=== PATIENT | male | born 1955 | race Caucasian/White ===

== ENCOUNTER 2018-05-28 12:17 | Observation (INO) | payer OTHER, SELFPAY ==
[2018-05-28] VITALS (14 sets, daily range): BP systolic 136–174; BP diastolic 81–107; PULSE 75–98; RESP 14–22; TEMP 36.6–37.1; O2SAT 95–99; BMI 28.1; BMI 27.8
--- NOTE | 2018-05-28 12:38 | CT_ITS ---
STUDY: CT BRAIN WITHOUT CONTRAST REASON FOR EXAM: Male, 62 years old. Numbness of the right side of the body. RADIATION DOSAGE (If Supplied By Facility): CTDIvol = ( 44.99 ) mGy, DLP = ( 812.98 ) mGycm TECHNIQUE: Transaxial CT imaging of the brain was performed without administration of intravenous contrast material. Individualized dose optimization techniques were used for this CT. COMPARISON: None. FINDINGS: Normal soft tissue structures. Normal calvarium. There is mild cerebral atrophy with widening of the extra-axial spaces and ventricular dilatation. Normal white matter tracts of the cerebral hemispheres. Normal basal ganglia and thalami. Normal brainstem. Normal cerebellum. There is no intracranial hemorrhage. There are no findings of an acute ischemic infarction. Atherosclerotic calcification of the cavernous portions of the internal carotid arteries bilaterally. Minimal mucosal thickening of the left maxillary sinus. CT/Brain/Head without Contrast IMPRESSION: Chronic involutional changes of the brain. Electronically Signed: Jorge Ellis MD at 13:44 EDT Tel [phone], Service support ,
--- NOTE | 2018-05-28 12:38 | EKG12_ITS ---
Test Reason : NEURO SX Blood Pressure : / mmHG Vent. Rate : 089 BPM Atrial Rate : 089 BPM P-R Int : 148 ms QRS Dur : 094 ms QT Int : 360 ms P-R-T Axes : 019 -16 004 degrees QTc Int : 438 ms Normal sinus rhythm Inferior infarct , age undetermined Abnormal ECG Confirmed by BRIAN ELIZABETH, LUCAS ([id number]), editor map ELMER ANTONY ([id number]) on 05/30/2018 9:56:50 AM Referred By: Edith Rodriguez Confirmed By:LUCAS TORRES MD
[2018-05-28] MEDS: 0.9% Normal Saline 1,000 ML 100 ML IV (13:16)
[2018-05-28 13:33] LABS: Absolute Lymphocyte Count 1.39 X10^3/ul (0.83-4.51); Absolute Neutrophil Count 4.4 X10^3/uL (2.0-7.7); Basophil# 0.03 X10^3/uL; Basophil% 0.5 % (0-1); Eosinophil# 0.09 X10^3/uL; Eosinophils% 1.4 % (0-5); Hematocrit 45.4 % (40-54); Hemoglobin 14.8 g/dl (13.0-16.5); Lymphocyte # 1.39 X10^3/ul (4.0); Lymphocyte % 21.4 % (19-41); Mean Corp Hgb Conc 32.6 g/gl (32-36); Mean Corpuscular Hgb 28.8 pg (27.0-32.0); Mean Corpuscular Volume 88.5 fL (80-94); Mean Platelet Vol. 9.3 fl (6.2-12.0); Monocyte% 9.2 % (0-10); Neutrophil # 4.39 X10^3/uL (2.7-7.7); Neutrophil % 67.3 % (47-70); Platelet Count 251 K/mm3 (150-450); RBC Distribution Width CV 14.4 % (11.6-14.6); RBC Distribution Width SD 46.6 fl (35.1-43.9); Red Blood Count 5.13 M/mm3 (4.6-6.2); White Blood Count 6.5 K/mm3 (4.4-11.0)
[2018-05-28 13:36] LABS: POSITIVE COUNT NO; POSITIVE DIFFERENTIAL NO; POSITIVE MORPHOLOGY NO
[2018-05-28 13:45] LABS: Bedside Glucose 98 mg/dL (70-110)
[2018-05-28 13:48] LABS: Anion Gap 9 (5-15); BUN 17 mg/dL (7-18); BUN/Creat Ratio 13.3 RATIO (10-20); Calcium,Total 9.3 mg/dL (8.5-10.1); Chloride 108 mmol/L (98-107); Creatinine, Serum 1.28 mg/dL (0.70-1.30); EST Glomerular Filtration Rate 61 mL/min (>60); Est Glom Filt Rate - Afr Amer 73 mL/min (>60); Estimated Creatinine Clearance 66.52 ml/min; Glucose 96 mg/dL (74-106); Potassium 3.6 mmol/L (3.5-5.1); Sodium Level 142 mmol/L (136-145)
[2018-05-28 13:57] LABS: International Normalized Ratio 0.9; Prothrombin Time (Protime)PT. 11.9 SECONDS (11.7-14.9)
--- NOTE | 2018-05-28 14:20 | ED.VISSUMM ---
- ER Visit Summary Date of Service: 05/28/18 Chief Complaint: Right-sided numbness History of Present Illness: The patient is a [address] Erwin Bae. He reports that 2 days ago he had numbness in his right face, hand, and foot the last approximately 15 minutes. This resolved and he did not think much of it. However, he reports that at 9:00 this morning the numbness on the right returned and has waxed and waned since that time. He reports that he still has paresthesias on the sole of his right foot. Patient denies any weakness, slurred speech, a aphasia, vertigo, or change in vision. Review of systems is negative. Physical Examination: Vitals: Stable. Afebrile. General: Well-nourished and well-developed. Head: Normocephalic atraumatic. Neck: Supple, no lymphadenopathy. No JVD. Nontender. Cardiovascular: Regular rate and rhythm. No murmurs. Respiratory: No respiratory distress. Clear to auscultation bilaterally. Abdominal: Soft, nontender, nondistended, normal bowel sounds. No guarding, rebound, or peritoneal signs. Back: Nontender. Extremities: Nontender, no edema. Skin: Normal color, no rash. Neurologic: Alert and oriented ?3. Cranial nerves II through XII are intact. Normal strength and sensation. Psych: Normal affect. Test Results: EKG is sinus at 89 with no acute changes. Troponin is negative. INR 0.9. PTT is 27.0. Chloride is 108. CBC is normal. CT brain shows chronic changes. Emergency Department Course and Treatment: Patient's NIH scale is 0. He is not a TPA candidate. Treatment Plan: Patient will be discussed with the hospitalist. He will be admitted for further evaluation and treatment. Disposition: Admitted in stable condition. Impression: 1. TIA. This note was generated with Cojoin dictation software. It may contain incorrect words, spelling, and punctuation that were not noted in review of the chart prior to signing ED Disposition - Plan for ED Patient: Chief Complaint: Neuro S/Sx Referrals: Erwin Bae MD [Primary Care Provider] -
--- NOTE | 2018-05-28 14:58 | ECHOD_ITS ---
Reason For Study: TIA/CVA Procedure This was a 2D Doppler, Color Flow transthoracic echocardiogram. The exam was of adequate technical quality. Exam performed portable in patient room. Left Ventricle Normal LV size. Left ventricular systolic function is normal. The estimated ejection fraction is 65 %. Diastolic function is indeterminate. No regional wall motion abnormalities noted. Right Ventricle Normal RV size. Normal systolic function. Atria Normal left atrium. Normal right atrium. No doppler evidence for ASD. Bubble contrast study negative for right to left interatrial shunt. Mitral Valve There is no mitral annular calcification. Mild focal mitral valve calcification of the posterior leaflet. The mitral valve chordae are thickened and/or calcified. Mild (1+) mitral valve insufficiency. Tricuspid Valve Normal tricuspid valve. Trivial tricuspid valve insufficiency. Right ventricular systolic pressure estimated to be 29 mmHg. Aortic Valve Trisinus/trileaflet aortic valve. Mild diffuse aortic valve thickening. Mild focal aortic valve calcification. Aortic sclerosis, no stenosis. Pulmonic Valve The pulmonic valve is not well visualized. Trivial pulmonic valve insufficiency. Great Vessels Normal sized aortic root. Pericardium/Pleural No pericardial effusion. Medication Performed a rapid injection of agitated mix of 9 cc saline and 1cc air to assess for atrial septal defect. MMode/2D Measurements & Calculations LVIDd: 4.5 cm IVSd: 1.2 cm Ao root diam: 3.4 cm LVIDs: 3.2 cm LVPWd: 1.1 cm LA dimension: 4.0 cm RVDd: 3.2 cm FS: 29.2 % LAV(MOD-bp): 57.1 ml LA A4 area: 17.6 cm2 RA A4 area: 13.9 cm2 LAV(MOD-bp) Indexed: 26.4 ml/m2 LAV(MOD-sp2): 59.8 ml LAV(MOD-sp4): 53.3 ml Doppler Measurements & Calculations MV E max beto: 54.7 cm/sec Lat Peak E' Beto: 9.0 cm/sec Med Peak E' Beto: 8.0 cm/sec MV A max beto: 64.8 cm/sec E/E' lat: 6.1 E/E' med: 6.8 MV E/A: 0.85 Ao V2 max: 90.5 cm/sec LV V1 max: 76.3 cm/sec PA V2 max: 74.2 cm/sec Ao max P.3 mmHg LV V1 max P.3 mmHg TR max beto: 252.3 cm/sec TR max P.6 mmHg Interpretation Summary Left ventricular systolic function is normal. The estimated ejection fraction is 65 %. Mild focal mitral valve calcification of the posterior leaflet. The mitral valve chordae are thickened and/or calcified. Mild (1+) mitral valve insufficiency. Trivial tricuspid valve insufficiency. Aortic sclerosis, no stenosis. Trivial pulmonic valve insufficiency. Right ventricular systolic pressure estimated to be 29 mmHg. Diastolic function is indeterminate. Bubble contrast study negative for right to left interatrial shunt. Ordering Physician: Edith Rodriguez Referring Physician: Erwin Bae Performed By: Radha Rios RDCS, RVT
--- NOTE | 2018-05-28 14:58 | MRI_ITS ---
STUDY: MRA NECK WITH AND WITHOUT CONTRAST REASON FOR EXAM: Male, 62 years old. Stroke TECHNIQUE: 3-D hjkl-[id number]-phbaup (TOF) imaging was performed in an 1.5 T MRI scanner. 9 ml of Gadavist was administered for the contrast enhanced images. COMPARISON: None. FINDINGS: RIGHT CAROTID ARTERIES: Normal right common carotid artery (CCA). Normal right common carotid bulb. Normal origin of the right internal carotid (ICA) artery without a hemodynamically significant stenosis. Normal visualized cervical portion of the right internal carotid artery. Normal origin of the right external carotid artery (ECA). LEFT CAROTID ARTERIES: Normal left common carotid artery (CCA). Normal left common carotid bulb. Normal origin of the left internal carotid (ICA) artery without a hemodynamically significant stenosis. Normal visualized cervical portion of the left internal carotid artery. Normal origin of the left external carotid artery (ECA). VERTEBRAL ARTERIES: Normal antegrade flow within the bilateral vertebral artery without a hemodynamically significant stenosis. MRI/MRA Neck WITH and W/O Contrast IMPRESSION: Normal bilateral cervical carotid and vertebral arteries. Electronically Signed: Cameron Rosenbaum MD at 20:58 EDT , Service support ,
--- NOTE | 2018-05-28 14:58 | MRI_ITS ---
STUDY: MRI BRAIN WITHOUT CONTRAST REASON FOR EXAM: Male, 62 years old. Right-sided numbness TECHNIQUE: Standardized multiplanar fat and water weighted pulse sequences were obtained. COMPARISON: CT of the brain on May 28, 2018 FINDINGS: Mild atrophy.. Minimal periventricular white matter ischemic changes without mass effect or restricted diffusion. Normal bilateral basal ganglia. Normal thalami. There is no extra-axial fluid accumulation. Normal flow voids within the major intracranial circulation suggesting patency by spin echo criteria. Empty sella deformity of uncertain clinical significance. Normal, infundibular stalk, optic chiasm and hypothalamus. Normal tectal plate and pineal gland. Normal midbrain, lake and medulla. Normal cerebellum. Normal basal cisterns. Normal bilateral temporal bones. Normal bilateral internal auditory canals. No demonstrated orbital abnormality, within the constraints of a routine brain study. Mild mucosal thickening of the bilateral maxillary and left sphenoid sinus Normal calvarium and skull base. Normal visualized soft tissue structures. Normal visualized upper cervical spine. MRI/Brain without Contrast IMPRESSION: Mild atrophy and minimal periventricular white matter disease without evidence for acute infarct.. Empty sella deformity of uncertain clinical significance Electronically Signed: Cameron Rosenbaum MD at 19:48 EDT , Service support ,
--- NOTE | 2018-05-28 15:00 | HP.PCM_ITS ---
Problem List (1) Benign prostatic hyperplasia Status: Chronic History of Present Illness Date of Admission: 05/28/18 Chief Complaint: Right-sided numbness. The patient is a 62 year old M with past medical history as mentioned above presented to the emergency room because of right-sided numbness. His symptoms started 2 days ago with numbness around the right corner his mouth, right hand and right foot that lasted for about 15-30 minutes and resolved spontaneously. On that day, patient did not pay attention to those symptoms. Today, he went to work and he started having exact same symptoms with numbness on the right side of his face on the corner of the mouth as well as right hand and right foot and his symptoms today lasted for about couple of hours and he decided to come to the emergency room. He reported associated ringing in the right ear as well as some discomfort in the back of his neck. He denied blurred vision, slurred speech, focal arm or leg weakness. He denied chest pain or shortness of breath. He denied vertigo or ear symptoms except right ear ringing which resolved. At this time, he mentioned that numbness in the right side is almost gone. In the emergency department, initial blood pressure was slightly elevated and improved. His NIH score was 0. His routine blood work was unremarkable. His EKG revealed normal sinus rhythm without evidence of cardiac arrhythmias or ischemic changes. His troponin was negative. Pro time and INR were normal. CT scan brain showed no acute findings. Patient is being admitted for right side paresthesia probably due to TIA for evaluation. Past Medical History Past Medical History (Chronic Problems): Chronic Problems Benign prostatic hyperplasia (Chronic) Allergies Penicillins Allergy (Verified 05/28/18 12:19) Anaphylaxis Home Medications: Ambulatory Orders Medication Instructions Recorded Aspirin [Aspirin EC] 81 mg PO DAILY 05/28/18 Caffeine 200 mg PO DAILY 05/28/18 Cranberry Fruit Extract [Cranberry] 250 mg PO DAILY 05/28/18 Green Tea [place] Extract [Green Tea 150 mg PO DAILY 05/28/18 Extract] L.acidoph,Paracasei, B.lactis 1 each PO PRN PRN 05/28/18 [Probiotic] Melatonin/Pyridoxine [Melatonin 5 5 mg PO QHS 05/28/18 mg Tablet] Multivitamin [Daily Multiple 1 tab PO DAILY 05/28/18 Vitamin] [place]-3 Fatty Acids/Fish Oil [Fish 1,000 mg PO DAILY 05/28/18 Oil 1,000 mg Capsule] Tamsulosin HCl [Flomax] 0.4 mg PO DAILY 05/28/18 Tyrosine [l-Tyrosine] 500 mg PO DAILY 05/28/18 Ubidecarenone [Co Q-10] 100 mg PO DAILY 05/28/18 Surgical History: no surgical history Psychiatric History: No pertinent psych hx Lives: Spouse/ Significant Other Smoking Status: Current every day smoker Tobacco Use: Vapor Alcohol: None Drugs: None - *Family History Maternal History Items: Stroke, - - Multiple myeloma. Paternal History Items: Hypertension Review of Systems Constitutional: Denies: Anorexia, Chills, Fever, Night Sweats Eyes: Denies: Blurred vision, Cataracts, Drainage, Eyelid Inflammation, Redness HEENT: Denies: Difficulty Hearing, Ear Pain, Eye Pain Cardiovascular: Denies: Chest Pain, Chest Pressure, Chest Tightness, Edema, Heaviness, Palpitations, Syncope Respiratory: Denies: Cough, Pleuritic Pain, Shortness of Breath, Sputum production, Wheezing Gastrointestinal: Denies: Abdominal Pain, Constipation, Diarrhea, Nausea, Vomiting Genitourinary: Denies: Dysuria, Frequency, Hematuria Musculoskeletal: Denies: Arm Pain, Back Pain, Foot Pain Skin: Denies: Dryness, Rash Neurological: Reports: Numbness, Tingling. Denies: Balance problems, Blurred vision, Double vision, Slurred speech, Confusion, Headaches, Incoordination Psychiatric: Denies: Anxiety, Depression Endocrine: Denies: Change in Body Habitus, Polydipsia VTE Information - Inpt Only VTE Present on Admission: No VTE Mechan Device Prophylaxis: None VTE Pharm Prophylaxis ordered?: Yes - Physical Exam General: Alert, Oriented x3, Cooperative, No apparent distress HEENT: Atraumatic, PERRLA, EOMI, Normocephalic Oral: Moist Mucosa, No Gingival or Mucosal Lesions/ Ulcerations Neck: Supple, No JVD, Negative Carotid Bruits, Trachea Midline, Thyroid Normal Size and Texture Lungs: Clear to auscultation, Normal air movement, No rhonchi, No wheeze, No rales Cardiovascular: Regular rate, Regular Rhythm, Normal S1, Normal S2, PMI Normal Abdomen: Bowel Sounds Present, Soft, Non Tender, Non-Distended, No Hepato- splenomegaly Extremities: No clubbing, No cyanosis, No edema Skin: No rashes, No breakdown Lymphatic: No Cervical, Supraclavicular, or Inguinal Adenopathy Neurological: Cranial nerves II-XII grossly intact, Motor Exam 5/5 strength throughout Psych/Mental Status: Normal Affect, Appropriate, Alert and oriented to time, place, person, mood and affect Vital Signs Temp Pulse Resp BP Pulse Ox 98.5 F 83 18 136/86 H 99 05/28/18 12:19 05/28/18 14:09 05/28/18 14:09 05/28/18 14:09 05/28/18 14:09 Oxygen Delivery Method Room Air Weight: 207 lb 10.807 oz Body Mass Index (BMI) 28.1 Finger Stick Blood Glucose 98 Laboratory Tests Past 24 Hrs 05/28/18 05/28/18 05/28/18 13:05 13:05 13:05 WBC 6.5 RBC 5.13 Hgb 14.8 Hct 45.4 MCV 88.5 MCH 28.8 MCHC 32.6 RDW 14.4 RDW Differential 46.6 H Plt Count 251 MPV 9.3 Immature Gran % (Auto) 0.200 Neut % (Auto) 67.3 Lymph % (Auto) 21.4 [place] % (Auto) 9.2 Eos % (Auto) 1.4 Baso % (Auto) 0.5 Absolute Neuts (auto) 4.4 Absolute Lymphs (auto) 1.39 Total Counted Not Reportable PT 11.9 INR 0.9 APTT 27.0 Sodium 142 Potassium 3.6 Chloride 108 H Carbon Dioxide 25.0 Anion Gap 9 BUN 17 Creatinine 1.28 Estim Creat Clear Calc 66.52 Est GFR (MDRD) Af Amer 73 Est GFR (MDRD) Non-Af 61 BUN/Creatinine Ratio 13.3 Glucose 96 Calcium 9.3 Troponin I < 0.015 POC Glucose 05/28/18 13:31 POC Glucose 98 Clinical Impression(s) from Imaging Studies Brain CT 05/28/18 12:38 IMPRESSION: Chronic involutional changes of the brain. Electronically Signed: Jorge Ellis MD at 13:44 EDT Tel [phone], Service support , Assessment/Plan This is a 62 years old male patient presented to the emergency room because of right side paresthesia and he is being admitted for evaluation for possible TIA. #1 right-sided paresthesia/probable TIA: CT scan brain without acute findings. At this time, NIH stroke score is 0. EKG revealed normal sinus rhythm without evidence of cardiac arrhythmias or ischemic changes. Neurological examination is intact, no focal deficits. Plan: Admit to PCU for observation, cardiac monitoring, NIH stroke scale, start aspirin 81 mg p.o. daily, Lipitor 80 mg p.o. daily, fasting lipid profile, MRI brain, MRA of the head and neck with and without contrast, 2D echocardiogram, monitor blood pressure. #2 benign prostatic hypertrophy: Continue Flomax. #3 DVT prophylaxis: Subcu Lovenox. This note was generated with [employer] dictation software. It may contain incorrect words, spelling, and punctuation that were not noted in checking the note before signing. Code Visit OBSV E&M: 02294 Initial observation care L2
[2018-05-28] MEDS: 0.9% NaCl Peripheral Flush Adult/Peds IV (16:03)
--- NOTE | 2018-05-28 18:15 | MRI_ITS ---
STUDY: MRA OF THE HEAD WITHOUT CONTRAST REASON FOR EXAM: Male, 62 years old. CVA TECHNIQUE: 3-D iouv-[id number]-rhrxys (TOF) imaging was performed with MIPs. The study was performed unenhanced. COMPARISON: None. FINDINGS: Normal bilateral petrous carotid arteries. Normal right cavernous carotid artery with a normal supraclinoid bifurcation. Normal left cavernous carotid artery with a normal supraclinoid bifurcation. Normal right A1 segments of the anterior cerebral artery. Severely narrowed left A1 segments of the anterior cerebral artery. Normal intact anterior communicating artery (ACOM). Normal bilateral A2 segments of the anterior cerebral arteries. Normal right M1 and M2 segments of the middle cerebral arteries, with a normal M1 bifurcation. Normal left M1 and M2 segments of the middle cerebral arteries, with a normal M1 bifurcation. Right posterior communicating artery not visualized consistent with normal variant.). Normal left posterior communicating artery (PCOM). Normal bilateral vertebral arteries. Normal basilar artery with a normal basilar bifurcation. The visualized bilateral superior cerebellar (SCA) arteries are normal. Normal bilateral P1, P2 and visualized P3 segments of the posterior cerebral arteries. There is no demonstrated aneurysm of the [place]. There is no major vessel occlusion or hemodynamically significant stenosis. There is no demonstrated abnormality of the visualized brain. MRI/MRA Head ONLY without Contrast IMPRESSION: Narrowed A1 segment of the left anterior cerebral artery No other significant abnormality Electronically Signed: Cameron Rosenbaum MD at 20:57 EDT , Service support ,
[2018-05-28] MEDS: Atorvastatin Calcium 80 MG Tablet PO (21:07)
[2018-05-29] VITALS (7 sets, daily range): BP systolic 143–149; BP diastolic 84–92; PULSE 67–96; RESP 16–18; TEMP 36.4–36.9; O2SAT 95–97; BMI 27.8
[2018-05-29 07:22] LABS: Cholesterol 240 mg/dL (200); High Density Lipoprotein 32 mg/dL; Triglycerides 87 mg/dL; Very Low Density Lipoprotein 17 mg/dL (5-40)
[2018-05-29] MEDS: Enoxaparin 40 MG/0.4 ML Syringe SC (08:33)
[2018-05-29] MEDS: Aspirin 81 MG TAB.CHEW PO (08:33)
[2018-05-29] MEDS: Tamsulosin HCl 0.4 MG Capsule PO (08:33)
--- NOTE | 2018-05-29 11:35 | PCM.DC ---
- Discharge Diagnoses Current Active Problems: Current Active and Chronic Problems Benign prostatic hyperplasia (Chronic) You will use the following diet at home:: Cardiac Discharge Activity: Return to Normal Activity Call your doctor if you observe: Numbness or Tingling, Shortness of breath, Dizziness, Fainting spells, Chest pain Allergies/Adverse Reactions: Allergies Penicillins Allergy (Verified 05/28/18 12:19) Anaphylaxis Medications to take at Discharge Aspirin [Aspirin EC] 81 mg PO DAILY 05/28/18 Caffeine 200 mg PO DAILY 05/28/18 Cranberry Fruit Extract [Cranberry] 250 mg PO DAILY 05/28/18 Green Tea [place] Extract [Green Tea Extract] 150 mg PO DAILY 05/28/18 L.acidoph,Paracasei, B.lactis [Probiotic] 1 each PO PRN PRN 05/28/18 Melatonin/Pyridoxine [Melatonin 5 mg Tablet] 5 mg PO QHS 05/28/18 Multivitamin [Daily Multiple Vitamin] 1 tab PO DAILY 05/28/18 [place]-3 Fatty Acids/Fish Oil [Fish Oil 1,000 mg Capsule] 1,000 mg PO DAILY 05/28/18 Tamsulosin HCl [Flomax] 0.4 mg PO DAILY 05/28/18 Tyrosine [l-Tyrosine] 500 mg PO DAILY 05/28/18 Ubidecarenone [Co Q-10] 100 mg PO DAILY 05/28/18 Atorvastatin Calcium 40 mg PO QHS #30 tablet 05/29/18 The following prescriptions were given: Atorvastatin Calcium 40 mg PO QHS #30 tablet Primary Care Physician: Erwin Bae MD [Primary Care Provider] - Please follow up with your Primary Care Physician in: 1 Week Test Results: Test results from this visit will be discussed in further detail at your follow-up appointment, if applicable. Please Follow Up With: Jos Wong MD When: 2-4 Weeks Proposed Discharge Date: 05/29/18
--- NOTE | 2018-05-29 11:38 | PCM.DC.SUM ---
<Blank Lloyd - Last Filed: 05/29/18 14:23> Discharge Date and Diagnosis Date of Admission: 05/28/18 Date of Discharge: 05/29/18 - Primary Discharge Diagnosis 1. Probable TIA 2. Hyperlipidemia - Secondary Discharge Diagnosis Chronic Problems Benign prostatic hyperplasia (Chronic) Hospital Course and Treatment Imaging Results: Diagnostic Data Brain CT 05/28/18 12:38 IMPRESSION: Chronic involutional changes of the brain. Electronically Signed: Jorge Ellis MD at 13:44 EDT Tel [phone], Service support , Brain MRI 05/28/18 14:58 IMPRESSION: Mild atrophy and minimal periventricular white matter disease without evidence for acute infarct.. Empty sella deformity of uncertain clinical significance Electronically Signed: Cameron Rosenbaum MD at 19:48 EDT , Service support , Neck MRA 05/28/18 14:58 IMPRESSION: Normal bilateral cervical carotid and vertebral arteries. Electronically Signed: Cameron Rosenbaum MD at 20:58 EDT , Service support , Head MRA 05/28/18 18:15 IMPRESSION: Narrowed A1 segment of the left anterior cerebral artery No other significant abnormality Electronically Signed: Cameron Rosenbaum MD at 20:57 EDT , Service support , Dr. Wong- Neurology Operations: None Procedures: 2-D Echocardiogram Summary of Care Provided: The patient is a 62 year old M admitted 05/28/2018 due to right-sided numbness. He has a past medical history of BPH. Neurology consulted. Probable TIA. MRI of brain showed no acute infarct. Neck MRA showed normal bilateral cervical carotid and vertebral arteries. Echocardiogram showed an EF of 65%, mild mitral valve insufficiency, RVSP estimated to be 29 mmHg. Negative for right to left intra-atrial shunt. Patient will continue home aspirin regimen. Started on statin for hyperlipidemia. EKG without ST-T changes. Troponin negative. Patient is stable for discharge home with follow-up with primary care physician in 1 week and neurology in 2-4 weeks. General: Alert, Oriented x3, Cooperative, No apparent distress HEENT: Atraumatic, PERRLA, EOMI, Normocephalic Oral: Moist Mucosa, No Gingival or Mucosal Lesions/ Ulcerations Neck: Supple, No JVD, Negative Carotid Bruits Lungs: Clear to auscultation, Normal air movement Cardiovascular: Regular rate, Regular Rhythm, Normal S1, Normal S2 Abdomen: Bowel Sounds Present, Soft, Non Tender, Non-Distended Extremities: No clubbing, No cyanosis, No edema Skin: No rashes, No breakdown Lymphatic: No Cervical, Supraclavicular, or Inguinal Adenopathy Neurological: Cranial nerves II-XII grossly intact, Motor Exam 5/5 strength throughout Psych/Mental Status: Normal Affect, Appropriate Patient seen exam prior to discharge. Physical assessment as noted above. Patient stable for discharge home with the follow-up her conditions as noted above. This patient was seen by SAMAN Lopez under the supervision of Dr. Love. - Physical Exam Vital Signs Temp Pulse Resp BP Pulse Ox 97.6 F L 76 18 149/92 H 97 05/29/18 08:29 05/29/18 11:32 05/29/18 08:29 05/29/18 08:29 05/29/18 08:29 Oxygen Delivery Method Room Air Weight: 205 lb 3.2 oz Body Mass Index (BMI) 27.8 Finger Stick Blood Glucose 98 Intake and Output for Last 24 Hours 05/27/18 05/28/18 05/29/18 23:59 23:59 23:59 Intake Total 240 / 240 480 / 480 Balance 240 / 240 480 / 480 Laboratory Tests Past 24 Hrs 05/28/18 05/28/18 05/28/18 13:05 13:05 13:05 WBC 6.5 RBC 5.13 Hgb 14.8 Hct 45.4 MCV 88.5 MCH 28.8 MCHC 32.6 RDW 14.4 RDW Differential 46.6 H Plt Count 251 MPV 9.3 Immature Gran % (Auto) 0.200 Neut % (Auto) 67.3 Lymph % (Auto) 21.4 [place] % (Auto) 9.2 Eos % (Auto) 1.4 Baso % (Auto) 0.5 Absolute Neuts (auto) 4.4 Absolute Lymphs (auto) 1.39 Total Counted Not Reportable PT 11.9 INR 0.9 APTT 27.0 Sodium 142 Potassium 3.6 Chloride 108 H Carbon Dioxide 25.0 Anion Gap 9 BUN 17 Creatinine 1.28 Estim Creat Clear Calc 66.52 Est GFR (MDRD) Af Amer 73 Est GFR (MDRD) Non-Af 61 BUN/Creatinine Ratio 13.3 Glucose 96 Calcium 9.3 Troponin I < 0.015 Triglycerides Cholesterol LDL Cholesterol VLDL Cholesterol HDL Cholesterol 05/29/18 06:42 WBC RBC Hgb Hct MCV MCH MCHC RDW RDW Differential Plt Count MPV Immature Gran % (Auto) Neut % (Auto) Lymph % (Auto) [place] % (Auto) Eos % (Auto) Baso % (Auto) Absolute Neuts (auto) Absolute Lymphs (auto) Total Counted PT INR APTT Sodium Potassium Chloride Carbon Dioxide Anion Gap BUN Creatinine Estim Creat Clear Calc Est GFR (MDRD) Af Amer Est GFR (MDRD) Non-Af BUN/Creatinine Ratio Glucose Calcium Troponin I Triglycerides 87 Cholesterol 240 H LDL Cholesterol 191 H VLDL Cholesterol 17 HDL Cholesterol 32 L POC Glucose 05/28/18 13:31 POC Glucose 98 Discharge Diet: Low fat/ Low Cholesterol Discharge Activity: Return to Normal Activity Call your doctor if you observe: Numbness or Tingling, Shortness of breath, Dizziness, Fainting spells, Chest pain Home Medications: Medications to take at Discharge Caffeine 200 mg PO DAILY 05/28/18 Cranberry Fruit Extract [Cranberry] 250 mg PO DAILY 05/28/18 Green Tea [place] Extract [Green Tea Extract] 150 mg PO DAILY 05/28/18 L.acidoph,Paracasei, B.lactis [Probiotic] 1 each PO PRN PRN 05/28/18 Melatonin/Pyridoxine [Melatonin 5 mg Tablet] 5 mg PO QHS 05/28/18 Multivitamin [Daily Multiple Vitamin] 1 tab PO DAILY 05/28/18 [place]-3 Fatty Acids/Fish Oil [Fish Oil 1,000 mg Capsule] 1,000 mg PO DAILY 05/28/18 Tamsulosin HCl [Flomax] 0.4 mg PO DAILY 05/28/18 Tyrosine [l-Tyrosine] 500 mg PO DAILY 05/28/18 Ubidecarenone [Co Q-10] 100 mg PO DAILY 05/28/18 Atorvastatin Calcium 40 mg PO QHS #30 tablet 05/29/18 Clopidogrel Bisulfate [Plavix] 75 mg PO DAILY #30 tablet 05/29/18 Following Prescrptions Were Given to Patient: Atorvastatin Calcium 40 mg PO QHS #30 tablet Clopidogrel Bisulfate [Plavix] 75 mg PO DAILY #30 tablet Primary Care Physician: Erwin Bae MD [Primary Care Provider] - Please follow up with your Primary Care Physician in: 1 Week Please Follow Up With: Jos Wong MD When: 2-4 Weeks Disposition: Home Minutes spent on discharge:: 35 Patient Condition:: Stable Medical Necessity - Tobacco Use Smoking Status: Current every day smoker Tobacco Use: Vapor, - Meaningful Use Info Meaningful Use Diagnoses (Choose all that apply): None applicable <[place]sil,[place] - Last Filed: 05/29/18 17:15> Discharge Date and Diagnosis - Secondary Discharge Diagnosis Chronic Problems (Last Updated 05/29/18 @ 13:59 by Jos Wong MD) Benign prostatic hyperplasia (Chronic) Hospital Course and Treatment Summary of Care Provided: The patient is a 62 year old M with no history of prior CVA or TIA who was admitted with right-sided numbness. Per H&P, patient had reported symptoms starting 2 days prior to admission with numbness around the right corner of his mouth, right hand and foods that lasted for less than 30 minutes and resolve spontaneously. Patient came in with the results presentation a couple of hours prior to admission. He had associated ringing in his right ears as well as discomfort in the back of his neck. This resolved. Patient had a initial CT scan level is unremarkable; showed chronic ambulatory changes. Had a brain MRI showed mild atrophic, minimal periventricular white matter disease without evidence of acute infarct. MRA of the neck showed bilateral cervical carotid and vertebral arteries. MRA of the head showed narrowed A1 segment of the left CHARITY He was seen by neurology, started on Plavix, statin, outpatient polysomnogram plan. Subjective: Patient was seen and examined on the day of discharge. He complains of tingling numbness on the right side of the face as well as the lips. This had resolved early on in the evening but has recurred. Denies any weakness in his extremities. Denies any dizziness or chest pain or shortness of breath. - Physical Exam General: Alert, Oriented x3, Cooperative, No apparent distress HEENT: Atraumatic, PERRLA, EOMI, Normocephalic Oral: Moist Mucosa Neck: Supple Lungs: Clear to auscultation, Normal air movement Cardiovascular: Regular rate, Regular Rhythm, Normal S1, Normal S2, No murmurs Abdomen: Bowel Sounds Present, Soft, Non Tender, Non-Distended, No Hepato-splenomegaly Extremities: No edema Skin: No rashes, No breakdown Musculoskeletal: No Tenderness to Palpation of Joints or Extremities Lymphatic: No Cervical, Supraclavicular, or Inguinal Adenopathy Neurological: Cranial nerves II-XII grossly intact, Neuro grossly intact - except for tingling and numbness on right side of face Psych/Mental Status: Normal Affect, Appropriate Vital Signs Temp Pulse Resp BP Pulse Ox 98.5 F 96 16 143/90 H 95 05/29/18 14:30 05/29/18 14:30 05/29/18 14:30 05/29/18 14:30 05/29/18 14:30 Oxygen Delivery Method Room Air Weight: 93.077 kg Body Mass Index (BMI) 27.8 Finger Stick Blood Glucose 98 Intake and Output for Last 24 Hours 05/27/18 05/28/18 05/29/18 23:59 23:59 23:59 Intake Total 240 / 240 960 / 960 Balance 240 / 240 960 / 960 Laboratory Tests Past 24 Hrs 05/29/18 06:42 Triglycerides 87 Cholesterol 240 H LDL Cholesterol 191 H VLDL Cholesterol 17 HDL Cholesterol 32 L Discharge Diet: 2000 mg Sodium Diet Code Visit OBSV E&M: 54617 Observation care discharge
--- NOTE | 2018-05-29 11:40 | DCINST_ITS ---
- Discharge Diagnoses Current Active Problems: Current Active and Chronic Problems Benign prostatic hyperplasia (Chronic) You will use the following diet at home:: Cardiac Discharge Activity: Return to Normal Activity Call your doctor if you observe: Numbness or Tingling, Shortness of breath, Dizziness, Fainting spells, Chest pain Allergies/Adverse Reactions: Allergies Penicillins Allergy (Verified 05/28/18 12:19) Anaphylaxis Medications to take at Discharge Aspirin [Aspirin EC] 81 mg PO DAILY 05/28/18 Caffeine 200 mg PO DAILY 05/28/18 Cranberry Fruit Extract [Cranberry] 250 mg PO DAILY 05/28/18 Green Tea [place] Extract [Green Tea Extract] 150 mg PO DAILY 05/28/18 L.acidoph,Paracasei, B.lactis [Probiotic] 1 each PO PRN PRN 05/28/18 Melatonin/Pyridoxine [Melatonin 5 mg Tablet] 5 mg PO QHS 05/28/18 Multivitamin [Daily Multiple Vitamin] 1 tab PO DAILY 05/28/18 [place]-3 Fatty Acids/Fish Oil [Fish Oil 1,000 mg Capsule] 1,000 mg PO DAILY 05/28/18 Tamsulosin HCl [Flomax] 0.4 mg PO DAILY 05/28/18 Tyrosine [l-Tyrosine] 500 mg PO DAILY 05/28/18 Ubidecarenone [Co Q-10] 100 mg PO DAILY 05/28/18 Atorvastatin Calcium 40 mg PO QHS #30 tablet 05/29/18 The following prescriptions were given: Atorvastatin Calcium 40 mg PO QHS #30 tablet Primary Care Physician: Erwin Bae MD [Primary Care Provider] - Please follow up with your Primary Care Physician in: 1 Week Test Results: Test results from this visit will be discussed in further detail at your follow- up appointment, if applicable. Please Follow Up With: Jos Wong MD When: 2-4 Weeks Proposed Discharge Date: 05/29/18
--- NOTE | 2018-05-29 11:44 | DS.PCM_ITS ---
Addendum entered and electronically signed by SAMAN Lopez 05/29/18 14:24: Code Visit Neurology recommending changing aspirin to Plavix at discharge due to possible small vessel ischemia. Patient will be discharged on Plavix 75 mg daily. Outpatient PSG ordered by neurology as well. Original Note: <Blank Lloyd - Last Filed: 05/29/18 14:23> Discharge Date and Diagnosis Date of Admission: 05/28/18 Date of Discharge: 05/29/18 - Primary Discharge Diagnosis 1. Probable TIA 2. Hyperlipidemia - Secondary Discharge Diagnosis Chronic Problems Benign prostatic hyperplasia (Chronic) Hospital Course and Treatment Imaging Results: Diagnostic Data Brain CT 05/28/18 12:38 IMPRESSION: Chronic involutional changes of the brain. Electronically Signed: Jorge Ellis MD at 13:44 EDT Tel [phone], Service support , Brain MRI 05/28/18 14:58 IMPRESSION: Mild atrophy and minimal periventricular white matter disease without evidence for acute infarct.. Empty sella deformity of uncertain clinical significance Electronically Signed: Cameron Rosenbaum MD at 19:48 EDT , Service support , Neck MRA 05/28/18 14:58 IMPRESSION: Normal bilateral cervical carotid and vertebral arteries. Electronically Signed: Cameron Rosenbaum MD at 20:58 EDT , Service support , Head MRA 05/28/18 18:15 IMPRESSION: Narrowed A1 segment of the left anterior cerebral artery No other significant abnormality Electronically Signed: Cameron Rosenbaum MD at 20:57 EDT , Service support , Dr. Wong- Neurology Operations: None Procedures: 2-D Echocardiogram Summary of Care Provided: The patient is a 62 year old M admitted 05/28/2018 due to right-sided numbness. He has a past medical history of BPH. Neurology consulted. Probable TIA. MRI of brain showed no acute infarct. Neck MRA showed normal bilateral cervical carotid and vertebral arteries. Echocardiogram showed an EF of 65%, mild mitral valve insufficiency, RVSP estimated to be 29 mmHg. Negative for right to left intra-atrial shunt. Patient will continue home aspirin regimen. Started on statin for hyperlipidemia. EKG without ST-T changes. Troponin negative. Patient is stable for discharge home with follow-up with primary care physician in 1 week and neurology in 2-4 weeks. General: Alert, Oriented x3, Cooperative, No apparent distress HEENT: Atraumatic, PERRLA, EOMI, Normocephalic Oral: Moist Mucosa, No Gingival or Mucosal Lesions/ Ulcerations Neck: Supple, No JVD, Negative Carotid Bruits Lungs: Clear to auscultation, Normal air movement Cardiovascular: Regular rate, Regular Rhythm, Normal S1, Normal S2 Abdomen: Bowel Sounds Present, Soft, Non Tender, Non-Distended Extremities: No clubbing, No cyanosis, No edema Skin: No rashes, No breakdown Lymphatic: No Cervical, Supraclavicular, or Inguinal Adenopathy Neurological: Cranial nerves II-XII grossly intact, Motor Exam 5/5 strength throughout Psych/Mental Status: Normal Affect, Appropriate Patient seen exam prior to discharge. Physical assessment as noted above. Patient stable for discharge home with the follow-up her conditions as noted above. This patient was seen by SAMAN Lopez under the supervision of Dr. Love. - Physical Exam Vital Signs Temp Pulse Resp BP Pulse Ox 97.6 F L 76 18 149/92 H 97 05/29/18 08:29 05/29/18 11:32 05/29/18 08:29 05/29/18 08:29 05/29/18 08:29 Oxygen Delivery Method Room Air Weight: 205 lb 3.2 oz Body Mass Index (BMI) 27.8 Finger Stick Blood Glucose 98 Intake and Output for Last 24 Hours 05/27/18 05/28/18 05/29/18 23:59 23:59 23:59 Intake Total 240 / 240 480 / 480 Balance 240 / 240 480 / 480 Laboratory Tests Past 24 Hrs 05/28/18 05/28/18 05/28/18 13:05 13:05 13:05 WBC 6.5 RBC 5.13 Hgb 14.8 Hct 45.4 MCV 88.5 MCH 28.8 MCHC 32.6 RDW 14.4 RDW Differential 46.6 H Plt Count 251 MPV 9.3 Immature Gran % (Auto) 0.200 Neut % (Auto) 67.3 Lymph % (Auto) 21.4 [place] % (Auto) 9.2 Eos % (Auto) 1.4 Baso % (Auto) 0.5 Absolute Neuts (auto) 4.4 Absolute Lymphs (auto) 1.39 Total Counted Not Reportable PT 11.9 INR 0.9 APTT 27.0 Sodium 142 Potassium 3.6 Chloride 108 H Carbon Dioxide 25.0 Anion Gap 9 BUN 17 Creatinine 1.28 Estim Creat Clear Calc 66.52 Est GFR (MDRD) Af Amer 73 Est GFR (MDRD) Non-Af 61 BUN/Creatinine Ratio 13.3 Glucose 96 Calcium 9.3 Troponin I < 0.015 Triglycerides Cholesterol LDL Cholesterol VLDL Cholesterol HDL Cholesterol 05/29/18 06:42 WBC RBC Hgb Hct MCV MCH MCHC RDW RDW Differential Plt Count MPV Immature Gran % (Auto) Neut % (Auto) Lymph % (Auto) [place] % (Auto) Eos % (Auto) Baso % (Auto) Absolute Neuts (auto) Absolute Lymphs (auto) Total Counted PT INR APTT Sodium Potassium Chloride Carbon Dioxide Anion Gap BUN Creatinine Estim Creat Clear Calc Est GFR (MDRD) Af Amer Est GFR (MDRD) Non-Af BUN/Creatinine Ratio Glucose Calcium Troponin I Triglycerides 87 Cholesterol 240 H LDL Cholesterol 191 H VLDL Cholesterol 17 HDL Cholesterol 32 L POC Glucose 05/28/18 13:31 POC Glucose 98 Discharge Diet: Low fat/ Low Cholesterol Discharge Activity: Return to Normal Activity Call your doctor if you observe: Numbness or Tingling, Shortness of breath, Dizziness, Fainting spells, Chest pain Home Medications: Medications to take at Discharge Caffeine 200 mg PO DAILY 05/28/18 Cranberry Fruit Extract [Cranberry] 250 mg PO DAILY 05/28/18 Green Tea [place] Extract [Green Tea Extract] 150 mg PO DAILY 05/28/18 L.acidoph,Paracasei, B.lactis [Probiotic] 1 each PO PRN PRN 05/28/18 Melatonin/Pyridoxine [Melatonin 5 mg Tablet] 5 mg PO QHS 05/28/18 Multivitamin [Daily Multiple Vitamin] 1 tab PO DAILY 05/28/18 [place]-3 Fatty Acids/Fish Oil [Fish Oil 1,000 mg Capsule] 1,000 mg PO DAILY 05/28/18 Tamsulosin HCl [Flomax] 0.4 mg PO DAILY 05/28/18 Tyrosine [l-Tyrosine] 500 mg PO DAILY 05/28/18 Ubidecarenone [Co Q-10] 100 mg PO DAILY 05/28/18 Atorvastatin Calcium 40 mg PO QHS #30 tablet 05/29/18 Clopidogrel Bisulfate [Plavix] 75 mg PO DAILY #30 tablet 05/29/18 Following Prescrptions Were Given to Patient: Atorvastatin Calcium 40 mg PO QHS #30 tablet Clopidogrel Bisulfate [Plavix] 75 mg PO DAILY #30 tablet Primary Care Physician: Erwin Bae MD [Primary Care Provider] - Please follow up with your Primary Care Physician in: 1 Week Please Follow Up With: Jos Wong MD When: 2-4 Weeks Disposition: Home Minutes spent on discharge:: 35 Patient Condition:: Stable Medical Necessity - Tobacco Use Smoking Status: Current every day smoker Tobacco Use: Vapor, - Meaningful Use Info Meaningful Use Diagnoses (Choose all that apply): None applicable <Paintsil,[place] - Last Filed: 05/29/18 17:15> Discharge Date and Diagnosis - Secondary Discharge Diagnosis Chronic Problems (Last Updated 05/29/18 @ 13:59 by Jos Wong MD) Benign prostatic hyperplasia (Chronic) Hospital Course and Treatment Summary of Care Provided: The patient is a 62 year old M with no history of prior CVA or TIA who was admitted with right-sided numbness. Per H&P, patient had reported symptoms starting 2 days prior to admission with numbness around the right corner of his mouth, right hand and foods that lasted for less than 30 minutes and resolve spontaneously. Patient came in with the results presentation a couple of hours prior to admission. He had associated ringing in his right ears as well as discomfort in the back of his neck. This resolved. Patient had a initial CT scan level is unremarkable; showed chronic ambulatory changes. Had a brain MRI showed mild atrophic, minimal periventricular white matter disease without evidence of acute infarct. MRA of the neck showed bilateral cervical carotid and vertebral arteries. MRA of the head showed narrowed A1 segment of the left CHARITY He was seen by neurology, started on Plavix, statin, outpatient polysomnogram plan. Subjective: Patient was seen and examined on the day of discharge. He complains of tingling numbness on the right side of the face as well as the lips. This had resolved early on in the evening but has recurred. Denies any weakness in his extremities. Denies any dizziness or chest pain or shortness of breath. - Physical Exam General: Alert, Oriented x3, Cooperative, No apparent distress HEENT: Atraumatic, PERRLA, EOMI, Normocephalic Oral: Moist Mucosa Neck: Supple Lungs: Clear to auscultation, Normal air movement Cardiovascular: Regular rate, Regular Rhythm, Normal S1, Normal S2, No murmurs Abdomen: Bowel Sounds Present, Soft, Non Tender, Non-Distended, No Hepato-splenomegaly Extremities: No edema Skin: No rashes, No breakdown Musculoskeletal: No Tenderness to Palpation of Joints or Extremities Lymphatic: No Cervical, Supraclavicular, or Inguinal Adenopathy Neurological: Cranial nerves II-XII grossly intact, Neuro grossly intact - except for tingling and numbness on right side of face Psych/Mental Status: Normal Affect, Appropriate Vital Signs Temp Pulse Resp BP Pulse Ox 98.5 F 96 16 143/90 H 95 05/29/18 14:30 05/29/18 14:30 05/29/18 14:30 05/29/18 14:30 05/29/18 14:30 Oxygen Delivery Method Room Air Weight: 93.077 kg Body Mass Index (BMI) 27.8 Finger Stick Blood Glucose 98 Intake and Output for Last 24 Hours 05/27/18 05/28/18 05/29/18 23:59 23:59 23:59 Intake Total 240 / 240 960 / 960 Balance 240 / 240 960 / 960 Laboratory Tests Past 24 Hrs 05/29/18 06:42 Triglycerides 87 Cholesterol 240 H LDL Cholesterol 191 H VLDL Cholesterol 17 HDL Cholesterol 32 L Discharge Diet: 2000 mg Sodium Diet Code Visit OBSV E&M: 90162 Observation care discharge
--- NOTE | 2018-05-29 13:47 | PCM.CONS.GEN ---
Reason for Consult Date of Consultation: 05/29/18 History of Present Illness: The patient is a 62 year old M reports initially symptoms briefly on sunday, then again yesterday morning in right foot while walking, lasted for 2hrs, went home and took an asa, went to physicians office, sent to ED, reports still now right hand and foot abnormal sensations as well as right upper lip. describes symptoms as similar to lidocaine. no recent illness, or med changes. takes asa daily at home. 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 per admit h&p:The patient is a 62 year old M with past medical history as mentioned above presented to the emergency room because of right-sided numbness. His symptoms started 2 days ago with numbness around the right corner his mouth, right hand and right foot that lasted for about 15-30 minutes and resolved spontaneously. On that day, patient did not pay attention to those symptoms. Today, he went to work and he started having exact same symptoms with numbness on the right side of his face on the corner of the mouth as well as right hand and right foot and his symptoms today lasted for about couple of hours and he decided to come to the emergency room. He reported associated ringing in the right ear as well as some discomfort in the back of his neck. He denied blurred vision, slurred speech, focal arm or leg weakness. He denied chest pain or shortness of breath. He denied vertigo or ear symptoms except right ear ringing which resolved. At this time, he mentioned that numbness in the right side is almost gone. In the emergency department, initial blood pressure was slightly elevated and improved. His NIH score was 0. His routine blood work was unremarkable. His EKG revealed normal sinus rhythm without evidence of cardiac arrhythmias or ischemic changes. His troponin was negative. Pro time and INR were normal. CT scan brain showed no acute findings. Patient is being admitted for right side paresthesia probably due to TIA for evaluation. Past Medical History Past Medical History (Chronic Problems): Chronic Problems (Last Updated 05/29/18 @ 13:59 by Jos Wong MD) Benign prostatic hyperplasia (Chronic) Medical History: Medical History (Last Updated 05/29/18 @ 13:59 by Jos Wong MD) Nephrolithiasis N20.0 Ulcerative colitis K51.90 Allergies Penicillins Allergy (Verified 05/28/18 12:19) Anaphylaxis Home Medications: Ambulatory Orders Medication Instructions Recorded Aspirin [Aspirin EC] 81 mg PO DAILY 05/28/18 Caffeine 200 mg PO DAILY 05/28/18 Cranberry Fruit Extract [Cranberry] 250 mg PO DAILY 05/28/18 Green Tea [place] Extract [Green Tea 150 mg PO DAILY 05/28/18 Extract] L.acidoph,Paracasei, B.lactis 1 each PO PRN PRN 05/28/18 [Probiotic] Melatonin/Pyridoxine [Melatonin 5 5 mg PO QHS 05/28/18 mg Tablet] Multivitamin [Daily Multiple 1 tab PO DAILY 05/28/18 Vitamin] [place]-3 Fatty Acids/Fish Oil [Fish 1,000 mg PO DAILY 05/28/18 Oil 1,000 mg Capsule] Tamsulosin HCl [Flomax] 0.4 mg PO DAILY 05/28/18 Tyrosine [l-Tyrosine] 500 mg PO DAILY 05/28/18 Ubidecarenone [Co Q-10] 100 mg PO DAILY 05/28/18 Atorvastatin Calcium 40 mg PO QHS #30 tablet 05/29/18 Surgical History: no surgical history Psychiatric History: No pertinent psych hx Lives: Spouse/ Significant Other Smoking Status: Current every day smoker Tobacco Use: Vapor, - Alcohol: None Drugs: None - *Family History Maternal History Items: Stroke, - - Multiple myeloma. Paternal History Items: Hypertension Review of Systems Constitutional: Denies: Chills, Fever, Weight Change HEENT: Denies: Head Aches, Sinus Congestion, Sinus Drainage Cardiovascular: Denies: Chest Pain, Palpitations Respiratory: Denies: Cough, Shortness of breath at rest, Sputum production Gastrointestinal: Denies: Abdominal Pain, Nausea, Vomiting Genitourinary: Denies: Dysuria Musculoskeletal: Denies: Joint Pain, Joint Tenderness Skin: Denies: Rash, Wounds Neurological: Denies: Numbness, Tingling, Focal weakness Psychiatric: Denies: Anxiety, Depression, Homicidal Ideations, Suicidal Ideations Hematologic/ Lymphatic: Denies: Easy Bruising, Easy Bleeding - Physical Exam General: Alert, Oriented x3, Cooperative HEENT: Atraumatic, PERRLA, EOMI, Normocephalic Musculoskeletal: No Tenderness to Palpation of Joints or Extremities Neurological: Cranial nerves II-XII grossly intact, Deep Tendon Reflexes 2+/4 and Symmetrical, Neuro grossly intact, Motor Exam 5/5 strength throughout, Muscle tone normal, Sensory exam intact to light touch and pain, Coordination normal, Gait narrow based and stable Psych/Mental Status: Normal Affect, Appropriate Vital Signs Temp Pulse Resp BP Pulse Ox 36.4 C L 76 18 149/92 H 97 05/29/18 08:29 05/29/18 11:32 05/29/18 08:29 05/29/18 08:29 05/29/18 08:29 Oxygen Delivery Method Room Air Weight: 93.077 kg Body Mass Index (BMI) 27.8 Finger Stick Blood Glucose 98 Intake and Output for Last 24 Hours 05/27/18 05/28/18 05/29/18 23:59 23:59 23:59 Intake Total 240 / 240 480 / 480 Balance 240 / 240 480 / 480 Laboratory Tests Past 24 Hrs 05/28/18 05/28/18 05/29/18 13:05 13:05 06:42 PT 11.9 INR 0.9 APTT 27.0 Sodium 142 Potassium 3.6 Chloride 108 H Carbon Dioxide 25.0 Anion Gap 9 BUN 17 Creatinine 1.28 Estim Creat Clear Calc 66.52 Est GFR (MDRD) Af Amer 73 Est GFR (MDRD) Non-Af 61 BUN/Creatinine Ratio 13.3 Glucose 96 Calcium 9.3 Troponin I < 0.015 Triglycerides 87 Cholesterol 240 H LDL Cholesterol 191 H VLDL Cholesterol 17 HDL Cholesterol 32 L Current Medications Acetaminophen 650 mg 05/28/18 14:58 Tylenol PO Q6H PRN PRN Fever, headache, pain Aspirin 81 mg 05/29/18 08:00 05/29/18 08:33 Aspirin, Baby PO 81 mg DAILY@0800 [facility] Administration Atorvastatin Calcium 80 mg 05/28/18 22:00 05/28/18 21:07 Lipitor PO 80 mg QHS MELECIO Administration Enoxaparin Sodium 40 mg 05/29/18 10:00 05/29/18 08:33 Lovenox SC 40 mg DAILY@1000 [facility] Administration Ondansetron HCl 4 mg 05/28/18 14:58 Zofran IV Q8H PRN PRN NAUSEA/VOMITING Sodium Chloride 5 - 30 ml 05/28/18 16:00 05/28/18 16:03 IV 10 ml UD PRN Administration SALINE FLUSH Tamsulosin HCl 0.4 mg 05/29/18 10:00 10/17/18 08:33 Flomax PO 0.4 mg DAILY MELECIO Administration mri, mra head/neck reviewed, normal echo normal Assessment/Plan mri negative small vessel infarct vs migraine equivalent plavix statin ok to dc if sinus on tele outpt psg (+ snoring, loud, witnessed apneas)
--- NOTE | 2018-05-29 13:51 | CON.PCM_ITS ---
Reason for Consult Date of Consultation: 05/29/18 History of Present Illness: The patient is a 62 year old M reports initially symptoms briefly on sunday, then again yesterday morning in right foot while walking, lasted for 2hrs, went home and took an asa, went to physicians office, sent to ED, reports still now right hand and foot abnormal sensations as well as right upper lip. describes symptoms as similar to lidocaine. no recent illness, or med changes. takes asa daily at home. 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 per admit h&p:The patient is a 62 year old M with past medical history as mentioned above presented to the emergency room because of right-sided numbness. His symptoms started 2 days ago with numbness around the right corner his mouth, right hand and right foot that lasted for about 15-30 minutes and resolved spontaneously. On that day, patient did not pay attention to those symptoms. Today, he went to work and he started having exact same symptoms with numbness on the right side of his face on the corner of the mouth as well as right hand and right foot and his symptoms today lasted for about couple of hours and he decided to come to the emergency room. He reported associated ringing in the right ear as well as some discomfort in the back of his neck. He denied blurred vision, slurred speech, focal arm or leg weakness. He denied chest pain or shortness of breath. He denied vertigo or ear symptoms except rig ht ear ringing which resolved. At this time, he mentioned that numbness in the right side is almost gone. In the emergency department, initial blood pressure was slightly elevated and improved. His NIH score was 0. His routine blood work was unremarkable. His EKG revealed normal sinus rhythm without evidence of cardiac arrhythmias or ischemic changes. His troponin was negative. Pro time and INR were normal. CT scan brain showed no acute findings. Patient is being admitted for right side paresthesia probably due to TIA for evaluation. Past Medical History Past Medical History (Chronic Problems): Chronic Problems (Last Updated 05/29/18 @ 13:59 by Jos Wong MD) Benign prostatic hyperplasia (Chronic) Medical History: Medical History (Last Updated 05/29/18 @ 13:59 by Jos Wong MD) Nephrolithiasis N20.0 Ulcerative colitis K51.90 Allergies Penicillins Allergy (Verified 05/28/18 12:19) Anaphylaxis Home Medications: Ambulatory Orders Medication Instructions Recorded Aspirin [Aspirin EC] 81 mg PO DAILY 05/28/18 Caffeine 200 mg PO DAILY 05/28/18 Cranberry Fruit Extract [Cranberry] 250 mg PO DAILY 05/28/18 Green Tea [place] Extract [Green Tea 150 mg PO DAILY 05/28/18 Extract] L.acidoph,Paracasei, B.lactis 1 each PO PRN PRN 05/28/18 [Probiotic] Melatonin/Pyridoxine [Melatonin 5 5 mg PO QHS 05/28/18 mg Tablet] Multivitamin [Daily Multiple 1 tab PO DAILY 05/28/18 Vitamin] [place]-3 Fatty Acids/Fish Oil [Fish 1,000 mg PO DAILY 05/28/18 Oil 1,000 mg Capsule] Tamsulosin HCl [Flomax] 0.4 mg PO DAILY 05/28/18 Tyrosine [l-Tyrosine] 500 mg PO DAILY 05/28/18 Ubidecarenone [Co Q-10] 100 mg PO DAILY 05/28/18 Atorvastatin Calcium 40 mg PO QHS #30 tablet 05/29/18 Surgical History: no surgical history Psychiatric History: No pertinent psych hx Lives: Spouse/ Significant Other Smoking Status: Current every day smoker Tobacco Use: Vapor, - Alcohol: None Drugs: None - *Family History Maternal History Items: Stroke, - - Multiple myeloma. Paternal History Items: Hypertension Review of Systems Constitutional: Denies: Chills, Fever, Weight Change HEENT: Denies: Head Aches, Sinus Congestion, Sinus Drainage Cardiovascular: Denies: Chest Pain, Palpitations Respiratory: Denies: Cough, Shortness of breath at rest, Sputum production Gastrointestinal: Denies: Abdominal Pain, Nausea, Vomiting Genitourinary: Denies: Dysuria Musculoskeletal: Denies: Joint Pain, Joint Tenderness Skin: Denies: Rash, Wounds Neurological: Denies: Numbness, Tingling, Focal weakness Psychiatric: Denies: Anxiety, Depression, Homicidal Ideations, Suicidal Ideations Hematologic/ Lymphatic: Denies: Easy Bruising, Easy Bleeding - Physical Exam General: Alert, Oriented x3, Cooperative HEENT: Atraumatic, PERRLA, EOMI, Normocephalic Musculoskeletal: No Tenderness to Palpation of Joints or Extremities Neurological: Cranial nerves II-XII grossly intact, Deep Tendon Reflexes 2+/4 and Symmetrical, Neuro grossly intact, Motor Exam 5/5 strength throughout, Muscle tone normal, Sensory exam intact to light touch and pain, Coordination normal, Gait narrow based and stable Psych/Mental Status: Normal Affect, Appropriate Vital Signs Temp Pulse Resp BP Pulse Ox 36.4 C L 76 18 149/92 H 97 05/29/18 08:29 05/29/18 11:32 05/29/18 08:29 05/29/18 08:29 05/29/18 08:29 Oxygen Delivery Method Room Air Weight: 93.077 kg Body Mass Index (BMI) 27.8 Finger Stick Blood Glucose 98 Intake and Output for Last 24 Hours 05/27/18 05/28/18 05/29/18 23:59 23:59 23:59 Intake Total 240 / 240 480 / 480 Balance 240 / 240 480 / 480 Laboratory Tests Past 24 Hrs 05/28/18 05/28/18 05/29/18 13:05 13:05 06:42 PT 11.9 INR 0.9 APTT 27.0 Sodium 142 Potassium 3.6 Chloride 108 H Carbon Dioxide 25.0 Anion Gap 9 BUN 17 Creatinine 1.28 Estim Creat Clear Calc 66.52 Est GFR (MDRD) Af Amer 73 Est GFR (MDRD) Non-Af 61 BUN/Creatinine Ratio 13.3 Glucose 96 Calcium 9.3 Troponin I < 0.015 Triglycerides 87 Cholesterol 240 H LDL Cholesterol 191 H VLDL Cholesterol 17 HDL Cholesterol 32 L Current Medications Acetaminophen 650 mg 05/28/18 14:58 Tylenol PO Q6H PRN PRN Fever, headache, pain Aspirin 81 mg 05/29/18 08:00 05/29/18 08:33 Aspirin, Baby PO 81 mg DAILY@0800 [facility] Administration Atorvastatin Calcium 80 mg 05/28/18 22:00 05/28/18 21:07 Lipitor PO 80 mg QHS MELECIO Administration Enoxaparin Sodium 40 mg 05/29/18 10:00 05/29/18 08:33 Lovenox SC 40 mg DAILY@1000 [facility] Administration Ondansetron HCl 4 mg 05/28/18 14:58 Zofran IV Q8H PRN PRN NAUSEA/VOMITING Sodium Chloride 5 - 30 ml 05/28/18 16:00 05/28/18 16:03 IV 10 ml UD PRN Administration SALINE FLUSH Tamsulosin HCl 0.4 mg 05/29/18 10:00 05/29/18 08:33 Flomax PO 0.4 mg DAILY MELECIO Administration mri, mra head/neck reviewed, normal echo normal Assessment/Plan mri negative small vessel infarct vs migraine equivalent plavix statin ok to dc if sinus on tele outpt psg (+ snoring, loud, witnessed apneas)
== END 2018-05-29 13:28 | disposition home or self-care (01) ==
LOC: ED 13:27 → PCU 14:44
PROVIDERS: Admitting Provider Hospitalist; Emergency Provider Emergency Medicine; Family Provider Family Medicine; PCP Family Medicine; Referring Provider Hospitalist; Visit Provider Internal Medicine
DX: R20.0 Anesthesia of skin (principal); N40.0 Benign prostatic hyperplasia without lower urinary tract symptoms; E78.5 Hyperlipidemia, unspecified; I08.3 Combined rheumatic disorders of mitral, aortic and tricuspid valves; R20.2 Paresthesia of skin; R29.700 NIHSS score 0; Z79.899 Other long term (current) drug therapy; K51.90 Ulcerative colitis, unspecified, without complications; F17.290 Nicotine dependence, other tobacco product, uncomplicated; Z23 Encounter for immunization; Z79.82 Long term (current) use of aspirin
CPT/HCPCS: 36415; 70450; 70544; 70549; 70551; 80048; 80061; 82962; 84484; 85025; 85610; 85730; 93005; 93306; 96360; 96361; 96372; 99218; 99283; 99406; A9585; Q9957; 90686; A4216; G0378

== ENCOUNTER → 2018-06-05 15:25 | Outpatient (CLI) | payer OTHER, SELFPAY ==
[2018-06-05 18:05] LABS: Absolute Lymphocyte Count 1.95 X10^3/ul (0.83-4.51); Absolute Neutrophil Count 4.7 X10^3/uL (2.0-7.7); Basophil# 0.03 X10^3/uL; Basophil% 0.4 % (0-1); Eosinophil# 0.17 X10^3/uL; Eosinophils% 2.2 % (0-5); Hematocrit 45.8 % (40-54); Hemoglobin 14.7 g/dl (13.0-16.5); Lymphocyte # 1.95 X10^3/ul (4.0); Lymphocyte % 25.7 % (19-41); Mean Corp Hgb Conc 32.1 g/gl (32-36); Mean Corpuscular Hgb 28.7 pg (27.0-32.0); Mean Corpuscular Volume 89.3 fL (80-94); Mean Platelet Vol. 9.5 fl (6.2-12.0); Monocyte# 0.74 X10^3/uL; Monocyte% 9.8 % (0-10); Neutrophil # 4.68 X10^3/uL (2.7-7.7); Neutrophil % 61.8 % (47-70); Platelet Count 254 K/mm3 (150-450); RBC Distribution Width CV 14.4 % (11.6-14.6); RBC Distribution Width SD 46.7 fl (35.1-43.9); Red Blood Count 5.13 M/mm3 (4.6-6.2); White Blood Count 7.6 K/mm3 (4.4-11.0)
[2018-06-05 18:06] LABS: ALB/GLOB Ratio 0.9 RATIO (0.9-2.4); AST(SGOT) 19 U/L (15-37); Alanine Aminotransfer ALT/SGPT 36 U/L (16-61); Albumin, Serum 3.7 g/dL (3.2-5.0); Alkaline Phosphatase 82 U/L (45-117); Anion Gap 9 (5-15); BUN 16 mg/dL (7-18); BUN/Creat Ratio 13.2 RATIO (10-20); Chloride 106 mmol/L (98-107); Creatinine, Serum 1.21 mg/dL (0.70-1.30); EST Glomerular Filtration Rate 65 mL/min (>60); Est Glom Filt Rate - Afr Amer 78 mL/min (>60); Globulin 3.9 g/dL (2.2-4.2); Glucose 79 mg/dL (74-106); Potassium 3.7 mmol/L (3.5-5.1); Protein, Total 7.6 g/dL (6.4-8.2); Sodium Level 140 mmol/L (136-145); Thyroid Stim Hormone (TSH) 0.34 uIU/mL (0.358-3.74)
[2018-06-05 18:11] LABS: POSITIVE COUNT NO; POSITIVE DIFFERENTIAL NO; POSITIVE MORPHOLOGY NO
[2018-06-05 18:24] LABS: Erythrocyte Sedimentation Rate 13 mm/hr (0-20)
[2018-06-07 04:14] LABS: Rapid Plasmin Reagin (RPR) NONREACTIVE (NONREACTIVE)
[2018-06-08 14:01] LABS: ANTINUCLEAR ANTIBODIES DIRECT Negative (Negative)
[2018-06-10 16:08] LABS: PROELU- Albumin, Urine 45.1 % (.); PROELU- Alpha-1-Globulin,Ur 2.3 % (.); PROELU- Alpha-2-Globulin,Ur 10.7 % (.); PROELU- Beta Globulin, Ur 23.6 % (.); PROELU- Gamma Globulin, Ur 18.2 % (.); Total Protein, Ur 11.9 mg/dL (Not Estab.)
[2018-06-10 20:07] LABS: Lyme IgG P18 Ab Absent (.); Lyme IgG P23 Ab Present (.); Lyme IgG P28 Ab Absent (.); Lyme IgG P30 Ab Absent (.); Lyme IgG P39 Ab Absent (.); Lyme IgG P41 Ab Present (.); Lyme IgG P45 Ab Absent (.); Lyme IgG P58 Ab Absent (.); Lyme IgG P66 Ab Absent (.); Lyme IgG P93 Ab Absent (.); Lyme IgM P23 Ab Absent (.); Lyme IgM P39 Ab Absent (.); Lyme IgM P41 Ab Absent (.); PROEL- A/G Ratio 1.1 (0.7-1.7); PROEL- Albumin 3.7 g/dL (2.9-4.4); PROEL- Alpha-1 Globulin 0.2 g/dL (0.0-0.4); PROEL- Alpha-2 Globulin 0.7 g/dL (0.4-1.0); PROEL- Beta Globulin 1.5 g/dL (0.7-1.3); PROEL- Gamma Globulin 1.1 g/dL (0.4-1.8); PROEL- Globulin, Total 3.5 g/dL (2.2-3.9); PROEL- TOTAL PROTEIN 7.2 g/dL (6.0-8.5)
[2018-06-11 10:42] LABS: Lyme IgG WB Interpretation Negative (.); Lyme IgM WB Interpretation Negative (.)
== END ==
PROVIDERS: Family Provider Family Medicine; PCP Family Medicine; Referring Provider Family Medicine; Visit Provider Family Medicine
DX: R29.818 Other symptoms and signs involving the nervous system (principal)
CPT/HCPCS: 36415; 80053; 84165; 84166; 84443; 85025; 85652; 86038; 86592; 86617

== ENCOUNTER 2018-07-04 22:12 | Emergency (ER) | payer OTHER, SELFPAY ==
[2018-07-04 22:12] VITALS: BP 100/66; BP 84/61; PULSE 109; PULSE 112; RESP 19; RESP 24; TEMP 35.5; O2SAT 100; BMI 27.8
--- NOTE | 2018-07-04 22:38 | EKG12_ITS ---
Test Reason : SYNCOPE Blood Pressure : / mmHG Vent. Rate : 109 BPM Atrial Rate : 109 BPM P-R Int : 136 ms QRS Dur : 076 ms QT Int : 330 ms P-R-T Axes : 015 -13 036 degrees QTc Int : 444 ms Sinus tachycardia Otherwise normal ECG Confirmed by BRIAN ELIZABETH, LUCAS ([id number]), electronic news gathering editor TIMOTHY HINTON ([id number]) on 07/08/2018 9:38:01 AM Referred By: NORMA Confirmed By:LUCAS TORRES MD
--- NOTE | 2018-07-04 22:39 | CT_ITS ---
STUDY: CT CERVICAL SPINE WITHOUT CONTRAST REASON FOR EXAM: Male, 62 years old. Trauma. RADIATION DOSAGE (If Supplied By Facility): CTDIvol = ( 13.60 ) mGy, DLP = ( 288.10 ) mGycm TECHNIQUE: High resolution transaxial imaging was performed without contrast material. Sagittal and coronal images were reconstructed. Individualized dose optimization techniques were used for this CT. COMPARISON: None FINDINGS: Normal craniovertebral junction. There are degenerative changes of the anterior atlantoaxial articulation. Normal odontoid process. There is straightening of the normal cervical lordosis. Normal vertebral bodies and posterior osseous elements. C2-3: Normal endplates. Normal disc height and morphology. There is facet and uncovertebral joint degenerative change. Normal central canal and intervertebral neuroforamina. C3-4: Normal endplates. Normal disc height and morphology. There is facet and uncovertebral joint degenerative change. Normal central canal and intervertebral neuroforamina. C4-5: There is loss of disc height with endplate spondylosis. There is facet and uncovertebral joint degenerative change.. Normal central canal there is mild narrowing of the right intervertebral neuroforamen. C5-6: There is loss of disc height with endplate spondylosis. There is facet and uncovertebral joint degenerative change. Normal central canal. There is narrowing of the bilateral intervertebral neuroforamina. C6-7: There is loss of disc height with endplate spondylosis. There is facet and uncovertebral joint degenerative change. Normal central canal. There is narrowing of the bilateral intervertebral neuroforamina. C7-T1: Normal endplates. Normal disc height and morphology. Normal central canal and intervertebral neuroforamina. There is a prominent left thyroid lobe which extends substernally. It contains multiple coarse calcifications and displaces the trachea to the right. CT/Spine Cervical without Contras IMPRESSION: 1. Degenerative changes cervical spine without visualized fracture or subluxation. 2. Enlarged left thyroid lobe Electronically Signed: Parveen Washington DO at 23:42 EST Tel [phone], Service support ,
--- NOTE | 2018-07-04 22:39 | CT_ITS ---
STUDY: CT BRAIN WITHOUT CONTRAST REASON FOR EXAM: Male, 62 years old. Trauma. Facial lacerations. RADIATION DOSAGE (If Supplied By Facility): CTDIvol = ( 44.99 ) mGy, DLP = ( 863.60 ) mGycm TECHNIQUE: Transaxial CT imaging of the brain was performed without administration of intravenous contrast material. Individualized dose optimization techniques were used for this CT. COMPARISON: May 28, 2018. FINDINGS: Normal soft tissue structures. Normal calvarium. Normal size ventricles and extra-axial spaces for the patient's age. Normal white matter tracts of the cerebral hemispheres. Normal basal ganglia and thalami. Normal brainstem. Normal cerebellum. There is no intracranial hemorrhage. There are no findings of an acute ischemic infarction. Normal visualized paranasal sinuses. CT/Brain/Head without Contrast IMPRESSION: Acute intracranial or calvarial abnormality or major interval change. Electronically Signed: Parveen Washington DO at 23:43 EST Tel [phone], Service support ,
--- NOTE | 2018-07-04 22:41 | ED.VISSUMM ---
- ER Visit Summary Date of Service: 07/04/18 Chief Complaint: syncopal episode and lower GI bleed History of Present Illness: The patient is a 62 M with history of ulcerative colitis who presents for syncopal episode and GI bleed. Patient states he has been having dark tarry bloody stools for the last 2 days. This evening his heard him fall in the basement. She found him unresponsive on the basement floor. She states he was doing agonal breathing, and described as gasping. She performed chest compressions on him. He was moving unresponsive when EMS arrived. Patient is denying any headache or neck pain at this time. He denies any chest pain, shortness of breath, abdominal pain. He does state he has been having the bleeding. His last colonoscopy was over 10 years ago. He is on Plavix. Physical Examination: Vital signs: afebrile, hypotensive and tachycardic, no hypoxia on room air General: well nourished, well developed, in moderate distress Skin: warm, dry, pale, conjunctiva pallor and pallor of the palmar creases, superficial 0.5 cm lacerations to the mid forehead x2 HEENT: normocephalic and atraumatic; PERRL, EOMI, moist mucous membranes Cardiovascular: Tachycardic rate and rhythm without murmurs, no peripheral edema, 2+ pulses all distal extremities noted, no chest wall tenderness Respiratory: No increased work of breathing, lungs are clear to auscultation bilaterally, no rales, rhonchi or wheezing Abdominal: Abdomen is soft, nontender with normoactive bowel sounds, no guarding or rebound, no masses, large amount of coagulated dark purplish black blood in patient's underwear and around his rectum MSK: Moves all extremities, no deformities, normal strength, contusions noted to the left lateral proximal lower leg Neuro: Awake and alert, oriented ?4. No facial droop, sensation and motor function intact and symmetric Test Results: Abnormal Lab Results 07/04/18 07/04/18 07/04/18 23:07 23:07 23:07 WBC 15.5 H RBC 3.20 L Hgb 9.4 L Hct 29.1 L MCV 90.9 MCH 29.4 MCHC 32.3 RDW 14.2 RDW Differential 46.0 H Plt Count 285 MPV 10.1 Immature Gran % (Auto) 0.300 Neut % (Auto) 80.9 H Lymph % (Auto) 12.8 L [place] % (Auto) 5.3 Eos % (Auto) 0.6 Baso % (Auto) 0.1 Absolute Neuts (auto) 12.6 H Absolute Lymphs (auto) 1.99 Total Counted Not Reportable Sodium 139 Potassium 5.0 Chloride 116 H Carbon Dioxide 17.0 L Anion Gap 6 BUN 41 H Creatinine 1.26 Estim Creat Clear Calc 65.57 Est GFR (MDRD) Af Amer 75 Est GFR (MDRD) Non-Af 62 BUN/Creatinine Ratio 32.5 H Glucose 149 H Lactic Acid 1.8 Calcium 7.6 L Total Bilirubin 0.50 AST 26 ALT 24 Alkaline Phosphatase 55 Troponin I < 0.015 Total Protein 5.5 L Albumin 2.7 L Globulin 2.8 Albumin/Globulin Ratio 1.0 Crossmatch 07/04/18 23:07 WBC RBC Hgb Hct MCV MCH MCHC RDW RDW Differential Plt Count MPV Immature Gran % (Auto) Neut % (Auto) Lymph % (Auto) [place] % (Auto) Eos % (Auto) Baso % (Auto) Absolute Neuts (auto) Absolute Lymphs (auto) Total Counted Sodium Potassium Chloride Carbon Dioxide Anion Gap BUN Creatinine Estim Creat Clear Calc Est GFR (MDRD) Af Amer Est GFR (MDRD) Non-Af BUN/Creatinine Ratio Glucose Lactic Acid Calcium Total Bilirubin AST ALT Alkaline Phosphatase Troponin I Total Protein Albumin Globulin Albumin/Globulin Ratio Crossmatch See Detail Clinical Impression(s) from Imaging Studies Brain CT 07/04/18 22:39 There is no intracranial hemorrhage. There are no findings of an acute ischemic infarction. Electronically Signed: Parveen Washington DO at 23:43 EST Tel [phone], Service support , Cervical Spine CT 07/04/18 22:39 IMPRESSION: 1. Degenerative changes cervical spine without visualized fracture or subluxation. 2. Enlarged left thyroid lobe Medications Given Sodium Chloride () 1,000 mls @ 999 mls/hr IV .Q1H1M ONE Stop: 07/05/18 00:21 Last Admin: 07/04/18 23:30 Dose: 999 mls/hr Discontinued Medications Pantoprazole Sodium 80 mg/ (Sodium Chloride) 35 mls @ 420 mls/hr IV BOLUS X1 ONE Stop: 07/04/18 22:44 Last Admin: 07/04/18 23:40 Dose: 420 mls/hr Emergency Department Course and Treatment: Patient presents after a syncopal episode with symptomatic lower GI bleeding for 2 days. Syncope is most likely due to patient's lower GI bleeding. Patient has small superficial forehead lacerations that will not require suturing. Head CT showed no intracranial hemorrhage. C-spine CT showed no fractures. Patient was given 2 units of uncrossed matched blood due to hemodynamic instability in the setting of a brisk symptomatic lower GI bleed. Hemoglobin is 9.4, which likely does not reflect the true hemoglobin after the large amount of blood loss at the time of patient's initial evaluation. Patient was discussed with [facility] Dr. Melgar for transfer to the ICU at [facility] for emergent intervention of symptomatic lower GI bleed with hemodynamic instability. Patient was awake and alert with no focal neuro deficits during his ED course. Treatment Plan: [] Disposition: [] Impression: Lower GI bleed, syncopal episode, hemodynamic instability, superficial forehead lacerations This note was generated with [employer] dictation software. It may contain incorrect words, spelling, and punctuation that were not noted in review of the chart prior to signing ED Disposition - Plan for ED Patient: Chief Complaint: Syncope Referrals: Erwin Bae MD [Primary Care Provider] -
--- NOTE | 2018-07-04 22:44 | ED.DCSUM_ITS ---
- ER Visit Summary Date of Service: 07/04/18 Chief Complaint: syncopal episode and lower GI bleed History of Present Illness: The patient is a 62 M with history of ulcerative colitis who presents for syncopal episode and GI bleed. Patient states he has been having dark tarry bloody stools for the last 2 days. This evening his heard him fall in the basement. She found him unresponsive on the basement floor. She states he was doing agonal breathing, and described as gasping. She performed chest compressions on him. He was moving unresponsive when EMS arrived. Patient is denying any headache or neck pain at this time. He denies any chest pain, shortness of breath, abdominal pain. He does state he has been having the bleeding. His last colonoscopy was over 10 years ago. He is on Plavix. Physical Examination: Vital signs: afebrile, hypotensive and tachycardic, no hypoxia on room air General: well nourished, well developed, in moderate distress Skin: warm, dry, pale, conjunctiva pallor and pallor of the palmar creases, superficial 0.5 cm lacerations to the mid forehead x2 HEENT: normocephalic and atraumatic; PERRL, EOMI, moist mucous membranes Cardiovascular: Tachycardic rate and rhythm without murmurs, no peripheral edema, 2+ pulses all distal extremities noted, no chest wall tenderness Respiratory: No increased work of breathing, lungs are clear to auscultation bilaterally, no rales, rhonchi or wheezing Abdominal: Abdomen is soft, nontender with normoactive bowel sounds, no guarding or rebound, no masses, large amount of coagulated dark purplish black blood in patient's underwear and around his rectum MSK: Moves all extremities, no deformities, normal strength, contusions noted to the left lateral proximal lower leg Neuro: Awake and alert, oriented ?4. No facial droop, sensation and motor function intact and symmetric Test Results: Abnormal Lab Results 07/04/18 07/04/18 07/04/18 23:07 23:07 23:07 WBC 15.5 H RBC 3.20 L Hgb 9.4 L Hct 29.1 L MCV 90.9 MCH 29.4 MCHC 32.3 RDW 14.2 RDW Differential 46.0 H Plt Count 285 MPV 10.1 Immature Gran % (Auto) 0.300 Neut % (Auto) 80.9 H Lymph % (Auto) 12.8 L [place] % (Auto) 5.3 Eos % (Auto) 0.6 Baso % (Auto) 0.1 Absolute Neuts (auto) 12.6 H Absolute Lymphs (auto) 1.99 Total Counted Not Reportable Sodium 139 Potassium 5.0 Chloride 116 H Carbon Dioxide 17.0 L Anion Gap 6 BUN 41 H Creatinine 1.26 Estim Creat Clear Calc 65.57 Est GFR (MDRD) Af Amer 75 Est GFR (MDRD) Non-Af 62 BUN/Creatinine Ratio 32.5 H Glucose 149 H Lactic Acid 1.8 Calcium 7.6 L Total Bilirubin 0.50 AST 26 ALT 24 Alkaline Phosphatase 55 Troponin I < 0.015 Total Protein 5.5 L Albumin 2.7 L Globulin 2.8 Albumin/Globulin Ratio 1.0 Crossmatch 07/04/18 23:07 WBC RBC Hgb Hct MCV MCH MCHC RDW RDW Differential Plt Count MPV Immature Gran % (Auto) Neut % (Auto) Lymph % (Auto) [place] % (Auto) Eos % (Auto) Baso % (Auto) Absolute Neuts (auto) Absolute Lymphs (auto) Total Counted Sodium Potassium Chloride Carbon Dioxide Anion Gap BUN Creatinine Estim Creat Clear Calc Est GFR (MDRD) Af Amer Est GFR (MDRD) Non-Af BUN/Creatinine Ratio Glucose Lactic Acid Calcium Total Bilirubin AST ALT Alkaline Phosphatase Troponin I Total Protein Albumin Globulin Albumin/Globulin Ratio Crossmatch See Detail Clinical Impression(s) from Imaging Studies Brain CT 07/04/18 22:39 There is no intracranial hemorrhage. There are no findings of an acute ischemic infarction. Electronically Signed: Parveen Washington DO at 23:43 EST Tel [phone], Service support , Cervical Spine CT 07/04/18 22:39 IMPRESSION: 1. Degenerative changes cervical spine without visualized fracture or subluxation. 2. Enlarged left thyroid lobe Medications Given Sodium Chloride () 1,000 mls @ 999 mls/hr IV .Q1H1M ONE Stop: 07/05/18 00:21 Last Admin: 07/04/18 23:30 Dose: 999 mls/hr Discontinued Medications Pantoprazole Sodium 80 mg/ (Sodium Chloride) 35 mls @ 420 mls/hr IV BOLUS X1 ONE Stop: 07/04/18 22:44 Last Admin: 07/04/18 23:40 Dose: 420 mls/hr Emergency Department Course and Treatment: Patient presents after a syncopal episode with symptomatic lower GI bleeding for 2 days. Syncope is most likely due to patient's lower GI bleeding. Patient has small superficial forehead lacerations that will not require suturing. Head CT showed no intracranial hemorrhage. C-spine CT showed no fractures. Patient was given 2 units of uncrossed matched blood due to hemodynamic instability in the setting of a brisk symptomatic lower GI bleed. Hemoglobin is 9.4, which likely does not reflect the true hemoglobin after the large amount of blood loss at the time of patient's initial evaluation. Patient was discussed with [facility] Dr. Melgar for transfer to the ICU at [facility] for emergent intervention of symptomatic lower GI bleed with hemodynamic instability. Patient was awake and alert with no focal neuro deficits during his ED course. Treatment Plan: [] Disposition: [] Impression: Lower GI bleed, syncopal episode, hemodynamic instability, superficial forehead lacerations This note was generated with [facility] dictation software. It may contain incorrect words, spelling, and punctuation that were not noted in review of the chart prior to signing ED Disposition - Plan for ED Patient: Chief Complaint: Syncope Referrals: Erwin Bae MD [Primary Care Provider] -
[2018-07-04 23:10] VITALS: BP 81/69; PULSE 94; RESP 14; TEMP 36.4; O2SAT 100
[2018-07-04 23:26] LABS: Absolute Lymphocyte Count 1.99 X10^3/ul (0.83-4.51); Absolute Neutrophil Count 12.6 X10^3/uL (2.0-7.7); Basophil# 0.02 X10^3/uL; Basophil% 0.1 % (0-1); Eosinophil# 0.09 X10^3/uL; Eosinophils% 0.6 % (0-5); Hematocrit 29.1 % (40-54); Hemoglobin 9.4 g/dl (13.0-16.5); Lymphocyte # 1.99 X10^3/ul (4.0); Lymphocyte % 12.8 % (19-41); Mean Corp Hgb Conc 32.3 g/gl (32-36); Mean Corpuscular Hgb 29.4 pg (27.0-32.0); Mean Corpuscular Volume 90.9 fL (80-94); Mean Platelet Vol. 10.1 fl (6.2-12.0); Monocyte# 0.82 X10^3/uL; Monocyte% 5.3 % (0-10); Neutrophil # 12.57 X10^3/uL (2.7-7.7); Neutrophil % 80.9 % (47-70); Platelet Count 285 K/mm3 (150-450); RBC Distribution Width CV 14.2 % (11.6-14.6); White Blood Count 15.5 K/mm3 (4.4-11.0)
[2018-07-04 23:27] LABS: POSITIVE COUNT NO; POSITIVE DIFFERENTIAL NO; POSITIVE MORPHOLOGY NO
--- NOTE | 2018-07-04 23:28 | NURSING ---
ACCEPTED TO [place] [id number] ROOM NUMBER [phone] REPORT
[2018-07-04] MEDS: 0.9% Normal Saline 1,000 ML 999 ML IV (23:30)
[2018-07-04 23:40] LABS: AST(SGOT) 26 U/L (15-37); Alanine Aminotransfer ALT/SGPT 24 U/L (16-61); Albumin, Serum 2.7 g/dL (3.2-5.0); Alkaline Phosphatase 55 U/L (45-117); Anion Gap 6 (5-15); BUN 41 mg/dL (7-18); BUN/Creat Ratio 32.5 RATIO (10-20); Calcium,Total 7.6 mg/dL (8.5-10.1); Chloride 116 mmol/L (98-107); Creatinine, Serum 1.26 mg/dL (0.70-1.30); EST Glomerular Filtration Rate 62 mL/min (>60); Est Glom Filt Rate - Afr Amer 75 mL/min (>60); Estimated Creatinine Clearance 65.57 ml/min; Globulin 2.8 g/dL (2.2-4.2); Glucose 149 mg/dL (74-106); Lactic Acid 1.8 mmol/L (0.4-2.0); Protein, Total 5.5 g/dL (6.4-8.2); Sodium Level 139 mmol/L (136-145)
[2018-07-04 23:41] VITALS: BP 112/70; PULSE 107; RESP 16; TEMP 36.3; O2SAT 100
--- NOTE | 2018-07-04 23:45 | NURSING ---
[facility]
[2018-07-04 23:56] VITALS: BP 118/69; PULSE 104; RESP 16; TEMP 36.3; O2SAT 100
[2018-07-05] VITALS (8 sets, daily range): BP systolic 100–118; BP diastolic 66–82; PULSE 94–109; RESP 13–22; TEMP 36.3–36.4; O2SAT 99–100
[2018-07-05 00:08] LABS: International Normalized Ratio 1.2; Partial Thromboplast Time 23.1 Seconds (24.1-36.2); Prothrombin Time (Protime)PT. 14.7 SECONDS (11.7-14.9)
--- NOTE | 2018-07-05 01:41 | ED.RN ---
pt second unit of blood transfusing on transfer. when pt left ed, blood transfused 200ml, with 200ml left to transfuse. vs stable.
== END 2018-07-05 01:42 | disposition short-term general hospital (02) ==
LOC: ED 23:06
PROVIDERS: Emergency Provider Emergency Medicine; Family Provider Family Medicine; PCP Family Medicine
DX: K92.2 Gastrointestinal hemorrhage, unspecified (principal); R55 Syncope and collapse; R09.89 Other specified symptoms and signs involving the circulatory and respiratory systems; S01.81XA Laceration without foreign body of other part of head, initial encounter; W19.XXXA Unspecified fall, initial encounter; Y93.9 Activity, unspecified; Y92.9 Unspecified place or not applicable; E04.9 Nontoxic goiter, unspecified; K51.90 Ulcerative colitis, unspecified, without complications; Z79.02 Long term (current) use of antithrombotics/antiplatelets; Z79.899 Other long term (current) drug therapy
CPT/HCPCS: 70450; 72125; 80053; 83605; 84484; 85025; 85610; 85730; 86850; 86900; 86920; 93005; 96374; 99285; J7030; J7040; P9016; A4216; J3490

== ENCOUNTER → 2018-07-15 11:11 | Outpatient (CLI) | payer OTHER, SELFPAY ==
[2018-07-04 22:12] VITALS: BMI 27.8
[2018-07-15 12:32] LABS: Absolute Lymphocyte Count 1.25 X10^3/ul (0.83-4.51); Basophil# 0.03 X10^3/uL; Basophil% 0.4 % (0-1); Eosinophil# 0.28 X10^3/uL; Eosinophils% 3.4 % (0-5); Hemoglobin 9.5 g/dl (13.0-16.5); Lymphocyte # 1.25 X10^3/ul (4.0); Lymphocyte % 15.2 % (19-41); Mean Corp Hgb Conc 31.7 g/gl (32-36); Mean Corpuscular Hgb 29.1 pg (27.0-32.0); Mean Platelet Vol. 8.8 fl (6.2-12.0); Monocyte% 8.5 % (0-10); Neutrophil # 5.95 X10^3/uL (2.7-7.7); Neutrophil % 72.4 % (47-70); Platelet Count 430 K/mm3 (150-450); RBC Distribution Width CV 15.4 % (11.6-14.6); RET-HE 23.3 pg (30-35); Red Blood Count 3.26 M/mm3 (4.6-6.2); Reticulocyte Count 4.62 % (0.5-1.5); White Blood Count 8.2 K/mm3 (4.4-11.0)
[2018-07-15 12:37] LABS: POSITIVE COUNT NO; POSITIVE DIFFERENTIAL NO; POSITIVE MORPHOLOGY NO
[2018-07-15 13:06] LABS: ALB/GLOB Ratio 0.7 RATIO (0.9-2.4); AST(SGOT) 23 U/L (15-37); Alanine Aminotransfer ALT/SGPT 37 U/L (16-61); Albumin, Serum 2.7 g/dL (3.2-5.0); Alkaline Phosphatase 95 U/L (45-117); Anion Gap 9 (5-15); BUN 17 mg/dL (7-18); Calcium,Total 8.2 mg/dL (8.5-10.1); Chloride 110 mmol/L (98-107); Creatinine, Serum 1.13 mg/dL (0.70-1.30); EST Glomerular Filtration Rate 70 mL/min (>60); Est Glom Filt Rate - Afr Amer 85 mL/min (>60); Ferritin 66 ng/mL (26-388); Globulin 3.9 g/dL (2.2-4.2); Glucose 90 mg/dL (74-106); Protein, Total 6.6 g/dL (6.4-8.2); Sodium Level 144 mmol/L (136-145)
--- OUTSIDE RECORDS SUMMARY | 2018-09-07 17:06 | XMS RPT_ITS ---
:1955 Author Organization OHIP Care Team Providers Name Role Phone Bae, Erwin Primary Care Unavailable Ashelfah, Ghasem Admitting Unavailable Ashelfah, Ghasem Referring Unavailable Paintsil, Wagener Attending Unavailable Jos Wong Consulting Unavailable Ashelfah, Ghasem Admitting Unavailable Ashelfah, Ghasem Attending Unavailable Ashelfah, Ghasem Referring Unavailable Bae, Erwin Primary Care Unavailable Ashelfah, Ghasem Consulting Unavailable Ashelfah, Ghasem Admitting Unavailable Blank Lloyd NP-Apolinar Attending Unavailable Ashelfah, Ghasem Referring Unavailable Bae, Erwin Primary Care Unavailable Jos Wong Consulting Unavailable Paintsil, Wagener Consulting Unavailable Bae, Erwin Attending Unavailable Bae, Erwin Referring Unavailable Bae, Erwin Primary Care Unavailable Gordy Perdomo Attending Unavailable Ashelfah, Ghasem Referring Unavailable Bae, Erwin Primary Care Unavailable Hortensia De Oliveira Attending Unavailable Bae, Erwin Attending Unavailable Bae, Erwin Referring Unavailable Bae, Erwin Primary Care Unavailable Bae, Erwin Attending Unavailable Bae, Erwin Referring Unavailable Bae, Erwin Primary Care Unavailable RIC MELGAR Admitting Unavailable JUNAID HACKETT Attending Unavailable REFUGIO GOODMAN JR Consulting Unavailable RIC MELGAR Admitting Unavailable MD LEW AB Attending Unavailable TOM MAGALLANES) Consulting Unavailable DIEGO FOWLER Consulting Unavailable NAYELY PLASCENCIA Consulting Unavailable REFUGIO GOODMAN Consulting Unavailable PROBLEMS PROBLEMS DATE TYPE CONDITION / CODE ATTENDING STATUS SOURCE 07/11/2018 Active Melena / ALSHURBAJI, Active K92.1(ICD-10) [facility] Other [place] Repository 07/11/2018 Active Hemorrhage of ALSRBAJI, Active anus and rectum [facility] Other [place] / K62.5(ICD-10) Repository 07/05/2018 Active Syncope and ALSHURBAJI, Active collapse / [facility] Other [place] R55(ICD-10) Repository 07/11/2018 Admitting Unknown / MD LEW Active [place] [facility] diagnosis UNK(Unknown) [facility] Repository 06/05/2018 Unknown R29.818 - Other Erwin Bae Active [place] symptoms and Community signs involving Hospital the nervous Repository system / R29.818(ICD-10) PROCEDURES PROCEDURES No Procedure Records FoundRESULTS RESULTS THYROID Observed: 07/23/2018 Status: F Source: [place] 2:53 PM [facility] REPOSITORY [facility] Imaging Services [address] [place] [address] Thyroid MR#: [id number] Acct: [id number] Name: FRANCISCA VELASQUEZ Rep #: [id number] : 1955 M 63 From: Chacho Morse PCP: Erwin Bae MD Status: REG CLI Study: Thyroid Date of Exam: 07/23/18 Exam# [id number] Ordering Dr: Erwin Bae MD STUDY: THYROID ULTRASOUND REASON FOR EXAM: Male, 63 years old. Enlarged thyroid gland. TECHNIQUE: Ultrasound evaluation of the thyroid was performed with real-time and static [place]-scale imaging. COMPARISON: CT cervical spine 07/04/2018. FINDINGS: RIGHT LOBE: The right lobe of the thyroid gland is enlarged and measures 7.3 x 2.5 x 2.5 cm. There is a heterogeneous echotexture. Multiple nodules, midpole solid measuring 2.3 x 1.5 x 1.9 cm, inferior pole solid measuring 2.1 x 2.0 x 1.8 cm, inferior pole cystic measuring 0.7 x 0.7 x 0.6 cm, with peripheral wall calcification, and superior pole complex solid measuring 1.4 x 0.9 x 0.8 cm. LEFT LOBE: The left lobe of the thyroid gland is enlarged and measures 9.3 x 2.9 x 4.0 cm cm. There is a heterogeneous echotexture. Solid nodule inferior pole measuring 2.2 x 2.1 x 1.8 cm on the images provided there is a solid nodule superior pole measuring 2.3 x 1.5 x 2.1 cm. ISTHMUS: The isthmus measures 0.7 cm which is enlarged. Isthmic solid nodule measuring 1.7 x 1.4 x 1.1 cm. . The regional lymph nodes are normal. Increased vascularity in both lobes. US/Thyroid IMPRESSION: Significantly enlarged thyroid gland containing multiple primarily solid nodules the largest nodule in both lobes measuring 2.3 cm. Electronically Signed: Chacho Morse MD at 3:56 EST , Service support , CC: Erwin Bae MD Senior Portfolio Manager: Signed CBC W/DIFF, AUTOMATED Collected: 07/15/2018 Status: F Source: [place] 11:21 AM [facility] REPOSITORY TYPE CODE TESTS RESULT OUT OF RANGE REFERENCE UNITS LAB L100.1000 4.4-11.0 K/mm3 Normal WBC 8.2 LAB L100.1200 4.6-6.2 M/mm3 Low RBC 3.26 LAB L100.1300 13.0-16.5 g/dl Low HGB 9.5 LAB L100.1400 40-54 % Low HCT 30.0 LAB L100.1500 80-94 fL Normal MCV 92.0 LAB L100.1600 27.0-32.0 pg Normal MCH 29.1 LAB L100.1700 32-36 g/gl Low MCHC 31.7 LAB L100.1810 11.6-14.6 % High RDW CV 15.4 LAB L100.1820 35.1-43.9 fl High RDW SD 49.0 LAB L100.1900 150-450 K/mm3 Normal PLT 430 LAB L100.2000 6.2-12.0 fl Normal MPV 8.8 LAB L100.2100 47-70 % High NEUT% 72.4 LAB L100.2200 19-41 % Low LY% 15.2 LAB L100.2300 0-10 % Normal MONO% 8.5 LAB L100.2400 0-5 % Normal EO% 3.4 LAB L100.2500 0-1 % Normal BASO% 0.4 LAB L100.2550 0.0-0.9 % Normal IM GRAN % 0.100 Result Comment: IG% - Immature Granulocytes (promyelocytes, myelocytes and metamyelocytes) > 1% indicates that a LEFT SHIFT is Present. LAB L100.2620 2.0-7.7 X10 3/uL Normal Absolute Neut 6.0 LAB L100.2720 0.83-4.51 X10 3/ul Normal Absolute Lymph 1.25 Performed By: #### L100.0100, L100.9950 #### [facility] [address] [place], [place], [address] RETIC PANEL Collected: 07/15/2018 Status: F Source: [place] 11:21 AM [facility] REPOSITORY TYPE CODE TESTS RESULT OUT OF RANGE REFERENCE UNITS LAB L101.0000 0.5-1.5 % High RETIC 4.62 LAB L101.0060 3.00-15.90 % High IM RET FRACTION 18.20 LAB L101.0090 30-35 pg Low RET-HE 23.3 LAB L101.0110 1.0-7.9 % Normal IPF 1.0 Result Comment: Low PLT + Low IPF suggest a bone marrow production disorder Low PLT + high IPF suggests peripheral destruction (e.g.ITP, TTP, HIT, DIC, autoimmune) or bone marrow recovery Trending of serial IPF measurements is recommended when evaluating for bone marrow respones Value above normal range indicates an increase in RBC cellular response from bone marrow. Performed By: #### L100.0100, L100.9950 #### [facility] [address] [facility] [place], [address] COMPREHENSIVE METABOLIC Collected: 07/15/2018 Status: F Source: [facility] 11:21 AM [facility] REPOSITORY TYPE CODE TESTS RESULT OUT OF RANGE REFERENCE UNITS LAB L501.0100 74-106 mg/dL Normal GLU 90 Result Comment: Please note revised GLUCOSE reference range effective 2017. LAB L501.1000 7-18 mg/dL Normal BUN 17 LAB L501.1100 0.70-1.30 mg/dL Normal CREAT,SERUM 1.13 Result Comment: The validity of the calculated GFR AND GFRAA in patients over 70 years has not been determined. Clinical correlation is essential. LAB L501.1110 >60 mL/min Normal EST GFR 70 Result Comment: Non- GFR Calc LAB L501.1115 >60 mL/min Normal EST GFR - AA 85 Result Comment: GFR Calc LAB L501.1300 10-20 RATIO Normal BUN/CRE 15.0 LAB L501.1500 6.4-8.2 g/dL T Normal PROT 6.6 LAB L501.1800 3.2-5.0 g/dL Low ALB 2.7 LAB L501.1950 2.2-4.2 g/dL Normal GLOB 3.9 LAB L501.2000 0.9-2.4 RATIO Low A/G 0.7 LAB L501.2200 8.5-10.1 mg/dL Low CA 8.2 LAB L501.4100 15-37 U/L Normal AST 23 LAB L501.4305 45-117 U/L Normal ALK P 95 LAB L501.4405 16-61 U/L Normal ALT 37 LAB L501.4600 0.20-1.00 mg/dL T Normal BILI 0.70 LAB L501.5300 136-145 mmol/L NA Normal 144 LAB L501.5600 3.5-5.1 mmol/L K Normal 4.0 LAB L501.5900 98-107 mmol/L High CL 110 LAB L501.6100 21.0-32.0 mmol/L Normal CO2 25.0 LAB L501.6200 5-15 Normal GAP 9 Performed By: #### L500.4050, L503.6550 #### [facility] [address] [place], [address] FERRITIN Collected: 07/15/2018 Status: F Source: [place] 11:21 AM [facility] REPOSITORY TYPE CODE TESTS RESULT OUT OF RANGE REFERENCE UNITS LAB L503.6550 26-388 ng/mL Normal FERRITIN 66 Performed By: #### L500.4050, L503.6550 #### [facility] [address] [place], [address] 12 LEAD ELECTROCARDIOGRAM Observed: 07/12/2018 Status: F Source: [place] 9:21 AM [facility] REPOSITORY [facility] Cardiovascular Services [address] [place] [address] 12 Lead EKG 07/04/18 2221 MR#: [id number] Acct: [id number] Name: FRANCISCA VELASQUEZ Rep #: [id number] : 1955 62 From: Marc Gunn MD Attending Dr: Status: DEP ER Ordering Dr: Hortensia De Oliveira MD Date: 07/04/18 Location: ED Sex: M C Admitted: Test Reason : SYNCOPE Blood Pressure : / mmHG Vent. Rate : 109 BPM Atrial Rate : 109 BPM P-R Int : 136 ms QRS Dur : 076 ms QT Int : 330 ms P-R-T Axes : 015 -13 036 degrees QTc Int : 444 ms Sinus tachycardia Otherwise normal ECG Confirmed by MARC GUNN MD ([id number]), marketing editor TIMOTHY HINTON ([id number]) on 07/08/2018 9:38:01 AM Referred By: NORMA Confirmed By:MARC GUNN MD 07/08/18 0938 Date Marc Gunn MD CC: Erwin Bae MD; Hortensia De Oliveira MD Signed NURSING PROG Observed: 07/11/2018 Status: COMPLETED Source: [facility] 4:57 PM CLINIC OTHER [place] REPOSITORY HNO ID: [id number] Author: Helga MonteroRn) JUVE Law Service: (none) Author Type: Registered Nurse Type: Nursing Progress Note Filed: 07/11/2018 4:58 PM Note Text: Dr Hackett states to have patient start plavix tomorrow 07/12/2018 CNDS Observed: 07/11/2018 Status: COMPLETED Source: [place] [facility] 4:[address] [facility] OTHER [place] REPOSITORY HNO ID: [id number] Author: Junaid Hackett Service: Hospital Medicine Author Type: Physician Type: Discharge Summaries Filed: 07/11/2018 4:57 PM Note Text: DISCHARGE SUMMARY PATIENT NAME: Francisca Velasquez ADMISSION DATE: 07/05/2018 DISCHARGE DATE: 07/11/2018 ATTENDING PHYSICIAN: Junaid Hackett Code Status: Full Code Highest Readmission Risk Score: 11 The 30 day readmissions risk score is derived from an internally validated risk model which evaluates patient level characteristics, utilization history, medication orders and lab results up until the day of discharge. Patients with a score of 40 or above are considered highest risk for readmission. Specific patient level drivers will be listed at the bottom of the summary. REASON FOR HOSPITALIZATION: ACTIVE PROBLEM LIST Nicotine use disorder, F17.2 Manuela (Iron Deficiency Anemia) Hx of Transient Ischemic Attack (Tia) DIAGNOSIS: Principal Problem (Resolved): Melena Active Problems: Nicotine use disorder, F17.2 MANUELA (iron deficiency anemia) Hx of transient ischemic attack (TIA) Resolved Problems: GI bleed BRBPR (bright red blood per rectum) OPERATIONS DURING HOSPITALIZATION: None PROCEDURES DURING HOSPITALIZATION: see below HOSPITAL COURSE: Evaluated for multiple bouts of bloody bowel movements, lightheadedness and fall, recently added plavix to asa for what appears TIA- like symptoms, admitted to ICU, received multiple pRBCs, aspirin and plavix withheld on presentation, underwent EGD and colonoscopy which revealed old blood without identifiable source of active bleeding, capsule camera was inconclusive, NM bleeding scan is negative for acute bleeding as well, neurologist recommended resuming Plavix alone, engraver ornamental design recommended CT enterography if bleeding recurred again in the future, hemoglobin remained stable in the last 72 hrs prior to discharge, vital signs stable, ambulated without dizziness, felt safe to be discharged, return to ED and office precaution discussed, advised to check CBCand follow up with primary care physician in the next 4 days to assure stability, Transitions of Care Critical Issues: LABS AND PROCEDURES PENDING AT DISCHARGE: No pending results. CONSULTING TEAMS DURING HOSPITALIZATION: Neurologist, GI, critical care PATIENT CONDITION AT DISCHARGE: Stable DISCHARGE DISPOSITION: Home/Self Care Discharge Physical Exam: VITAL SIGNS: BP 126/60 Pulse 92 Temp 36.7 ?C (98.1 ?F) (Oral) Resp 16 Ht 180.3 cm (5' 10.98) Wt 93 kg (205 lb 0.4 oz) SpO2 94% BMI 28.61 kg/m? Physical Exam Performed GENERAL: Alert, no distress, cooperative SKIN: pale, no rahs HEAD/SINUSES: No significant findings EYES: PERRLA, EOMI NECK: No jugulovenous distention, Supple LUNGS: Lungs clear to auscultation, Good diaphragmatic excursion CARDIAC: RRR, tachycardic, no MRG ABDOMEN: Soft, nontender EXTREMITIES: No ulcers, no edema NEURO: Grossly normal cognition, motor function, and cranial nerves III-XII ? INFORMATION PROVIDED TO PATIENT: (To pull info documented from the DC Instruct Orderset Complete O/S First): return to ED and office precautions discussed, he verbalized understanding DIET: Resume pre-hospital diet ACTIVITY: Resume pre-hospital activity WOUND/SURGICAL SITE CARE: None ALLERGIES Allergen Reactions - Penicillin Anaphylaxis DISCHARGE MEDICATION: Current Discharge Medication List START taking these medications pantoprazole (PROTONIX) 40 mg Take 40 mg by mouth DAILY (6 AM). Qty: 30 tablet Refills: 2 CONTINUE these medications which have NOT CHANGED clopidogrel (PLAVIX) 75 mg Take 75 mg by mouth once daily. tamsulosin ER (FLOMAX) 0.4 mg Take 0.4 mg by mouth once daily. magnesium oxide (MAG-OX) 400 mg Take 400 mg by mouth twice daily. atorvastatin (LIPITOR) 40 mg Take 40 mg by mouth daily with dinner. STOP taking these medications aspirin 81 mg Comments: Reason for Stopping: FUTURE APPOINTMENTS: No future appointments. The patient's risk for 30-day readmission is determined using the following contributing factors: Pt variables contributing to increased readmission risk: 13 Most Recent BUN Result 7.3 First Resulted Calcium During Admission 4 Active Medication Orders 1 Insurance - Private Coverage 1 Discharge Disposition - Home 1 History of Anemia TIME OF CARE: Discharge Management: I personally spent greater than 30 minutes involved in the discharge management of this patient. SIGNATURE: Junaid Hackett MD PAGER/CONTACT #: DATE: July 11, 2018 CONSULT PROG Observed: 07/11/2018 Status: COMPLETED Source: [facility] 10:[address] [facility] OTHER CAMPUS REPOSITORY O ID: [id number] Author: Tom Magallanes Service: Gastroenterology Author Type: Physician Type: Consult Progress Note Filed: 07/11/2018 3:36 PM Note Text: Consult PROGRESS NOTE SERVICE DATE: 07/11/2018 SERVICE TIME: 10:04 AM Subjective INTERVAL HPI: Today the patient is doing well, he denied any hematemesis, melena or hematochezia. States that he have mild abdominal pain. Denied any nausea or vomiting. Well tolerating food. Current hospital medications: atorvastatin 40 mg tab(s) (LIPITOR) 40 mg ORAL DAILY wDINNER pantoprazole DR 40 mg tab(s) (PROTONIX) 40 mg ORAL DAILY (6 AM) ondansetron (PF) 4 mg injection (ZOFRAN) 4 mg INTRAVENOUS q 6 H PRN tamsulosin ER 0.4 mg cap(s) (FLOMAX) 0.4 mg ORAL DAILY Objective PHYSICAL EXAM: BP 126/60 Pulse 92 Temp (Src) 98.1 (Oral) Resp 16 Ht 5' 10.984 (1.80m) Wt 205 lb 0.4 oz (93.0kg) SpO2 94% BMI 28.61 kg/(m2). Physical Exam Performed GENERAL: Alert, no distress, cooperative NECK: No jugulovenous distention, No carotid bruits, Carotid pulse normal contour, Supple LUNGS: Lungs clear to auscultation, Good diaphragmatic excursion CARDIAC: Normal S1 and S2; no rubs, murmurs, or gallops ABDOMEN: Abdomen soft, non-tender, BS normal, No masses or organomegaly EXTREMITIES: Extremities normal, no deformities, edema, clubbing or skin discoloration. Good capillary refill., No ulcers NEURO: Gait normal. Reflexes normal and symmetric. Sensation grossly intact, Cranial nerves II-XII intact PULSES: 2+ radial, 2+ carotid DATA: Diagnostic tests reviewed for today's visit: Most recent labs and imaging results. Assessment/Plan A 63 YOM presented with GIB, s/p EGD on 07/05/18 (normal except 2-3cm sliding hiatus hernia), colonoscopy on 07/08 (moderate sigmoid diverticulosis, old blood and few clots throughout colon and TI but no actively bleeding lesion seen or stigmata of recent bleeding), had capsule endoscopy this morning which didn't show any source of bleeding. Hemodynamically stable, Hgb today 8.5, no more bleeding. ? ? Plan: -s/p capsule endoscopy Sunday night, no obvious source detected. Presumed to be diverticular bleed -Hgb is going up. No overt bleeding. -consider CT enterography if had GIB in the future. -Discharge on PO Protonix once daily. -GI will sign off, call for any questions. Medication and Non-Pharmacologic VTE Prophylaxis/Anticoagulants 07/05/18 0330 vte pharmacologic prophylaxis contraindicated (mi,sc) 07/05/18 033 pneumatic compression stockings (mi,sc) 07/05/18 0330 activity - mobilize patient ([place], [place]) VTE Prophylaxis: VTE prophylaxis appropriate I have seen and examined the patient independently and discussed the case with the trainee in detail. Pertinent history, labs, imaging, outside records, physical exam and interpretation reviewed. I agree with the assessment and plan as documented in the resident?s note with any further suggestions documented above. Tom Magallanes MD MPH [facility] SIGNATURE: Fuentes Milner MD PATIENT NAME: Francisca Velasquez DATE: July 11, 2018 TIME: 10:04 AM PAGER: [phone] GLUCOSE METER Collected: 07/11/2018 Status: F Source: [facility] 7:37 AM HEALTH SYSTEM REPOSITORY TYPE CODE TESTS RESULT OUT OF REFERENCE UNITS RANGE LAB GLUBL(LOINC 70-99 mg/dL ) High Glucose Meter 102 Result Comment: RN NOTIFIED Performed By: #### GLMET #### [facility] [address] [place], [place] [address] MDRD GFR Collected: 07/11/2018 Status: F Source: [facility] 5:37 AM HEALTH SYSTEM REPOSITORY TYPE CODE TESTS RESULT OUT OF RANGE REFERENCE UNITS LAB GFRFN(LOINC >60mL/min/1.73m ) 2 eGFR >60 Result Comment: If the patient is , multiply the result by 1.210. Performed By: #### GFR #### [facility] [address] [place] [address] HEMOGRAM/DIFF Collected: 07/11/2018 Status: F Source: [facility] 5:37 AM HEALTH SYSTEM REPOSITORY TYPE CODE TESTS RESULT OUT OF REFERENCE UNITS RANGE LAB WBC(LOINC) 4.23-9.07 thou/cmm WBC High 9.63 LAB RBC(LOINC) 4.63-6.08 mil/cmm Low RBC 2.92 LAB HGB(LOINC) 13.7-17.5 g/dL Low Hgb 9.0 LAB HCT(LOINC) 40.1-51.0 % Low Hct 27.0 LAB MCV(LOINC) 83.2-95.6 fl MCV 92.5 LAB MCH(LOINC) 25.7-32.2 pg MCH 30.8 LAB MCHC(LOINC 32.3-36.5 % ) MCHC 33.3 LAB RDW(LOINC) 11.6-14.4 % RDW High 16.5 LAB RDWSD(LOIN 36.1-45.8 fl C) RDW SD High 48.8 LAB PLT(LOINC) 141-365 thou/cmm Platelet 250 LAB MPV(LOINC) 8.7-12.0 fl MPV 9.6 LAB SEG(LOINC) % Seg Neutrophil 66.9 LAB IGRE(LOINC % ) Immature Grans 0.70 LAB LYMPH(LOIN % C) Lymphocyte 19.6 LAB MNO(LOINC) % Monocyte 8.9 LAB EOSIN(LOIN % C) Eosinophil 3.5 LAB BASO(LOINC % ) Basophil 0.4 LAB SEGN(LOINC 1.78-5.38 thou/cmm ) Abs. High Neut (ANC) 6.44 LAB IGAB(LOINC 0.00-0.05 thou/cmm ) Abs High Immature Grans 0.07 LAB LYMN(LOINC 0.84-2.85 thou/cmm ) Abs. Lymph 1.89 LAB MONON(LOIN 0.30-0.82 thou/cmm C) Abs. High [place] 0.86 LAB EOSN(LOINC 0.04-0.54 thou/cmm ) Abs. Eosin 0.34 LAB BASON(LOIN 0.01-0.08 thou/cmm C) Abs. Baso 0.04 Performed By: #### CBCD1 #### [place] [address] COMPREHENSIVE PANEL Collected: 07/11/2018 Status: F Source: [facility] 5:37 HEALTH SYSTEM REPOSITORY TYPE CODE TESTS RESULT OUT OF REFERENCE UNITS RANGE LAB NA(LOINC) 136-145 mEq/L Sodium Blood 141 LAB K(LOINC) 3.5-5.1 mEq/L Potassium Blood 3.6 LAB CL(LOINC) 98-107 mEq/L Chloride Blood 107 LAB CO2(LOINC) 21-32 mEq/L CO2 Blood 26 LAB GLU(LOINC) 70-99 mg/dL Glucose Blood 94 LAB BUN(LOINC) 7-18 mg/dL BUN Blood 13 LAB CREA(LOINC 0.67-1.17 mg/dL ) Creatinine Blood 1.06 LAB CA(LOINC) 8.5-10.1 mg/dL Low Calcium Blood 7.8 LAB ALB(LOINC) 3.4-5.0 g/dL Low Albumin Blood 2.3 LAB TP(LOINC) 6.4-8.2 g/dL Low Total Protein 5.4 LAB AST(LOINC) 9-37 U/L AST-SGOT Blood 36 LAB ALT(LOINC) 12-78 U/L ALT-SGPT Blood 48 LAB ALKP(LOINC 46-116 U/L ) Alk Phosphatase 78 LAB BILIT(LOIN 0.2-1.0 mg/dL C) Total Bilirubin 0.8 LAB ANGAP(LOIN 8-16 C) Anion Gap 12 Performed By: #### P14 #### [place] [address] LIPID PROFILE Collected: 07/11/2018 Status: F Source: [facility] 5:37 AM HEALTH SYSTEM REPOSITORY TYPE CODE TESTS RESULT OUT OF REFERENCE UNITS RANGE LAB CHOL(LOINC 0-199 mg/dL ) Cholesterol Blood 86 Result Comment: <200 Desirable 200-240 Borderline >240 High LAB TRIG(LOINC) 0-149 mg/dL Triglyceride Blood 55 Result Comment: < 200 Desirable Result invalid if not a fasting specimen. LAB HDL2(LOINC) >40 mg/dL HDL Cholesterol 31 LAB CHHDL(LOINC) 2.1-7.3 CHOL/HDL 2.8 LAB LDL(LOINC) mg/dL LDL (Calculated) 44 Result Comment: No CAD and with fewer than 2 CAD risk factors <160 mg/dL No CAD but with 2 or more CAD risk factors <130 mg/dL Definite CAD or other atherosclerotic disease <100 mg/dL LAB VLDL(LOINC) <50 Desired mg/dL VLDL Cholesterol 11 LAB LDHDL(LOINC) 1.1-4.8 LDL/HDL 1.4 Result Comment: LDL,VLDL,LDL/HDL, Invalid if Triglyceride >400 Performed By: #### LIPD2 #### [place] [address] HGB A1C Collected: 07/11/2018 Status: F Source: [facility] 5:37 AM HEALTH SYSTEM REPOSITORY TYPE CODE TESTS RESULT OUT OF RANGE REFERENCE UNITS LAB A1C5(LOINC) 4.2-6.3 % Hgb A1c 5.1 Result Comment: Method is National Glycohemoglobin Standardization Program (NGSP) compliant. LAB ESAVG(LOINC) mg/dl Est. Avg Glucose 100 Performed By: #### HA1C #### [place] [address] HGB Collected: 2018 Status: F Source: [facility] 4:20 PM HEALTH SYSTEM REPOSITORY TYPE CODE TESTS RESULT OUT OF RANGE REFERENCE UNITS LAB HGBI(LOINC) 13.7-17.5 g/dL Low Hgb 8.4 Performed By: #### HGBI #### [facility] [address] [place] [address] NURSING PROG Observed: 2018 Status: COMPLETED Source: [facility] 3:33 PM [facility] REPOSITORY HNO ID: [id number] Author: Abdoulaye (Rn) JUVE Cook Service: Nursing Author Type: Registered Nurse Type: Nursing Progress Note Filed: 2018 3:35 PM Note Text: Nursing Progress Note Patient Name: Francisca Velasquez Patient Location: [place] [address] [address]* Daily Note:Called report to [phone], Spoke to JUVE Singh. Answered all questions to best of RN ability. No new information to report at this time. Will update pt's (at bedside) and transfer pt after 4pm Hgb check. No other information to report at this time This note was completed by: Abdoulaye Cook RN CONSULT PROG Observed: 2018 Status: COMPLETED Source: [facility] 11:08 AM [facility] REPOSITORY HNO ID: [id number] Author: Tom Magallanes Service: Gastroenterology Author Type: Physician Type: Consult Progress Note Filed: 2018 6:19 PM Note Text: Consult progress note SERVICE DATE: 2018 SERVICE TIME: 11:10 AM Subjective INTERVAL HPI: Today the patient is doing well. Had capsule endoscopy this morning, well tolerated. He denied any abdominal pain, nausea or vomiting. The last time he moved his bowel was 2 days ago. Denied any dizziness or headache. Current hospital medications: atorvastatin 40 mg tab(s) (LIPITOR) 40 mg ORAL DAILY wDINNER pantoprazole DR 40 mg tab(s) (PROTONIX) 40 mg ORAL DAILY (6 AM) ondansetron (PF) 4 mg injection (ZOFRAN) 4 mg INTRAVENOUS q 6 H PRN tamsulosin ER 0.4 mg cap(s) (FLOMAX) 0.4 mg ORAL DAILY potassium chloride 80-120 mEq oral liquid 80-120 mEq ORAL/FEEDING TUBE PRN potassium chloride iv piggyback 20 mEq/100 mL 20 mEq INTRAVENOUS PRN magnesium sulfate in water 2 g in sterile water 50 ml 2 g INTRAVENOUS PRN sodium glycerophosphate 45 mmol in NaCl 0.9% 250 mL (GLYCOPHOS) 45 mmol INTRAVENOUS PRN calcium gluconate 4 g in NaCl 0.9% 250 mL 4 g INTRAVENOUS PRN Objective PHYSICAL EXAM: BP 127/64 Pulse 97 Temp (Src) 97.8 (Axillary) Resp 19 Ht 5' 10.984 (1.80m) Wt 204 lb 12.9 oz (92.9kg) SpO2 98% BMI 28.58 kg/(m2). Physical Exam Performed GENERAL: Alert, no distress, cooperative NECK: No jugulovenous distention, No carotid bruits, Carotid pulse normal contour, Supple LUNGS: Lungs clear to auscultation, Good diaphragmatic excursion CARDIAC: Normal S1 and S2; no rubs, murmurs, or gallops ABDOMEN: Abdomen soft, non-tender, BS normal, No masses or organomegaly EXTREMITIES: Extremities normal, no deformities, edema, clubbing or skin discoloration. Good capillary refill., No ulcers NEURO: Gait normal. Reflexes normal and symmetric. Sensation grossly intact, Cranial nerves II-XII intact PULSES: 2+ radial, 2+ carotid DATA: Diagnostic tests reviewed for today's visit: Most recent labs and imaging results. Assessment/Plan Assessment: A 63 YOM presented with GIB, s/p EGD on 07/05/18 (normal except 2-3cm sliding hiatus hernia), colonoscopy on 07/08 (moderate sigmoid diverticulosis, old blood and few clots throughout colon and TI but no actively bleeding lesion seen or stigmata of recent bleeding), had capsule endoscopy this morning which didn't show any source of bleeding. Hemodynamically stable, Hgb today 8.5, no more bleeding. Plan: -s/p capsule endoscopy today, no source detected -Hgb stable, if continue dropping will consider CT enterography -IV protonix -Keep monitoring HANDH -transfuse for Hgb < 7 Medication and Non-Pharmacologic VTE Prophylaxis/Anticoagulants 07/05/18 033 vte pharmacologic prophylaxis contraindicated (mi,oh) 07/05/18 033 pneumatic compression stockings (mi,sc) 07/05/18 033 activity - mobilize patient (mi,oh) VTE Prophylaxis: VTE prophylaxis appropriate I have seen and examined the patient independently and discussed the case with the trainee in detail. Pertinent history, labs, imaging, outside records, physical exam and interpretation reviewed. I agree with the assessment and plan as documented in the resident?s note with any further suggestions documented above. Tom Magallanes MD MPH [facility] SIGNATURE: Fuetnes Milner MD PATIENT NAME: Francisca Velasquez DATE: 2018 TIME: 11:10 AM PAGER: [phone] HGB Collected: 2018 Status: F Source: [facility] 10:20 AM HEALTH SYSTEM REPOSITORY TYPE CODE TESTS RESULT OUT OF RANGE REFERENCE UNITS LAB HGBI(LOINC) 13.7-17.5 g/dL Low Hgb 8.5 Performed By: #### HGBI #### [place] [address] CONSULT PROG Observed: 2018 Status: COMPLETED Source: [facility] 8:14 AM [facility] REPOSITORY HNO ID: [id number] Author: Tom Magallanes Service: Gastroenterology Author Type: Physician Type: Consult Progress Note Filed: 2018 8:18 AM Note Text: PillCam (capsule endoscopy) performed evening of July 08 after his colonoscopy. Please see full report for details. Brief summary below. Gastric passage time: 39 minutes Small bowel passage time: 4 hours 48 minutes There was slight holdup of the PillCam for about 1 hour 15 minutes somewhere in the mid jejunum. There were 2 areas of bright white nodules which may represent lipomas, in the proximal ileum. The rest of the small bowel study was normal. Recommendations: No cause for obscure overt GI bleed found. May consider CT enterography if bleeding persists, especially in light of abnormal holdup of the PillCam as noted above. Tom Magallanes MD MPH [facility] PROGRESS Observed: 2018 Status: COMPLETED Source: [facility] 8:13 AM [facility] REPOSITORY HNO ID: [id number] Author: Junaid Hackett Service: Hospital Medicine Author Type: Physician Type: Progress Notes Filed: 2018 5:22 PM Note Text: DEPARTMENT OF HOSPITAL MEDICINE PROGRESS NOTE Subjective INTERVAL HPI: admitted to ICU for massive GIB required multiple transfusion, EGD and colonoscopy without evidence of bleeding pt has no new complaints, up to chair, no major events overnight MEDICATIONS: Reviewed Objective PHYSICAL EXAM: BP 122/65 Pulse 101 Temp (Src) 98.1 (Axillary) Resp 21 Ht 5' 10.984 (1.80m) Wt 204 lb 12.9 oz (92.9kg) SpO2 98% BMI 28.58 kg/(m2). Physical Exam Performed GENERAL: Alert, no distress, cooperative SKIN: pale, no rahs HEAD/SINUSES: No significant findings EYES: PERRLA, EOMI NECK: No jugulovenous distention, Supple LUNGS: Lungs clear to auscultation, Good diaphragmatic excursion CARDIAC: RRR, tachycardic, no MRG ABDOMEN: Soft, nontender EXTREMITIES: No ulcers, no edema NEURO: Grossly normal cognition, motor function, and cranial nerves III-XII Lines, Drains, and Airways Line Peripheral 07/06/18 0000 Assessment Short Right Hand 20 Gauge 4 days Peripheral 07/07/18 0714 Short Left Forearm 20 Gauge 3 days Peripheral 07/09/18 0340 Left Arm 20 Gauge 1 day DATA: Diagnostic tests reviewed for today's visit: Most recent labs and imaging results. Assessment/Plan ? Acute blood loss anemia sec to GIB, source not clearly unidentifiable from EGD or cscope, capsule camera also was done with inconclusive results, bleeding scan negative. ? Hx of TIA on DAPT STORM CHASER: will defer reinstate of these to GI and neuro service discretion ? Leucocytosis reactive from #1 ? BPH Plan Cont PPI, Flomax, HANDH q12h, if drops consideration for Ct enterography. Medication and Non-Pharmacologic VTE Prophylaxis/Anticoagulants 07/05/18 0330 vte pharmacologic prophylaxis contraindicated (mi,sc) 07/05/18 0330 pneumatic compression stockings (mi,sc) 07/05/18 0330 activity - mobilize patient (mi,sc) VTE Prophylaxis: VTE prophylaxis appropriate Disposition: Home Plan of care discussed with: Patient SIGNATURE: Junaid Hackett MD PATIENT NAME: Francisca Velasquez DATE: 2018 PAGER/CONTACT #: [phone] HGB Collected: 2018 Status: F Source: [facility] 3:30 AM HEALTH SYSTEM REPOSITORY TYPE CODE TESTS RESULT OUT OF RANGE REFERENCE UNITS LAB HGBI(LOINC) 13.7-17.5 g/dL Low Hgb 8.1 Performed By: #### HGBI #### [facility] [address] [place], [place] [address] HGB Collected: 07/09/2018 Status: F Source: [facility] 8:45 PM HEALTH SYSTEM REPOSITORY TYPE CODE TESTS RESULT OUT OF RANGE REFERENCE UNITS LAB HGBI(LOINC) 13.7-17.5 g/dL Low Hgb 7.9 Performed By: #### HGBI #### [facility] [address] [place], [place] [address] HGB Collected: 07/09/2018 Status: F Source: [facility] 3:45 PM HEALTH SYSTEM REPOSITORY TYPE CODE TESTS RESULT OUT OF RANGE REFERENCE UNITS LAB HGBI(LOINC) 13.7-17.5 g/dL Low Hgb 8.6 Performed By: #### HGBI #### [facility] [address] [place], [place] [address] CONSULT Observed: 07/09/2018 Status: COMPLETED Source: [facility] 2:52 PM CLINIC OTHER CAMPUS REPOSITORY HNO ID: [id number] Author: Willard Torre Service: Neurology General Author Type: Physician Type: Consults Filed: 07/09/2018 5:21 PM Note Text: INITIAL CONSULT - GENERAL NEUROLOGY SERVICE DATE: 07/09/2018 SERVICE TIME: 2:53 PM Team Requesting Consult: Ric Melgar Current Attending Provider: Ric Melgar Neurology was asked to evaluate Francisca Velasquez, a 62 year old male. Our recommendations of care will be communicated by shared medical record. Subjective HPI: Francisca Velasquez is a 62 year old male with a PMH of UC, TIA, HLD, former smoker who was admitted to [facility] as a level III trauma after falling on 07/04. Patient was found to have GI bleed with hx of melena Hgb of 9.3. CT head normal. Neurology was consulted with the concern of patient being on both ASA and Plavix s/p TIA in May. He was experiencing numbness to his right mouth, arm and leg. Patient denies any stroke/TIA symptoms since hospitalization or now. Current hospital medications: atorvastatin 40 mg tab(s) (LIPITOR) 40 mg ORAL DAILY wDINNER pantoprazole DR 40 mg tab(s) (PROTONIX) 40 mg ORAL DAILY (6 AM) ondansetron (PF) 4 mg injection (ZOFRAN) 4 mg INTRAVENOUS q 6 H PRN tamsulosin ER 0.4 mg cap(s) (FLOMAX) 0.4 mg ORAL DAILY potassium chloride 80-120 mEq oral liquid 80-120 mEq ORAL/FEEDING TUBE PRN potassium chloride iv piggyback 20 mEq/100 mL 20 mEq INTRAVENOUS PRN magnesium sulfate in water 2 g in sterile water 50 ml 2 g INTRAVENOUS PRN sodium glycerophosphate 45 mmol in NaCl 0.9% 250 mL (GLYCOPHOS) 45 mmol INTRAVENOUS PRN calcium gluconate 4 g in NaCl 0.9% 250 mL 4 g INTRAVENOUS PRN perflutren lipid microspheres 1.1 mg/mL 1.3 mL injection (DEFINITY) 1.3 mL INTRAVENOUS DIRECTED PRN No past medical history on file. No past surgical history on file. Social History Marital status: Unknown Spouse name: Years of education: Number of children: Social History Main Topics Drug use: Unknown No family history on file. ALLERGIES Allergen Reactions - Penicillin Anaphylaxis Objective REVIEW OF SYSTEMS: GENERAL: Normal sleep, appetite and activity. No fevers or irritability. HEENT: Negative for headaches, No problems with hearing or vision, no nose bleeds or other nasal problems NECK: Negative for stiffness, lumps or significant neck swelling RESPIRATORY: Negative for cough, wheezing or respiratory distress CARDIOVASCULAR: Negative for chest pain, syncope, lightheadness or heart racing GI: No nausea, vomiting, or diarrhea : No history of dysuria, frequency or incontinence MUSCULOSKELETAL: Negative for joint pain or swelling, back pain or muscle pain SKIN: Negative for lesions, rash, and itching NEURO: See HPI PHYSICAL EXAM: General Appearance: Well appearing, alert, in no acute distress, well-hydrated, well nourished. Skin: Skin color, texture, turgor normal, no suspicious rashes or lesions Head: + excoriation across left forehead. Normocephalic, no masses, , tenderness or abnormalities Ears: Negative Nose/Sinuses: Nares normal, septum midline, mucosa normal, no drainage or sinus tenderness Oropharynx: Lips, mucosa, and tongue normal, teeth and gums normal, oropharynx normal Neck: Supple, no adenopathy; thyroid symmetric, normal size, no bruits Lungs: not examined Heart: Not examined Carotid Auscultation: not examined Abdomen: Normal abdominal exam Extremities: No deformities, edema, skin discoloration, clubbing or cyanosis. Good capillary refill. Musculoskeletal: Spine range of motion normal. Muscular strength intact Peripheral Pulses: Normal Neurological: ? Mental Status: Alert, oriented to person, place and time and Follows commands. Cranial Nerves: CNII: Visual acuity normal, Visual cartagena full to confrontation CNIII, IV, : Pupils equal, round and reactive to light, full extraoccular movements, without nystagmus CN V: Facial sensation intact bilaterally to fine touch CN VII: Facial muscles symmetric and strong, No noted facial droop CN VIII: Hears finger rub well bilaterally CN IX: Gag Reflex Not examined CN X: Palate elevates symmetrically CN XI: Full strength shoulder shrug bilaterally CN XII: Tongue protrusion full and midline ? Non-Dilated Fundiscopic Examination: Deferred Examination ? Motor Exam: Tone - Normal Bulk - no muscle atrophy Delt Biceps Triceps Wrist Ext Wrist Flex Finger Flex Finger Ext Finger Abd Finger Add Right 5/5 5/5 5/5 5/5 5/5 5/5 5/5 5/5 5/5 Left 5/5 5/5 5/5 5/5 5/5 5/5 5/5 5/5 5/5 Hip Flex Hip Ext BiFem (knee flex) Quads (knee ext) Gastroc (plantflx) TibAnt (Dorsiflx) TibPost (ank add) Ankle Eversion Ankle Inversion FlxHLong (ToeFlex) ExtHLong (ToeExt) Right 5/5 5/5 5/5 5/5 5/5 5/5 5/5 5/5 5/5 5/5 5/5 Left 5/5 5/5 5/5 5/5 5/5 5/5 5/5 5/5 5/5 5/5 5/5 Neck Flexors 5/5 Neck Extensors 5/5 REFLEXES Right Left Bicep 2/4 2/4 Tricep 2/4 2/4 BrRad 2/4 2/4 Knee 2/4 2/4 Ankle 2/4 2/4 Pathological Reflexes: Babinski: Bilateral Downward response Littlejohn: Bilateral Negative ? Sensation: Intact to light touch. ? Coordination: Finger-to- nose-finger intact bilaterally. ? Gait: not tested ? Romberg: not tested ? Rapid Alternating Movements: Normal bilaterally LABS/DATA: WBC (thou/cmm) Date Value 07/06/2018 12.12 07/05/2018 17.10 RBC (mil/cmm) Date Value 07/06/2018 2.65 07/05/2018 3.66 Platelet Count (thou/cmm) Date Value 07/06/2018 143 07/05/2018 246 BUN (mg/dL) Date Value 07/07/2018 19 07/06/2018 24 07/05/2018 34 Creatinine (mg/dL) Date Value 07/07/2018 1.01 07/06/2018 1.06 07/05/2018 1.08 No results found for: NEUTP, ABSNEUT, LYMPHP, ABSLYMPH, ABSMONO, EODINP, ABSEOSIN, BASOP, ABSBASO Lab Results Component Value Date PLT 143 07/06/2018 HB 7.9 07/09/2018 HCT 18.8 07/07/2018 ALB 2.1 07/05/2018 CA 6.7 07/07/2018 TBILI 0.7 07/05/2018 ALKPHOS 42 07/05/2018 AST 36 07/05/2018 GLUC 122 07/07/2018 BUN 19 07/07/2018 NA 141 07/07/2018 K 3.5 07/07/2018 CHLOR 113 07/07/2018 CO2 23 07/07/2018 ANION 9 07/07/2018 ALT 23 07/05/2018 CRP (mg/dL) Date Value 07/05/2018 0.83 No results found for: USCRP No results found for: CHOL No results found for: LDL No results found for: HDL No results found for: TG Hemoglobin A1C (%) Date Value 07/05/2018 4.6 DATA: Diagnostic tests reviewed for today's visit: Most recent labs and imaging results. Impression/Recommendations This is Francisca Velasquez, a 62 year old male with a history of UC and TIA here with fall and GI bleed. 1)TIA - NO symptomnsology at this time. -Was on DAPT -Case discussed with Dr. Torre-- patient okay to start plavix alone when cleared by GI. -Discussed in length with patient and about risk factors and benefit with UC and TIA hx. -Patient has been on DAPT x 4 weeks s/p TIA in May. -Patient scheduled for follow up with Dr. Choi in August -stroke risk factors discussed with patient: HTN, HLD, former smoker. 2) GI bleed -GI following -Colonoscopy= sigmoid diverticulosis, clots (old and new ) in colon and TI To be staffed by Dr. Torre, neuro attending. SIGNATURE: LINO SERRANO PA-C PATIENT NAME: Francisca Velasquez DATE: July 09, 2018 TIME: 2:53 PM PAGER/CONTACT #: [phone] [facility] STAFF ADDENDUM Willard Torre MD Agree with above, reflecting my direct input. There is no clear role for DAPT in this setting, but as the pt had an apparent TIA despite ASA, he should be on clopidogrel 75 mg daily for secondary prevention. Optimally would start Plavix ARTHUR but in the setting of UC with GIB would wait until stable from GI standpoint. Consider starting Plavix 7 days from now if ok with GI. Please call with questions. PERSONAL INVOLVEMENT IN CARE: ? ?Patient/Family Updated: Patient and/or family were updated regarding the goals of care,?medical plan for the day, income tax consultant recommendations, medical disposition and current medical condition/prognosis as and if clinically indicated. All questions and concerns were answered and addressed at this juncture. I agree with the resident MD note as above, except as otherwise indicated; my additional comments, if necessary, are in bold. ? This patient has a high probability of sudden, clinically significant deterioration, which requires the highest level of physician preparedness to intervene urgently. I managed/supervised life or organ supporting interventions that required frequent physician assessment. I devoted my full attention to the direct care of this patient for the amount of time indicated below. Time I spent with family or surrogate(s) is included only if the patient was incapable of providing the necessary information or participating in medical decision making. Time devoted to teaching and to any procedures I billed separately is not included. ? Critical Care Documentation: The patient has the following organ/system impairment(s): As above Time spent providing critical care services: 30 minutes. ? SIGNATURE: Willard Torre MD PATIENT NAME: Francisca Velasquez DATE: 07/09/18 TIME: 5:18 PM PAGER/CONTACT #: [phone] CONSULT PROG Observed: 07/09/2018 Status: COMPLETED Source: [facility] 1:43 PM CLINIC OTHER CAMPUS REPOSITORY HNO ID: [id number] Author: Daniel Greenwood Service: Gastroenterology Author Type: Nurse Practitioner Type: Consult Progress Note Filed: 07/09/2018 3:15 PM Note Text: CONSULT PROGRESS NOTE SERVICE DATE: 07/09/2018 SERVICE TIME: 1:43 PM CONSULTING SERVICE: GASTROENTEROLOGY Subjective INTERVAL HPI: S/p colonoscopy moderate sigmoid diverticulosis, old blood and few clots throughout colon and TI but no actively bleeding lesion seen or stigmata of recent bleeding. Hgb 7.9, patient denied rectal bleeding. Current hospital medications: atorvastatin 40 mg tab(s) (LIPITOR) 40 mg ORAL DAILY wDINNER pantoprazole DR 40 mg tab(s) (PROTONIX) 40 mg ORAL DAILY (6 AM) ondansetron (PF) 4 mg injection (ZOFRAN) 4 mg INTRAVENOUS q 6 H PRN tamsulosin ER 0.4 mg cap(s) (FLOMAX) 0.4 mg ORAL DAILY potassium chloride 80-120 mEq oral liquid 80-120 mEq ORAL/FEEDING TUBE PRN potassium chloride iv piggyback 20 mEq/100 mL 20 mEq INTRAVENOUS PRN magnesium sulfate in water 2 g in sterile water 50 ml 2 g INTRAVENOUS PRN sodium glycerophosphate 45 mmol in NaCl 0.9% 250 mL (GLYCOPHOS) 45 mmol INTRAVENOUS PRN calcium gluconate 4 g in NaCl 0.9% 250 mL 4 g INTRAVENOUS PRN perflutren lipid microspheres 1.1 mg/mL 1.3 mL injection (DEFINITY) 1.3 mL INTRAVENOUS DIRECTED PRN Objective PHYSICAL EXAM: Physical Exam Performed: GENERAL: Alert and oriented X 3 in no distress, cooperative and following commands SKIN: Skin warm and dry LUNGS: Lungs clear to auscultation, on RA CARDIAC: Normal S1 and S2 ABDOMEN: Abdomen soft and non-tender with + BS X 4 without guarding, rebound, or distention PULSES: 2+ radial BP 124/54 Pulse 108 Temp (Src) 98.1 (Axillary) Resp 14 Ht 5' 10.984 (1.80m) Wt 199 lb 1.2 oz (90.3kg) SpO2 97% BMI 27.78 kg/(m2). DATA: Diagnostic tests reviewed for today's visit: Ref. Range 07/09/2018 09:45 HGB Latest Ref Range: 13.7 - 17.5 g/dL 7.9 (L) Impression/Recommendations 1). GIB-s/p EGD on 07/05/18 (normal except 2-3cm sliding hiatus hernia), colonoscopy on 07/08 (moderate sigmoid diverticulosis, old blood and few clots throughout colon and TI but no actively bleeding lesion seen or stigmata of recent bleeding), hgb stable no more bleeding Assessment AND Plan: Continue to monitor h/h, transfuse <7, continue PPI, and await capsule endoscopy results SIGNATURE: Daniel Greenwood APRN.HUANG PATIENT NAME: Francisca Velasquez DATE: July 09, 2018 TIME: 3:07 PM PAGER: PROGRESS Observed: 07/09/2018 Status: COMPLETED Source: [facility] 11:35 AM CLINIC OTHER CAMPUS REPOSITORY HNO ID: [id number] Author: Ciao Meza MD Service: Critical Care Author Type: Resident Type: Progress Notes Filed: 07/09/2018 11:41 AM Note Text: Attestation signed by Abdulaziz Cintron at 07/09/2018 4:[address] [facility] STAFF PHYSICIAN NOTE OF PERSONAL INVOLVEMENT IN CARE I have reviewed the progress note obtained and documented by the resident and I personally participated in the monson components. I have discussed the case and management of the patient's care. The following comments revise or confirm relevant monson components of the note. IMPRESSION: Acute blood loss anemia( no Blood transfusion overnight) Acute GI bleed likely lower s/p colonoscopy today with old blood in the colon possible diverticular but also should r/o small bowel bleed H/o UC Lactic acidosis impoved Abnormal UA but negative culture H/o ischemic TIA, ASA and Plavix on hold because of GI bleed MMP PLAN: Capsule endoscopy waiting for the results Advance diet as tolerated D/c IVF Discussed with the patient the risk and benefit of Antiplatlets therapy, will hold fr now till we get an idea about the etiology of bleeding, we will also consult neurology for further fpc antiplatlets therapy for the future Watch off ABx Ok to transfer to the floor Patient/Family Updated: Patient, Francisca Velasquez, updated regarding the goals of care, medical plan for the day, income tax consultant recommendations, medical disposition and current medical condition/prognosis as and if clinically indicated. All questions and concerns were answered and addressed at this juncture. They were notified on July 09, 2018 at 1000. The duration of the conversation was 10 minutes. SIGNATURE: Abdulaziz Cintron MD [facility] DATE of SERVICE: 07/09/2018 TIME of SERVICE: 10am Medical Intensive Care Progress Note July 09, 2018 Patient Name: Francisca Velasquez Patient Location: [id number][id number] Admission Date: 07/05/2018 Length of Stay: 4 Primary Service: Medical Intensive Care Interval History for 07/09/18: Patient seen and examined in the AM. Patient's capsule endoscopy was done yesterday, results awaited. Patient's Hb stayed stable. olegario transfer to floor. Consulted Neurology for restarting his DAPT after stroke last month and GI bleed. Review of Systems All other systems reviewed and are negative. Objective Present Condition: 07/09/18 0731 07/09/18 0832 07/09/18 0943 07/09/18 1031 BP: 109/68 129/72 132/63 141/54 Pulse: 88 94 104 93 Resp: 16 15 12 Temp: (!) 35.7 ?C (96.3 ?F) (!) 35.9 ?C (96.6 ?F) 36.5 ?C (97.7 ?F) 36.5 ?C (97.7 ?F) TempSrc: SpO2: 99% 97% 99% 95% Weight: 90.3 kg (199 lb 1.2 oz) Height: 180.3 cm (5' 10.98) Physical Exam Constitutional: He is oriented to person, place, and time. Cardiovascular: Normal rate. Pulmonary/Chest: Breath sounds normal. Abdominal: Bowel sounds are normal. He exhibits no distension. There is no tenderness. Musculoskeletal: He exhibits no edema. Neurological: He is alert and oriented to person, place, and time. Current Facility-Administered Medications: atorvastatin 40 mg tab(s) (LIPITOR) 40 mg ORAL DAILY wDINNER Ke (Res) Atassi 40 mg at 07/08/[address] 40 mg tab(s) (PROTONIX) 40 mg ORAL DAILY (6 AM) Ke (Res) Atassi 40 mg at 07/09/18 0534 ondansetron (PF) 4 mg injection (ZOFRAN) 4 mg INTRAVENOUS q 6 H PRN Babar Yoon (Res) MD Latonya tamsulosin ER 0.4 mg cap(s) (FLOMAX) 0.4 mg ORAL DAILY Julian (Res) Parveen 0.4 mg at 07/09/18 0943 potassium chloride 80-120 mEq oral liquid 80-120 mEq ORAL/FEEDING TUBE PRN Jaz Priyadarshini (Res) Vipin potassium chloride iv piggyback 20 mEq/100 mL 20 mEq INTRAVENOUS PRN Jaz Priyadarshini (Res) Vipin magnesium sulfate in water 2 g in sterile water 50 ml 2 g INTRAVENOUS PRN Jaz Katelynnyadarshini (Res) Vipin sodium glycerophosphate 45 mmol in NaCl 0.9% 250 mL (GLYCOPHOS) 45 mmol INTRAVENOUS PRN Jaz Priyadarshini (Res) Vipin Last Rate: 31.25 mL/hr at 07/05/18 0606 45 mmol at 07/05/18 0606 calcium gluconate 4 g in NaCl 0.9% 250 mL 4 g INTRAVENOUS PRN Jaz Priyadarshini (Res) Vipin perflutren lipid microspheres 1.1 mg/mL 1.3 mL injection (DEFINITY) 1.3 mL INTRAVENOUS DIRECTED PRN Ke (Res) Atassi Labs: CBC: Recent Labs 07/09/18 0945 07/09/18 0250 07/08/18 2100 07/08/18 1540 07/08/18 0930 07/08/18 0420 07/08/18 0015 07/07/18 2130 07/06/18 1500 07/06/18 0325 07/05/18 0330 WBC -- -- -- -- -- -- -- -- -- 12.12* -- -- -- 17.10* HB 7.9* 8.0* 7.2* 6.9* 7.6* 6.9* 7.2* 6.5* < > 7.9* < > 8.9* < > 10.6* HCT -- -- -- -- -- -- -- 18.8* -- 23.7* -- 26.4* -- 33.0* PLT -- -- -- -- -- -- -- -- -- 143 -- -- -- 246 MCV -- -- -- -- -- -- -- -- -- 89.4 -- -- -- 90.2 < > = values in this interval not displayed. COAG: Recent Labs 07/05/18 0420 INR 1.01 BMP: Recent Labs 07/07/18 1550 07/06/18 0325 07/05/18 0330 GLUC 122* 96 115* NA 141 143 144 K 3.5 3.7 4.0 CHLOR 113* 114* 117* CO2 23 21 19* ANION 9 12 12 BUN 19* 24* 34* CREAT 1.01 1.06 1.08 CHEM: Recent Labs 07/07/18 1550 07/06/18 0325 07/05/18 1600 07/05/18 0330 ALB -- -- 2.1* -- TPROT -- -- 4.4* -- CA 6.7* 6.8* -- 7.3* MG -- -- -- 2.0 HEPATIC: Recent Labs 07/05/18 1600 ALKPHOS 42* ALT 23 AST 36 TBILI 0.7 URINALYSIS: Recent Labs 07/05/18 0940 SPGR 1.026 UGLUC NEGATIVE UBILI NEGATIVE UKET NEGATIVE UPROT NEGATIVE UROBIL 0.2 UWBC 13.7* CARDIAC: No results for input(s): CKTEST, CKMB, CKMBP in the last 168 hours.TROPONIN@:8,No results found for: BNP:8)@ Intake/Output Summary (Last 24 hours) at 07/09/18 1135 Last data filed at 07/09/18 0943 Gross per 24 hour Intake 3227 ml Output 4550 ml Net -1323 ml Serum creatinine: 1.01 mg/dL 07/07/18 1550 Estimated creatinine clearance: 81.8 mL/min Subjective No past medical history on file. No current facility-administered medications on file prior to encounter. No current outpatient prescriptions on file prior to encounter. Assessment/Plan Reviewed in its entirety and amended as appropriate on 07/09/18 Gastrointestinal - Acute blood loss anemia - 2/2 to GI bleed, GI consulted - Hx of UC - Hbg stable since the last 24 hrs - Hold plavix and ASA, consulted neurology for DAPT restart - INR wnl - EGD and colonoscopy do not show active bleeding, capsule endoscopy results awaited ? Hematologic - Acute blood loss anemia - Multiple transfusions - Hemoglobin q 6 hours ? ? Neuro - Syncope most likely 2/2 to being hypotensive - CT head negative, cervical spine negative - TIA last month, on Plavix and ASA, now held, neuro consulted - Trauma consulted, for unwitnessed fall, cleared off ? ? Infectious - UTI - Ciprofloxacin dc'd - Urine cx shows no growth - MRSA culture negative - Right ureteral stone in abdominal CT - Urology recommends outpatient management Signed: Caio Meza MD, PGY-1 Pager: [phone] Date: July 09, 2018 Time: 11:35 AM Recommendations are not finalized until co-signed by Staff physician. HGB Collected: 07/09/2018 Status: F Source: [facility] 9:45 AM HEALTH SYSTEM REPOSITORY TYPE CODE TESTS RESULT OUT OF RANGE REFERENCE UNITS LAB HGBI(LOINC) 13.7-17.5 g/dL Low Hgb 7.9 Performed By: #### HGBI #### [place] [address] HGB Collected: 07/09/2018 Status: F Source: [facility] 2:50 AM HEALTH SYSTEM REPOSITORY TYPE CODE TESTS RESULT OUT OF RANGE REFERENCE UNITS LAB HGBI(LOINC) 13.7-17.5 g/dL Low Hgb 8.0 Performed By: #### HGBI #### [facility] [address] [place], [place] [address] HGB Collected: 07/08/2018 Status: F Source: [facility] 9:00 PM HEALTH SYSTEM REPOSITORY TYPE CODE TESTS RESULT OUT OF RANGE REFERENCE UNITS LAB HGBI(LOINC) 13.7-17.5 g/dL Low Hgb 7.2 Performed By: #### HGBI #### [place] [address] NURSING PROG Observed: 07/08/2018 Status: COMPLETED Source: [facility] 7:08 PM [facility] REPOSITORY HNO ID: [id number] Author: Yuliet Rubio RN Service: Nursing Author Type: Registered Nurse Type: Nursing Progress Note Filed: 07/08/2018 7:11 PM Note Text: Mylicon 1.8ml given prior to ingestion of pill cam. #[id number]..[id number]. Expiration 09-26-2019 NURSING PROG Observed: 07/08/2018 Status: COMPLETED Source: [facility] 6:57 PM [facility] REPOSITORY HNO ID: [id number] Author: Yuliet Rubio RN Service: Nursing Author Type: Registered Nurse Type: Nursing Progress Note Filed: 07/08/2018 7:04 PM Note Text: Post Capsule Endoscopy Patient Instructions - Capsule Placement: ? Capsule was ingested without difficuly at 7:00pm - Suggested Post Capsule Plan: ? NPO after procedure ? No po meds for 2 hours post ingestion. May return to po meds at 9:00pm ? No MRI until capsule has been excreted from body. SIGNATURE: Yuliet Rubio RN PATIENT NAME: Francisca Velasquez DATE: July 08, 2018 TIME: 7:03 PM PAGER/CONTACT #: NURSING PROG Observed: 07/08/2018 Status: COMPLETED Source: [facility] 6:52 PM [facility] REPOSITORY HNO ID: [id number] Author: Yuliet Rubio RN Service: Nursing Author Type: Registered Nurse Type: Nursing Progress Note Filed: 07/08/2018 6:57 PM Note Text: CAPSULE ENDOSCOPY POST INGESTION PATIENT INFORMATION You may have clear liquids at 2100 You may take medicine at 2100 You may have regular diet at 2300 DIET: Do not eat or drink for two (2) hours after you have swallowed the capsule endoscope. Two (2) hours after you have swallowed the capsule endoscope you may drink clear liquids like coffee and tea (without cream), cola drinks, apple juice, broth, and eat Jell-O or popsicles. Please do not consume anything red in color. You may also return to taking your routine medications. Four (4) hours after you have swallowed the capsule endoscope, you may return to your usual diet. ACTIVITY: You may return to your normal activities after ingesting the capsule. Please avoid vigorous exercise or any activity that would loosen the adhesive connections on your abdomen. It is okay to operate electrical equipment while undergoing your capsule endoscopy. It is not likely that any household or office equipment will interfere with this examination. You may use cell phones, computers, remote TV appliances, microwaves, Exavio[employer] players and digital cameras. Because the equipment shape, size, and location may cause concerns from security in certain locations ([place], airports, and government buildings), we recommend you avoid them until testing is complete. [employer] may have similar technology for security. It is best to avoid these environments. EQUIPMENT: If one of the sensors becomes dislodged from your abdomen, simply place the adhesive side back on your abdomen in any position. Do not become concerned. The remaining sensors will transmit the pictures even with several sensors detached. RESTRICTIONS: Avoid other patients also undergoing capsule endoscopy. Although the transmission distance is limited, it is possible that your capsule images could be altered. You may not have an MRI (a test similar to an x-ray that uses magnets in the imaging process) while the capsule endoscope remains in your body. Do not schedule a capsule endoscope and an MRI for the same day. Should you require an MRI in the future and you have not seen the capsule evacuated in your stool, discuss this with your physician. An x-ray of your abdomen can show if the capsule has been evacuated. CAPSULE INFORMATION: The capsule endoscope will pass naturally in your stool. It is not necessary to retrieve or return the capsule. The images are stored in the equipment you have worn on your belt. You may flush the used capsule down the bathroom toilet for disposal. In some instances, patients have passed the capsule endoscope during stooling while the capsule is still actively blinking. Do not be alarmed if this happens to you. You may dispose of the capsule in the same manner. IRON: If you stopped taking your oral Iron for this examination, you may resume taking it after testing is completed or as directed by your physician. CONCERNS: Seek medical assistance if you develop extreme abdominal pain, bloating, fever, nausea and vomiting. These may be signs of obstruction and require medical intervention. NURSING PROG Observed: 07/08/2018 Status: COMPLETED Source: [facility] 6:[address] [facility] OTHER [place] REPOSITORY HNO ID: [id number] Author: Yuliet Hopson) JUVE Rubio Service: Nursing Author Type: Registered Nurse Type: Nursing Progress Note Filed: 07/08/2018 6:52 PM Note Text: CAPSULE ENDOSCOPY ADMINISTRATION SERVICE DATE: 07/08/2018 SERVICE TIME: 1700 ORDERING PHYSICIAN: Dr. Magallanes PRE-PROCEDURE REVIEW Patient identified by name: Yes Order confirmed: Yes Consent confirmed: Yes Reviewed Capsule Endoscopy Nursing Triage/Teaching Note: Yes Confirmed NPO status: Yes Confirmed oral Iron was held for 5 days: Yes SB CAPSULE ADMINISTRATION Patient ingested SB Capsule Endoscope (Olympus/Given) without difficulty. Lot#: [id number] Date of expiration: 09-26-2019 POST-PROCEDURE Post-capsule instructions reviewed and written information was provided to patient. Staff will warp picker tomorrow SIGNATURE: Yuliet Rubio RN PATIENT NAME: Francisca Velasquez DATE: July 08, 2018 TIME: 6:50 PM CONTACT #: [phone] HGB Collected: 07/08/2018 Status: F Source: [facility] 3:40 PM HEALTH SYSTEM REPOSITORY TYPE CODE TESTS RESULT OUT OF RANGE REFERENCE UNITS LAB HGBI(LOINC) 13.7-17.5 g/dL Low alert Hgb 6.9 Performed By: #### HGBI #### [facility] [address] [place] [address] PROGRESS Observed: 07/08/2018 Status: COMPLETED Source: [facility] 1:24 PM [facility] REPOSITORY HNO ID: [id number] Author: Caio Meza MD Service: Critical Care Author Type: Resident Type: Progress Notes Filed: 07/08/2018 1:30 PM Note Text: Attestation signed by Abdulaziz Cintron at 07/08/2018 1:[address] [facility] STAFF PHYSICIAN NOTE OF PERSONAL INVOLVEMENT IN CARE I have reviewed the progress note obtained and documented by the resident and I personally participated in the monson components. I have discussed the case and management of the patient's care. The following comments revise or confirm relevant monson components of the note. IMPRESSION: Acute blood loss anemia( required 2 U of Blood transfusion overnight) Acute GI bleed likely lower s/p colonoscopy today with old blood in the colon possible diverticular but also should r/o small bowel bleed H/o UC Lactic acidosis impoved Abnormal UA but negative culture H/o ischemic TIA, ASA and Plavix on hold because of GI bleed MMP PLAN: Plan to arrange for capsule endoscopy camera Continue to trend H/h and transfuse for if Hb<7 protonix po daily Keep holding ASA and Plavix NPO D/c cirpro and watch off ABx Continue to monitor in the icu This patient has a high probability of sudden, clinically significant deterioration, which requires the highest level of physician preparedness to intervene urgently. I managed/supervised life or organ supporting interventions that required frequent physician assessment. I devoted my full attention to the direct care of this patient for the amount of time indicated below. Time I spent with family or surrogate(s) is included only if the patient was incapable of providing the necessary information or participating in medical decision making. Time devoted to teaching and to any procedures I billed separately is not included. Critical Care Documentation: The patient has the following organ/system impairment(s): Acute blood loss Time spent providing critical care services: 35 minutes. SIGNATURE: Abdulaziz Cintron MD [facility] DATE of SERVICE: 07/08/2018 TIME of SERVICE: 800AM Medical Intensive Care Progress Note July 08, 2018 Patient Name: Francisca Velasquez Patient Location: [id number]* Admission Date: 07/05/2018 Length of Stay: 3 Primary Service: Medical Intensive Care Interval History for 07/08/18: Patient seen and examined in the AM. Patient's Hb did drop to 6.9 overnight and he was given additional 2 U of packed RBCs. His colonoscopy was done, which revealed moderate diverticulosis, old clots throughout colon but no active bleeding. Capsule endoscopy to be done today Review of Systems All other systems reviewed and are negative. Objective Present Condition: 07/08/18 1050 07/08/18 1136 07/08/18 1207 07/08/18 1230 BP: 104/64 106/63 120/72 108/68 Pulse: 96 89 96 91 Resp: 18 16 20 20 Temp: 37.1 ?C (98.8 ?F) 37 ?C (98.6 ?F) 37 ?C (98.6 ?F) 37 ?C (98.6 ?F) TempSrc: SpO2: 97% 100% 98% 98% Weight: Height: Physical Exam Constitutional: He is oriented to person, place, and time. Cardiovascular: Normal rate. Pulmonary/Chest: Breath sounds normal. Abdominal: He exhibits no distension. There is no tenderness. Musculoskeletal: He exhibits no edema. Neurological: He is alert and oriented to person, place, and time. Current Facility-Administered Medications: atorvastatin 40 mg tab(s) (LIPITOR) 40 mg ORAL DAILY Edwar Ke (Res) Atassi [START ON 07/09/2018] pantoprazole DR 40 mg tab(s) (PROTONIX) 40 mg ORAL DAILY (6 AM) Ke (Res) Atassi ondansetron (PF) 4 mg injection (ZOFRAN) 4 mg INTRAVENOUS q 6 H PRN Babar Yoon (Res) MD Latonya tamsulosin ER 0.4 mg cap(s) (FLOMAX) 0.4 mg ORAL DAILY Julian (Res) Parveen 0.4 mg at 07/08/18 0929 potassium chloride 80-120 mEq oral liquid 80-120 mEq ORAL/FEEDING TUBE PRN Jaz Linares (Res) Vipin potassium chloride iv piggyback 20 mEq/100 mL 20 mEq INTRAVENOUS PRN Jaz Linares (Res) Vipin magnesium sulfate in water 2 g in sterile water 50 ml 2 g INTRAVENOUS PRN Jaz Linares (Res) Vipin sodium glycerophosphate 45 mmol in NaCl 0.9% 250 mL (GLYCOPHOS) 45 mmol INTRAVENOUS PRN Jaz Linares (Res) Vipin Last Rate: 31.25 mL/hr at 07/05/18 0606 45 mmol at 07/05/18 0606 calcium gluconate 4 g in NaCl 0.9% 250 mL 4 g INTRAVENOUS PRN Jaz Linares (Res) Vipin lactated ringers infusion 100 mL/hr INTRAVENOUS CONTINUOUS Jaz Linares (Res) Vipin Last Rate: 100 mL/hr at 07/08/18 1208 100 mL/hr at 07/08/18 1208 perflutren lipid microspheres 1.1 mg/mL 1.3 mL injection (DEFINITY) 1.3 mL INTRAVENOUS DIRECTED LIU Dempsey (Res) Kamranssi Labs: CBC: Recent Labs 07/08/18 0930 07/08/18 0420 07/08/18 0015 07/07/18 2130 07/07/18 1830 07/07/18 1557 07/07/18 1050 07/07/18 0300 07/06/18 1500 07/06/18 0325 07/05/18 0330 WBC -- -- -- -- -- -- -- -- -- 12.12* -- -- -- 17.10* HB 7.6* 6.9* 7.2* 6.5* 7.2* 6.0* 5.9* 7.1* < > 7.9* < > 8.9* < > 10.6* HCT -- -- -- 18.8* -- -- -- -- -- 23.7* -- 26.4* -- 33.0* PLT -- -- -- -- -- -- -- -- -- 143 -- -- -- 246 MCV -- -- -- -- -- -- -- -- -- 89.4 -- -- -- 90.2 < > = values in this interval not displayed. COAG: Recent Labs 07/05/18 0420 INR 1.01 BMP: Recent Labs 07/07/18 1550 07/06/18 0325 07/05/18 0330 GLUC 122* 96 115* NA 141 143 144 K 3.5 3.7 4.0 CHLOR 113* 114* 117* CO2 23 21 19* ANION 9 12 12 BUN 19* 24* 34* CREAT 1.01 1.06 1.08 CHEM: Recent Labs 07/07/18 1550 07/06/18 0325 07/05/18 1600 07/05/18 0330 ALB -- -- 2.1* -- TPROT -- -- 4.4* -- CA 6.7* 6.8* -- 7.3* MG -- -- -- 2.0 HEPATIC: Recent Labs 07/05/18 1600 ALKPHOS 42* ALT 23 AST 36 TBILI 0.7 URINALYSIS: Recent Labs 07/05/18 0940 SPGR 1.026 UGLUC NEGATIVE UBILI NEGATIVE UKET NEGATIVE UPROT NEGATIVE UROBIL 0.2 UWBC 13.7* CARDIAC: No results for input(s): CKTEST, CKMB, CKMBP in the last 168 hours.TROPONIN@:8,No results found for: BNP:8)@ Intake/Output Summary (Last 24 hours) at 07/08/18 1324 Last data filed at 07/08/18 1207 Gross per 24 hour Intake 5855 ml Output 1800 ml Net 4055 ml Serum creatinine: 1.01 mg/dL 07/07/18 1550 Estimated creatinine clearance: 81.8 mL/min Subjective No past medical history on file. No current facility-administered medications on file prior to encounter. No current outpatient prescriptions on file prior to encounter. Assessment/Plan Reviewed in its entirety and amended as appropriate on 07/08/18 Gastrointestinal - Acute blood loss anemia - 2/2 to GI bleed, GI consulted - Hx of UC - HGB dropped to 6.9 this AM. Given 2 unit of RBC - Hb q6, transfuse <7 - Hold plavix and ASA - INR wnl - EGD and colonoscopy do not show active bleeding, capsule endoscopy to follow ? Hematologic - Acute blood loss anemia - Multiple transfusions - Hemoglobin q 6 hours ? Neuro - Syncope most likely 2/2 to being hypotensive - CT head negative, cervical spine negative - TIA last month, on Plavix and ASA, now held - Trauma consulted, for unwitnessed fall, cleared off ? ? Infectious - UTI - Ciprofloxacin dc'd - Urine cx shows no growth - MRSA culture negative - Right ureteral stone in abdominal CT - Urology recommends outpatient management Signed: Caio Meza MD, PGY-1 Pager: [phone] Date: July 08, 2018 Time: 1:24 PM Recommendations are not finalized until co-signed by Staff physician. NURSING PROG Observed: 07/08/2018 Status: COMPLETED Source: [facility] 10:55 AM [facility] REPOSITORY HNO ID: [id number] Author: Mary Grace Gr RN Service: Nursing Author Type: Registered Nurse Type: Nursing Progress Note Filed: 07/08/2018 10:56 AM Note Text: Nursing Progress Note Patient Name: Francisca Velasquez Patient Location: [place] [address]* Daily Note:bedside colonostopy completed. See vitals from 1000 to current. Pt tolerated well. See attached sedation form. Pt now awake and answering questions but drowsy. Vitals stable. Will monitor This note was completed by: Mary Grace Gr RN OPERATIVE NO Observed: 07/08/2018 Status: COMPLETED Source: [facility] 9:46 AM [facility] REPOSITORY HNO ID: [id number] Author: Tom Magallanes Service: Gastroenterology Author Type: Physician Type: Operative Report Filed: 07/08/2018 10:54 AM Note Text: OPERATIVE/PROCEDURE REPORT LOG ID: [id number] Surgery/Procedure Date: 07/08/2018 Incision/Procedure Start Time: Incision Close/Procedure End Time: Surgeon(s)/Proceduralist(s) and Loss Prevention Auditor(s): Surgeon(s) and Role: * Tom Magallanes - Primary No Additional Staff Procedure(s): Colonoscopy Anesthesia: Monitored Anesthesia Care Brief History: 62M with hx of UC x 30yrs (not on tx, in clinical remission), TIA (on ASA, Plavix) presenting with melena progressing to BRBPR starting 07/04 and resulting in syncope. CT brain normal. Hb 9.3 on admission with tachycardia but normal BP. Currently in ICU. Hb dropped to 5.9 yesterday. Having maroon stools. EGD 07/[address] abdo and RBC tagged scan also normal. The risks, benefits and alternatives of the procedure were explained to the patient/responsible accompanying adult. This includes, but is not limited to, bleeding, infection and a 1:1000 risk of perforation. There is also a small risk of allergic reaction(s) due to sedatives, need for hospitalization, need for transfusions, need for surgery, and likelihood of missing a polyp or neoplastic lesion. The patient understands this and is amenable to proceeding. Procedure Details: The patient was placed in the left lateral decubitus position. A digital rectal exam was performed and this was normal. The Olympus colonoscope was introduced into the rectum and advanced to the terminal ileum for 15cm. The procedure was not technically difficult. The cecum was identified by the appendiceal orifice and the ileocecal valve. The bowel preparation was fair with a lot of residual old blood and a few clots, and the total withdrawal time was 10 minutes. The scope was then slowly withdrawn and the mucosal folds examined in detail. Old blood and clots were noted throughout the colon and into the TI. Moderate sigmoid diverticulosis was noted. There was no focal lesion or diverticulum that was actively bleeding or had stigmata of recent bleeding. The mucosa was normal. Retroflexion was performed and this showed no abnormalities. The scope was then withdrawn and the patient tolerated the procedure well. Pre-Op/Pre-Procedure Diagnosis: LGIB Post-Op/Post-Procedure Diagnosis: Moderate sigmoid diverticulosis Old blood and few clots throughout colon and TI No actively bleeding lesion seen. No stigmata of recent bleeding Specimens: See above EBL: None Complications: None Recommendations: Will arrange capsule endoscopy today to assess May need CT enterography The primary surgeon/proceduralist performed the entire procedure. Tom Magallanes MD MPH [facility] SIGNATURE: Tom Magallanes MD MPH [facility] PATIENT NAME: Francisca Velasquez DATE: July 08, 2018 TIME: 10:50 AM PAGER/CONTACT #: [phone] HGB Collected: 07/08/2018 Status: F Source: [facility] 9:30 AM HEALTH SYSTEM REPOSITORY TYPE CODE TESTS RESULT OUT OF RANGE REFERENCE UNITS LAB HGBI(LOINC) 13.7-17.5 g/dL Low Hgb 7.6 Performed By: #### HGBI #### [facility] [address] [place] [address] CASE MGT INIT Observed: 07/08/2018 Status: COMPLETED [facility]:06 AM CLINIC OTHER CAMPUS REPOSITORY HNO ID: [id number] Author: Dilip (Rn) JUVE Ibanez Service: Care Management Author Type: Registered Nurse Type: Care Mgt Initial Assessment Filed: 07/08/2018 9:16 AM Note Text: CARE MANAGEMENT: ASSESSMENT AND DISCHARGE PLAN SERVICE DATE: 07/08/2018 SERVICE TIME: 9:07 AM PRIMARY CARE PHYSICIAN: No primary care provider on file. 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 No Advance Directive: Health Literacy: 1. How often do you need to have someone help you when you read instructions, pamphlets, or other written material from your doctor or pharmacy? Never - 1 2. How confident are you filling out medical forms by yourself? Extremely - 1 If Patient scores > 3 on either question, the following interventions were put into place: Patient did not score > 3 FUNCTIONAL AND COGNITIVE/BEHAVIORAL PRIOR TO ADMISSION: Baseline Mental Status: Alert AND Oriented, Person, Place , Time and Situation Functional Status: Independent Does Patient Currently Receive Any Community Services or Home Care? None Equipment Prior to Admission: None Has the Patient Been in a Prison Facility in the Past 30 days? 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 Yes Patient's transition needs and plan for meeting these needs: TBD Does the patient have an acute stroke diagnosis, or has the patient had a stroke during this admission? No Medication Adherence: I am convinced of the importance of my prescription medication: Agree mostly - 0 I worry that my prescription medication will do more harm than good to me Disagree mostly - 0 I feel financially burdened by my axi-dt-zwootr expenses for my prescription medication: Disagree mostly -0 Patient is categorized as low risk < 2 Are you interested in bedside delivery of your medications? No Food Concerns: In the Last Month, Have You had Trouble Getting Food? No trouble getting food During the Last Month, Have You Worried Whether Your Food Would Run Out Before You Had Enough Money to Buy More? No Is the Patient Psychosocially Complex? No ASSESSMENT AND PLAN: Medical Needs: None Psychosocial Needs: None FREEDOM OF CHOICE EXPLAINED: N/A POTENTIAL TRANSITION PLANS Home Pharmacy: [facility] Plan for Colonoscopy today. SIGNATURE: Dilip Ibanez RN PATIENT NAME: Francisca Velasquez DATE: July 08, 2018 TIME: 9:07 AM PAGER/CONTACT #: [phone] HGB Collected: 07/08/2018 Status: F Source: [facility] 4:20 AM HEALTH SYSTEM REPOSITORY TYPE CODE TESTS RESULT OUT OF RANGE REFERENCE UNITS LAB HGBI(LOINC) 13.7-17.5 g/dL Low alert Hgb 6.9 Performed By: #### HGBI #### [place] [address] HGB Collected: 07/08/2018 Status: F Source: [facility] 12:15 AM HEALTH SYSTEM REPOSITORY TYPE CODE TESTS RESULT OUT OF RANGE REFERENCE UNITS LAB HGBI(LOINC) 13.7-17.5 g/dL Low Hgb 7.2 Performed By: #### HGBI #### [place] [address] RBC PRODUCTS Collected: 07/07/2018 Status: F Source: [facility] 10:03 PM HEALTH SYSTEM REPOSITORY TYPE CODE TESTS RESULT OUT OF REFERENCE UNITS RANGE LAB UNIT1(LOINC ) Xmatch Unit 1 see below Result Comment: Compatible Performed By: #### RBCPS #### [place] [address] HGB Collected: 07/07/2018 Status: F Source: [facility] 9:30 PM HEALTH SYSTEM REPOSITORY TYPE CODE TESTS RESULT OUT OF RANGE REFERENCE UNITS LAB HGBI(LOINC) 13.7-17.5 g/dL Low alert Hgb 6.5 Performed By: #### HGBI #### [facility] [address] [place] [address] HCT Collected: 07/07/2018 Status: F Source: [facility] 9:30 PM HEALTH SYSTEM REPOSITORY TYPE CODE TESTS RESULT OUT OF RANGE REFERENCE UNITS LAB HCTI(LOINC) 40.1-51.0 % Low alert Hct 18.8 Performed By: #### HCTI #### [facility] [address] [place] [address] HGB Collected: 07/07/2018 Status: F Source: [facility] 6:30 PM HEALTH SYSTEM REPOSITORY TYPE CODE TESTS RESULT OUT OF RANGE REFERENCE UNITS LAB HGBI(LOINC) 13.7-17.5 g/dL Low Hgb 7.2 Performed By: #### HGBI #### [facility] [address] [place] [address] RBC PRODUCTS Collected: 07/07/2018 Status: F Source: [facility] 6:03 PM HEALTH SYSTEM REPOSITORY TYPE CODE TESTS RESULT OUT OF REFERENCE UNITS RANGE LAB UNIT1(LOINC ) Xmatch Unit 1 see below Result Comment: Compatible Performed By: #### RBCPS #### [place] [address] RBC PRODUCTS Collected: 07/07/2018 Status: F Source: [facility] 4:19 PM HEALTH SYSTEM REPOSITORY TYPE CODE TESTS RESULT OUT OF REFERENCE UNITS RANGE LAB UNIT1(LOINC ) Xmatch Unit 1 see below Result Comment: Compatible Performed By: #### RBCPS #### [facility] [address] [place] [address] HGB Collected: 07/07/2018 Status: F Source: [facility] 3:57 PM HEALTH SYSTEM REPOSITORY TYPE CODE TESTS RESULT OUT OF RANGE REFERENCE UNITS LAB HGBI(LOINC) 13.7-17.5 g/dL Low alert Hgb 6.0 Performed By: #### HGBI #### [place] [address] BASIC PANEL Collected: 07/07/2018 Status: F Source: [facility] 3:50 PM HEALTH SYSTEM REPOSITORY TYPE CODE TESTS RESULT OUT OF REFERENCE UNITS RANGE LAB NA(LOINC) 136-145 mEq/L Sodium Blood 141 LAB K(LOINC) 3.5-5.1 mEq/L Potassium Blood 3.5 LAB CL(LOINC) 98-107 mEq/L Chloride High Blood 113 LAB CO2(LOINC) 21-32 mEq/L CO2 Blood 23 LAB GLU(LOINC) 70-99 mg/dL Glucose High Blood 122 LAB BUN(LOINC) 7-18 mg/dL BUN High Blood 19 LAB CREA(LOINC 0.67-1.17 mg/dL ) Creatinine Blood 1.01 LAB CA(LOINC) 8.5-10.1 mg/dL Low Calcium Blood 6.7 LAB ANGAP(LOIN 8-16 C) Anion Gap 9 Performed By: #### P8 #### [place] [id number] CONSULT PROG Observed: 07/07/2018 Status: COMPLETED Source: [facility] 3:23 PM CLIN[facility] OTHER CAMPUS REPOSITORY HNO ID: [id number] Author: Tom Magallanes Service: Gastroenterology Author Type: Physician Type: Consult Progress Note Filed: 07/07/2018 3:25 PM Note Text: SUBJECTIVE: Francisca Velasquez was seen in follow up regarding possible GI bleed He had a few episodes of dark red stool Frday after his EGD. No further melena or hematochezia Sat. No abdominal pain. No vomiting. He did have 1 episode of possible melena today He had CT abdomen and RBC tagged scan which were negative. Current Facility-Administered Medications: pantoprazole 40 mg injection (PROTONIX) 40 mg INTRAVENOUS DAILY (6 AM) tamsulosin ER 0.4 mg cap(s) (FLOMAX) 0.4 mg ORAL DAILY potassium chloride 80-120 mEq oral liquid 80-120 mEq ORAL/FEEDING TUBE PRN potassium chloride iv piggyback 20 mEq/100 mL 20 mEq INTRAVENOUS PRN magnesium sulfate in water 2 g in sterile water 50 ml 2 g INTRAVENOUS PRN sodium glycerophosphate 45 mmol in NaCl 0.9% 250 mL (GLYCOPHOS) 45 mmol INTRAVENOUS PRN calcium gluconate 4 g in NaCl 0.9% 250 mL 4 g INTRAVENOUS PRN lactated ringers infusion 100 mL/hr INTRAVENOUS CONTINUOUS ciprofloxacin 400 mg in D5W 200 mL (CIPRO) 400 mg INTRAVENOUS q 12 H perflutren lipid microspheres 1.1 mg/mL 1.3 mL injection (DEFINITY) 1.3 mL INTRAVENOUS DIRECTED PRN iv contrast (radiology procedure) INTRAVENOUS DIRECTED PRN ALLERGIES Allergen Reactions - Penicillin Anaphylaxis Interim Labs and/or Imaging: Most recent labs Most recent imaging HGB (g/dL) Date Value 07/07/2018 5.9 Hematocrit (%) Date Value 07/06/2018 23.7 WBC (thou/cmm) Date Value 07/06/2018 12.12 Lab Results Component Value Date TBILI 0.7 07/05/2018 CREAT 1.06 07/06/2018 INR 1.01 07/05/2018 ALB 2.1 (L) 07/05/2018 ALKPHOS 42 (L) 07/05/2018 AST 36 07/05/2018 ALT 23 07/05/2018 TPROT 4.4 (L) 07/05/2018 Endoscopic Procedures: EGD yesterday REVIEW OF SYSTEMS: GASTROINTESTINAL: SEE ABOVE CARDIOVASCULAR: NONE RESPIRATORY: NONE PHYSICAL EXAMINATION: BP 120/74 Pulse 105 Temp (Src) 97.7 (Axillary) Resp 21 Ht 5' 11 (1.80m) Wt 199 lb 1.2 oz (90.3kg) SpO2 97% BMI 27.78 kg/(m2). GENERAL APPEARANCE: Well appearing, alert, in no acute distress, well-hydrated, well nourished. SKIN: Skin color, texture, turgor normal, no suspicious rashes or lesions. EYES: Anicteric sclera. Pupils are equally round and reactive to light. Extraocular movements are intact. LUNGS: Lungs clear to auscultation. No wheezing, rhonchi, rales. HEART: RRR without murmur, gallop, or rubs. No ectopy. ABDOMEN: Abdomen soft, non-tender, non distended. Bowel sounds normal. No masses, ascites or hepatosplenomegaly. PLAN: 62M with hx of UC x 30yrs, TIA (on ASA, Plavix) presenting with melena progressing to BRBPR starting yesterday and resulting in syncope. CT brain normal. Hb 9.3 on admission with tachycardia but normal BP. Currently in ICU. - Hold Plavix and ASA - EGD done and mostly normal. CT abdo and RBC tagged scan unremarkable CRP and lactate mostly normal. - Recurrent drop in hemoglobin but without significant overt blood loss. HD stable. Will need colonoscopy given history of UC. Plan for Sunday as he is currently stable. Keep on clear liquid diet. We'll start prep this afternoon - He can be moved to [facility] when stable. Tom Magallanes MD MPH [facility] PROGRESS Observed: 07/07/2018 Status: COMPLETED Source: [facility] 1:33 PM CLINIC OTHER CAMPUS REPOSITORY HNO ID: [id number] Author: Luis Felipe Burch Jr. Service: Critical Care Author Type: Physician Type: Progress Notes Filed: 07/07/2018 2:29 PM Note Text: Medical Intensive Care Progress Note July 07, 2018 Patient Name: Francisca Velasquez Patient Location: [place] [address] [address]* Admission Date: 07/05/2018 Length of Stay: 2 Primary Service: Medical Intensive Care Interval History for 07/07/18: Patient seen and examined in the AM. Patient was doing well this morning. Had large dark bloody bowel movement. No active bleeding from other sites. He denies abdominal pain, nausea or vomiting. HGB dropped to 5.9 this AM. Given 1 unit of RBC and I unit of pooled platelets Review of Systems Gastrointestinal: Positive for blood in stool. Objective Present Condition: 07/07/18 1129 07/07/18 1147 07/07/18 1207 07/07/18 1222 BP: 96/50 97/51 109/86 109/52 Pulse: 99 (!) 139 Resp: 22 17 Temp: 36.5 ?C (97.7 ?F) (!) 35.8 ?C (96.4 ?F) TempSrc: Axillary Axillary Axillary Axillary SpO2: Weight: Height: Physical Exam Constitutional: He is oriented to person, place, and time. Cardiovascular: Normal rate and regular rhythm. Pulmonary/Chest: Breath sounds normal. Abdominal: Bowel sounds are normal. He exhibits no distension. There is no tenderness. Musculoskeletal: He exhibits no edema. Neurological: He is alert and oriented to person, place, and time. Current Facility-Administered Medications: pantoprazole 40 mg injection (PROTONIX) 40 mg INTRAVENOUS DAILY (6 AM) Ke (Res) Atassi 40 mg at 07/07/18 0514 tamsulosin ER 0.4 mg cap(s) (FLOMAX) 0.4 mg ORAL DAILY Julian (Res) Parveen 0.4 mg at 07/07/18 0848 potassium chloride 80-120 mEq oral liquid 80-120 mEq ORAL/FEEDING TUBE PRN Jaz Linares (Res) Vipin potassium chloride iv piggyback 20 mEq/100 mL 20 mEq INTRAVENOUS PRN Jaz Khandaleesa (Res) Vipin magnesium sulfate in water 2 g in sterile water 50 ml 2 g INTRAVENOUS PRN Jaz Erindayamilethni (Res) Vipin sodium glycerophosphate 45 mmol in NaCl 0.9% 250 mL (GLYCOPHOS) 45 mmol INTRAVENOUS PRN Jaz Erindayamilethni (Res) Vipin Last Rate: 31.25 mL/hr at 07/05/18 0606 45 mmol at 07/05/18 0606 calcium gluconate 4 g in NaCl 0.9% 250 mL 4 g INTRAVENOUS PRN Jaz Linares (Res) Vipin lactated ringers infusion 100 mL/hr INTRAVENOUS CONTINUOUS Jaz Erindayamilethni (Res) Vipin Last Rate: 100 mL/hr at 07/07/18 1129 100 mL/hr at 07/07/18 1129 ciprofloxacin 400 mg in D5W 200 mL (CIPRO) 400 mg INTRAVENOUS q 12 H Ke (Res) Atassi Last Rate: 200 mL/hr at 07/07/18 1008 400 mg at 07/07/18 1008 perflutren lipid microspheres 1.1 mg/mL 1.3 mL injection (DEFINITY) 1.3 mL INTRAVENOUS DIRECTED PRN Ke (Res) Atassi iv contrast (radiology procedure) INTRAVENOUS DIRECTED PRN Elias (Res) MD Daniele Labs: CBC: Recent Labs 07/07/18 1050 07/07/18 0300 07/06/18 2140 07/06/18 1500 07/06/18 1000 07/06/18 0325 07/05/18 2156 07/05/18 1600 07/05/18 0330 WBC -- -- -- 12.12* -- -- -- -- -- 17.10* HB 5.9* 7.1* 7.5* 7.9* 8.3* 8.9* 7.0* 7.5* < > 10.6* HCT -- -- -- 23.7* -- 26.4* -- -- -- 33.0* PLT -- -- -- 143 -- -- -- -- -- 246 MCV -- -- -- 89.4 -- -- -- -- -- 90.2 < > = values in this interval not displayed. COAG: Recent Labs 07/05/18 0420 INR 1.01 BMP: Recent Labs 07/06/18 0325 07/05/18 0330 GLUC 96 115* NA 143 144 K 3.7 4.0 CHLOR 114* 117* CO2 21 19* ANION 12 12 BUN 24* 34* CREAT 1.06 1.08 CHEM: Recent Labs 07/06/18 0325 07/05/18 1600 07/05/18 0330 ALB -- 2.1* -- TPROT -- 4.4* -- CA 6.8* -- 7.3* MG -- -- 2.0 HEPATIC: Recent Labs 07/05/18 1600 ALKPHOS 42* ALT 23 AST 36 TBILI 0.7 URINALYSIS: Recent Labs 07/05/18 0940 SPGR 1.026 UGLUC NEGATIVE UBILI NEGATIVE UKET NEGATIVE UPROT NEGATIVE UROBIL 0.2 UWBC 13.7* CARDIAC: No results for input(s): CKTEST, CKMB, CKMBP in the last 168 hours.TROPONIN@:8,No results found for: BNP:8)@ Intake/Output Summary (Last 24 hours) at 07/07/18 1333 Last data filed at 07/07/18 1148 Gross per 24 hour Intake 4859 ml Output 3220 ml Net 1639 ml Subjective No past medical history on file. No current facility-administered medications on file prior to encounter. No current outpatient prescriptions on file prior to encounter. Assessment/Plan Reviewed in its entirety and amended as appropriate on 07/07/18 Gastrointestinal - Acute blood loss anemia - 2/2 to GI bleed, GI consulted - Hx of UC - HGB dropped to 5.9 this AM. Given 1 unit of RBC and 1 unit of pooled platelets - Hb q6, transfuse <7 - Hold plavix and ASA - INR wnl ? Hematologic - Acute blood loss anemia - Given 4 U of packed RBCs here, and 2 U at OSH ? Neuro - Syncope most likely 2/2 to being hypotensive - CT negative - TIA last month, on Plavix and ASA, now held - Trauma consulted, for unwitnessed fall, cleared off ? Infectious - UTI - treating with ciprofloxacin, penicillin allergy - Urine cx shows no growth - MRSA culture negative ? Signed: Tyler Santana MD, PGY-1 Pager: [phone] Date: July 07, 2018 Time: 1:[address] [facility] STAFF PHYSICIAN NOTE OF PERSONAL INVOLVEMENT IN CARE I have reviewed the documentation by the resident and I personally participated in the monson components. I have discussed the case and management of the patient's care. The following comments revise or confirm relevant monson components of the note. Continues to have intermittent recurrent bleeding Discussed with GI, , patient Agreeable to platelet transfusion with next blood transfusion Keep Hgb > 7 IMPRESSION: Critical Care Documentation: The patient has the following organ/system impairment(s): ?Acute blood loss anemia ? 1. Recurrent lower GI bleed 2. Hx of ulcerative colitis 3. Syncope (unwitnessed) with scalp laceration but no obvious bone or ligamentous injury - cleared by trauma service 4. Lactic acidosis resolved 5. Tachycardia with anemia 6. Recent TIA and was treated with asa and plavix - now stopped and given recurrent bleeding I discussed transfusion of both platelets and blood as above MMP ? PLAN: Transfuse to keep hgb >7, normal INR Transfuse platelets as he has recurrent bleeding (as above) Colonoscopy Sunday Hgb q 6 hours Continue to monitor in MICU Discussed with staff/ patient/ family This patient has a high probability of sudden, clinically significant deterioration, which requires the highest level of physician preparedness to intervene urgently. I managed/supervised life or organ supporting interventions that required frequent physician assessment. I devoted my full attention to the direct care of this patient for the amount of time indicated below. Time I spent with family or surrogate(s) is included only if the patient was incapable of providing the necessary information or participating in medical decision making. Time devoted to teaching is not included. Time spent providing critical care services: 35 minutes excluding procedures. SIGNATURE: Luis Felipe Burch Jr, MD [facility] TIME of SERVICE: 2:21 PM PHERESED PLATELETS Collected: 07/07/2018 Status: F Source: [facility] 11:32 AM HEALTH SYSTEM REPOSITORY TYPE CODE TESTS RESULT OUT OF REFERENCE UNITS RANGE LAB PPHR(LOINC) Pheresed Plts Done unit 1 Performed By: #### PPHRS #### [place] [id number] RBC PRODUCTS Collected: 07/07/2018 Status: F Source: [facility] 11:31 AM HEALTH SYSTEM REPOSITORY TYPE CODE TESTS RESULT OUT OF REFERENCE UNITS RANGE LAB UNIT1(LOINC ) Xmatch Unit 1 see below Result Comment: Compatible LAB UNIT2(LOINC) Xmatch Unit 2 see below Result Comment: Compatible Performed By: #### RBCPS #### [place] [id number] HGB Collected: 07/07/2018 Status: F Source: [facility] 10:50 AM HEALTH SYSTEM REPOSITORY TYPE CODE TESTS RESULT OUT OF RANGE REFERENCE UNITS LAB HGBI(LOINC) 13.7-17.5 g/dL Low alert Hgb 5.9 Result Comment: Repeated AND verified Performed By: #### HGBI #### [place] [id number] HGB Collected: 07/07/2018 Status: F Source: [facility] 3:00 AM HEALTH SYSTEM REPOSITORY TYPE CODE TESTS RESULT OUT OF RANGE REFERENCE UNITS LAB HGBI(LOINC) 13.7-17.5 g/dL Low Hgb 7.1 Performed By: #### HGBI #### [place] [id number] HGB Collected: 07/06/2018 Status: F Source: [facility] 9:40 PM HEALTH SYSTEM REPOSITORY TYPE CODE TESTS RESULT OUT OF RANGE REFERENCE UNITS LAB HGBI(LOINC) 13.7-17.5 g/dL Low Hgb 7.5 Performed By: #### HGBI #### [place] [id number] CONSULT PROG Observed: 07/06/2018 Status: COMPLETED Source: [facility] 4:48 PM CLINIC OTHER CAMPUS REPOSITORY HNO ID: [id number] Author: Tom Magallanes Service: Gastroenterology Author Type: Physician Type: Consult Progress Note Filed: 07/06/2018 4:51 PM Note Text: SUBJECTIVE: Francisca Velasquez was seen in follow up regarding possible GI bleed He had a few episodes of dark red stool yesterday after his EGD. No further melena or hematochezia today. No abdominal pain. No vomiting. He had CT abdomen and RBC tagged scan which were negative. Current Facility-Administered Medications: [START ON 07/07/2018] pantoprazole 40 mg injection (PROTONIX) 40 mg INTRAVENOUS DAILY (6 AM) tamsulosin ER 0.4 mg cap(s) (FLOMAX) 0.4 mg ORAL DAILY potassium chloride 80-120 mEq oral liquid 80-120 mEq ORAL/FEEDING TUBE PRN potassium chloride iv piggyback 20 mEq/100 mL 20 mEq INTRAVENOUS PRN magnesium sulfate in water 2 g in sterile water 50 ml 2 g INTRAVENOUS PRN sodium glycerophosphate 45 mmol in NaCl 0.9% 250 mL (GLYCOPHOS) 45 mmol INTRAVENOUS PRN calcium gluconate 4 g in NaCl 0.9% 250 mL 4 g INTRAVENOUS PRN lactated ringers infusion 100 mL/hr INTRAVENOUS CONTINUOUS ciprofloxacin 400 mg in D5W 200 mL (CIPRO) 400 mg INTRAVENOUS q 12 H perflutren lipid microspheres 1.1 mg/mL 1.3 mL injection (DEFINITY) 1.3 mL INTRAVENOUS DIRECTED PRN iv contrast (radiology procedure) INTRAVENOUS DIRECTED PRN And enteric contrast (radiology procedure) ORAL DIRECTED PRN ALLERGIES Allergen Reactions - Penicillin Anaphylaxis Interim Labs and/or Imaging: Most recent labs Most recent imaging HGB (g/dL) Date Value 07/06/2018 7.9 Hematocrit (%) Date Value 07/06/2018 23.7 WBC (thou/cmm) Date Value 07/06/2018 12.12 Lab Results Component Value Date TBILI 0.7 07/05/2018 CREAT 1.06 07/06/2018 INR 1.01 07/05/2018 ALB 2.1 (L) 07/05/2018 ALKPHOS 42 (L) 07/05/2018 AST 36 07/05/2018 ALT 23 07/05/2018 TPROT 4.4 (L) 07/05/2018 Endoscopic Procedures: EGD yesterday REVIEW OF SYSTEMS: GASTROINTESTINAL: SEE ABOVE CARDIOVASCULAR: NONE RESPIRATORY: NONE PHYSICAL EXAMINATION: BP 115/59 Pulse 96 Temp (Src) 99.1 (Axillary) Resp 21 Ht 5' 11 (1.80m) Wt 199 lb 1.2 oz (90.3kg) SpO2 96% BMI 27.78 kg/(m2). GENERAL APPEARANCE: Well appearing, alert, in no acute distress, well-hydrated, well nourished. SKIN: Skin color, texture, turgor normal, no suspicious rashes or lesions. EYES: Anicteric sclera. Pupils are equally round and reactive to light. Extraocular movements are intact. LUNGS: Lungs clear to auscultation. No wheezing, rhonchi, rales. HEART: RRR without murmur, gallop, or rubs. No ectopy. ABDOMEN: Abdomen soft, non-tender, non distended. Bowel sounds normal. No masses, ascites or hepatosplenomegaly. PLAN: 62M with hx of UC x 30yrs, TIA (on ASA, Plavix) presenting with melena progressing to BRBPR starting yesterday and resulting in syncope. CT brain normal. Hb 9.3 on admission with tachycardia but normal BP. Currently in ICU. - Hold Plavix and ASA - EGD done and mostly normal. CT abdo and RBC tagged scan unremarkable CRP and lactate mostly normal. - Will need colonoscopy given history of UC. Plan for Sunday as he is currently stable. Keep on clear liquid diet. We'll start prep Sunday afternoon - He can be moved to [facility] [place] when stable. Tom Magallanes MD MPH [facility] HEMOGRAM Collected: 07/06/2018 Status: F Source: [facility] 3:00 PM HEALTH SYSTEM REPOSITORY TYPE CODE TESTS RESULT OUT OF REFERENCE UNITS RANGE LAB WBC(LOINC) 4.23-9.07 thou/cmm High WBC 12.12 LAB RBC(LOINC) 4.63-6.08 mil/cmm Low RBC 2.65 LAB HGB(LOINC) 13.7-17.5 g/dL Low Hgb 7.9 LAB HCT(LOINC) 40.1-51.0 % Low Hct 23.7 LAB MCV(LOINC) 83.2-95.6 fl MCV 89.4 LAB MCH(LOINC) 25.7-32.2 pg MCH 29.8 LAB MCHC(LOINC) 32.3-36.5 % MCHC 33.3 LAB RDW(LOINC) 11.6-14.4 % High RDW 14.9 LAB RDWSD(LOINC 36.1-45.8 fl ) High RDW SD 48.3 LAB PLT(LOINC) 141-365 thou/cmm Platelet 143 LAB MPV(LOINC) 8.7-12.0 fl MPV 9.8 Performed By: #### CBC1 #### [facility] [address] [place] [address] ABDOMEN 1 VIEW Observed: 07/06/2018 Status: F Source: [facility] 1:45 PM HEALTH SYSTEM REPOSITORY Performed at [facility] APPROVED BY: Sanjeev Griffith MD EXAM TITLE: ABDOMEN 1 VIEW DATE: 07/06/2018 13:31 COMPARISON: CT scan of the abdomen and pelvis from July 05, 2018 CLINICAL INDICATION/HISTORY: The patient is a 62-year-old male with acute gastrointestinal bleeding who was found to have an obstructing right upper ureteral stone on CT scan of the abdomen and pelvis. TECHNIQUE: A single view of the abdomen is presented. FINDINGS: No abnormality dilated bowel loops are noted. Residual contrast from the CT scan is identified throughout the colon as well as the bladder and hydronephrotic right kidney. Contrast abruptly ends in the upper ureter at the site of the stone just to the right of the L3-4 disc space. There is no other abnormal calcifications. The bony structures appear intact. IMPRESSION: There continues to be an obstruction of the upper right ureter with proximal hydronephrosis with residual contrast opacifying the dilated right collecting system. Abdominal bowel gas pattern is normal. PROGRESS Observed: 07/06/2018 Status: COMPLETED Source: [facility] 1:17 PM CLINIC OTHER CAMPUS REPOSITORY HNO ID: [id number] Author: Luis Felipe Burch Jr. Service: Critical Care Author Type: Physician Type: Progress Notes Filed: 07/06/2018 9:36 PM Note Text: Medical Intensive Care Progress Note July 06, 2018 Patient Name: Francisca Velasquez Patient [facility]: [id number]* Admission Date: 07/05/2018 Length of Stay: 1 Primary Service: Medical Intensive Care Interval History for 07/06/18: Patient seen and examined in the AM. Patient was doing well this morning. Did have bloody BM last night and Hb dropped, so was transfused. EGD did not reveal anything so would need colonoscopy. Will call GI to see when they would want to do it. Bleeding scan last night was negative. Abdominal CT + for right ureteral stone urology recommended outpatient follow up. Cleared from trauma Review of Systems Gastrointestinal: Positive for blood in stool. Objective Present Condition: 07/06/18 0900 07/06/18 1000 07/06/18 1100 07/06/18 1138 BP: 154/72 152/71 121/83 125/65 Pulse: 106 101 90 87 Resp: 14 14 19 Temp: 36.7 ?C (98.1 ?F) 36.9 ?C (98.4 ?F) 37 ?C (98.6 ?F) 36.2 ?C (97.2 ?F) TempSrc: Axillary Axillary Axillary SpO2: 99% 96% 97% 93% Weight: Height: Physical Exam Constitutional: He is oriented to person, place, and time. Cardiovascular: Normal rate and regular rhythm. Pulmonary/Chest: Breath sounds normal. Abdominal: Bowel sounds are normal. He exhibits no distension. There is no tenderness. Musculoskeletal: He exhibits no edema. Neurological: He is alert and oriented to person, place, and time. Current Facility-Administered Medications: [START ON 07/07/2018] pantoprazole 40 mg injection (PROTONIX) 40 mg INTRAVENOUS DAILY (6 AM) Ke (Res) Atassi tamsulosin ER 0.4 mg cap(s) (FLOMAX) 0.4 mg ORAL DAILY Julian (Res) Parveen potassium chloride 80-120 mEq oral liquid 80-120 mEq ORAL/FEEDING TUBE PRN Jaz Katelynnyadarshini (Res) Vipin potassium chloride iv piggyback 20 mEq/100 mL 20 mEq INTRAVENOUS PRN Jaz Priyadarshini (Res) Vipin magnesium sulfate in water 2 g in sterile water 50 ml 2 g INTRAVENOUS PRN Jaz Priyadarshini (Res) Vipin sodium glycerophosphate 45 mmol in NaCl 0.9% 250 mL (GLYCOPHOS) 45 mmol INTRAVENOUS PRN Jaz Priyadarshini (Res) Vipin Last Rate: 31.25 mL/hr at 07/05/18 0606 45 mmol at 07/05/18 0606 calcium gluconate 4 g in NaCl 0.9% 250 mL 4 g INTRAVENOUS PRN Jaz Linares (Res) Vipin lactated ringers infusion 100 mL/hr INTRAVENOUS CONTINUOUS Jaz Linares (Res) Vipin Last Rate: 100 mL/hr at 07/06/18 1138 100 mL/hr at 07/06/18 1138 ciprofloxacin 400 mg in D5W 200 mL (CIPRO) 400 mg INTRAVENOUS q 12 H Ke (Res) Atassi Last Rate: 200 mL/hr at 07/06/18 0915 400 mg at 07/06/18 0915 perflutren lipid microspheres 1.1 mg/mL 1.3 mL injection (DEFINITY) 1.3 mL INTRAVENOUS DIRECTED PRN Ke (Res) Atassi iv contrast (radiology procedure) INTRAVENOUS DIRECTED PRN Elias (Res) MD Daniele And enteric contrast (radiology procedure) ORAL DIRECTED PRN Elias (Res) MD Daniele Labs: CBC: Recent Labs 07/06/18 1000 07/06/18 0325 07/05/18 2156 07/05/18 1600 07/05/18 0900 07/05/18 0330 WBC -- -- -- -- -- 17.10* HB 8.3* 8.9* 7.0* 7.5* 9.3* 10.6* HCT -- 26.4* -- -- -- 33.0* PLT -- -- -- -- -- 246 MCV -- -- -- -- -- 90.2 COAG: Recent Labs 07/05/18 0420 INR 1.01 BMP: Recent Labs 07/06/18 0325 07/05/18 0330 GLUC 96 115* NA 143 144 K 3.7 4.0 CHLOR 114* 117* CO2 21 19* ANION 12 12 BUN 24* 34* CREAT 1.06 1.08 CHEM: Recent Labs 07/06/18 0325 07/05/18 1600 07/05/18 0330 ALB -- 2.1* -- TPROT -- 4.4* -- CA 6.8* -- 7.3* MG -- -- 2.0 HEPATIC: Recent Labs 07/05/18 1600 ALKPHOS 42* ALT 23 AST 36 TBILI 0.7 URINALYSIS: Recent Labs 07/05/18 0940 SPGR 1.026 UGLUC NEGATIVE UBILI NEGATIVE UKET NEGATIVE UPROT NEGATIVE UROBIL 0.2 UWBC 13.7* CARDIAC: No results for input(s): CKTEST, CKMB, CKMBP in the last 168 hours.TROPONIN@:8,No results found for: BNP:8)@ Intake/Output Summary (Last 24 hours) at 07/06/18 1318 Last data filed at 07/06/18 1147 Gross per 24 hour Intake 5270 ml Output 1200 ml Net 4070 ml Serum creatinine: 1.06 mg/dL 07/06/18 0325 Estimated creatinine clearance: 77.9 mL/min Subjective No past medical history on file. No current facility-administered medications on file prior to encounter. No current outpatient prescriptions on file prior to encounter. Assessment/Plan Reviewed in its entirety and amended as appropriate on 07/06/18 Gastrointestinal - Acute blood loss anemia - 2/2 to GI bleed, GI consulted - Hx of UC - Transfused 2 U of packed RBCs - Hb q6, transfuse <7 - Hold plavix and ASA - INR wnl ? Hematologic - Acute blood loss anemia - Given 3 U of packed RBCs here, and 2 U at OSH - Hb increased at 10.3 - Leukocytosis at 17.10, likely reactive/ UTI ? Neuro - Syncope most Likely 2/2 to being hypotensive - CT negative - TIA last month, on Plavix and ASA, now held - Trauma consulted, for unwitnessed fall, cleared off ? Infectious - UTI - treating with ciprofloxacin, penicillin allergy - Urine cx to follow ? Signed: Caio Meza MD, PGY-1 Pager: [phone] Date: July 06, 2018 Time: 1:18 PM Recommendations are not finalized until co-signed by Staff physician. [facility] STAFF PHYSICIAN NOTE OF PERSONAL INVOLVEMENT IN CARE I have reviewed the documentation by the resident and I personally participated in the monson components. I have discussed the case and management of the patient's care. The following comments revise or confirm relevant monson components of the note. IMPRESSION: Critical Care Documentation: The patient has the following organ/system impairment(s): Acute blood loss ? 1. Probable lower GI bleed 2. Hx of ulcerative colitis 3. Syncope (unwitnessed) with scalp laceration but no obvious bone or ligamentous injury 4. Lactic acidosis resolved 5. Continued anemia without recurrent bleeding but will observe in ICU and obtain CT abd pelvis 6. Recent TIA and was treated with asa and plavix MMP ? PLAN: Now stable hgb and no recurrent bleeding today Colonoscopy Sunday if bleeding stops and stable over weekend. Hgb q 6 hours overnight and if stable in am, stable to floor Monitor in ICU tonight Discussed with staff/ patient/ family This patient has a high probability of sudden, clinically significant deterioration, which requires the highest level of physician preparedness to intervene urgently. I managed/supervised life or organ supporting interventions that required frequent physician assessment. I devoted my full attention to the direct care of this patient for the amount of time indicated below. Time I spent with family or surrogate(s) is included only if the patient was incapable of providing the necessary information or participating in medical decision making. Time devoted to teaching is not included. Time spent providing critical care services: 40 minutes excluding procedures. SIGNATURE: Luis Felipe Burch Jr, MD [facility] TIME of SERVICE: 9:34 PM CONSULT Observed: 07/06/2018 Status: COMPLETED Source: [facility] 12:40 PM CLINIC OTHER CAMPUS REPOSITORY HNO ID: [id number] Author: Nayely Plascencia Service: Urology Author Type: Physician Type: Consults Filed: 07/07/2018 10:37 AM Note Text: Urology Consultation ADMISSION DATE: 07/05/2018 SERVICE DATE: 07/06/2018 REQUESTING PHYSICIAN: Ric Melgar MD REASON FOR CONSULT: R hydronephrosis with 7 mm stone ASSESSMENT/PLAN: 7 mm proximal R ureteral calculus with hydronephrosis - asymptomatic - No acute inpatient intervention at this time - asymptomatic, normal Cr, UCx no growth - Medical expulsive therapy at this time: continue Flomax, strain urine, treat symptoms - Check KUB - Outpatient follow up with his Urologist in [place] - Call if he develops R flank pain, fevers > 38.5, or concern for sepsis - Will sign off, call with questions HISTORY OF PRESENT ILLNESS: The patient is a 62 year old male with a PMHx of ulcerative colitis, prior hx of nephrolithiasis, known to Urology in [place]. Has had stones treated with ESWL 3-4 years ago, has also passed small stones since then on his own. Presented to ER after he had a syncopal event in his bathroom at home, with associated hematochezia. Patient had a TIA 5 weeks ago and was then started on Plavix. On arrival, he had a CT Abdomen/Pelvis that showed a 7 mm proximal R ureteral calculus with associated R hydronephrosis. Patient denies any R flank pain or abdominal pain. No dysuria, hematuria, incomplete emptying. On Flomax at home. No fevers, chills, nausea or vomiting. PAST MEDICAL HISTORY: No past medical history on file. PAST SURGICAL HISTORY: No past surgical history on file. ALLERGIES: ALLERGIES Allergen Reactions - Penicillin Anaphylaxis HOME MEDICATIONS: Prescriptions Prior to Admission: aspirin 81 mg chewable tablet Take 81 mg by mouth once daily. Disp: Rfl: clopidogrel (PLAVIX) 75 mg tablet Take 75 mg by mouth once daily. Disp: Rfl: tamsulosin ER (FLOMAX) 0.4 mg cap Take 0.4 mg by mouth once daily. Disp: Rfl: magnesium oxide (MAG-OX) 400 mg (241.3 mg magnesium) tablet Take 400 mg by mouth twice daily. Disp: Rfl: atorvastatin (LIPITOR) 40 mg tablet Take 40 mg by mouth daily with dinner. Disp: Rfl: FAMILY HISTORY: No family history on file. Social History: Tobacco Use: Not on file Alcohol Use: Not on file ROS: Constitutional: negative for chills and fevers HEENT: no blurry vision or eye redness Respiratory: negative for hemoptysis and shortness of breath Cardiovascular: syncope Gastrointestinal: hematochezia Genitourinary:negative for dysuria and hematuria Hematologic/lymphatic: negative for bleeding Integumentary: no new bruises or lesions Musculoskeletal:negative for muscle weakness Neurological: negative for coordination problems and seizures All other systems negative PHYSICAL EXAM: VITALS: 07/06/18 0900 07/06/18 1000 07/06/18 1100 07/06/18 1138 BP: 154/72 152/71 121/83 125/65 Pulse: 106 101 90 87 Resp: 14 14 19 Temp: 36.7 ?C (98.1 ?F) 36.9 ?C (98.4 ?F) 37 ?C (98.6 ?F) 36.2 ?C (97.2 ?F) TempSrc: Axillary Axillary Axillary SpO2: 99% 96% 97% 93% Weight: Height: General: Alert, in no acute distress Head: Normocephalic, abrasion to forehead Neck: supple, trachea is midline, no obvious masses Respiratory: normal effort, no audible wheezes Cardiovascular: regular pulse and no cyanosis Musculoskeletal: moving all extremities, normal tone Skin: warm and dry Psych: normal mood and affect, oriented Abdomen: soft, non distended, non tender, no organomegaly, no hernias : No CVA tenderness DATA: LABS: BMP: . Glucose (mg/dL) Date Value 07/06/2018 96 Potassium (mEq/L) Date Value 07/06/2018 3.7 Sodium (mEq/L) Date Value 07/06/2018 143 Chloride (mEq/L) Date Value 07/06/2018 114 CO2 (mEq/L) Date Value 07/06/2018 21 Creatinine (mg/dL) Date Value 07/06/2018 1.06 BUN (mg/dL) Date Value 07/06/2018 24 Anion Gap (no units) Date Value 07/06/2018 12 Calcium (mg/dL) Date Value 07/06/2018 6.8 CBC: HGB (g/dL) Date Value 07/06/2018 8.3 Hematocrit (%) Date Value 07/06/2018 26.4 WBC (thou/cmm) Date Value 07/05/2018 17.10 Platelet Count (thou/cmm) Date Value 07/05/2018 246 Urinalysis: Specific [place], Ur Date Value Ref Range Status 07/05/2018 1.026 1.005 - 1.030 Final Glucose, Urine Date Value Ref Range Status 07/05/2018 NEGATIVE Negative mg/dL Final Bilirubin, Urine Date Value Ref Range Status 07/05/2018 NEGATIVE Negative Final Ketones, Urine Date Value Ref Range Status 07/05/2018 NEGATIVE Negative mg/dL Final Protein, Urine Date Value Ref Range Status 07/05/2018 NEGATIVE Negative mg/dL Final Urobilinogen, Urine Date Value Ref Range Status 07/05/2018 0.2 0.0 - 1.0 EU/dL Final Nitrites Urine Date Value Ref Range Status 07/05/2018 NEGATIVE Negative Final WBC, Urine Date Value Ref Range Status 07/05/2018 13.7 (H) 0.0 - 5.0 /hpf Final Urine Culture: Urine Culture (no units) Date Value 07/05/2018 No growth RADIOLOGY: CT ABD/PEL 07/05/2018 IMPRESSION: 1. ?Moderate right hydroureteronephrosis secondary to a proximal/mid right ureteral stone measuring 7 mm. 2. ?Study is nondiagnostic for GI bleed given the presence of oral contrast. ASSESSMENT/PLAN: 62 year old male with 7 mm R proximal ureteral stone, hydronephrosis - Asymptomatic, afebrile, Cr wnl, UCx no growth - KUB - Strain all urine - MET with Flomax, pain meds if needed - UCx negative for infection - Outpatient follow up for stone management with his Urologist in [place] - No further intervention, call if patient becomes febrile > 38.5, hypotensive (<90), or concern for sepsis from stone - D/w Dr. Plascencia Thank you for allowing me to participate in the care of your patient SIGNATURE: Julian Saini MD PATIENT NAME: Francisca Velasquez DATE: 07/06/2018 TIME: 12:40 PM PAGER: [phone] Attending Note I evaluated the patient and personally participated in the monson components. I agree with the resident's findings and plan as documented and have discussed the case and management of the patient's care with the resident. Signature: Nayely Plascencia DO, MBA Date: 07/07/2018 Time: 10:37 AM HGB Collected: 07/06/2018 Status: F Source: [facility] 10:00 AM HEALTH SYSTEM REPOSITORY TYPE CODE TESTS RESULT OUT OF RANGE REFERENCE UNITS LAB HGBI(LOINC) 13.7-17.5 g/dL Low Hgb 8.3 Performed By: #### HGBI #### [facility] [address] [place] [address] HGB Collected: 07/06/2018 Status: F Source: [facility] 3:25 AM HEALTH SYSTEM REPOSITORY TYPE CODE TESTS RESULT OUT OF RANGE REFERENCE UNITS LAB HGBI(LOINC) 13.7-17.5 g/dL Low Hgb 8.9 Performed By: #### HGBI #### [facility] [address] [place] [address] HCT Collected: 07/06/2018 Status: F Source: [facility] 3:25 AM HEALTH SYSTEM REPOSITORY TYPE CODE TESTS RESULT OUT OF RANGE REFERENCE UNITS LAB HCTI(LOINC) 40.1-51.0 % Low Hct 26.4 Performed By: #### HCTI #### [place] [address] BASIC PANEL Collected: 07/06/2018 Status: F Source: [facility] 3:25 AM HEALTH SYSTEM REPOSITORY TYPE CODE TESTS RESULT OUT OF REFERENCE UNITS RANGE LAB NA(LOINC) 136-145 mEq/L Sodium Blood 143 LAB K(LOINC) 3.5-5.1 mEq/L Potassium Blood 3.7 LAB CL(LOINC) 98-107 mEq/L Chloride High Blood 114 LAB CO2(LOINC) 21-32 mEq/L CO2 Blood 21 LAB GLU(LOINC) 70-99 mg/dL Glucose Blood 96 LAB BUN(LOINC) 7-18 mg/dL BUN High Blood 24 LAB CREA(LOINC 0.67-1.17 mg/dL ) Creatinine Blood 1.06 LAB CA(LOINC) 8.5-10.1 mg/dL Low Calcium Blood 6.8 LAB ANGAP(LOIN 8-16 C) Anion Gap 12 Performed By: #### P8 #### [place] [address] ACUTE GASTRIC BLOOD Observed: 07/05/2018 Status: F Source: [facility] LOSS STUDY 11:39 PM HEALTH SYSTEM REPOSITORY Performed at [facility] APPROVED BY: RUSLAN OJEDA MD Technique: Nuclear medicine GI bleeding study. The patient received a total of 20 mCi of technetium 99 M labeled RBC (UltraTag) intravenously. Sequential images are obtained up to one hour. COMPARISON: No prior studies are available for comparison CLINICAL INDICATION:GI bleed. Adult inpatient presented with rectal bleeding and bright blood since yesterday. RESULTS: Minimum penile activity noted. Physiologic distribution of the radiotracer. No scintigraphic evidence of active GI bleeding. IMPRESSION: No evidence of active GI bleeding. PROGRESS Observed: 07/05/2018 Status: COMPLETED Source: [facility] 11:27 PM CLINIC OTHER CAMPUS REPOSITORY O ID: [id number] Author: Bon Hunter (Rt) Service: Radiology Author Type: Tromper Type: Progress Notes Filed: 07/05/2018 11:28 PM Note Text: RADIOLOGY SERVICE PROGRESS NOTE SERVICE DATE: 07/05/2018 SERVICE TIME: 11:27 PM PATIENT IDENTITY VERIFICATION COMPLETED USING TWO (2) METHODS: Patient confirmed name and Date of verbally. PATIENT GENDER DATA: .male ALLERGIES: Reviewed and unchanged MEDICATIONS REVIEWED: Yes PATIENT RELEVANT IMPLANT DATA REVIEWED: Not Applicable CREATININE: Creatinine Date Value Ref Range Status 07/05/2018 1.08 0.67 - 1.17 mg/dL Final P.O.C.T. RESULTS: N/A July 05, [address] PERFORMED: No IV SITE: Inpatient - refer to [facility] documentation POST EXAM PIV STATUS: Left in for next appointment PROCEDURE TYPE: NM INJECT: GI BLEED. 20 mCi Tc99m ULTRATAG. No other medications given.. ADMINISTRATION TIME: 11:20PM PATIENT DISCHARGED TO: Patient taken to IP transport area for return to [facility]/ICU/ED. A Diagnostic radioactive procedure has taken place, with no further precautions necessary other than routine body substance precautions. More information regarding radiation safety can be found using this link: [email or web address] SIGNATURE: RT Elsa PATIENT NAME: Francisca Velasquez DATE: July 05, 2018 TIME: 11:27 PM PAGER/CONTACT #: RBC PRODUCTS Collected: 07/05/2018 Status: F Source: [facility] 10:30 PM HEALTH SYSTEM REPOSITORY TYPE CODE TESTS RESULT OUT OF REFERENCE UNITS RANGE LAB UNIT1(LOINC ) Xmatch Unit 1 see below Result Comment: Compatible LAB UNIT2(LOINC) Xmatch Unit 2 see below Result Comment: Compatible Performed By: #### RBCPS #### [facility] [address] [place], [place] [address] HGB Collected: 07/05/2018 Status: F Source: [facility] 9:56 PM HEALTH SYSTEM REPOSITORY TYPE CODE TESTS RESULT OUT OF RANGE REFERENCE UNITS LAB HGBI(LOINC) 13.7-17.5 g/dL Low alert Hgb 7.0 Performed By: #### HGBI #### [facility] [address] [place], [place] [address] CT ABDOMEN AND PELVIS Observed: 07/05/2018 Status: F Source: [facility] WITH CONTRAST 9:43 PM HEALTH SYSTEM REPOSITORY Performed at [facility] APPROVED BY: HAWA THORNTON MD EXAMINATION: CT ABDOMEN AND PELVIS WITH IV CONTRAST CLINICAL HISTORY: TECHNIQUE: CT of the abdomen and pelvis was performed using standard technique, scanning from just above the dome of the diaphragm to the symphysis pubis. MQ: CTAP_3 Contrast: 1 50 mL Omnipaque 300, [address] Radiation dose: Integrated Dose-length product (DLP) for this visit = 345 mGy*cm. CT Dose Reduction Employed: Automated exposure control COMPARISON: None. RESULT: Liver: 3 mm hypodensity in segment 2 is too small characterize. Biliary: No bile duct dilation. Cholelithiasis. Spleen: No mass. No splenomegaly. Pancreas: No mass or duct dilation. Adrenals: No mass. Kidneys: Nonobstructing left renal calculi measuring up to 5 mm. No left hydronephrosis. Atrophic right kidney. Subcentimeter hypodensities in both kidneys are too small to characterize. Moderate right hydroureteronephrosis secondary to a proximal/mid right ureteral stone measuring 7 mm. GI tract: No dilation or wall thickening. Normal appendix. Diverticulosis without diverticulitis. Lymph nodes: No abdominal or pelvic lymphadenopathy. Mesentery/Peritoneum: No ascites or mass. Retroperitoneum: No mass. Vasculature: The celiac axis and SMA are patent. The portal vein and branches, splenic vein, SMV, and hepatic veins are patent. Arterial atherosclerotic disease without aneurysm. Pelvis: No mass, ascites or fluid collection. Prostatomegaly. Prostate measures 5.6 cm. Area of low density within the prostate may represent sequela of prior intervention. Median lobe hypertrophy. Bones/Soft Tissues: Degenerative changes of the spine. Lower thorax: Unremarkable. IMPRESSION: 1. Moderate right hydroureteronephrosis secondary to a proximal/mid right ureteral stone measuring 7 mm. 2. Study is nondiagnostic for GI bleed given the presence of oral contrast. ABO/RH CONFIRMATION Collected: 07/05/2018 Status: F Source: [facility] 6:45 PM HEALTH SYSTEM REPOSITORY TYPE CODE TESTS RESULT OUT OF REFERENCE UNITS RANGE LAB ABO(LOINC) A ABO Group LAB GAMMA FACILITIES OPERATOR(LOINC) RH Type Negative Performed By: #### ABOCK #### [place] [address] EKG (AK,AV,EU,FV,HL,JERMAIN,MM,SP) Observed: Status: F Source: [facility] 07/05/2018 5:49 PM CLINIC OTHER CAMPUS REPOSITORY NAME : FRANCISCA VELASQUEZ PID : [id number] : 1955 Gender : Male Race : ORD : [id number] Procedure Date : Jul 05 2018 17:49 Edit Date : Jul 06 2018 17:04 Diagnosis:SINUS TACHYCARDIA POSSIBLE INFERIOR INFARCT , AGE UNDETERMINED ABNORMAL ECG NO PREVIOUS ECGS AVAILABLE Confirmed by MD Hernandez Vinayak A. ([id number]) on 07/06/2018 5:04:06 PM Ventricular Rate : 120 BPM Atrial Rate : 120 BPM P-R Interval : 152 ms QRS Duration : 86 ms Q-T Interval : 310 ms QTC Calculation(Bezet) : 438 ms P [place] : 53 degrees R [place] : -2 degrees T [place] : 51 degrees Test Reason : Syncope Location : 48 : [facility] 4816 Overread By : MD Hernandez Vinayak A. Editted By : MD Hernandez Vinayak A. Referred By : RIC MELGAR Acquired by : Mary BOYER RBC PRODUCTS Collected: 07/05/2018 Status: F Source: [facility] 5:40 PM HEALTH SYSTEM REPOSITORY TYPE CODE TESTS RESULT OUT OF REFERENCE UNITS RANGE LAB UNIT1(LOINC ) Xmatch Unit 1 see below Result Comment: Compatible Performed By: #### RBCPS #### [place] [address] TYPE AND SCREEN Collected: 07/05/2018 Status: F Source: [facility] 5:40 PM HEALTH SYSTEM REPOSITORY TYPE CODE TESTS RESULT OUT OF REFERENCE UNITS RANGE LAB ABO(LOINC) A ABO Group LAB GAMMA FACILITIES OPERATOR(LOINC ) RH Type Negative LAB ABSCR(LOIN C) Antibody NEGATIVE Screen LAB BBCMT(LOIN C) Comment See Below Result Comment: Screen &/or Xmatch expires in 3 days at 12 midnight. Redraw patient at that time. Performed By: #### T&S #### [place] [address] HGB Collected: 07/05/2018 Status: F Source: [facility] 4:00 PM HEALTH SYSTEM REPOSITORY TYPE CODE TESTS RESULT OUT OF RANGE REFERENCE UNITS LAB HGBI(LOINC) 13.7-17.5 g/dL Low Hgb 7.5 Performed By: #### HGBI #### [place] [address] CRP Collected: 07/05/2018 Status: F Source: [facility] 4:00 PM HEALTH SYSTEM REPOSITORY TYPE CODE TESTS RESULT OUT OF RANGE REFERENCE UNITS LAB CRP3(LOINC) 0.00-0.30 mg/dL High CRP 0.83 Performed By: #### CRP3 #### [place] [address] LACTIC ACID Collected: 07/05/2018 Status: F Source: [facility] 4:00 PM HEALTH SYSTEM REPOSITORY TYPE CODE TESTS RESULT OUT OF REFERENCE UNITS RANGE LAB LAC(LOINC) 0.4-2.0 mEq/L Lactic Acid 1.3 Performed By: #### LAC #### [place] [address] HAPTOGLOBIN Collected: 07/05/2018 Status: F Source: [facility] 4:00 PM HEALTH SYSTEM REPOSITORY TYPE CODE TESTS RESULT OUT OF REFERENCE UNITS RANGE LAB HAP(LOINC) 30.0-200.0 mg/dL Haptoglobin 55.1 Performed By: #### HAP #### [place] [address] LD,TOTAL BLOOD Collected: 07/05/2018 Status: F Source: [facility] 4:00 PM HEALTH SYSTEM REPOSITORY TYPE CODE TESTS RESULT OUT OF RANGE REFERENCE UNITS LAB LDH(LOINC) 84-246 U/L LD,Total 140 Blood Performed By: #### LDH #### [facility] [address] [place] [address] HEPATIC PANEL Collected: 07/05/2018 Status: F Source: [facility] 4:00 PM HEALTH SYSTEM REPOSITORY TYPE CODE TESTS RESULT OUT OF REFERENCE UNITS RANGE LAB ALB(LOINC) 3.4-5.0 g/dL Low Albumin Blood 2.1 LAB ALT(LOINC) 12-78 U/L ALT-SGPT Blood 23 LAB ALKP(LOINC 46-116 U/L ) Low Alk Phosphatase 42 LAB TP(LOINC) 6.4-8.2 g/dL Low Total Protein 4.4 LAB AST(LOINC) 9-37 U/L AST-SGOT Blood 36 LAB BILIT(LOIN 0.2-1.0 mg/dL C) Total Bilirubin 0.7 LAB DBIL(LOINC 0.00-0.20 mg/dL ) Direct Bilirubin 0.17 Performed By: #### HEPAP #### [facility] [address] [place] [address] OPERATIVE NO Observed: 07/05/2018 Status: COMPLETED Source: [facility] 2:49 PM CLINIC OTHER CAMPUS REPOSITORY HNO ID: [id number] Author: Tom Magallanes Service: Gastroenterology Author Type: Physician Type: Operative Report Filed: 07/05/2018 3:26 PM Note Text: OPERATIVE/PROCEDURE REPORT LOG ID: [id number] Surgery/Procedure Date: 07/05/2018 Incision/Procedure Start Time: 3:11 PM Incision Close/Procedure End Time: 3:17 PM Surgeon(s)/Proceduralist(s) and Loss Prevention Auditor(s): Surgeon(s) and Role: * Tom Magallanes - Primary No Additional Staff Procedure(s): Esophagogastroduodenoscopy (EGD) with biopsy Anesthesia: Versed 2mg, Fentanyl 50mcg, Benadryl 50mcg IV Brief History: 62M with hx of UC x 30yrs, TIA (on ASA, Plavix) presenting with melena progressing to BRBPR starting yesterday and resulting in syncope. CT brain normal. Hb 9.3 on admission with tachycardia but normal BP. Currently in ICU. The risks, benefits and alternatives of the procedure were explained to the patient/responsible accompanying adult. This includes, but is not limited to, bleeding, infection and a 1:1000 risk of perforation. There is also a small risk of allergic reaction(s) due to sedatives, need for hospitalization, need for transfusions, need for surgery, and likelihood of missing a polyp or neoplastic lesion. The patient understands this and is amenable to proceeding. Procedure Details: The patient was placed in the left lateral decubitus position. A bite block was placed and medications administered as above. The Olympus gastroscope was used to intubate the oropharynx and esophagus with ease. We proceeded down to the second part of the duodenum. The duodenal mucosa and bulb appeared normal. We then withdrew into the stomach and visualized a normal antrum and body. Biopsies were taken to rule out H. Pylori. Retroflexion was performed and this showed a normal fundus and cardia. The squamocolumnar junction, GE junction and esophagus appeared normal apart from a 2-3cm sliding HH. The scope was then withdrawn and the patient tolerated the procedure well. Pre-Op/Pre-Procedure Diagnosis: Melena Post-Op/Post-Procedure Diagnosis: Normal gastroscopy apart from 2-3cm sliding hiatus hernia Biopsies taken to rule out H. Pylori Specimens: See above EBL: None Complications: None Recommendations: F/U pathology Given BRBPR and hx of UC, will arrange for c-scope on Sunday Check CRP and lactate If he decompensates, can do CT abdo to look for cause of bleeding and may need to expedite c-scope on weekend. Will follow for now The primary surgeon/proceduralist performed the entire procedure. Tom Magallanes MD MPH [facility] SIGNATURE: Tom Magallanes MD MPH [facility] PATIENT NAME: Francisca Velasquez DATE: July 05, 2018 TIME: 3:22 PM PAGER/CONTACT #: [phone] HISTORY PHYSICAL Observed: 07/05/2018 Status: COMPLETED Source: [facility] 1:55 PM CLINIC OTHER CAMPUS REPOSITORY HNO ID: [id number] Author: Diego Fowler Service: Trauma Author Type: Physician Type: HANDP Filed: 07/06/2018 11:17 AM Note Text: TRAUMA HANDP [facility] ARRIVAL DATE: 07/05/2018 ARRIVAL TIME: 031 CATEGORY: Level 3 INJURY DATE: 07/05/2018 INJURY TIME: NA Subjective This is a 62 year old white male seen as a Level III trauma consult in the MICU for evaluation of potential injuries sustained during a fall at his residence that occurred last night. Patient currently admitted to MICU for GI bleed. Patient has a history of UC with past GI bleeds currently taking Plavix and ASA for TIAs. Patient describes having had dark bloody bowel movements x 2 last night. He got up in the middle of the night to use the restroom and had another bowel movement consisting of bright red blood. Patient notes that he felt dizziness when attempted to stand from the toilet but that feeling shortly passed. He notes falling asleep in the spare bedroom and yet again waking up to use the restroom. Patient notes LOC upon standing and attempting to ambulated causing him to hit his head. He cannot recall all of the events of the fall. He notes waking up to his performing chest compressions on his. EMS took him to [facility] where initial workup was completed. Per MICU note, CT Brain and C-spine negative for acute injury. Currently patient is complaining of no pain. Denies [place], extremity weakness or paresthesias. Notes some numbness in the index fingers and thumbs bilaterally, chronic per patient description. Denies CP, SOB, ABD pain, current N/V. No focal musculoskeletal/joint complaints.GCS at Scene was 15. HPI/CHIEF COMPLAINT: Fall with +LOC BRIEF DESCRIPTION OF INJURIES: Left anterior scalp/forehead abrasion LAST FLUIDS/MEAL: NA CODE STATUS: Not discussed ALLERGIES Allergen Reactions - Penicillin Anaphylaxis Prescriptions Prior to Admission: aspirin 81 mg chewable tablet Take 81 mg by mouth once daily. Disp: Rfl: clopidogrel (PLAVIX) 75 mg tablet Take 75 mg by mouth once daily. Disp: Rfl: tamsulosin ER (FLOMAX) 0.4 mg cap Take 0.4 mg by mouth once daily. Disp: Rfl: magnesium oxide (MAG-OX) 400 mg (241.3 mg magnesium) tablet Take 400 mg by mouth twice daily. Disp: Rfl: atorvastatin (LIPITOR) 40 mg tablet Take 40 mg by mouth daily with dinner. Disp: Rfl: DATE OF LAST TETANUS: NA There is no immunization history on file for this patient. No past medical history on file. No past surgical history on file. Social History Marital status: Unknown Spouse name: Years of education: Number of children: Social History Main Topics Drug use: Unknown ROS: Is the patient having any pain? No 0 on a scale of 0 to 10 Constitutional: Negative Eye/Ear/Nose: Negative Respiratory: Negative Cardiovascular: Negative GI/Liver/Biliary: Positive for hematochezia and melena Genitourinary: Negative Psychiatric: Negative Neurologic: Negative Musculoskeletal: Negative Integument: Negative Endocrine: Negative Heme/Lymph: Negative Objective PRIMARY SURVEY AIRWAY: Patent BREATHING: Breath sounds equal CIRCULATION: PT/DP 2+, Radials 2+ DISABILITY: Eye: 4=Spontaneous Verbal: 5=Oriented and Converses Motor: 6=Obeys Commands Total GCS: 15=4 Resp Rate: 10 to 29=4 Syst BP: > than 89=4 REVISED TRAUMA SCORE: 12 EXPOSE / ENVIRONMENT: Warm Blankets PROCEDURES: NONE SECONDARY SURVEY VITALS: BP 119/68 Pulse (!) 127 Temp 36.5 ?C (97.7 ?F) (Axillary) Resp 12 Ht 180.3 cm (5' 11) Wt 90.3 kg (199 lb 1.2 oz) SpO2 96% BMI 27.77 kg/m? NEURO: Alert AND Oriented x 3, GCS 15, Cranial Nerves II-XII Intact, Moves All Extremities, Strength Symmetrical, No Sensory Deficits HEENT: Eyes: PERRL, conjunctiva/corneas without lesions, EOM intact, Ears: Canals without blood or CSF drainage, TMs clear, external ears without lacerations, Nose: Septum midline, no crepitus with motion, Throat: Oral mucosa without lacerations, teeth in place, tongue without lacerations, Longitudinal superficial scalp abrasion over the left forehead without active drainage. No evidence of foreign body. NECK: No midline pain with palpation, No pain with active ROM, No lacerations/wounds, No JVD, Trachea midline RESPIRATORY: No abrasions or contusions, No crepitus, No TTP, Equal Excursion CARDIOVASCULAR: S1S2 with no R/M/G, Radial pulse present bilaterally, Femoral pulse present bilaterally, Dorsalis pulse present bilaterally, tachycardic ABDOMEN: Non-distended, No scars or lacerations, Non-tenderness or peritoneal signs, No masses or organomegaly, Bowel sounds present all quads PELVIC/PERINEAL: Pelvis stable to palpation BACK/SPINE: Thoracolumbar spinal column non-tender, No step off or deformity noted, No external injury noted EXTREMITIES: PALACIOS, no edema, equal strength and sensation bilaterally RADIOLOGICAL/OTHER TEST DATA: CT Brain and C-spine: Per MICU note, CT Brain and C-spine negative for acute injuries. Will confirm with official reports. PRIOR TO ARRIVAL: N/A IMAGES As Above LABS: CBC, Coags, BMP, Mg, Phos Recent Labs 07/05/18 0900 07/05/18 0420 07/05/18 0330 WBC -- -- 17.10* HB 9.3* -- 10.6* HCT -- -- 33.0* PLT -- -- 246 INR -- 1.01 -- NA -- -- 144 K -- -- 4.0 CHLOR -- -- 117* CO2 -- -- 19* BUN -- -- 34* CREAT -- -- 1.08 GLUC -- -- 115* CA -- -- 7.3* MG -- -- 2.0 P -- -- 2.2* Assessment/Plan DIAGNOSES: 1.) Left anterior scalp/forehead abrasion Medication and Non-Pharmacologic VTE Prophylaxis/Anticoagulants 07/05/18329 vte pharmacologic prophylaxis contraindicated ([place] 07/05/18329 pneumatic compression stockings ([place] 07/05/18329 activity - mobilize patient ([place] TREATMENT/EVALUATION PLANS: 62-year-old male with history of lower GI bleed and syncope s/p fall with forehead abrasion - Patient evaluated by myself and trauma attending Dr. Fowler - Scalp abrasion superficial - no indication for repair - Per MICU documentation, no evidence of intracranial bleed on CTH; CT C-Spine with no acute injuries - C-collar cleared - Neurovascular exam unremarkable - No concern for further traumatic injuries per clinical exam - Med management per primary - Trauma to S/O I saw and evaluated the patient. Discussed with the resident and agree with resident's findings and plan as documented in the resident's note. In examined at the time of the note on the at 12:30. He was alert and oriented. He denied any neck pain. C-collar was cleared at this time. His CT of his C-spine was negative as well. His CT of his head was negative. No other traumatic issues. Abdoulaye Sheriff PA-C 07/05/2018 12:30 pm FINAL INJURIES: No new injuries were identified after physical examination and review of final radiological reading(s) of all studies. Plan of care discussed with Staff Trauma Surgeon: Dr. Fowler at (time) 1230 Trauma Service Pager: For questions or concerns Mon-Fri 6a-5p please page [phone]. After 5pm and on Weekends and Holidays, please page [phone] if in ICU or [phone] if on RNF. SIGNATURE: Abdoulaye Sheriff PA-C PATIENT NAME: Francisca Velasquez DATE: July 05, 2018 TIME: 1:56 PM PAGER/CONTACT #: [phone] CONSULT Observed: 07/05/2018 Status: COMPLETED Source: [facility] 12:10 PM CLINIC OTHER CAMPUS REPOSITORY HNO ID: [id number] Author: Tom Magallanes Service: Gastroenterology Author Type: Physician Type: Consults Filed: 07/05/2018 3:21 PM Note Text: HPI: Francisca Velasquez is a 62 year old male who presents for GI bleed with syncope. This pt was seen in [place] [facility] and transferred to [facility]. He started having melena stool and BRBPR last night. He takes ASA and Plavix but no NSAIDs (had TIA 1 mo ago). No anticoagulants. No abdo pain, no N/V, no weight loss. He had syncopal episode and HI with scalp lac. Woke up to this doing CPR. BP was stable but HR elevated. Hb 9.3 on presentation with normal INR and plt. No hx of liver disease. He does have UC, dx in 1980s, and has prior BRBPR as a result of this, mainly as he says he let it go too long. Was previously on sulfasalazine but stopped it as he felt it didn't help. He had a c-scope about 8-10 years ago but does not recall the results. Previously f/b Dr. Ferris. He has not needed Prednisone or biologics in the past, no surgery either. No past medical history on file. No past surgical history on file. Current Facility-Administered Medications: potassium chloride 80-120 mEq oral liquid 80-120 mEq ORAL/FEEDING TUBE PRN potassium chloride iv piggyback 20 mEq/100 mL 20 mEq INTRAVENOUS PRN magnesium sulfate in water 2 g in sterile water 50 ml 2 g INTRAVENOUS PRN sodium glycerophosphate 45 mmol in NaCl 0.9% 250 mL (GLYCOPHOS) 45 mmol INTRAVENOUS PRN calcium gluconate 4 g in NaCl 0.9% 250 mL 4 g INTRAVENOUS PRN pantoprazole 40 mg injection (PROTONIX) 40 mg INTRAVENOUS q 12 H Followed by [START ON 07/08/2018] pantoprazole 40 mg injection (PROTONIX) 40 mg INTRAVENOUS DAILY (6 AM) lactated ringers infusion 100 mL/hr INTRAVENOUS CONTINUOUS ciprofloxacin 400 mg in D5W 200 mL (CIPRO) 400 mg INTRAVENOUS q 12 H perflutren lipid microspheres 1.1 mg/mL 1.3 mL injection (DEFINITY) 1.3 mL INTRAVENOUS DIRECTED PRN ALLERGIES Allergen Reactions - Penicillin Anaphylaxis Family history reviewed. No history of colon cancer or IBD. Social History Marital status: Unknown Spouse name: Years of education: Number of children: Social History Main Topics Drug use: Unknown REVIEW OF SYSTEMS GASTROINTESTINAL: SEE ABOVE URINARY: NONE CARDIOVASCULAR: NONE NEUROLOGICAL: NONE CONSTITUTIONAL: NONE EYES: NONE EARS, NOSE AND THROAT: NONE RESPIRATORY: NONE SKIN: NONE ENDOCRINE: NONE PSYCHIATRIC: NONE HEMATOLOGIC NONE MUSCULOSKELETAL: NONE IMMUNOLOGIC: NONE PHYSICAL EXAMINATION: BP 119/68 Pulse 127 Temp (Src) 97.7 (Axillary) Resp 12 Ht 5' 11 (1.80m) Wt 199 lb 1.2 oz (90.3kg) SpO2 96% BMI 27.78 kg/(m2). GENERAL APPEARANCE: Well appearing, alert, in no acute distress, well-hydrated, well nourished. SKIN: Skin color, texture, turgor normal, no suspicious rashes or lesions. Scalp lac noted EYES: Anicteric sclera. Pupils are equally round and reactive to light. Extraocular movements are intact. . NECK: Supple, no adenopathy; thyroid symmetric, normal size, no bruits. LUNGS: Lungs clear to auscultation. No wheezing, rhonchi, rales. HEART: RRR without murmur, gallop, or rubs. No ectopy. ABDOMEN: Abdomen soft, non-tender, non distended. Bowel sounds normal. No masses, ascites or hepatosplenomegaly. EXTREMITIES: No deformities, edema, skin discoloration, clubbing or cyanosis. NEUROLOGIC: Gait normal. Sensation and strength grossly intact. LABS: Lab tests reviewed. HGB (g/dL) Date Value 07/05/2018 9.3 Hematocrit (%) Date Value 07/05/2018 33.0 WBC (thou/cmm) Date Value 07/05/2018 17.10 Platelet Count (thou/cmm) Date Value 07/05/2018 246 Creatinine Date Value Ref Range Status 07/05/2018 1.08 0.67 - 1.17 mg/dL Final No results found for: AST No results found for: ALT WBC (thou/cmm) Date Value 07/05/2018 17.10 (H) RBC (mil/cmm) Date Value 07/05/2018 3.66 (L) %DIG,%DBS No results found for: TSH IMAGING: Imaging including X-rays, Ultrasound, CT scans, MRI scans reviewed. none Old records reviewed if available. Plan ASSESSMENT AND PLAN: 62M with hx of UC x 30yrs, TIA (on ASA, Plavix) presenting with melena progressing to BRBPR starting yesterday and resulting in syncope. CT brain normal. Hb 9.3 on admission with tachycardia but normal BP. Currently in ICU. Will arrange for urgent EGD given hx of melena, ASA+Plavix use along with elevated BUN. Would need c-scope for assessment of colon given hx of UC. Will need a split prep for this. Bleeding from UC is rarely severe enough to cause syncope so need to evaluate foregut first. The risks, benefits and alternatives of the procedure were explained to the patient/responsible accompanying adult. This includes, but is not limited to, bleeding, infection and a 1:1000 risk of perforation. There is also a small risk of allergic reaction(s) due to sedatives, need for hospitalization, need for transfusions, need for surgery, and likelihood of missing a polyp or neoplastic lesion. The patient understands this and is amenable to proceeding. Thank you for involving me in the care of this patient. Tom Magallanes MD MPH FRCPC Observed: 07/05/2018 Status: F Source: [facility] CULT URINE 11:20 AM HEALTH SYSTEM REPOSITORY Test performed at [facility] No growth Performed By: #### C_URI #### [facility] [address] [place] [address] PLAN OF CARE Observed: 07/05/2018 Status: COMPLETED Source: [facility] 9:52 AM CLINIC OTHER CAMPUS REPOSITORY HNO ID: [id number] Author: Shena Maradiaga (Pharmacist) Service: Pharmacy Author Type: Pharmacist Type: Plan of Care Filed: 07/05/2018 9:56 AM Note Text: MEDICATION HISTORY AND MEDICATION RECONCILIATION Patient Name:Nikolai Velasquez : 1955 Source of history:Pharmacy records: [facility] ([facility] data Medication Nonadherence Identified: No barriers noted The above information represents the best possible medication history: Yes Reconciliation completed? Yes All STORM CHASER medications addressed by LIP Additional comments: Please note the following changes to the initial STORM CHASER medication list: -Added aspirin (as noted in the HANDP) -Added clopidogrel -Added atorvastatin -Added tamsulosin -Added magnesium oxide See individual medications for additional notes/last fill dates. Allergies: ALLERGIES Allergen Reactions - Penicillin Anaphylaxis Preferred Pharmacy: [facility] [place] ([phone]) Current STORM CHASER Medications: Prior to Admission medications as of 07/05/18 0956 Medication Sig Last Dose Taking aspirin 81 mg chewable tablet Take 81 mg by mouth once daily. Yes clopidogrel (PLAVIX) 75 mg tablet Take 75 mg by mouth once daily. Yes tamsulosin ER (FLOMAX) 0.4 mg cap Take 0.4 mg by mouth once daily. Yes magnesium oxide (MAG-OX) 400 mg (241.3 mg magnesium) tablet Take 400 mg by mouth twice daily. Yes atorvastatin (LIPITOR) 40 mg tablet Take 40 mg by mouth daily with dinner. Yes SHENA MARADIAGA, PHARMACIST July 05, 2018 9:52 AM URINALYSIS ROUTINE Collected: 07/05/2018 Status: F Source: [facility] 9:40 AM HEALTH SYSTEM REPOSITORY TYPE CODE TESTS RESULT OUT OF RANGE REFERENCE UNITS LAB COLOR(LOIN C) Urine Color YELLOW LAB APPUR(LOIN C) Urine Appearance CLEAR LAB GLUUR(LOIN Negative mg/dL C) Glucose Urine NEGATIVE LAB KETON(LOIN Negative mg/dL C) Ketone Urine NEGATIVE LAB HGBUR(LOIN Negative C) Hemoglobin,Urin NEGATIVE e LAB PROTU(LOIN Negative mg/dL C) Protein Urine NEGATIVE LAB NITRI(LOIN Negative C) Nitrites Urine NEGATIVE LAB BILIU(LOIN Negative C) Bilirubin Urine NEGATIVE LAB SPG(LOINC) 1.005-1.030 Specific 1.026 [place], Ur LAB PHUR(LOINC 5.0-8.0 ) pH,Urine 5.0 LAB UROBI(LOIN 0.0-1.0 EU/dL C) Urobilinogen,Ur 0.2 LAB LEUKO(LOIN Negative C) Abnormal Leukocytes SMALL Esterase LAB RBCU1(LOIN 0.0-5.0 /hpf C) RBC,Urine 1.3 LAB WBCU1(LOIN 0.0-5.0 /hpf C) High WBC, Urine 13.7 LAB EPIT1(LOIN 0.0-5.0 /hpf C) Ep Cells Urine 0.6 LAB BACT1(LOIN None C) Bacteria Urine NONE LAB HYCA1(LOIN 0.0-1.0 /lpf C) High Hyaline Cast 1.9 Performed By: #### URIN2 #### [place] [address] HGB Collected: 07/05/2018 Status: F Source: [facility] 9:00 [facility] REPOSITORY TYPE CODE TESTS RESULT OUT OF RANGE REFERENCE UNITS LAB HGBI(LOINC) 13.7-17.5 g/dL Low Hgb 9.3 Performed By: #### HGBI #### [place] [address] HGB A1C Collected: 07/05/2018 Status: F Source: [facility] 9:00 HEALTH SYSTEM REPOSITORY TYPE CODE TESTS RESULT OUT OF RANGE REFERENCE UNITS LAB A1C5(LOINC) 4.2-6.3 % Hgb A1c 4.6 Result Comment: Method is National Glycohemoglobin Standardization Program (NGSP) compliant. LAB ESAVG(LOINC) mg/dl Est. Avg Glucose 85 Performed By: #### HA1C #### [place] [address] VITAMIN B12 Collected: 07/05/2018 Status: F Source: [facility] 9:00 AM HEALTH SYSTEM REPOSITORY TYPE CODE TESTS RESULT OUT OF REFERENCE UNITS RANGE LAB B12(LOINC) 193-986 pg/mL Vitamin B12 202 Performed By: #### B12 #### [facility] [address] [place], [place] [address] PROGRESS Observed: 07/05/2018 Status: COMPLETED Source: [facility] 8:20 AM CLINIC OTHER CAMPUS REPOSITORY HNO ID: [id number] Author: Luis Felipe Burch Jr. Service: Critical Care Author Type: Physician Type: Progress Notes Filed: 07/05/2018 7:18 PM Note Text: Medical Intensive Care Progress Note July 05, 2018 Patient Name: Francisca Velasquez Patient Location: [id number][facility] Admission Date: 07/05/2018 Length of Stay: 0 Primary Service: Medical Intensive Care This patient is a 62 year old male with the PMH of TIA ( on ASA and plavix ) , HTN, HLD, nephrolithiasis and Ulcerative colitis since he was in 20s.Patient has hx of GI bleeds when he was young with UC flares. Last colonoscopy was done 8 yrs ago. A month ago , he had a TIA where he was started on plavix, he has been taking it daily along with ASA which he has been taking for years now. Denies any NSAIDs use. Presented to the ED from [facility] after having 4 bloody BM and dizziness since 1 day. He denied abdominal pain or rectal bleeding nausea or vomiting , but seems like he lost conscious and hit head which caused a scalp laceration. He woke up to his performing chest compressions and EMS brought him to the ED. He was tachypnec , tachycardic but stable BP Hb was 9.4, WBC 15.5. PC 285, INR 1.2, Cr 1.26, LA 1.8, Trop neg, LFT normal, CT cervical was done , showed degenerative changes with no fracture or sublaxation. CT brain was done which showed no acute ischemic infarct or intracranial hemorrhage. EKG showed sinus tachycardia Interval History for 07/05/18: Patient seen and examined in the AM. Lying in bed with no new complaints. He mentioned that he had colonoscopy 8 years ago, which did not reveal any significant process other than UC. He also complains of numbness and tingling in his hands. Says he feels less dizzy today. GI has been consulted Review of Systems Respiratory: Negative for cough. Cardiovascular: Negative for chest pain. Gastrointestinal: Positive for blood in stool. Negative for abdominal pain. Neurological: Positive for dizziness, tingling and sensory change. Objective Present Condition: 07/05/18 0440 07/05/18 0500 07/05/18 0600 07/05/18 0736 BP: 128/73 123/72 120/77 133/67 Pulse: 100 94 97 104 Resp: Temp: 36.6 ?C (97.9 ?F) 36.7 ?C (98.1 ?F) 36.5 ?C (97.7 ?F) (!) 35.9 ?C (96.6 ?F) TempSrc: Axillary SpO2: 98% 97% 97% 99% Weight: Height: Physical Exam Constitutional: He is oriented to person, place, and time. Cardiovascular: Normal rate. Pulmonary/Chest: Breath sounds normal. Abdominal: Bowel sounds are normal. He exhibits no distension. There is no tenderness. Musculoskeletal: He exhibits no edema. Neurological: He is alert and oriented to person, place, and time. Current Facility-Administered Medications: potassium chloride 80-120 mEq oral liquid 80-120 mEq ORAL/FEEDING TUBE PRN Jaz Priyadarshini (Res) Vipin potassium chloride iv piggyback 20 mEq/100 mL 20 mEq INTRAVENOUS PRN Jaz Priyadarshini (Res) Vipin magnesium sulfate in water 2 g in sterile water 50 ml 2 g INTRAVENOUS PRN Jaz Priyadarshini (Res) Vipin sodium glycerophosphate 45 mmol in NaCl 0.9% 250 mL (GLYCOPHOS) 45 mmol INTRAVENOUS PRN Jaz Priyadarshini (Res) Lew Last Rate: 31.25 mL/hr at 07/05/18 0606 45 mmol at 07/05/18 0606 calcium gluconate 4 g in NaCl 0.9% 250 mL 4 g INTRAVENOUS PRN Jaz Priyadarshini (Res) Vipin pantoprazole 40 mg injection (PROTONIX) 40 mg INTRAVENOUS q 12 H Ajzcristin Paceyadarshini (Res) Lew 40 mg at 07/05/18 0340 Followed by [START ON 07/08/2018] pantoprazole 40 mg injection (PROTONIX) 40 mg INTRAVENOUS DAILY (6 AM) Jaz Linares (Res) Vipin lactated ringers infusion 100 mL/hr INTRAVENOUS CONTINUOUS Jaz Linares (Res) Vipin Last Rate: 100 mL/hr at 07/05/18 0736 100 mL/hr at 07/05/18 0736 Labs: CBC: Recent Labs 07/05/18 0330 WBC 17.10* HB 10.6* HCT 33.0* PLT 246 MCV 90.2 COAG: Recent Labs 07/05/18 0420 INR 1.01 BMP: Recent Labs 07/05/18 033 GLUC 115* NA 144 K 4.0 CHLOR 117* CO2 19* ANION 12 BUN 34* CREAT 1.08 CHEM: Recent Labs 07/05/18 033 CA 7.3* MG 2.0 HEPATIC: No results for input(s): ALKPHOS, ALT, AST, TBILI, LIPASE in the last 168 hours. URINALYSIS:No results for input(s): PH, SPGR, UGLUC, UBILI, UKET, UHB, UPROT, UROBIL, UWBC, SSA in the last 168 hours. Invalid input(s): NITR CARDIAC: No results for input(s): CKTEST, CKMB, CKMBP in the last 168 hours.TROPONIN@:8,No results found for: BNP:8)@ Intake/Output Summary (Last 24 hours) at 07/05/18 0820 Last data filed at 07/05/18 0751 Gross per 24 hour Intake 431 ml Output 400 ml Net 31 ml Serum creatinine: 1.08 mg/dL 07/05/18 0330 Estimated creatinine clearance: 76.5 mL/min Subjective No past medical history on file. No current facility-administered medications on file prior to encounter. No current outpatient prescriptions on file prior to encounter. Assessment/Plan Reviewed in its entirety and amended as appropriate on 07/05/18 Gastrointestinal - Acute blood loss anemia - 2/2 to GI bleed, GI consulted - Hx of UC - Transfused 2 U of packed RBCs - Hb q6, transfuse <7 - Hold plavix an ASA - INR wnl Hematologic - Acute blood loss anemia - Given 2 U of packed RBCs, - Hb increased to 10.6 - Leukocytosis at 17.10, likely reactive - Afebrile, no source of infection Neuro - Syncope most Likely 2/2 to being hypotensive - CT negative - TIA last month, on Plavix and ASA, now held - Trauma consulted, for unwitnessed fall Infectious - UTI - treating with ciprofloxacin, penicillin allergy - Urine cx to follow Ordered EKG and echo for patient management. Signed: Caio Meza MD, PGY-1 Pager: [phone] Date: July 05, 2018 Time: 8:20 AM Recommendations are not finalized until co-signed by Staff physician. [facility] STAFF PHYSICIAN NOTE OF PERSONAL INVOLVEMENT IN CARE I have reviewed the documentation by the resident and I personally participated in the monson components. I have discussed the case and management of the patient's care. The following comments revise or confirm relevant monson components of the note. Painless bleeding, intermittent. EGD done Some neck soreness after syncope - appreciate trauma assessment IMPRESSION: Critical Care Documentation: The patient has the following organ/system impairment(s): Acute blood loss 1. Probable lower GI bleed 2. Hx of ulcerative colitis 3. Syncope (unwitnessed) with scalp laceration but no obvious bone or ligamentous injury 4. Lactic acidosis resolved 5. Continued anemia without recurrent bleeding but will observe in ICU and obtain CT abd pelvis 6. Recent TIA MMP PLAN: Ct abdomen pelvis tonight as Hgb falling and earlier BRBPR Colonoscopy Sunday if bleeding stops and stable over . Consider bleeding scan if recurrent BRBPR requiring additional transfusion - small amount of bleeding this afternoon and drop in hemoglobin may be dilutional Transfusion if Hbg < 8 - getting 1 unit now Hgb q 6 hours Monitor in ICU Discussed with staff/ patient This patient has a high probability of sudden, clinically significant deterioration, which requires the highest level of physician preparedness to intervene urgently. I managed/supervised life or organ supporting interventions that required frequent physician assessment. I devoted my full attention to the direct care of this patient for the amount of time indicated below. Time I spent with family or surrogate(s) is included only if the patient was incapable of providing the necessary information or participating in medical decision making. Time devoted to teaching is not included. Time spent providing critical care services: 40 minutes excluding procedures. SIGNATURE: Luis Felipe Burch Jr, MD [facility] TIME of SERVICE: 7:03 PM EMERGENCY DEPARTMENT Observed: 07/05/2018 Status: F Source: [place] SUMMARY 6:06 AM [facility] REPOSITORY [facility] Medical Records Department [address] [place] [address] Emergency Department Summary 07/04/18 2241 MR#: [id number] Acct: [id number] Name: FRANCISCA VELASQUEZ Rep #: [id number] : [id number] 62 From: Hortensia De Oliveira MD PCP: Catalino ELIZABETH,Erwin Status: DEP ER - ER Visit Summary Date of Service: 07/04/18 Chief Complaint: syncopal episode and lower GI bleed History of Present Illness: The patient is a 62 M with history of ulcerative colitis who presents for syncopal episode and GI bleed. Patient states he has been having dark tarry bloody stools for the last 2 days. This evening his heard him fall in the basement. She found him unresponsive on the basement floor. She states he was doing agonal breathing, and described as gasping. She performed chest compressions on him. He was moving unresponsive when EMS arrived. Patient is denying any headache or neck pain at this time. He denies any chest pain, shortness of breath, abdominal pain. He does state he has been having the bleeding. His last colonoscopy was over 10 years ago. He is on Plavix. Physical Examination: Vital signs: afebrile, hypotensive and tachycardic, no hypoxia on room air General: well nourished, well developed, in moderate distress Skin: warm, dry, pale, conjunctiva pallor and pallor of the palmar creases, superficial 0.5 cm lacerations to the mid forehead x2 HEENT: normocephalic and atraumatic; PERRL, EOMI, moist mucous membranes Cardiovascular: Tachycardic rate and rhythm without murmurs, no peripheral edema, 2+ pulses all distal extremities noted, no chest wall tenderness Respiratory: No increased work of breathing, lungs are clear to auscultation bilaterally, no rales, rhonchi or wheezing Abdominal: Abdomen is soft, nontender with normoactive bowel sounds, no guarding or rebound, no masses, large amount of coagulated dark purplish black blood in patient's underwear and around his rectum MSK: Moves all extremities, no deformities, normal strength, contusions noted to the left lateral proximal lower leg Neuro: Awake and alert, oriented 4. No facial droop, sensation and motor function intact and symmetric Test Results: Abnormal Lab Results WBC RBC Hgb Hct MCV MCH MCHC RDW RDW Differential Clinical Impression(s) from Imaging Studies Brain CT 07/04/18 22:39 There is no intracranial hemorrhage. There are no findings of an acute ischemic infarction. Electronically Signed: Parveen Washington DO at 23:43 EST Tel [phone], Service support , Cervical Spine CT 07/04/18 22:39 IMPRESSION: 1. Degenerative changes cervical spine without visualized fracture or subluxation. 2. Enlarged left thyroid lobe Medications Given Sodium Chloride () 1,000 mls @ 999 mls/hr IV .Q1H1M ONE Stop: 07/05/18 00:21 Last Admin: 07/04/18 23:30 Dose: 999 mls/hr Discontinued Medications Pantoprazole Sodium 80 mg/ (Sodium Chloride) 35 mls @ 420 mls/hr IV BOLUS X1 ONE Stop: 07/04/18 22:44 Last Admin: 07/04/18 23:40 Dose: 420 mls/hr Emergency Department Course and Treatment: Patient presents after a syncopal episode with symptomatic lower GI bleeding for 2 days. Syncope is most likely due to patient's lower GI bleeding. Patient has small superficial forehead lacerations that will not require suturing. Head CT showed no intracranial hemorrhage. C-spine CT showed no fractures. Patient was given 2 units of uncrossed matched blood due to hemodynamic instability in the setting of a brisk symptomatic lower GI bleed. Hemoglobin is 9.4, which likely does not reflect the true hemoglobin after the large amount of blood loss at the time of patient's initial evaluation. Patient was discussed with [facility] Dr. Melgar for transfer to the ICU at [facility] for emergent intervention of symptomatic lower GI bleed with hemodynamic instability. Patient was awake and alert with no focal neuro deficits during his ED course. Treatment Plan: [] Disposition: [] Impression: Lower GI bleed, syncopal episode, hemodynamic instability, superficial forehead lacerations This note was generated with [employer] software. It may contain incorrect words, spelling, and punctuation that were not noted in review of the chart prior to signing ED Disposition - Plan for ED Patient: Chief Complaint: Syncope Referrals: Erwin Bae MD [Primary Care Provider] - What to do if you have Problems For any increased pain, shortness of breath, bleeding, nausea or vomiting, chest pain, or any unexpected problems, contact your Primary Care Provider. Call [facility] ([phone]) or report to the closest Emergency Room. Call 911 if necessary. 07/05/18 0606 <Electronically signed by Hortensia De Oliveira MD> Date Hortensia De Oliveira MD Cosigner Signature (If Indicated): Date CC: Erwin Bae MD PROTIME Collected: 07/05/2018 Status: F Source: [facility] 4:20 AM HEALTH SYSTEM REPOSITORY TYPE CODE TESTS RESULT OUT OF REFERENCE UNITS RANGE LAB PTI(LOINC) 9.7-13.0 sec Prothrombin Time 10.5 LAB INR(LOINC) 0.90-1.30 INR 1.01 Result Comment: Note: Reference Range Change Vitamin K Antagonist (VKA) Therapeutic Range: INR 2 to 3 (Target INR of 2.5) Note: For patients treated with VKA drugs, such as warfarin, the [place] [employer] 2012 Guideline recommends a therapeutic INR range of 2 to 3 (target INR of 2.5). This recommendation includes high-risk patients with antiphospholipid syndrome with previous arterial or venous thromboembolism, current-generation mechanical or bioprosthetic aortic heart valve replacement. VKA Therapeutic Range for some Mechanical Valve Replacement: INR 2.5 to 3.5 (Target INR of 3) Note: Patients with mechanical aortic valve replacement and additional risk factors for thromboembolic events (atrial fibrillation, previous thromboembolism, LV dysfunction, hypercoagulable conditions) or an older generation mechanical AVR (i.e., ball in-Cage) or any mechanical MVR should have a INR therapeutic range of 2.5 to 3.5 target INR of 3). Long GH, et al. Chest 2012; 141:7S-47S Carter RA, et al. JACC 2017; 70: 252-289 Performed By: #### PT #### [facility] [address] [place] [address] HISTORY PHYSICAL Observed: 07/05/2018 Status: COMPLETED Source: [facility] 3:47 AM CLINIC OTHER CAMPUS REPOSITORY HNO ID: [id number] Author: Ric Melgar Service: Critical Care Author Type: Physician Type: HANDP Filed: 07/05/2018 3:57 AM Note Text: [facility] STAFF PHYSICIAN NOTE OF PERSONAL INVOLVEMENT IN CARE I have reviewed the history and physical examination obtained and documented by the resident and I personally participated in the monson components. I have discussed the case and management of the patient's care. The following comments revise or confirm relevant monson components of the note. IMPRESSION: - Acute Blood Loss Anemia - Acute GI bleed - ? Unclear source - Suspect possible LGIB - Syncope - Hx of UC w/ remote hx of LGIB - Hx of TIA on plavix - Mild leukocytosis - Scalp laceration - MMP PLAN: - Suspect source likely LGIB given hx and clinical presentation. - Continue PPI BID - Monitor H/H, goal Hb > 7. Tx as needed - Consult GI, recommend colonoscopy ARTHUR - Obtain full CBC, BMP, LFTs, INR/Coags - Monitor patient in ICU - Continue w/ aggressive IVF resuscitation This patient has a high probability of sudden, clinically significant deterioration, which requires the highest level of physician preparedness to intervene urgently. I managed/supervised life or organ supporting interventions that required frequent physician assessment. I devoted my full attention to the direct care of this patient for the amount of time indicated below. Time I spent with family or surrogate(s) is included only if the patient was incapable of providing the necessary information or participating in medical decision making. Time devoted to teaching and to any procedures I billed separately is not included. Critical Care Documentation: The patient has the following organ/system impairment(s): Acute blood loss Time spent providing critical care services: 30 minutes. SIGNATURE: Ric Melgar MD [facility] PAGER: [phone] DATE of SERVICE: July 05, 2018 TIME of SERVICE: 3:57 AM HEMOGRAM Collected: 07/05/2018 Status: F Source: [facility] 3:30 AM HEALTH SYSTEM REPOSITORY TYPE CODE TESTS RESULT OUT OF REFERENCE UNITS RANGE LAB WBC(LOINC) 4.23-9.07 thou/cmm High WBC 17.10 LAB RBC(LOINC) 4.63-6.08 mil/cmm Low RBC 3.66 LAB HGB(LOINC) 13.7-17.5 g/dL Low Hgb 10.6 LAB HCT(LOINC) 40.1-51.0 % Low Hct 33.0 LAB MCV(LOINC) 83.2-95.6 fl MCV 90.2 LAB MCH(LOINC) 25.7-32.2 pg MCH 29.0 LAB MCHC(LOINC) 32.3-36.5 % Low MCHC 32.1 LAB RDW(LOINC) 11.6-14.4 % High RDW 14.6 LAB RDWSD(LOINC 36.1-45.8 fl ) High RDW SD 47.9 LAB PLT(LOINC) 141-365 thou/cmm Platelet 246 LAB MPV(LOINC) 8.7-12.0 fl MPV 9.7 Performed By: #### CBC1 #### [facility] [address] [place] [address] BASIC PANEL Collected: 07/05/2018 Status: F Source: [facility] 3:30 AM HEALTH SYSTEM REPOSITORY TYPE CODE TESTS RESULT OUT OF REFERENCE UNITS RANGE LAB NA(LOINC) 136-145 mEq/L Sodium Blood 144 LAB K(LOINC) 3.5-5.1 mEq/L Potassium Blood 4.0 LAB CL(LOINC) 98-107 mEq/L Chloride High Blood 117 LAB CO2(LOINC) 21-32 mEq/L Low CO2 Blood 19 LAB GLU(LOINC) 70-99 mg/dL Glucose High Blood 115 LAB BUN(LOINC) 7-18 mg/dL BUN High Blood 34 LAB CREA(LOINC 0.67-1.17 mg/dL ) Creatinine Blood 1.08 LAB CA(LOINC) 8.5-10.1 mg/dL Low Calcium Blood 7.3 LAB ANGAP(LOIN 8-16 C) Anion Gap 12 Performed By: #### P8 #### [facility] [address] [place], [place] [address] MAGNESIUM BLOOD Collected: 07/05/2018 Status: F Source: [facility] 3:30 AM HEALTH SYSTEM REPOSITORY TYPE CODE TESTS RESULT OUT OF REFERENCE UNITS RANGE LAB MAG(LOINC) 1.6-2.6 mg/dL Magnesium Blood 2.0 Performed By: #### MAG #### [facility] [address] [place] [address] PHOSPHORUS BLOOD Collected: 07/05/2018 Status: F Source: [facility] 3:30 AM HEALTH SYSTEM REPOSITORY TYPE CODE TESTS RESULT OUT OF REFERENCE UNITS RANGE LAB PHOS(LOINC 2.5-4.9 mg/dL ) Low Phosphorus Blood 2.2 Performed By: #### PHOS #### [facility] [address] [place] [address] LACTIC ACID Collected: 07/05/2018 Status: F Source: [facility] 3:30 AM HEALTH SYSTEM REPOSITORY TYPE CODE TESTS RESULT OUT OF REFERENCE UNITS RANGE LAB LAC(LOINC) 0.4-2.0 mEq/L High alert Lactic Acid 2.1 Performed By: #### LAC #### [facility] [address] [place] [address] Observed: 07/05/2018 Status: F Source: [facility] MRSA SCREEN 3:30 AM HEALTH SYSTEM REPOSITORY Test performed at [facility] No MRSA detected. Performed By: #### MRSA #### [facility] [address] [place] [address] HISTORY PHYSICAL Observed: 07/05/2018 Status: COMPLETED Source: [facility] 3:[address] [facility] OTHER CAMPUS REPOSITORY O ID: [id number] Author: Elias Sanabria MD Service: Critical Care Author Type: Resident Type: HANDP Filed: 07/05/2018 4:18 AM Note Text: Attestation signed by Ric Melgar at 07/06/2018 2:51 AM Personally examined patient and discussed case with resident and reviewed his progress note/documentation. I also personally reviewed imaging and all laboratory data. Agree with history, exam, and assessment/plan. For any additional comments or changes in plan, please refer to my note on July 04, 2018 MICU ADMISSION HISTORY AND PHYSICAL NOTE Admission Date: 07/05/2018 Time: 3:09 AM AGE: [age] year old LOS: 0 days Reason for ICU admission: GI bleed Chief complaint: Dark bloody stools with syncope History of present illness: Hx of TIA ( on ASA and plavix ) , HTN, HLD, nephrolithiasis and UC since he was in 20s. Pt has hx of GI bleeds when he was young with UC flares. Last colonoscopy was done 8 yrs ago. A month ago , he had a TIA where he was started on plavix, he has been taking it daily along with ASA which he has been taking for years now. Denies any NSAIDs use. Hx began last night when he had 2 bloody bowel movements which were dark in colors, he felt lightheaded and went to bed , he woke up feeling fine but then had another 2 bright bloody BM. He denies abdominal pain or rectal bleeding. No nausea or vomiting , but seems like he lost conscious and hit head which caused a scalp laceration. He woke up to his performing chest compressions and EMS brought him to the ED. ER/ hospital course: Presented From [facility] after he was brought there by EMS for syncope and bloody stools for 2 days. He was tachypnec , tachycardic but stable BP Hb was 9.4, WBC 15.5. PC 285, INR 1.2, Cr 1.26, LA 1.8, Trop neg, LFT normal, CT cervical was done , showed degenerative changes with no fracture or sublaxation. CT brain was done which showed no acute ischemic infarct or intracranial hemorrhage. EKG showed sinus tachycardia Was given pantoprazole Admitted to MICU for further evaluation and treatment of his GI bleed. Currently pt still reports feeling dizzy with some difficulty breathing with deep inspiration. And had a bloody BM upon admission to the unit. Review of Systems ROS: All other systems negative. No past medical history on file. No past surgical history on file. No family history on file. Social History Marital status: Unknown Spouse name: Years of education: Number of children: Social History Main Topics Drug use: Unknown No current facility-administered medications on file prior to encounter. No current outpatient prescriptions on file prior to encounter. ALLERGIES Allergen Reactions - Penicillin Anaphylaxis PHYSICAL EXAM VITAL SIGNS (last 24hrs min/max): Temp Av.6 ?C (96.1 ?F) Min: 35.6 ?C (96.1 ?F) Max: 35.6 ?C (96.1 ?F) Pulse Av Min: 124 Max: 124 Cuff BP Min: 146/71 Max: 146/71 Pain Score: 10 24 hour Intake AND Output: No intake or output data in the 24 hours ending 07/05/18 0309 PRINTING BINDERY ASSISTANT: Alert and oriented Awake, oriented, Follows commands and Moving all extremities GCS: Total: 15 Oral Mucosa: Moist mucous membranes Feeding Tube: No Eyes: PERRLA Neck: painful ROM Cardiovascular: Regular tachycardia Respiratory: Clear to auscultation Abdomen: Soft, Nontender and Positive bowel sounds Extremities: Edema- No Peripheral Pulses- Present all extremities Capillary Refill- less than 3 seconds Skin: Abnormalities- Yes, scalp laceration on left foreheard Data: BLOOD GAS: No results for input(s): VPH, VPC2, VPO2C, RESPHCO3, BASEX, L2LZUVCG, PH, PCO2, RESPHCO3, BASEX, L2NHFIZE in the last 168 hours. Invalid input(s): PO2C CBC:No results for input(s): WBC, HB, HCT, PLT, MCV, RDWCV, NEUTP, ABSNEUT, LYMPHP, MONOP, EODINP in the last 168 hours. COAG: No results for input(s): APTT, INR in the last 168 hours. BMP: No results for input(s): GLUC, NA, K, CHLOR, CO2, ANION, BUN, CREAT in the last 168 hours. CHEM: No results for input(s): ALB, TPROT, CA, MG, ICAL in the last 168 hours. HEPATIC: No results for input(s): ALKPHOS, ALT, AST, TBILI, LIPASE in the last 168 hours. URINALYSIS:No results for input(s): PH, SPGR, UGLUC, UBILI, UKET, UHB, UPROT, UROBIL, UWBC, SSA in the last 168 hours. Invalid input(s): NITR CARDIAC: No results for input(s): CKTEST, CKMB, CKMBP, TROPT, PBNP in the last 168 hours. EKG RESULTS: sinus tachycardia There is no problem list on file for this patient. ASSESSMENT: A 62 yr old male pt with Hx of TIA ( on ASA and plavix ) , HTN, HLD, nephrolithiasis and UC, presented with Lower GI bleed and syncope * Acute blood loss anemia - 2/2 GI bleed, Likely lower given consequent bright bloody BM. - Hb 10.6, stable VS except for tachycardia - HANDH q 6hrs -Type and cross 2 units of PRBC -Transfuse PRBC with target Hb>7.0 - Keep NPO - IVF LR @ 100cc/hr - Protonix BID - No octreotide given no cirrhosis - Hold plavix and ASA - Don't give NSAIDs, or AC - Check PT/PTT - Recheck CBC, BMP - GI consult for possible EGD or colonoscopy. * Leukocytosis - WBC 17.1 - Normal LA - Afebrile - Likely reactive, no source on infxn * Syncope - Likely due to acute blood loss - EKG showed sinus tachycardia - Reassess after sufficient IVF - Check lytes * Scalp laceration - Brain CT didn't show acute bleeding. - Stable with no active bleeding * TIA - Dx last month - Hold ASA and plavix * UC - No flares per pt for 8 yrs. - fu with GI * HTN - Not on any high BP meds * HLD - On lipitor * Disposition - Monitor in the ICU for hemodynamic stability. Code status: Full code PATIENT CHECKLIST ? Are restraints necessary: No ? VTE prophylaxis administered? No. Contraindicated. ? Stress ulcer prophylaxis? Yes SIGNATURE: Elias Sanabria MD DATE: July 05, 2018 TIME: 3:09 AM PAGER/CONTACT #: [phone] SURGICAL TISSUE EXAM Observed: 07/05/2018 Status: F Source: [facility] 12:00 AM HEALTH SYSTEM REPOSITORY Test performed at [place] [address] NAME: FRANCISCA VELASQUEZ REQUESTING: RIC MELGAR MD COPY TO: TOM SONA FINAL DIAGNOSIS: STOMACH, BIOPSY - GASTRIC MUCOSA WITH NO SIGNIFICANT HISTOPATHOLOGIC CHANGE. OPERATIVE PROCEDURE: EGD CLINICAL INFORMATION: Melena, hiatus hernia GROSS DESCRIPTION: Gastric biopsy Received in formalin labeled gastric biopsy are two segments of brooks-brown soft tissue aggregating to 0.6 x 0.2 x 0.1 cm. The specimen is totally submitted in formalin in one cassette. Levels x 2. ARH:shasta WARREN M.D.,PATHOLOGIST (Electronic signature on file) Signed out: 07/09/2018 11:49 PRINTED: 07/09/2018 Page 1 of 1 Performed By: #### SURG #### [facility] [address] [place] [address] CBC W/DIFF, AUTOMATED Collected: 07/04/2018 Status: F Source: [place] 11:07 PM [facility] REPOSITORY TYPE CODE TESTS RESULT OUT OF RANGE REFERENCE UNITS LAB L100.1000 4.4-11.0 K/mm3 High WBC 15.5 LAB L100.1200 4.6-6.2 M/mm3 Low RBC 3.20 LAB L100.1300 13.0-16.5 g/dl Low HGB 9.4 LAB L100.1400 40-54 % Low HCT 29.1 LAB L100.1500 80-94 fL Normal MCV 90.9 LAB L100.1600 27.0-32.0 pg Normal MCH 29.4 LAB L100.1700 32-36 g/gl Normal MCHC 32.3 LAB L100.1810 11.6-14.6 % Normal RDW CV 14.2 LAB L100.1820 35.1-43.9 fl High RDW SD 46.0 LAB L100.1900 150-450 K/mm3 Normal PLT 285 LAB L100.2000 6.2-12.0 fl Normal MPV 10.1 LAB L100.2100 47-70 % High NEUT% 80.9 LAB L100.2200 19-41 % Low LY% 12.8 LAB L100.2300 0-10 % Normal MONO% 5.3 LAB L100.2400 0-5 % Normal EO% 0.6 LAB L100.2500 0-1 % Normal BASO% 0.1 LAB L100.2550 0.0-0.9 % Normal IM GRAN % 0.300 Result Comment: IG% - Immature Granulocytes (promyelocytes, myelocytes and metamyelocytes) > 1% indicates that a LEFT SHIFT is Present. LAB L100.2620 2.0-7.7 X10 3/uL High Absolute Neut 12.6 LAB L100.2720 0.83-4.51 X10 3/ul Normal Absolute Lymph 1.99 Performed By: #### L100.0100 #### [facility] [address] [place], [address] COMPREHENSIVE METABOLIC Collected: 07/04/2018 Status: F Source: [facility] 11:07 PM [facility] REPOSITORY TYPE CODE TESTS RESULT OUT OF RANGE REFERENCE UNITS LAB L501.0100 74-106 mg/dL High GLU 149 Result Comment: Fasting Glucose result greater than or equal to 126 mg/dL suggests DIABETES MELLITUS per A.D.A. criteria. Please note revised GLUCOSE reference range effective 2017. LAB L501.1000 7-18 mg/dL High BUN 41 LAB L501.1100 0.70-1.30 mg/dL Normal CREAT,SERUM 1.26 Result Comment: The validity of the calculated GFR AND GFRAA in patients over 70 years has not been determined. Clinical correlation is essential. LAB L501.1110 >60 mL/min Normal EST GFR 62 Result Comment: Non- GFR Calc LAB L501.1115 >60 mL/min Normal EST GFR - AA 75 Result Comment: GFR Calc LAB L501.1255 ml/min Normal Estimated CRCL 65.57 LAB L501.1300 10-20 RATIO High BUN/CRE 32.5 LAB L501.1500 6.4-8. g/dL Low 2 T PROT 5.5 LAB L501.1800 3.2-5. g/dL Low 0 ALB 2.7 LAB L501.1950 2.2-4. g/dL Normal 2 GLOB 2.8 LAB L501.2000 0.9-2. RATIO Normal 4 A/G 1.0 LAB L501.2200 8.5-10 mg/dL Low .1 CA 7.6 LAB L501.4100 15-37 U/L Normal AST 26 Result Comment: Slight Hemolysis, Result may be falsely increased. LAB L501.4305 45-117 U/L Normal ALK P 55 LAB L501.4405 16-61 U/L Normal ALT 24 LAB L501.4600 0.20-1.00 mg/dL Normal T BILI 0.50 LAB L501.5300 136-145 mmol/L Normal NA 139 LAB L501.5600 3.5-5.1 mmol/L Normal K 5.0 Result Comment: Slight Hemolysis, Result may be falsely increased. LAB L501.5900 98-107 mmol/L High CL 116 LAB L501.6100 21.0-32.0 mmol/L Low CO2 17.0 LAB L501.6200 5-15 Normal 6 GAP Performed By: #### L500.4050, L501.4010 #### [facility] [address] [place], [place], [id number] TROPONIN-I Collected: 07/04/2018 Status: F Source: [place] 11:07 [facility] [place] TYPE CODE TESTS RESULT OUT OF RANGE REFERENCE UNITS LAB L501.4010 <0.045 ng/mL Normal < 0.015 TROPONIN-I Result Comment: TROPONIN-I EXPECTED VALUES <0.045 Negative 0.045 - 0.590 Consistent with Cardiac Damage > OR = 0.600 Critical Value Not every elevated troponin is indicative of DE. These values should be used with clinical judgement in examining the patient's clinical picture for diagnosis. To establish a diagnosis of DE versus myocardial injury, there must be a demonstrated rise and/or fall in the troponin values, in addition to ischemic symptoms, EKG changes, new regional wall motion abnormality, and/or angiographical evidence. PLEASE NOTE: REFERENCE RANGES EDITED 17 Performed By: #### L500.4050, L501.4010 #### [facility] [address] [place], [place], [address] LACTIC ACID Collected: 07/04/2018 Status: F Source: [place] 11:07 [facility] [place] Order Comment: Yes/No query for Sepsis Lactate Rule Y TYPE CODE TESTS RESULT OUT OF RANGE REFERENCE UNITS LAB L503.6005 0.4-2.0 mmol/L Normal LACTIC ACID 1.8 Performed By: #### L503.6005 #### [facility] [address] [place], [place], [address] TYPE AND SCREEN Collected: 07/04/2018 Status: F Source: [place] 11:07 PM [facility] REPOSITORY Order Comment: CMV NEG? N Number of units to transfuse: 2 Is the EBL >/= 1000ml in adults or >/= 12ml/kg in children? Y Is there an orthostatic change in pt's BP(SBP drop >10mmHg)? Y Is pt's HR > 100 bpm? Y Reason for Ordering Blood: Acute Are the blood/blood products to be transfused? Y Is the patient having/had surgery? N CMV NEG?* N Give When? When Ready Irradiated? N Leukodepleted? Y Reason for Type AND Screen/Red Cells: TRAUMA TYPE CODE TESTS RESULT OUT OF RANGE REFERENCE UNITS LAB B10.0800 A Normal BLOOD TYPE GEL NEGATIVE LAB B100.4000 Normal Antibody NEGATIVE Screen Performed By: #### B101.7450 #### [facility] [place], [place], [address] LRBC Collected: 07/04/2018 Status: F Source: [place] 11:07 PM [facility] REPOSITORY TYPE CODE TESTS RESULT OUT OF REFERENCE UNITS RANGE LAB U100.0200 [id number] TRANSFUSED PRODUCT: Leuko-Reduced Red Blood Cells COUNT: 1 Performed By: #### U100.0200 #### [facility] - refer to report for specific site RC Collected: 07/04/2018 Status: F Source: [place] 11:07 PM [facility] REPOSITORY TYPE CODE TESTS RESULT OUT OF REFERENCE UNITS RANGE LAB U100.0000 [id number] TRANSFUSED PRODUCT: T AND S with Crossmatch, Red Cells COUNT: 1 Performed By: #### U100.0000 #### [facility] - refer to report for specific site SPINE CERVICAL Observed: 07/04/2018 Status: F Source: [place] WITHOUT CONTRAS 10:41 PM [facility] REPOSITORY [facility] Imaging Services [address] [place] [address] Spine Cervical without Contras MR#: [id number] Acct: [id number] Name: FRANCISCA VELASQUEZ Rep #: [id number] : 1955 M 62 From: Parveen Washington DO PCP: Catalino ELIZABETH,Erwin Status: REG ER Study: Spine Cervical without Contras Date of Exam: 07/04/18 Exam# [id number] Ordering Dr: Hortensia De Oliveira MD STUDY: CT CERVICAL SPINE WITHOUT CONTRAST REASON FOR EXAM: Male, 62 years old. Trauma. RADIATION DOSAGE (If Supplied By Facility): CTDIvol = ( 13.60 ) mGy, DLP = ( 288.10 ) mGycm TECHNIQUE: High resolution transaxial imaging was performed without contrast material. Sagittal and coronal images were reconstructed. Individualized dose optimization techniques were used for this CT. COMPARISON: None FINDINGS: Normal craniovertebral junction. There are degenerative changes of the anterior atlantoaxial articulation. Normal odontoid process. There is straightening of the normal cervical lordosis. Normal vertebral bodies and posterior osseous elements. C2-3: Normal endplates. Normal disc height and morphology. There is facet and uncovertebral joint degenerative change. Normal central canal and intervertebral neuroforamina. C3-4: Normal endplates. Normal disc height and morphology. There is facet and uncovertebral joint degenerative change. Normal central canal and intervertebral neuroforamina. C4-5: There is loss of disc height with endplate spondylosis. There is facet and uncovertebral joint degenerative change.. Normal central canal there is mild narrowing of the right intervertebral neuroforamen. C5-6: There is loss of disc height with endplate spondylosis. There is facet and uncovertebral joint degenerative change. Normal central canal. There is narrowing of the bilateral intervertebral neuroforamina. C6-7: There is loss of disc height with endplate spondylosis. There is facet and uncovertebral joint degenerative change. Normal central canal. There is narrowing of the bilateral intervertebral neuroforamina. C7-T1: Normal endplates. Normal disc height and morphology. Normal central canal and intervertebral neuroforamina. There is a prominent left thyroid lobe which extends substernally. It contains multiple coarse calcifications and displaces the trachea to the right. CT/Spine Cervical without Contras IMPRESSION: 1. Degenerative changes cervical spine without visualized fracture or subluxation. 2. Enlarged left thyroid lobe Electronically Signed: Parveen Washington DO at 23:42 EST Tel [phone], Service support , CC: Erwin Bae MD; Hortensia De Oliveira MD Senior Portfolio Manager: Signed BRAIN/HEAD WITHOUT Observed: 07/04/2018 Status: F Source: [place] CONTRAST 10:41 PM [facility] REPOSITORY [facility] Imaging Services [address] [address] Brain/Head without Contrast MR#: [id number] Acct: [id number] Name: FRANCISCA VELASQUEZ Rep #: [id number] : 1955 M 62 From: Parveen Washington DO PCP: Erwin Bae MD Status: REG ER Study: Brain/Head without Contrast Date of Exam: 07/04/18 Exam# [id number] Ordering Dr: Hortensia De Oliveira MD STUDY: CT BRAIN WITHOUT CONTRAST REASON FOR EXAM: Male, 62 years old. Trauma. Facial lacerations. RADIATION DOSAGE (If Supplied By Facility): CTDIvol = ( 44.99 ) mGy, DLP = ( 863.60 ) mGycm TECHNIQUE: Transaxial CT imaging of the brain was performed without administration of intravenous contrast material. Individualized dose optimization techniques were used for this CT. COMPARISON: May 28, 2018. FINDINGS: Normal soft tissue structures. Normal calvarium. Normal size ventricles and extra-axial spaces for the patient's age. Normal white matter tracts of the cerebral hemispheres. Normal basal ganglia and thalami. Normal brainstem. Normal cerebellum. There is no intracranial hemorrhage. There are no findings of an acute ischemic infarction. Normal visualized paranasal sinuses. CT/Brain/Head without Contrast IMPRESSION: Acute intracranial or calvarial abnormality or major interval change. Electronically Signed: Parveen Washington DO at 23:43 EST Tel [phone], Service support , CC: Erwin Bae MD; Hortensia De Oliveira MD Senior Portfolio Manager: Signed PROTHROMBIN TIME W/INR Collected: 07/04/2018 Status: F Source: [place] 10:32 PM [facility] REPOSITORY TYPE CODE TESTS RESULT OUT OF RANGE REFERENCE UNITS LAB L300.4150 11.7-14.9 SECONDS Normal PROTIME 14.7 LAB L300.4200 Normal INR 1.2 Performed By: #### L300.3900, L300.4310 #### [facility] [address] [place], [place], [address] PARTIAL THROMBOPLAST Collected: 07/04/2018 Status: F Source: [place] TIME 10:32 PM [facility] REPOSITORY TYPE CODE TESTS RESULT OUT OF REFERENCE UNITS RANGE LAB L300.4310 24.1-36.2 Seconds Low PTT 23.1 Performed By: #### L300.3900, L300.4310 #### [facility] [address] [place], [address] HOSP Observed: 07/04/2018 Status: COMPLETED Source: [facility] 12:00 AM CLINIC OTHER CAMPUS REPOSITORY Patient:Francisca Velasquez MRN: <[id number]> Height:5' 10.984(1.803 m) Weight:204 lb 12.9 oz (92.9 kg) Outpatient Medications as of 07/10/18: aspirin 81 mg chewable tablet clopidogrel (PLAVIX) 75 mg tablet tamsulosin ER (FLOMAX) 0.4 mg cap magnesium oxide (MAG-OX) 400 mg (241.3 mg magnesium) tablet atorvastatin (LIPITOR) 40 mg tablet Admission/Clinic Administered Medications as of 07/10/18: atorvastatin 40 mg tab(s) (LIPITOR) pantoprazole DR 40 mg tab(s) (PROTONIX) ondansetron (PF) 4 mg injection (ZOFRAN) tamsulosin ER 0.4 mg cap(s) (FLOMAX) potassium chloride 80-120 mEq oral liquid potassium chloride iv piggyback 20 mEq/100 mL magnesium sulfate in water 2 g in sterile water 50 ml sodium glycerophosphate 45 mmol in NaCl 0.9% 250 mL (GLYCOPHOS) calcium gluconate 4 g in NaCl 0.9% 250 mL Problem List: GI bleed [K92.2] Melena [K92.1] Nicotine use disorder, F17.2 [F17.200] BRBPR (bright red blood per rectum) [K62.5] Allergies: Penicillin Date Verified: 07/09/18 Lab Values Lab Value Units Date High Low POTA* 3.5 mEq/L 07/07/2018 5.1 3.5 ROSCOE* 18.8 % 07/07/2018 51.0 40.1 Progress Notes (): Elias Sanabria MD, MD 07/05/2018 4:18 AM Attested Attestation signed by Ric Melgar at 07/06/2018 2:51 AM Personally examined patient and discussed case with resident and reviewed his progress note/documentation. I also personally reviewed imaging and all laboratory data. Agree with history, exam, and assessment/plan. For any additional comments or changes in plan, please refer to my note on July 04, 2018 MICU ADMISSION HISTORY AND PHYSICAL NOTE Admission Date: 07/05/2018 Time: 3:09 AM AGE: [age] year old LOS: 0 days Reason for ICU admission: GI bleed Chief complaint: Dark bloody stools with syncope History of present illness: Hx of TIA ( on ASA and plavix ) , HTN, HLD, nephrolithiasis and UC since he was in 20s. Pt has hx of GI bleeds when he was young with UC flares. Last colonoscopy was done 8 yrs ago. A month ago , he had a TIA where he was started on plavix, he has been taking it daily along with ASA which he has been taking for years now. Denies any NSAIDs use. Hx began last night when he had 2 bloody bowel movements which were dark in colors, he felt lightheaded and went to bed , he woke up feeling fine but then had another 2 bright bloody BM. He denies abdominal pain or rectal bleeding. No nausea or vomiting , but seems like he lost conscious and hit head which caused a scalp laceration. He woke up to his performing chest compressions and EMS brought him to the ED. ER/ hospital course: Presented From [facility] after he was brought there by EMS for syncope and bloody stools for 2 days. He was tachypnec , tachycardic but stable BP Hb was 9.4, WBC 15.5. PC 285, INR 1.2, Cr 1.26, LA 1.8, Trop neg, LFT normal, CT cervical was done , showed degenerative changes with no fracture or sublaxation. CT brain was done which showed no acute ischemic infarct or intracranial hemorrhage. EKG showed sinus tachycardia Was given pantoprazole Admitted to MICU for further evaluation and treatment of his GI bleed. Currently pt still reports feeling dizzy with some difficulty breathing with deep inspiration. And had a bloody BM upon admission to the unit. Review of Systems ROS: All other systems negative. No past medical history on file. No past surgical history on file. No family history on file. Social History Marital status: Unknown Spouse name: Years of education: Number of children: Social History Main Topics Drug use: Unknown No current facility-administered medications on file prior to encounter. No current outpatient prescriptions on file prior to encounter. ALLERGIES Allergen Reactions - Penicillin Anaphylaxis PHYSICAL EXAM VITAL SIGNS (last 24hrs min/max): Temp Av.6 ?C (96.1 ?F) Min: 35.6 ?C (96.1 ?F) Max: 35.6 ?C (96.1 ?F) Pulse Av Min: 124 Max: 124 Cuff BP Min: 146/71 Max: 146/71 Pain Score: 1/10 24 hour Intake AND Output: No intake or output data in the 24 hours ending 07/05/18 0309 PRINTING BINDERY ASSISTANT: Alert and oriented Awake, oriented, Follows commands and Moving all extremities GCS: Total: 15 Oral Mucosa: Moist mucous membranes Feeding Tube: No Eyes: PERRLA Neck: painful ROM Cardiovascular: Regular tachycardia Respiratory: Clear to auscultation Abdomen: Soft, Nontender and Positive bowel sounds Extremities: Edema- No Peripheral Pulses- Present all extremities Capillary Refill- less than 3 seconds Skin: Abnormalities- Yes, scalp laceration on left foreheard Data: BLOOD GAS: No results for input(s): VPH, VPC2, VPO2C, RESPHCO3, BASEX, [id number], PH, PCO2, RESPHCO3, BASEX, X6OHDMQP in the last 168 hours. Invalid input(s): PO2C CBC:No results for input(s): WBC, HB, HCT, PLT, MCV, RDWCV, NEUTP, ABSNEUT, LYMPHP, MONOP, EODINP in the last 168 hours. COAG: No results for input(s): APTT, INR in the last 168 hours. BMP: No results for input(s): GLUC, NA, K, CHLOR, CO2, ANION, BUN, CREAT in the last 168 hours. CHEM: No results for input(s): ALB, TPROT, CA, MG, ICAL in the last 168 hours. HEPATIC: No results for input(s): ALKPHOS, ALT, AST, TBILI, LIPASE in the last 168 hours. URINALYSIS:No results for input(s): PH, SPGR, UGLUC, UBILI, UKET, UHB, UPROT, UROBIL, UWBC, SSA in the last 168 hours. Invalid input(s): NITR CARDIAC: No results for input(s): CKTEST, CKMB, CKMBP, TROPT, PBNP in the last 168 hours. EKG RESULTS: sinus tachycardia There is no problem list on file for this patient. ASSESSMENT: A 62 yr old male pt with Hx of TIA ( on ASA and plavix ) , HTN, HLD, nephrolithiasis and UC, presented with Lower GI bleed and syncope * Acute blood loss anemia - 2/2 GI bleed, Likely lower given consequent bright bloody BM. - Hb 10.6, stable VS except for tachycardia - HANDH q 6hrs -Type and cross 2 units of PRBC -Transfuse PRBC with target Hb>7.0 - Keep NPO - IVF LR @ 100cc/hr - Protonix BID - No octreotide given no cirrhosis - Hold plavix and ASA - Don't give NSAIDs, or AC - Check PT/PTT - Recheck CBC, BMP - GI consult for possible EGD or colonoscopy. * Leukocytosis - WBC 17.1 - Normal LA - Afebrile - Likely reactive, no source on infxn * Syncope - Likely due to acute blood loss - EKG showed sinus tachycardia - Reassess after sufficient IVF - Check lytes * Scalp laceration - Brain CT didn't show acute bleeding. - Stable with no active bleeding * TIA - Dx last month - Hold ASA and plavix * UC - No flares per pt for 8 yrs. - fu with GI * HTN - Not on any high BP meds * HLD - On lipitor * Disposition - Monitor in the ICU for hemodynamic stability. Code status: Full code PATIENT CHECKLIST ? Are restraints necessary: No ? VTE prophylaxis administered? No. Contraindicated. ? Stress ulcer prophylaxis? Yes SIGNATURE: Elias Sanabria MD DATE: July 05, 2018 TIME: 3:09 AM PAGER/CONTACT #: [phone] Ric Melgar MD 07/05/2018 3:[address] [facility] STAFF PHYSICIAN NOTE OF PERSONAL INVOLVEMENT IN CARE I have reviewed the history and physical examination obtained and documented by the resident and I personally participated in the monson components. I have discussed the case and management of the patient's care. The following comments revise or confirm relevant monson components of the note. IMPRESSION: - Acute Blood Loss Anemia - Acute GI bleed - ? Unclear source - Suspect possible LGIB - Syncope - Hx of UC w/ remote hx of LGIB - Hx of TIA on plavix - Mild leukocytosis - Scalp laceration - MMP PLAN: - Suspect source likely LGIB given hx and clinical presentation. - Continue PPI BID - Monitor H/H, goal Hb > 7. Tx as needed - Consult GI, recommend colonoscopy ARTHUR - Obtain full CBC, BMP, LFTs, INR/Coags - Monitor patient in ICU - Continue w/ aggressive IVF resuscitation This patient has a high probability of sudden, clinically significant deterioration, which requires the highest level of physician preparedness to intervene urgently. I managed/supervised life or organ supporting interventions that required frequent physician assessment. I devoted my full attention to the direct care of this patient for the amount of time indicated below. Time I spent with family or surrogate(s) is included only if the patient was incapable of providing the necessary information or participating in medical decision making. Time devoted to teaching and to any procedures I billed separately is not included. Critical Care Documentation: The patient has the following organ/system impairment(s): Acute blood loss Time spent providing critical care services: 30 minutes. SIGNATURE: Ric Melgar MD [facility] PAGER: [phone] DATE of SERVICE: July 05, 2018 TIME of SERVICE: 3:57 AM Luis Felipe Burch Jr, MD 07/05/2018 7:18 PM Signed Medical Intensive Care Progress Note July 05, 2018 Patient Name: Francisca Velasquez [id number] Admission Date: 07/05/2018 Length of Stay: 0 Primary Service: Medical Intensive Care This patient is a 62 year old male with the PMH of TIA ( on ASA and plavix ) , HTN, HLD, nephrolithiasis and Ulcerative colitis since he was in 20s.Patient has hx of GI bleeds when he was young with UC flares. Last colonoscopy was done 8 yrs ago. A month ago , he had a TIA where he was started on plavix, he has been taking it daily along with ASA which he has been taking for years now. Denies any NSAIDs use. Presented to the ED from [facility] after having 4 bloody BM and dizziness since 1 day. He denied abdominal pain or rectal bleeding nausea or vomiting , but seems like he lost conscious and hit head which caused a scalp laceration. He woke up to his performing chest compressions and EMS brought him to the ED. He was tachypnec , tachycardic but stable BP Hb was 9.4, WBC 15.5. PC 285, INR 1.2, Cr 1.26, LA 1.8, Trop neg, LFT normal, CT cervical was done , showed degenerative changes with no fracture or sublaxation. CT brain was done which showed no acute ischemic infarct or intracranial hemorrhage. EKG showed sinus tachycardia Interval History for 07/05/18: Patient seen and examined in the AM. Lying in bed with no new complaints. He mentioned that he had colonoscopy 8 years ago, which did not reveal any significant process other than UC. He also complains of numbness and tingling in his hands. Says he feels less dizzy today. GI has been consulted Review of Systems Respiratory: Negative for cough. Cardiovascular: Negative for chest pain. Gastrointestinal: Positive for blood in stool. Negative for abdominal pain. Neurological: Positive for dizziness, tingling and sensory change. Objective Present Condition: 07/05/18 0440 07/05/18 0500 07/05/18 0600 07/05/18 0736 BP: 128/73 123/72 120/77 133/67 Pulse: 100 94 97 104 Resp: Temp: 36.6 ?C (97.9 ?F) 36.7 ?C (98.1 ?F) 36.5 ?C (97.7 ?F) (!) 35.9 ?C (96.6 ?F) TempSrc: Axillary SpO2: 98% 97% 97% 99% Weight: Height: Physical Exam Constitutional: He is oriented to person, place, and time. Cardiovascular: Normal rate. Pulmonary/Chest: Breath sounds normal. Abdominal: Bowel sounds are normal. He exhibits no distension. There is no tenderness. Musculoskeletal: He exhibits no edema. Neurological: He is alert and oriented to person, place, and time. Current Facility-Administered Medications: potassium chloride 80-120 mEq oral liquid 80-120 mEq ORAL/FEEDING TUBE PRN Jaz Priyadarshini (Res) Vipin potassium chloride iv piggyback 20 mEq/100 mL 20 mEq INTRAVENOUS PRN Jaz Priyadarshini (Res) Vipin magnesium sulfate in water 2 g in sterile water 50 ml 2 g INTRAVENOUS PRN Jaz Priyadarshini (Res) Vipin sodium glycerophosphate 45 mmol in NaCl 0.9% 250 mL (GLYCOPHOS) 45 mmol INTRAVENOUS PRN Jaz Priyadarshini (Res) Vipin Last Rate: 31.25 mL/hr at 07/05/18 0606 45 mmol at 07/05/18 0606 calcium gluconate 4 g in NaCl 0.9% 250 mL 4 g INTRAVENOUS PRN Jaz Priyadarshini (Res) Vipin pantoprazole 40 mg injection (PROTONIX) 40 mg INTRAVENOUS q 12 H Jazcristin Paceyadarshini (Res) Lew 40 mg at 07/05/18 0340 Followed by [START ON 07/08/2018] pantoprazole 40 mg injection (PROTONIX) 40 mg INTRAVENOUS DAILY (6 AM) Jaz Linares (Res) Vipin lactated ringers infusion 100 mL/hr INTRAVENOUS CONTINUOUS Jaz Linares (Res) Vipin Last Rate: 100 mL/hr at 07/05/18 0736 100 mL/hr at 07/05/18 0736 Labs: CBC: Recent Labs 07/05/18329 WBC 17.10* HB 10.6* HCT 33.0* PLT 246 MCV 90.2 COAG: Recent Labs 07/05/18 042 INR 1.01 BMP: Recent Labs 07/05/18329 GLUC 115* NA 144 K 4.0 CHLOR 117* CO2 19* ANION 12 BUN 34* CREAT 1.08 CHEM: Recent Labs 07/05/18329 CA 7.3* MG 2.0 HEPATIC: No results for input(s): ALKPHOS, ALT, AST, TBILI, LIPASE in the last 168 hours. URINALYSIS:No results for input(s): PH, SPGR, UGLUC, UBILI, UKET, UHB, UPROT, UROBIL, UWBC, SSA in the last 168 hours. Invalid input(s): NITR CARDIAC: No results for input(s): CKTEST, CKMB, CKMBP in the last 168 hours.TROPONIN@:8,No results found for: BNP:8)@ Intake/Output Summary (Last 24 hours) at 07/05/18 0820 Last data filed at 07/05/18 0751 Gross per 24 hour Intake 431 ml Output 400 ml Net 31 ml Serum creatinine: 1.08 mg/dL 07/05/18329 Estimated creatinine clearance: 76.5 mL/min Subjective No past medical history on file. No current facility-administered medications on file prior to encounter. No current outpatient prescriptions on file prior to encounter. Assessment/Plan Reviewed in its entirety and amended as appropriate on 07/05/18 Gastrointestinal - Acute blood loss anemia - 2/2 to GI bleed, GI consulted - Hx of UC - Transfused 2 U of packed RBCs - Hb q6, transfuse <7 - Hold plavix an ASA - INR wnl Hematologic - Acute blood loss anemia - Given 2 U of packed RBCs, - Hb increased to 10.6 - Leukocytosis at 17.10, likely reactive - Afebrile, no source of infection Neuro - Syncope most Likely 2/2 to being hypotensive - CT negative - TIA last month, on Plavix and ASA, now held - Trauma consulted, for unwitnessed fall Infectious - UTI - treating with ciprofloxacin, penicillin allergy - Urine cx to follow Ordered EKG and echo for patient management. Signed: Caio Meza MD, PGY-1 Pager: [phone] Date: July 05, 2018 Time: 8:20 AM Recommendations are not finalized until co-signed by Staff physician. [facility] STAFF PHYSICIAN NOTE OF PERSONAL INVOLVEMENT IN CARE I have reviewed the documentation by the resident and I personally participated in the monson components. I have discussed the case and management of the patient's care. The following comments revise or confirm relevant monson components of the note. Painless bleeding, intermittent. EGD done Some neck soreness after syncope - appreciate trauma assessment IMPRESSION: Critical Care Documentation: The patient has the following organ/system impairment(s): Acute blood loss 1. Probable lower GI bleed 2. Hx of ulcerative colitis 3. Syncope (unwitnessed) with scalp laceration but no obvious bone or ligamentous injury 4. Lactic acidosis resolved 5. Continued anemia without recurrent bleeding but will observe in ICU and obtain CT abd pelvis 6. Recent TIA MMP PLAN: Ct abdomen pelvis tonight as Hgb falling and earlier BRBPR Colonoscopy Sunday if bleeding stops and stable over . Consider bleeding scan if recurrent BRBPR requiring additional transfusion - small amount of bleeding this afternoon and drop in hemoglobin may be dilutional Transfusion if Hbg < 8 - getting 1 unit now Hgb q 6 hours Monitor in ICU Discussed with staff/ patient This patient has a high probability of sudden, clinically significant deterioration, which requires the highest level of physician preparedness to intervene urgently. I managed/supervised life or organ supporting interventions that required frequent physician assessment. I devoted my full attention to the direct care of this patient for the amount of time indicated below. Time I spent with family or surrogate(s) is included only if the patient was incapable of providing the necessary information or participating in medical decision making. Time devoted to teaching is not included. Time spent providing critical care services: 40 minutes excluding procedures. SIGNATURE: Luis Felipe Burch Jr, MD [facility] TIME of SERVICE: 7:03 PM Previous Version SHENA MARADIAGA, PHARMACIST 07/05/2018 9:56 AM Signed MEDICATION HISTORY AND MEDICATION RECONCILIATION Patient Name:Nikolai Velasquez : 1955 Source of history:Pharmacy records: [facility] ([facility] Medication Nonadherence Identified: No barriers noted The above information represents the best possible medication history: Yes Reconciliation completed? Yes All STORM CHASER medications addressed by LIP Additional comments: Please note the following changes to the initial STORM CHASER medication list: -Added aspirin (as noted in the HANDP) -Added clopidogrel -Added atorvastatin -Added tamsulosin -Added magnesium oxide See individual medications for additional notes/last fill dates. Allergies: ALLERGIES Allergen Reactions - Penicillin Anaphylaxis Preferred Pharmacy: [facility] - [place] ([phone]) Current STORM CHASER Medications: Prior to Admission medications as of 07/05/18 0956 Medication Sig Last Dose Taking aspirin 81 mg chewable tablet Take 81 mg by mouth once daily. Yes clopidogrel (PLAVIX) 75 mg tablet Take 75 mg by mouth once daily. Yes tamsulosin ER (FLOMAX) 0.4 mg cap Take 0.4 mg by mouth once daily. Yes magnesium oxide (MAG-OX) 400 mg (241.3 mg magnesium) tablet Take 400 mg by mouth twice daily. Yes atorvastatin (LIPITOR) 40 mg tablet Take 40 mg by mouth daily with dinner. Yes SHENA MARADIAGA, PHARMACIST July 05, 2018 9:52 AM Tom Magallanes MD MPH [facility] 07/05/2018 3:21 PM Addendum HPI: Francisca Velasquez is a 62 year old male who presents for GI bleed with syncope. This pt was seen in [place] ED and transferred to [facility]. He started having melena stool and BRBPR last night. He takes ASA and Plavix but no NSAIDs (had TIA 1 mo ago). No anticoagulants. No abdo pain, no N/V, no weight loss. He had syncopal episode and HI with scalp lac. Woke up to this doing CPR. BP was stable but HR elevated. Hb 9.3 on presentation with normal INR and plt. No hx of liver disease. He does have UC, dx in 1980s, and has prior BRBPR as a result of this, mainly as he says he let it go too long. Was previously on sulfasalazine but stopped it as he felt it didn't help. He had a c-scope about 8-10 years ago but does not recall the results. Previously f/b Dr. Ferris. He has not needed Prednisone or biologics in the past, no surgery either. No past medical history on file. No past surgical history on file. Current Facility-Administered Medications: potassium chloride 80-120 mEq oral liquid 80-120 mEq ORAL/FEEDING TUBE PRN potassium chloride iv piggyback 20 mEq/100 mL 20 mEq INTRAVENOUS PRN magnesium sulfate in water 2 g in sterile water 50 ml 2 g INTRAVENOUS PRN sodium glycerophosphate 45 mmol in NaCl 0.9% 250 mL (GLYCOPHOS) 45 mmol INTRAVENOUS PRN calcium gluconate 4 g in NaCl 0.9% 250 mL 4 g INTRAVENOUS PRN pantoprazole 40 mg injection (PROTONIX) 40 mg INTRAVENOUS q 12 H Followed by [START ON 07/08/2018] pantoprazole 40 mg injection (PROTONIX) 40 mg INTRAVENOUS DAILY (6 AM) lactated ringers infusion 100 mL/hr INTRAVENOUS CONTINUOUS ciprofloxacin 400 mg in D5W 200 mL (CIPRO) 400 mg INTRAVENOUS q 12 H perflutren lipid microspheres 1.1 mg/mL 1.3 mL injection (DEFINITY) 1.3 mL INTRAVENOUS DIRECTED PRN ALLERGIES Allergen Reactions - Penicillin Anaphylaxis Family history reviewed. No history of colon cancer or IBD. Social History Marital status: Unknown Spouse name: Years of education: Number of children: Social History Main Topics Drug use: Unknown REVIEW OF SYSTEMS GASTROINTESTINAL: SEE ABOVE URINARY: NONE CARDIOVASCULAR: NONE NEUROLOGICAL: NONE CONSTITUTIONAL: NONE EYES: NONE EARS, NOSE AND THROAT: NONE RESPIRATORY: NONE SKIN: NONE ENDOCRINE: NONE PSYCHIATRIC: NONE HEMATOLOGIC NONE MUSCULOSKELETAL: NONE IMMUNOLOGIC: NONE PHYSICAL EXAMINATION: BP 119/68 Pulse 127 Temp (Src) 97.7 (Axillary) Resp 12 Ht 5' 11 (1.80m) Wt 199 lb 1.2 oz (90.3kg) SpO2 96% BMI 27.78 kg/(m2). GENERAL APPEARANCE: Well appearing, alert, in no acute distress, well-hydrated, well nourished. SKIN: Skin color, texture, turgor normal, no suspicious rashes or lesions. Scalp lac noted EYES: Anicteric sclera. Pupils are equally round and reactive to light. Extraocular movements are intact. . NECK: Supple, no adenopathy; thyroid symmetric, normal size, no bruits. LUNGS: Lungs clear to auscultation. No wheezing, rhonchi, rales. HEART: RRR without murmur, gallop, or rubs. No ectopy. ABDOMEN: Abdomen soft, non-tender, non distended. Bowel sounds normal. No masses, ascites or hepatosplenomegaly. EXTREMITIES: No deformities, edema, skin discoloration, clubbing or cyanosis. NEUROLOGIC: Gait normal. Sensation and strength grossly intact. LABS: Lab tests reviewed. HGB (g/dL) Date Value 07/05/2018 9.3 Hematocrit (%) Date Value 07/05/2018 33.0 WBC (thou/cmm) Date Value 07/05/2018 17.10 Platelet Count (thou/cmm) Date Value 07/05/2018 246 Creatinine Date Value Ref Range Status 07/05/2018 1.08 0.67 - 1.17 mg/dL Final No results found for: AST No results found for: ALT WBC (thou/cmm) Date Value 07/05/2018 17.10 (H) RBC (mil/cmm) Date Value 07/05/2018 3.66 (L) %DIG,%DBS No results found for: TSH IMAGING: Imaging including X-rays, Ultrasound, CT scans, MRI scans reviewed. none Old records reviewed if available. Plan ASSESSMENT AND PLAN: 62M with hx of UC x 30yrs, TIA (on ASA, Plavix) presenting with melena progressing to BRBPR starting yesterday and resulting in syncope. CT brain normal. Hb 9.3 on admission with tachycardia but normal BP. Currently in ICU. Will arrange for urgent EGD given hx of melena, ASA+Plavix use along with elevated BUN. Would need c-scope for assessment of colon given hx of UC. Will need a split prep for this. Bleeding from UC is rarely severe enough to cause syncope so need to evaluate foregut first. The risks, benefits and alternatives of the procedure were explained to the patient/responsible accompanying adult. This includes, but is not limited to, bleeding, infection and a 1:1000 risk of perforation. There is also a small risk of allergic reaction(s) due to sedatives, need for hospitalization, need for transfusions, need for surgery, and likelihood of missing a polyp or neoplastic lesion. The patient understands this and is amenable to proceeding. Thank you for involving me in the care of this patient. Tom Magallanes MD MPH [facility] Previous Version Diego Fowler MD 07/06/2018 11:17 AM [address] TRAUMA HANDP [facility] ARRIVAL DATE: 07/05/2018 ARRIVAL TIME: 031 CATEGORY: Level 3 INJURY DATE: 07/05/2018 INJURY TIME: NA Subjective This is a 62 year old white male seen as a Level III trauma consult in the MICU for evaluation of potential injuries sustained during a fall at his residence that occurred last night. Patient currently admitted to MICU for GI bleed. Patient has a history of UC with past GI bleeds currently taking Plavix and ASA for TIAs. Patient describes having had dark bloody bowel movements x 2 last night. He got up in the middle of the night to use the restroom and had another bowel movement consisting of bright red blood. Patient notes that he felt dizziness when attempted to stand from the toilet but that feeling shortly passed. He notes falling asleep in the spare bedroom and yet again waking up to use the restroom. Patient notes LOC upon standing and attempting to ambulated causing him to hit his head. He cannot recall all of the events of the fall. He notes waking up to his performing chest compressions on his. EMS took him to [facility] where initial workup was completed. Per MICU note, CT Brain and C-spine negative for acute injury. Currently patient is complaining of no pain. Denies [place], extremity weakness or paresthesias. Notes some numbness in the index fingers and thumbs bilaterally, chronic per patient description. Denies CP, SOB, ABD pain, current N/V. No focal musculoskeletal/joint complaints.GCS at Scene was 15. HPI/CHIEF COMPLAINT: Fall with +LOC BRIEF DESCRIPTION OF INJURIES: Left anterior scalp/forehead abrasion LAST FLUIDS/MEAL: NA CODE STATUS: Not discussed ALLERGIES Allergen Reactions - Penicillin Anaphylaxis Prescriptions Prior to Admission: aspirin 81 mg chewable tablet Take 81 mg by mouth once daily. Disp: Rfl: clopidogrel (PLAVIX) 75 mg tablet Take 75 mg by mouth once daily. Disp: Rfl: tamsulosin ER (FLOMAX) 0.4 mg cap Take 0.4 mg by mouth once daily. Disp: Rfl: magnesium oxide (MAG-OX) 400 mg (241.3 mg magnesium) tablet Take 400 mg by mouth twice daily. Disp: Rfl: atorvastatin (LIPITOR) 40 mg tablet Take 40 mg by mouth daily with dinner. Disp: Rfl: DATE OF LAST TETANUS: NA There is no immunization history on file for this patient. No past medical history on file. No past surgical history on file. Social History Marital status: Unknown Spouse name: Years of education: Number of children: Social History Main Topics Drug use: Unknown ROS: Is the patient having any pain? No 0 on a scale of 0 to 10 Constitutional: Negative Eye/Ear/Nose: Negative Respiratory: Negative Cardiovascular: Negative GI/Liver/Biliary: Positive for hematochezia and melena Genitourinary: Negative Psychiatric: Negative Neurologic: Negative Musculoskeletal: Negative Integument: Negative Endocrine: Negative Heme/Lymph: Negative Objective PRIMARY SURVEY AIRWAY: Patent BREATHING: Breath sounds equal CIRCULATION: PT/DP 2+, Radials 2+ DISABILITY: Eye: 4=Spontaneous Verbal: 5=Oriented and Converses Motor: 6=Obeys Commands Total GCS: 15=4 Resp Rate: 10 to 29=4 Syst BP: > than 89=4 REVISED TRAUMA SCORE: 12 EXPOSE / ENVIRONMENT: Warm Blankets PROCEDURES: NONE SECONDARY SURVEY VITALS: BP 119/68 Pulse (!) 127 Temp 36.5 ?C (97.7 ?F) (Axillary) Resp 12 Ht 180.3 cm (5' 11) Wt 90.3 kg (199 lb 1.2 oz) SpO2 96% BMI 27.77 kg/m? NEURO: Alert AND Oriented x 3, GCS 15, Cranial Nerves II-XII Intact, Moves All Extremities, Strength Symmetrical, No Sensory Deficits HEENT: Eyes: PERRL, conjunctiva/corneas without lesions, EOM intact, Ears: Canals without blood or CSF drainage, TMs clear, external ears without lacerations, Nose: Septum midline, no crepitus with motion, Throat: Oral mucosa without lacerations, teeth in place, tongue without lacerations, Longitudinal superficial scalp abrasion over the left forehead without active drainage. No evidence of foreign body. NECK: No midline pain with palpation, No pain with active ROM, No lacerations/wounds, No JVD, Trachea midline RESPIRATORY: No abrasions or contusions, No crepitus, No TTP, Equal Excursion CARDIOVASCULAR: S1S2 with no R/M/G, Radial pulse present bilaterally, Femoral pulse present bilaterally, Dorsalis pulse present bilaterally, tachycardic ABDOMEN: Non-distended, No scars or lacerations, Non-tenderness or peritoneal signs, No masses or organomegaly, Bowel sounds present all quads PELVIC/PERINEAL: Pelvis stable to palpation BACK/SPINE: Thoracolumbar spinal column non-tender, No step off or deformity noted, No external injury noted EXTREMITIES: PALACIOS, no edema, equal strength and sensation bilaterally RADIOLOGICAL/OTHER TEST DATA: CT Brain and C-spine: Per MICU note, CT Brain and C-spine negative for acute injuries. Will confirm with official reports. PRIOR TO ARRIVAL: N/A IMAGES As Above LABS: CBC, Coags, BMP, Mg, Phos Recent Labs 07/05/18 0900 07/05/18 0420 07/05/180 WBC -- -- 17.10* HB 9.3* -- 10.6* HCT -- -- 33.0* PLT -- -- 246 INR -- 1.01 -- NA -- -- 144 K -- -- 4.0 CHLOR -- -- 117* CO2 -- -- 19* BUN -- -- 34* CREAT -- -- 1.08 GLUC -- -- 115* CA -- -- 7.3* MG -- -- 2.0 P -- -- 2.2* Assessment/Plan DIAGNOSES: 1.) Left anterior scalp/forehead abrasion Medication and Non-Pharmacologic VTE Prophylaxis/Anticoagulants 07/05/18329 vte pharmacologic prophylaxis contraindicated ([place]) 07/05/18329 pneumatic compression stockings ([place] 07/05/18329 activity - mobilize patient ([place]) TREATMENT/EVALUATION PLANS: 62-year-old male with history of lower GI bleed and syncope s/p fall with forehead abrasion - Patient evaluated by myself and trauma attending Dr. Fowler - Scalp abrasion superficial - no indication for repair - Per MICU documentation, no evidence of intracranial bleed on CTH; CT C-Spine with no acute injuries - C-collar cleared - Neurovascular exam unremarkable - No concern for further traumatic injuries per clinical exam - Med management per primary - Trauma to S/O I saw and evaluated the patient. Discussed with the resident and agree with resident's findings and plan as documented in the resident's note. In examined at the time of the note on the at 12:30. He was alert and oriented. He denied any neck pain. C-collar was cleared at this time. His CT of his C-spine was negative as well. His CT of his head was negative. No other traumatic issues. Abdoulaye Sheriff PA-C 07/05/2018 12:30 pm FINAL INJURIES: No new injuries were identified after physical examination and review of final radiological reading(s) of all studies. Plan of care discussed with Staff Trauma Surgeon: Dr. Fowler at (time) 1230 Trauma Service Pager: For questions or concerns Mon-Fri 6a-5p please page [phone]. After 5pm and on Weekends and Holidays, please page [phone] if in ICU or [phone] if on RNF. SIGNATURE: Abdoulaye Sheriff PA-C PATIENT NAME: Francisca Velasquez DATE: July 05, 2018 TIME: 1:56 PM PAGER/CONTACT #: [phone] Previous Version Tom Magallanes MD MPH [facility] 07/05/2018 3:26 PM Addendum OPERATIVE/PROCEDURE REPORT LOG ID: [id number] Surgery/Procedure Date: 07/05/2018 Incision/Procedure Start Time: 3:11 PM Incision Close/Procedure End Time: 3:17 PM Surgeon(s)/Proceduralist(s) and Loss Prevention Auditor(s): Surgeon(s) and Role: * Tom Magallanes - Primary No Additional Staff Procedure(s): Esophagogastroduodenoscopy (EGD) with biopsy Anesthesia: Versed 2mg, Fentanyl 50mcg, Benadryl 50mcg IV Brief History: 62M with hx of UC x 30yrs, TIA (on ASA, Plavix) presenting with melena progressing to BRBPR starting yesterday and resulting in syncope. CT brain normal. Hb 9.3 on admission with tachycardia but normal BP. Currently in ICU. The risks, benefits and alternatives of the procedure were explained to the patient/responsible accompanying adult. This includes, but is not limited to, bleeding, infection and a 1:1000 risk of perforation. There is also a small risk of allergic reaction(s) due to sedatives, need for hospitalization, need for transfusions, need for surgery, and likelihood of missing a polyp or neoplastic lesion. The patient understands this and is amenable to proceeding. Procedure Details: The patient was placed in the left lateral decubitus position. A bite block was placed and medications administered as above. The Olympus gastroscope was used to intubate the oropharynx and esophagus with ease. We proceeded down to the second part of the duodenum. The duodenal mucosa and bulb appeared normal. We then withdrew into the stomach and visualized a normal antrum and body. Biopsies were taken to rule out H. Pylori. Retroflexion was performed and this showed a normal fundus and cardia. The squamocolumnar junction, GE junction and esophagus appeared normal apart from a 2-3cm sliding HH. The scope was then withdrawn and the patient tolerated the procedure well. Pre-Op/Pre-Procedure Diagnosis: Melena Post-Op/Post-Procedure Diagnosis: Normal gastroscopy apart from 2-3cm sliding hiatus hernia Biopsies taken to rule out H. Pylori Specimens: See above EBL: None Complications: None Recommendations: F/U pathology Given BRBPR and hx of UC, will arrange for c-scope on Sunday Check CRP and lactate If he decompensates, can do CT abdo to look for cause of bleeding and may need to expedite c-scope on weekend. Will follow for now The primary surgeon/proceduralist performed the entire procedure. Tom Magallanes MD MPH [facility] SIGNATURE: Tom Magallanes MD MPH [facility] PATIENT NAME: Francisca Velasquez DATE: July 05, 2018 TIME: 3:22 PM PAGER/CONTACT #: [phone] Previous Version RT Elsa, Tech 07/05/2018 11:28 PM Signed RADIOLOGY SERVICE PROGRESS NOTE SERVICE DATE: 07/05/2018 SERVICE TIME: 11:27 PM PATIENT IDENTITY VERIFICATION COMPLETED USING TWO (2) METHODS: Patient confirmed name and Date of verbally. PATIENT GENDER DATA: .male ALLERGIES: Reviewed and unchanged MEDICATIONS REVIEWED: Yes PATIENT RELEVANT IMPLANT DATA REVIEWED: Not Applicable CREATININE: Creatinine Date Value Ref Range Status 07/05/2018 1.08 0.67 - 1.17 mg/dL Final P.O.C.T. RESULTS: N/A July 05, [address] PERFORMED: No IV SITE: Inpatient - refer to [facility] documentation POST EXAM PIV STATUS: Left in for next appointment PROCEDURE TYPE: NM INJECT: GI BLEED. 20 mCi Tc99m ULTRATAG. No other medications given.. ADMINISTRATION TIME: 11:20PM PATIENT DISCHARGED TO: Patient taken to IP transport area for return to RNF/ICU/ED. A Diagnostic radioactive procedure has taken place, with no further precautions necessary other than routine body substance precautions. More information regarding radiation safety can be found using this link: [email or web address] SIGNATURE: RT Elsa PATIENT NAME: Francisca Velasquez DATE: July 05, 2018 TIME: 11:27 PM PAGER/CONTACT #: Nayely Plascencia DO, MBA 07/07/2018 10:37 AM Signed Urology Consultation ADMISSION DATE: 07/05/2018 SERVICE DATE: 07/06/2018 REQUESTING PHYSICIAN: Ric Melgar MD REASON FOR CONSULT: R hydronephrosis with 7 mm stone ASSESSMENT/PLAN: 7 mm proximal R ureteral calculus with hydronephrosis - asymptomatic - No acute inpatient intervention at this time - asymptomatic, normal Cr, UCx no growth - Medical expulsive therapy at this time: continue Flomax, strain urine, treat symptoms - Check KUB - Outpatient follow up with his Urologist in [place] - Call if he develops R flank pain, fevers > 38.5, or concern for sepsis - Will sign off, call with questions HISTORY OF PRESENT ILLNESS: The patient is a 62 year old male with a PMHx of ulcerative colitis, prior hx of nephrolithiasis, known to Urology in [place]. Has had stones treated with ESWL 3-4 years ago, has also passed small stones since then on his own. Presented to ER after he had a syncopal event in his bathroom at home, with associated hematochezia. Patient had a TIA 5 weeks ago and was then started on Plavix. On arrival, he had a CT Abdomen/Pelvis that showed a 7 mm proximal R ureteral calculus with associated R hydronephrosis. Patient denies any R flank pain or abdominal pain. No dysuria, hematuria, incomplete emptying. On Flomax at home. No fevers, chills, nausea or vomiting. PAST MEDICAL HISTORY: No past medical history on file. PAST SURGICAL HISTORY: No past surgical history on file. ALLERGIES: ALLERGIES Allergen Reactions - Penicillin Anaphylaxis HOME MEDICATIONS: Prescriptions Prior to Admission: aspirin 81 mg chewable tablet Take 81 mg by mouth once daily. Disp: Rfl: clopidogrel (PLAVIX) 75 mg tablet Take 75 mg by mouth once daily. Disp: Rfl: tamsulosin ER (FLOMAX) 0.4 mg cap Take 0.4 mg by mouth once daily. Disp: Rfl: magnesium oxide (MAG-OX) 400 mg (241.3 mg magnesium) tablet Take 400 mg by mouth twice daily. Disp: Rfl: atorvastatin (LIPITOR) 40 mg tablet Take 40 mg by mouth daily with dinner. Disp: Rfl: FAMILY HISTORY: No family history on file. Social History: Tobacco Use: Not on file Alcohol Use: Not on file ROS: Constitutional: negative for chills and fevers HEENT: no blurry vision or eye redness Respiratory: negative for hemoptysis and shortness of breath Cardiovascular: syncope Gastrointestinal: hematochezia Genitourinary:negative for dysuria and hematuria Hematologic/lymphatic: negative for bleeding Integumentary: no new bruises or lesions Musculoskeletal:negative for muscle weakness Neurological: negative for coordination problems and seizures All other systems negative PHYSICAL EXAM: VITALS: 07/06/18 0900 07/06/18 1000 07/06/18 1100 07/06/18 1138 BP: 154/72 152/71 121/83 125/65 Pulse: 106 101 90 87 Resp: 14 14 19 Temp: 36.7 ?C (98.1 ?F) 36.9 ?C (98.4 ?F) 37 ?C (98.6 ?F) 36.2 ?C (97.2 ?F) TempSrc: Axillary Axillary Axillary SpO2: 99% 96% 97% 93% Weight: Height: General: Alert, in no acute distress Head: Normocephalic, abrasion to forehead Neck: supple, trachea is midline, no obvious masses Respiratory: normal effort, no audible wheezes Cardiovascular: regular pulse and no cyanosis Musculoskeletal: moving all extremities, normal tone Skin: warm and dry Psych: normal mood and affect, oriented Abdomen: soft, non distended, non tender, no organomegaly, no hernias : No CVA tenderness DATA: LABS: BMP: . Glucose (mg/dL) Date Value 07/06/2018 96 Potassium (mEq/L) Date Value 07/06/2018 3.7 Sodium (mEq/L) Date Value 07/06/2018 143 Chloride (mEq/L) Date Value 07/06/2018 114 CO2 (mEq/L) Date Value 07/06/2018 21 Creatinine (mg/dL) Date Value 07/06/2018 1.06 BUN (mg/dL) Date Value 07/06/2018 24 Anion Gap (no units) Date Value 07/06/2018 12 Calcium (mg/dL) Date Value 07/06/2018 6.8 CBC: HGB (g/dL) Date Value 07/06/2018 8.3 Hematocrit (%) Date Value 07/06/2018 26.4 WBC (thou/cmm) Date Value 07/05/2018 17.10 Platelet Count (thou/cmm) Date Value 07/05/2018 246 Urinalysis: Specific [place], Ur Date Value Ref Range Status 07/05/2018 1.026 1.005 - 1.030 Final Glucose, Urine Date Value Ref Range Status 07/05/2018 NEGATIVE Negative mg/dL Final Bilirubin, Urine Date Value Ref Range Status 07/05/2018 NEGATIVE Negative Final Ketones, Urine Date Value Ref Range Status 07/05/2018 NEGATIVE Negative mg/dL Final Protein, Urine Date Value Ref Range Status 07/05/2018 NEGATIVE Negative mg/dL Final Urobilinogen, Urine Date Value Ref Range Status 07/05/2018 0.2 0.0 - 1.0 EU/dL Final Nitrites Urine Date Value Ref Range Status 07/05/2018 NEGATIVE Negative Final WBC, Urine Date Value Ref Range Status 07/05/2018 13.7 (H) 0.0 - 5.0 /hpf Final Urine Culture: Urine Culture (no units) Date Value 07/05/2018 No growth RADIOLOGY: CT ABD/PEL 07/05/2018 IMPRESSION: 1. ?Moderate right hydroureteronephrosis secondary to a proximal/mid right ureteral stone measuring 7 mm. 2. ?Study is nondiagnostic for GI bleed given the presence of oral contrast. ASSESSMENT/PLAN: 62 year old male with 7 mm R proximal ureteral stone, hydronephrosis - Asymptomatic, afebrile, Cr wnl, UCx no growth - KUB - Strain all urine - MET with Flomax, pain meds if needed - UCx negative for infection - Outpatient follow up for stone management with his Urologist in [place] - No further intervention, call if patient becomes febrile > 38.5, hypotensive (<90), or concern for sepsis from stone - D/w Dr. Plascnecia Thank you for allowing me to participate in the care of your patient SIGNATURE: Julian Saini MD PATIENT NAME: Francisca Velasquez DATE: 07/06/2018 TIME: 12:40 PM PAGER: [phone] Attending Note I evaluated the patient and personally participated in the monson components. I agree with the resident's findings and plan as documented and have discussed the case and management of the patient's care with the resident. Signature: Nayely Plascencia DO, MBA Date: 07/07/2018 Time: 10:37 AM Previous Version Luis Felipe Burch Jr, MD 07/06/2018 9:36 PM Signed Medical Intensive Care Progress Note July 06, 2018 Patient Name: Francisca Velasquez Patient Location: [id number]* Admission Date: 07/05/2018 Length of Stay: 1 Primary Service: Medical Intensive Care Interval History for 07/06/18: Patient seen and examined in the AM. Patient was doing well this morning. Did have bloody BM last night and Hb dropped, so was transfused. EGD did not reveal anything so would need colonoscopy. Will call GI to see when they would want to do it. Bleeding scan last night was negative. Abdominal CT + for right ureteral stone urology recommended outpatient follow up. Cleared from trauma Review of Systems Gastrointestinal: Positive for blood in stool. Objective Present Condition: 07/06/18 0900 07/06/18 1000 07/06/18 1100 07/06/18 1138 BP: 154/72 152/71 121/83 125/65 Pulse: 106 101 90 87 Resp: 14 21 14 19 Temp: 36.7 ?C (98.1 ?F) 36.9 ?C (98.4 ?F) 37 ?C (98.6 ?F) 36.2 ?C (97.2 ?F) TempSrc: Axillary Axillary Axillary SpO2: 99% 96% 97% 93% Weight: Height: Physical Exam Constitutional: He is oriented to person, place, and time. Cardiovascular: Normal rate and regular rhythm. Pulmonary/Chest: Breath sounds normal. Abdominal: Bowel sounds are normal. He exhibits no distension. There is no tenderness. Musculoskeletal: He exhibits no edema. Neurological: He is alert and oriented to person, place, and time. Current Facility-Administered Medications: [START ON 07/07/2018] pantoprazole 40 mg injection (PROTONIX) 40 mg INTRAVENOUS DAILY (6 AM) Ke (Res) Danay tamsulosin ER 0.4 mg cap(s) (FLOMAX) 0.4 mg ORAL DAILY Julian (Res) Parveen potassium chloride 80-120 mEq oral liquid 80-120 mEq ORAL/FEEDING TUBE PRN Jaz Erindayamilethni (Res) Vipin potassium chloride iv piggyback 20 mEq/100 mL 20 mEq INTRAVENOUS PRN Jazcristin Paceyadarshini (Res) Vipin magnesium sulfate in water 2 g in sterile water 50 ml 2 g INTRAVENOUS PRN Jaz Priyadarshini (Res) Vipin sodium glycerophosphate 45 mmol in NaCl 0.9% 250 mL (GLYCOPHOS) 45 mmol INTRAVENOUS PRN Jaz Katelynnyadarshini (Res) Vipin Last Rate: 31.25 mL/hr at 07/05/18 0606 45 mmol at 07/05/18 0606 calcium gluconate 4 g in NaCl 0.9% 250 mL 4 g INTRAVENOUS PRN Jaz Linares (Res) Vipin lactated ringers infusion 100 mL/hr INTRAVENOUS CONTINUOUS Jaz Linares (Res) Vipin Last Rate: 100 mL/hr at 07/06/18 1138 100 mL/hr at 07/06/18 1138 ciprofloxacin 400 mg in D5W 200 mL (CIPRO) 400 mg INTRAVENOUS q 12 H Ke (Res) Atassi Last Rate: 200 mL/hr at 07/06/18 0915 400 mg at 07/06/18 0915 perflutren lipid microspheres 1.1 mg/mL 1.3 mL injection (DEFINITY) 1.3 mL INTRAVENOUS DIRECTED PRN Ke (Res) Atassi iv contrast (radiology procedure) INTRAVENOUS DIRECTED PRN Elias (Res) MD Daniele And enteric contrast (radiology procedure) ORAL DIRECTED PRN Elias (Res) MD Daniele Labs: CBC: Recent Labs 07/06/18 1000 07/06/18 0325 07/05/18 2156 07/05/18 1600 07/05/18 0900 07/05/18 0330 WBC -- -- -- -- -- 17.10* HB 8.3* 8.9* 7.0* 7.5* 9.3* 10.6* HCT -- 26.4* -- -- -- 33.0* PLT -- -- -- -- -- 246 MCV -- -- -- -- -- 90.2 COAG: Recent Labs 07/05/18 0420 INR 1.01 BMP: Recent Labs 07/06/18 0325 07/05/18 0330 GLUC 96 115* NA 143 144 K 3.7 4.0 CHLOR 114* 117* CO2 21 19* ANION 12 12 BUN 24* 34* CREAT 1.06 1.08 CHEM: Recent Labs 07/06/18 0325 07/05/18 1600 07/05/18 0330 ALB -- 2.1* -- TPROT -- 4.4* -- CA 6.8* -- 7.3* MG -- -- 2.0 HEPATIC: Recent Labs 07/05/18 1600 ALKPHOS 42* ALT 23 AST 36 TBILI 0.7 URINALYSIS: Recent Labs 07/05/18 0940 SPGR 1.026 UGLUC NEGATIVE UBILI NEGATIVE UKET NEGATIVE UPROT NEGATIVE UROBIL 0.2 UWBC 13.7* CARDIAC: No results for input(s): CKTEST, CKMB, CKMBP in the last 168 hours.TROPONIN@:8,No results found for: BNP:8)@ Intake/Output Summary (Last 24 hours) at 07/06/18 1318 Last data filed at 07/06/18 1147 Gross per 24 hour Intake 5270 ml Output 1200 ml Net 4070 ml Serum creatinine: 1.06 mg/dL 07/06/18 0325 Estimated creatinine clearance: 77.9 mL/min Subjective No past medical history on file. No current facility-administered medications on file prior to encounter. No current outpatient prescriptions on file prior to encounter. Assessment/Plan Reviewed in its entirety and amended as appropriate on 07/06/18 Gastrointestinal - Acute blood loss anemia - 2/2 to GI bleed, GI consulted - Hx of UC - Transfused 2 U of packed RBCs - Hb q6, transfuse <7 - Hold plavix and ASA - INR wnl ? Hematologic - Acute blood loss anemia - Given 3 U of packed RBCs here, and 2 U at OSH - Hb increased at 10.3 - Leukocytosis at 17.10, likely reactive/ UTI ? Neuro - Syncope most Likely 2/2 to being hypotensive - CT negative - TIA last month, on Plavix and ASA, now held - Trauma consulted, for unwitnessed fall, cleared off ? Infectious - UTI - treating with ciprofloxacin, penicillin allergy - Urine cx to follow ? Signed: Caio Meza MD, PGY-1 Pager: [phone] Date: July 06, 2018 Time: 1:18 PM Recommendations are not finalized until co-signed by Staff physician. [facility] STAFF PHYSICIAN NOTE OF PERSONAL INVOLVEMENT IN CARE I have reviewed the documentation by the resident and I personally participated in the monson components. I have discussed the case and management of the patient's care. The following comments revise or confirm relevant monson components of the note. IMPRESSION: Critical Care Documentation: The patient has the following organ/system impairment(s): Acute blood loss ? 1. Probable lower GI bleed 2. Hx of ulcerative colitis 3. Syncope (unwitnessed) with scalp laceration but no obvious bone or ligamentous injury 4. Lactic acidosis resolved 5. Continued anemia without recurrent bleeding but will observe in ICU and obtain CT abd pelvis 6. Recent TIA and was treated with asa and plavix MMP ? PLAN: Now stable hgb and no recurrent bleeding today Colonoscopy Sunday if bleeding stops and stable over weekend. Hgb q 6 hours overnight and if stable in am, stable to floor Monitor in ICU tonight Discussed with staff/ patient/ family This patient has a high probability of sudden, clinically significant deterioration, which requires the highest level of physician preparedness to intervene urgently. I managed/supervised life or organ supporting interventions that required frequent physician assessment. I devoted my full attention to the direct care of this patient for the amount of time indicated below. Time I spent with family or surrogate(s) is included only if the patient was incapable of providing the necessary information or participating in medical decision making. Time devoted to teaching is not included. Time spent providing critical care services: 40 minutes excluding procedures. SIGNATURE: Luis Felipe Burch Jr, MD [facility] TIME of SERVICE: 9:34 PM Previous Version Tom Magallanes MD MPH [facility] 07/06/2018 4:51 PM Signed SUBJECTIVE: Francisca Velasquez was seen in follow up regarding possible GI bleed He had a few episodes of dark red stool yesterday after his EGD. No further melena or hematochezia today. No abdominal pain. No vomiting. He had CT abdomen and RBC tagged scan which were negative. Current Facility-Administered Medications: [START ON 07/07/2018] pantoprazole 40 mg injection (PROTONIX) 40 mg INTRAVENOUS DAILY (6 AM) tamsulosin ER 0.4 mg cap(s) (FLOMAX) 0.4 mg ORAL DAILY potassium chloride 80-120 mEq oral liquid 80-120 mEq ORAL/FEEDING TUBE PRN potassium chloride iv piggyback 20 mEq/100 mL 20 mEq INTRAVENOUS PRN magnesium sulfate in water 2 g in sterile water 50 ml 2 g INTRAVENOUS PRN sodium glycerophosphate 45 mmol in NaCl 0.9% 250 mL (GLYCOPHOS) 45 mmol INTRAVENOUS PRN calcium gluconate 4 g in NaCl 0.9% 250 mL 4 g INTRAVENOUS PRN lactated ringers infusion 100 mL/hr INTRAVENOUS CONTINUOUS ciprofloxacin 400 mg in D5W 200 mL (CIPRO) 400 mg INTRAVENOUS q 12 H perflutren lipid microspheres 1.1 mg/mL 1.3 mL injection (DEFINITY) 1.3 mL INTRAVENOUS DIRECTED PRN iv contrast (radiology procedure) INTRAVENOUS DIRECTED PRN And enteric contrast (radiology procedure) ORAL DIRECTED PRN ALLERGIES Allergen Reactions - Penicillin Anaphylaxis Interim Labs and/or Imaging: Most recent labs Most recent imaging HGB (g/dL) Date Value 07/06/2018 7.9 Hematocrit (%) Date Value 07/06/2018 23.7 WBC (thou/cmm) Date Value 07/06/2018 12.12 Lab Results Component Value Date TBILI 0.7 07/05/2018 CREAT 1.06 07/06/2018 INR 1.01 07/05/2018 ALB 2.1 (L) 07/05/2018 ALKPHOS 42 (L) 07/05/2018 AST 36 07/05/2018 ALT 23 07/05/2018 TPROT 4.4 (L) 07/05/2018 Endoscopic Procedures: EGD yesterday REVIEW OF SYSTEMS: GASTROINTESTINAL: SEE ABOVE CARDIOVASCULAR: NONE RESPIRATORY: NONE PHYSICAL EXAMINATION: BP 115/59 Pulse 96 Temp (Src) 99.1 (Axillary) Resp 21 Ht 5' 11 (1.80m) Wt 199 lb 1.2 oz (90.3kg) SpO2 96% BMI 27.78 kg/(m2). GENERAL APPEARANCE: Well appearing, alert, in no acute distress, well-hydrated, well nourished. SKIN: Skin color, texture, turgor normal, no suspicious rashes or lesions. EYES: Anicteric sclera. Pupils are equally round and reactive to light. Extraocular movements are intact. LUNGS: Lungs clear to auscultation. No wheezing, rhonchi, rales. HEART: RRR without murmur, gallop, or rubs. No ectopy. ABDOMEN: Abdomen soft, non-tender, non distended. Bowel sounds normal. No masses, ascites or hepatosplenomegaly. PLAN: 62M with hx of UC x 30yrs, TIA (on ASA, Plavix) presenting with melena progressing to BRBPR starting yesterday and resulting in syncope. CT brain normal. Hb 9.3 on admission with tachycardia but normal BP. Currently in ICU. - Hold Plavix and ASA - EGD done and mostly normal. CT abdo and RBC tagged scan unremarkable CRP and lactate mostly normal. - Will need colonoscopy given history of UC. Plan for Sunday as he is currently stable. Keep on clear liquid diet. We'll start prep Sunday afternoon - He can be moved to [facility] [place] when stable. Tom Magallanes MD MPH [facility] Luis Felipe Burch Jr, MD 07/07/2018 2:29 PM Signed Medical Intensive Care Progress Note July 07, 2018 Patient Name: Francisca Velasquez Patient Location: [id number]/[facility]* Admission Date: 07/05/2018 Length of Stay: 2 Primary Service: Medical Intensive Care Interval History for 07/07/18: Patient seen and examined in the AM. Patient was doing well this morning. Had large dark bloody bowel movement. No active bleeding from other sites. He denies abdominal pain, nausea or vomiting. HGB dropped to 5.9 this AM. Given 1 unit of RBC and I unit of pooled platelets Review of Systems Gastrointestinal: Positive for blood in stool. Objective Present Condition: 07/07/18 1129 07/07/18 1147 07/07/18 1207 07/07/18 1222 BP: 96/50 97/51 109/86 109/52 Pulse: 99 (!) 139 Resp: 22 17 Temp: 36.5 ?C (97.7 ?F) (!) 35.8 ?C (96.4 ?F) TempSrc: Axillary Axillary Axillary Axillary SpO2: Weight: Height: Physical Exam Constitutional: He is oriented to person, place, and time. Cardiovascular: Normal rate and regular rhythm. Pulmonary/Chest: Breath sounds normal. Abdominal: Bowel sounds are normal. He exhibits no distension. There is no tenderness. Musculoskeletal: He exhibits no edema. Neurological: He is alert and oriented to person, place, and time. Current Facility-Administered Medications: pantoprazole 40 mg injection (PROTONIX) 40 mg INTRAVENOUS DAILY (6 AM) Ke (Res) Atassi 40 mg at 07/07/18 0514 tamsulosin ER 0.4 mg cap(s) (FLOMAX) 0.4 mg ORAL DAILY Julian (Res) Parveen 0.4 mg at 07/07/18 0848 potassium chloride 80-120 mEq oral liquid 80-120 mEq ORAL/FEEDING TUBE PRN Jaz Linares (Res) Vipin potassium chloride iv piggyback 20 mEq/100 mL 20 mEq INTRAVENOUS PRN Jaz Linares (Res) Vipin magnesium sulfate in water 2 g in sterile water 50 ml 2 g INTRAVENOUS PRN Jaz Linares (Res) Vipin sodium glycerophosphate 45 mmol in NaCl 0.9% 250 mL (GLYCOPHOS) 45 mmol INTRAVENOUS PRN Jaz Linares (Res) Vipin Last Rate: 31.25 mL/hr at 07/05/18 0606 45 mmol at 07/05/18 0606 calcium gluconate 4 g in NaCl 0.9% 250 mL 4 g INTRAVENOUS PRN Jaz Linares (Res) Vipin lactated ringers infusion 100 mL/hr INTRAVENOUS CONTINUOUS Jaz Lockettni (Res) Vipin Last Rate: 100 mL/hr at 07/07/18 1129 100 mL/hr at 07/07/18 1129 ciprofloxacin 400 mg in D5W 200 mL (CIPRO) 400 mg INTRAVENOUS q 12 H Ke (Res) Atassi Last Rate: 200 mL/hr at 07/07/18 1008 400 mg at 07/07/18 1008 perflutren lipid microspheres 1.1 mg/mL 1.3 mL injection (DEFINITY) 1.3 mL INTRAVENOUS DIRECTED PRN Ke (Res) Atassi iv contrast (radiology procedure) INTRAVENOUS DIRECTED PRN Rami (Res) MD Daniele Labs: CBC: Recent Labs 07/07/18 1050 07/07/18 0300 07/06/18 2140 07/06/18 1500 07/06/18 1000 07/06/18 0325 07/05/18 2156 07/05/18 1600 07/05/18 0330 WBC -- -- -- 12.12* -- -- -- -- -- 17.10* HB 5.9* 7.1* 7.5* 7.9* 8.3* 8.9* 7.0* 7.5* < > 10.6* HCT -- -- -- 23.7* -- 26.4* -- -- -- 33.0* PLT -- -- -- 143 -- -- -- -- -- 246 MCV -- -- -- 89.4 -- -- -- -- -- 90.2 < > = values in this interval not displayed. COAG: Recent Labs 07/05/18 0420 INR 1.01 BMP: Recent Labs 07/06/18 0325 07/05/18 0330 GLUC 96 115* NA 143 144 K 3.7 4.0 CHLOR 114* 117* CO2 21 19* ANION 12 12 BUN 24* 34* CREAT 1.06 1.08 CHEM: Recent Labs 07/06/18 0325 07/05/18 1600 07/05/18 0330 ALB -- 2.1* -- TPROT -- 4.4* -- CA 6.8* -- 7.3* MG -- -- 2.0 HEPATIC: Recent Labs 07/05/18 1600 ALKPHOS 42* ALT 23 AST 36 TBILI 0.7 URINALYSIS: Recent Labs 07/05/18 0940 SPGR 1.026 UGLUC NEGATIVE UBILI NEGATIVE UKET NEGATIVE UPROT NEGATIVE UROBIL 0.2 UWBC 13.7* CARDIAC: No results for input(s): CKTEST, CKMB, CKMBP in the last 168 hours.TROPONIN@:8,No results found for: BNP:8)@ Intake/Output Summary (Last 24 hours) at 07/07/18 1333 Last data filed at 07/07/18 1148 Gross per 24 hour Intake 4859 ml Output 3220 ml Net 1639 ml Subjective No past medical history on file. No current facility-administered medications on file prior to encounter. No current outpatient prescriptions on file prior to encounter. Assessment/Plan Reviewed in its entirety and amended as appropriate on 07/07/18 Gastrointestinal - Acute blood loss anemia - 2/2 to GI bleed, GI consulted - Hx of UC - HGB dropped to 5.9 this AM. Given 1 unit of RBC and 1 unit of pooled platelets - Hb q6, transfuse <7 - Hold plavix and ASA - INR wnl ? Hematologic - Acute blood loss anemia - Given 4 U of packed RBCs here, and 2 U at OSH ? Neuro - Syncope most likely 2/2 to being hypotensive - CT negative - TIA last month, on Plavix and ASA, now held - Trauma consulted, for unwitnessed fall, cleared off ? Infectious - UTI - treating with ciprofloxacin, penicillin allergy - Urine cx shows no growth - MRSA culture negative ? Signed: yTler Santana MD, PGY-1 Pager: [phone] Date: July 07, 2018 Time: 1:[address] [facility] STAFF PHYSICIAN NOTE OF PERSONAL INVOLVEMENT IN CARE I have reviewed the documentation by the resident and I personally participated in the monson components. I have discussed the case and management of the patient's care. The following comments revise or confirm relevant monson components of the note. Continues to have intermittent recurrent bleeding Discussed with GI, , patient Agreeable to platelet transfusion with next blood transfusion Keep Hgb > 7 IMPRESSION: Critical Care Documentation: The patient has the following organ/system impairment(s): ?Acute blood loss anemia ? 1. Recurrent lower GI bleed 2. Hx of ulcerative colitis 3. Syncope (unwitnessed) with scalp laceration but no obvious bone or ligamentous injury - cleared by trauma service 4. Lactic acidosis resolved 5. Tachycardia with anemia 6. Recent TIA and was treated with asa and plavix - now stopped and given recurrent bleeding I discussed transfusion of both platelets and blood as above MMP ? PLAN: Transfuse to keep hgb >7, normal INR Transfuse platelets as he has recurrent bleeding (as above) Colonoscopy Sunday Hgb q 6 hours Continue to monitor in MICU Discussed with staff/ patient/ family This patient has a high probability of sudden, clinically significant deterioration, which requires the highest level of physician preparedness to intervene urgently. I managed/supervised life or organ supporting interventions that required frequent physician assessment. I devoted my full attention to the direct care of this patient for the amount of time indicated below. Time I spent with family or surrogate(s) is included only if the patient was incapable of providing the necessary information or participating in medical decision making. Time devoted to teaching is not included. Time spent providing critical care services: 35 minutes excluding procedures. SIGNATURE: Luis Felipe Burch Jr, MD [facility] TIME of SERVICE: 2:21 PM Previous Version Tom Magallanes MD MPH [facility] 07/07/2018 3:25 PM Signed SUBJECTIVE: Francisca Velasquez was seen in follow up regarding possible GI bleed He had a few episodes of dark red stool Frday after his EGD. No further melena or hematochezia Sat. No abdominal pain. No vomiting. He did have 1 episode of possible melena today He had CT abdomen and RBC tagged scan which were negative. Current Facility-Administered Medications: pantoprazole 40 mg injection (PROTONIX) 40 mg INTRAVENOUS DAILY (6 AM) tamsulosin ER 0.4 mg cap(s) (FLOMAX) 0.4 mg ORAL DAILY potassium chloride 80-120 mEq oral liquid 80-120 mEq ORAL/FEEDING TUBE PRN potassium chloride iv piggyback 20 mEq/100 mL 20 mEq INTRAVENOUS PRN magnesium sulfate in water 2 g in sterile water 50 ml 2 g INTRAVENOUS PRN sodium glycerophosphate 45 mmol in NaCl 0.9% 250 mL (GLYCOPHOS) 45 mmol INTRAVENOUS PRN calcium gluconate 4 g in NaCl 0.9% 250 mL 4 g INTRAVENOUS PRN lactated ringers infusion 100 mL/hr INTRAVENOUS CONTINUOUS ciprofloxacin 400 mg in D5W 200 mL (CIPRO) 400 mg INTRAVENOUS q 12 H perflutren lipid microspheres 1.1 mg/mL 1.3 mL injection (DEFINITY) 1.3 mL INTRAVENOUS DIRECTED PRN iv contrast (radiology procedure) INTRAVENOUS DIRECTED PRN ALLERGIES Allergen Reactions - Penicillin Anaphylaxis Interim Labs and/or Imaging: Most recent labs Most recent imaging HGB (g/dL) Date Value 07/07/2018 5.9 Hematocrit (%) Date Value 07/06/2018 23.7 WBC (thou/cmm) Date Value 07/06/2018 12.12 Lab Results Component Value Date TBILI 0.7 07/05/2018 CREAT 1.06 07/06/2018 INR 1.01 07/05/2018 ALB 2.1 (L) 07/05/2018 ALKPHOS 42 (L) 07/05/2018 AST 36 07/05/2018 ALT 23 07/05/2018 TPROT 4.4 (L) 07/05/2018 Endoscopic Procedures: EGD yesterday REVIEW OF SYSTEMS: GASTROINTESTINAL: SEE ABOVE CARDIOVASCULAR: NONE RESPIRATORY: NONE PHYSICAL EXAMINATION: BP 120/74 Pulse 105 Temp (Src) 97.7 (Axillary) Resp 21 Ht 5' 11 (1.80m) Wt 199 lb 1.2 oz (90.3kg) SpO2 97% BMI 27.78 kg/(m2). GENERAL APPEARANCE: Well appearing, alert, in no acute distress, well-hydrated, well nourished. SKIN: Skin color, texture, turgor normal, no suspicious rashes or lesions. EYES: Anicteric sclera. Pupils are equally round and reactive to light. Extraocular movements are intact. LUNGS: Lungs clear to auscultation. No wheezing, rhonchi, rales. HEART: RRR without murmur, gallop, or rubs. No ectopy. ABDOMEN: Abdomen soft, non-tender, non distended. Bowel sounds normal. No masses, ascites or hepatosplenomegaly. PLAN: 62M with hx of UC x 30yrs, TIA (on ASA, Plavix) presenting with melena progressing to BRBPR starting yesterday and resulting in syncope. CT brain normal. Hb 9.3 on admission with tachycardia but normal BP. Currently in ICU. - Hold Plavix and ASA - EGD done and mostly normal. CT abdo and RBC tagged scan unremarkable CRP and lactate mostly normal. - Recurrent drop in hemoglobin but without significant overt blood loss. HD stable. Will need colonoscopy given history of UC. Plan for Sunday as he is currently stable. Keep on clear liquid diet. We'll start prep this afternoon - He can be moved to [facility] [place] when stable. Tom Magallanes MD MPH [facility] Dilip Ibanez, RN, RN 07/08/2018 9:16 AM Signed CARE MANAGEMENT: ASSESSMENT AND DISCHARGE PLAN SERVICE DATE: 07/08/2018 SERVICE TIME: 9:07 AM PRIMARY CARE PHYSICIAN: No primary care provider on file. 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 No Advance Directive: Health Literacy: 1. How often do you need to have someone help you when you read instructions, pamphlets, or other written material from your doctor or pharmacy? Never - 1 2. How confident are you filling out medical forms by yourself? Extremely - 1 If Patient scores > 3 on either question, the following interventions were put into place: Patient did not score > 3 FUNCTIONAL AND COGNITIVE/BEHAVIORAL PRIOR TO ADMISSION: Baseline Mental Status: Alert AND Oriented, Person, Place , Time and Situation Functional Status: Independent Does Patient Currently Receive Any Community Services or Home Care? None Equipment Prior to Admission: None Has the Patient Been in a Prison Facility in the Past 30 days? 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 Yes Patient's transition needs and plan for meeting these needs: TBD Does the patient have an acute stroke diagnosis, or has the patient had a stroke during this admission? No Medication Adherence: I am convinced of the importance of my prescription medication: Agree mostly - 0 I worry that my prescription medication will do more harm than good to me Disagree mostly - 0 I feel financially burdened by my [id number] expenses for my prescription medication: Disagree mostly -0 Patient is categorized as low risk < 2 Are you interested in bedside delivery of your medications? No Food Concerns: In the Last Month, Have You had Trouble Getting Food? No trouble getting food During the Last Month, Have You Worried Whether Your Food Would Run Out Before You Had Enough Money to Buy More? No Is the Patient Psychosocially Complex? No ASSESSMENT AND PLAN: Medical Needs: None Psychosocial Needs: None FREEDOM OF CHOICE EXPLAINED: N/A POTENTIAL TRANSITION PLANS Home Pharmacy: [facility] Plan for Colonoscopy today. SIGNATURE: Dilip Ibanez RN PATIENT NAME: Francisca Velasquez DATE: July 08, 2018 TIME: 9:07 AM PAGER/CONTACT #: [phone] Tom Magallanes MD MPH [facility] 07/08/2018 10:54 AM Signed OPERATIVE/PROCEDURE REPORT LOG ID: [id number] Surgery/Procedure Date: 07/08/2018 Incision/Procedure Start Time: Incision Close/Procedure End Time: Surgeon(s)/Proceduralist(s) and Loss Prevention Auditor(s): Surgeon(s) and Role: * Tom Magallanes - Primary No Additional Staff Procedure(s): Colonoscopy Anesthesia: Monitored Anesthesia Care Brief History: 62M with hx of UC x 30yrs (not on tx, in clinical remission), TIA (on ASA, Plavix) presenting with melena progressing to BRBPR starting 07/04 and resulting in syncope. CT brain normal. Hb 9.3 on admission with tachycardia but normal BP. Currently in ICU. Hb dropped to 5.9 yesterday. Having maroon stools. EGD 07/[address] abdo and RBC tagged scan also normal. The risks, benefits and alternatives of the procedure were explained to the patient/responsible accompanying adult. This includes, but is not limited to, bleeding, infection and a 1:1000 risk of perforation. There is also a small risk of allergic reaction(s) due to sedatives, need for hospitalization, need for transfusions, need for surgery, and likelihood of missing a polyp or neoplastic lesion. The patient understands this and is amenable to proceeding. Procedure Details: The patient was placed in the left lateral decubitus position. A digital rectal exam was performed and this was normal. The Olympus colonoscope was introduced into the rectum and advanced to the terminal ileum for 15cm. The procedure was not technically difficult. The cecum was identified by the appendiceal orifice and the ileocecal valve. The bowel preparation was fair with a lot of residual old blood and a few clots, and the total withdrawal time was 10 minutes. The scope was then slowly withdrawn and the mucosal folds examined in detail. Old blood and clots were noted throughout the colon and into the TI. Moderate sigmoid diverticulosis was noted. There was no focal lesion or diverticulum that was actively bleeding or had stigmata of recent bleeding. The mucosa was normal. Retroflexion was performed and this showed no abnormalities. The scope was then withdrawn and the patient tolerated the procedure well. Pre-Op/Pre-Procedure Diagnosis: LGIB Post-Op/Post-Procedure Diagnosis: Moderate sigmoid diverticulosis Old blood and few clots throughout colon and TI No actively bleeding lesion seen. No stigmata of recent bleeding Specimens: See above EBL: None Complications: None Recommendations: Will arrange capsule endoscopy today to assess May need CT enterography The primary surgeon/proceduralist performed the entire procedure. Tom Magallanes MD MPH [facility] SIGNATURE: Tom Magallanes MD MPH [facility] PATIENT NAME: Francisca Velasquez DATE: July 08, 2018 TIME: 10:50 AM PAGER/CONTACT #: [phone] Mary Grace Gr RN, RN 07/08/2018 10:56 AM Signed Nursing Progress Note Patient Name: Francisca Velasquez Patient Location: [place] [address]/[facility]* Daily Note:bedside colonostopy completed. See vitals from 1000 to current. Pt tolerated well. See attached sedation form. Pt now awake and answering questions but drowsy. Vitals stable. Will monitor This note was completed by: JUVE Tobar MD, MD 07/08/2018 1:30 PM Attested Attestation signed by Abdulaziz Cintron at 07/08/2018 1:[address] [facility] STAFF PHYSICIAN NOTE OF PERSONAL INVOLVEMENT IN CARE I have reviewed the progress note obtained and documented by the resident and I personally participated in the monson components. I have discussed the case and management of the patient's care. The following comments revise or confirm relevant monson components of the note. IMPRESSION: Acute blood loss anemia( required 2 U of Blood transfusion overnight) Acute GI bleed likely lower s/p colonoscopy today with old blood in the colon possible diverticular but also should r/o small bowel bleed H/o UC Lactic acidosis impoved Abnormal UA but negative culture H/o ischemic TIA, ASA and Plavix on hold because of GI bleed MMP PLAN: Plan to arrange for capsule endoscopy camera Continue to trend H/h and transfuse for if Hb<7 protonix po daily Keep holding ASA and Plavix NPO D/c cirpro and watch off ABx Continue to monitor in the icu This patient has a high probability of sudden, clinically significant deterioration, which requires the highest level of physician preparedness to intervene urgently. I managed/supervised life or organ supporting interventions that required frequent physician assessment. I devoted my full attention to the direct care of this patient for the amount of time indicated below. Time I spent with family or surrogate(s) is included only if the patient was incapable of providing the necessary information or participating in medical decision making. Time devoted to teaching and to any procedures I billed separately is not included. Critical Care Documentation: The patient has the following organ/system impairment(s): Acute blood loss Time spent providing critical care services: 35 minutes. SIGNATURE: Abdulaziz Cintron MD [facility] DATE of SERVICE: 07/08/2018 TIME of SERVICE: 800AM Medical Intensive Care Progress Note July 08, 2018 Patient Name: Francisca Velasquez Patient Location: [id number]/[place] [address]* Admission Date: 07/05/2018 Length of Stay: 3 Primary Service: Medical Intensive Care Interval History for 07/08/18: Patient seen and examined in the AM. Patient's Hb did drop to 6.9 overnight and he was given additional 2 U of packed RBCs. His colonoscopy was done, which revealed moderate diverticulosis, old clots throughout colon but no active bleeding. Capsule endoscopy to be done today Review of Systems All other systems reviewed and are negative. Objective Present Condition: 07/08/18 1050 07/08/18 1136 07/08/18 1207 07/08/18 1230 BP: 104/64 106/63 120/72 108/68 Pulse: 96 89 96 91 Resp: 18 16 20 20 Temp: 37.1 ?C (98.8 ?F) 37 ?C (98.6 ?F) 37 ?C (98.6 ?F) 37 ?C (98.6 ?F) TempSrc: SpO2: 97% 100% 98% 98% Weight: Height: Physical Exam Constitutional: He is oriented to person, place, and time. Cardiovascular: Normal rate. Pulmonary/Chest: Breath sounds normal. Abdominal: He exhibits no distension. There is no tenderness. Musculoskeletal: He exhibits no edema. Neurological: He is alert and oriented to person, place, and time. Current Facility-Administered Medications: atorvastatin 40 mg tab(s) (LIPITOR) 40 mg ORAL DAILY Edwar Dempsey (Res) Sukumari [START ON 07/09/2018] pantoprazole DR 40 mg tab(s) (PROTONIX) 40 mg ORAL DAILY (6 AM) Ke (Res) Atassi ondansetron (PF) 4 mg injection (ZOFRAN) 4 mg INTRAVENOUS q 6 H PRN Babar Yoon (Res) MD Latonya tamsulosin ER 0.4 mg cap(s) (FLOMAX) 0.4 mg ORAL DAILY Julian (Res) Parveen 0.4 mg at 07/08/18 0929 potassium chloride 80-120 mEq oral liquid 80-120 mEq ORAL/FEEDING TUBE PRN Jaz Linares (Res) Vipin potassium chloride iv piggyback 20 mEq/100 mL 20 mEq INTRAVENOUS PRN Jaz Linares (Res) Vipin magnesium sulfate in water 2 g in sterile water 50 ml 2 g INTRAVENOUS PRN Jaz Erindaleesa (Res) Vipin sodium glycerophosphate 45 mmol in NaCl 0.9% 250 mL (GLYCOPHOS) 45 mmol INTRAVENOUS PRN Jaz Khandayamilethni (Res) Vipin Last Rate: 31.25 mL/hr at 07/05/18 0606 45 mmol at 07/05/18 0606 calcium gluconate 4 g in NaCl 0.9% 250 mL 4 g INTRAVENOUS PRN Jaz Khandaleesa (Res) Vipin lactated ringers infusion 100 mL/hr INTRAVENOUS CONTINUOUS Jaz Erindaleesa (Res) Vipin Last Rate: 100 mL/hr at 07/08/18 1208 100 mL/hr at 07/08/18 1208 perflutren lipid microspheres 1.1 mg/mL 1.3 mL injection (DEFINITY) 1.3 mL INTRAVENOUS DIRECTED PRN Ke (Res) Kamranssi Labs: CBC: Recent Labs 07/08/18 0930 07/08/18 0420 07/08/18 0015 07/07/18 2130 07/07/18 1830 07/07/18 1557 07/07/18 1050 07/07/18 0300 07/06/18 1500 07/06/18 0325 07/05/18 0330 WBC -- -- -- -- -- -- -- -- -- 12.12* -- -- -- 17.10* HB 7.6* 6.9* 7.2* 6.5* 7.2* 6.0* 5.9* 7.1* < > 7.9* < > 8.9* < > 10.6* HCT -- -- -- 18.8* -- -- -- -- -- 23.7* -- 26.4* -- 33.0* PLT -- -- -- -- -- -- -- -- -- 143 -- -- -- 246 MCV -- -- -- -- -- -- -- -- -- 89.4 -- -- -- 90.2 < > = values in this interval not displayed. COAG: Recent Labs 07/05/18 0420 INR 1.01 BMP: Recent Labs 07/07/18 1550 07/06/18 0325 07/05/18 0330 GLUC 122* 96 115* NA 141 143 144 K 3.5 3.7 4.0 CHLOR 113* 114* 117* CO2 23 21 19* ANION 9 12 12 BUN 19* 24* 34* CREAT 1.01 1.06 1.08 CHEM: Recent Labs 07/07/18 1550 07/06/18 0325 07/05/18 1600 07/05/18 0330 ALB -- -- 2.1* -- TPROT -- -- 4.4* -- CA 6.7* 6.8* -- 7.3* MG -- -- -- 2.0 HEPATIC: Recent Labs 07/05/18 1600 ALKPHOS 42* ALT 23 AST 36 TBILI 0.7 URINALYSIS: Recent Labs 07/05/18 0940 SPGR 1.026 UGLUC NEGATIVE UBILI NEGATIVE UKET NEGATIVE UPROT NEGATIVE UROBIL 0.2 UWBC 13.7* CARDIAC: No results for input(s): CKTEST, CKMB, CKMBP in the last 168 hours.TROPONIN@:8,No results found for: BNP:8)@ Intake/Output Summary (Last 24 hours) at 07/08/18 1324 Last data filed at 07/08/18 1207 Gross per 24 hour Intake 5855 ml Output 1800 ml Net 4055 ml Serum creatinine: 1.01 mg/dL 07/07/18 1550 Estimated creatinine clearance: 81.8 mL/min Subjective No past medical history on file. No current facility-administered medications on file prior to encounter. No current outpatient prescriptions on file prior to encounter. Assessment/Plan Reviewed in its entirety and amended as appropriate on 07/08/18 Gastrointestinal - Acute blood loss anemia - 2/2 to GI bleed, GI consulted - Hx of UC - HGB dropped to 6.9 this AM. Given 2 unit of RBC - Hb q6, transfuse <7 - Hold plavix and ASA - INR wnl - EGD and colonoscopy do not show active bleeding, capsule endoscopy to follow ? Hematologic - Acute blood loss anemia - Multiple transfusions - Hemoglobin q 6 hours ? Neuro - Syncope most likely 2/2 to being hypotensive - CT head negative, cervical spine negative - TIA last month, on Plavix and ASA, now held - Trauma consulted, for unwitnessed fall, cleared off ? ? Infectious - UTI - Ciprofloxacin dc'd - Urine cx shows no growth - MRSA culture negative - Right ureteral stone in abdominal CT - Urology recommends outpatient management Signed: Caio Meza MD, PGY-1 Pager: [phone] Date: July 08, 2018 Time: 1:24 PM Recommendations are not finalized until co-signed by Staff physician. Previous Version Yuliet Rubio RN, RN 07/08/2018 6:52 PM Signed CAPSULE ENDOSCOPY ADMINISTRATION SERVICE DATE: 07/08/2018 SERVICE TIME: 1700 ORDERING PHYSICIAN: Dr. Magallanes PRE-PROCEDURE REVIEW Patient identified by name: Yes Order confirmed: Yes Consent confirmed: Yes Reviewed Capsule Endoscopy Nursing Triage/Teaching Note: Yes Confirmed NPO status: Yes Confirmed oral Iron was held for 5 days: Yes SB CAPSULE ADMINISTRATION Patient ingested SB Capsule Endoscope (Olympus/Given) without difficulty. Lot#: [id number] Date of expiration: 09-26-2019 POST-PROCEDURE Post-capsule instructions reviewed and written information was provided to patient. Staff will warp picker tomorrow SIGNATURE: Yuliet Rubio RN PATIENT NAME: Francisca Velasquez DATE: July 08, 2018 TIME: 6:50 PM CONTACT #: [phone] Yuliet Rubio, RN, RN 07/08/2018 6:57 PM Signed CAPSULE ENDOSCOPY POST INGESTION PATIENT INFORMATION You may have clear liquids at 2100 You may take medicine at 2100 You may have regular diet at 2300 DIET: Do not eat or drink for two (2) hours after you have swallowed the capsule endoscope. Two (2) hours after you have swallowed the capsule endoscope you may drink clear liquids like coffee and tea (without cream), cola drinks, apple juice, broth, and eat Jell-O or popsicles. Please do not consume anything red in color. You may also return to taking your routine medications. Four (4) hours after you have swallowed the capsule endoscope, you may return to your usual diet. ACTIVITY: You may return to your normal activities after ingesting the capsule. Please avoid vigorous exercise or any activity that would loosen the adhesive connections on your abdomen. It is okay to operate electrical equipment while undergoing your capsule endoscopy. It is not likely that any household or office equipment will interfere with this examination. You may use cell phones, computers, remote TV appliances, microwaves, Chartbeat players and digital cameras. Because the equipment shape, size, and location may cause concerns from security in certain locations ([place], airports, and government buildings), we recommend you avoid them until testing is complete. Museums may have similar technology for security. It is best to avoid these environments. EQUIPMENT: If one of the sensors becomes dislodged from your abdomen, simply place the adhesive side back on your abdomen in any position. Do not become concerned. The remaining sensors will transmit the pictures even with several sensors detached. RESTRICTIONS: Avoid other patients also undergoing capsule endoscopy. Although the transmission distance is limited, it is possible that your capsule images could be altered. You may not have an MRI (a test similar to an x-ray that uses magnets in the imaging process) while the capsule endoscope remains in your body. Do not schedule a capsule endoscope and an MRI for the same day. Should you require an MRI in the future and you have not seen the capsule evacuated in your stool, discuss this with your physician. An x-ray of your abdomen can show if the capsule has been evacuated. CAPSULE INFORMATION: The capsule endoscope will pass naturally in your stool. It is not necessary to retrieve or return the capsule. The images are stored in the equipment you have worn on your belt. You may flush the used capsule down the bathroom toilet for disposal. In some instances, patients have passed the capsule endoscope during stooling while the capsule is still actively blinking. Do not be alarmed if this happens to you. You may dispose of the capsule in the same manner. IRON: If you stopped taking your oral Iron for this examination, you may resume taking it after testing is completed or as directed by your physician. CONCERNS: Seek medical assistance if you develop extreme abdominal pain, bloating, fever, nausea and vomiting. These may be signs of obstruction and require medical intervention. Yuliet Rubio RN, RN 07/08/2018 7:04 PM Signed Post Capsule Endoscopy Patient Instructions - Capsule Placement: ? Capsule was ingested without difficuly at 7:00pm - Suggested Post Capsule Plan: ? NPO after procedure ? No po meds for 2 hours post ingestion. May return to po meds at 9:00pm ? No MRI until capsule has been excreted from body. SIGNATURE: Yuliet Rubio RN PATIENT NAME: Francisca Velasquez DATE: July 08, 2018 TIME: 7:03 PM PAGER/CONTACT #: Yuliet Rubio RN, RN 07/08/2018 7:11 PM Signed Mylicon 1.8ml given prior to ingestion of pill cam. #[id number]..[id number]. Expiration 09-26-2019 Caio Meza MD, MD 07/09/2018 11:41 AM Attested Attestation signed by Abdulaziz Cintron at 07/09/2018 4:[address] [facility] STAFF PHYSICIAN NOTE OF PERSONAL INVOLVEMENT IN CARE I have reviewed the progress note obtained and documented by the resident and I personally participated in the monson components. I have discussed the case and management of the patient's care. The following comments revise or confirm relevant monson components of the note. IMPRESSION: Acute blood loss anemia( no Blood transfusion overnight) Acute GI bleed likely lower s/p colonoscopy today with old blood in the colon possible diverticular but also should r/o small bowel bleed H/o UC Lactic acidosis impoved Abnormal UA but negative culture H/o ischemic TIA, ASA and Plavix on hold because of GI bleed MMP PLAN: Capsule endoscopy waiting for the results Advance diet as tolerated D/c IVF Discussed with the patient the risk and benefit of Antiplatlets therapy, will hold fr now till we get an idea about the etiology of bleeding, we will also consult neurology for further fpc antiplatlets therapy for the future Watch off ABx Ok to transfer to the floor Patient/Family Updated: Patient, Francisca Velasquez, updated regarding the goals of care, medical plan for the day, income tax consultant recommendations, medical disposition and current medical condition/prognosis as and if clinically indicated. All questions and concerns were answered and addressed at this juncture. They were notified on July 09, 2018 at 1000. The duration of the conversation was 10 minutes. SIGNATURE: Abdulaziz Cintron MD [facility] DATE of SERVICE: 07/09/2018 TIME of SERVICE: 10am Medical Intensive Care Progress Note July 09, 2018 Patient Name: Francisca Velasquez Patient Location: [place] [address] [address]* Admission Date: 07/05/2018 Length of Stay: 4 Primary Service: Medical Intensive Care Interval History for 07/09/18: Patient seen and examined in the AM. Patient's capsule endoscopy was done yesterday, results awaited. Patient's Hb stayed stable. olegario transfer to floor. Consulted Neurology for restarting his DAPT after stroke last month and GI bleed. Review of Systems All other systems reviewed and are negative. Objective Present Condition: 07/09/18 0731 07/09/18 0832 07/09/18 0943 07/09/18 1031 BP: 109/68 129/72 132/63 141/54 Pulse: 88 94 104 93 Resp: Temp: (!) 35.7 ?C (96.3 ?F) (!) 35.9 ?C (96.6 ?F) 36.5 ?C (97.7 ?F) 36.5 ?C (97.7 ?F) TempSrc: SpO2: 99% 97% 99% 95% Weight: 90.3 kg (199 lb 1.2 oz) Height: 180.3 cm (5' 10.98) Physical Exam Constitutional: He is oriented to person, place, and time. Cardiovascular: Normal rate. Pulmonary/Chest: Breath sounds normal. Abdominal: Bowel sounds are normal. He exhibits no distension. There is no tenderness. Musculoskeletal: He exhibits no edema. Neurological: He is alert and oriented to person, place, and time. Current Facility-Administered Medications: atorvastatin 40 mg tab(s) (LIPITOR) 40 mg ORAL DAILY wDINNER Ke (Res) Atassi 40 mg at 07/08/[address] 40 mg tab(s) (PROTONIX) 40 mg ORAL DAILY (6 AM) Ke (Res) Atassi 40 mg at 07/09/18 0534 ondansetron (PF) 4 mg injection (ZOFRAN) 4 mg INTRAVENOUS q 6 H PRN Babar Yoon (Res) MD Latonya tamsulosin ER 0.4 mg cap(s) (FLOMAX) 0.4 mg ORAL DAILY Julian (Res) Parveen 0.4 mg at 07/09/18 0943 potassium chloride 80-120 mEq oral liquid 80-120 mEq ORAL/FEEDING TUBE PRN Jaz Katelynnyadarshini (Res) Vipin potassium chloride iv piggyback 20 mEq/100 mL 20 mEq INTRAVENOUS PRN Jaz Priyadarshini (Res) Vipin magnesium sulfate in water 2 g in sterile water 50 ml 2 g INTRAVENOUS PRN Jaz Priyadarshini (Res) Vipin sodium glycerophosphate 45 mmol in NaCl 0.9% 250 mL (GLYCOPHOS) 45 mmol INTRAVENOUS PRN Jaz Priyadarshini (Res) Vipin Last Rate: 31.25 mL/hr at 07/05/18 0606 45 mmol at 07/05/18 0606 calcium gluconate 4 g in NaCl 0.9% 250 mL 4 g INTRAVENOUS PRN Jaz Priyadarshini (Res) Vipin perflutren lipid microspheres 1.1 mg/mL 1.3 mL injection (DEFINITY) 1.3 mL INTRAVENOUS DIRECTED PRN Ke (Res) Danay Labs: CBC: Recent Labs 07/09/18 0945 07/09/18 0250 07/08/18 2100 07/08/18 1540 07/08/18 0930 07/08/18 0420 07/08/18 0015 07/07/18 2130 07/06/18 1500 07/06/18 0325 07/05/18 0330 WBC -- -- -- -- -- -- -- -- -- 12.12* -- -- -- 17.10* HB 7.9* 8.0* 7.2* 6.9* 7.6* 6.9* 7.2* 6.5* < > 7.9* < > 8.9* < > 10.6* HCT -- -- -- -- -- -- -- 18.8* -- 23.7* -- 26.4* -- 33.0* PLT -- -- -- -- -- -- -- -- -- 143 -- -- -- 246 MCV -- -- -- -- -- -- -- -- -- 89.4 -- -- -- 90.2 < > = values in this interval not displayed. COAG: Recent Labs 07/05/18 0420 INR 1.01 BMP: Recent Labs 07/07/18 1550 07/06/185 07/05/18 0330 GLUC 122* 96 115* NA 141 143 144 K 3.5 3.7 4.0 CHLOR 113* 114* 117* CO2 23 21 19* ANION 9 12 12 BUN 19* 24* 34* CREAT 1.01 1.06 1.08 CHEM: Recent Labs 07/07/18 1550 07/06/18 0325 07/05/18 1600 07/05/18 0330 ALB -- -- 2.1* -- TPROT -- -- 4.4* -- CA 6.7* 6.8* -- 7.3* MG -- -- -- 2.0 HEPATIC: Recent Labs 07/05/18 1600 ALKPHOS 42* ALT 23 AST 36 TBILI 0.7 URINALYSIS: Recent Labs 07/05/18 0940 SPGR 1.026 UGLUC NEGATIVE UBILI NEGATIVE UKET NEGATIVE UPROT NEGATIVE UROBIL 0.2 UWBC 13.7* CARDIAC: No results for input(s): CKTEST, CKMB, CKMBP in the last 168 hours.TROPONIN@:8,No results found for: BNP:8)@ Intake/Output Summary (Last 24 hours) at 07/09/18 1135 Last data filed at 07/09/18 0943 Gross per 24 hour Intake 3227 ml Output 4550 ml Net -1323 ml Serum creatinine: 1.01 mg/dL 07/07/18 1550 Estimated creatinine clearance: 81.8 mL/min Subjective No past medical history on file. No current facility-administered medications on file prior to encounter. No current outpatient prescriptions on file prior to encounter. Assessment/Plan Reviewed in its entirety and amended as appropriate on 07/09/18 Gastrointestinal - Acute blood loss anemia - 2/2 to GI bleed, GI consulted - Hx of UC - Hbg stable since the last 24 hrs - Hold plavix and ASA, consulted neurology for DAPT restart - INR wnl - EGD and colonoscopy do not show active bleeding, capsule endoscopy results awaited ? Hematologic - Acute blood loss anemia - Multiple transfusions - Hemoglobin q 6 hours ? ? Neuro - Syncope most likely 2/2 to being hypotensive - CT head negative, cervical spine negative - TIA last month, on Plavix and ASA, now held, neuro consulted - Trauma consulted, for unwitnessed fall, cleared off ? ? Infectious - UTI - Ciprofloxacin dc'd - Urine cx shows no growth - MRSA culture negative - Right ureteral stone in abdominal CT - Urology recommends outpatient management Signed: Caio Meza MD, PGY-1 Pager: [phone] Date: July 09, 2018 Time: 11:35 AM Recommendations are not finalized until co-signed by Staff physician. Daniel Greenwood APRN.[employer] F[employer]ICATOR ASSEMBLER 07/09/2018 3:15 PM Signed CONSULT PROGRESS NOTE SERVICE DATE: 07/09/2018 SERVICE TIME: 1:43 PM CONSULTING SERVICE: GASTROENTEROLOGY Subjective INTERVAL HPI: S/p colonoscopy moderate sigmoid diverticulosis, old blood and few clots throughout colon and TI but no actively bleeding lesion seen or stigmata of recent bleeding. Hgb 7.9, patient denied rectal bleeding. Current hospital medications: atorvastatin 40 mg tab(s) (LIPITOR) 40 mg ORAL DAILY wDINNER pantoprazole DR 40 mg tab(s) (PROTONIX) 40 mg ORAL DAILY (6 AM) ondansetron (PF) 4 mg injection (ZOFRAN) 4 mg INTRAVENOUS q 6 H PRN tamsulosin ER 0.4 mg cap(s) (FLOMAX) 0.4 mg ORAL DAILY potassium chloride 80-120 mEq oral liquid 80-120 mEq ORAL/FEEDING TUBE PRN potassium chloride iv piggyback 20 mEq/100 mL 20 mEq INTRAVENOUS PRN magnesium sulfate in water 2 g in sterile water 50 ml 2 g INTRAVENOUS PRN sodium glycerophosphate 45 mmol in NaCl 0.9% 250 mL (GLYCOPHOS) 45 mmol INTRAVENOUS PRN calcium gluconate 4 g in NaCl 0.9% 250 mL 4 g INTRAVENOUS PRN perflutren lipid microspheres 1.1 mg/mL 1.3 mL injection (DEFINITY) 1.3 mL INTRAVENOUS DIRECTED PRN Objective PHYSICAL EXAM: Physical Exam Performed: GENERAL: Alert and oriented X 3 in no distress, cooperative and following commands SKIN: Skin warm and dry LUNGS: Lungs clear to auscultation, on RA CARDIAC: Normal S1 and S2 ABDOMEN: Abdomen soft and non-tender with + BS X 4 without guarding, rebound, or distention PULSES: 2+ radial BP 124/54 Pulse 108 Temp (Src) 98.1 (Axillary) Resp 14 Ht 5' 10.984 (1.80m) Wt 199 lb 1.2 oz (90.3kg) SpO2 97% BMI 27.78 kg/(m2). DATA: Diagnostic tests reviewed for today's visit: Ref. Range 07/09/2018 09:45 HGB Latest Ref Range: 13.7 - 17.5 g/dL 7.9 (L) Impression/Recommendations 1). GIB-s/p EGD on 07/05/18 (normal except 2-3cm sliding hiatus hernia), colonoscopy on 07/08 (moderate sigmoid diverticulosis, old blood and few clots throughout colon and TI but no actively bleeding lesion seen or stigmata of recent bleeding), hgb stable no more bleeding Assessment AND Plan: Continue to monitor h/h, transfuse <7, continue PPI, and await capsule endoscopy results SIGNATURE: Daniel Greenwood APRN.[employer] F[employer]RICATOR ASSEMBLER PATIENT NAME: Francisca Velasquez DATE: July 09, 2018 TIME: 3:07 PM PAGER: Willard Torre MD 07/09/2018 5:21 PM Addendum INITIAL CONSULT - GENERAL NEUROLOGY SERVICE DATE: 07/09/2018 SERVICE TIME: 2:53 PM Team Requesting Consult: Ric Melgar Current Attending Provider: Ric Melgar Neurology was asked to evaluate Francisca Velasquez, a 62 year old male. Our recommendations of care will be communicated by shared medical record. Subjective HPI: Francisca Velasquez is a 62 year old male with a PMH of UC, TIA, HLD, former smoker who was admitted to [facility] as a level III trauma after falling on 07/04. Patient was found to have GI bleed with hx of melena Hgb of 9.3. CT head normal. Neurology was consulted with the concern of patient being on both ASA and Plavix s/p TIA in May. He was experiencing numbness to his right mouth, arm and leg. Patient denies any stroke/TIA symptoms since hospitalization or now. Current hospital medications: atorvastatin 40 mg tab(s) (LIPITOR) 40 mg ORAL DAILY wDINNER pantoprazole DR 40 mg tab(s) (PROTONIX) 40 mg ORAL DAILY (6 AM) ondansetron (PF) 4 mg injection (ZOFRAN) 4 mg INTRAVENOUS q 6 H PRN tamsulosin ER 0.4 mg cap(s) (FLOMAX) 0.4 mg ORAL DAILY potassium chloride 80-120 mEq oral liquid 80-120 mEq ORAL/FEEDING TUBE PRN potassium chloride iv piggyback 20 mEq/100 mL 20 mEq INTRAVENOUS PRN magnesium sulfate in water 2 g in sterile water 50 ml 2 g INTRAVENOUS PRN sodium glycerophosphate 45 mmol in NaCl 0.9% 250 mL (GLYCOPHOS) 45 mmol INTRAVENOUS PRN calcium gluconate 4 g in NaCl 0.9% 250 mL 4 g INTRAVENOUS PRN perflutren lipid microspheres 1.1 mg/mL 1.3 mL injection (DEFINITY) 1.3 mL INTRAVENOUS DIRECTED PRN No past medical history on file. No past surgical history on file. Social History Marital status: Unknown Spouse name: Years of education: Number of children: Social History Main Topics Drug use: Unknown No family history on file. ALLERGIES Allergen Reactions - Penicillin Anaphylaxis Objective REVIEW OF SYSTEMS: GENERAL: Normal sleep, appetite and activity. No fevers or irritability. HEENT: Negative for headaches, No problems with hearing or vision, no nose bleeds or other nasal problems NECK: Negative for stiffness, lumps or significant neck swelling RESPIRATORY: Negative for cough, wheezing or respiratory distress CARDIOVASCULAR: Negative for chest pain, syncope, lightheadness or heart racing GI: No nausea, vomiting, or diarrhea : No history of dysuria, frequency or incontinence MUSCULOSKELETAL: Negative for joint pain or swelling, back pain or muscle pain SKIN: Negative for lesions, rash, and itching NEURO: See HPI PHYSICAL EXAM: General Appearance: Well appearing, alert, in no acute distress, well-hydrated, well nourished. Skin: Skin color, texture, turgor normal, no suspicious rashes or lesions Head: + excoriation across left forehead. Normocephalic, no masses, , tenderness or abnormalities Ears: Negative Nose/Sinuses: Nares normal, septum midline, mucosa normal, no drainage or sinus tenderness Oropharynx: Lips, mucosa, and tongue normal, teeth and gums normal, oropharynx normal Neck: Supple, no adenopathy; thyroid symmetric, normal size, no bruits Lungs: not examined Heart: Not examined Carotid Auscultation: not examined Abdomen: Normal abdominal exam Extremities: No deformities, edema, skin discoloration, clubbing or cyanosis. Good capillary refill. Musculoskeletal: Spine range of motion normal. Muscular strength intact Peripheral Pulses: Normal Neurological: ? Mental Status: Alert, oriented to person, place and time and Follows commands. Cranial Nerves: CNII: Visual acuity normal, Visual [place] full to confrontation CNIII, IV, : Pupils equal, round and reactive to light, full extraoccular movements, without nystagmus CN V: Facial sensation intact bilaterally to fine touch CN VII: Facial muscles symmetric and strong, No noted facial droop CN VIII: Hears finger rub well bilaterally CN IX: Gag Reflex Not examined CN X: Palate elevates symmetrically CN XI: Full strength shoulder shrug bilaterally CN XII: Tongue protrusion full and midline ? Non-Dilated Fundiscopic Examination: Deferred Examination ? Motor Exam: Tone - Normal Bulk - no muscle atrophy Delt Biceps Triceps Wrist Ext Wrist Flex Finger Flex Finger Ext Finger Abd Finger Add Right 5/5 5/5 5/5 5/5 5/5 5/5 5/5 5/5 5/5 Left 12/15 12/15 12/15 12/15 12/15 12/15 12/15 12/15 12/15 Hip Flex Hip Ext BiFem (knee flex) Quads (knee ext) Gastroc (plantflx) TibAnt (Dorsiflx) TibPost (ank add) Ankle Eversion Ankle Inversion FlxHLong (ToeFlex) ExtHLong (ToeExt) Right 12/15 12/15 12/15 12/15 12/15 12/15 12/15 12/15 12/15 12/15 12/15 Left 12/15 12/15 12/15 12/15 12/15 12/15 12/15 12/15 12/15 12/15 12/15 Neck Flexors 12/15 Neck Extensors 12/15 REFLEXES Right Left Bicep 2/4 2/4 Tricep 2/4 2/4 BrRad 2/4 2/4 Knee 2/ 2/ Ankle 2/ 2/4 Pathological Reflexes: Babinski: Bilateral Downward response Littlejohn: Bilateral Negative ? Sensation: Intact to light touch. ? Coordination: Finger-to- nose-finger intact bilaterally. ? Gait: not tested ? Romberg: not tested ? Rapid Alternating Movements: Normal bilaterally LABS/DATA: WBC (thou/cmm) Date Value 07/06/2018 12.12 07/05/2018 17.10 RBC (mil/cmm) Date Value 07/06/2018 2.65 07/05/2018 3.66 Platelet Count (thou/cmm) Date Value 07/06/2018 143 07/05/2018 246 BUN (mg/dL) Date Value 07/07/2018 19 07/06/2018 24 07/05/2018 34 Creatinine (mg/dL) Date Value 07/07/2018 1.01 07/06/2018 1.06 07/05/2018 1.08 No results found for: NEUTP, ABSNEUT, LYMPHP, ABSLYMPH, ABSMONO, EODINP, ABSEOSIN, BASOP, ABSBASO Lab Results Component Value Date PLT 143 07/06/2018 HB 7.9 07/09/2018 HCT 18.8 07/07/2018 ALB 2.1 07/05/2018 CA 6.7 07/07/2018 TBILI 0.7 07/05/2018 ALKPHOS 42 07/05/2018 AST 36 07/05/2018 GLUC 122 07/07/2018 BUN 19 07/07/2018 NA 141 07/07/2018 K 3.5 07/07/2018 CHLOR 113 07/07/2018 CO2 23 07/07/2018 ANION 9 07/07/2018 ALT 23 07/05/2018 CRP (mg/dL) Date Value 07/05/2018 0.83 No results found for: USCRP No results found for: CHOL No results found for: LDL No results found for: HDL No results found for: TG Hemoglobin A1C (%) Date Value 07/05/2018 4.6 DATA: Diagnostic tests reviewed for today's visit: Most recent labs and imaging results. Impression/Recommendations This is Francisca Velasquez, a 62 year old male with a history of UC and TIA here with fall and GI bleed. 1)TIA - NO symptomnsology at this time. -Was on DAPT -Case discussed with Dr. Torre-- patient okay to start plavix alone when cleared by GI. -Discussed in length with patient and about risk factors and benefit with UC and TIA hx. -Patient has been on DAPT x 4 weeks s/p TIA in May. -Patient scheduled for follow up with Dr. Choi in August -stroke risk factors discussed with patient: HTN, HLD, former smoker. 2) GI bleed -GI following -Colonoscopy= sigmoid diverticulosis, clots (old and new ) in colon and TI To be staffed by Dr. Torre, neuro attending. SIGNATURE: LINO SERRANO PA-C PATIENT NAME: Francisca Velasquez DATE: July 09, 2018 TIME: 2:53 PM PAGER/CONTACT #: [phone] [facility] STAFF ADDENDUM Willard Torre MD Agree with above, reflecting my direct input. There is no clear role for DAPT in this setting, but as the pt had an apparent TIA despite ASA, he should be on clopidogrel 75 mg daily for secondary prevention. Optimally would start Plavix ARTUHR but in the setting of UC with GIB would wait until stable from GI standpoint. Consider starting Plavix 7 days from now if ok with GI. Please call with questions. PERSONAL INVOLVEMENT IN CARE: ? ?Patient/Family Updated: Patient and/or family were updated regarding the goals of care,?medical plan for the day, income tax consultant recommendations, medical disposition and current medical condition/prognosis as and if clinically indicated. All questions and concerns were answered and addressed at this juncture. I agree with the resident MD note as above, except as otherwise indicated; my additional comments, if necessary, are in bold. ? This patient has a high probability of sudden, clinically significant deterioration, which requires the highest level of physician preparedness to intervene urgently. I managed/supervised life or organ supporting interventions that required frequent physician assessment. I devoted my full attention to the direct care of this patient for the amount of time indicated below. Time I spent with family or surrogate(s) is included only if the patient was incapable of providing the necessary information or participating in medical decision making. Time devoted to teaching and to any procedures I billed separately is not included. ? Critical Care Documentation: The patient has the following organ/system impairment(s): As above Time spent providing critical care services: 30 minutes. ? SIGNATURE: Willard Torre MD PATIENT NAME: Francisca Velasquez DATE: 07/09/18 TIME: 5:18 PM PAGER/CONTACT #: [phone] Previous Version Caio Meza MD, MD 07/09/2018 4:31 PM Cosign Needed TRANSFER NOTE This is a 62 year old male with the PMH of ulcerative colitis, TIA, HLD, HTN , nephrolithiasis whop presented with blood bowel movements. He felt dizzy and passed out when he was brought in to the hospital by the . Over the course of his stay, his Heamoglobin dropped and he was given multiple blood transfusions. He was seen by GI who did EGD and colonoscopy, but found no active bleeding. Capsule endoscopy has been done, the results of which her awaited. Trauma was consulted that cleared him off for collar. Urology was consulted for renal stone, and recommend outpatient follow up. Neurology is consulted for restarting DAPT and their recommendations would be appreciated. Please follow up on his hemoglobin. He has been stable for more than 24 hours and so is being transferred. Caio Meza PGY-1 Tom Magallanes MD MPH [facility] 2018 8:18 AM Addendum PillCam (capsule endoscopy) performed evening of July 08 after his colonoscopy. Please see full report for details. Brief summary below. Gastric passage time: 39 minutes Small bowel passage time: 4 hours 48 minutes There was slight holdup of the PillCam for about 1 hour 15 minutes somewhere in the mid jejunum. There were 2 areas of bright white nodules which may represent lipomas, in the proximal ileum. The rest of the small bowel study was normal. Recommendations: No cause for obscure overt GI bleed found. May consider CT enterography if bleeding persists, especially in light of abnormal holdup of the PillCam as noted above. Tom Magallanes MD MPH [facility] Previous Version COMPREHENSIVE METABOLIC Collected: 06/05/2018 Status: F Source: [facility]EN[facility] 3:31 PM [facility] REPOSITORY TYPE CODE TESTS RESULT OUT OF RANGE REFERENCE UNITS LAB L501.0100 74-106 mg/dL Normal GLU 79 Result Comment: Please note revised GLUCOSE reference range effective 2017. LAB L501.1000 7-18 mg/dL Normal BUN 16 LAB L501.1100 0.70-1.30 mg/dL Normal CREAT,SERUM 1.21 Result Comment: The validity of the calculated GFR AND GFRAA in patients over 70 years has not been determined. Clinical correlation is essential. LAB L501.1110 >60 mL/min Normal EST GFR 65 Result Comment: Non- GFR Calc LAB L501.1115 >60 mL/min Normal EST GFR - AA 78 Result Comment: GFR Calc LAB L501.1300 10-20 RATIO Normal BUN/CRE 13.2 LAB L501.1500 6.4-8.2 g/dL T Normal PROT 7.6 LAB L501.1800 3.2-5.0 g/dL Normal ALB 3.7 LAB L501.1950 2.2-4.2 g/dL Normal GLOB 3.9 LAB L501.2000 0.9-2.4 RATIO Normal A/G 0.9 LAB L501.2200 8.5-10.1 mg/dL CA Normal 9.0 LAB L501.4100 15-37 U/L Normal AST 19 LAB L501.4305 45-117 U/L Normal ALK P 82 LAB L501.4405 16-61 U/L Normal ALT 36 LAB L501.4600 0.20-1.00 mg/dL T Normal BILI 0.80 LAB L501.5300 136-145 mmol/L NA Normal 140 LAB L501.5600 3.5-5.1 mmol/L K Normal 3.7 LAB L501.5900 98-107 mmol/L CL Normal 106 LAB L501.6100 21.0-32.0 mmol/L Normal CO2 25.0 LAB L501.6200 5-15 Normal GAP 9 Performed By: #### L500.4050, L501.9520 #### [facility] [address] [place], [place], [address] THYROID STIM HORMONE Collected: 06/05/2018 Status: F Source: [place] (TSH) 3:31 PM [facility] REPOSITORY TYPE CODE TESTS RESULT OUT OF RANGE REFERENCE UNITS LAB L501.9520 0.358-3.74 uIU/mL Low TSH 0.34 Performed By: #### L500.4050, L501.9520 #### [facility] [address] [place], [place], [address] CBC W/DIFF, AUTOMATED Collected: 06/05/2018 Status: F Source: [place] 3:31 PM [facility] REPOSITORY TYPE CODE TESTS RESULT OUT OF RANGE REFERENCE UNITS LAB L100.1000 4.4-11.0 K/mm3 Normal WBC 7.6 LAB L100.1200 4.6-6.2 M/mm3 Normal RBC 5.13 LAB L100.1300 13.0-16.5 g/dl Normal HGB 14.7 LAB L100.1400 40-54 % Normal HCT 45.8 LAB L100.1500 80-94 fL Normal MCV 89.3 LAB L100.1600 27.0-32.0 pg Normal MCH 28.7 LAB L100.1700 32-36 g/gl Normal MCHC 32.1 LAB L100.1810 11.6-14.6 % Normal RDW CV 14.4 LAB L100.1820 35.1-43.9 fl High RDW SD 46.7 LAB L100.1900 150-450 K/mm3 Normal PLT 254 LAB L100.2000 6.2-12.0 fl Normal MPV 9.5 LAB L100.2100 47-70 % Normal NEUT% 61.8 LAB L100.2200 19-41 % Normal LY% 25.7 LAB L100.2300 0-10 % Normal MONO% 9.8 LAB L100.2400 0-5 % Normal EO% 2.2 LAB L100.2500 0-1 % Normal BASO% 0.4 LAB L100.2550 0.0-0.9 % Normal IM GRAN % 0.100 Result Comment: IG% - Immature Granulocytes (promyelocytes, myelocytes and metamyelocytes) > 1% indicates that a LEFT SHIFT is Present. LAB L100.2620 2.0-7.7 X10 3/uL Normal Absolute Neut 4.7 LAB L100.2720 0.83-4.51 X10 3/ul Normal Absolute Lymph 1.95 Performed By: #### L100.0100, L101.9900 #### [facility] [address] [place], [place], [id number] ERYTHROCYTE SED RATE Collected: 06/05/2018 Status: F Source: [place] 3:31 PM [facility] REPOSITORY TYPE CODE TESTS RESULT OUT OF RANGE REFERENCE UNITS LAB L102.0000 0-20 mm/hr Normal SED RATE 13 Performed By: #### L100.0100, L101.9900 #### [facility] [address] [facility] [id number] RAPID PLASMIN REAGIN Collected: 06/05/2018 Status: F Source: [place] (RPR) 3:31 PM [facility] REPOSITORY TYPE CODE TESTS RESULT OUT OF REFERENCE UNITS RANGE LAB L700.5000 NONREACTIVE NONREACTIVE Normal RPR Performed By: #### L700.5000 #### [facility] [address] [facility] [id number] ANTINUCLEAR ANTIBODIES Collected: 06/05/2018 Status: F Source: [place] DIRECT 3:31 PM [facility] REPOSITORY TYPE CODE TESTS RESULT OUT OF RANGE REFERENCE UNITS LAB L3100.5475 Negative Normal Negative KUNAL-DIRECT Result Comment: Performed at: [address] [place] [id number] Supervisor Tile And Mottle: Malvin Mendoza PhD, Phone: [phone] Performed By: #### L3100.5475 #### [facility] (refer to report for specific site) refer to report for address and phone number PROTEIN ELECTROPH, S Collected: 06/05/2018 Status: F Source: [place] 3:31 PM [facility] REPOSITORY TYPE CODE TESTS RESULT OUT OF RANGE REFERENCE UNITS LAB L3100.3500 6.0-8.5 g/dL Normal PROTEIN,TOTAL 7.2 LAB L3100.3600 2.9-4.4 g/dL Normal ALBUMIN 3.7 LAB L3100.3700 0.0-0.4 g/dL Normal ALPHA-1 GLOBUL 0.2 LAB L3100.3800 0.4-1.0 g/dL Normal ALPHA-2 GLOBUL 0.7 LAB L3100.3900 0.7-1.3 g/dL High BETA GLOBULIN 1.5 LAB L3100.4000 0.4-1.8 g/dL Normal GAMMA GLOBULIN 1.1 LAB L3100.4110 Normal M-SPIKE Result Comment: Not Observed LAB L3100.4200 2.2-3.9 g/dL GLOBULIN, TOTAL Normal 3.5 LAB L3100.4300 0.7-1.7 A/G RATIO Normal 1.1 LAB L3100.4320 . INTERPRETATION Normal Comment Result Comment: Protein electrophoresis scan will follow via computer, mail, or golf club manager delivery. LAB L3100.4340 . Normal NOTE: Comment Result Comment: Serum protein electrophoresis shows an increase in the percentage of the Beta Globulin fraction. Pattern may be attributed to conditions such as iron deficiency anemia, diabetes mellitus or a paraprotein with beta migration. Performed at: - [address] [id number] Supervisor Tile And Mottle: Michael Ibanez MD, Phone: [phone] Performed at: [facility] [address] [id number] Supervisor Tile And Mottle: Malvin Mendoza PhD, Phone: [phone] Performed By: #### L3100.3450, L7000.5800 #### [facility] (refer to report for specific site) refer to report for address and phone number LYME ANTIBODIES,W BLOT Collected: 06/05/2018 Status: F Source: [place] 3:31 PM [facility] REPOSITORY TYPE CODE TESTS RESULT OUT OF RANGE REFERENCE UNITS LAB L7000.5920 . Normal P93 Ab Absent LAB L7000.5940 . Normal P66 Ab Absent LAB L7000.5960 . Normal P58 Ab Absent LAB L7000.5980 . Normal P45 Ab Absent LAB L7000.6000 . High P41 Ab Present LAB L7000.6020 . Normal P39 Ab Absent LAB L7000.6040 . Normal P30 Ab Absent LAB L7000.6060 . Normal P28 Ab Absent LAB L7000.6080 . High P23 Ab Present LAB L7000.6100 . Normal P18 Ab Absent LAB L7000.6200 . Normal LYME IgG Negative INTERP Result Comment: Positive: 5 of the following Borrelia-specific bands: 18,23,28,30,39,41,45,58, 66, and 93. Negative: No bands or banding patterns which do not meet positive criteria. LAB L7000.6320 . Normal P41 Ab Absent LAB L7000.6340 . Normal P39 Ab Absent LAB L7000.6360 . Normal P23 Ab Absent LAB L7000.6400 . Normal LYME IgM Negative INTERP Result Comment: Note: An equivocal or positive EIA result followed by a negative Western Blot result is considered NEGATIVE. An equivocal or positive EIA result followed by a positive Western Blot is considered POSITIVE by the CDC. Positive: 2 of the following bands: 23,39 or 41 Negative: No bands or banding patterns which do not meet positive criteria. Criteria for positivity are those recommended by CDC/ASTPHLD. p23=Osp C, z83=fiiedasoi Note: Sera from individuals with the following may cross react in the Lyme Western Blot assays: other spirochetal diseases (periodontal disease, leptospirosis, relapsing fever, yaws, and pinta); connective autoimmune (Rheumatoid Arthritis and Systemic Lupus Erythematosus and also individuals with Antinuclear Antibody); other infections ([place] Spotted Fever; Kaila-Swanson Virus, and Cytomegalovirus). Performed By: #### L3100.3450, L7000.5800 #### [facility] (refer to report for specific site) refer to report for address and phone number PROTEIN ELECTRO.UR-RANDOM Collected: Status: F Source: [place] 06/05/2018 3:31 PM [facility] REPOSITORY TYPE CODE TESTS RESULT OUT OF RANGE REFERENCE UNITS LAB L3600.4100 Not Estab. mg/dL Normal 11.9 PROTEIN,UR LAB L3600.4200 . % Normal 45.1 ALBUMIN,UR LAB L3600.4300 . % Normal 2.3 PUAEU-4-LMBP ,U LAB L3600.4400 . % Normal 10.7 AGKDT-3-ATEA ,U LAB L3600.4500 . % Normal BETA 23.6 GLOB,U LAB L3600.4600 . % Normal GAMMA 18.2 GLOB,U LAB L3600.4720 Normal M-SPIKE,U Result Comment: NOT OBSERVED LAB L3600.4800 . Normal NOTE Comment Result Comment: Protein electrophoresis scan will follow via computer, mail, or golf club manager delivery. Performed at: [facility] [employer] [employer] [address] [id number] Supervisor Tile And Mottle: Malvin Mendoza PhD, Phone: [phone] Performed By: #### L3600.4000 #### [facility] (refer to report for specific site) refer to report for address and phone number CONSULTATION Observed: 05/31/2018 Status: F Source: [place] 10:56 AM [facility] REPOSITORY [facility] Medical Records Department [address] [place] [address] Consultation 05/29/18 1347 MR#: [id number] Acct: [id number] Name: FRANCISCA VELASQUEZ Rep #: [id number] : 1955 62 From: Jos Wong MD PCP: Erwin Bae MD Status: DIS AUGUSTO Y Location: [place] [address] Reason for Consult Date of Consultation: 05/29/18 History of Present Illness: The patient is a 62 year old M reports initially symptoms briefly on sunday, then again yesterday morning in right foot while walking, lasted for 2hrs, went home and took an asa, went to physicians office, sent to ED, reports still now right hand and foot abnormal sensations as well as right upper lip. describes symptoms as similar to lidocaine. no recent illness, or med changes. takes asa daily at home. 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 per admit h AND p:The patient is a 62 year old M with past medical history as mentioned above presented to the emergency room because of right-sided numbness. His symptoms started 2 days ago with numbness around the right corner his mouth, right hand and right foot that lasted for about 15-30 minutes and resolved spontaneously. On that day, patient did not pay attention to those symptoms. Today, he went to work and he started having exact same symptoms with numbness on the right side of his face on the corner of the mouth as well as right hand and right foot and his symptoms today lasted for about couple of hours and he decided to come to the emergency room. He reported associated ringing in the right ear as well as some discomfort in the back of his neck. He denied blurred vision, slurred speech, focal arm or leg weakness. He denied chest pain or shortness of breath. He denied vertigo or ear symptoms except right ear ringing which resolved. At this time, he mentioned that numbness in the right side is almost gone. In the emergency department, initial blood pressure was slightly elevated and improved. His NIH score was 0. His routine blood work was unremarkable. His EKG revealed normal sinus rhythm without evidence of cardiac arrhythmias or ischemic changes. His troponin was negative. Pro time and INR were normal. CT scan brain showed no acute findings. Patient is being admitted for right side paresthesia probably due to TIA for evaluation. Past Medical History Past Medical History (Chronic Problems): Chronic Problems (Last Updated 05/29/18 @ 13:59 by Jos Wong MD) Benign prostatic hyperplasia (Chronic) Medical History: Medical History (Last Updated 05/29/18 @ 13:59 by Jos Wong MD) Nephrolithiasis N20.0 Ulcerative colitis K51.90 Allergies Penicillins Allergy (Verified 05/28/18 12:19) Anaphylaxis Home Medications: Ambulatory Orders Medication Instructions Recorded Aspirin [Aspirin EC] 81 mg PO DAILY 05/28/18 Caffeine 200 mg PO DAILY 05/28/18 Cranberry Fruit Extract [Cranberry] 250 mg PO DAILY 05/28/18 Surgical History: no surgical history Psychiatric History: No pertinent psych hx Lives: Spouse/ Significant Other Smoking Status: Current every day smoker Tobacco Use: Vapor, - Alcohol: None Drugs: None - *Family History Maternal History Items: Stroke, - - Multiple myeloma. Paternal History Items: Hypertension Review of Systems Constitutional: Denies: Chills, Fever, Weight Change HEENT: Denies: Head Aches, Sinus Congestion, Sinus Drainage Cardiovascular: Denies: Chest Pain, Palpitations Respiratory: Denies: Cough, Shortness of breath at rest, Sputum production Gastrointestinal: Denies: Abdominal Pain, Nausea, Vomiting Genitourinary: Denies: Dysuria Musculoskeletal: Denies: Joint Pain, Joint Tenderness Skin: Denies: Rash, Wounds Neurological: Denies: Numbness, Tingling, Focal weakness Psychiatric: Denies: Anxiety, Depression, Homicidal Ideations, Suicidal Ideations Hematologic/ Lymphatic: Denies: Easy Bruising, Easy Bleeding - Physical Exam General: Alert, Oriented x3, Cooperative HEENT: Atraumatic, PERRLA, EOMI, Normocephalic Musculoskeletal: No Tenderness to Palpation of Joints or Extremities Neurological: Cranial nerves II-XII grossly intact, Deep Tendon Reflexes 2+/4 and Symmetrical, Neuro grossly intact, Motor Exam 5/5 strength throughout, Muscle tone normal, Sensory exam intact to light touch and pain, Coordination normal, Gait narrow based and stable Psych/Mental Status: Normal Affect, Appropriate Vital Signs Temp Pulse Resp BP Pulse Ox 36.4 C L 76 18 149/92 H 97 05/29/18 08:29 05/29/18 11:32 05/29/18 08:29 05/29/18 08:29 05/29/18 08:29 Oxygen Delivery Method Room Air Weight: 93.077 kg Body Mass Index (BMI) 27.8 Finger Stick Blood Glucose 98 Intake and Output for Last 24 Hours Intake Total 240 / 240 480 / 480 Balance 240 / 240 480 / 480 Laboratory Tests Past 24 Hrs PT 11.9 INR 0.9 APTT 27.0 Sodium 142 Potassium 3.6 Chloride 108 H Current Medications Acetaminophen 650 mg 05/28/18 14:58 Tylenol PO Aspirin 81 mg 05/29/18 08:00 05/29/18 08:33 mri, mra head/neck reviewed, normal echo normal Assessment/Plan mri negative small vessel infarct vs migraine equivalent plavix statin ok to dc if sinus on tele outpt psg (+ snoring, loud, witnessed apneas) 05/31/18 1056 <Electronically signed by Jos Wong MD> Date Jos Wong MD Cosigner Signature (if applicable): Date CC: Erwin Bae MD; Edith Rodriguez; Jos Wong MD Signed 12 LEAD ELECTROCARDIOGRAM Observed: 05/30/2018 Status: F Source: [place] 9:57 AM [facility] Cardiovascular Services [address] [facility] [place] [address] 12 Lead EKG 05/28/18 1305 MR#: [id number] Acct: [id number] Name: FRANCISCA VELASQUEZ Rep #: [id number] : 1955 62 From: aMrc Gunn MD Attending Dr: Tania Love MD Status: DIS AUGUSTO Ordering Dr: John Padilla MD Date: 05/28/18 Location: [facility] Sex: M C Admitted: 05/28/18 Test Reason : NEURO SX Blood Pressure : / mmHG Vent. Rate : 089 BPM Atrial Rate : 089 BPM P-R Int : 148 ms QRS Dur : 094 ms QT Int : 360 ms P-R-T Axes : 019 -16 004 degrees QTc Int : 438 ms Normal sinus rhythm Inferior infarct , age undetermined Abnormal ECG Confirmed by BRIAN ELIZABETH, MARC ([id number]), marketing editor ELMER ANTONY ([id number]) on 05/30/2018 9:56:50 AM Referred By: Edith Rodriguez Confirmed By:MARC GUNN MD 05/30/18 0956 Date Marc Gunn MD CC: Tania Love MD; Erwin Bae MD; Edith Rodriguez; John Padilla MD Signed DISCHARGE SUMMARY Observed: 05/29/2018 Status: F Source: [place] 5:15 PM [facility] REPOSITORY [facility] Medical Records Department [address] [place] [address] Discharge Summary 05/29/18 1138 MR#: [id number] Acct: [id number] Name: FRANCISCA VELASQUEZ Rep #: [id number] : 1955 62 From: Blank DAVISON PCP: Erwin Bae MD Status: DIS AUGUSTO Y Location: [place] [address] ADDENDUM by SAMAN Lloyd on 05/29/18 at 1424 Code Visit Neurology recommending changing aspirin to Plavix at discharge due to possible small vessel ischemia. Patient will be discharged on Plavix 75 mg daily. Outpatient PSG ordered by neurology as well. 05/29/18 1424 <Electronically signed by Blank DAVISON> Date Blank Lloyd cc: SAMAN Lloyd; Tania Love MD; Erwin Bae MD * Signed Addendum entered and electronically signed by SAMAN Lopez 05/29/18 14:24: Code Visit Neurology recommending changing aspirin to Plavix at discharge due to possible small vessel ischemia. Patient will be discharged on Plavix 75 mg daily. Outpatient PSG ordered by neurology as well. Original Note: <Blank Lloyd - Last Filed: 05/29/18 14:23> Discharge Date and Diagnosis Date of Admission: 05/28/18 Date of Discharge: 05/29/18 - Primary Discharge Diagnosis 1. Probable TIA 2. Hyperlipidemia - Secondary Discharge Diagnosis Chronic Problems Benign prostatic hyperplasia (Chronic) Hospital Course and Treatment Imaging Results: Diagnostic Data Brain CT 05/28/18 12:38 IMPRESSION: Chronic involutional changes of the brain. Electronically Signed: Jorge Ellis MD at 13:44 EDT Tel [phone], Service support , Brain MRI 05/28/18 14:58 IMPRESSION: Mild atrophy and minimal periventricular white matter disease without evidence for acute infarct.. Empty sella deformity of uncertain clinical significance Electronically Signed: Cameron Rosenbaum MD at 19:48 EDT , Service support , Neck MRA 05/28/18 14:58 IMPRESSION: Normal bilateral cervical carotid and vertebral arteries. Electronically Signed: Cameron Rosenbaum MD at 20:58 EDT , Service support , Head MRA 05/28/18 18:15 IMPRESSION: Narrowed A1 segment of the left anterior cerebral artery No other significant abnormality Electronically Signed: Cameron Rosenbaum MD at 20:57 EDT , Service support , Dr. Wong- Neurology Operations: None Procedures: 2-D Echocardiogram Summary of Care Provided: The patient is a 62 year old M admitted 05/28/2018 due to right-sided numbness. He has a past medical history of BPH. Neurology consulted. Probable TIA. MRI of brain showed no acute infarct. Neck MRA showed normal bilateral cervical carotid and vertebral arteries. Echocardiogram showed an EF of 65%, mild mitral valve insufficiency, RVSP estimated to be 29 mmHg. Negative for right to left intra-atrial shunt. Patient will continue home aspirin regimen. Started on statin for hyperlipidemia. EKG without ST-T changes. Troponin negative. Patient is stable for discharge home with follow-up with primary care physician in 1 week and neurology in 2-4 weeks. General: Alert, Oriented x3, Cooperative, No apparent distress HEENT: Atraumatic, PERRLA, EOMI, Normocephalic Oral: Moist Mucosa, No Gingival or Mucosal Lesions/ Ulcerations Neck: Supple, No JVD, Negative Carotid Bruits Lungs: Clear to auscultation, Normal air movement Cardiovascular: Regular rate, Regular Rhythm, Normal S1, Normal S2 Abdomen: Bowel Sounds Present, Soft, Non Tender, Non-Distended Extremities: No clubbing, No cyanosis, No edema Skin: No rashes, No breakdown Lymphatic: No Cervical, Supraclavicular, or Inguinal Adenopathy Neurological: Cranial nerves II-XII grossly intact, Motor Exam 5/5 strength throughout Psych/Mental Status: Normal Affect, Appropriate Patient seen exam prior to discharge. Physical assessment as noted above. Patient stable for discharge home with the follow-up her conditions as noted above. This patient was seen by SAMAN Lopez under the supervision of Dr. Love. - Physical Exam Vital Signs Temp Pulse Resp BP Pulse Ox 97.6 F L 76 18 149/92 H 97 05/29/18 08:29 05/29/18 11:32 05/29/18 08:29 05/29/18 08:29 05/29/18 08:29 Oxygen Delivery Method Room Air Weight: 205 lb 3.2 oz Body Mass Index (BMI) 27.8 Finger Stick Blood Glucose 98 Intake and Output for Last 24 Hours Intake Total 240 / 240 480 / 480 Balance 240 / 240 480 / 480 Laboratory Tests Past 24 Hrs WBC 6.5 RBC 5.13 Hgb 14.8 Hct 45.4 MCV 88.5 MCH 28.8 WBC RBC Hgb Hct MCV POC Glucose POC Glucose 98 Discharge Diet: Low fat/ Low Cholesterol Discharge Activity: Return to Normal Activity Call your doctor if you observe: Numbness or Tingling, Shortness of breath, Dizziness, Fainting spells, Chest pain Home Medications: Medications to take at Discharge Caffeine 200 mg PO DAILY 05/28/18 Cranberry Fruit Extract [Cranberry] 250 mg PO DAILY 05/28/18 Green Tea Mccune Extract [Green Tea Extract] 150 mg PO DAILY 05/28/18 L.acidoph,Paracasei, B.lactis [Probiotic] 1 each PO PRN PRN 05/28/18 Melatonin/Pyridoxine [Melatonin 5 mg Tablet] 5 mg PO QHS 05/28/18 Multivitamin [Daily Multiple Vitamin] 1 tab PO DAILY 05/28/18 Lake-3 Fatty Acids/Fish Oil [Fish Oil 1,000 mg Capsule] 1,000 mg PO DAILY 05/28/18 Tamsulosin HCl [Flomax] 0.4 mg PO DAILY 05/28/18 Tyrosine [l-Tyrosine] 500 mg PO DAILY 05/28/18 Ubidecarenone [Co Q-10] 100 mg PO DAILY 05/28/18 Atorvastatin Calcium 40 mg PO QHS #30 tablet 05/29/18 Clopidogrel Bisulfate [Plavix] 75 mg PO DAILY #30 tablet 05/29/18 Following Prescrptions Were Given to Patient: Atorvastatin Calcium 40 mg PO QHS #30 tablet Clopidogrel Bisulfate [Plavix] 75 mg PO DAILY #30 tablet Primary Care Physician: Erwin Bae MD [Primary Care Provider] - Please follow up with your Primary Care Physician in: 1 Week Please Follow Up With: Jos Wong MD When: 2-4 Weeks Disposition: Home Minutes spent on discharge:: 35 Patient Condition:: Stable Medical Necessity - Tobacco Use Smoking Status: Current every day smoker Tobacco Use: Vapor, - Meaningful Use Info Meaningful Use Diagnoses (Choose all that apply): None applicable <Paintsil,Wagener - Last Filed: 05/29/18 17:15> Discharge Date and Diagnosis - Secondary Discharge Diagnosis Chronic Problems (Last Updated 05/29/18 @ 13:59 by Jos Wong MD) Benign prostatic hyperplasia (Chronic) Hospital Course and Treatment Summary of Care Provided: The patient is a 62 year old M with no history of prior CVA or TIA who was admitted with right-sided numbness. Per H AND P, patient had reported symptoms starting 2 days prior to admission with numbness around the right corner of his mouth, right hand and foods that lasted for less than 30 minutes and resolve spontaneously. Patient came in with the results presentation a couple of hours prior to admission. He had associated ringing in his right ears as well as discomfort in the back of his neck. This resolved. Patient had a initial CT scan level is unremarkable; showed chronic ambulatory changes. Had a brain MRI showed mild atrophic, minimal periventricular white matter disease without evidence of acute infarct. MRA of the neck showed bilateral cervical carotid and vertebral arteries. MRA of the head showed narrowed A1 segment of the left CHARITY He was seen by neurology, started on Plavix, statin, outpatient polysomnogram plan. Subjective: Patient was seen and examined on the day of discharge. He complains of tingling numbness on the right side of the face as well as the lips. This had resolved early on in the evening but has recurred. Denies any weakness in his extremities. Denies any dizziness or chest pain or shortness of breath. - Physical Exam General: Alert, Oriented x3, Cooperative, No apparent distress HEENT: Atraumatic, PERRLA, EOMI, Normocephalic Oral: Moist Mucosa Neck: Supple Lungs: Clear to auscultation, Normal air movement Cardiovascular: Regular rate, Regular Rhythm, Normal S1, Normal S2, No murmurs Abdomen: Bowel Sounds Present, Soft, Non Tender, Non-Distended, No Hepato-splenomegaly Extremities: No edema Skin: No rashes, No breakdown Musculoskeletal: No Tenderness to Palpation of Joints or Extremities Lymphatic: No Cervical, Supraclavicular, or Inguinal Adenopathy Neurological: Cranial nerves II-XII grossly intact, Neuro grossly intact - except for tingling and numbness on right side of face Psych/Mental Status: Normal Affect, Appropriate Vital Signs Temp Pulse Resp BP Pulse Ox 98.5 F 96 16 143/90 H 95 05/29/18 14:30 05/29/18 14:30 05/29/18 14:30 05/29/18 14:30 05/29/18 14:30 Oxygen Delivery Method Room Air Weight: 93.077 kg Body Mass Index (BMI) 27.8 Finger Stick Blood Glucose 98 Intake and Output for Last 24 Hours Intake Total 240 / 240 960 / 960 Balance 240 / 240 960 / 960 Laboratory Tests Past 24 Hrs Triglycerides 87 Cholesterol 240 H LDL Cholesterol 191 H VLDL Cholesterol 17 HDL Cholesterol 32 L Discharge Diet: 2000 mg Sodium Diet Code Visit OBSV E AND M: [id number] Observation care discharge 05/29/18 1144 <Electronically signed by Blank DAVISON> Date Blank DAVISON Cosigner Signature (if applicable): Date CC: RESEARCH MECHANICMarlenaC Blank Lloyd; Tania Love MD; Erwin Bae MD Signed DISCHARGE INSTRUCTION Observed: 05/29/2018 Status: F Source: [place] 11:40 AM [facility] REPOSITORY [facility] Medical Records Department [address] [place] [address] Instructions for Home/Discharge Instructions 05/29/18 1135 MR#: [id number] Acct: [id number] Name: FRANCISCA VELASQUEZ Rep #: [id number] : 1955 62 From: Blank DAVISON PCP: Erwin Bae MD Status: ADM AUGUSTO - Discharge Diagnoses Current Active Problems: Current Active and Chronic Problems Benign prostatic hyperplasia (Chronic) You will use the following diet at home:: Cardiac Discharge Activity: Return to Normal Activity Call your doctor if you observe: Numbness or Tingling, Shortness of breath, Dizziness, Fainting spells, Chest pain Allergies/Adverse Reactions: Allergies Penicillins Allergy (Verified 05/28/18 12:19) Anaphylaxis Medications to take at Discharge Aspirin [Aspirin EC] 81 mg PO DAILY 05/28/18 Caffeine 200 mg PO DAILY 05/28/18 Cranberry Fruit Extract [Cranberry] 250 mg PO DAILY 05/28/18 Green Tea Mccune Extract [Green Tea Extract] 150 mg PO DAILY 05/28/18 L.acidoph,Paracasei, B.lactis [Probiotic] 1 each PO PRN PRN 05/28/18 Melatonin/Pyridoxine [Melatonin 5 mg Tablet] 5 mg PO QHS 05/28/18 Multivitamin [Daily Multiple Vitamin] 1 tab PO DAILY 05/28/18 Lake-3 Fatty Acids/Fish Oil [Fish Oil 1,000 mg Capsule] 1,000 mg PO DAILY 05/28/18 Tamsulosin HCl [Flomax] 0.4 mg PO DAILY 05/28/18 Tyrosine [l-Tyrosine] 500 mg PO DAILY 05/28/18 Ubidecarenone [Co Q-10] 100 mg PO DAILY 05/28/18 Atorvastatin Calcium 40 mg PO QHS #30 tablet 05/29/18 The following prescriptions were given: Atorvastatin Calcium 40 mg PO QHS #30 tablet Primary Care Physician: Erwin Bae MD [Primary Care Provider] - Please follow up with your Primary Care Physician in: 1 Week Test Results: Test results from this visit will be discussed in further detail at your follow-up appointment, if applicable. Please Follow Up With: Jos Wong MD When: 2-4 Weeks Proposed Discharge Date: 05/29/18 05/29/18 1140 <Electronically signed by Blank DAVISON> Date Blank DAVISON CC: Erwin Bae MD; Jos Wong MD LIPID PROFILE Collected: 05/29/2018 Status: F Source: [place] 6:42 AM [facility] REPOSITORY TYPE CODE TESTS RESULT OUT OF RANGE REFERENCE UNITS LAB L501.4900 200 mg/dL High CHOL 240 Result Comment: <200 mg/dL Desirable 200-240 mg/dL Borderline >240 mg/dL High Risk LAB L501.5000 mg/dL Normal TRIG 87 Result Comment: The drugs N-Acetylcysteine and Metamizole may falsely depress this assay. Serum Triglycerides Reference Interval Normal <150 mg/dL Borderline high 150 - 199 mg/dL High 200 - 499 mg/dL Very High > or = 500 mg/dL LAB L501.6400 mg/dL Low HDL 32 Result Comment: The drugs N-Acetylcysteine and Metamizole may falsely depress this assay. Reference Range HDL <40 mg/dL Low HDL Cholesterol HDL >or= 60 mg/dL High HDL Cholesterol LAB L501.6500 0-130 mg/dL High LDL 191 LAB L501.6600 5-40 mg/dL Normal VLDL 17 Performed By: #### L500.4100 #### [facility] [address] [place], [address] ECHOCARDIOGRAM COMPLETE Observed: 05/28/2018 Status: F Source: [place] 6:03 PM [facility] REPOSITORY [facility] Cardiovascular Services [address] [place] [address] Echo Complete 05/28/18 1527 MR#: [id number] Acct: [id number] Name: FRANCISCA VELASQUEZ M Rep #: [id number] : 1955 62 From: Gordy Perdomo MD Attending Dr: Edith Rodriguez Status: ADM AUGUSTO Ordering Dr: Edith Rodriguez MD Date: 05/28/18 Location: U Sex: M C Admitted: 05/28/18 Reason For Study: TIA/CVA Procedure This was a 2D Doppler, Color Flow transthoracic echocardiogram. The exam was of adequate technical quality. Exam performed portable in patient room. Left Ventricle Normal LV size. Left ventricular systolic function is normal. The estimated ejection fraction is 65 %. Diastolic function is indeterminate. No regional wall motion abnormalities noted. Right Ventricle Normal RV size. Normal systolic function. Atria Normal left atrium. Normal right atrium. No doppler evidence for ASD. Bubble contrast study negative for right to left interatrial shunt. Mitral Valve There is no mitral annular calcification. Mild focal mitral valve calcification of the posterior leaflet. The mitral valve chordae are thickened and/or calcified. Mild (1+) mitral valve insufficiency. Tricuspid Valve Normal tricuspid valve. Trivial tricuspid valve insufficiency. Right ventricular systolic pressure estimated to be 29 mmHg. Aortic Valve Trisinus/trileaflet aortic valve. Mild diffuse aortic valve thickening. Mild focal aortic valve calcification. Aortic sclerosis, no stenosis. Pulmonic Valve The pulmonic valve is not well visualized. Trivial pulmonic valve insufficiency. Great Vessels Normal sized aortic root. Pericardium/Pleural No pericardial effusion. Medication Performed a rapid injection of agitated mix of 9 cc saline and 1cc air to assess for atrial septal defect. MMode/2D Measurements AND Calculations LVIDd: 4.5 cm IVSd: 1.2 cm Ao root diam: 3.4 cm LVIDs: 3.2 cm LVPWd: 1.1 cm LA dimension: 4.0 cm RVDd: 3.2 cm FS: 29.2 % LAV(MOD-bp): 57.1 ml LA A4 area: 17.6 cm2 RA A4 area: 13.9 cm2 LAV(MOD-bp) Indexed: 26.4 ml/m2 LAV(MOD-sp2): 59.8 ml LAV(MOD-sp4): 53.3 ml Doppler Measurements AND Calculations MV E max [place]: 54.7 cm/sec Lat Peak E' [place]: 9.0 cm/sec Med Peak E' [place]: 8.0 cm/sec MV A max [place]: 64.8 cm/sec E/E' lat: 6.1 E/E' med: 6.8 MV E/A: 0.85 Ao V2 max: 90.5 cm/sec LV V1 max: 76.3 cm/sec PA V2 max: 74.2 cm/sec Ao max P.3 mmHg LV V1 max P.3 mmHg TR max [place]: 252.3 cm/sec TR max P.6 mmHg Interpretation Summary Left ventricular systolic function is normal. The estimated ejection fraction is 65 %. Mild focal mitral valve calcification of the posterior leaflet. The mitral valve chordae are thickened and/or calcified. Mild (1+) mitral valve insufficiency. Trivial tricuspid valve insufficiency. Aortic sclerosis, no stenosis. Trivial pulmonic valve insufficiency. Right ventricular systolic pressure estimated to be 29 mmHg. Diastolic function is indeterminate. Bubble contrast study negative for right to left interatrial shunt. Ordering Physician: Edith Rodriguez Referring Physician: Erwin Bae Performed By: Radha Rios, GARO, RVT 05/28/18 1802 Date Gordy Perdomo MD CC: Erwin Bae MD; Edith Rodriguez Date Dictated: 05/28/18 1527 Date Transcribed: 05/28/18 1802 Senior Portfolio Manager: Signed MRA HEAD ONLY WITHOUT Observed: 05/28/2018 Status: F Source: [place] CONTRAST 5:45 PM [facility] REPOSITORY [facility] Imaging Services [address] [place] [address] MRA Head ONLY without Contrast MR#: [id number] Acct: [id number] Name: FRANCISCA VELASQUEZ Rep #: [id number] : 1955 M 62 From: Cameron Rosenbaum MD PCP: Erwin Bae MD Status: ADM AUGUSTO Study: MRA Head ONLY without Contrast Date of Exam: 05/28/18 Exam# [id number] Ordering Dr: Edith Rodriguez MD STUDY: MRA OF THE HEAD WITHOUT CONTRAST REASON FOR EXAM: Male, 62 years old. CVA TECHNIQUE: 3-D wodo-up-jtrhtq (TOF) imaging was performed with MIPs. The study was performed unenhanced. COMPARISON: None. FINDINGS: Normal bilateral petrous carotid arteries. Normal right cavernous carotid artery with a normal supraclinoid bifurcation. Normal left cavernous carotid artery with a normal supraclinoid bifurcation. Normal right A1 segments of the anterior cerebral artery. Severely narrowed left A1 segments of the anterior cerebral artery. Normal intact anterior communicating artery (ACOM). Normal bilateral A2 segments of the anterior cerebral arteries. Normal right M1 and M2 segments of the middle cerebral arteries, with a normal M1 bifurcation. Normal left M1 and M2 segments of the middle cerebral arteries, with a normal M1 bifurcation. Right posterior communicating artery not visualized consistent with normal variant.). Normal left posterior communicating artery (PCOM). Normal bilateral vertebral arteries. Normal basilar artery with a normal basilar bifurcation. The visualized bilateral superior cerebellar (SCA) arteries are normal. Normal bilateral P1, P2 and visualized P3 segments of the posterior cerebral arteries. There is no demonstrated aneurysm of the [place]. There is no major vessel occlusion or hemodynamically significant stenosis. There is no demonstrated abnormality of the visualized brain. MRI/MRA Head ONLY without Contrast IMPRESSION: Narrowed A1 segment of the left anterior cerebral artery No other significant abnormality Electronically Signed: Cameron Rosenbaum MD at 20:57 EDT , Service support , CC: Erwin Bae MD; Edith Rodriguez Senior Portfolio Manager: Signed EMERGENCY DEPARTMENT Observed: 05/28/2018 Status: F Source: [place] SUMMARY 4:23 PM [facility] REPOSITORY [facility] Medical Records Department [address] [place] [address] Emergency Department Summary 05/28/18 1420 MR#: [id number] Acct: [id number] Name: FRANCISAC VELASQUEZ Rep #: [id number] : 1955 62 From: John Padilla MD PCP: Erwin Bae MD Status: ADM AUGUSTO - ER Visit Summary Date of Service: 05/28/18 Chief Complaint: Right-sided numbness History of Present Illness: The patient is a [address] Erwin Bae. He reports that 2 days ago he had numbness in his right face, hand, and foot the last approximately 15 minutes. This resolved and he did not think much of it. However, he reports that at 9:00 this morning the numbness on the right returned and has waxed and waned since that time. He reports that he still has paresthesias on the sole of his right foot. Patient denies any weakness, slurred speech, a aphasia, vertigo, or change in vision. Review of systems is negative. Physical Examination: Vitals: Stable. Afebrile. General: Well-nourished and well-developed. Head: Normocephalic atraumatic. Neck: Supple, no lymphadenopathy. No JVD. Nontender. Cardiovascular: Regular rate and rhythm. No murmurs. Respiratory: No respiratory distress. Clear to auscultation bilaterally. Abdominal: Soft, nontender, nondistended, normal bowel sounds. No guarding, rebound, or peritoneal signs. Back: Nontender. Extremities: Nontender, no edema. Skin: Normal color, no rash. Neurologic: Alert and oriented 3. Cranial nerves II through XII are intact. Normal strength and sensation. Psych: Normal affect. Test Results: EKG is sinus at 89 with no acute changes. Troponin is negative. INR 0.9. PTT is 27.0. Chloride is 108. CBC is normal. CT brain shows chronic changes. Emergency Department Course and Treatment: Patient's NIH scale is 0. He is not a TPA candidate. Treatment Plan: Patient will be discussed with the hospitalist. He will be admitted for further evaluation and treatment. Disposition: Admitted in stable condition. Impression: 1. TIA. This note was generated with [employer] software. It may contain incorrect words, spelling, and punctuation that were not noted in review of the chart prior to signing ED Disposition - Plan for ED Patient: Chief Complaint: Neuro S/Sx Referrals: Erwin Bae MD [Primary Care Provider] - What to do if you have Problems For any increased pain, shortness of breath, bleeding, nausea or vomiting, chest pain, or any unexpected problems, contact your Primary Care Provider. Call [facility] ([phone]) or report to the closest Emergency Room. Call 911 if necessary. 05/28/18 1623 <Electronically signed by John Padilla MD> Date John Padilla MD Cosigner Signature (If Indicated): Date CC: Erwin Bae MD HISTORY AND PHYSICAL Observed: 05/28/2018 Status: F Source: [place] EXAM 3:12 PM [facility] REPOSITORY [facility] Medical Records Department [address] [place] [address] History and Physical 05/28/18 9066 MR#: [id number] Acct: [id number] Name: FRANCISCA VELASQUEZ Rep #: [id number] : 1955 62 From: Edith Rodriguez MD PCP: Erwin Bae MD Status: ADM AUGUSTO Y Location: [place] [address]-1 Problem List (1) Benign prostatic hyperplasia Status: Chronic History of Present Illness Date of Admission: 05/28/18 Chief Complaint: Right-sided numbness. The patient is a 62 year old M with past medical history as mentioned above presented to the emergency room because of right-sided numbness. His symptoms started 2 days ago with numbness around the right corner his mouth, right hand and right foot that lasted for about 15-30 minutes and resolved spontaneously. On that day, patient did not pay attention to those symptoms. Today, he went to work and he started having exact same symptoms with numbness on the right side of his face on the corner of the mouth as well as right hand and right foot and his symptoms today lasted for about couple of hours and he decided to come to the emergency room. He reported associated ringing in the right ear as well as some discomfort in the back of his neck. He denied blurred vision, slurred speech, focal arm or leg weakness. He denied chest pain or shortness of breath. He denied vertigo or ear symptoms except right ear ringing which resolved. At this time, he mentioned that numbness in the right side is almost gone. In the emergency department, initial blood pressure was slightly elevated and improved. His NIH score was 0. His routine blood work was unremarkable. His EKG revealed normal sinus rhythm without evidence of cardiac arrhythmias or ischemic changes. His troponin was negative. Pro time and INR were normal. CT scan brain showed no acute findings. Patient is being admitted for right side paresthesia probably due to TIA for evaluation. Past Medical History Past Medical History (Chronic Problems): Chronic Problems Benign prostatic hyperplasia (Chronic) Allergies Penicillins Allergy (Verified 05/28/18 12:19) Anaphylaxis Home Medications: Ambulatory Orders Medication Instructions Recorded Aspirin [Aspirin EC] 81 mg PO DAILY 05/28/18 Caffeine 200 mg PO DAILY 05/28/18 Surgical History: no surgical history Psychiatric History: No pertinent psych hx Lives: Spouse/ Significant Other Smoking Status: Current every day smoker Tobacco Use: Vapor Alcohol: None Drugs: None - *Family History Maternal History Items: Stroke, - - Multiple myeloma. Paternal History Items: Hypertension Review of Systems Constitutional: Denies: Anorexia, Chills, Fever, Night Sweats Eyes: Denies: Blurred vision, Cataracts, Drainage, Eyelid Inflammation, Redness HEENT: Denies: Difficulty Hearing, Ear Pain, Eye Pain Cardiovascular: Denies: Chest Pain, Chest Pressure, Chest Tightness, Edema, Heaviness, Palpitations, Syncope Respiratory: Denies: Cough, Pleuritic Pain, Shortness of Breath, Sputum production, Wheezing Gastrointestinal: Denies: Abdominal Pain, Constipation, Diarrhea, Nausea, Vomiting Genitourinary: Denies: Dysuria, Frequency, Hematuria Musculoskeletal: Denies: Arm Pain, Back Pain, Foot Pain Skin: Denies: Dryness, Rash Neurological: Reports: Numbness, Tingling. Denies: Balance problems, Blurred vision, Double vision, Slurred speech, Confusion, Headaches, Incoordination Psychiatric: Denies: Anxiety, Depression Endocrine: Denies: Change in Body Habitus, Polydipsia VTE Information - Inpt Only VTE Present on Admission: No VTE Mechan Device Prophylaxis: None VTE Pharm Prophylaxis ordered?: Yes - Physical Exam General: Alert, Oriented x3, Cooperative, No apparent distress HEENT: Atraumatic, PERRLA, EOMI, Normocephalic Oral: Moist Mucosa, No Gingival or Mucosal Lesions/ Ulcerations Neck: Supple, No JVD, Negative Carotid Bruits, Trachea Midline, Thyroid Normal Size and Texture Lungs: Clear to auscultation, Normal air movement, No rhonchi, No wheeze, No rales Cardiovascular: Regular rate, Regular Rhythm, Normal S1, Normal S2, PMI Normal Abdomen: Bowel Sounds Present, Soft, Non Tender, Non-Distended, No Hepato-splenomegaly Extremities: No clubbing, No cyanosis, No edema Skin: No rashes, No breakdown Lymphatic: No Cervical, Supraclavicular, or Inguinal Adenopathy Neurological: Cranial nerves II-XII grossly intact, Motor Exam 5/5 strength throughout Psych/Mental Status: Normal Affect, Appropriate, Alert and oriented to time, place, person, mood and affect Vital Signs Temp Pulse Resp BP Pulse Ox 98.5 F 83 18 136/86 H 99 05/28/18 12:19 05/28/18 14:09 05/28/18 14:09 05/28/18 14:09 05/28/18 14:09 Oxygen Delivery Method Room Air Weight: 207 lb 10.807 oz Body Mass Index (BMI) 28.1 Finger Stick Blood Glucose 98 Laboratory Tests Past 24 Hrs POC Glucose POC Glucose 98 Clinical Impression(s) from Imaging Studies Brain CT 05/28/18 12:38 IMPRESSION: Chronic involutional changes of the brain. Electronically Signed: Jorge Ellis MD at 13:44 EDT Tel [phone], Service support , Assessment/Plan This is a 62 years old male patient presented to the emergency room because of right side paresthesia and he is being admitted for evaluation for possible TIA. #1 right-sided paresthesia/probable TIA: CT scan brain without acute findings. At this time, NIH stroke score is 0. EKG revealed normal sinus rhythm without evidence of cardiac arrhythmias or ischemic changes. Neurological examination is intact, no focal deficits. Plan: Admit to PCU for observation, cardiac monitoring, NIH stroke scale, start aspirin 81 mg p.o. daily, Lipitor 80 mg p.o. daily, fasting lipid profile, MRI brain, MRA of the head and neck with and without contrast, 2D echocardiogram, monitor blood pressure. #2 benign prostatic hypertrophy: Continue Flomax. #3 DVT prophylaxis: Subcu Lovenox. This note was generated with [employer] dictation software. It may contain incorrect words, spelling, and punctuation that were not noted in checking the note before signing. Code Visit OBSV E AND M: 75236 Initial observation care L2 05/28/18 1512 <Electronically signed by Edith Rodriguez MD> Date Edith Rodriguez MD Cosigner Signature: Date (if applicable) CC: Erwin Bae MD; Edith Rodrgiuez Signed BRAIN WITHOUT Observed: 05/28/2018 Status: F Source: [place] CONTRAST 2:58 PM [facility] REPOSITORY [facility] Imaging Services [address] [place], [place] [address] [place] [address] Brain without Contrast MR#: [id number] Acct: [id number] Name: FRANCISCA VELASQUEZ Rep #: [id number] : 1955 M 62 From: Cameron Rosenbaum MD PCP: Erwin Bae MD Status: ADM AUGUSTO Study: Brain without Contrast Date of Exam: 05/28/18 Exam# [id number] Ordering Dr: Edith Rodriguez MD STUDY: MRI BRAIN WITHOUT CONTRAST REASON FOR EXAM: Male, 62 years old. Right-sided numbness TECHNIQUE: Standardized multiplanar fat and water weighted pulse sequences were obtained. COMPARISON: CT of the brain on May 28, 2018 FINDINGS: Mild atrophy.. Minimal periventricular white matter ischemic changes without mass effect or restricted diffusion. Normal bilateral basal ganglia. Normal thalami. There is no extra-axial fluid accumulation. Normal flow voids within the major intracranial circulation suggesting patency by spin echo criteria. Empty sella deformity of uncertain clinical significance. Normal, infundibular stalk, optic chiasm and hypothalamus. Normal tectal plate and pineal gland. Normal midbrain, lake and medulla. Normal cerebellum. Normal basal cisterns. Normal bilateral temporal bones. Normal bilateral internal auditory canals. No demonstrated orbital abnormality, within the constraints of a routine brain study. Mild mucosal thickening of the bilateral maxillary and left sphenoid sinus Normal calvarium and skull base. Normal visualized soft tissue structures. Normal visualized upper cervical spine. MRI/Brain without Contrast IMPRESSION: Mild atrophy and minimal periventricular white matter disease without evidence for acute infarct.. Empty sella deformity of uncertain clinical significance Electronically Signed: Cameron Rosenbaum MD at 19:48 EDT , Service support , CC: Erwin Bae MD; Edith Rodriguez Senior Portfolio Manager: Signed MRA NECK WITH AND W/O Observed: 05/28/2018 Status: F Source: [place] CONTRAST 2:58 PM [facility] REPOSITORY [facility] Imaging Services [address] [place] [id number] MRA Neck WITH and W/O Contrast MR#: [id number] Acct: [id number] Name: FRANCISCA VELASQUEZ Rep #: [id number] : 1955 M 62 From: Cameron Rosenbaum MD PCP: Erwin Bae MD Status: ADM AUGUSTO Study: MRA Neck WITH and W/O Contrast Date of Exam: 05/28/18 Exam# [id number] Ordering Dr: Edith Rodriguez MD STUDY: MRA NECK WITH AND WITHOUT CONTRAST REASON FOR EXAM: Male, 62 years old. Stroke TECHNIQUE: 3-D dzdx-zt-qdfkpk (TOF) imaging was performed in an 1.5 T MRI scanner. 9 ml of Gadavist was administered for the contrast enhanced images. COMPARISON: None. FINDINGS: RIGHT CAROTID ARTERIES: Normal right common carotid artery (CCA). Normal right common carotid bulb. Normal origin of the right internal carotid (ICA) artery without a hemodynamically significant stenosis. Normal visualized cervical portion of the right internal carotid artery. Normal origin of the right external carotid artery (ECA). LEFT CAROTID ARTERIES: Normal left common carotid artery (CCA). Normal left common carotid bulb. Normal origin of the left internal carotid (ICA) artery without a hemodynamically significant stenosis. Normal visualized cervical portion of the left internal carotid artery. Normal origin of the left external carotid artery (ECA). VERTEBRAL ARTERIES: Normal antegrade flow within the bilateral vertebral artery without a hemodynamically significant stenosis. MRI/MRA Neck WITH and W/O Contrast IMPRESSION: Normal bilateral cervical carotid and vertebral arteries. Electronically Signed: Cameron Rosenbaum MD at 20:58 EDT , Service support , CC: Erwin Bae MD; Edith Rodriguez Senior Portfolio Manager: Signed BEDSIDE GLUCOSE Collected: 05/28/2018 Status: F Source: [place] 1:31 PM [facility] REPOSITORY TYPE CODE TESTS RESULT OUT OF RANGE REFERENCE UNITS LAB L501.080 70-110 mg/dL Normal BEDSIDE GLU 98 Result Comment: MANAGEMENT OF PATIENT CARE PER NURSING PROTOCOL Performed By: #### L501.080 #### [facility] Point of [place] [place] [address] CBC W/DIFF, AUTOMATED Collected: 05/28/2018 Status: F Source: [place] 1:05 PM [facility] REPOSITORY TYPE CODE TESTS RESULT OUT OF RANGE REFERENCE UNITS LAB L100.1000 4.4-11.0 K/mm3 Normal WBC 6.5 LAB L100.1200 4.6-6.2 M/mm3 Normal RBC 5.13 LAB L100.1300 13.0-16.5 g/dl Normal HGB 14.8 LAB L100.1400 40-54 % Normal HCT 45.4 LAB L100.1500 80-94 fL Normal MCV 88.5 LAB L100.1600 27.0-32.0 pg Normal MCH 28.8 LAB L100.1700 32-36 g/gl Normal MCHC 32.6 LAB L100.1810 11.6-14.6 % Normal RDW CV 14.4 LAB L100.1820 35.1-43.9 fl High RDW SD 46.6 LAB L100.1900 150-450 K/mm3 Normal PLT 251 LAB L100.2000 6.2-12.0 fl Normal MPV 9.3 LAB L100.2100 47-70 % Normal NEUT% 67.3 LAB L100.2200 19-41 % Normal LY% 21.4 LAB L100.2300 0-10 % Normal MONO% 9.2 LAB L100.2400 0-5 % Normal EO% 1.4 LAB L100.2500 0-1 % Normal BASO% 0.5 LAB L100.2550 0.0-0.9 % Normal IM GRAN % 0.200 Result Comment: IG% - Immature Granulocytes (promyelocytes, myelocytes and metamyelocytes) > 1% indicates that a LEFT SHIFT is Present. LAB L100.2620 2.0-7.7 X10 3/uL Normal Absolute Neut 4.4 LAB L100.2720 0.83-4.51 X10 3/ul Normal Absolute Lymph 1.39 Performed By: #### L100.0100 #### [facility] [address] [place], [place], [address] BASIC METABOLIC Collected: 05/28/2018 Status: F Source: [place] PROFILE (BMP) 1:05 PM [facility] REPOSITORY TYPE CODE TESTS RESULT OUT OF RANGE REFERENCE UNITS LAB L501.0100 74-106 mg/dL Normal GLU 96 Result Comment: Please note revised GLUCOSE reference range effective 2017. LAB L501.1000 7-18 mg/dL Normal BUN 17 LAB L501.1100 0.70-1.30 mg/dL Normal CREAT,SERUM 1.28 Result Comment: The validity of the calculated GFR AND GFRAA in patients over 70 years has not been determined. Clinical correlation is essential. LAB L501.1110 >60 mL/min Normal EST GFR 61 Result Comment: Non- GFR Calc LAB L501.1115 >60 mL/min Normal EST GFR - AA 73 Result Comment: GFR Calc LAB L501.1255 ml/min Normal Estimated CRCL 66.52 LAB L501.1300 10-20 RATIO Normal BUN/CRE 13.3 LAB L501.2200 8.5-10 mg/dL Normal .1 CA 9.3 LAB L501.5300 136-14 mmol/L Normal 5 NA 142 LAB L501.5600 3.5-5. mmol/L Normal 1 K 3.6 LAB L501.5900 98-107 mmol/L High CL 108 LAB L501.6100 21.0-3 mmol/L Normal 2.0 CO2 25.0 LAB L501.6200 5-15 Normal GAP 9 Performed By: #### L500.2500, L501.4010 #### [facility] [address] [place], [address] TROPONIN-I Collected: 05/28/2018 Status: F Source: [place] 1:05 PM [facility] REPOSITORY TYPE CODE TESTS RESULT OUT OF RANGE REFERENCE UNITS LAB L501.4010 <0.045 ng/mL Normal < 0.015 TROPONIN-I Result Comment: TROPONIN-I EXPECTED VALUES <0.045 Negative 0.045 - 0.590 Consistent with Cardiac Damage > OR = 0.600 Critical Value Not every elevated troponin is indicative of DE. These values should be used with clinical judgement in examining the patient's clinical picture for diagnosis. To establish a diagnosis of DE versus myocardial injury, there must be a demonstrated rise and/or fall in the troponin values, in addition to ischemic symptoms, EKG changes, new regional wall motion abnormality, and/or angiographical evidence. PLEASE NOTE: REFERENCE RANGES EDITED 17 Performed By: #### L500.2500, L501.4010 #### [facility] [address] [place], [address] PROTHROMBIN TIME W/INR Collected: 05/28/2018 Status: F Source: [place] 1:05 PM [facility] REPOSITORY TYPE CODE TESTS RESULT OUT OF RANGE REFERENCE UNITS LAB L300.4150 11.7-14.9 SECONDS Normal PROTIME 11.9 LAB L300.4200 Normal INR 0.9 Performed By: #### L300.3900, L300.4310 #### [facility] [address] [place], [address] PARTIAL THROMBOPLAST Collected: 05/28/2018 Status: F Source: [place] TIME 1:05 PM [facility] REPOSITORY TYPE CODE TESTS RESULT OUT OF RANGE REFERENCE UNITS LAB L300.4310 24.1-36.2 Seconds Normal PTT 27.0 Performed By: #### L300.3900, L300.4310 #### [facility] [address] [place], [address] BRAIN/HEAD WITHOUT Observed: 05/28/2018 Status: F Source: [place] CONTRAST 12:40 PM [facility] REPOSITORY [facility] Imaging Services [address] [place] [address] Brain/Head without Contrast MR#: [id number] Acct: [id number] Name: FRANCISCA VELASQUEZ M Rep #: [id number] : 1955 M 62 From: Jorge Ellis MD PCP: Erwin Bae MD Status: REG ER Study: Brain/Head without Contrast Date of Exam: 05/28/18 Exam# [id number] Ordering Dr: John Padilla MD STUDY: CT BRAIN WITHOUT CONTRAST REASON FOR EXAM: Male, 62 years old. Numbness of the right side of the body. RADIATION DOSAGE (If Supplied By Facility): CTDIvol = ( 44.99 ) mGy, DLP = ( 812.98 ) mGycm TECHNIQUE: Transaxial CT imaging of the brain was performed without administration of intravenous contrast material. Individualized dose optimization techniques were used for this CT. COMPARISON: None. FINDINGS: Normal soft tissue structures. Normal calvarium. There is mild cerebral atrophy with widening of the extra- axial spaces and ventricular dilatation. Normal white matter tracts of the cerebral hemispheres. Normal basal ganglia and thalami. Normal brainstem. Normal cerebellum. There is no intracranial hemorrhage. There are no findings of an acute ischemic infarction. Atherosclerotic calcification of the cavernous portions of the internal carotid arteries bilaterally. Minimal mucosal thickening of the left maxillary sinus. CT/Brain/Head without Contrast IMPRESSION: Chronic involutional changes of the brain. Electronically Signed: Jorge Ellis MD at 13:44 EDT Tel [phone], Service support , CC: Erwin Bae MD; John Padilla MD Senior Portfolio Manager: Signed ALLERGIES ALLERGIES DATE TYPE / CODE NAME / CODE REACTION SEVERITY SOURCE 07/05/2018 DRUG PENICILLIN ANAPHYLAXIS High INGREDI/419 Other [place] 952942(SN Repository ED CT) 05/28/2018 Drug Penicillins/F001 Anaphylaxis Unknown [place] Allergy/416 107302(RXNORM) Community 230244([facility] Hospital ED CT) Repository /[id number] PENICILLIN [facility] [employer] System CT) Repository ENCOUNTERS ENCOUNTERS ADMIT/DISCHARGE ACCOUNT NUMBER ADMITTING ENCOUNTER LOCATION SOURCE CLASS 07/23/2018 [id number] [facility] ding:US Repository 07/15/2018 [id number] Ambulatory [facility] ding:LAB Repository 07/05/2018/07/11/20 [id number] [facility], Inpatient [place] 18 RIC R Encounter [facility] Other [place] Repository 07/05/2018/07/11/20 [id number] [facility], Inpatient [place] [facility] 18 RIC R [facility] MEDICAL Repository Harini nRoom: 7105Bed: 02 07/04/2018/07/05/20 [id number] Emergency [place] [address] ding:ED Repository 06/05/2018 [id number] Ambulatory [facility] ding:MTLAB Repository 05/28/2018/05/29/20 [id number] [facility], Ambulatory [place] ding:PCURoom Repository : [id number]: 1 05/28/2018 [id number] [facility], Ambulatory BMSBuilding: [place] Ghasem BMS.[facility] Repository 05/28/2018 [id number] [facility], Ambulatory BMSBuilding: [place] Ghasem BMS.[facility] Repository 05/28/2018/05/29/20 [id number] Ambulatory BMSBuilding: [place] 18 [facility] Repository PAYERS PAYERS ENCOUNTER GUARANTOR PAYER SUBSCRIBER SOURCE 07/23/2018 FRANCISAC VELASQUEZ426 Insurance:AEEvan VELASQUEZB: [facility], Number: [id number] [place] [address]Fcr: [id number] Repository Date:3454-65-[address] [place] [address], [place] [address]TD: 07/23/2018 Secondary NOT GIVENUNK [place] Insurance:SELF PAY [facility] Number: Effective Repository Date:2018-07-18 07/15/2018 FRANCISCA Hsieh Primary FRANCISCA VELASQUEZ426 Insurance:AEEvan VELASQUEZB: [facility], Number: [id number] [facility] [place] [address]Bdt: [id number] Repository Date:5384-62-48[address] () [id number] [place] [address]GG: 07/15/2018 Secondary NOT GIVENUNK [place] Insurance:SELF PAY [facility] Number: Effective Repository Date:2018-07-15 07/05/2018 FRANCISCA Hsieh Primary FRANCISCA Hsieh [facility] WILLIAMSDOB: Insurance:AETNA WILLIAMSDOB: Health [facility] CHOICE POS IIPolicy [id number] [facility], Number: [id number]: [id number] Date: () 07/04/2018 FRANCISCA Hsieh Primary FRANCISCA Hsieh [place] VELASQUEZ426 Insurance:AETNAPolicy WILLIAMSDOB: [facility] [place], Number: [id number] [place] [address]Svo: [id number] Repository Date:1116-44-84[address] () [address], [place] [address]TC: 07/04/2018 Secondary NOT GIVENUNK [place] Insurance:SELF PAY [facility] Number: Effective Repository Date:2018-07-04 06/05/2018 FRANCISCA Hsieh Primary FRANCISCA Hsieh Kendallrandy VELASQUEZ426 Insurance:AETNAPolicy WILLIAMSDOB: [facility], Number: [id number] [facility] [place] [address]Xzy: [id number] Repository Date:1649-18-11U[address] () [address], [place] [address]IH: 06/05/2018 Secondary NOT GIVENUNK [place] Insurance:SELF PAY [facility] Number: Effective Repository Date:2018-06-05 05/28/2018 FRANCISCA Hsieh Primary FRANCISCA Hsieh [place] [id number] Insurance:AETNAPolicy WILLIAMSDOB: [facility] [place], Number: [id number] [address]Zsn: [id number] Repository Date:9241-41-11[address] ([address]) [address] [place] [address]QR: 05/28/2018 Secondary NOT GIVENUNK [place] Insurance:SELF PAY [facility] Number: Effective Repository Date:2018-05-28 05/28/2018 FRANCISCA Hsieh Primary FRANCISCA VELASQUEZ426 Insurance:AETNAPolicy WILLIAMSDOB: Community [facility], Number: [id number] [facility], [place] [address]Aun: [id number] Repository Date:8947-54-76JJ [address] ([address]) [address]QK [place] [address]CK: 05/28/2018 Secondary NOT GIVENUNK [place] Insurance:SELF PAY [facility] Number: Effective Repository Date:2018-05-28 05/28/2018 FRANCISCA Hsieh Primary FRANCISCA VELASQUEZ426 Insurance:AETNAPolicy WILLIAMSDOB: Community [facility], Number: [id number] [facility] Hospital, [place] [address]Tbo: [id number] Repository Date:5734-75-07EW [address] ([address]) [address] [place] [address]UM: 05/28/2018 Secondary NOT GIVENUNK [place] Insurance:SELF PAY [facility] Number: Effective Repository Date:2018-05-28 05/28/2018 FRANCISCA Hsieh Primary FRANCISCA VELASQUEZ426 Insurance:AETNAPolicy WILLIAMSDOB: Community [facility] [place], Number: [id number] [facility], [place] [address]Wyx: [id number] Repository Date:1551-88-26[address] ([address]) [address] [place] [address]FF: 05/28/2018 Secondary NOT GIVENUNK [place] Insurance:SELF PAY [facility] Number: Effective Repository Date:2018-05-28
== END ==
PROVIDERS: Family Provider Family Medicine; PCP Family Medicine; Referring Provider Family Medicine; Visit Provider Family Medicine
DX: R25.2 Cramp and spasm (principal)
CPT/HCPCS: 36415; 80053; 82728; 85025; 85045

== ENCOUNTER → 2018-07-23 14:51 | Outpatient (CLI) | payer OTHER, SELFPAY ==
[2018-07-04 22:12] VITALS: BMI 27.8
--- NOTE | 2018-07-23 14:53 | US_ITS ---
STUDY: THYROID ULTRASOUND REASON FOR EXAM: Male, 63 years old. Enlarged thyroid gland. TECHNIQUE: Ultrasound evaluation of the thyroid was performed with real-time and static [place]-scale imaging. COMPARISON: CT cervical spine 07/04/2018. FINDINGS: RIGHT LOBE: The right lobe of the thyroid gland is enlarged and measures 7.3 x 2.5 x 2.5 cm. There is a heterogeneous echotexture. Multiple nodules, midpole solid measuring 2.3 x 1.5 x 1.9 cm, inferior pole solid measuring 2.1 x 2.0 x 1.8 cm, inferior pole cystic measuring 0.7 x 0.7 x 0.6 cm, with peripheral wall calcification, and superior pole complex solid measuring 1.4 x 0.9 x 0.8 cm. LEFT LOBE: The left lobe of the thyroid gland is enlarged and measures 9.3 x 2.9 x 4.0 cm cm. There is a heterogeneous echotexture. Solid nodule inferior pole measuring 2.2 x 2.1 x 1.8 cm on the images provided there is a solid nodule superior pole measuring 2.3 x 1.5 x 2.1 cm. ISTHMUS: The isthmus measures 0.7 cm which is enlarged. Isthmic solid nodule measuring 1.7 x 1.4 x 1.1 cm. . The regional lymph nodes are normal. Increased vascularity in both lobes. US/Thyroid IMPRESSION: Significantly enlarged thyroid gland containing multiple primarily solid nodules the largest nodule in both lobes measuring 2.3 cm. Electronically Signed: Chacho Morse MD at 3:56 EST , Service support ,
--- OUTSIDE RECORDS SUMMARY | 2018-09-08 20:33 | XMS RPT_ITS ---
:1955 Author Organization OHIP Support Name Relationship Address Phone [employer] Unavailable [address] + [place] [address] DILIP VELASQUEZ Unavailable [address] + [place] [address] [employer] Unavailable [address] + [place] [address] DILIP VELASQUEZ Unavailable [address] + [place] [address] [employer] Unavailable [address] + [place] [address] DILIP VELASQUEZ Unavailable [address] + [place] [address] [employer] Unavailable [address] + [place] [address] DILIP VELASQUEZ Unavailable [address] + [place] [address] [employer] Unavailable [address] + [place] [address] DILIP VELASQUEZ Unavailable [address] + [place] [address] [employer] Unavailable [address] + [place] [address] DILIP VELASQUEZ Unavailable [address] + [place] [address] [employer] Unavailable [address] + [place] [address] DILIP VELASQUEZ Unavailable [address] + [place] [address] [employer] Unavailable [address] + [place] [address] DILIP VELASQUEZ Unavailable [address] + [place] [address] [employer] Unavailable [address] + [place] [address] DILIP VELASQUEZ Unavailable [address] + [place] [address] Care Team Providers Name Role Phone Bae, Erwin Primary Care Unavailable Ashelfah, Ghasem Admitting Unavailable Ashelfah, Ghasem Referring Unavailable Paintsil, [place] Attending Unavailable Jos Wong Consulting Unavailable Ashelfah, Ghasem Admitting Unavailable Ashelfah, Ghasem Attending Unavailable Ashelfah, Ghasem Referring Unavailable Bae, Erwin Primary Care Unavailable Ashelfah, Ghasem Consulting Unavailable Ashelfah, Ghasem Admitting Unavailable SAMAN Lopez Attending Unavailable Ashelfah, Ghasem Referring Unavailable Bae, Erwin Primary Care Unavailable Jos Wong Consulting Unavailable Paintsil, [place] Consulting Unavailable Bae, Erwin Attending Unavailable Bae, Erwin Referring Unavailable Bae, Erwin Primary Care Unavailable Gordy Perdomo Attending Unavailable Ashelfah, Ghasem Referring Unavailable Bae, Erwin Primary Care Unavailable Hortensia De Oliveira Attending Unavailable Bae, Erwin Attending Unavailable Bae, Erwin Referring Unavailable Bae, Erwin Primary Care Unavailable Bae, Erwin Attending Unavailable Bae, Erwin Referring Unavailable Bae, Erwin Primary Care Unavailable Jos Wong Attending Unavailable Jos Wong Referring Unavailable Bae, Erwin Primary Care Unavailable RIC MELGAR Admitting Unavailable JUNAID HACKETT Attending Unavailable REFUGIO GOODMAN JR Consulting Unavailable RIC MELGAR Admitting Unavailable MD JUNAID HACKETT Attending Unavailable TOM MAGALLANES) Consulting Unavailable DEIGO FOWLER Consulting Unavailable NAYELY PLASCENCIA Consulting Unavailable REFUGIO GOODMAN Consulting Unavailable PROBLEMS PROBLEMS DATE TYPE CONDITION / CODE ATTENDING STATUS SOURCE 07/11/2018 Active Melena / ALSHURBAJI, Active [facility] K92.1(ICD-10) EHAB Other [place] Repository 07/11/2018 Active Hemorrhage of ALSHURBAJI, Active [facility] anus and rectum EH Other [place] / K62.5(ICD-10) Repository 07/05/2018 Active Syncope and ALSHURBAJI, Active [facility] collapse / AB Other [place] R55(ICD-10) Repository 07/11/2018 Admitting Unknown / MD LEW Active [facility] diagnosis UNK(Unknown) [facility] Repository 06/05/2018 Unknown R29.818 - Other Erwin Bae Active [place] [facility] the nervous Repository system / R29.818(ICD-10) PROCEDURES PROCEDURES No Procedure Records FoundRESULTS RESULTS THYROID Observed: 07/23/2018 Status: F Source: [place] 2:53 PM [facility] REPOSITORY [facility] Imaging Services [address] [place] [address] Thyroid MR#: [id number] Acct: [id number] Name: FRANCISCA VELASQUEZ Rep #: [id number] : 1955 M 63 From: Chacho Morse PCP: Erwin Bae MD Status: REG CLI Study: Thyroid Date of Exam: 07/23/18 Exam# [id number] Ordering Dr: Erwin Bae MD STUDY: THYROID [...] Service support , CC: Erwin Bae MD Recreational Sports Director: Signed CBC W/DIFF, AUTOMATED Collected: 07/15/2018 Status: F Source: [place] 11:21 AM [facility] REPOSITORY TYPE CODE TESTS RESULT OUT OF [...] 1.25 Performed By: #### L100.0100, L100.9950 #### [facility] [address] [place], [place], [id number] RETIC PANEL Collected: 07/15/2018 Status: F Source: [place] 11:21 AM [facility] REPOSITORY TYPE CODE TESTS RESULT OUT OF [...] marrow. Performed By: #### L100.0100, L100.9950 #### [facility] [address] [facility]. [place], [place], [address] COMPREHENSIVE METABOLIC Collected: 07/15/2018 Status: F Source: [facility] 11:21 AM [facility] REPOSITORY TYPE CODE TESTS RESULT OUT OF [...] 9 Performed By: #### L500.4050, L503.6550 #### [facility] [address] [facility] [place], [address] FERRITIN Collected: 07/15/2018 Status: F Source: [place] 11:21 AM [facility] REPOSITORY TYPE CODE TESTS RESULT OUT OF RANGE REFERENCE UNITS LAB L503.6550 26-388 ng/mL Normal FERRITIN 66 Performed By: #### L500.4050, L503.6550 #### [facility] [address] [facility] [place], [address] 12 LEAD ELECTROCARDIOGRAM Observed: 07/12/2018 Status: F Source: [place] 9:21 AM [facility] REPOSITORY [facility] Cardiovascular Services [address] [place] [address] 12 Lead EKG 07/04/181 MR#: [id number] Acct: [id number] Name: FRANCISCA VELASQUEZ Rep #: [id number] : 1955 62 From: Marc Gunn MD [...] ECG Confirmed by MARC GUNN MD ([id number]), supervising film or videotape editor TIMOTHY HINTON ([id number]) on 07/08/2018 9:38:01 AM Referred By: NORMA Confirmed By:MARC GUNN MD 07/08/18 0938 Date Marc Gunn MD CC: Erwin Bae MD; Hortensia De Oliveira MD Signed NURSING PROG Observed: 07/11/2018 Status: COMPLETED Source: [place] 4:57 PM [facility] OTHER [place] REPOSITORY HNO ID: [id number] Author: Helga MonteroRn) JUVE Law Service: (none) Author Type: Registered Nurse Type: Nursing Progress Note Filed: 07/11/2018 4:58 PM Note Text: Dr Hackett states to have patient start plavix tomorrow 07/12/2018 CNDS Observed: 07/11/2018 Status: COMPLETED Source: [place] 4:53 PM [facility] OTHER [place] REPOSITORY HNO ID: [id number] Author: Junaid Hackett Service: Hospital Medicine Author [...] as well, neurologist recommended resuming Plavix alone, orthopedic podiatrist recommended CT enterography if bleeding recurred again [...] Medication List START taking these medications pantoprazole DR (PROTONIX) 40 mg Take 40 mg by [...] CONSULT PROG Observed: 07/11/2018 Status: COMPLETED Source: [place] 10:04 AM [facility] OTHER CAMPUS REPOSITORY O ID: [id number] Author: Tom Magallanes Service: Gastroenterology Author Type: [...] bleeding. ? ? Plan: -s/p capsule endoscopy Sunday, no obvious source detected. Presumed to be diverticular bleed -Hgb is going up. No overt bleeding. -consider CT enterography if had GIB in the future. -Discharge on PO Protonix once daily. -GI will sign off, call for any questions. Medication and Non-Pharmacologic VTE Prophylaxis/Anticoagulants 07/05/18329 vte pharmacologic prophylaxis contraindicated (tx,nv) 07/05/18329 pneumatic compression stockings (tx,nv) 07/05/18329 activity - mobilize patient (tx,nv) VTE Prophylaxis: VTE prophylaxis appropriate I have [...] July 11, 2018 TIME: 10:04 AM PAGER: [phone] GLUCOSE METER Collected: 07/11/2018 Status: F Source: [facility] 7:37 AM HEALTH SYSTEM REPOSITORY TYPE CODE TESTS RESULT OUT OF REFERENCE UNITS RANGE LAB GLUBL(LOINC 70-99 mg/dL ) High Glucose Meter 102 Result Comment: RN NOTIFIED Performed By: #### GLMET #### [facility] [address] [place] [address] MDRD GFR Collected: 07/11/2018 Status: F Source: [facility] 5:37 AM HEALTH SYSTEM REPOSITORY TYPE CODE TESTS RESULT OUT OF RANGE REFERENCE UNITS LAB GFRFN(LOINC >60mL/min/1.73m ) 2 eGFR >60 Result Comment: If the patient is , multiply the result by 1.210. Performed By: #### GFR #### [facility] [address] [place] [address] HEMOGRAM/DIFF Collected: 07/11/2018 Status: F Source: [facility] 5:37 AM HEALTH SYSTEM REPOSITORY TYPE CODE [...] LAB MONON(LOIN 0.30-0.82 thou/cmm C) Abs. High [facility] 0.86 LAB EOSN(LOINC 0.04-0.54 thou/cmm ) Abs. Eosin 0.34 LAB BASON(LOIN 0.01-0.08 thou/cmm C) Abs. Baso 0.04 Performed By: #### CBCD1 #### [facility] [address] [place] [address] COMPREHENSIVE PANEL Collected: 07/11/2018 Status: F Source: [facility] 5:37 AM HEALTH SYSTEM REPOSITORY TYPE CODE [...] Gap 12 Performed By: #### P14 #### [place] [address] LIPID PROFILE Collected: 07/11/2018 Status: F Source: [facility] 5:37 AM HEALTH SYSTEM REPOSITORY TYPE CODE [...] Triglyceride >400 Performed By: #### LIPD2 #### [place] [address] HGB A1C Collected: 07/11/2018 Status: F Source: [facility] 5:37 AM HEALTH SYSTEM REPOSITORY TYPE CODE TESTS RESULT OUT OF RANGE REFERENCE UNITS LAB A1C5(LOINC) 4.2-6.3 % Hgb A1c 5.1 Result Comment: Method is National Glycohemoglobin Standardization Program (NGSP) compliant. LAB ESAVG(LOINC) mg/dl Est. Avg Glucose 100 Performed By: #### HA1C #### [place] [address] HGB Collected: 2018 Status: F Source: [facility] 4:20 PM HEALTH SYSTEM REPOSITORY TYPE CODE TESTS RESULT OUT OF RANGE REFERENCE UNITS LAB HGBI(LOINC) 13.7-17.5 g/dL Low Hgb 8.4 Performed By: #### HGBI #### [facility] [address] [place] [id number] NURSING PROG Observed: 2018 Status: COMPLETED Source: [place] 3:33 PM [facility] REPOSITORY HNO ID: [id number] Author: Abdoulaye (Rn) JUVE Cook Service: Nursing Author Type: Registered Nurse Type: Nursing Progress Note Filed: 2018 3:35 PM Note Text: Nursing Progress Note Patient Name: Francisca Velasquez Patient Location: [place] [address] [address]* Daily Note:Called report to [phone], Spoke to JUVE Singh. Answered all questions to best of RN ability. No new information to report at this time. Will update pt's (at bedside) and transfer pt after 4pm Hgb check. No other information to report at this time This note was completed by: Abdoulaye Cook RN CONSULT PROG Observed: 2018 Status: COMPLETED Source: [place] 11:08 AM [facility] REPOSITORY HNO ID: [id number] Author: Tom Magallanes Service: Gastroenterology Author Type: [...] < 7 Medication and Non-Pharmacologic VTE Prophylaxis/Anticoagulants 07/05/18329 vte pharmacologic prophylaxis contraindicated (tx,oh) 07/05/18329 pneumatic compression stockings (tx,oh) 07/05/18329 activity - mobilize patient (tx,nv) VTE Prophylaxis: VTE prophylaxis appropriate I have [...] Velasquez DATE: 2018 TIME: 11:10 AM PAGER: [phone] HGB Collected: 2018 Status: F Source: [facility] 10:20 AM [facility] REPOSITORY TYPE CODE TESTS RESULT OUT OF RANGE REFERENCE UNITS LAB HGBI(LOINC) 13.7-17.5 g/dL Low Hgb 8.5 Performed By: #### HGBI #### [place] [address] CONSULT PROG Observed: 2018 Status: COMPLETED Source: [place] 8:14 AM [facility] REPOSITORY HNO ID: [id number] Author: Tom Magallanes Service: Gastroenterology Author Type: [...] FRCPC PROGRESS Observed: 2018 Status: COMPLETED Source: [place] 8:13 AM [facility] REPOSITORY HNO ID: [id number] Author: Junaid Hackett Service: Hospital Medicine Author [...] negative. ? 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 Leucocytosis reactive from #1 ? BPH Plan Cont PPI, Flomax, HANDH q12h, if drops consideration for Ct enterography. Medication and Non-Pharmacologic VTE Prophylaxis/Anticoagulants 07/05/18329 vte pharmacologic prophylaxis contraindicated (tx,oh) 07/05/18329 pneumatic compression stockings (tx,oh) 07/05/18329 activity - mobilize patient (tx,nv) VTE Prophylaxis: VTE prophylaxis appropriate Disposition: Home Plan of care discussed with: Patient SIGNATURE: Junaid Hackett MD PATIENT NAME: Francisca Velasquez DATE: 2018 PAGER/CONTACT #: [phone] HGB Collected: 2018 Status: F Source: [facility] 3:30 AM HEALTH SYSTEM REPOSITORY TYPE CODE TESTS RESULT OUT OF RANGE REFERENCE UNITS LAB HGBI(LOINC) 13.7-17.5 g/dL Low Hgb 8.1 Performed By: #### HGBI #### [facility] [address] [place] [address] HGB Collected: 07/09/2018 Status: F Source: [facility] 8:45 PM HEALTH SYSTEM REPOSITORY TYPE CODE TESTS RESULT OUT OF RANGE REFERENCE UNITS LAB HGBI(LOINC) 13.7-17.5 g/dL Low Hgb 7.9 Performed By: #### HGBI #### [facility] [address] [place] [address] HGB Collected: 07/09/2018 Status: F Source: [facility] 3:45 PM HEALTH SYSTEM REPOSITORY TYPE CODE TESTS RESULT OUT OF RANGE REFERENCE UNITS LAB HGBI(LOINC) 13.7-17.5 g/dL Low Hgb 8.6 Performed By: #### HGBI #### [facility] [address] [place] [address] CONSULT Observed: 07/09/2018 Status: COMPLETED Source: [place] 2:52 PM CLINIC OTHER CAMPUS REPOSITORY O ID: [id number] Author: Willard Torre Service: Neurology General Author [...] HLD, former smoker who was admitted to [facility] as a level III trauma after [...] 09, 2018 TIME: 2:53 PM PAGER/CONTACT #: [phone]END[facility] Willard Torre MD Agree with [...] goals of care,?medical plan for the day, forestry consultant recommendations, medical disposition and current medical [...] DATE: 07/09/18 TIME: 5:18 PM PAGER/CONTACT #: [phone] CONSULT PROG Observed: 07/09/2018 Status: COMPLETED Source: [place] 1:43 PM CLINIC OTHER CAMPUS REPOSITORY HNO ID: [id number] Author: Daniel Greenwood Service: Gastroenterology Author Type: [...] await capsule endoscopy results SIGNATURE: Daniel Greenwood APRN.COMPUTER ARTIST PATIENT NAME: Francisca Velasquez DATE: July 09, 2018 TIME: 3:07 PM PAGER: PROGRESS Observed: 07/09/2018 Status: COMPLETED Source: [place] 11:35 AM [facility] OTHER CAMPUS REPOSITORY O ID: [id number] Author: Caio Meza MD Service: Critical Care Author Type: Resident Type: Progress Notes Filed: 07/09/2018 11:41 AM Note Text: Attestation signed by Abdulaziz Cintron at 07/09/2018 4:24 PM [facility] STAFF PHYSICIAN NOTE OF PERSONAL INVOLVEMENT IN [...] of care, medical plan for the day, forestry consultant recommendations, medical disposition and current medical [...] 2018 Patient Name: Francisca Velasquez Patient Location: [place] [address] [address]* Admission Date: 07/05/2018 Length of Stay: 4 [...] 250 mL 4 g INTRAVENOUS PRN Jaz Katelynnyadarshini (Res) Vipin perflutren lipid microspheres 1.1 mg/mL [...] interval not displayed. COAG: Recent Labs 07/05/18 042 INR 1.01 BMP: Recent Labs 07/07/18 1550 07/06/185 07/05/18 033 GLUC 122* 96 115* NA 141 143 144 K 3.5 3.7 4.0 CHLOR 113* 114* 117* CO2 23 21 19* ANION 9 12 12 BUN 19* 24* 34* CREAT 1.01 1.06 1.08 CHEM: Recent Labs 07/07/18 1550 07/06/185 07/05/18 1600 07/05/18 0330 ALB -- -- [...] management Signed: Caio Meza MD, PGY-1 Pager: [phone] Date: July 09, 2018 Time: 11:35 AM Recommendations are not finalized until co-signed by Staff physician. HGB Collected: 07/09/2018 Status: F Source: [facility] 9:45 AM HEALTH SYSTEM REPOSITORY TYPE CODE TESTS RESULT OUT OF RANGE REFERENCE UNITS LAB HGBI(LOINC) 13.7-17.5 g/dL Low Hgb 7.9 Performed By: #### HGBI #### [address], [place] [address] HGB Collected: 07/09/2018 Status: F Source: [facility] 2:50 AM HEALTH SYSTEM REPOSITORY TYPE CODE TESTS RESULT OUT OF RANGE REFERENCE UNITS LAB HGBI(LOINC) 13.7-17.5 g/dL Low Hgb 8.0 Performed By: #### HGBI #### [facility] [address] [place], [place] [address] HGB Collected: 07/08/2018 Status: F Source: [facility] 9:00 PM HEALTH SYSTEM REPOSITORY TYPE CODE TESTS RESULT OUT OF RANGE REFERENCE UNITS LAB HGBI(LOINC) 13.7-17.5 g/dL Low Hgb 7.2 Performed By: #### HGBI #### [facility] [address] [place] [address] NURSING PROG Observed: 07/08/2018 Status: COMPLETED Source: [place] 7:08 PM [facility] REPOSITORY HNO ID: [id number] Author: Yuliet Rubio RN Service: Nursing Author Type: Registered Nurse Type: Nursing Progress Note Filed: 07/08/2018 7:11 PM Note Text: Mylicon 1.8ml given prior to ingestion of pill cam. #[id number]. Expiration 09-26-2019 NURSING PROG Observed: 07/08/2018 Status: COMPLETED Source: [place] 6:57 PM [facility] REPOSITORY HNO ID: [id number] Author: Yuliet Rubio RN Service: Nursing Author [...] NURSING PROG Observed: 07/08/2018 Status: COMPLETED Source: [place] 6:52 PM [facility] REPOSITORY HNO ID: [id number] Author: Yuliet (Rn) JUVE Rubio Service: Nursing Author Type: Registered [...] cell phones, computers, remote TV appliances, microwaves, MP3 players and digital cameras. Because the equipment [...] NURSING PROG Observed: 07/08/2018 Status: COMPLETED Source: [place] 6:50 PM [facility] REPOSITORY HNO ID: [id number] Author: Yuliet Hopson) JUVE Rubio Service: Nursing [...] SB Capsule Endoscope (Olympus/Given) without difficulty. Lot#: [id number] Date of expiration: 09-26-2019 POST-PROCEDURE Post-capsule instructions reviewed and written information was provided to patient. Staff will sweet pickle maker tomorrow SIGNATURE: Yuliet Rubio RN PATIENT NAME: Francisca Velasquez DATE: July 08, 2018 TIME: 6:50 PM CONTACT #: [phone] HGB Collected: 07/08/2018 Status: F Source: [facility] 3:40 PM HEALTH SYSTEM REPOSITORY TYPE CODE TESTS RESULT OUT OF RANGE REFERENCE UNITS LAB HGBI(LOINC) 13.7-17.5 g/dL Low alert Hgb 6.9 Performed By: #### HGBI #### [place] [address] PROGRESS Observed: 07/08/2018 Status: COMPLETED Source: [place] 1:24 PM CLINIC OTHER CAMPUS REPOSITORY O ID: [id number] Author: Caio Meza MD Service: Critical Care Author Type: Resident Type: Progress Notes Filed: 07/08/2018 1:30 PM Note Text: Attestation signed by Abdulaziz Cintron at 07/08/2018 1:48 PM [facility] STAFF PHYSICIAN NOTE OF PERSONAL INVOLVEMENT IN [...] 2018 Patient Name: Francisca Velasquez Patient Location: [id number]/[place] [address]* Admission Date: 07/05/2018 Length of Stay: 3 [...] 40 mg ORAL DAILY Edwar Dempsey (Res) Danay [START ON 07/09/2018] pantoprazole DR 40 mg tab(s) (PROTONIX) 40 mg ORAL DAILY (6 AM) Ke (Res) Danay ondansetron (PF) 4 mg injection (ZOFRAN) 4 [...] 20 mEq INTRAVENOUS PRN Jaz Linares (Res) iVpin magnesium sulfate in water 2 g in [...] Ke (Res) [facility] Labs: CBC: Recent Labs 07/08/18 0930 07/08/18 [...] management Signed: Caio Meza MD, PGY-1 Pager: [phone] Date: July 08, 2018 Time: 1:24 PM Recommendations are not finalized until co-signed by Staff physician. NURSING PROG Observed: 07/08/2018 Status: COMPLETED Source: [place] 10:55 AM [facility] REPOSITORY HNO ID: [id number] Author: Mary Grace MonteroRn) JUVE Gr Service: Nursing Author Type: Registered Nurse Type: Nursing Progress Note Filed: 07/08/2018 10:56 AM Note Text: Nursing Progress Note Patient Name: Francisca Velasquez Patient Location: [place] [address]* Daily Note:bedside colonostopy completed. See vitals from 1000 to current. Pt tolerated well. See attached sedation form. Pt now awake and answering questions but drowsy. Vitals stable. Will monitor This note was completed by: Mary Grace Gr RN OPERATIVE NO Observed: 07/08/2018 Status: COMPLETED Source: [place] 9:46 AM [facility] REPOSITORY HNO ID: [id number] Author: Tom Magallanes Service: Gastroenterology Author Type: Physician Type: Operative Report Filed: 07/08/2018 10:54 AM Note Text: OPERATIVE/PROCEDURE REPORT LOG ID: [id number] Surgery/Procedure Date: 07/08/2018 Incision/Procedure Start Time: Incision Close/Procedure End Time: Surgeon(s)/Proceduralist(s) and Cosmetology Instructor(s): Surgeon(s) and Role: * Tom Magallanes - [...] 08, 2018 TIME: 10:50 AM PAGER/CONTACT #: [phone] HGB Collected: 07/08/2018 Status: F Source: [facility] 9:30 AM HEALTH SYSTEM REPOSITORY TYPE CODE TESTS RESULT OUT OF RANGE REFERENCE UNITS LAB HGBI(LOINC) 13.7-17.5 g/dL Low Hgb 7.6 Performed By: #### HGBI #### [place] [address] CASE MGT INIT Observed: 07/08/2018 Status: COMPLETED Source: [facility] 9:06 AM CLINIC OTHER CAMPUS REPOSITORY HNO ID: [id number] Author: Dilip (Rn) JUVE Ibanez Service: Care Management Author Type: Registered Nurse Type: Care Mgt Initial Assessment Filed: 07/08/2018 9:16 AM Note Text: CARE MANAGEMENT: ASSESSMENT AND DISCHARGE PLAN SERVICE DATE: 07/08/2018 SERVICE TIME: 9:07 AM PRIMARY CARE PHYSICIAN: No primary care provider on file. Dr Erwin Bae- [facility] family 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 SIGNATURE: Dilip Ibanez RN PATIENT NAME: Francisca Velasquez DATE: July 08, 2018 TIME: 9:07 AM PAGER/CONTACT #: [phone] HGB Collected: 07/08/2018 Status: F Source: [facility] 4:20 AM HEALTH SYSTEM REPOSITORY TYPE CODE TESTS RESULT OUT OF RANGE REFERENCE UNITS LAB HGBI(LOINC) 13.7-17.5 g/dL Low alert Hgb 6.9 Performed By: #### HGBI #### [place] [address] HGB Collected: 07/08/2018 Status: F Source: [facility] 12:15 AM HEALTH SYSTEM REPOSITORY TYPE CODE TESTS RESULT OUT OF RANGE REFERENCE UNITS LAB HGBI(LOINC) 13.7-17.5 g/dL Low Hgb 7.2 Performed By: #### HGBI #### [place] [address] RBC PRODUCTS Collected: 07/07/2018 Status: F Source: [facility] 10:03 PM HEALTH SYSTEM REPOSITORY TYPE CODE TESTS RESULT OUT OF REFERENCE UNITS RANGE LAB UNIT1(LOINC ) Xmatch Unit 1 see below Result Comment: Compatible Performed By: #### RBCPS #### [facility] [address] [place] [address] HGB Collected: 07/07/2018 Status: F Source: [facility] 9:30 PM HEALTH SYSTEM REPOSITORY TYPE CODE TESTS RESULT OUT OF RANGE REFERENCE UNITS LAB HGBI(LOINC) 13.7-17.5 g/dL Low alert Hgb 6.5 Performed By: #### HGBI #### [facility] [address] [place] [address] HCT Collected: 07/07/2018 Status: F Source: [facility] 9:30 PM HEALTH SYSTEM REPOSITORY TYPE CODE TESTS RESULT OUT OF RANGE REFERENCE UNITS LAB HCTI(LOINC) 40.1-51.0 % Low alert Hct 18.8 Performed By: #### HCTI #### [facility] [address] [place] [address] HGB Collected: 07/07/2018 Status: F Source: [facility] 6:30 PM HEALTH SYSTEM REPOSITORY TYPE CODE TESTS RESULT OUT OF RANGE REFERENCE UNITS LAB HGBI(LOINC) 13.7-17.5 g/dL Low Hgb 7.2 Performed By: #### HGBI #### [facility] [address] [place] [address] RBC PRODUCTS Collected: 07/07/2018 Status: F Source: [facility] 6:03 PM HEALTH SYSTEM REPOSITORY TYPE CODE TESTS RESULT OUT OF REFERENCE UNITS RANGE LAB UNIT1(LOINC ) Xmatch Unit 1 see below Result Comment: Compatible Performed By: #### RBCPS #### [facility] [address] [place] [address] RBC PRODUCTS Collected: 07/07/2018 Status: F Source: [facility] 4:19 PM HEALTH SYSTEM REPOSITORY TYPE CODE TESTS RESULT OUT OF REFERENCE UNITS RANGE LAB UNIT1(LOINC ) Xmatch Unit 1 see below Result Comment: Compatible Performed By: #### RBCPS #### [facility] [address] [place] [address] HGB Collected: 07/07/2018 Status: F Source: [facility] 3:57 PM HEALTH SYSTEM REPOSITORY TYPE CODE TESTS RESULT OUT OF RANGE REFERENCE UNITS LAB HGBI(LOINC) 13.7-17.5 g/dL Low alert Hgb 6.0 Performed By: #### HGBI #### [facility] [address] [place], [place] [address] BASIC PANEL Collected: 07/07/2018 Status: F Source: [facility] 3:50 PM HEALTH SYSTEM REPOSITORY TYPE CODE [...] Gap 9 Performed By: #### P8 #### [facility] [address] [place], [place] [address] CONSULT PROG Observed: 07/07/2018 Status: COMPLETED Source: [facility] 3:23 PM CLINIC OTHER CAMPUS REPOSITORY HNO ID: [id number] Author: Tom Magallanes Service: Gastroenterology Author Type: [...] FRCPC PROGRESS Observed: 07/07/2018 Status: COMPLETED Source: [facility] 1:33 PM CLINIC OTHER CAMPUS REPOSITORY HNO ID: [id number] Author: Luis Felipe Burch Jr. Service: Critical Care Author Type: Physician Type: Progress Notes Filed: 07/07/2018 2:29 PM Note Text: Medical Intensive Care Progress Note July 07, 2018 Patient Name: Francisca Velasquez [id number] Admission Date: 07/05/2018 Length of Stay: 2 [...] 109/86 109/52 Pulse: 99 (!) 139 Resp: 17 Temp: 36.5 ?C (97.7 ?F) (!) [...] 4 g INTRAVENOUS PRN Jaz Priyadarshini (Res) Lew lactated ringers infusion 100 mL/hr INTRAVENOUS CONTINUOUS Jaz Priyadarshini (Res) Vipin Last Rate: 100 mL/hr at [...] ? Signed: Tyler Santana MD, PGY-1 Pager: [phone] Date: July 07, 2018 Time: 1:34 PM [facility] ([facility] STAFF PHYSICIAN NOTE OF PERSONAL INVOLVEMENT IN [...] PHERESED PLATELETS Collected: 07/07/2018 Status: F Source: [facility] 11:32 AM HEALTH SYSTEM REPOSITORY TYPE CODE TESTS RESULT OUT OF REFERENCE UNITS RANGE LAB PPHR(LOINC) Pheresed Plts Done unit 1 Performed By: #### PPHRS #### [place] [address] RBC PRODUCTS Collected: 07/07/2018 Status: F Source: [facility] 11:31 AM HEALTH SYSTEM REPOSITORY TYPE CODE TESTS RESULT OUT OF REFERENCE UNITS RANGE LAB UNIT1(LOINC ) Xmatch Unit 1 see below Result Comment: Compatible LAB UNIT2(LOINC) Xmatch Unit 2 see below Result Comment: Compatible Performed By: #### RBCPS #### [place] [address] HGB Collected: 07/07/2018 Status: F Source: [facility] 10:50 AM HEALTH SYSTEM REPOSITORY TYPE CODE TESTS RESULT OUT OF RANGE REFERENCE UNITS LAB HGBI(LOINC) 13.7-17.5 g/dL Low alert Hgb 5.9 Result Comment: Repeated AND verified Performed By: #### HGBI #### [place] [address] HGB Collected: 07/07/2018 Status: F Source: [facility] 3:00 AM HEALTH SYSTEM REPOSITORY TYPE CODE TESTS RESULT OUT OF RANGE REFERENCE UNITS LAB HGBI(LOINC) 13.7-17.5 g/dL Low Hgb 7.1 Performed By: #### HGBI #### [place] [address] HGB Collected: 07/06/2018 Status: F Source: [facility] 9:40 PM HEALTH SYSTEM REPOSITORY TYPE CODE TESTS RESULT OUT OF RANGE REFERENCE UNITS LAB HGBI(LOINC) 13.7-17.5 g/dL Low Hgb 7.5 Performed By: #### HGBI #### [place] [address] CONSULT PROG Observed: 07/06/2018 Status: COMPLETED Source: [place] 4:48 PM CLINIC OTHER CAMPUS REPOSITORY HNO ID: [id number] Author: Tom Magallanes Service: Gastroenterology Author Type: [...] FRCPC HEMOGRAM Collected: 07/06/2018 Status: F Source: [facility] 3:00 PM [facility] SYSTEM REPOSITORY TYPE CODE TESTS RESULT OUT [...] MPV 9.8 Performed By: #### CBC1 #### [facility] [address] [place] [address] ABDOMEN 1 VIEW Observed: 07/06/2018 Status: F Source: [facility] 1:45 PM HEALTH SYSTEM REPOSITORY Performed at [facility] APPROVED BY: Sanjeev Griffith MD EXAM [...] normal. PROGRESS Observed: 07/06/2018 Status: COMPLETED Source: [place] 1:17 PM CLINIC OTHER CAMPUS REPOSITORY HNO ID: [id number] Author: Luis Felipe Burch Jr. Service: Critical Care Author Type: Physician Type: Progress Notes Filed: 07/06/2018 9:36 PM Note Text: Medical Intensive Care Progress Note July 06, 2018 Patient Name: Francisca Velasquez [id number] Admission Date: 07/05/2018 Length of Stay: 1 [...] ringers infusion 100 mL/hr INTRAVENOUS CONTINUOUS Jaz Milagros (Res) Vipin Last Rate: 100 mL/hr at [...] ? Signed: Caio Meza MD, PGY-1 Pager: [phone] Date: July 06, 2018 Time: 1:18 PM Recommendations are not finalized until co-signed by Staff physician. [facility] ([facility] STAFF PHYSICIAN NOTE OF PERSONAL INVOLVEMENT IN [...] PM CONSULT Observed: 07/06/2018 Status: COMPLETED Source: [place] 12:40 PM [facility] OTHER CAMPUS REPOSITORY [facility] ID: [id number] Author: Nayely Plascencia Service: Urology Author Type: [...] Outpatient follow up with his Urologist in [place] - Call if he develops R flank pain, fevers > 38.5, or concern for sepsis - Will sign off, call with questions HISTORY OF PRESENT ILLNESS: The patient is a 62 year old male with a PMHx of ulcerative colitis, prior hx of nephrolithiasis, known to Urology in [place]. Has had stones treated with ESWL 3-4 [...] (thou/cmm) Date Value 07/05/2018 246 Urinalysis: Specific [place], Ur Date Value Ref Range Status 07/05/2018 [...] for stone management with his Urologist in [place] - No further intervention, call if patient becomes febrile > 38.5, hypotensive (<90), or concern for sepsis from stone - D/w Dr. Plascencia Thank you for allowing me to participate in the care of your patient SIGNATURE: Julian Saini MD PATIENT NAME: Francisca Velasquez DATE: 07/06/2018 TIME: 12:40 PM PAGER: [phone] Attending Note I evaluated the patient and personally participated in the monson components. I agree with the resident's findings and plan as documented and have discussed the case and management of the patient's care with the resident. Signature: Nayely Plascencia DO, MBA Date: 07/07/2018 Time: 10:37 AM HGB Collected: 07/06/2018 Status: F Source: [facility] 10:00 AM HEALTH SYSTEM REPOSITORY TYPE CODE TESTS RESULT OUT OF RANGE REFERENCE UNITS LAB HGBI(LOINC) 13.7-17.5 g/dL Low Hgb 8.3 Performed By: #### HGBI #### [place] [address] HGB Collected: 07/06/2018 Status: F Source: [facility] 3:25 AM HEALTH SYSTEM REPOSITORY TYPE CODE TESTS RESULT OUT OF RANGE REFERENCE UNITS LAB HGBI(LOINC) 13.7-17.5 g/dL Low Hgb 8.9 Performed By: #### HGBI #### [place] [address] HCT Collected: 07/06/2018 Status: F Source: [facility] 3:25 AM HEALTH SYSTEM REPOSITORY TYPE CODE TESTS RESULT OUT OF RANGE REFERENCE UNITS LAB HCTI(LOINC) 40.1-51.0 % Low Hct 26.4 Performed By: #### HCTI #### [place] [address] BASIC PANEL Collected: 07/06/2018 Status: F Source: [facility] 3:25 AM HEALTH SYSTEM REPOSITORY TYPE CODE [...] Gap 12 Performed By: #### P8 #### [facility] [address] [place] [id number] ACUTE GASTRIC BLOOD Observed: 07/05/2018 Status: F Source: [facility] STUDY 11:39 PM HEALTH SYSTEM REPOSITORY Performed at [facility] APPROVED BY: RUSLAN OJEDA MD Technique: [...] bleeding. PROGRESS Observed: 07/05/2018 Status: COMPLETED Source: [facility] 11:27 PM CLINIC OTHER CAMPUS REPOSITORY HNO ID: [id number] Author: Bon Hunter (Rt) Service: Radiology Author Type: Contact Lens Cutter Type: Progress Notes Filed: 07/05/2018 11:28 PM [...] No IV SITE: Inpatient - refer to [facility] documentation POST EXAM PIV STATUS: Left [...] RBC PRODUCTS Collected: 07/05/2018 Status: F Source: [facility] 10:30 PM HEALTH SYSTEM REPOSITORY TYPE CODE TESTS RESULT OUT OF REFERENCE UNITS RANGE LAB UNIT1(LOINC ) Xmatch Unit 1 see below Result Comment: Compatible LAB UNIT2(LOINC) Xmatch Unit 2 see below Result Comment: Compatible Performed By: #### RBCPS #### [facility] [address] [place] [address] HGB Collected: 07/05/2018 Status: F [facility] REPOSITORY TYPE CODE TESTS RESULT OUT OF RANGE REFERENCE UNITS LAB HGBI(LOINC) 13.7-17.5 g/dL Low alert Hgb 7.0 Performed By: #### HGBI #### [place] [address] [address] ABDOMEN AND PELVIS Observed: 07/05/2018 Status: F Source: [facility] WITH CONTRAST 9:43 PM HEALTH SYSTEM REPOSITORY Performed at [facility] APPROVED BY: HAWA THORNTON MD EXAMINATION: [...] ABO/RH CONFIRMATION Collected: 07/05/2018 Status: F Source: [facility] 6:45 PM HEALTH SYSTEM REPOSITORY TYPE CODE TESTS RESULT OUT OF REFERENCE UNITS RANGE LAB ABO(LOINC) A ABO Group LAB METHODS STUDY ANALYST([facility]) RH Type Negative Performed By: #### ABOCK #### [place] [address] EKG (AK,AV,EU,FV,HL,JERMAIN,MM,SP) Observed: Status: F Source: [facility] 07/05/2018 5:49 PM CLINIC OTHER CAMPUS REPOSITORY NAME : FRANCISCA VELASQUEZ PID : [id number] : 1955 Gender : Male Race : ORD : [id number] Procedure Date : Jul 05 2018 17:49 [...] ms QTC Calculation(Bezet) : 438 ms P [place] : 53 degrees R [place] : -2 degrees T [place] : 51 degrees Test Reason : Syncope Location : 48 : [place] [address] Overread By : MD Hernandez Vinayak A. Editted By : MD Hernandez Vinayak A. Referred By : RIC MELGAR Acquired by : Mary BOYER RBC PRODUCTS Collected: 07/05/2018 Status: F Source: [facility] 5:40 PM HEALTH SYSTEM REPOSITORY TYPE CODE TESTS RESULT OUT OF REFERENCE UNITS RANGE LAB UNIT1(LOINC ) Xmatch Unit 1 see below Result Comment: Compatible Performed By: #### RBCPS #### [place] [address] TYPE AND SCREEN Collected: 07/05/2018 Status: F Source: [facility] 5:40 PM HEALTH SYSTEM REPOSITORY TYPE CODE TESTS RESULT OUT OF REFERENCE UNITS RANGE LAB ABO(LOINC) A ABO Group LAB METHODS STUDY ANALYST(LOINC ) RH Type Negative LAB ABSCR(LOIN C) Antibody NEGATIVE Screen LAB BBCMT(LOIN C) Comment See Below Result Comment: Screen &/or Xmatch expires in 3 days at 12 midnight. Redraw patient at that time. Performed By: #### T&S #### [place] [address] HGB Collected: 07/05/2018 Status: F Source: [facility] 4:00 HEALTH SYSTEM REPOSITORY TYPE CODE TESTS RESULT OUT OF RANGE REFERENCE UNITS LAB HGBI(LOINC) 13.7-17.5 g/dL Low Hgb 7.5 Performed By: #### HGBI #### [place] [address] CRP Collected: 07/05/2018 Status: F Source: [facility] 4:00 HEALTH SYSTEM REPOSITORY TYPE CODE TESTS RESULT OUT OF RANGE REFERENCE UNITS LAB CRP3(LOINC) 0.00-0.30 mg/dL High CRP 0.83 Performed By: #### CRP3 #### [place] [address] LACTIC ACID Collected: 07/05/2018 Status: F Source: [facility] 4:00 HEALTH SYSTEM REPOSITORY TYPE CODE TESTS RESULT OUT OF REFERENCE UNITS RANGE LAB LAC(LOINC) 0.4-2.0 mEq/L Lactic Acid 1.3 Performed By: #### LAC #### [place] [address] HAPTOGLOBIN Collected: 07/05/2018 Status: F Source: [facility] 4:00 PM HEALTH SYSTEM REPOSITORY TYPE CODE TESTS RESULT OUT OF REFERENCE UNITS RANGE LAB HAP(LOINC) 30.0-200.0 mg/dL Haptoglobin 55.1 Performed By: #### HAP #### [facility] [address] [place] [address] LD,TOTAL BLOOD Collected: 07/05/2018 Status: F Source: [facility] 4:00 PM HEALTH SYSTEM REPOSITORY TYPE CODE TESTS RESULT OUT OF RANGE REFERENCE UNITS LAB LDH(LOINC) 84-246 U/L LD,Total 140 Blood Performed By: #### LDH #### [facility] [address] [place] [address] HEPATIC PANEL Collected: 07/05/2018 Status: F Source: [facility] 4:00 HEALTH SYSTEM REPOSITORY TYPE CODE TESTS RESULT [...] Bilirubin 0.17 Performed By: #### HEPAP #### [facility] [address] [place] [address] OPERATIVE NO Observed: 07/05/2018 Status: COMPLETED Source: [facility] 2:49 PM CLINIC OTHER CAMPUS REPOSITORY O ID: [id number] Author: Tom Magallanes Service: Gastroenterology Author Type: Physician Type: Operative Report Filed: 07/05/2018 3:26 PM Note Text: OPERATIVE/PROCEDURE REPORT LOG ID: [id number] Surgery/Procedure Date: 07/05/2018 Incision/Procedure Start Time: 3:11 PM Incision Close/Procedure End Time: 3:17 PM Surgeon(s)/Proceduralist(s) and Cosmetology Instructor(s): Surgeon(s) and Role: * Tom Magallanes - [...] 05, 2018 TIME: 3:22 PM PAGER/CONTACT #: [phone] HISTORY PHYSICAL Observed: 07/05/2018 Status: COMPLETED Source: [facility] 1:55 PM CLINIC OTHER CAMPUS REPOSITORY O ID: [id number] Author: Diego Fowler Service: Trauma Author Type: Physician Type: HANDP Filed: 07/06/2018 11:17 AM Note Text: TRAUMA HANDP [facility] ARRIVAL DATE: 07/05/2018 ARRIVAL TIME: 0319 CATEGORY: Level 3 INJURY DATE: 07/05/2018 INJURY [...] compressions on his. EMS took him to [facility] where initial workup was completed. Per [...] Phos Recent Labs 07/05/18 0900 07/05/18 0420 07/05/18329 WBC -- -- 17.10* HB 9.3* -- [...] VTE Prophylaxis/Anticoagulants 07/05/18329 vte pharmacologic prophylaxis contraindicated ([place], [place]) 07/05/18329 pneumatic compression stockings ([place], [place]) 07/05/18329 activity - mobilize patient ([place], [place]) TREATMENT/EVALUATION PLANS: 62-year-old male with history [...] Trauma Service Pager: For questions or concerns Sun-Sun 6a-5p please page [phone]. After 5pm and on Weekends and Holidays, please page [phone] if in ICU or [phone] if on RNF. SIGNATURE: Abdoulaye Sheriff PA-C PATIENT NAME: Francisca Velasquez DATE: July 05, 2018 TIME: 1:56 PM PAGER/CONTACT #: [phone] CONSULT Observed: 07/05/2018 Status: COMPLETED Source: [facility] 12:10 PM CLINIC OTHER CAMPUS REPOSITORY HNO ID: [id number] Author: Tom Magallanes Service: Gastroenterology Author Type: Physician Type: Consults Filed: 07/05/2018 3:21 PM Note Text: HPI: Francisca Velasquez is a 62 year old male who presents for GI bleed with syncope. This pt was seen in [place] ED and transferred to [facility]. He started having melena stool and [...] MPH FRCPC Observed: 07/05/2018 Status: F Source: [facility] CULT URINE 11:20 AM HEALTH SYSTEM REPOSITORY Test performed at [facility] No growth Performed By: #### C_URI #### [facility] [address] [place] [id number] PLAN OF CARE Observed: 07/05/2018 Status: COMPLETED Source: [facility] 9:52 AM CLINIC OTHER CAMPUS REPOSITORY HNO ID: [id number] Author: Shena Maradiaga (Pharmacist) Service: Pharmacy Author Type: Pharmacist Type: Plan of Care Filed: 07/05/2018 9:56 AM Note Text: MEDICATION HISTORY AND MEDICATION RECONCILIATION Patient Name:Nikolai Velasquez : 1955 Source of history:Pharmacy records: [facility] [place] ([facility] [employer] data Medication Nonadherence Identified: No barriers noted The above information represents the best possible medication history: Yes Reconciliation completed? Yes All PRODUCT MANAGEMENT ANALYST medications addressed by LIP Additional comments: Please note the following changes to the initial PRODUCT MANAGEMENT ANALYST medication list: -Added aspirin (as noted in the HANDP) -Added clopidogrel -Added atorvastatin -Added tamsulosin -Added magnesium oxide See individual medications for additional notes/last fill dates. Allergies: ALLERGIES Allergen Reactions - Penicillin Anaphylaxis Preferred Pharmacy: [facility] [place] ([phone]) Current PRODUCT MANAGEMENT ANALYST Medications: Prior to Admission medications as of [...] by mouth daily with dinner. Yes SHENA MARADIAGA PHARMACIST July 05, 2018 9:52 AM URINALYSIS ROUTINE Collected: 07/05/2018 Status: F Source: [facility] 9:40 AM HEALTH SYSTEM REPOSITORY TYPE CODE [...] Urine NEGATIVE LAB SPG(LOINC) 1.005-1.030 Specific 1.026 [place], Ur LAB PHUR(LOINC 5.0-8.0 ) pH,Urine 5.0 [...] Cast 1.9 Performed By: #### URIN2 #### [place] [address] HGB Collected: 07/05/2018 Status: F Source: [facility] 9:00 AM HEALTH SYSTEM REPOSITORY TYPE CODE TESTS RESULT OUT OF RANGE REFERENCE UNITS LAB HGBI(LOINC) 13.7-17.5 g/dL Low Hgb 9.3 Performed By: #### HGBI #### [place] [address] HGB A1C Collected: 07/05/2018 Status: F Source: [facility] 9:00 AM HEALTH SYSTEM REPOSITORY TYPE CODE TESTS RESULT OUT OF RANGE REFERENCE UNITS LAB A1C5(LOINC) 4.2-6.3 % Hgb A1c 4.6 Result Comment: Method is National Glycohemoglobin Standardization Program (NGSP) compliant. LAB ESAVG(LOINC) mg/dl Est. Avg Glucose 85 Performed By: #### HA1C #### [facility] [address] [place], [place] [address] VITAMIN B12 Collected: 07/05/2018 Status: F Source: [facility] 9:00 AM HEALTH SYSTEM REPOSITORY TYPE CODE TESTS RESULT OUT OF REFERENCE UNITS RANGE LAB B12(LOINC) 193-986 pg/mL Vitamin B12 202 Performed By: #### B12 #### [facility] [address] [place], [place] [address] PROGRESS Observed: 07/05/2018 Status: COMPLETED Source: [facility] 8:20 AM CLINIC OTHER CAMPUS REPOSITORY HNO ID: [id number] Author: Luis Felipe Burch Jr. Service: Critical Care Author Type: Physician Type: Progress Notes Filed: 07/05/2018 7:18 PM Note Text: Medical Intensive Care Progress Note July 05, 2018 Patient Name: Francisca Velasquez Patient Location: [place] [address] [address]* Admission Date: 07/05/2018 Length of Stay: 0 [...] NSAIDs use. Presented to the ED from [facility] after having 4 bloody BM and dizziness [...] 133/67 Pulse: 100 94 97 104 Resp: 16 Temp: 36.6 ?C (97.9 ?F) 36.7 ?C [...] oral liquid 80-120 mEq ORAL/FEEDING TUBE PRN Ajz Priyadarshini (Res) Vipin potassium chloride iv piggyback [...] (PROTONIX) 40 mg INTRAVENOUS q 12 H Jaz Linares (Res) Lew 40 mg at 07/05/18 0340 Followed by [START ON 07/08/2018] pantoprazole 40 mg injection (PROTONIX) 40 mg INTRAVENOUS DAILY (6 AM) Jaz Linares (Res) Vipin lactated ringers infusion 100 mL/hr INTRAVENOUS CONTINUOUS Jaz Linares (Res) Vipin Last Rate: 100 mL/hr at 07/05/18 0736 100 mL/hr at 07/05/18 0736 Labs: CBC: Recent Labs 07/05/18 033 WBC 17.10* HB 10.6* HCT 33.0* PLT [...] 31 ml Serum creatinine: 1.08 mg/dL 07/05/18 033 Estimated creatinine clearance: 76.5 mL/min Subjective No [...] management. Signed: Caio Meza MD, PGY-1 Pager: [phone] Date: July 05, 2018 Time: 8:20 AM Recommendations are not finalized until co-signed by Staff physician. [facility] ([facility] STAFF PHYSICIAN NOTE OF PERSONAL INVOLVEMENT IN [...] if bleeding stops and stable over weekend. Consider bleeding scan if recurrent BRBPR requiring [...] EMERGENCY DEPARTMENT Observed: 07/05/2018 Status: F Source: [place] SUMMARY 6:06 AM [facility] REPOSITORY [facility] Medical Records Department [address] [place] [address] Emergency Department Summary 07/04/18 2241 MR#: [id number] Acct: [id number] Name: FRANCISCA VELASQUEZ Rep #: [id number] : 1955 62 From: Hortensia De Oliveira [...] an acute ischemic infarction. Electronically Signed: Parveen NorwoodonDO at 23:43 EST Tel [phone], Service support , Cervical Spine CT 07/04/18 [...] patient's initial evaluation. Patient was discussed with [place] general Dr. Melgar for transfer to the ICU at [facility] for emergent intervention of symptomatic lower GI bleed with hemodynamic instability. Patient was awake and alert with no focal neuro deficits during his ED course. Treatment Plan: [] Disposition: [] Impression: Lower GI bleed, syncopal episode, hemodynamic instability, superficial forehead lacerations This note was generated with [employer]iger[employer] dictation software. It may contain incorrect words, [...] your Primary Care Provider. Call [facility] ([phone]) or report to the closest Emergency Room. Call 911 if necessary. 07/05/18 0606 <Electronically signed by Hortensia De Oliveira MD> Date Hortensia De Oliveira MD Cosigner Signature (If Indicated): Date CC: Erwin Bae MD PROTIME Collected: 07/05/2018 Status: F Source: [facility] 4:20 AM HEALTH SYSTEM REPOSITORY TYPE CODE TESTS RESULT OUT OF REFERENCE UNITS RANGE LAB PTI(LOINC) 9.7-13.0 sec Prothrombin Time 10.5 LAB INR(LOINC) 0.90-1.30 INR 1.01 Result Comment: Note: Reference Range Change Vitamin K Antagonist (VKA) Therapeutic Range: INR 2 to 3 (Target INR of 2.5) Note: For patients treated with VKA drugs, such as warfarin, the [place] [employer] 2012 Guideline recommends [...] to 3.5 target INR of 3). Long RIDDLE, et al. Chest 2012; 141:7S-47S Carter PACE et al. [facility] 2017; 70: 252-289 Performed By: #### PT #### [facility] [address] [place] [address] HISTORY PHYSICAL Observed: 07/05/2018 Status: COMPLETED Source: [place] 3:47 AM CLINIC OTHER CAMPUS REPOSITORY HNO ID: [id number] Author: Ric Melgar Service: Critical Care Author Type: Physician Type: HANDP Filed: 07/05/2018 3:57 AM Note Text: [facility] ([facility] STAFF PHYSICIAN NOTE OF PERSONAL INVOLVEMENT IN [...] SIGNATURE: Ric Melgar MD [facility] PAGER: [phone] DATE of SERVICE: July 05, 2018 TIME of SERVICE: 3:57 AM HEMOGRAM Collected: 07/05/2018 Status: F Source: [facility] 3:30 AM HEALTH SYSTEM REPOSITORY TYPE CODE [...] MPV 9.7 Performed By: #### CBC1 #### [place] [address] BASIC PANEL Collected: 07/05/2018 Status: F Source: [facility] 3:30 AM HEALTH SYSTEM REPOSITORY TYPE CODE [...] Gap 12 Performed By: #### P8 #### [facility] [address] [place] [address] MAGNESIUM BLOOD Collected: 07/05/2018 Status: F Source: [facility] 3:30 AM HEALTH SYSTEM REPOSITORY TYPE CODE TESTS RESULT OUT OF REFERENCE UNITS RANGE LAB MAG(LOINC) 1.6-2.6 mg/dL Magnesium Blood 2.0 Performed By: #### MAG #### [place] [address] PHOSPHORUS BLOOD Collected: 07/05/2018 Status: F Source: [facility] 3:30 AM HEALTH SYSTEM REPOSITORY TYPE CODE TESTS RESULT OUT OF REFERENCE UNITS RANGE LAB PHOS(LOINC 2.5-4.9 mg/dL ) Low Phosphorus Blood 2.2 Performed By: #### PHOS #### [place] [address] LACTIC ACID Collected: 07/05/2018 Status: F Source: [facility] 3:30 AM HEALTH SYSTEM REPOSITORY TYPE CODE TESTS RESULT OUT OF REFERENCE UNITS RANGE LAB LAC(LOINC) 0.4-2.0 mEq/L High alert Lactic Acid 2.1 Performed By: #### LAC #### [place] [address] Observed: 07/05/2018 Status: F Source: [facility] MRSA SCREEN 3:30 AM HEALTH SYSTEM REPOSITORY Test performed at [facility] No MRSA detected. Performed By: #### MRSA #### [place] [address] HISTORY PHYSICAL Observed: 07/05/2018 Status: COMPLETED Source: [place] 3:09 AM CLINIC OTHER CAMPUS REPOSITORY HNO ID: [id number] Author: Elias Sanabria MD Service: Critical Care [...] the ED. ER/ hospital course: Presented From [facility] after he was brought there by EMS [...] in the 24 hours ending 07/05/18 0309 INDUCTION COORDINATION ENGINEER: Alert and oriented Awake, oriented, Follows commands [...] for input(s): VPH, VPC2, VPO2C, RESPHCO3, BASEX, C2DSRNMT, PH, PCO2, RESPHCO3, BASEX, [id number] in the last 168 hours. Invalid input(s): [...] 05, 2018 TIME: 3:09 AM PAGER/CONTACT #: [phone] SURGICAL TISSUE EXAM Observed: 07/05/2018 Status: F Source: [facility] 12:00 AM HEALTH SYSTEM REPOSITORY Test performed at [place] [address] NAME: FRANCISCA VELASQUEZ REQUESTING: RIC MELGAR MD [...] of 1 Performed By: #### SURG #### [place] [address] CBC W/DIFF, AUTOMATED Collected: 07/04/2018 Status: F Source: [place] 11:07 PM [facility] REPOSITORY TYPE CODE TESTS RESULT OUT OF [...] Lymph 1.99 Performed By: #### L100.0100 #### [facility] [address] [place], [address] COMPREHENSIVE METABOLIC Collected: 07/04/2018 Status: F Source: [facility] 11:07 PM [facility] REPOSITORY TYPE CODE TESTS RESULT OUT OF [...] GAP Performed By: #### L500.4050, L501.4010 #### [facility] [address] [facility] [place], [place], [address] TROPONIN-I Collected: 07/04/2018 Status: F Source: [place] 11:07 [facility] REPOSITORY TYPE CODE TESTS RESULT OUT OF RANGE REFERENCE UNITS LAB L501.4010 <0.045 ng/mL Normal < 0.015 TROPONIN-I Result Comment: TROPONIN-I EXPECTED VALUES <0.045 Negative 0.045 - 0.590 Consistent with Cardiac Damage > OR = 0.600 Critical Value Not every elevated troponin is indicative of KS. These values should be used with clinical judgement in examining the patient's clinical picture for diagnosis. To establish a diagnosis of KS versus myocardial injury, there must be a demonstrated rise and/or fall in the troponin values, in addition to ischemic symptoms, EKG changes, new regional wall motion abnormality, and/or angiographical evidence. PLEASE NOTE: REFERENCE RANGES EDITED 17 Performed By: #### L500.4050, L501.4010 #### [facility] [address] [place], [place], [address] LACTIC ACID Collected: 07/04/2018 Status: F Source: [place] 11:07 [facility] REPOSITORY Order Comment: Yes/No query for Sepsis Lactate Rule Y TYPE CODE TESTS RESULT OUT OF RANGE REFERENCE UNITS LAB L503.6005 0.4-2.0 mmol/L Normal LACTIC ACID 1.8 Performed By: #### L503.6005 #### [facility] [address] [place], [address] TYPE AND SCREEN Collected: 07/04/2018 Status: F Source: [place] 11:07 PM [facility] REPOSITORY Order Comment: CMV NEG? N Number [...] NEGATIVE Screen Performed By: #### B101.7450 #### [facility] [address] [place], [address] LRBC Collected: 07/04/2018 Status: F Source: [place] 11:07 PM [facility] REPOSITORY TYPE CODE TESTS RESULT OUT OF REFERENCE UNITS RANGE LAB U100.0200 [id number] TRANSFUSED PRODUCT: Leuko-Reduced Red Blood Cells COUNT: 1 Performed By: #### U100.0200 #### [facility] - refer to report for specific site RC Collected: 07/04/2018 Status: F Source: [place] 11:07 PM [facility] REPOSITORY TYPE CODE TESTS RESULT OUT OF REFERENCE UNITS RANGE LAB U100.0000 [id number] TRANSFUSED PRODUCT: T AND S with Crossmatch, Red Cells COUNT: 1 Performed By: #### U100.0000 #### Non-[facility] - refer to report for specific site SPINE CERVICAL Observed: 07/04/2018 Status: F Source: [place] WITHOUT CONTRAS 10:41 PM [facility] REPOSITORY [facility] Imaging Services [address] [place] [address] Spine Cervical without Contras MR#: [id number] Acct: [id number] Name: FRANCISCA VELASQUEZ Rep #: [id number] : 1955 M 62 From: Parveen [place] DO PCP: Catalino ELIZABETH,Erwin Status: REG ER Study: Spine Cervical without Contras Date of Exam: 07/04/18 Exam# [id number] Ordering Dr: Hortensia De Oliveira MD STUDY: [...] Parveen [place] DO at 23:42 EST Tel [phone], Service support , CC: Erwin Bae MD; Hortensia De Oliveira MD Recreational Sports Director: Signed BRAIN/HEAD WITHOUT Observed: 07/04/2018 Status: F Source: [place] CONTRAST 10:41 PM [facility] REPOSITORY [facility] Imaging Services [address] [place] [address] Brain/Head without Contrast MR#: [id number] Acct: [id number] Name: FRANCISCA VELASQUEZ Rep #: [id number] : 1955 M 62 From: Parveen [place] DO PCP: Catalino ELIZABETH,Erwin Status: REG ER Study: Brain/Head without Contrast Date of Exam: 07/04/18 Exam# [id number] Ordering Dr: Hortensia De Oliveira MD STUDY: [...] Parveen [place] DO at 23:43 EST Tel [phone], Service support , CC: Erwin Bae MD; Hortensia De Oliveira MD Recreational Sports Director: Signed PROTHROMBIN TIME W/INR Collected: 07/04/2018 Status: F Source: [place] 10:32 PM [facility] REPOSITORY TYPE CODE TESTS RESULT OUT OF RANGE REFERENCE UNITS LAB L300.4150 11.7-14.9 SECONDS Normal PROTIME 14.7 LAB L300.4200 Normal INR 1.2 Performed By: #### L300.3900, L300.4310 #### [facility] [address] [place], [address] PARTIAL THROMBOPLAST Collected: 07/04/2018 Status: F Source: [place] TIME 10:32 PM [facility] REPOSITORY TYPE CODE TESTS RESULT OUT OF REFERENCE UNITS RANGE LAB L300.4310 24.1-36.2 Seconds Low PTT 23.1 Performed By: #### L300.3900, L300.4310 #### [facility] [address] [place], [address] HOSP Observed: 07/04/2018 Status: COMPLETED Source: [place] 12:00 AM [facility] REPOSITORY Patient:Francisca Velasquez MRN: <[id number]> Height:5' 10.984(1.803 m) Weight:204 lb 12.9 oz [...] 4:18 AM Attested Attestation signed by Ric Mlegar at 07/06/2018 2:51 AM Personally examined patient [...] the ED. ER/ hospital course: Presented From [facility] after he was brought there by EMS [...] in the 24 hours ending 07/05/18 0309 INDUCTION COORDINATION ENGINEER: Alert and oriented Awake, oriented, Follows commands [...] for input(s): VPH, VPC2, VPO2C, RESPHCO3, BASEX, X1SGBPBQ, PH, PCO2, RESPHCO3, BASEX, C0OQKKMA in the last 168 hours. Invalid input(s): [...] 2018 TIME: 3:09 AM PAGER/CONTACT #: [phone] Ric Melgar MD 07/05/2018 3:57 AM Signed [facility] STAFF PHYSICIAN NOTE OF PERSONAL INVOLVEMENT IN [...] SIGNATURE: Ric Melgar MD [facility] PAGER: [phone] DATE of SERVICE: July 05, 2018 TIME of SERVICE: 3:57 AM Luis Felipe Burch Jr, MD 07/05/2018 7:18 PM Signed Medical Intensive Care Progress Note July 05, 2018 Patient Name: Francisca Velasquez [facility] [id number] Admission Date: 07/05/2018 Length of Stay: 0 [...] NSAIDs use. Presented to the ED from [facility] after having 4 bloody BM and dizziness [...] (PROTONIX) 40 mg INTRAVENOUS q 12 H Jaz Linares (Res) Lew 40 mg at 07/05/18 0340 Followed by [START ON 07/08/2018] pantoprazole 40 mg injection (PROTONIX) 40 mg INTRAVENOUS DAILY (6 AM) Jaz Linares (Res) Vipin lactated ringers infusion 100 mL/hr INTRAVENOUS CONTINUOUS Jaz Linares (Res) Vipin Last Rate: 100 mL/hr at 07/05/18 0736 100 mL/hr at 07/05/18 0736 Labs: CBC: Recent Labs 07/05/18 033 WBC 17.10* HB 10.6* HCT 33.0* PLT [...] 31 ml Serum creatinine: 1.08 mg/dL 07/05/18 033 Estimated creatinine clearance: 76.5 mL/min Subjective No [...] management. Signed: Caio Meza MD, PGY-1 Pager: [phone] Date: July 05, 2018 Time: 8:20 AM Recommendations are not finalized until co-signed by Staff physician. [facility] ([facility] STAFF PHYSICIAN NOTE OF PERSONAL INVOLVEMENT IN [...] if bleeding stops and stable over weekend. Consider bleeding scan if recurrent BRBPR requiring [...] TIME of SERVICE: 7:03 PM Previous Version LISETTE WASHINGTON 07/05/2018 9:56 AM Signed MEDICATION HISTORY AND MEDICATION RECONCILIATION Patient Name:Nikolai Velasquez : 1955 Source of history:Pharmacy records: [facility] data Medication Nonadherence Identified: No barriers noted The above information represents the best possible medication history: Yes Reconciliation completed? Yes All PRODUCT MANAGEMENT ANALYST medications addressed by LIP Additional comments: Please note the following changes to the initial PRODUCT MANAGEMENT ANALYST medication list: -Added aspirin (as noted in the HANDP) -Added clopidogrel -Added atorvastatin -Added tamsulosin -Added magnesium oxide See individual medications for additional notes/last fill dates. Allergies: ALLERGIES Allergen Reactions - Penicillin Anaphylaxis Preferred Pharmacy: [facility] [place] ([phone]) Current PRODUCT MANAGEMENT ANALYST Medications: Prior to Admission medications as of [...] mg by mouth daily with dinner. Yes LISETTE WASHINGTON July 05, 2018 9:52 AM Tom Magallanes MD MPH [facility] 07/05/2018 3:21 PM Addendum HPI: Francisca Velasquez is a 62 year old male who presents for GI bleed with syncope. This pt was seen in [place] ED and transferred to [facility]. He started having melena stool and [...] MD 07/06/2018 11:17 AM Signed TRAUMA HANDP [facility] ARRIVAL DATE: 07/05/2018 ARRIVAL TIME: 0319 CATEGORY: Level 3 INJURY DATE: 07/05/2018 INJURY [...] compressions on his. EMS took him to [facility] where initial workup was completed. Per [...] Phos Recent Labs 07/05/18 0900 07/05/18 0420 07/05/18329 WBC -- -- 17.10* HB 9.3* -- [...] VTE Prophylaxis/Anticoagulants 07/05/18329 vte pharmacologic prophylaxis contraindicated (tx,nv) 07/05/18329 pneumatic compression stockings ([place], [place]) 07/05/18329 activity - mobilize patient ([place]) TREATMENT/EVALUATION PLANS: 62-year-old male with history [...] questions or concerns Mon-Fri 6a-5p please page [phone]. After 5pm and on Weekends and Holidays, please page [phone] if in ICU or [phone] if on RNF. SIGNATURE: Abdoulaye Sheriff PA-C PATIENT NAME: Francisca Velasquez DATE: July 05, 2018 TIME: 1:56 PM PAGER/CONTACT #: [phone] Previous Version Tom Magallanes MD MPH [facility] 07/05/2018 3:26 PM Addendum OPERATIVE/PROCEDURE REPORT LOG ID: [id number] Surgery/Procedure Date: 07/05/2018 Incision/Procedure Start Time: 3:11 PM Incision Close/Procedure End Time: 3:17 PM Surgeon(s)/Proceduralist(s) and Cosmetology Instructor(s): Surgeon(s) and Role: * Tom Magallanes - [...] 05, 2018 TIME: 3:22 PM PAGER/CONTACT #: [phone] Previous Version RT Elsa, Bon 07/05/2018 11:28 PM Signed RADIOLOGY SERVICE PROGRESS [...] No IV SITE: Inpatient - refer to [facility] documentation POST EXAM PIV STATUS: Left [...] safety can be found using this link: [email or web address] 20Diagnostic%20Nuclear%20Medicine%20Procedures.pdf SIGNATURE: RT Elsa PATIENT NAME: Francisca [...] Outpatient follow up with his Urologist in [place] - Call if he develops R flank pain, fevers > 38.5, or concern for sepsis - Will sign off, call with questions HISTORY OF PRESENT ILLNESS: The patient is a 62 year old male with a PMHx of ulcerative colitis, prior hx of nephrolithiasis, known to Urology in [place]. Has had stones treated with ESWL 3-4 [...] (thou/cmm) Date Value 07/05/2018 246 Urinalysis: Specific [place], Ur Date Value Ref Range Status 07/05/2018 [...] for stone management with his Urologist in [place] - No further intervention, call if patient becomes febrile > 38.5, hypotensive (<90), or concern for sepsis from stone - D/w Dr. Plascencia Thank you for allowing me to participate in the care of your patient SIGNATURE: Julian Saini MD PATIENT NAME: Francisca Velasquez DATE: 07/06/2018 TIME: 12:40 PM PAGER: [phone] Attending Note I evaluated the patient and [...] 2018 Patient Name: Francisca Velasquez Patient Location: [id number]/[facility]* Admission Date: 07/05/2018 Length of Stay: 1 [...] ? Signed: Caio Meza MD, PGY-1 Pager: [phone] Date: July 06, 2018 Time: 1:18 PM Recommendations are not finalized until co-signed by Staff physician. [facility] STAFF PHYSICIAN NOTE OF PERSONAL INVOLVEMENT IN [...] 2018 Patient Name: Francisca Velasquez Patient Location: [id number]/[place] [address]* Admission Date: 07/05/2018 Length of Stay: 2 [...] mEq/100 mL 20 mEq INTRAVENOUS PRN Jaz Erindaleesa (Res) Vipin magnesium sulfate in water 2 g in sterile water 50 ml 2 g INTRAVENOUS PRN Jaz Erindarshini (Res) Vipin sodium glycerophosphate 45 mmol in NaCl 0.9% 250 mL (GLYCOPHOS) 45 mmol INTRAVENOUS PRN Jaz Erindayamilethni (Res) Vipin Last Rate: 31.25 mL/hr at 07/05/18 0606 45 mmol at 07/05/18 0606 calcium gluconate 4 g in NaCl 0.9% 250 mL 4 g INTRAVENOUS PRN Jaz Erindayamilethni (Res) Vipin lactated ringers infusion 100 mL/hr INTRAVENOUS CONTINUOUS Jaz Erindarshini (Res) Vipin Last Rate: 100 mL/hr at [...] ? Signed: Tyler Santana MD, PGY-1 Pager: [phone] Date: July 07, 2018 Time: 1:34 PM [facility] STAFF PHYSICIAN NOTE OF PERSONAL INVOLVEMENT IN [...] Previous Version Tom Magallanes MD MPH [facility] 07/07/2018 3:25 PM Signed SUBJECTIVE: Francisca Velasquez [...] primary care 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 SIGNATURE: Dilip Ibanez RN PATIENT NAME: Francisca Velasquez DATE: July 08, 2018 TIME: 9:07 AM PAGER/CONTACT #: [phone] Tom Magallanes MD MPH [facility] 07/08/2018 10:54 AM Signed OPERATIVE/PROCEDURE REPORT LOG ID: [id number] Surgery/Procedure Date: 07/08/2018 Incision/Procedure Start Time: Incision Close/Procedure End Time: Surgeon(s)/Proceduralist(s) and Cosmetology Instructor(s): Surgeon(s) and Role: * Tom Magallanes - [...] MPH [facility] SIGNATURE: Tom Magallanes MD MPH CP PATIENT NAME: Francisca Velasquez DATE: July 08, 2018 TIME: 10:50 AM PAGER/CONTACT #: [phone] Mary Grace Gr RN, RN 07/08/2018 10:56 AM Signed Nursing Progress Note Patient Name: Francisca Velasquez Patient Location: [place] [address]/[place] [address]* Daily Note:bedside colonostopy completed. See vitals from 1000 to current. Pt tolerated well. See attached sedation form. Pt now awake and answering questions but drowsy. Vitals stable. Will monitor This note was completed by: JUVE Tobar MD, MD 07/08/2018 1:30 PM Attested Attestation signed by Abdulaziz Cintron at 07/08/2018 1:48 PM [facility] ([facility] ST[facility]FF PHYSICIAN NOTE OF PERSONAL INVOLVEMENT IN [...] 2018 Patient Name: Francisca Velasquez Patient Location: [id number]/[facility]-481* Admission Date: 07/05/2018 Length of Stay: 3 [...] mg ORAL DAILY wDINNER Ke (Res) Atassi [START ON 07/09/2018] pantoprazole [...] g INTRAVENOUS PRN Jaz Priyadarshini (Res) Vipin lactated ringers infusion 100 mL/hr INTRAVENOUS CONTINUOUS Jaz Priyadarshini (Res) Lew Last Rate: 100 mL/hr at 07/08/18 1208 100 mL/hr at 07/08/18 1208 perflutren lipid microspheres 1.1 mg/mL 1.3 mL injection (DEFINITY) 1.3 mL INTRAVENOUS DIRECTED PRN Ke (Res) Atassi Labs: CBC: Recent Labs 07/08/18 0930 07/08/18 [...] management Signed: Caio Meza MD, PGY-1 Pager: [phone] Date: July 08, 2018 Time: 1:24 PM Recommendations are not finalized until co-signed by Staff physician. Previous Version Yuliet Rubio, RN, RN 07/08/2018 6:52 PM Signed CAPSULE [...] SB Capsule Endoscope (Olympus/Given) without difficulty. Lot#: [id number] Date of expiration: 09-26-2019 POST-PROCEDURE Post-capsule instructions reviewed and written information was provided to patient. Staff will sweet pickle maker tomorrow SIGNATURE: Yuliet Rubio RN PATIENT NAME: Francisca Velasquez DATE: July 08, 2018 TIME: 6:50 PM CONTACT #: [phone] Yuliet Rubio RN, RN 07/08/2018 6:57 PM Signed CAPSULE [...] cell phones, computers, remote TV appliances, microwaves, MP3 players and digital cameras. Because the equipment [...] given prior to ingestion of pill cam. #[id number]. Expiration 09-26-2019 Caio Meza MD, 07/09/2018 11:41 AM Attested Attestation signed by Abdulaziz Cintron at 07/09/2018 4:24 PM [facility] ([facility] STAFF PHYSICIAN NOTE OF PERSONAL INVOLVEMENT IN [...] of care, medical plan for the day, forestry consultant recommendations, medical disposition and current medical [...] 2018 Patient Name: Francisca Velasquez Patient Location: [id number]-0790/[facility]* Admission Date: 07/05/2018 Length of Stay: 4 [...] g INTRAVENOUS PRN Jaz Linares (Res) Vipin perflutren lipid microspheres 1.1 mg/mL 1.3 mL injection (DEFINITY) 1.3 mL INTRAVENOUS DIRECTED PRN Ke (Res) [place] Labs: CBC: Recent Labs 07/09/18 0945 07/09/18 [...] management Signed: Caio Meza MD, PGY-1 Pager: [phone] Date: July 09, 2018 Time: 11:35 AM Recommendations are not finalized until co-signed by Staff physician. Daniel Greenwood, AUTOMOTIVE AIRCONDITIONING MECHANIC.COMPUTER ARTIST 07/09/2018 3:15 PM Signed CONSULT PROGRESS NOTE [...] await capsule endoscopy results SIGNATURE: Daniel Greenwood APRN.COMPUTER ARTIST PATIENT NAME: Francisca Velasquez DATE: July 09, [...] HLD, former smoker who was admitted to [facility] as a level III trauma after [...] 5/5 5/5 5/5 5/5 5/5 5/5 Left 5/ 5/5 5/5 5/5 5/5 5/ 5/5 5/5 5/5 5/5 5/5 Neck Flexors [...] 09, 2018 TIME: 2:53 PM [facility]AG[facility]CONTACT #: [phone] [facility] Willard Torre MD Agree with [...] goals of care,?medical plan for the day, forestry consultant recommendations, medical disposition and current medical [...] Status: F Source: [place] 3:31 PM [facility] REPOSITORY TYPE CODE TESTS RESULT OUT OF [...] 9 Performed By: #### L500.4050, L501.9520 #### [facility] [address] [place], [place], [address] THYROID STIM HORMONE Collected: 06/05/2018 Status: F Source: [place] (TSH) 3:31 PM [facility] REPOSITORY TYPE CODE TESTS RESULT OUT OF RANGE REFERENCE UNITS LAB L501.9520 0.358-3.74 uIU/mL Low TSH 0.34 Performed By: #### L500.4050, L501.9520 #### [facility] [address] [place], [place], [address] CBC W/DIFF, AUTOMATED Collected: 06/05/2018 Status: F Source: [place] 3:31 PM [facility] REPOSITORY TYPE CODE TESTS RESULT OUT OF [...] 1.95 Performed By: #### L100.0100, L101.9900 #### [facility] [id number] ERYTHROCYTE SED RATE Collected: 06/05/2018 Status: F Source: [place] 3:31 PM [facility] REPOSITORY TYPE CODE TESTS RESULT OUT OF RANGE REFERENCE UNITS LAB L102.0000 0-20 mm/hr Normal SED RATE 13 Performed By: #### L100.0100, L101.9900 #### [facility] [address] [facility] [id number] RAPID PLASMIN REAGIN Collected: 06/05/2018 Status: F Source: [place] (RPR) 3:31 PM [facility] REPOSITORY TYPE CODE TESTS RESULT OUT OF REFERENCE UNITS RANGE LAB L700.5000 NONREACTIVE NONREACTIVE Normal RPR Performed By: #### L700.5000 #### [facility] [address] [facility] [id number] ANTINUCLEAR ANTIBODIES Collected: 06/05/2018 Status: F Source: [place] 3:31 PM [facility] REPOSITORY TYPE CODE TESTS RESULT OUT OF RANGE REFERENCE UNITS LAB L3100.5475 Negative Normal Negative KUNAL-DIRECT Result Comment: Performed at: [address] [id number] Ups Driver: Malvin Mendoza PhD, Phone: [phone] Performed By: #### L3100.5475 #### [facility] (refer to report for specific site) refer to report for address and phone number PROTEIN ELECTROPH, S Collected: 06/05/2018 Status: F Source: [place] 3:31 PM [facility] REPOSITORY TYPE CODE TESTS RESULT OUT OF [...] scan will follow via computer, mail, or deoiling machine operator delivery. LAB L3100.4340 . Normal NOTE: Comment Result Comment: Serum protein electrophoresis shows an increase in the percentage of the Beta Globulin fraction. Pattern may be attributed to conditions such as iron deficiency anemia, diabetes mellitus or a paraprotein with beta migration. Performed at: [facility] Lab[address] [id number] Ups Driver: Michael Ibanez MD, Phone: [phone] Performed at: [address] [id number] Ups Driver: Malvin Mendoza PhD, Phone: [phone] Performed By: #### L3100.3450, H5574.1158 #### [facility] (refer to report for specific site) refer to report for address and phone number LYME ANTIBODIES,W BLOT Collected: 06/05/2018 Status: F Source: [place] 3:31 PM [facility] REPOSITORY TYPE CODE TESTS RESULT OUT OF [...] are those recommended by CDC/ASTPHLD. p23=Osp C, c22=chyqmvmoc Note: Sera from individuals with the following may cross react in the [place] Western Blot assays: other spirochetal diseases (periodontal disease, leptospirosis, relapsing fever, yaws, and pinta); connective autoimmune (Rheumatoid Arthritis and Systemic Lupus Erythematosus and also individuals with Antinuclear Antibody); other infections ([place] Spotted Fever; Kaila-Swanson Virus, and Cytomegalovirus). Performed By: #### L3100.3450, L7000.5800 #### [facility] (refer to report for specific site) refer to report for address and phone number PROTEIN ELECTRO.UR-RANDOM Collected: Status: F Source: [place] 06/05/2018 3:31 PM [facility] REPOSITORY TYPE CODE TESTS RESULT OUT OF RANGE REFERENCE UNITS LAB L3600.4100 Not Estab. mg/dL Normal 11.9 PROTEIN,UR LAB L3600.4200 . % Normal 45.1 ALBUMIN,UR LAB L3600.4300 . % Normal 2.3 DLSPG-9-TVAU ,U LAB L3600.4400 . % Normal 10.7 RARWV-2-EDAA ,U LAB L3600.4500 . % Normal BETA 23.6 GLOB,U LAB L3600.4600 . % Normal GAMMA 18.2 GLOB,U LAB L3600.4720 Normal M-SPIKE,U Result Comment: NOT OBSERVED LAB L3600.4800 . Normal NOTE Comment Result Comment: Protein electrophoresis scan will follow via computer, mail, or deoiling machine operator delivery. Performed at: - [facility] [id number] Ups Driver: Malvin Mendoza PhD, Phone: [phone] Performed By: #### L3600.4000 #### [facility] (refer to report for specific site) refer to report for address and phone number CONSULTATION Observed: 05/31/2018 Status: F Source: [place] 10:56 AM [facility] REPOSITORY [facility] Medical Records Department [address] [place] [address] Consultation 05/29/18 1347 MR#: [id number] Acct: [id number] Name: FRANCISCA VELASQUEZ Rep #: [id number] : 1955 62 From: Jos Wong MD PCP: Erwin Bae MD Status: DIS AUGUSTO Y Location: [place] [address] Reason for Consult Date of Consultation: 05/29/18 [...] LEAD ELECTROCARDIOGRAM Observed: 05/30/2018 Status: F Source: [place] 9:57 AM [facility] REPOSITORY [facility] Cardiovascular Services [address] [place] [address] 12 Lead EKG 05/28/18 1305 MR#: [id number] Acct: [id number] Name: FRANCISCA VELASQUEZ Rep #: [id number] : 1955 62 From: Marc Gunn MD Attending Dr: Tania Love MD Status: DIS AUGUSTO Ordering Dr: John Padilla MD Date: 05/28/18 Location: [facility] Sex: M C Admitted: 05/28/18 Test [...] , age undetermined Abnormal ECG Confirmed by MARC GUNN MD ([id number]), supervising film or videotape editor ELMER ANTONY ([id number]) on 05/30/2018 9:56:50 AM Referred By: Edith Rodriguez Confirmed By:MARC GUNN MD 05/30/18 0956 Date Marc Gunn MD CC: Tania Love MD; Erwin Bae MD; Edith [place]; John Padilla MD Signed DISCHARGE SUMMARY Observed: 05/29/2018 Status: F Source: [place] 5:15 PM [facility] REPOSITORY [facility] Medical Records Department [address] [place] [address] Discharge Summary 05/29/18 1138 MR#: [id number] Acct: [id number] Name: FRANCISCA VELASQUEZ Rep #: [id number] : 1955 62 From: Blank DAVISON PCP: Erwin Bae MD Status: DIS AUGUSTO Y Location: [place] [address] ADDENDUM by SAMAN Lloyd on 05/29/18 at [...] Jorge Ellis MD at 13:44 EDT Tel [phone], Service support , Brain MRI 05/28/18 14:58 [...] 250 mg PO DAILY 05/28/18 Green Tea Mineral Point Extract [Green Tea Extract] 150 mg PO DAILY 05/28/18 L.acidoph,Paracasei, B.lactis [Probiotic] 1 each PO PRN PRN 05/28/18 Melatonin/Pyridoxine [Melatonin 5 mg Tablet] 5 mg PO QHS 05/28/18 Multivitamin [Daily Multiple Vitamin] 1 tab PO DAILY 05/28/18 [place]-3 Fatty Acids/Fish Oil [Fish Oil 1,000 mg [...] Diagnoses (Choose all that apply): None applicable <[place] - Last Filed: 05/29/18 17:15> Discharge Date [...] Diet Code Visit OBSV E AND M: [id number] Observation care discharge 05/29/18 1144 <Electronically signed by Blank DAVISON> Date Blank DAVISON Cosigner Signature (if applicable): Date CC: CATALYTIC CONVERTER OPERATOR HELPERMarlenaC Blank Lloyd; Tania Love MD; Erwin Bae MD Signed DISCHARGE INSTRUCTION Observed: 05/29/2018 Status: F Source: [place] 11:40 AM [facility] REPOSITORY [facility] Medical Records Department [address] [place] [address] Instructions for Home/Discharge Instructions 05/29/18 1135 MR#: [id number] Acct: [id number] Name: FRANCISCA VELASQUEZ Rep #: [id number] : 1955 62 From: Blank DAVISON PCP: [...] 250 mg PO DAILY 05/28/18 Green Tea Mineral Point Extract [Green Tea Extract] 150 mg PO DAILY 05/28/18 L.acidoph,Paracasei, B.lactis [Probiotic] 1 each PO PRN PRN 05/28/18 Melatonin/Pyridoxine [Melatonin 5 mg Tablet] 5 mg PO QHS 05/28/18 Multivitamin [Daily Multiple Vitamin] 1 tab PO DAILY 05/28/18 [place]-3 Fatty Acids/Fish Oil [Fish Oil 1,000 mg [...] Blank DAVISON> Date Blank DAVISON CC: Erwin Bea MD; Jos Wong MD LIPID PROFILE Collected: 05/29/2018 Status: F Source: [place] 6:42 AM [facility] REPOSITORY TYPE CODE TESTS RESULT OUT OF [...] VLDL 17 Performed By: #### L500.4100 #### [facility] [address] [facility] [place], [address] ECHOCARDIOGRAM COMPLETE Observed: 05/28/2018 Status: F Source: [place] 6:03 PM [facility] REPOSITORY [facility] Cardiovascular Services [address] [place] [address] Echo Complete 05/28/18 1527 MR#: [id number] Acct: [id number] Name: FRANCISCA VELASQUEZ Rep #: [id number] : 1955 62 From: Gordy Perdomo MD Attending Dr: Edith Rodriguez Status: ADM AUGUSTO Ordering Dr: Edith Rodriguez MD Date: 05/28/18 Location: [facility] Sex: M C Admitted: 05/28/18 Reason For [...] Bae Performed By: Radha Rios, GARO, RVT 05/28/181801 Date Gordy Perdomo MD CC: Erwin Bae MD; Edith Rodriguez Date Dictated: 05/28/18 1527 Date Transcribed: 05/28/181801 Recreational Sports Director: Signed MRA HEAD ONLY WITHOUT Observed: 05/28/2018 Status: F Source: [place] CONTRAST 5:45 PM [facility] REPOSITORY [facility] Imaging Services [address] [place] [address] MRA Head ONLY without Contrast MR#: [id number] Acct: [id number] Name: FRANCISCA VELASQUEZ Rep #: [id number] : 1955 M 62 From: Cameron Rosenbaum MD PCP: Erwin Bae MD Status: ADM AUGUSTO Study: MRA Head ONLY without Contrast Date of Exam: 05/28/18 Exam# [id number] Ordering Dr: Edith Rodriguez MD STUDY: MRA OF THE HEAD WITHOUT CONTRAST REASON FOR EXAM: Male, 62 years old. CVA TECHNIQUE: 3-D crqc-oe-xekghk (TOF) imaging was performed with MIPs. The [...] There is no demonstrated aneurysm of the [place]. There is no major vessel occlusion or hemodynamically significant stenosis. There is no demonstrated abnormality of the visualized brain. MRI/MRA Head ONLY without Contrast IMPRESSION: Narrowed A1 segment of the left anterior cerebral artery No other significant abnormality Electronically Signed: Cameron Rosenbaum MD at 20:57 EDT , Service support , CC: Erwin Bae MD; Edith Rodriguez Recreational Sports Director: Signed EMERGENCY DEPARTMENT Observed: 05/28/2018 Status: F Source: [place] SUMMARY 4:23 PM [facility] REPOSITORY [facility] Medical Records Department [address] [place] [address] Emergency Department Summary 05/28/18 1420 MR#: [id number] Acct: [id number] Name: FRANCISCA VELASQUEZ Rep #: [id number] : 1955 62 From: John Padilla MD [...] 1. TIA. This note was generated with LigerTail dictation software. It may contain incorrect words, [...] problems, contact your Primary Care Provider. Call [facility] [employer] [facility] ([phone]) or report to the closest Emergency Room. Call 911 if necessary. 05/28/18 4494 <Electronically signed by John Padilla MD> Date John Padilla MD Cosigner Signature (If Indicated): Date CC: Erwin Bae MD HISTORY AND PHYSICAL Observed: 05/28/2018 Status: F Source: [place] EXAM 3:12 PM [facility] REPOSITORY [facility] Medical Records Department [address] [place], [place] [address] [address] History and Physical 05/28/18 0606 MR#: [id number] Acct: [id number] Name: FRANCISCA VELASQUEZ Rep #: [id number] : 1955 62 From: Edith Rodriguez MD PCP: Erwin Bae MD Status: ADM AUGUSTO Y Location: [place] [address] Problem List (1) Benign prostatic hyperplasia Status: [...] Jorge Ellis MD at 13:44 EDT Tel [phone], Service support , Assessment/Plan This is a [...] Subcu Lovenox. This note was generated with LigerTail dictation software. It may contain incorrect words, spelling, and punctuation that were not noted in checking the note before signing. Code Visit OBSV E AND M: 07036 Initial observation care L2 05/28/18 1512 <Electronically signed by Edith Rodriguez MD> Date dEith Rodriguez MD Cosigner Signature: Date (if applicable) CC: Erwin Bae MD; Edith Rodriguez Signed BRAIN WITHOUT Observed: 05/28/2018 Status: F Source: [place] CONTRAST 2:58 PM [facility] REPOSITORY [facility] Imaging [place] [address] [place] [address] Brain without Contrast MR#: [id number] Acct: [id number] Name: FRANCISCA VELASQUEZ Rep #: [id number] : 1955 M 62 From: Cameron Rosenbaum MD PCP: Erwin Bae MD Status: ADM AUGUSTO Study: Brain without Contrast Date of Exam: 05/28/18 Exam# [id number] Ordering Dr: Edith Rodriguez MD STUDY: MRI [...] , CC: Erwin Bae MD; Edith Rodriguez Recreational Sports Director: Signed MRA NECK WITH AND W/O Observed: 05/28/2018 Status: F Source: [place] CONTRAST 2:58 PM [facility] REPOSITORY [facility] Imaging Services [address] [place] [address] MRA Neck WITH and W/O Contrast MR#: [id number] Acct: [id number] Name: FRANCISCA VELASQUEZ Rep #: [id number] : 1955 M 62 From: Cameron Rosenbaum MD PCP: Erwin Bae MD Status: ADM AUGUSTO Study: MRA Neck WITH and W/O Contrast Date of Exam: 05/28/18 Exam# [id number] Ordering Dr: Edith Rodriguez MD STUDY: MRA NECK WITH AND WITHOUT CONTRAST REASON FOR EXAM: Male, 62 years old. Stroke TECHNIQUE: 3-D gozp-cs-jztryk (TOF) imaging was performed in an 1.5 [...] , CC: Erwin Bae MD; Edith Rodriguez Recreational Sports Director: Signed BEDSIDE GLUCOSE Collected: 05/28/2018 Status: F Source: [place] 1:31 PM [facility] REPOSITORY TYPE CODE TESTS RESULT OUT OF RANGE REFERENCE UNITS LAB L501.080 70-110 mg/dL Normal BEDSIDE GLU 98 Result Comment: MANAGEMENT OF PATIENT CARE PER NURSING PROTOCOL Performed By: #### L501.080 #### [facility] Point of Care [address] [place], [place] [address] CBC W/DIFF, AUTOMATED Collected: 05/28/2018 Status: F Source: [place] 1:05 PM [facility] REPOSITORY TYPE CODE TESTS RESULT OUT OF [...] Lymph 1.39 Performed By: #### L100.0100 #### [facility] [address] [facility]. [place], [place], [address] BASIC METABOLIC Collected: 05/28/2018 Status: F Source: [place] PROFILE (BMP) 1:05 PM [facility] REPOSITORY TYPE CODE TESTS RESULT OUT OF [...] 9 Performed By: #### L500.2500, L501.4010 #### [facility] [address] [place], [address] TROPONIN-I Collected: 05/28/2018 Status: F Source: [place] 1:05 PM [facility] REPOSITORY TYPE CODE TESTS RESULT OUT OF RANGE REFERENCE UNITS LAB L501.4010 <0.045 ng/mL Normal < 0.015 TROPONIN-I Result Comment: TROPONIN-I EXPECTED VALUES <0.045 Negative 0.045 - 0.590 Consistent with Cardiac Damage > OR = 0.600 Critical Value Not every elevated troponin is indicative of [place]. These values should be used with clinical judgement in examining the patient's clinical picture for diagnosis. To establish a diagnosis of KS versus myocardial injury, there must be a demonstrated rise and/or fall in the troponin values, in addition to ischemic symptoms, EKG changes, new regional wall motion abnormality, and/or angiographical evidence. PLEASE NOTE: REFERENCE RANGES EDITED 17 Performed By: #### L500.2500, L501.4010 #### [facility] [address] [facility] [place], [address] PROTHROMBIN TIME W/INR Collected: 05/28/2018 Status: F Source: [place] 1:05 PM [facility] REPOSITORY TYPE CODE TESTS RESULT OUT OF RANGE REFERENCE UNITS LAB L300.4150 11.7-14.9 SECONDS Normal PROTIME 11.9 LAB L300.4200 Normal INR 0.9 Performed By: #### L300.3900, L300.4310 #### [facility] [address] [facility] [place], [address] PARTIAL THROMBOPLAST Collected: 05/28/2018 Status: F Source: [place] TIME 1:05 PM [facility] REPOSITORY TYPE CODE TESTS RESULT OUT OF RANGE REFERENCE UNITS LAB L300.4310 24.1-36.2 Seconds Normal PTT 27.0 Performed By: #### L300.3900, L300.4310 #### [facility] [address] [facility] [place], [address] BRAIN/HEAD WITHOUT Observed: 05/28/2018 Status: F Source: [place] CONTR[place] 12:40 PM [facility] REPOSITORY [facility] Imaging Services [address] [place] [address] Brain/Head without Contrast MR#: [id number] Acct: [id number] Name: FRANCISCA VELASQUEZ Rep #: [id number] : 1955 M 62 From: Jorge Ellis MD PCP: Erwin Bae MD Status: REG ER Study: Brain/Head without Contrast Date of Exam: 05/28/18 Exam# [id number] Ordering Dr: John Padilla MD STUDY: CT [...] Jorge Ellis MD at 13:44 EDT Tel [phone], Service support , CC: Erwin Bae MD; John Padilla MD Recreational Sports Director: Signed ALLERGIES ALLERGIES DATE TYPE / CODE NAME / CODE REACTION SEVERITY SOURCE 07/05/2018 DRUG PENICILLIN ANAPHYLAXIS High [facility] INGREDI/419 Other [place] [address]([facility] Repository ED CT) 05/28/2018 Drug Penicillins/F001 Anaphylaxis Unknown [place] Allergy/416 [id number](RXNORM) [facility] 914039([facility] ED CT) Repository /[id number] PENICILLIN [facility] La[facility] System CT) Repository ENCOUNTERS ENCOUNTERS ADMIT/DISCHARGE ACCOUNT NUMBER ADMITTING ENCOUNTER LOCATION SOURCE CLASS 08/30/[id number] [facility] ding: Repository 07/23/[id number] [facility] ding:US Repository 07/15/2018 [id number] [facility] ding:LAB Repository 07/05/2018/07/11/20 [id number] [facility], Inpatient [place] 18 RIC R Encounter Clinic Other [place] Repository 07/05/2018/07/11/20 [id number] [facility], Inpatient [place] [facility] 18 RIC R [facility] MEDICAL Repository CENTERBuildi nRoom: 7105Bed: 02 07/04/2018/07/05/20 [id number] Emergency [address] ding:ED Repository 06/05/[id number] [facility] ding:MTLAB Repository 05/28/2018/05/29/20 [id number] [facility], Ambulatory [address] ding:PCURoom Repository : [id number]: 1 05/28/2018 [id number] [facility], Ambulatory BMSBuilding: [place]hasem [facility] Repository 05/28/2018 [id number] [facility], Ambulatory BMSBuilding: [place] Ghasem [facility] Repository 05/28/2018/05/29/20 [id number] Ambulatory BMSBuilding: [place] 18 [facility] Repository PAYERS PAYERS ENCOUNTER GUARANTOR PAYER SUBSCRIBER SOURCE 08/30/2018 FRANCISCA Hsieh Primary FRANCISCA Hsieh [place] [id number] Insurance:Malorie DOMINGUEZ: [facility], Number: [id number] [facility] [address]Xup: [id number] Repository Date:8720-23-61CH [address]OX ([address]) [address] [place] [address]TQ: 08/30/2018 Secondary NOT GIVENUNK [place] Insurance:SELF PAY [facility] Number: Effective Repository Date:2018 07/23/2018 FRANCISCA Hsieh Primary FRANCISCA VELASQUEZ426 Insurance:AETNAPolicy WILLIAMSDOB: [facility], Number: [id number] [facility] [address]Fya: [id number] Repository Date:9086-09-53RD [address] () [place] [address]AY: 07/23/2018 Secondary NOT GIVENUNK [place] Insurance:SELF PAY [facility] Number: Effective Repository Date:2018-07-18 07/15/2018 FRANCISCA Hsieh Primary FRANCISCA VELAS[address]Z426 Insurance:AETNAPolicy WILLIAMSDOB: [facility], Number: [id number] [facility] [place] [address]Miq: [id number] Repository Date:2944-85-88DE [address] () [place] [address]IQ: 07/15/2018 Secondary NOT GIVENUNK [place] Insurance:SELF PAY [facility] Number: Effective Repository Date:2018-07-15 07/05/2018 FRANCISCA Hsieh Primary FRANCISCA Hsieh Ramu VELASQUEZDOB: Insurance:AETNA WILLIAMSDOB: Health [facility] CHOICE POS IIPoly [id number], Number: [place] [id number]: [id number] Date: (HP) 07/04/2018 FRANCISCA Hsieh Primary FRANCISCA VELAS[address]Z426 Insurance:AETNAPolicy WILLIAMSDOB: [facility] Number: [id number] [place] [address]Afi: [id number] Repository Date:3768-97-41CW [address] () [address] [address]BJ: 07/04/2018 Secondary NOT GIVENUNK [place] Insurance:SELF PAY [facility] Number: Effective Repository Date:2018-07-04 06/05/2018 FRANCISCA Hsieh Primary FRANCISCA VELAS[address]Z426 Insurance:AETNAPolicy WILLIAMSDOB: Community [facility], Number: [id number] [facility] [address]Vcr: [id number] Repository Date:9263-32-21BQ [address] () [place], [place] [address]DI: 06/05/2018 Secondary NOT GIVENUNK [place] Insurance:SELF PAY [facility] Number: Effective Repository Date:2018-06-05 05/28/2018 FRANCISCA Hsieh Primary FRANCISCA VELASQUEZ426 Insurance:AETNAPolicy WILLIAMSDOB: Community [facility], Number: [id number] [facility] [address]Jwu: [id number] Repository Date:8309-91-87NL [address] () [place], [place] [address]DK: 05/28/2018 Secondary NOT GIVENUNK [place] Insurance:SELF PAY [facility] Number: Effective Repository Date:2018-05-28 05/28/2018 FRANCISCA Hsieh Primary FRANCISCA VELASQUEZ426 Insurance:AETNAPolicy WILLIAMSDOB: Community [facility], Number: [id number] [facility] [address]Euf: [id number] Repository Date:9266-66-61EA [address] () [place], [place] [address]RO: 05/28/2018 Secondary NOT GIVENUNK [place] Insurance:SELF PAY [facility] Number: Effective Repository Date:2018-05-28 05/28/2018 FRANCISCA Hsieh Primary FRANCISCA VELASQUEZ426 Insurance:AETNAPolicy WILLIAMSDOB: Community [facility], Number: [id number] [place] [address]Oyv: [id number] Repository Date:0510-83-80SY [address] () [address] [address]EW: 05/28/2018 Secondary NOT GIVENUNK [place] Insurance:SELF PAY [facility] Number: Effective Repository Date:2018-05-28 05/28/2018 FRANCISCA Hsieh Primary FRANCISCA Argueta [id number] Insurance:AETNAMaria Elena NICHOLSB: [facility], Number: [id number] [facility] [address]Izf: [id number] Repository Date:6640-49-98KN [address] () [address] [address]DE: 05/28/2018 Secondary NOT GIVENUNK [place] Insurance:SELF PAY [facility] Number: Effective Repository Date:2018-05-28
== END ==
PROVIDERS: Family Provider Family Medicine; PCP Family Medicine; Referring Provider Family Medicine; Visit Provider Family Medicine
DX: E04.9 Nontoxic goiter, unspecified (principal)
CPT/HCPCS: 76536

== ENCOUNTER → 2018-08-30 20:33 | Outpatient (CLI) | payer OTHER, SELFPAY | PROVIDERS: Family Provider Family Medicine; PCP Family Medicine; Referring Provider Psychiatry & Neurology Neurology; Visit Provider Psychiatry & Neurology Neurology | DX: G47.33 Obstructive sleep apnea (adult) (pediatric) (principal) | CPT/HCPCS: 95810 ==

== ENCOUNTER → 2018-09-04 14:04 | Outpatient (CLI) | payer OTHER, SELFPAY ==
--- NOTE | 2018-09-04 14:08 | RAD_ITS ---
HISTORY: lower respiratory tract infection EXAM:XR Chest 2 Views: COMPARISON: CT cervical spine 07/04/2018 FINDINGS: Normal heart size. 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 Corresponding mild widening of the superior mediastinum. Prominent lung volumes. No vascular congestion, pleural effusion, or acute pulmonary infiltration. No pneumothorax. The bony thorax appears intact. RAD/Chest PA and Lateral IMPRESSION: 1. No acute cardiopulmonary disease. 2. 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 at 0403 Reported and signed by: Carlos Rodgers MD Electronically Signed: Carlos Rodgers, at 4:02 EST Tel , Service support ,
[2018-09-04 15:49] LABS: Absolute Lymphocyte Count 1.55 X10^3/ul (0.83-4.51); Absolute Neutrophil Count 7.1 X10^3/uL (2.0-7.7); Basophil# 0.04 X10^3/uL; Basophil% 0.4 % (0-1); Hematocrit 38.8 % (40-54); Lymphocyte # 1.55 X10^3/ul (4.0); Lymphocyte % 15.3 % (19-41); Mean Corp Hgb Conc 30.9 g/gl (32-36); Mean Corpuscular Hgb 27.1 pg (27.0-32.0); Mean Corpuscular Volume 87.6 fL (80-94); Mean Platelet Vol. 9.7 fl (6.2-12.0); Monocyte% 11.9 % (0-10); Neutrophil # 7.11 X10^3/uL (2.7-7.7); Neutrophil % 70.2 % (47-70); Platelet Count 305 K/mm3 (150-450); RBC Distribution Width CV 14.9 % (11.6-14.6); RBC Distribution Width SD 47.2 fl (35.1-43.9); Red Blood Count 4.43 M/mm3 (4.6-6.2); White Blood Count 10.1 K/mm3 (4.4-11.0)
[2018-09-04 15:50] LABS: POSITIVE COUNT NO; POSITIVE DIFFERENTIAL NO; POSITIVE MORPHOLOGY NO
--- OUTSIDE RECORDS SUMMARY | 2018-11-06 14:33 | XMS RPT_ITS ---
:1955 Author Organization OHIP Support Name Relationship Address Phone [employer] Unavailable [address] + [place] [address] DILIP VELASQUEZ Unavailable [address] + [place] [address] [employer] Unavailable [address] + [place] [address] DILIP VELASQUEZ Unavailable [address] + [place] [address] [employer] Unavailable [address] + [place] [address] DILIP VELASQUEZ Unavailable [address] + [place] [address] [employer] Unavailable [address] + [place] [address] DILIP VELASQUEZ Unavailable [address] + [place] [address] [employer] Unavailable [address] + [place] [address] DILIP VELASQUEZ Unavailable [address] + [place] [address] [employer] Unavailable [address] + [place] [address] DILIP VELASQUEZ Unavailable [address] + [place] [address] [employer] Unavailable [address] + [place] [address] DILIP VELASQUEZ Unavailable [address] + [place] [address] [employer] Unavailable [address] + [place] [address] DILIP VELASQUEZ Unavailable [address] + [place] [address] [employer] Unavailable [address] + [place] [address] DILIP VELASQUEZ Unavailable [address] + [place] [address] [employer] Unavailable [address] + [place] [address] DILIP VELASQUEZ Unavailable [address] + [place] [address] Care Team Providers Name Role Phone Bae, Erwin Primary Care Unavailable Ashelfah, Ghasem Admitting Unavailable Ashelfah, Ghasem Referring Unavailable Paintsil, Carlock Attending Unavailable Jos Wong Consulting Unavailable Ashelfah, Ghasem Admitting Unavailable Ashelfah, Ghasem Attending Unavailable Ashelfah, Ghasem Referring Unavailable Bae, Erwin Primary Care Unavailable Ashelfah, Ghasem Consulting Unavailable Ashelfah, Ghasem Admitting Unavailable SAMAN Lopez Attending Unavailable Ashelfah, Ghasem Referring Unavailable Bae, Erwin Primary Care Unavailable Jos Wong Consulting Unavailable Paintsil, Carlock Consulting Unavailable Bae, Erwin Attending Unavailable Bae, [...] HACKETT Attending Unavailable TOM MAGALLANES) Consulting Unavailable DIEGO FOWLER Consulting Unavailable NAYELY PLASCENCIA Consulting Unavailable REFUGIO GOODMAN Consulting Unavailable PROBLEMS PROBLEMS DATE TYPE CONDITION / CODE ATTENDING STATUS SOURCE 09/04/2018 Unknown J22 - Unspecified Bae, Erwin Active [facility] respiratory Hospital infection / Repository J22(ICD-10) 09/04/2018 Unknown L04.0 - Acute Bae, Erwin Active [place] lymphadenitis of [facility] face, head [facility] neck Hospital / L04.0(ICD-10) Repository 07/11/2018 Active Melena / RENETTARBARAMIREZ, Active [place] K92.1(ICD-10) [facility] Other [facility] Repository 07/11/2018 Active [facility] [place] and rectum / AB Clinic Other K62.5(ICD-10) [facility] Repository 07/05/2018 Active Syncope and ALSRBARAMIREZ, Active [place] collapse / AB Clinic Other R55(ICD-10) [facility] Repository 07/11/2018 Admitting Unknown / MD LEW Active [facility] diagnosis UNK(Unknown) [facility] Repository 06/05/2018 Unknown R29.818 - Other Erwin Bae Active [facility] symptoms and signs [facility] involving the Hospital nervous system / Repository R29.818(ICD-10) PROCEDURES PROCEDURES No Procedure Records FoundRESULTS RESULTS CRP Collected: 09/04/2018 Status: F Source: [place] 2:13 PM [facility] REPOSITORY TYPE CODE TESTS RESULT OUT OF RANGE REFERENCE UNITS LAB L501.6710 0.0-3.0 mg/L High 74.70 C-REACTIVE PROT Result Comment: C-Reactive Protein (CRP) provides useful information for the diagnosis, therapy and monitoring of inflammatory processes and associated diseases. For the evaluation of Relative Risk for Cardiovascular Disease, a High Sensitivity CRP (HSCRP) should be ordered. Performed By: #### L501.6710 #### [facility] [address] [place] [address]. [place], [place], [address] CBC W/DIFF, AUTOMATED Collected: 09/04/2018 Status: F Source: [place] 2:13 PM [facility] REPOSITORY TYPE CODE TESTS RESULT OUT OF RANGE REFERENCE UNITS LAB L100.1000 4.4-11.0 K/mm3 Normal WBC 10.1 LAB L100.1200 4.6-6.2 M/mm3 Low RBC 4.43 LAB L100.1300 13.0-16.5 g/dl Low HGB 12.0 LAB L100.1400 40-54 % Low HCT 38.8 LAB L100.1500 80-94 fL Normal MCV 87.6 LAB L100.1600 27.0-32.0 pg Normal MCH 27.1 LAB L100.1700 32-36 g/gl Low MCHC 30.9 LAB L100.1810 11.6-14.6 % High RDW CV 14.9 LAB L100.1820 35.1-43.9 fl High RDW SD 47.2 LAB L100.1900 150-450 K/mm3 Normal PLT 305 LAB L100.2000 6.2-12.0 fl Normal MPV 9.7 LAB L100.2100 47-70 % High NEUT% 70.2 LAB L100.2200 19-41 % Low LY% 15.3 LAB L100.2300 0-10 % High MONO% 11.9 LAB L100.2400 0-5 % Normal EO% 2.0 LAB L100.2500 0-1 % Normal BASO% 0.4 LAB L100.2550 0.0-0.9 % Normal IM GRAN % 0.200 Result Comment: IG% - Immature Granulocytes (promyelocytes, myelocytes and metamyelocytes) > 1% indicates that a LEFT SHIFT is Present. LAB L100.2620 2.0-7.7 X10 3/uL Normal Absolute Neut 7.1 LAB L100.2720 0.83-4.51 X10 3/ul Normal Absolute Lymph 1.55 Performed By: #### L100.0100 #### [facility] [address] [place], [address] CHEST PA AND LATERAL Observed: 09/04/2018 Status: F Source: [place] 2:08 PM [facility] REPOSITORY [facility] Imaging Services [address] [place] [address] Chest PA and Lateral MR#: [id number] Acct: [id number] Name: FRANCISCA VELASQUEZ Rep #: [id number] : 1955 M 63 From: Carlos Rodgers MD PCP: Erwin Bae MD Status: REG CLI Study: Chest PA and Lateral Date of Exam: 09/04/18 Exam# [id number] Ordering Dr: Erwin Bae MD HISTORY: lower respiratory tract infection EXAM:XR Chest 2 Views: COMPARISON: CT cervical spine 07/04/2018 FINDINGS: Normal heart size. 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 Corresponding mild widening of the superior mediastinum. Prominent lung volumes. No vascular congestion, pleural effusion, or acute pulmonary infiltration. No pneumothorax. The bony thorax appears intact. RAD/Chest PA and Lateral IMPRESSION: 1. No acute cardiopulmonary disease. 2. 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 at 0403 Reported and signed by: Carlos Rodgers MD Electronically Signed: Carlos Rodgers, at 4:02 EST Tel , Service support , CC: Erwin Bae MD Bread Oven Operator: Signed THYROID Observed: 07/23/2018 Status: F Source: [place] 2:53 PM [facility] REPOSITORY [facility] Imaging Services [address] [place] [address] Thyroid MR#: [id number] Acct: [id number] Name: FRANCISCA VELASQUEZ Rep #: [id number] : 1955 M 63 From: Chacho Morse PCP: Erwin Bae MD Status: REG CLI Study: Thyroid Date of Exam: 07/23/18 Exam# [id number] Ordering Dr: Erwin Bae MD STUDY: THYROID [...] Service support , CC: Erwin Bae MD Bread Oven Operator: Signed CBC W/DIFF, AUTOMATED Collected: 07/15/2018 Status: F Source: [place] 11:21 AM [facility] REPOSITORY TYPE CODE TESTS RESULT OUT OF [...] 1.25 Performed By: #### L100.0100, L100.9950 #### [facility] [address] [place], [place], [id number] RETIC PANEL Collected: 07/15/2018 Status: F Source: [place] 11:21 AM [facility] REPOSITORY TYPE CODE TESTS RESULT OUT OF [...] marrow. Performed By: #### L100.0100, L100.9950 #### [facility] [address] [place], [place], [id number] COMPREHENSIVE METABOLIC Collected: 07/15/2018 Status: F Source: [facility] 11:21 AM [facility] REPOSITORY TYPE CODE TESTS RESULT OUT OF [...] 9 Performed By: #### L500.4050, L503.6550 #### [facility] [address] [place], [place], [address] FERRITIN Collected: 07/15/2018 Status: F Source: [place] 11:21 AM [facility] REPOSITORY TYPE CODE TESTS RESULT OUT OF RANGE REFERENCE UNITS LAB L503.6550 26-388 ng/mL Normal FERRITIN 66 Performed By: #### L500.4050, L503.6550 #### [facility] [address] [place], [address] 12 LEAD ELECTROCARDIOGRAM Observed: 07/12/2018 Status: F Source: [place] 9:21 AM [facility] REPOSITORY [facility] Cardiovascular Services [address] [place] [address] 12 Lead EKG 07/04/181 MR#: [id number] Acct: [id number] Name: FRANCISCA VELASQUEZ Rep #: [id number] : 1955 62 From: Marc Gunn MD [...] Sinus tachycardia Otherwise normal ECG Confirmed by BRIAN ELIZABETH, MARC ([id number]), production editor TIMOTHY HINTON ([id number]) on 07/08/2018 9:38:01 AM Referred By: NORMA Confirmed By:MARC GUNN MD 07/08/18 0938 Date Marc Gunn MD CC: Erwin Bae MD; Hortensia De Oliveira MD Signed NURSING PROG Observed: 07/11/2018 Status: COMPLETED Source: [place] 4:57 PM [facility] OTHER [facility]AMPUS REPOSITORY HNO ID: [id number] Author: Helga (Rn) JOSE Law Service: (none) Author Type: Registered Nurse Type: Nursing Progress Note Filed: 07/11/2018 4:58 PM Note Text: Dr Hackett states to have patient start plavix tomorrow 07/12/2018 CNDS Observed: 07/11/2018 Status: COMPLETED Source: [place] 4:53 PM [facility] OTHER [facility]AMPUS REPOSITORY HNO ID: [id number] Author: Junaid Hacektt Service: Hospital Medicine Author Type: Physician Type: [...] as well, neurologist recommended resuming Plavix alone, ethylbenzene converter operator recommended CT enterography if bleeding recurred again [...] CONSULT PROG Observed: 07/11/2018 Status: COMPLETED Source: [place] 10:04 AM [facility] OTHER CAMPUS REPOSITORY HNO ID: [id number] Author: Tom Magallanes Service: Gastroenterology Author Type: [...] VTE Prophylaxis/Anticoagulants 07/05/18329 vte pharmacologic prophylaxis contraindicated (il,az) 07/05/18329 pneumatic compression stockings (il,az) 07/05/18329 activity - mobilize patient (il,az) VTE Prophylaxis: VTE prophylaxis appropriate I have [...] July 11, 2018 TIME: 10:04 AM PAGER: [phone] GLUCOSE METER Collected: 07/11/2018 Status: F Source: [facility] 7:37 AM HEALTH SYSTEM REPOSITORY TYPE CODE TESTS RESULT OUT OF REFERENCE UNITS RANGE LAB GLUBL(LOINC 70-99 mg/dL ) High Glucose Meter 102 Result Comment: RN NOTIFIED Performed By: #### GLMET #### [facility] [address] [place] [address] MDRD GFR Collected: 07/11/2018 Status: F Source: [facility] 5:37 AM HEALTH SYSTEM REPOSITORY TYPE CODE TESTS RESULT OUT OF RANGE REFERENCE UNITS LAB GFRFN(LOINC >60mL/min/1.73m ) 2 eGFR >60 Result Comment: If the patient is , multiply the result by 1.210. Performed By: #### GFR #### [facility] [address] [place] [address] HEMOGRAM/DIFF Collected: 07/11/2018 Status: F Source: [facility] 5:37 AM HEALTH SYSTEM REPOSITORY TYPE CODE [...] LAB MONON(LOIN 0.30-0.82 thou/cmm C) Abs. High [place] 0.86 LAB EOSN(LOINC 0.04-0.54 thou/cmm ) Abs. Eosin 0.34 LAB BASON(LOIN 0.01-0.08 thou/cmm C) Abs. Baso 0.04 Performed By: #### CBCD1 #### [place] [address] COMPREHENSIVE PANEL Collected: 07/11/2018 Status: F Source: [facility] 5:37 AM HEALTH SYSTEM REPOSITORY TYPE CODE [...] Gap 12 Performed By: #### P14 #### [place] [address] LIPID PROFILE Collected: 07/11/2018 Status: F Source: [facility] 5:37 HEALTH SYSTEM REPOSITORY TYPE CODE TESTS [...] Triglyceride >400 Performed By: #### LIPD2 #### [address] [address] HGB A1C Collected: 07/11/2018 Status: F Source: [facility] 5:37 AM HEALTH SYSTEM REPOSITORY TYPE CODE TESTS RESULT OUT OF RANGE REFERENCE UNITS LAB A1C5(LOINC) 4.2-6.3 % Hgb A1c 5.1 Result Comment: Method is National Glycohemoglobin Standardization Program (NGSP) compliant. LAB ESAVG(LOINC) mg/dl Est. Avg Glucose 100 Performed By: #### HA1C #### [place] [address] HGB Collected: 2018 Status: F Source: [facility] 4:20 PM HEALTH SYSTEM REPOSITORY TYPE CODE TESTS RESULT OUT OF RANGE REFERENCE UNITS LAB HGBI(LOINC) 13.7-17.5 g/dL Low Hgb 8.4 Performed By: #### HGBI #### [facility] [address] [place] [address] NURSING PROG Observed: 2018 Status: COMPLETED Source: [place] 3:33 PM [facility] REPOSITORY HNO ID: [id number] Author: Abdoulaye MonteroRn) JOSE Cook Service: Nursing Author Type: Registered Nurse Type: Nursing Progress Note Filed: 2018 3:35 PM Note Text: Nursing Progress Note Patient Name: Francisca Velasquez Patient Location: [place] [address]* Daily Note:Called report to 7100, Spoke to JOSE Singh. Answered all questions to best of RN ability. No new information to report at this time. Will update pt's (at bedside) and transfer pt after 4pm Hgb check. No other information to report at this time This note was completed by: Abdoulaye Cook RN CONSULT PROG Observed: 2018 Status: COMPLETED Source: [place] 11:08 AM [facility] OTHER [facility] REPOSITORY HNO ID: [id number] Author: Tom Magallanes Service: Gastroenterology Author Type: [...] VTE Prophylaxis/Anticoagulants 07/05/18329 vte pharmacologic prophylaxis contraindicated (il,az) 07/05/18329 pneumatic compression stockings (il,az) 07/05/18329 activity - mobilize patient (il,az) VTE Prophylaxis: VTE prophylaxis appropriate I have [...] Velasquez DATE: 2018 TIME: 11:10 AM PAGER: [phone] HGB Collected: 2018 Status: F Source: [facility] 10:20 AM HEALTH SYSTEM REPOSITORY TYPE CODE TESTS RESULT OUT OF RANGE REFERENCE UNITS LAB HGBI(LOINC) 13.7-17.5 g/dL Low Hgb 8.5 Performed By: #### HGBI #### [place] [address] CONSULT PROG Observed: 2018 Status: COMPLETED Source: [place] 8:14 AM [facility]IN[facility] OTHER CAMPUS REPOSITORY HNO ID: [id number] Author: Tom Magallanes Service: Gastroenterology Author Type: [...] FRCPC PROGRESS Observed: 2018 Status: COMPLETED Source: [place] 8:13 AM [facility] OTHER CAMPUS REPOSITORY HNO ID: [id number] Author: Junaid Hackett Service: Hospital Medicine Author [...] negative. ? 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 Leucocytosis reactive from #1 ? BPH Plan Cont PPI, Flomax, HANDH q12h, if drops consideration for Ct enterography. Medication and Non-Pharmacologic VTE Prophylaxis/Anticoagulants 07/05/18329 vte pharmacologic prophylaxis contraindicated (il,az) 07/05/18329 pneumatic compression stockings (il,oh) 07/05/18329 activity - mobilize patient (il,az) VTE Prophylaxis: VTE prophylaxis appropriate Disposition: Home Plan of care discussed with: Patient SIGNATURE: Junaid Hackett MD PATIENT NAME: Francisca Velasquez DATE: 2018 PAGER/CONTACT #: [phone] HGB Collected: 2018 Status: F Source: [facility] 3:30 AM HEALTH SYSTEM REPOSITORY TYPE CODE TESTS RESULT OUT OF RANGE REFERENCE UNITS LAB HGBI(LOINC) 13.7-17.5 g/dL Low Hgb 8.1 Performed By: #### HGBI #### [place] [address] HGB Collected: 07/09/2018 Status: F Source: [facility] 8:45 PM HEALTH SYSTEM REPOSITORY TYPE CODE TESTS RESULT OUT OF RANGE REFERENCE UNITS LAB HGBI(LOINC) 13.7-17.5 g/dL Low Hgb 7.9 Performed By: #### HGBI #### [facility] [address] [place] [address] HGB Collected: 07/09/2018 Status: F Source: [facility] 3:45 PM HEALTH SYSTEM REPOSITORY TYPE CODE TESTS RESULT OUT OF RANGE REFERENCE UNITS LAB HGBI(LOINC) 13.7-17.5 g/dL Low Hgb 8.6 Performed By: #### HGBI #### [place] [address] CONSULT Observed: 07/09/2018 Status: COMPLETED Source: [place] 2:52 PM [facility]IN[facility] OTHER CAMPUS REPOSITORY O ID: [id number] Author: Willard Torre Service: Neurology General Author [...] HLD, former smoker who was admitted to [facility] as a level III trauma after [...] Finger Ext Finger Abd Finger Add Right 12/15 12/15 5 5 5 5 5 5 5/5 Left 12/15 12/15 5 5 5 5 5 5 5 Hip Flex Hip Ext BiFem (knee flex) [...] 09, 2018 TIME: 2:53 PM PAGER/CONTACT #: [phone] [facility] STAFF ADDENDUM Willard Torre MD Agree with [...] goals of care,?medical plan for the day, process consultant recommendations, medical disposition and current medical [...] CONSULT PROG Observed: 07/09/2018 Status: COMPLETED Source: [place] 1:43 PM [facility] OTHER CAMPUS REPOSITORY HNO ID: [id number] Author: Daniel Greenwood Service: Gastroenterology Author Type: [...] await capsule endoscopy results SIGNATURE: Daniel Greenwood APRN.PIPE SMOKING MACHINE OFFBEARER PATIENT NAME: Francisca Velasquez DATE: July 09, 2018 TIME: 3:07 PM PAGER: PROGRESS Observed: 07/09/2018 Status: COMPLETED Source: [place] 11:35 AM [facility] OTHER [facility]AMPUS REPOSITORY HNO ID: [id number] Author: Caio Meza MD Service: Critical Care Author Type: Resident Type: Progress Notes Filed: 07/09/2018 11:41 AM Note Text: Attestation signed by Abdulaziz Cintron at 07/09/2018 4:24 PM [facility] STAFF PHYSICIAN NOTE OF PERSONAL INVOLVEMENT IN [...] we will also consult neurology for further regional intermodal truck driver antiplatlets therapy for the future Watch off ABx Ok to transfer to the floor Patient/Family Updated: Patient, Francisca Velasquez, updated regarding the goals of care, medical plan for the day, process consultant recommendations, medical disposition and current medical [...] 2018 Patient Name: Francisca Velasquez Patient Location: [id number]/[place] [address]* Admission Date: 07/05/2018 Length of Stay: 4 [...] 88 94 104 93 Resp: 16 15 21 12 Temp: (!) 35.7 ?C (96.3 ?F) [...] 20 mEq INTRAVENOUS PRN Jaz Linares (Res) Viipn magnesium sulfate in water 2 g in [...] management Signed: Caio Meza MD, PGY-1 Pager: [phone] Date: July 09, 2018 Time: 11:35 AM Recommendations are not finalized until co-signed by Staff physician. HGB Collected: 07/09/2018 Status: F Source: [facility] 9:45 AM HEALTH SYSTEM REPOSITORY TYPE CODE TESTS RESULT OUT OF RANGE REFERENCE UNITS LAB HGBI(LOINC) 13.7-17.5 g/dL Low Hgb 7.9 Performed By: #### HGBI #### [facility] [address] [place] [address] HGB Collected: 07/09/2018 Status: F Source: [facility] 2:50 AM HEALTH SYSTEM REPOSITORY TYPE CODE TESTS RESULT OUT OF RANGE REFERENCE UNITS LAB HGBI(LOINC) 13.7-17.5 g/dL Low Hgb 8.0 Performed By: #### HGBI #### [facility] [address] [place] [address] HGB Collected: 07/08/2018 Status: F Source: [facility] 9:00 PM HEALTH SYSTEM REPOSITORY TYPE CODE TESTS RESULT OUT OF RANGE REFERENCE UNITS LAB HGBI(LOINC) 13.7-17.5 g/dL Low Hgb 7.2 Performed By: #### HGBI #### [facility] [address] [place] [address] NURSING PROG Observed: 07/08/2018 Status: COMPLETED Source: [place] 7:08 PM [facility] REPOSITORY HNO ID: [id number] Author: Yuliet Rubio RN Service: Nursing Author Type: Registered Nurse Type: Nursing Progress Note Filed: 07/08/2018 7:11 PM Note Text: Mylicon 1.8ml given prior to ingestion of pill cam. #[id number]..[id number]. Expiration 09-26-2019 NURSING PROG Observed: 07/08/2018 Status: COMPLETED Source: [place] 6:57 PM [facility] REPOSITORY HNO ID: [id number] Author: Yuliet Hopson) JOSE Rubio Service: Nursing Author Type: Registered Nurse [...] 08, 2018 TIME: 7:03 PM PAGER/CONTACT #: [phone] PROG Observed: 07/08/2018 Status: COMPLETED Source: [place] 6:52 PM [facility]IN[facility] OTHER CAMPUS REPOSITORY HNO ID: [id number] Author: Yuliet (Jose) JOSE Rubio Service: Nursing Author Type: Registered Nurse [...] NURSING PROG Observed: 07/08/2018 Status: COMPLETED Source: [place] 6:50 PM [facility] OTHER CAMPUS REPOSITORY HNO ID: [id number] Author: Yuliet (Jose) JOSE Rubio Service: Nursing Author Type: Registered Nurse [...] SB Capsule Endoscope (Olympus/Given) without difficulty. Lot#: [id number] Date of expiration: 09-26-2019 POST-PROCEDURE Post-capsule instructions reviewed and written information was provided to patient. Staff will pickle maker tomorrow SIGNATURE: Yuliet Rubio RN PATIENT NAME: Francisca Velasquez DATE: July 08, 2018 TIME: 6:50 PM CONTACT #: [phone] HGB Collected: 07/08/2018 Status: F Source: [facility] 3:40 PM HEALTH SYSTEM REPOSITORY TYPE CODE TESTS RESULT OUT OF RANGE REFERENCE UNITS LAB HGBI(LOINC) 13.7-17.5 g/dL Low alert Hgb 6.9 Performed By: #### HGBI #### [facility] [address] [place] [address] PROGRESS Observed: 07/08/2018 Status: COMPLETED Source: [place] 1:24 PM [facility] OTHER [facility]AMPUS REPOSITORY HNO ID: [id number] Author: Caio Meza MD Service: Critical Care Author Type: Resident Type: Progress Notes Filed: 07/08/2018 1:30 PM Note Text: Attestation signed by Abdulaziz Cintron at 07/08/2018 1:48 PM [facility] STAFF PHYSICIAN NOTE OF PERSONAL INVOLVEMENT IN [...] 2018 Patient Name: Francisca Velasquez Patient Location: [place] [address] [address]* Admission Date: 07/05/2018 Length of Stay: 3 [...] liquid 80-120 mEq ORAL/FEEDING TUBE PRN Jaz Khandaleesa (Res) Vipin potassium chloride iv piggyback 20 [...] ringers infusion 100 mL/hr INTRAVENOUS CONTINUOUS Jaz Katelynnyadaroberthini (Res) Vipin Last Rate: 100 mL/hr at [...] BNP:8)@ Intake/Output Summary (Last 24 hours) at 11/26/18 1324 Last data filed at 07/08/18 1207 [...] management Signed: Caio Meza MD, PGY-1 Pager: [phone] Date: July 08, 2018 Time: 1:24 PM Recommendations are not finalized until co-signed by Staff physician. NURSING PROG Observed: 07/08/2018 Status: COMPLETED Source: [place] 10:55 AM [facility]INIC OTHER CAMPUS REPOSITORY O ID: [id number] Author: Mary Grace Hopson) JOSE Gr Service: Nursing Author Type: Registered Nurse Type: Nursing Progress Note Filed: 07/08/2018 10:56 AM Note Text: Nursing Progress Note Patient Name: Francisca Velasquez Patient Location: [place] [address] [address]* Daily Note:bedside colonostopy completed. See vitals from 1000 to current. Pt tolerated well. See attached sedation form. Pt now awake and answering questions but drowsy. Vitals stable. Will monitor This note was completed by: Mary Grace Gr RN OPERATIVE NO Observed: 07/08/2018 Status: COMPLETED Source: [place] 9:46 AM CLINIC OTHER CAMPUS REPOSITORY HNO ID: [id number] Author: Tom Magallanes Service: Gastroenterology Author Type: Physician Type: Operative Report Filed: 07/08/2018 10:54 AM Note Text: OPERATIVE/PROCEDURE REPORT LOG ID: [id number] Surgery/Procedure Date: 07/08/2018 Incision/Procedure Start Time: Incision Close/Procedure End Time: Surgeon(s)/Proceduralist(s) and Psych Rn(s): Surgeon(s) and Role: * Tom Magallanes - [...] 08, 2018 TIME: 10:50 AM PAGER/CONTACT #: [phone] HGB Collected: 07/08/2018 Status: F Source: [facility] 9:30 AM HEALTH SYSTEM REPOSITORY TYPE CODE TESTS RESULT OUT OF RANGE REFERENCE UNITS LAB HGBI(LOINC) 13.7-17.5 g/dL Low Hgb 7.6 Performed By: #### HGBI #### [place] [address] CASE MGT INIT Observed: 07/08/2018 Status: COMPLETED Source: [facility] 9:06 AM CLINIC OTHER CAMPUS REPOSITORY HNO ID: [id number] Author: Dilip (Rn) JOSE Ibanez Service: Care Management Author Type: Registered Nurse Type: Care Mgt Initial Assessment Filed: 07/08/2018 9:16 AM Note Text: CARE MANAGEMENT: ASSESSMENT AND DISCHARGE PLAN SERVICE DATE: 07/08/2018 SERVICE TIME: 9:07 AM PRIMARY CARE PHYSICIAN: No primary care provider on file. Dr [facility] Phone: None ADMISSION STATUS: Inpatient MEDICAL: Patient/Law Office Assistant Stated Goals: To return home to life [...] None Has the Patient Been in a Mcfp Facility in the Past 30 days? No SOCIAL: Living Arrangement: Home Lives With: Spouse Financial Resources: Employed: [employer] for [employer] Primary Contact: Extended Emergency Contact Information Primary Emergency Contact: Dilip Velasquez [place] Relation: Spouse Supportive: Yes Other Important Patient [...] 0 I feel financially burdened by my [id number] expenses for my prescription medication: Disagree mostly [...] EXPLAINED: N/A POTENTIAL TRANSITION PLANS Home Pharmacy: [facility] Plan for Colonoscopy today. SIGNATURE: Dilip Ibanez RN PATIENT NAME: Francisca Velasquez DATE: July 08, 2018 TIME: 9:07 AM PAGER/CONTACT #: [phone] HGB Collected: 07/08/2018 Status: F Source: [facility] 4:20 AM HEALTH SYSTEM REPOSITORY TYPE CODE TESTS RESULT OUT OF RANGE REFERENCE UNITS LAB HGBI(LOINC) 13.7-17.5 g/dL Low alert Hgb 6.9 Performed By: #### HGBI #### [facility] [address] [place] [address] HGB Collected: 07/08/2018 Status: F Source: [facility] 12:15 AM HEALTH SYSTEM REPOSITORY TYPE CODE TESTS RESULT OUT OF RANGE REFERENCE UNITS LAB HGBI(LOINC) 13.7-17.5 g/dL Low Hgb 7.2 Performed By: #### HGBI #### [facility] [address] [place] [address] RBC PRODUCTS Collected: 07/07/2018 Status: F Source: [facility] 10:03 PM HEALTH SYSTEM REPOSITORY TYPE CODE TESTS RESULT OUT OF REFERENCE UNITS RANGE LAB UNIT1(LOINC ) Xmatch Unit 1 see below Result Comment: Compatible Performed By: #### RBCPS #### [facility] [address] [place] [address] HGB Collected: 07/07/2018 Status: F Source: [facility] 9:30 PM HEALTH SYSTEM REPOSITORY TYPE CODE TESTS RESULT OUT OF RANGE REFERENCE UNITS LAB HGBI(LOINC) 13.7-17.5 g/dL Low alert Hgb 6.5 Performed By: #### HGBI #### [facility] [address] [place] [address] HCT Collected: 07/07/2018 Status: F Source: [facility] 9:30 PM HEALTH SYSTEM REPOSITORY TYPE CODE TESTS RESULT OUT OF RANGE REFERENCE UNITS LAB HCTI(LOINC) 40.1-51.0 % Low alert Hct 18.8 Performed By: #### HCTI #### [place] [address] HGB Collected: 07/07/2018 Status: F Source: [facility] 6:30 PM HEALTH SYSTEM REPOSITORY TYPE CODE TESTS RESULT OUT OF RANGE REFERENCE UNITS LAB HGBI(LOINC) 13.7-17.5 g/dL Low Hgb 7.2 Performed By: #### HGBI #### [facility] [address] [place] [address] RBC PRODUCTS Collected: 07/07/2018 Status: F Source: [facility] 6:03 PM HEALTH SYSTEM REPOSITORY TYPE CODE TESTS RESULT OUT OF REFERENCE UNITS RANGE LAB UNIT1(LOINC ) Xmatch Unit 1 see below Result Comment: Compatible Performed By: #### RBCPS #### [facility] [address] [place] [address] RBC PRODUCTS Collected: 07/07/2018 Status: F Source: [facility] 4:19 PM HEALTH SYSTEM REPOSITORY TYPE CODE TESTS RESULT OUT OF REFERENCE UNITS RANGE LAB UNIT1(LOINC ) Xmatch Unit 1 see below Result Comment: Compatible Performed By: #### RBCPS #### [facility] [address] [place] [address] HGB Collected: 07/07/2018 Status: F Source: [facility] 3:57 PM HEALTH SYSTEM REPOSITORY TYPE CODE TESTS RESULT OUT OF RANGE REFERENCE UNITS LAB HGBI(LOINC) 13.7-17.5 g/dL Low alert Hgb 6.0 Performed By: #### HGBI #### [facility] [address] [place] [address] BASIC PANEL Collected: 07/07/2018 Status: F Source: [facility] 3:50 PM HEALTH SYSTEM REPOSITORY TYPE CODE [...] Gap 9 Performed By: #### P8 #### [facility] [address] [place] [address] CONSULT PROG Observed: 07/07/2018 Status: COMPLETED Source: [facility] 3:23 PM CLINIC OTHER CAMPUS REPOSITORY HNO ID: [id number] Author: Tom Magallanes Service: Gastroenterology Author Type: [...] - He can be moved to [facility] when stable. Tom Magallanes MD MPH FRCPC PROGRESS Observed: 07/07/2018 Status: COMPLETED Source: [facility] 1:33 PM CLINIC OTHER CAMPUS REPOSITORY HNO ID: [id number] Author: Luis Felipe Burch Jr. Service: Critical Care Author Type: Physician Type: Progress Notes Filed: 07/07/2018 2:29 PM Note Text: Medical Intensive Care Progress Note July 07, 2018 Patient Name: Francisca Velasquez Patient Location: [id number]* Admission Date: 07/05/2018 Length of Stay: 2 [...] 109/86 109/52 Pulse: 99 (!) 139 Resp: Temp: 36.5 ?C (97.7 ?F) (!) 35.8 [...] (Res) Lew Last Rate: 100 mL/hr at 07/07/18 1129 [...] ? Signed: Tyler Santana MD, PGY-1 Pager: [phone] Date: July 07, 2018 Time: 1:34 PM [facility] STAFF PHYSICIAN NOTE OF PERSONAL INVOLVEMENT IN [...] PHERESED PLATELETS Collected: 07/07/2018 Status: F Source: [facility] 11:32 AM HEALTH SYSTEM REPOSITORY TYPE CODE TESTS RESULT OUT OF REFERENCE UNITS RANGE LAB PPHR(LOINC) Pheresed Plts Done unit 1 Performed By: #### PPHRS #### [place] [address] RBC PRODUCTS Collected: 07/07/2018 Status: F Source: [facility] 11:31 AM HEALTH SYSTEM REPOSITORY TYPE CODE TESTS RESULT OUT OF REFERENCE UNITS RANGE LAB UNIT1(LOINC ) Xmatch Unit 1 see below Result Comment: Compatible LAB UNIT2(LOINC) Xmatch Unit 2 see below Result Comment: Compatible Performed By: #### RBCPS #### [place] [address] HGB Collected: 07/07/2018 Status: F Source: [facility] 10:50 AM HEALTH SYSTEM REPOSITORY TYPE CODE TESTS RESULT OUT OF RANGE REFERENCE UNITS LAB HGBI(LOINC) 13.7-17.5 g/dL Low alert Hgb 5.9 Result Comment: Repeated AND verified Performed By: #### HGBI #### [place] [address] HGB Collected: 07/07/2018 Status: F Source: [facility] 3:00 AM HEALTH SYSTEM REPOSITORY TYPE CODE TESTS RESULT OUT OF RANGE REFERENCE UNITS LAB HGBI(LOINC) 13.7-17.5 g/dL Low Hgb 7.1 Performed By: #### HGBI #### [facility] [address] [place], [place] [address] HGB Collected: 07/06/2018 Status: F Source: [facility] 9:40 PM HEALTH SYSTEM REPOSITORY TYPE CODE TESTS RESULT OUT OF RANGE REFERENCE UNITS LAB HGBI(LOINC) 13.7-17.5 g/dL Low Hgb 7.5 Performed By: #### HGBI #### [facility] [address] [place] [id number] CONSULT PROG Observed: 07/06/2018 Status: COMPLETED Source: [facility] 4:48 PM CLINIC OTHER CAMPUS REPOSITORY HNO ID: [id number] Author: Tom Magallanes Service: Gastroenterology Author Type: [...] - He can be moved to [facility] when stable. Tom Magallanes MD MPH FRCPC HEMOGRAM Collected: 07/06/2018 Status: F Source: [facility] 3:00 PM HEALTH SYSTEM REPOSITORY TYPE CODE [...] MPV 9.8 Performed By: #### CBC1 #### [place] [address] ABDOMEN 1 VIEW Observed: 07/06/2018 Status: F Source: [facility] 1:45 PM HEALTH SYSTEM REPOSITORY Performed at [facility] APPROVED BY: Sanjeev Griffith MD EXAM TITLE: [...] normal. PROGRESS Observed: 07/06/2018 Status: COMPLETED Source: [facility] 1:17 PM CLINIC OTHER CAMPUS REPOSITORY HNO ID: [id number] Author: Luis Felipe Burch Jr. Service: Critical Care Author Type: Physician Type: Progress Notes Filed: 07/06/2018 9:36 PM Note Text: Medical Intensive Care Progress Note July 06, 2018 Patient Name: Francisca Velasquez Patient Location: [id number]/[facility]-481* Admission Date: 07/05/2018 Length of Stay: 1 [...] Atassi iv contrast (radiology procedure) INTRAVENOUS DIRECTED PRAlec Griffin (Res) MD Daniele And enteric contrast (radiology [...] ? Signed: Caio Meza MD, PGY-1 Pager: [phone] Date: July 06, 2018 Time: 1:18 PM Recommendations are not finalized until co-signed by Staff physician. [facility] STAFF PHYSICIAN NOTE OF PERSONAL INVOLVEMENT IN CARE I have reviewed the documentation by the resident and I personally participated in the monosn components. I have discussed the case and [...] PM CONSULT Observed: 07/06/2018 Status: COMPLETED Source: [facility] 12:40 PM [facility] OTHER CAMPUS REPOSITORY [facility] ID: [id number] Author: Nayely Plascencia Service: Urology Author Type: [...] Outpatient follow up with his Urologist in [place] - Call if he develops R flank pain, fevers > 38.5, or concern for sepsis - Will sign off, call with questions HISTORY OF PRESENT ILLNESS: The patient is a 62 year old male with a PMHx of ulcerative colitis, prior hx of nephrolithiasis, known to Urology in [place]. Has had stones treated with ESWL 3-4 [...] (thou/cmm) Date Value 07/05/2018 246 Urinalysis: Specific Correll, Ur Date Value Ref Range Status 07/05/2018 [...] for stone management with his Urologist in [place] - No further intervention, call if patient becomes febrile > 38.5, hypotensive (<90), or concern for sepsis from stone - D/w Dr. Plascencia Thank you for allowing me to participate in the care of your patient SIGNATURE: Julian Saini MD PATIENT NAME: Francisca Velasquez DATE: 07/06/2018 TIME: 12:40 PM PAGER: [phone] Attending Note I evaluated the patient and personally participated in the monson components. I agree with the resident's findings and plan as documented and have discussed the case and management of the patient's care with the resident. Signature: Nayely Plascencia DO, MBA Date: 07/07/2018 Time: 10:37 AM HGB Collected: 07/06/2018 Status: F Source: [facility] 10:00 AM HEALTH SYSTEM REPOSITORY TYPE CODE TESTS RESULT OUT OF RANGE REFERENCE UNITS LAB HGBI(LOINC) 13.7-17.5 g/dL Low Hgb 8.3 Performed By: #### HGBI #### [place] [address] HGB Collected: 07/06/2018 Status: F Source: [facility] 3:25 AM HEALTH SYSTEM REPOSITORY TYPE CODE TESTS RESULT OUT OF RANGE REFERENCE UNITS LAB HGBI(LOINC) 13.7-17.5 g/dL Low Hgb 8.9 Performed By: #### HGBI #### [place] [address] HCT Collected: 07/06/2018 Status: F Source: [facility] 3:25 AM HEALTH SYSTEM REPOSITORY TYPE CODE TESTS RESULT OUT OF RANGE REFERENCE UNITS LAB HCTI(LOINC) 40.1-51.0 % Low Hct 26.4 Performed By: #### HCTI #### [place] [address] BASIC PANEL Collected: 07/06/2018 Status: F Source: [facility] 3:25 AM HEALTH SYSTEM REPOSITORY TYPE CODE [...] Gap 12 Performed By: #### P8 #### [facility] [address] [place] [address] ACUTE GASTRIC BLOOD Observed: 07/05/2018 Status: F Source: [facility] 11:39 PM HEALTH SYSTEM REPOSITORY Performed at [facility] APPROVED BY: RUSLAN OJEDA MD Technique: Nuclear [...] bleeding. PROGRESS Observed: 07/05/2018 Status: COMPLETED Source: [facility] 11:27 PM CLINIC OTHER CAMPUS REPOSITORY HNO ID: [id number] Author: Bon Hunter (Rt) Service: Radiology Author Type: Ribbon Hanking Machine Operator Type: Progress Notes Filed: 07/05/2018 11:28 PM [...] No IV SITE: Inpatient - refer to LDA documentation POST EXAM PIV STATUS: Left in [...] safety can be found using this link: [email or web address] SIGNATURE: RT Elsa PATIENT NAME: Francisca Velasquez DATE: July 05, 2018 TIME: 11:27 PM PAGER/CONTACT #: RBC PRODUCTS Collected: 07/05/2018 Status: F Source: [facility] 10:30 PM HEALTH SYSTEM REPOSITORY TYPE CODE TESTS RESULT OUT OF REFERENCE UNITS RANGE LAB UNIT1(LOINC ) Xmatch Unit 1 see below Result Comment: Compatible LAB UNIT2(LOINC) Xmatch Unit 2 see below Result Comment: Compatible Performed By: #### RBCPS #### [facility] [address] [place] [address] HGB Collected: 07/05/2018 Status: F Source: [facility] 9:56 PM HEALTH SYSTEM REPOSITORY TYPE CODE TESTS RESULT OUT OF RANGE REFERENCE UNITS LAB HGBI(LOINC) 13.7-17.5 g/dL Low alert Hgb 7.0 Performed By: #### HGBI #### [place] [address] CT ABDOMEN AND PELVIS Observed: 07/05/2018 Status: F Source: [facility] [facility] WITH CONTRAST 9:43 PM HEALTH SYSTEM REPOSITORY Performed at [facility] APPROVED BY: HAWA THORNTON MD EXAMINATION: CT [...] ABO/RH CONFIRMATION Collected: 07/05/2018 Status: F Source: [facility] 6:45 PM HEALTH SYSTEM REPOSITORY TYPE CODE TESTS RESULT OUT OF REFERENCE UNITS RANGE LAB ABO([facility]) A ABO Group LAB NUTRITION ASSISTANT([facility]) RH Type Negative Performed By: #### ABOCK #### [place] [address] EKG (AK,AV,EU,FV,HL,JERMAIN,MM,SP) Observed: Status: F Source: [facility] 07/05/2018 5:49 PM CLINIC OTHER CAMPUS REPOSITORY NAME : FRANCISCA VELASQUEZ PID : [id number] : 1955 Gender : Male Race : ORD : [id number] Procedure Date : Jul 05 2018 17:49 Edit Date : Jul 06 2018 17:04 Diagnosis:SINUS TACHYCARDIA POSSIBLE INFERIOR INFARCT , AGE UNDETERMINED ABNORMAL ECG NO PREVIOUS ECGS AVAILABLE Confirmed by DavidMD arnold Vinayak A. ([id number]) on 07/06/2018 5:04:06 PM Ventricular Rate : 120 BPM Atrial Rate : 120 BPM P-R Interval : 152 ms QRS Duration : 86 ms Q-T Interval : 310 ms QTC Calculation(Bezet) : 438 ms P Bixby : 53 degrees R Bixby : -2 degrees T Bixby : 51 degrees Test Reason : Syncope Location : 48 : [place] [address] Overread By : MD Hernandez Vinayak A. Editted By : MD Hernandez Vinayak A. Referred By : RIC MELGAR Acquired by : Mary BOYER RBC PRODUCTS Collected: 07/05/2018 Status: F Source: [facility] 5:40 PM HEALTH SYSTEM REPOSITORY TYPE CODE TESTS RESULT OUT OF REFERENCE UNITS RANGE LAB UNIT1(LOINC ) Xmatch Unit 1 see below Result Comment: Compatible Performed By: #### RBCPS #### [place] [address] TYPE AND SCREEN Collected: 07/05/2018 Status: F Source: [facility] 5:40 PM HEALTH SYSTEM REPOSITORY TYPE CODE TESTS RESULT OUT OF REFERENCE UNITS RANGE LAB ABO(LOINC) A ABO Group LAB NUTRITION ASSISTANT(LOINC ) RH Type Negative LAB ABSCR(LOIN C) Antibody NEGATIVE Screen LAB BBCMT(LOIN C) Comment See Below Result Comment: Screen &/or Xmatch expires in 3 days at 12 midnight. Redraw patient at that time. Performed By: #### T&S #### [place] [address] HGB Collected: 07/05/2018 Status: F Source: [facility] 4:00 PM HEALTH SYSTEM REPOSITORY TYPE CODE TESTS RESULT OUT OF RANGE REFERENCE UNITS LAB HGBI(LOINC) 13.7-17.5 g/dL Low Hgb 7.5 Performed By: #### HGBI #### [place] [address] CRP Collected: 07/05/2018 Status: F Source: [facility] 4:00 PM HEALTH SYSTEM REPOSITORY TYPE CODE TESTS RESULT OUT OF RANGE REFERENCE UNITS LAB CRP3(LOINC) 0.00-0.30 mg/dL High CRP 0.83 Performed By: #### CRP3 #### [facility] [address] [place] [address] LACTIC ACID Collected: 07/05/2018 Status: F Source: [facility] 4:00 PM HEALTH SYSTEM REPOSITORY TYPE CODE TESTS RESULT OUT OF REFERENCE UNITS RANGE LAB LAC(LOINC) 0.4-2.0 mEq/L Lactic Acid 1.3 Performed By: #### LAC #### [place] [address] HAPTOGLOBIN Collected: 07/05/2018 Status: F Source: [facility] 4:00 PM HEALTH SYSTEM REPOSITORY TYPE CODE TESTS RESULT OUT OF REFERENCE UNITS RANGE LAB HAP(LOINC) 30.0-200.0 mg/dL Haptoglobin 55.1 Performed By: #### HAP #### [place] [address] LD,TOTAL BLOOD Collected: 07/05/2018 Status: F Source: [facility] 4:00 HEALTH SYSTEM REPOSITORY TYPE CODE TESTS RESULT OUT OF RANGE REFERENCE UNITS LAB LDH(LOINC) 84-246 U/L LD,Total 140 Blood Performed By: #### LDH #### [place] [address] HEPATIC PANEL Collected: 07/05/2018 Status: F Source: [facility] 4:00 PM HEALTH SYSTEM REPOSITORY TYPE CODE [...] Bilirubin 0.17 Performed By: #### HEPAP #### [place] [address] OPERATIVE NO Observed: 07/05/2018 Status: COMPLETED Source: [facility] 2:49 PM CLINIC OTHER CAMPUS REPOSITORY HNO ID: [id number] Author: Tom Magallanes Service: Gastroenterology Author Type: Physician Type: Operative Report Filed: 07/05/2018 3:26 PM Note Text: OPERATIVE/PROCEDURE REPORT LOG ID: [id number] Surgery/Procedure Date: 07/05/2018 Incision/Procedure Start Time: 3:11 PM Incision Close/Procedure End Time: 3:17 PM Surgeon(s)/Proceduralist(s) and Psych Rn(s): Surgeon(s) and Role: * Tom Magallanes - [...] 05, 2018 TIME: 3:22 PM PAGER/CONTACT #: [phone] HISTORY PHYSICAL Observed: 07/05/2018 Status: COMPLETED Source: [facility] 1:55 PM CLINIC OTHER CAMPUS REPOSITORY HNO ID: [id number] Author: Diego Fowler Service: Trauma Author Type: Physician Type: HANDP Filed: 07/06/2018 11:17 AM Note Text: TRAUMA HANDP [facility] ARRIVAL DATE: 07/05/2018 ARRIVAL TIME: 0319 CATEGORY: [...] compressions on his. EMS took him to [facility] where initial workup was completed. Per [...] VTE Prophylaxis/Anticoagulants 07/05/18329 vte pharmacologic prophylaxis contraindicated ([place], [place]) 07/05/18329 pneumatic compression stockings ([place]) 07/05/18329 activity - mobilize patient ([place]) TREATMENT/EVALUATION PLANS: 62-year-old male with history of [...] questions or concerns Mon-Fri 6a-5p please page [phone]. After 5pm and on Weekends and Holidays, please page [phone] if in ICU or [phone] if on RNF. SIGNATURE: Abdoulaye Sheriff PA-C PATIENT NAME: Francisca Velasquez DATE: July 05, 2018 TIME: 1:56 PM PAGER/CONTACT #: [phone] CONSULT Observed: 07/05/2018 Status: COMPLETED Source: [facility] 12:10 PM CLINIC OTHER CAMPUS REPOSITORY HNO ID: [id number] Author: Tom Magallanes Service: Gastroenterology Author Type: Physician Type: Consults Filed: 07/05/2018 3:21 PM Note Text: HPI: Francisca Velasquez is a 62 year old male who presents for GI bleed with syncope. This pt was seen in [place] ED and transferred to [facility]. He started having melena stool and BRBPR [...] MPH FRCPC Observed: 07/05/2018 Status: F Source: [facility] URINE 11:20 AM HEALTH SYSTEM REPOSITORY Test performed at [facility] No growth Performed By: #### C_URI #### [place] [address] PLAN OF CARE Observed: 07/05/2018 Status: COMPLETED Source: [facility] 9:52 AM CLINIC OTHER CAMPUS REPOSITORY HNO ID: [id number] Author: Shena Maradiaga (Pharmacist) Service: Pharmacy Author Type: Pharmacist Type: Plan of Care Filed: 07/05/2018 9:56 AM Note Text: MEDICATION HISTORY AND MEDICATION RECONCILIATION Patient Name:Nikolai Velasquez : 1955 Source of history:Pharmacy records: [facility] ([facility] [place] Medication Nonadherence Identified: No barriers noted The above information represents the best possible medication history: Yes Reconciliation completed? Yes All DIRECTOR ECONOMIC medications addressed by LIP Additional comments: Please note the following changes to the initial DIRECTOR ECONOMIC medication list: -Added aspirin (as noted in the HANDP) -Added clopidogrel -Added atorvastatin -Added tamsulosin -Added magnesium oxide See individual medications for additional notes/last fill dates. Allergies: ALLERGIES Allergen Reactions - Penicillin Anaphylaxis Preferred Pharmacy: [facility] [place] ([phone]) Current DIRECTOR ECONOMIC Medications: Prior to Admission medications as of [...] URINALYSIS ROUTINE Collected: 07/05/2018 Status: F Source: [facility] 9:40 AM HEALTH SYSTEM REPOSITORY TYPE CODE [...] Urine NEGATIVE LAB SPG(LOINC) 1.005-1.030 Specific 1.026 Correll, Ur LAB PHUR(LOINC 5.0-8.0 ) pH,Urine 5.0 [...] Cast 1.9 Performed By: #### URIN2 #### [facility] [address] [place] [address] HGB Collected: 07/05/2018 Status: F Source: [facility] 9:00 AM HEALTH SYSTEM REPOSITORY TYPE CODE TESTS RESULT OUT OF RANGE REFERENCE UNITS LAB HGBI(LOINC) 13.7-17.5 g/dL Low Hgb 9.3 Performed By: #### HGBI #### [facility] [address] [place] [id number] HGB A1C Collected: 07/05/2018 Status: F Source: [facility] 9:00 AM HEALTH SYSTEM REPOSITORY TYPE CODE TESTS RESULT OUT OF RANGE REFERENCE UNITS LAB A1C5(LOINC) 4.2-6.3 % Hgb A1c 4.6 Result Comment: Method is National Glycohemoglobin Standardization Program (NGSP) compliant. LAB ESAVG(LOINC) mg/dl Est. Avg Glucose 85 Performed By: #### HA1C #### [facility] [address] [place] [id number] VITAMIN B12 Collected: 07/05/2018 Status: F Source: [facility] 9:00 HEALTH SYSTEM REPOSITORY TYPE CODE TESTS RESULT OUT OF REFERENCE UNITS RANGE LAB B12(LOINC) 193-986 pg/mL Vitamin B12 202 Performed By: #### B12 #### [place] [id number] PROGRESS Observed: 07/05/2018 Status: COMPLETED Source: [facility] 8:20 AM CLINIC OTHER CAMPUS REPOSITORY HNO ID: [id number] Author: Luis Felipe Burch Jr. Service: Critical Care Author Type: Physician Type: Progress Notes Filed: 07/05/2018 7:18 PM Note Text: Medical Intensive Care Progress Note July 05, 2018 Patient Name: Francisca Velasquez Patient Location: [place] [address] [address]* Admission Date: 07/05/2018 Length of Stay: 0 [...] NSAIDs use. Presented to the ED from [facility] after having 4 bloody BM and [...] 133/67 Pulse: 100 94 97 104 Resp: 22 17 21 16 Temp: 36.6 ?C (97.9 ?F) 36.7 [...] g INTRAVENOUS PRN Jaz Linares (Res) Vipin pantoprazole 40 mg injection (PROTONIX) [...] management. Signed: Caio Meza MD, PGY-1 Pager: [phone] Date: July 05, 2018 Time: 8:20 AM Recommendations are not finalized until co-signed by Staff physician. [facility] STAFF PHYSICIAN NOTE OF PERSONAL INVOLVEMENT IN [...] services: 40 minutes excluding procedures. SIGNATURE: Luis Felpie Burch Jr, MD [facility] TIME of SERVICE: 7:03 PM EMERGENCY DEPARTMENT Observed: 07/05/2018 Status: F Source: [place] SUMMARY 6:06 AM [facility] REPOSITORY [facility] Medical Records Department [address] [place] [address] Emergency Department Summary 07/04/18 2241 MR#: [id number] Acct: [id number] Name: FRANCISCA VELASQUEZ Rep #: [id number] : 1955 62 From: Hortensia De Oliveira MD PCP: Erwin Bae MD Status: DEP ER - ER Visit Summary [...] Parveen Washington DO at 23:43 EST Tel [phone], Service support , Cervical Spine CT 07/04/18 [...] patient's initial evaluation. Patient was discussed with [facility] Dr. Melgar for transfer to the ICU at [facility] for emergent intervention of symptomatic lower GI bleed with hemodynamic instability. Patient was awake and alert with no focal neuro deficits during his ED course. Treatment Plan: [] Disposition: [] Impression: Lower GI bleed, syncopal episode, hemodynamic instability, superficial forehead lacerations This note was generated with The Box dictation software. It may contain incorrect words, [...] problems, contact your Primary Care Provider. Call [facility] ([phone]) or report to the closest Emergency Room. Call 911 if necessary. 07/05/18 0606 <Electronically signed by Hortensia De Oliveira MD> Date Hortensia De Oliveira MD Cosigner Signature (If Indicated): Date CC: Erwin Bae MD PROTIME Collected: 07/05/2018 Status: F Source: [facility] 4:20 AM HEALTH SYSTEM REPOSITORY TYPE CODE TESTS RESULT OUT OF REFERENCE UNITS RANGE LAB PTI(LOINC) 9.7-13.0 sec Prothrombin Time 10.5 LAB INR(LOINC) 0.90-1.30 INR 1.01 Result Comment: Note: Reference Range Change Vitamin K Antagonist (VKA) Therapeutic Range: INR 2 to 3 (Target INR of 2.5) Note: For patients treated with VKA drugs, such as warfarin, the [place] [employer] 2012 Guideline recommends [...] Chest 2012; 141:7S-47S Carter RA, et al. [facility] 2017; 70: 252-289 Performed By: #### PT #### [place] [address] HISTORY PHYSICAL Observed: 07/05/2018 Status: COMPLETED Source: [facility] 3:47 AM CLINIC OTHER CAMPUS REPOSITORY O ID: [id number] Author: Ric Melgar Service: Critical Care Author Type: Physician Type: HANDP Filed: 07/05/2018 3:57 AM Note Text: [facility] STAFF PHYSICIAN NOTE OF PERSONAL INVOLVEMENT IN [...] SIGNATURE: Ric Melgar MD [facility] PAGER: [phone] DATE of SERVICE: July 05, 2018 TIME of SERVICE: 3:57 AM HEMOGRAM Collected: 07/05/2018 Status: F Source: [facility] 3:30 AM HEALTH SYSTEM REPOSITORY TYPE CODE [...] MPV 9.7 Performed By: #### CBC1 #### [facility] [address] [place] [address] BASIC PANEL Collected: 07/05/2018 Status: F Source: [facility] 3:30 AM HEALTH SYSTEM REPOSITORY TYPE CODE [...] Gap 12 Performed By: #### P8 #### [facility] [address] [place] [address] MAGNESIUM BLOOD Collected: 07/05/2018 Status: F Source: [facility] 3:30 AM HEALTH SYSTEM REPOSITORY TYPE CODE TESTS RESULT OUT OF REFERENCE UNITS RANGE LAB MAG(LOINC) 1.6-2.6 mg/dL Magnesium Blood 2.0 Performed By: #### MAG #### [place] [address] PHOSPHORUS BLOOD Collected: 07/05/2018 Status: F Source: [facility] 3:30 AM HEALTH SYSTEM REPOSITORY TYPE CODE TESTS RESULT OUT OF REFERENCE UNITS RANGE LAB PHOS(LOINC 2.5-4.9 mg/dL ) Low Phosphorus Blood 2.2 Performed By: #### PHOS #### [place] [address] LACTIC ACID Collected: 07/05/2018 Status: F Source: [facility] 3:30 AM HEALTH SYSTEM REPOSITORY TYPE CODE TESTS RESULT OUT OF REFERENCE UNITS RANGE LAB LAC(LOINC) 0.4-2.0 mEq/L High alert Lactic Acid 2.1 Performed By: #### LAC #### [place] [address] Observed: 07/05/2018 Status: F Source: [facility] MRSA SCREEN 3:30 AM HEALTH SYSTEM REPOSITORY Test performed at [facility] No MRSA detected. Performed By: #### MRSA #### [place] [address] HISTORY PHYSICAL Observed: 07/05/2018 Status: COMPLETED Source: [facility] 3:09 AM CLINIC OTHER CAMPUS REPOSITORY HNO ID: [id number] Author: Elias Sanabria MD Service: Critical Care [...] the ED. ER/ hospital course: Presented From [facility] after he was brought there by EMS [...] in the 24 hours ending 07/05/18 0309 REVIEW ASSISTANT: Alert and oriented Awake, oriented, Follows [...] for input(s): VPH, VPC2, VPO2C, RESPHCO3, BASEX, J1IAYESM, PH, PCO2, RESPHCO3, BASEX, Z2OGYKQA in the last 168 hours. Invalid input(s): [...] ? Stress ulcer prophylaxis? Yes SIGNATURE: Elias Sanabira MD DATE: July 05, 2018 TIME: 3:09 AM PAGER/CONTACT #: [phone] SURGICAL TISSUE EXAM Observed: 07/05/2018 Status: F [facility]: [facility] [facility] 12:00 AM [facility] REPOSITORY Test performed at [place] [address] NAME: FRANCISCA VELASQUEZ REQUESTING: RIC MELGAR MD COPY TO: TOM MAGALLANES FINAL DIAGNOSIS: STOMACH, BIOPSY - GASTRIC MUCOSA [...] of 1 Performed By: #### SURG #### [place] [address] CBC W/DIFF, AUTOMATED Collected: 07/04/2018 Status: F Source: [place] 11:07 PM [facility] REPOSITORY TYPE CODE TESTS RESULT OUT [...] Lymph 1.99 Performed By: #### L100.0100 #### [facility] [address] [place], [place], [address] COMPREHENSIVE METABOLIC Collected: 07/04/2018 Status: F Source: [facility] 11:07 PM [facility] REPOSITORY TYPE CODE TESTS RESULT OUT OF [...] GAP Performed By: #### L500.4050, L501.4010 #### [facility] [address] [place], [place], [address] TROPONIN-I Collected: 07/04/2018 Status: F Source: [place] 11:07 PM [facility] REPOSITORY TYPE CODE TESTS RESULT OUT OF RANGE REFERENCE UNITS LAB L501.4010 <0.045 ng/mL Normal < 0.015 TROPONIN-I Result Comment: TROPONIN-I EXPECTED VALUES <0.045 Negative 0.045 - 0.590 Consistent with Cardiac Damage > OR = 0.600 Critical Value Not every elevated troponin is indicative of MS. These values should be used with clinical judgement in examining the patient's clinical picture for diagnosis. To establish a diagnosis of MS versus myocardial injury, there must be a demonstrated rise and/or fall in the troponin values, in addition to ischemic symptoms, EKG changes, new regional wall motion abnormality, and/or angiographical evidence. PLEASE NOTE: REFERENCE RANGES EDITED 17 Performed By: #### L500.4050, L501.4010 #### [facility] [address] [place], [address] LACTIC ACID Collected: 07/04/2018 Status: F Source: [place] 11:07 PM [facility] REPOSITORY Order Comment: Yes/No query for Sepsis Lactate Rule Y TYPE CODE TESTS RESULT OUT OF RANGE REFERENCE UNITS LAB L503.6005 0.4-2.0 mmol/L Normal LACTIC ACID 1.8 Performed By: #### L503.6005 #### [facility] [address] [place], [address] TYPE AND SCREEN Collected: 07/04/2018 Status: F Source: [place] 11:07 [facility] Order Comment: CMV NEG? N Number [...] NEGATIVE Screen Performed By: #### B101.7450 #### [facility] [address] [place], [place], [address] LRBC Collected: 07/04/2018 Status: F Source: [place] 11:07 PM [facility] REPOSITORY TYPE CODE TESTS RESULT OUT OF REFERENCE UNITS RANGE LAB U100.0200 [id number] TRANSFUSED PRODUCT: Leuko-Reduced Red Blood Cells COUNT: 1 Performed By: #### U100.0200 #### [facility] - refer to report for specific site RC Collected: 07/04/2018 Status: F Source: [place] 11:07 PM [facility] REPOSITORY TYPE CODE TESTS RESULT OUT OF REFERENCE UNITS RANGE LAB U100.0000 [id number] TRANSFUSED PRODUCT: T AND S with Crossmatch, Red Cells COUNT: 1 Performed By: #### U100.0000 #### [facility] - refer to report for specific site SPINE CERVICAL Observed: 07/04/2018 Status: F Source: [place] WITHOUT CONTRAS 10:41 PM [facility] REPOSITORY [facility] Imaging Services [address] [place] [address] Spine Cervical without Contras MR#: [id number] Acct: [id number] Name: FRANCISCA VELASQUEZ Rep #: [id number] : 1955 M 62 From: Parveen Washington DO PCP: Catalino ELIZABETH,Erwin Status: REG ER Study: Spine Cervical without Contras Date of Exam: 07/04/18 Exam# [id number] Ordering Dr: Hortensia De Oliveira MD STUDY: [...] Parveen Washington DO at 23:42 EST Tel [phone], Service support , CC: Erwin Bae MD; Hortensia De Oliveira MD Bread Oven Operator: Signed BRAIN/HEAD WITHOUT Observed: 07/04/2018 Status: F Source: [place] CONTRAST 10:41 PM [facility] REPOSITORY [facility] Imaging Services [address] [place] [address] Brain/Head without Contrast MR#: [id number] Acct: [id number] Name: FRANCISCA VELASQUEZ Rep #: [id number] : 1955 M 62 From: Parveen Washington DO PCP: Erwin Bae MD Status: REG ER Study: Brain/Head without Contrast Date of Exam: 07/04/18 Exam# [id number] Ordering Dr: Hortensia De Oliveira MD STUDY: [...] Parveen Washington DO at 23:43 EST Tel [phone], Service support , CC: Erwin Bae MD; Hortensia De Oliveira MD Bread Oven Operator: Signed PROTHROMBIN TIME W/INR Collected: 07/04/2018 Status: F Source: [place] 10:32 PM [facility] REPOSITORY TYPE CODE TESTS RESULT OUT OF RANGE REFERENCE UNITS LAB L300.4150 11.7-14.9 SECONDS Normal PROTIME 14.7 LAB L300.4200 Normal INR 1.2 Performed By: #### L300.3900, L300.4310 #### [facility] [address] [place], [place], [address] PARTIAL THROMBOPLAST Collected: 07/04/2018 Status: F Source: [place] TIME 10:32 PM [facility] REPOSITORY TYPE CODE TESTS RESULT OUT OF REFERENCE UNITS RANGE LAB L300.4310 24.1-36.2 Seconds Low PTT 23.1 Performed By: #### L300.3900, L300.4310 #### [facility] [address] [place], [address] HOSP Observed: 07/04/2018 Status: COMPLETED Source: [place] 12:00 AM CLINIC OTHER CAMPUS REPOSITORY Patient:Francisca Velasquez MRN: <[id number]> Height:5' 10.984(1.803 m) Weight:204 lb 12.9 oz [...] 40.1 Progress Notes (): Elias Sanabria MD, 07/05/2018 4:18 AM Attested Attestation signed by [...] the ED. ER/ hospital course: Presented From [facility] after he was brought there by EMS [...] in the 24 hours ending 07/05/18 0309 REVIEW ASSISTANT: Alert and oriented Awake, oriented, Follows [...] for input(s): VPH, VPC2, VPO2C, RESPHCO3, BASEX, P5EAHROB, PH, PCO2, RESPHCO3, BASEX, C6AFBDDK in the last 168 hours. Invalid input(s): [...] 05, 2018 TIME: 3:09 AM PAGER/CONTACT #: [phone] Ric Melgar MD 07/05/2018 3:57 AM Signed [facility] STAFF PHYSICIAN NOTE OF PERSONAL INVOLVEMENT IN [...] SIGNATURE: Ric Melgar MD [facility] PAGER: [phone] DATE of SERVICE: July 05, 2018 TIME of SERVICE: 3:57 AM Luis Felipe Burch Jr, MD 07/05/2018 7:18 PM Signed Medical Intensive Care Progress Note July 05, 2018 Patient Name: Francisca Velasquez Patient Location: [place] [address] [address]* Admission Date: 07/05/2018 Length of Stay: 0 [...] NSAIDs use. Presented to the ED from [facility] after having 4 bloody BM and [...] 133/67 Pulse: 100 94 97 104 Resp: 22 17 21 16 Temp: 36.6 ?C (97.9 ?F) 36.7 [...] oral liquid 80-120 mEq ORAL/FEEDING TUBE PRN Jazcristin Khandarshini (Res) Vipin potassium chloride iv piggyback 20 mEq/100 mL 20 mEq INTRAVENOUS PRN Jaz Katelynnyadarshini (Res) Vipin magnesium sulfate in water 2 [...] g INTRAVENOUS PRN Jaz Linares (Res) Vipin pantoprazole 40 mg injection (PROTONIX) [...] 0420 INR 1.01 BMP: Recent Labs 07/05/18 0330 GLUC 115* NA 144 K 4.0 CHLOR [...] management. Signed: Caio Meza MD, PGY-1 Pager: [phone] Date: July 05, 2018 Time: 8:20 AM Recommendations are not finalized until co-signed by Staff physician. [facility] STAFF PHYSICIAN NOTE OF PERSONAL INVOLVEMENT IN [...] Velasquez : 1955 Source of history:Pharmacy records: [facility] ([facility] [place] data Medication Nonadherence Identified: No barriers noted The above information represents the best possible medication history: Yes Reconciliation completed? Yes All DIRECTOR ECONOMIC medications addressed by LIP Additional comments: Please note the following changes to the initial DIRECTOR ECONOMIC medication list: -Added aspirin (as noted in the HANDP) -Added clopidogrel -Added atorvastatin -Added tamsulosin -Added magnesium oxide See individual medications for additional notes/last fill dates. Allergies: ALLERGIES Allergen Reactions - Penicillin Anaphylaxis Preferred Pharmacy: [facility] ([phone]) Current DIRECTOR ECONOMIC Medications: Prior to Admission medications as of [...] with syncope. This pt was seen in [place] ED and transferred to [facility]. He started having melena stool and BRBPR [...] MD 07/06/2018 11:17 AM Signed TRAUMA HANDP [facility] ARRIVAL DATE: 07/05/2018 ARRIVAL TIME: 0319 [...] compressions on his. EMS took him to [facility] where initial workup was completed. Per [...] VTE Prophylaxis/Anticoagulants 07/05/18329 vte pharmacologic prophylaxis contraindicated ([place], [place]) 07/05/18329 pneumatic compression stockings (il,az) 07/05/18329 activity - mobilize patient ([place]) TREATMENT/EVALUATION PLANS: 62-year-old male with history [...] Trauma Service Pager: For questions or concerns Mon-Sun 6a-5p please page [phone]. After 5pm and on Weekends and Holidays, please page [phone] if in ICU or [phone] if on RNF. SIGNATURE: Abdoulaye Sheriff PA-C PATIENT NAME: Francisca Velasquez DATE: July 05, 2018 TIME: 1:56 PM PAGER/CONTACT #: [phone] Previous Version Tom Magallanes MD MPH CPC 07/05/2018 3:26 PM Addendum OPERATIVE/PROCEDURE REPORT LOG ID: [id number] Surgery/Procedure Date: 07/05/2018 Incision/Procedure Start Time: 3:11 PM Incision Close/Procedure End Time: 3:17 PM Surgeon(s)/Proceduralist(s) and Psych Rn(s): Surgeon(s) and Role: * Tom Magallanes - [...] CP PATIENT NAME: Francisca Velasquez DATE: July 05, 2018 TIME: 3:22 PM PAGER/CONTACT #: [phone] Previous Version RT Elsa, Tech 07/05/2018 11:28 [...] No IV SITE: Inpatient - refer to [facility] documentation POST EXAM PIV STATUS: Left [...] safety can be found using this link: [email or web address] SIGNATURE: RT Elsa PATIENT NAME: Francisca [...] Outpatient follow up with his Urologist in [place] - Call if he develops R flank pain, fevers > 38.5, or concern for sepsis - Will sign off, call with questions HISTORY OF PRESENT ILLNESS: The patient is a 62 year old male with a PMHx of ulcerative colitis, prior hx of nephrolithiasis, known to Urology in [place]. Has had stones treated with ESWL 3-4 [...] 125/65 Pulse: 106 101 90 87 Resp: Temp: 36.7 ?C (98.1 ?F) 36.9 ?C [...] (thou/cmm) Date Value 07/05/2018 246 Urinalysis: Specific Correll, Ur Date Value Ref Range Status 07/05/2018 [...] for stone management with his Urologist in [place] - No further intervention, call if patient becomes febrile > 38.5, hypotensive (<90), or concern for sepsis from stone - D/w Dr. Plascencia Thank you for allowing me to participate in the care of your patient SIGNATURE: Julian Saini MD PATIENT NAME: Francisca Velasquez DATE: 07/06/2018 TIME: 12:40 PM PAGER: [phone] Attending Note I evaluated the patient and [...] 2018 Patient Name: Francisca Velasquez [id number] Admission Date: 07/05/2018 Length of Stay: 1 [...] ? Signed: Caio Meza MD, PGY-1 Pager: [phone] Date: July 06, 2018 Time: 1:18 PM Recommendations are not finalized until co-signed by Staff physician. [facility] STAFF PHYSICIAN NOTE OF PERSONAL INVOLVEMENT IN [...] Previous Version Tom Magallanes MD MPH CPC 07/06/2018 4:51 PM Signed SUBJECTIVE: Francisca Velasquez [...] - He can be moved to regular [facility]gers when stable. Tom Magallanes MD MPH FRCPC Luis Felipe Burch Jr, MD 07/07/2018 2:29 PM Signed Medical Intensive Care Progress Note July 07, 2018 Patient Name: Francisca Velasquez Patient Location: [place] [address] [address]* Admission Date: 07/05/2018 Length of Stay: 2 [...] mEq ORAL/FEEDING TUBE PRN Jaz Priyadarshini (Res) Lew potassium chloride iv piggyback 20 mEq/100 mL 20 mEq INTRAVENOUS PRN Jaz Priyadarshini (Res) Lew magnesium sulfate in water 2 g in sterile water 50 ml 2 g INTRAVENOUS PRN Jaz Priyadarshini (Res) Lew sodium glycerophosphate 45 mmol in NaCl 0.9% 250 mL (GLYCOPHOS) 45 mmol INTRAVENOUS PRN Jaz Priyadarshini (Res) Lew Last Rate: 31.25 mL/hr at 07/05/18 0606 45 mmol at 07/05/18 0606 calcium gluconate 4 g in NaCl 0.9% 250 mL 4 g INTRAVENOUS PRN Jaz Priyadarshini (Res) Lew lactated ringers infusion 100 mL/hr INTRAVENOUS CONTINUOUS Jaz Priyadarshini (Res) Lew Last Rate: 100 mL/hr at 07/07/18 1129 [...] ? Signed: Tyler Santana MD, PGY-1 Pager: [phone] Date: July 07, 2018 Time: 1:34 PM [facility] STAFF PHYSICIAN NOTE OF PERSONAL INVOLVEMENT IN [...] - He can be moved to [facility] when stable. Tom Magallanes MD MPH FRCPC Dilip Ibanez, RN, RN 07/08/2018 9:16 AM Signed CARE MANAGEMENT: ASSESSMENT AND DISCHARGE PLAN SERVICE DATE: 07/08/2018 SERVICE TIME: 9:07 AM PRIMARY CARE PHYSICIAN: No primary care provider on file. Dr Erwin [facility] Phone: None ADMISSION STATUS: Inpatient MEDICAL: Patient/Law Office Assistant Stated Goals: To return home to life [...] None Has the Patient Been in a Mcfp Facility in the Past 30 days? 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 SIGNATURE: Dilip Ibanez RN PATIENT NAME: Francisca Velasquez DATE: July 08, 2018 TIME: 9:07 AM PAGER/CONTACT #: [phone] Tom Magallanes MD MPH CPC 07/08/2018 10:54 AM Signed OPERATIVE/PROCEDURE REPORT LOG ID: [id number] Surgery/Procedure Date: 07/08/2018 Incision/Procedure Start Time: Incision Close/Procedure End Time: Surgeon(s)/Proceduralist(s) and Psych Rn(s): Surgeon(s) and Role: * Tom Magallanes - [...] 08, 2018 TIME: 10:50 AM PAGER/CONTACT #: [phone] Mary Grace Gr RN, RN 07/08/2018 10:56 AM Signed Nursing Progress Note Patient Name: Francisca Velasquez Patient Location: [place] [address] [address]* Daily Note:bedside colonostopy completed. See vitals from 1000 to current. Pt tolerated well. See attached sedation form. Pt now awake and answering questions but drowsy. Vitals stable. Will monitor This note was completed by: JOSE Tobar MD, 07/08/2018 1:30 PM Attested Attestation signed by Abdulaziz Cintron at 07/08/2018 1:48 PM [facility] STAFF PHYSICIAN NOTE OF PERSONAL INVOLVEMENT IN [...] 2018 Patient Name: Francisca Velasquez [id number] Admission Date: 07/05/2018 Length of Stay: 3 [...] 108/68 Pulse: 96 89 96 91 Resp: 20 Temp: 37.1 ?C (98.8 ?F) 37 [...] liquid 80-120 mEq ORAL/FEEDING TUBE PRN Jaz Erindarsreillyni (Res) Vipin potassium chloride iv piggyback 20 [...] Ke (Res) Danay Labs: CBC: Recent Labs 07/08/18 0930 07/08/18 [...] CT - Urology recommends outpatient management Signed: Caoi Meza MD, PGY-1 Pager: [phone] Date: July 08, 2018 Time: 1:24 PM [...] SB Capsule Endoscope (Olympus/Given) without difficulty. Lot#: [id number] Date of expiration: 09-26-2019 POST-PROCEDURE Post-capsule instructions reviewed and written information was provided to patient. Staff will pickle maker tomorrow SIGNATURE: Yuliet Rubio RN PATIENT NAME: Francisca Velasquez DATE: July 08, 2018 TIME: 6:50 PM CONTACT #: [phone] Yuliet Rubio RN, RN 07/08/2018 6:57 PM [...] given prior to ingestion of pill cam. #[id number]. Expiration 09-26-2019 Caiohan Meza MD, MD 07/09/2018 11:41 AM Attested Attestation signed by Abdulaziz Cintron at 07/09/2018 4:24 PM [facility] STAFF PHYSICIAN NOTE OF PERSONAL INVOLVEMENT IN [...] we will also consult neurology for further fdc antiplatlets therapy for the future Watch off ABx Ok to transfer to the floor Patient/Family Updated: Patient, Francisca Velasquez, updated regarding the goals of care, medical plan for the day, process consultant recommendations, medical disposition and current medical [...] 2018 Patient Name: Francisca Velasquez [id number] Admission Date: 07/05/2018 Length of Stay: 4 [...] 88 94 104 93 Resp: 16 15 21 12 Temp: (!) 35.7 ?C (96.3 ?F) [...] mL (GLYCOPHOS) 45 mmol INTRAVENOUS PRN Jaz Lockettni (Res) Vipin Last Rate: 31.25 mL/hr at [...] management Signed: Caio Meza MD, PGY-1 Pager: [phone] Date: July 09, 2018 Time: 11:35 AM Recommendations are not finalized until co-signed by Staff physician. Daniel Greenwood APRN.PIPE SMOKING MACHINE OFFBEARER 07/09/2018 3:15 PM Signed CONSULT PROGRESS NOTE [...] await capsule endoscopy results SIGNATURE: Daniel Greenwood APRN.PIPE SMOKING MACHINE OFFBEARER PATIENT NAME: Francisca Velasquez DATE: July 09, [...] HLD, former smoker who was admitted to [facility] as a level III trauma after [...] 09, 2018 TIME: 2:53 PM PAGER/CONTACT #: [phone] NSICU STAFF ADDENDUM Willard Torre MD Agree with [...] goals of care,?medical plan for the day, process consultant recommendations, medical disposition and current medical [...] DATE: 07/09/18 TIME: 5:18 PM PAGER/CONTACT #: [phone] Previous Version Caio Meza MD, MD 07/09/2018 [...] METABOLIC Collected: 06/05/2018 Status: F Source: [place] PROFIL 3:31 PM [facility] REPOSITORY TYPE CODE TESTS RESULT OUT OF [...] 9 Performed By: #### L500.4050, L501.9520 #### [facility] [address] [place], [address] THYROID STIM HORMONE Collected: 06/05/2018 Status: F Source: [place] (TSH) 3:31 PM [facility] REPOSITORY TYPE CODE TESTS RESULT OUT OF RANGE REFERENCE UNITS LAB L501.9520 0.358-3.74 uIU/mL Low TSH 0.34 Performed By: #### L500.4050, L501.9520 #### [facility] [address] [place], [place], [address] CBC W/DIFF, AUTOMATED Collected: 06/05/2018 Status: F Source: [place] 3:31 PM [facility] REPOSITORY TYPE CODE TESTS RESULT OUT OF [...] 1.95 Performed By: #### L100.0100, L101.9900 #### [facility] [address] [place], [place], [address] ERYTHROCYTE SED RATE Collected: 06/05/2018 Status: F Source: [place] 3:31 PM [facility] REPOSITORY TYPE CODE TESTS RESULT OUT OF RANGE REFERENCE UNITS LAB L102.0000 0-20 mm/hr Normal SED RATE 13 Performed By: #### L100.0100, L101.9900 #### [facility] [address] [place], [address] RAPID PLASMIN REAGIN Collected: 06/05/2018 Status: F Source: [place] (RPR) 3:31 PM [facility] REPOSITORY TYPE CODE TESTS RESULT OUT OF REFERENCE UNITS RANGE LAB L700.5000 NONREACTIVE NONREACTIVE Normal RPR Performed By: #### L700.5000 #### [facility] [address] [place], [address] ANTINUCLEAR ANTIBODIES Collected: 06/05/2018 Status: F Source: [place] DIRECT 3:31 PM [facility] REPOSITORY TYPE CODE TESTS RESULT OUT OF RANGE REFERENCE UNITS LAB L3100.5475 Negative Normal Negative KUNAL-DIRECT Result Comment: Performed at: [facility] [id number] Practice Physician: Malvin Mendoza PhD, Phone: [phone] Performed By: #### L3100.5475 #### [facility] (refer to report for specific site) refer to report for address and phone number PROTEIN ELECTROPH, S Collected: 06/05/2018 Status: F Source: [place] 3:31 PM [facility] REPOSITORY TYPE CODE TESTS RESULT OUT OF [...] scan will follow via computer, mail, or receiving associate delivery. LAB L3100.4340 . Normal NOTE: Comment Result Comment: Serum protein electrophoresis shows an increase in the percentage of the Beta Globulin fraction. Pattern may be attributed to conditions such as iron deficiency anemia, diabetes mellitus or a paraprotein with beta migration. Performed at: - [facility] [address] [id number] Practice Physician: Michael Ibanez MD, Phone: [phone] Performed at: [facility] [id number] Practice Physician: Malvin Mendoza PhD, Phone: [phone] Performed By: #### L3100.3450, L7000.5800 #### [facility] (refer to report for specific site) refer to report for address and phone number LYME ANTIBODIES,W BLOT Collected: 06/05/2018 Status: F Source: [place] 3:31 PM [facility] REPOSITORY TYPE CODE TESTS RESULT OUT OF [...] are those recommended by CDC/ASTPHLD. p23=Osp C, v33=pxonkfsaf Note: Sera from individuals with the following may cross react in the [place] Western Blot assays: other spirochetal diseases (periodontal disease, leptospirosis, relapsing fever, yaws, and pinta); connective autoimmune (Rheumatoid Arthritis and Systemic Lupus Erythematosus and also individuals with Antinuclear Antibody); other infections ([place] Spotted Fever; Kaila-Swanson Virus, and Cytomegalovirus). Performed By: #### L3100.3450, L7000.5800 #### [facility] (refer to report for specific site) refer to report for address and phone number PROTEIN ELECTRO.UR-RANDOM Collected: Status: F Source: [place] 06/05/2018 3:31 PM [facility] REPOSITORY TYPE CODE TESTS RESULT OUT OF RANGE REFERENCE UNITS LAB L3600.4100 Not Estab. mg/dL Normal 11.9 PROTEIN,UR LAB L3600.4200 . % Normal 45.1 ALBUMIN,UR LAB L3600.4300 . % Normal 2.3 UFYXF-2-REMI ,U LAB L3600.4400 . % Normal 10.7 LXXJM-6-GRMY ,U LAB L3600.4500 . % Normal BETA 23.6 GLOB,U LAB L3600.4600 . % Normal GAMMA 18.2 GLOB,U LAB L3600.4720 Normal M-SPIKE,U Result Comment: NOT OBSERVED LAB L3600.4800 . Normal NOTE Comment Result Comment: Protein electrophoresis scan will follow via computer, mail, or receiving associate delivery. Performed at: [facility] [id number] Practice Physician: aMlvin Mendoza PhD, Phone: [phone] Performed By: #### L3600.4000 #### [facility] (refer to report for specific site) refer to report for address and phone number CONSULTATION Observed: 05/31/2018 Status: F Source: [place] 10:56 AM [facility] REPOSITORY [facility] Medical Records Department [address] [place] [address] Consultation 05/29/18 1347 MR#: [id number] Acct: [id number] Name: FRANCISCA VELASQUEZ Rep #: [id number] : 1955 62 From: Jos Wong MD PCP: Catalino ELIZABETH,Erwin Status: DIS AUGUSTO Y Location: [place] [address] Reason for Consult Date of Consultation: 05/29/18 [...] LEAD ELECTROCARDIOGRAM Observed: 05/30/2018 Status: F Source: [place] 9:57 AM [facility] REPOSITORY [facility] Cardiovascular Services [address] [place] [address] 12 Lead EKG 05/28/18 1305 MR#: [id number] Acct: [id number] Name: FRANCISCA VELASQUEZ Rep #: [id number] : 1955 62 From: Marc Gunn MD Attending Dr: Tania Love MD Status: DIS AUGUSTO Ordering Dr: John Padilla MD Date: 05/28/18 Location: [facility] Sex: M C Admitted: 05/28/18 Test Reason [...] ECG Confirmed by MARC GUNN MD ([id number]), production editor ELMER ANTONY ([id number]) on 05/30/2018 9:56:50 AM Referred By: Edith Rodriguez Confirmed By:MARC GUNN MD 05/30/18 0956 Date Marc Gunn MD CC: Tania Love MD; Erwin Bae MD; Edith Rodriguez; John Padilla MD Signed DISCHARGE SUMMARY Observed: 05/29/2018 Status: F Source: [place] 5:15 PM [facility] REPOSITORY [facility] Medical Records Department [address] [place] [address] Discharge Summary 05/29/18 1138 MR#: [id number] Acct: [id number] Name: FRANCISCA VELASQUEZ Rep #: [id number] : 1955 62 From: Blank DAVISON PCP: Erwin Bae MD Status: DIS AUGUSTO Y Location: [place] [address] ADDENDUM by SAMAN Lloyd on 05/29/18 at [...] Jorge Ellis MD at 13:44 EDT Tel [phone], Service support , Brain MRI 05/28/18 14:58 [...] 250 mg PO DAILY 05/28/18 Green Tea [place] Extract [Green Tea Extract] 150 mg PO DAILY 05/28/18 L.acidoph,Paracasei, B.lactis [Probiotic] 1 each PO PRN PRN 05/28/18 Melatonin/Pyridoxine [Melatonin 5 mg Tablet] 5 mg PO QHS 05/28/18 Multivitamin [Daily Multiple Vitamin] 1 tab PO DAILY 05/28/18 Carlton-3 Fatty Acids/Fish Oil [Fish Oil 1,000 mg [...] Diagnoses (Choose all that apply): None applicable <Paintsil,Carlock - Last Filed: 05/29/18 17:15> Discharge Date [...] Diet Code Visit OBSV E AND M: 34721 Observation care discharge 05/29/18 1144 <Electronically signed by Blank DAVISON> Date Blank DAVISON Cosigner Signature (if applicable): Date CC: SAMAN Lloyd; Tania Love MD; Erwin Bae MD Signed DISCHARGE INSTRUCTION Observed: 05/29/2018 Status: F Source: [place] 11:40 AM [facility] REPOSITORY [facility] Medical Records Department [address] [place] [address] Instructions for Home/Discharge Instructions 05/29/18 1135 MR#: [id number] Acct: [id number] Name: FRANCISCA VEALSQUEZ Rep #: [id number] : 1955 62 From: Blank DAVISON PCP: [...] 250 mg PO DAILY 05/28/18 Green Tea [place] Extract [Green Tea Extract] 150 mg PO DAILY 05/28/18 L.acidoph,Paracasei, B.lactis [Probiotic] 1 each PO PRN PRN 05/28/18 Melatonin/Pyridoxine [Melatonin 5 mg Tablet] 5 mg PO QHS 05/28/18 Multivitamin [Daily Multiple Vitamin] 1 tab PO DAILY 05/28/18 Carlton-3 Fatty Acids/Fish Oil [Fish Oil 1,000 mg Capsule] 1,000 mg PO DAILY 05/28/18 Tamsulosin HCl [Flomax] 0.4 mg PO DAILY 05/28/18 Tyrosine [l-Tyrosine] 500 mg PO DAILY 05/28/18 Ubidecarenone [Co Q-10] 100 mg PO DAILY 10/16/18 Atorvastatin Calcium 40 mg PO QHS #30 [...] 05/29/18 05/29/18 1140 <Electronically signed by Blank Lloyd NP-C> Date Blank DAVISON CC: Erwin Bae MD; Jos Wong MD LIPID PROFILE Collected: 05/29/2018 Status: F Source: [place] 6:42 AM [facility] REPOSITORY TYPE CODE TESTS RESULT OUT OF [...] VLDL 17 Performed By: #### L500.4100 #### [facility] [address] [facility] [place], [address] ECHOCARDIOGRAM COMPLETE Observed: 05/28/2018 Status: F Source: [place] 6:03 PM [facility] REPOSITORY [facility] Cardiovascular Services [address] [place] [address] Echo Complete 05/28/18 1527 MR#: [id number] Acct: [id number] Name: FRANCISCA VELASQUEZ Rep #: [id number] : 1955 62 From: Gordy Perdomo MD Attending Dr: Edith Rodriguez Status: ADM AUGUSTO Ordering Dr: Edith Rodriguez MD Date: 05/28/18 Location: [facility] Sex: M C Admitted: 05/28/18 Reason For [...] Physician: Erwin Bae Performed By: Radha Rios, RDLYLA, RVT 05/28/181801 Date Gordy Perdomo MD CC: Erwin Bae MD; Edith Rodriguez Date Dictated: 05/28/18 1527 Date Transcribed: 05/28/181801 Bread Oven Operator: Signed MRA HEAD ONLY WITHOUT Observed: 05/28/2018 Status: F Source: [place] CONTRAST 5:45 PM [facility] REPOSITORY [facility] Imaging Services [address] [place] [address] MRA Head ONLY without Contrast MR#: [id number] Acct: [id number] Name: FRANCISCA VELASQUEZ Rep #: [id number] : 1955 M 62 From: Cameron Rosenbaum MD PCP: Erwin Bae MD Status: ADM AUGUST[place] Study: MRA Head ONLY without Contrast Date of Exam: 05/28/18 Exam# [id number] Ordering Dr: Edith Rodriguez MD STUDY: MRA OF THE HEAD WITHOUT CONTRAST REASON FOR EXAM: Male, 62 years old. CVA TECHNIQUE: 3-D teyy-cq-qwxzuw (TOF) imaging was performed with MIPs. The [...] There is no demonstrated aneurysm of the solomon of [place]. There is no major vessel occlusion or hemodynamically significant stenosis. There is no demonstrated abnormality of the visualized brain. MRI/MRA Head ONLY without Contrast IMPRESSION: Narrowed A1 segment of the left anterior cerebral artery No other significant abnormality Electronically Signed: Cameron Rosenbaum MD at 20:57 EDT , Service support , CC: Erwin Bae MD; Edith Rodriguez Bread Oven Operator: Signed EMERGENCY DEPARTMENT Observed: 05/28/2018 Status: F Source: [place] SUMMARY 4:23 PM [facility] REPOSITORY [facility] Medical Records Department [address] [place] [address] Emergency Department Summary 05/28/18 1420 MR#: [id number] Acct: [id number] Name: FRANCISCA VELASQUEZ Rep #: [id number] : 1955 62 From: John Padilla MD [...] 1. TIA. This note was generated with The Box dictation software. It may contain incorrect words, [...] problems, contact your Primary Care Provider. Call [facility] ([phone]) or report to the closest Emergency Room. Call 911 if necessary. 05/28/18 2828 <Electronically signed by John Padilla MD> Date John Padilla MD Cosigner Signature (If Indicated): Date CC: Erwin Bae MD HISTORY AND PHYSICAL Observed: 05/28/2018 Status: F Source: [place] EXAM 3:12 PM [facility] REPOSITORY [facility] Medical Records Department [address] [place] [address] History and Physical 05/28/18 1456 MR#: [id number] Acct: [id number] Name: FRANCISCA VELASQUEZ Rep #: [id number] : 1955 62 From: Edith Rodriguez MD PCP: Erwin Bae MD Status: ADM AUGUSTO Y Location: [place] [address] Problem List (1) Benign prostatic hyperplasia Status: [...] Jorge Ellis MD at 13:44 EDT Tel [phone], Service support , Assessment/Plan This is a [...] Subcu Lovenox. This note was generated with The Box dictation software. It may contain incorrect words, spelling, and punctuation that were not noted in checking the note before signing. Code Visit OBSV E AND M: 42868 Initial observation care L2 05/28/18 1512 <Electronically signed by Edith Rodriguez MD> Date Edith Rodriguez MD Cosigner Signature: Date (if applicable) CC: Erwin Bae MD; Edith Rodriguez Signed BRAIN WITHOUT Observed: 05/28/2018 Status: F Source: [place] CONTRAST 2:58 PM [facility] REPOSITORY [facility] Imaging Services [address] [place] [address] Brain without Contrast MR#: [id number] Acct: [id number] Name: FRANCISCA VELASQUEZ Rep #: [id number] : 1955 M 62 From: Cameron Rosenbaum MD PCP: Erwin Bae MD Status: ADM [place]UGUST[place] Study: Brain without Contrast Date of Exam: 05/28/18 Exam# [id number] Ordering Dr: Edith Rodriguez MD STUDY: MRI [...] , CC: Erwin Bae MD; Edith Rodriguez Bread Oven Operator: Signed MRA NECK WITH AND W/O Observed: 05/28/2018 Status: F Source: [place] CONTRAST 2:58 PM [facility] REPOSITORY [facility] Imaging Services [address] [place], [place] [address] [place] [address] MRA Neck WITH and W/O Contrast MR#: [id number] Acct: [id number] Name: FRANCISCA VELASQUEZ Rep #: [id number] : 1955 M 62 From: Cameron Rosenbaum MD PCP: Erwin Bae MD Status: ADM [place]UGUST[place] Study: MRA Neck WITH and W/O Contrast Date of Exam: 05/28/18 Exam# [id number] Ordering Dr: Edith Rodriguez MD STUDY: MRA NECK WITH AND WITHOUT CONTRAST REASON FOR EXAM: Male, 62 years old. Stroke TECHNIQUE: 3-D mprw-xl-zllech (TOF) imaging was performed in an 1.5 [...] , CC: Erwin Bae MD; Edith Rodriguez Bread Oven Operator: Signed BEDSIDE GLUCOSE Collected: 05/28/2018 Status: F Source: [place] 1:31 PM [facility] REPOSITORY TYPE CODE TESTS RESULT OUT OF RANGE REFERENCE UNITS LAB L501.080 70-110 mg/dL Normal BEDSIDE GLU 98 Result Comment: MANAGEMENT OF PATIENT CARE PER NURSING PROTOCOL Performed By: #### L501.080 #### [facility] [place] [address] CBC W/DIFF, AUTOMATED Collected: 05/28/2018 Status: F Source: [place] 1:05 PM [facility] REPOSITORY TYPE CODE TESTS RESULT OUT OF [...] Lymph 1.39 Performed By: #### L100.0100 #### [facility] [address] [place], [address] BASIC METABOLIC Collected: 05/28/2018 Status: F Source: [place] PROFILE (BMP) 1:05 PM [facility] REPOSITORY TYPE CODE TESTS RESULT OUT OF [...] 9 Performed By: #### L500.2500, L501.4010 #### [facility] [address] [place], [address] TROPONIN-I Collected: 05/28/2018 Status: F Source: [place] 1:05 PM [facility] REPOSITORY TYPE CODE TESTS RESULT OUT OF RANGE REFERENCE UNITS LAB L501.4010 <0.045 ng/mL Normal < 0.015 TROPONIN-I Result Comment: TROPONIN-I EXPECTED VALUES <0.045 Negative 0.045 - 0.590 Consistent with Cardiac Damage > OR = 0.600 Critical Value Not every elevated troponin is indicative of MS. These values should be used with clinical judgement in examining the patient's clinical picture for diagnosis. To establish a diagnosis of MS versus myocardial injury, there must be a demonstrated rise and/or fall in the troponin values, in addition to ischemic symptoms, EKG changes, new regional wall motion abnormality, and/or angiographical evidence. PLEASE NOTE: REFERENCE RANGES EDITED 17 Performed By: #### L500.2500, L501.4010 #### [facility] [address] [facility] [place], [place], [address] PROTHROMBIN TIME W/INR Collected: 05/28/2018 Status: F Source: [place] 1:05 PM [facility] REPOSITORY TYPE CODE TESTS RESULT OUT OF RANGE REFERENCE UNITS LAB L300.4150 11.7-14.9 SECONDS Normal PROTIME 11.9 LAB L300.4200 Normal INR 0.9 Performed By: #### L300.3900, L300.4310 #### [facility] [address] [facility] [place], [address] PARTIAL THROMBOPLAST Collected: 05/28/2018 Status: F Source: [place] TIME 1:05 PM [facility] REPOSITORY TYPE CODE TESTS RESULT OUT OF RANGE REFERENCE UNITS LAB L300.4310 24.1-36.2 Seconds Normal PTT 27.0 Performed By: #### L300.3900, L300.4310 #### [facility] [address] [place], [address] BRAIN/HEAD WITHOUT Observed: 05/28/2018 Status: F Source: [place] CONTRAST 12:40 PM [facility] REPOSITORY [facility] Imaging Services [address] [place] [address] Brain/Head without Contrast MR#: [id number] Acct: [id number] Name: FRANCISCA VELASQUEZ Rep #: [id number] : 1955 M 62 From: Jorge Ellis MD PCP: Erwin Bae MD Status: REG ER Study: Brain/Head without Contrast Date of Exam: 05/28/18 Exam# [id number] Ordering Dr: John Padilla MD STUDY: CT [...] Jorge Ellis MD at 13:44 EDT Tel [phone], Service support , CC: Erwin Bae MD; John Padilla MD Bread Oven Operator: Signed ALLERGIES ALLERGIES DATE TYPE / CODE NAME / CODE REACTION SEVERITY SOURCE 07/05/2018 DRUG PENICILLIN ANAPHYLAXIS [facility] INGREDI/419 Other [place] 122526([facility] Repository ED CT) 05/28/2018 Drug Penicillins/F001 Anaphylaxis Unknown [place] Allergy/416 475499(RXNORM) [facility] 607149([facility] ED CT) Repository NG/[id number] PENICILLIN [facility] 6([facility] CT) Repository ENCOUNTERS ENCOUNTERS ADMIT/DISCHARGE ACCOUNT NUMBER ADMITTING ENCOUNTER LOCATION SOURCE CLASS 09/04/2018 [id number] Ambulatory [facility] ding:MTLAB Repository 08/30/2018 [id number] Ambulatory [facility] ding: Repository 07/23/2018 [id number] [facility] ding:US Repository 07/15/2018 [id number] Ambulatory [facility] ding:LAB Repository 07/05/2018/07/11/20 [id number] [facility], Inpatient [address] Other [place] Repository 07/05/2018/07/11/20 [id number] [facility], Inpatient [place] [facility] 18 [facility] MEDICAL [facility]ository [facility]: 7105Bed: 02 07/04/2018/07/05/20 [id number] Emergency [address] ding:ED Repository 06/05/2018 [id number] Ambulatory [facility] ding:MTLAB Repository 05/28/2018/05/29/20 [id number] [facility], Ambulatory [address] ding:PCURoom Repository : EVK108Elg: 1 05/28/2018 [id number] [facility] BMSBuilding: [place] Ghasem [facility] Repository 05/28/2018 [id number] [facility], Ambulatory BMSBuilding: [place] [facility] Repository 05/28/2018/05/29/20 [id number] Ambulatory BMSBuilding: [place] 18 [facility] Repository PAYERS PAYERS ENCOUNTER GUARANTOR PAYER SUBSCRIBER SOURCE 09/04/2018 FRANCISCA Hsieh Primary FRANCISCA Hsieh [place] [id number] Insurance:AETNAPolicy WILLIAMSDOB: Community [facility] ST[place]HA[place], [facility]: [id number] [address]Elf: [id number] Repository Date:3337-67-35IC [address]OX () [address] [address]DL: 09/04/2018 Secondary NOT GIVENUNK [place] Insurance:SELF PAY [facility] Number: Effective Repository Date:2018-09-04 08/30/2018 FRANCISCA Hsieh Primary FRANCISCA Hsieh [place] [id number] Insurance:AETNAPolicy WILLIAMSDOB: [facility] DAVID STWDARCIER, Number: [id number] [place] [address]Dhp: [id number] Repository Date:9201-40-31CZ [address]OX () [address] [place] [address]IP: 08/30/2018 Secondary NOT GIVENUNK [place] Insurance:SELF PAY [facility] Number: Effective Repository Date:2018 07/23/2018 FRANCISCA Hsieh Primary FRANCISCA Argueta [id number] Insurance:AETNAPolicy WILLIAMSDOB: [facility] DAVID STK[place], Number: [id number] Hospital [place] [address]Lht: [id number] Repository Date:0254-34-15PR [address] () [address] [address]QZ: 07/23/2018 Secondary NOT GIVENUNK [place] Insurance:SELF PAY [facility] Number: Effective Repository Date:2018-07-18 07/15/2018 FRANCISCA Hsieh Primary FRANCISCA Hsieh [place] [id number] Insurance:AETNAPolicy WILLIAMSDOB: [facility] DAVID STWDARCIER, Number: [id number] [place] [address]Pey: [id number] Repository Date:0992-53-70AF [address]OX () [place] [address]VH: 07/15/2018 Secondary NOT GIVENUNK [place] Insurance:SELF PAY [facility] Number: Effective Repository Date:2018-07-15 07/05/2018 IRINA Primary FRANCISCA Hsieh [facility] WILLIAMSDOB: Insurance:AETNA WILLIAMSDOB: Health System CHOICE POS IIPolicy [id number] Repository [facility], Number: [id number]: [id number] Date: () 07/04/2018 IRINA Primary FRANCISCA Hsieh [place] [id number] Insurance:AETNAPolicy WILLIAMSDOB: [facility], Number: [id number] [place] [address]Lxx: [id number] Repository Date:8841-19-64SQ BOX () [place], [place] [address]BB: 07/04/2018 Secondary NOT GIVENUNK [place] Insurance:SELF PAY [facility] Number: Effective Repository Date:2018-07-04 06/05/2018 IRINA Primary FRANCISCA Hsieh [place] [id number] Insurance:AETNAPolicy WILLIAMSDOB: [facility], Number: [id number] [place] [address]Cay: [id number] Repository Date:5573-90-32NC BOX () [address], [place] [address]TZ: 06/05/2018 Secondary NOT GIVENUNK [place] Insurance:SELF PAY [facility] Number: Effective Repository Date:2018-06-05 05/28/2018 IRINA Primary FRANCISCA Hsieh [place] [id number] Insurance:AETNAPolicy WILLIAMSDOB: [facility] [place], Number: [id number] [place] [address]Bzt: [id number] Repository Date:3163-44-16AA BOX (HP) [address] [place] [address]LD: 05/28/2018 Secondary NOT GIVENUNK [place] Insurance:SELF PAY [facility] Number: Effective Repository Date:2018-05-28 05/28/2018 FRANCISCA Hsieh Primary FRANCISCA V[address]ASQUEZ426 Insurance:AETNAPolicy WILLIAMSDOB: Community DAV[facility] [place], Number: [id number] [address]Kvp: [id number] Repository Date:2184-07-01BG BOX (HP) [address] [address]UF: 05/28/2018 Secondary NOT GIVENUNK [place] Insurance:SELF PAY [facility] Number: Effective Repository Date:2018-05-28 05/28/2018 FRANCISCA Hsieh Primary FRANCISCA VELASQUEZ426 Insurance:AETNAPolicy WILLIAMSDOB: Community [facility] [place], Number: [id number] Medical Center-[facility] [address]Gjg: [id number] Repository Date:0318-12-76TY BOX (HP) [address]19QD [place] [address]VQ: 05/28/2018 Secondary NOT GIVENUNK [place] Insurance:SELF PAY [facility] Number: Effective Repository Date:2018-05-28 05/28/2018 FRANCISCA Hsieh Primary FRANCISCA V[address]ASQUEZ426 Insurance:AETNAPolicy WILLIAMSDOB: Community [facility] [place], Number: [id number] Hospital [place] [address]Dgd: [id number] Repository Date:6265-19-97LI BOX (HP) [address] [address]YR: 05/28/2018 Secondary NOT GIVENUNK [place] Insurance:SELF PAY [facility] Number: Effective Repository Date:2018-05-28
== END ==
PROVIDERS: Family Provider Family Medicine; PCP Family Medicine; Referring Provider Family Medicine; Visit Provider Family Medicine
DX: J22 Unspecified acute lower respiratory infection (principal); L04.0 Acute lymphadenitis of face, head and neck
CPT/HCPCS: 36415; 71046; 85025; 86140

== ENCOUNTER → 2018-09-12 13:48 | Outpatient (CLI) | payer OTHER, SELFPAY ==
[2018-09-12 09:12] VITALS: BMI 27.8
--- NOTE | 2018-09-12 13:50 | CT_ITS ---
STUDY: CTA CHEST REASON FOR EXAM: Male, 63 years old. Mediastinal mass RADIATION DOSAGE (If Supplied By Facility): CTDIvol = ( 16.73 ) mGy, DLP = ( 520.89 ) mGycm TECHNIQUE: The examination was performed with the intravenous administration of 100 ml of Isovue 370 contrast material. Post-processing of the angiographic images was performed, with multiplanar reformation and 3D reconstruction. Individualized dose optimization techniques were used for this CT. COMPARISON: None. FINDINGS: TRACHEA, THYROID, ESOPHAGUS: No tracheomalacia,stricture or wall thickening. The right lobe of the thyroid gland is normal. The left lobe is enlarged and approximates 10.2 cm in length by 4.7 cm in the anteroposterior dimension and extends inferiorly down into the posterior and left margin of the distal trachea terminating at about the level of the aortic arch. It displaces the trachea to the right and has multiple foci of calcifications within it. CARDIOVASCULAR SYSTEM: The thoracic aorta is normal with no focal aneurysm or dissection. There are no abnormal calcifications/metallic densities at the aortic root. The pulmonary trunk and the left and right pulmonary arteries and their lobar and segmental branches all fail to show any abnormal and persistent filling defects to indicate the presence of pulmonary embolism. The heart is normal in size with no demonstration of any right ventricular strain. No developmental vascular anomalies are seen. MALENA AND LYMPH NODES: No hilar masses and no mediastinal, hilar, axillary or supraclavicular adenopathy LUNGS, LOW-ATTENUATION: No traction bronchiectasis, honeycombing,emphysema, lung cysts or cavitations LUNGS, HIGH ATTENUATION: No nodules/masses, ground glass opacities/consolidations or increased interstitial markings LUNGS, MOSAIC/CRAZY PAVING: Not evident PLEURA AND CHEST WALL: No plural effusions, pneumothoraces,rib fractures or any osteolytic/osteoblastic changes . The soft tissue chest wall including the breasts are normal UPPER ABDOMEN: Gallstones CT/CTA Chest W/WO Contrast IMPRESSION: Normal CTA chest examination, without a demonstrated pulmonary embolism or arterial dissection. A markedly enlarged (10.2 x 4.7 cm) left lobe of the thyroid gland which extends inferiorly to terminate around the level of the arch of the aorta. The left lobe also displaces the trachea to the right. Gallstones. Electronically Signed: Osito Chang MD at 3:14 EST Tel , Service support ,
[2018-09-12 14:05] LABS: CREATININE FINGERSTICK 1.3 mg/dL (0.70-1.30)
== END ==
PROVIDERS: Family Provider Family Medicine; PCP Family Medicine; Referring Provider Family Medicine; Visit Provider Family Medicine
DX: D49.89 Neoplasm of unspecified behavior of other specified sites (principal)
CPT/HCPCS: 71275; Q9967

== ENCOUNTER → 2018-09-18 15:46 | Outpatient (CLI) | payer OTHER, SELFPAY ==
--- NOTE | 2018-09-18 13:15 | ASPS_PTH ---
PATIENT: FRANCISCA VELASQUEZ LOC: [facility] U#:[id number] AGE/SX: 69/M ROOM: RE09/18/[address]: Dr. Tee Martin MD : 1955 BED: DIS: SPEC #: [id number] RECD: 09/18/18 15:45 STATUS: SHAYLA BENNIE #: [id number] CHELSEA: 09/18/18 13:[address]: Tee Martin DEPT: CYTOLOGY RECD BY: Cal Wilson ENTERED: 09/19/18 10:22 SP TYPE: ASPIRATION OTHR DR: Dr. Erwin Bae MD Tissues: A - Thyroid gland, NOS B - Thyroid gland, NOS Procedures: Special Stain Group II Cytology Other HEADER OPERATION: Left thyroid FNA x2 PRE-OP DIAGNOSIS: Multiple thyroid nodules TISSUE SUBMITTED: A - Left superior thyroid 6 slides, B - Left inferior thyroid 6 slides DIAGNOSIS CYTOLOGY A. Left superior thyroid nodule, FNA (smears): Consistent with benign follicular nodule with focal cystic changes. Adequate for evaluation. See comment. B. Left inferior thyroid nodule, FNA (smears): Consistent with benign follicular nodule. Adequate for evaluation. See comment. SJ:rg 09/20/18 COMMENT A & B. The smears are cellular and the lesions may represent adenomatoid nodules. Correlation with clinical, radiologic findings and appropriate follow up are necessary. CYTOLOGY STUDY Slides are reviewed. CYTOLOGY GROSS A - Received are six smears labeled with the patient's name and designated per the requisition as left superior thyroid. Submitted for staining. B - Received are six smears labeled with the patient's name and designated per the requisition as left inferior thyroid. Submitted for staining. 09/19/18 TC:5 CPT: 33192 x2
[2018-09-18 13:20] VITALS: BMI 27.8
== END ==
PROVIDERS: Family Provider Family Medicine; PCP Family Medicine; Referring Provider Surgery; Visit Provider Surgery
DX: E04.2 Nontoxic multinodular goiter (principal)
CPT/HCPCS: 88161; 88313

== ENCOUNTER → 2018-09-27 11:22 | Outpatient (CLI) | payer OTHER, SELFPAY ==
[2018-09-18 13:20] VITALS: BMI 27.8
--- NOTE | 2018-09-27 11:31 | US_ITS ---
STUDY: SUPERFICIAL ULTRASOUND - CERVICAL REGION. REASON FOR EXAM: Male, 63 years old. Bilateral neck masses. TECHNIQUE: A superficial ultrasound was performed with real-time and static alamo-scale imaging. COMPARISON: None. FINDINGS: There is a 2 cm x 0.7 cm x 2 cm hypoechoic solid nodule in the right submandibular region most likely representing a lymph node. US/Head/Neck Soft Tissue IMPRESSION: Findings suggestive of a 2 cm x 0.7 cm x 2 cm right cervical lymph node. Electronically Signed: Jorge Ellis MD at 10:04 EST , Service support ,
== END ==
PROVIDERS: Family Provider Family Medicine; PCP Family Medicine; Referring Provider Family Medicine; Visit Provider Family Medicine
DX: R59.0 Localized enlarged lymph nodes (principal)
CPT/HCPCS: 76536

== ENCOUNTER → 2019-01-17 | Outpatient (CLI) | payer OTHER, SELFPAY ==
[2018-10-23 14:17] VITALS: BMI 27.8
== END | disposition home or self-care (01) ==
LOC: SL 20:24
PROVIDERS: Family Provider Family Medicine; PCP Family Medicine; Referring Provider Clinical Nurse Specialist Acute Care; Visit Provider Clinical Nurse Specialist Acute Care
DX: G47.33 Obstructive sleep apnea (adult) (pediatric) (principal)
CPT/HCPCS: 95811

== ENCOUNTER → 2019-02-10 | Outpatient (CLI) | payer OTHER, SELFPAY ==
[2018-10-23 14:17] VITALS: BMI 27.8
== END | disposition home or self-care (01) ==
LOC: SL 10:56
PROVIDERS: Family Provider Family Medicine; PCP Family Medicine; Referring Provider Clinical Nurse Specialist Acute Care; Visit Provider Clinical Nurse Specialist Acute Care
DX: G47.33 Obstructive sleep apnea (adult) (pediatric) (principal)

== ENCOUNTER → 2019-03-06 | Outpatient (CLI) | payer OTHER, SELFPAY ==
[2018-10-23 14:17] VITALS: BMI 27.8
[2019-03-06 17:45] LABS: Absolute Lymphocyte Count 1.71 X10^3/uL (0.83-4.51); Absolute Neutrophil Count 3.8 X10^3/uL (2.0-7.7); Basophil# 0.05 X10^3/uL; Basophil% 0.8 % (0-1); Eosinophil# 0.12 X10^3/uL; Eosinophils% 1.9 % (0-5); Hematocrit 43.2 % (40-54); Hemoglobin 13.8 g/dL (13.0-16.5); Lymphocyte # 1.71 X10^3/ul (4.0); Lymphocyte % 27.5 % (19-41); Mean Corp Hgb Conc 31.9 g/dL (32-36); Mean Corpuscular Hgb 28.6 pg (27.0-32.0); Mean Corpuscular Volume 89.4 fL (80-94); Mean Platelet Vol. 9.2 fl (6.2-12.0); Monocyte# 0.51 X10^3/uL; Monocyte% 8.2 % (0-10); NRBC Flagged by Analyzer 0 % (0-5); Neutrophil # 3.82 X10^3/uL (2.7-7.7); Neutrophil % 61.4 % (47-70); Platelet Count 273 K/mm3 (150-450); RBC Distribution Width CV 14.2 % (11.6-14.6); RBC Distribution Width SD 46.6 fl (35.1-43.9); Red Blood Count 4.83 M/mm3 (4.6-6.2); White Blood Count 6.2 K/mm3 (4.4-11.0)
[2019-03-06 18:18] LABS: Thyroid Stim Hormone (TSH) 0.14 uIU/mL (0.358-3.74)
[2019-03-11 14:15] LABS: Thyroglobulin Antibody < 1.0 IU/mL (0.0-0.9); Thyroid Peroxidase AB 11 IU/mL (0-34)
== END | disposition home or self-care (01) ==
LOC: MTLAB 15:45
PROVIDERS: Family Provider Family Medicine; PCP Family Medicine; Referring Provider Family Medicine; Visit Provider Family Medicine
DX: E04.9 Nontoxic goiter, unspecified (principal)
CPT/HCPCS: 36415; 84439; 84443; 84481; 85025; 86376; 86800

== ENCOUNTER → 2019-07-03 13:40 | Outpatient (CLI) | payer OTHER, SELFPAY ==
[2018-10-23 14:17] VITALS: BMI 27.8
--- NOTE | 2019-07-03 13:41 | US_ITS ---
STUDY: SCROTUM ULTRASOUND REASON FOR EXAM: Male, 63 years old. Bilateral scrotal mass TECHNIQUE: Ultrasound evaluation of the scrotum was performed with color Doppler and static alamo-scale imaging. COMPARISON: None. FINDINGS: Right testicle measures 4.3 cm and left testicle measures 4.5 cm. Testes are symmetric and homogeneous with normal, symmetric vascularity. No testicular mass is present. 7 mm right scrotal isreal is a small associated focus of vascularity, nonspecific. Epididymides are unremarkable with normal vascularity. 7 mm left epididymal head cyst. Moderate right hydrocele with a more well-circumscribed anechoic collection adjacent to the right epididymal head measuring up to 2.5 cm which may represent a spermatocele. Small left hydrocele. US/Testicular with Arterial Flow IMPRESSION: 1. 7 mm right shadowing lesion most likely represents a scrotal isreal with small associated focus of vascularity. Consider scrotal MRI versus short-term interval follow-up ultrasound to document stability. 2. Moderate right and small left hydroceles. 3. 2.5 cm right spermatocele versus epididymal head cyst END OF IMPRESSION: Electronically Signed: Rey Maria, at 19:32 EST Tel , Service support ,
== END ==
PROVIDERS: Family Provider Family Medicine; PCP Family Medicine; Referring Provider Family Medicine; Visit Provider Family Medicine
DX: N50.89 Other specified disorders of the male genital organs (principal)
CPT/HCPCS: 76870; 93976

== ENCOUNTER → 2019-07-04 12:00 | Outpatient (CLI) | payer OTHER, SELFPAY ==
[2018-10-23 14:17] VITALS: BMI 27.8
[2019-07-04 13:21] LABS: ALB/GLOB Ratio 1.1 RATIO (0.9-2.4); AST(SGOT) 23 U/L (15-37); Alanine Aminotransfer ALT/SGPT 38 U/L (16-61); Albumin, Serum 3.8 g/dL (3.2-5.0); Alkaline Phosphatase 77 U/L (45-117); Anion Gap 5 (5-15); BUN 19 mg/dL (7-18); BUN/Creat Ratio 15.6 RATIO (10-20); Calcium,Total 9.1 mg/dL (8.5-10.1); Chloride 109 mmol/L (98-107); Cholesterol 140 mg/dL (200); Creatinine, Serum 1.22 mg/dL (0.70-1.30); EST Glomerular Filtration Rate 64 mL/min (>60); Est Glom Filt Rate - Afr Amer 77 mL/min (>60); Globulin 3.6 g/dL (2.2-4.2); Glucose 95 mg/dL (74-106); High Density Lipoprotein 45 mg/dL; PSA,Total - Annual Screen 2.96 ng/mL (0.00-4.00); Potassium 4.1 mmol/L (3.5-5.1); Protein, Total 7.4 g/dL (6.4-8.2); Sodium Level 140 mmol/L (136-145); Triglycerides 63 mg/dL; Very Low Density Lipoprotein 13 mg/dL (5-40)
== END ==
PROVIDERS: Family Provider Family Medicine; PCP Family Medicine; Referring Provider Family Medicine; Visit Provider Family Medicine
DX: Z00.00 Encounter for general adult medical examination without abnormal findings (principal)
CPT/HCPCS: 36415; 80053; 80061; 84153; G0103

== ENCOUNTER → 2020-06-02 10:04 | Outpatient (CLI) | payer OTHER, SELFPAY ==
[2018-10-23 14:17] VITALS: BMI 27.8
[2020-06-02 12:44] LABS: AST(SGOT) 25 U/L (15-37); Alanine Aminotransfer ALT/SGPT 43 U/L (16-61); Albumin, Serum 3.7 g/dL (3.2-5.0); Alkaline Phosphatase 79 U/L (45-117); Anion Gap 6 (5-15); BUN 16 mg/dL (7-18); BUN/Creat Ratio 13.6 RATIO (10-20); Calcium,Total 9.1 mg/dL (8.5-10.1); Chloride 112 mmol/L (98-107); Creatinine, Serum 1.18 mg/dL (0.70-1.30); EST Glomerular Filtration Rate 66 mL/min (>60); Est Glom Filt Rate - Afr Amer 80 mL/min (>60); Globulin 3.6 g/dL (2.2-4.2); Glucose 92 mg/dL (74-106); Magnesium 2.3 mg/dL (1.6-2.6); Potassium 3.9 mmol/L (3.5-5.1); Protein, Total 7.3 g/dL (6.4-8.2); Sodium Level 141 mmol/L (136-145); T4 Free Direct 1.38 ng/dL (0.76-1.46); Thyroid Stim Hormone (TSH) 0.15 uIU/mL (0.358-3.74)
[2020-06-02 12:52] LABS: Absolute Lymphocyte Count 1.35 X10^3/uL (0.83-4.51); Absolute Neutrophil Count 5.2 X10^3/uL (2.0-7.7); Basophil# 0.03 X10^3/uL; Basophil% 0.4 % (0-1); Eosinophil# 0.09 X10^3/uL; Eosinophils% 1.2 % (0-5); Hematocrit 48.3 % (40-54); Hemoglobin 15.5 g/dL (13.0-16.5); Lymphocyte # 1.35 X10^3/ul (4.0); Lymphocyte % 18.6 % (19-41); Mean Corp Hgb Conc 32.1 g/dL (32-36); Mean Corpuscular Hgb 29.4 pg (27.0-32.0); Mean Corpuscular Volume 91.7 fL (80-94); Mean Platelet Vol. 9.6 fl (6.2-12.0); Monocyte# 0.58 X10^3/uL; NRBC Flagged by Analyzer 0 % (0-5); Neutrophil # 5.19 X10^3/uL (2.7-7.7); Neutrophil % 71.5 % (47-70); Platelet Count 259 K/mm3 (150-450); RBC Distribution Width CV 13.1 % (11.6-14.6); RBC Distribution Width SD 44.6 fl (35.1-43.9); Red Blood Count 5.27 M/mm3 (4.6-6.2); White Blood Count 7.3 K/mm3 (4.4-11.0)
[2020-06-04 21:13] LABS: Anti-Thyroglobulin AB < 1.0 IU/mL (0.0-0.9); Thyroglobulin, Serum Qt. 115.6 ng/mL (1.4-29.2); Thyroid Peroxidase AB < 9 IU/mL (0-34)
== END ==
PROVIDERS: PCP Family Medicine; Referring Provider Family Medicine; Visit Provider Family Medicine
DX: E04.9 Nontoxic goiter, unspecified (principal); I10 Essential (primary) hypertension; G47.33 Obstructive sleep apnea (adult) (pediatric)
CPT/HCPCS: 36415; 80053; 83735; 84432; 84439; 84443; 85025; 86376; 86800

== ENCOUNTER → 2020-06-18 15:06 | Outpatient (CLI) | payer OTHER, SELFPAY ==
[2018-10-23 14:17] VITALS: BMI 27.8
--- NOTE | 2020-06-18 15:10 | US_ITS ---
STUDY: THYROID ULTRASOUND REASON FOR EXAM: Male, 64 years old. HYPERTHYROIDISM TECHNIQUE: Ultrasound evaluation of the thyroid was performed with real-time and static alamo-scale imaging. COMPARISON: 07/23/2018 FINDINGS: RIGHT LOBE: The right lobe of the thyroid gland measures 6.1 x 3.1 x 3.1 cm. There is a heterogeneous echotexture. Nodule 1: Enlarging 18 x 12 x 16 mm (from 14 x 8 x 8 mm focus (solid isoechoic wider than tall ill-defined marginated nodule with no echogenic foci (TR 3) and follow-up ultrasound is recommended in one year. Nodule 2: No change in a 22 x 18 x 21 mm solid isoechoic wider than tall ill-defined marginated nodule with no echogenic foci (TR 3) and follow-up ultrasound is recommended in one year. Nodule 3: Shrinking 11 x 9 x 15 mm (from 21 x 18 x 15 mm) solid isoechoic wider than tall ill-defined marginated nodule with no echogenic foci (TR 3) and follow-up ultrasound is recommended in one year. LEFT LOBE: The left lobe of the thyroid gland measures 10.6 x 4.6 x 4.4 cm. There is a heterogeneous echotexture. Nodule 1: No change in the 21 x 15 x 22 mm solid isoechoic wider than tall ill-defined marginated nodule with no echogenic foci (TR 3) in the anterior left lobe and follow-up ultrasound is recommended in one year. Nodule 2: Enlarging 27 x 23 x 27 mm (from 21 x 22 x 18 mm) solid isoechoic wider than tall ill-defined marginated nodule with no echogenic foci (TR 3) in the lateral left lobe and ultrasound-guided biopsy is recommended. ISTHMUS: The isthmus measures 9 mm thick. Nodule 1: Shrinking 9 x 14 x 9 mm (from 17 x 14 x 10 mm) solid isoechoic wider than tall ill-defined marginated nodule with no echogenic foci (TR 3) in the isthmus.. The regional lymph nodes are normal. US/Thyroid IMPRESSION: Multinodular goiter with an enlarging 27 mm solid nodule in the lateral left lobe for which ultrasound-guided fine-needle aspiration biopsy is recommended. Follow-up ultrasound in one year''s also recommended to Electronically Signed: David Metz MD at 12:57 EST Tel , Service support ,
== END ==
PROVIDERS: PCP Family Medicine; Referring Provider Family Medicine; Visit Provider Family Medicine
DX: E05.90 Thyrotoxicosis, unspecified without thyrotoxic crisis or storm (principal)
CPT/HCPCS: 76536

== ENCOUNTER → 2020-07-07 | Outpatient (CLI) | payer OTHER, SELFPAY ==
--- NOTE | 2020-07-07 13:00 | ASPS_PTH ---
PATIENT: FRANCISCA VELASQUEZ [facility] U#:[id number] AGE/SX: 64/M ROOM: RE07/07/[address]: Dr. Roscoe Packer MD : 1955 BED: DIS: 07/07/2020 SPEC #: [id number] RECD: 07/07/20 15:39 STATUS: SHAYLA BENNIE #: [id number] CHEL[place]: 07/07/20 13:[address]: Roscoe Packer DEPT: CYTOLOGY RECD BY: Antoni Higgins ENTERED: 07/09/20 07:06 SP TYPE: ASPIRATION OTHR DR: Dr. Erwin Bae MD Tissues: A - Thyroid gland, NOS B - Thyroid gland, NOS Procedures: Special Stain Group II Cytology Other HEADER OPERATION: Ultrasound-guided fine needle aspiration bilateral thyroid PRE-OP DIAGNOSIS: Multiple thyroid nodules TISSUE SUBMITTED: A - FNA left thyroid 12 slides, B - FNA right thyroid 12 slides DIAGNOSIS CYTOLOGY A. Left thyroid nodule, ultrasound-guided FNA (smears): Consistent with benign colloid nodule. Adequate for evaluation. B. Right thyroid nodule, ultrasound-guided FNA (smears): Consistent with benign colloid nodule. Adequate for evaluation. SJ:jeniffer 07/09/20 COMMENT Correlation with clinical, radiologic findings and appropriate follow up are necessary. Please make reference to previous specimen (C19-30) left superior thyroid nodule, FNA and left inferior thyroid nodule, FNA with diagnosis of benign follicular nodule. CYTOLOGY STUDY Slides are reviewed. CYTOLOGY GROSS A - Received are 12 smears labeled with the patient's name and designated per the requisition as left thyroid. Submitted for staining. B - Received are 12 smears labeled with the patient's name and designated per the requisition as right thyroid. Submitted for staining. / jeniffer 07/09/20 TC:5 CPT: 46022 x2
== END | disposition home or self-care (01) ==
LOC: LABSPEC 15:55
PROVIDERS: PCP Family Medicine; Visit Provider Surgery
DX: E04.2 Nontoxic multinodular goiter (principal)
CPT/HCPCS: 88161; 88313

== ENCOUNTER 2020-10-14 02:52 | Outpatient (RCR) | payer OTHER, SELFPAY ==
[2020-10-14] MEDS: COVID-19 VACC, MRNA(PFIZER)/PF 30 MCG/0.3 ML SYRINGE IM (17:09)
[2020-11-04] MEDS: COVID-19 VACC, MRNA(PFIZER)/PF 30 MCG/0.3 ML SYRINGE IM (16:32)
== END 2020-11-04 23:59 | disposition home or self-care (01) ==
LOC: IMMUN 02:52
PROVIDERS: PCP Family Medicine; Visit Provider Family Medicine
DX: Z23 Encounter for immunization (principal)
CPT/HCPCS: 0001A; 0002A; 91300

== ENCOUNTER → 2020-11-24 14:19 | Outpatient (CLI) | payer OTHER, SELFPAY ==
[2020-11-24 18:05] LABS: Protein, Urine (Random) 11.9 mg/dL (<11.9)
[2020-11-24 18:06] LABS: Erythrocyte Sedimentation Rate 15 mm/hr (0-20)
[2020-11-24 18:09] LABS: Vitamin B12 638 pg/mL (211-911)
[2020-11-24 18:30] LABS: AST(SGOT) 25 U/L (15-37); Alanine Aminotransfer ALT/SGPT 35 U/L (16-61); Albumin, Serum 3.6 g/dL (3.2-5.0); Alkaline Phosphatase 81 U/L (45-117); Anion Gap 6 (5-15); BUN 18 mg/dL (7-18); BUN/Creat Ratio 14.8 RATIO (10-20); CRP < 2.90 mg/L (0.0-3.0); Calcium,Total 9.1 mg/dL (8.5-10.1); Chloride 110 mmol/L (98-107); Creatinine, Serum 1.22 mg/dL (0.70-1.30); EST Glomerular Filtration Rate 64 mL/min (>60); Est Glom Filt Rate - Afr Amer 77 mL/min (>60); Globulin 3.5 g/dL (2.2-4.2); Glucose 101 mg/dL (74-106); Potassium 4.1 mmol/L (3.5-5.1); Protein, Total 7.1 g/dL (6.4-8.2); Rheumatoid Factor < 10.0 IU/mL (<15); Sodium Level 140 mmol/L (136-145)
[2020-11-29 14:08] LABS: Alpha-1-Globulin, Ur 4.4 % (.); Alpha-2-Globulins, Ur 19.7 % (.); Beta Globulin, Ur 27.7 % (.); Gamma Globulin, Ur 16.2 % (.); M-Spike, Ur % Not Observed % (Not Observed); Total Protein, Ur 10.6 mg/dL (Not Estab.)
== END ==
LOC: MFPLAB 14:20
PROVIDERS: PCP Family Medicine; Referring Provider Family Medicine; Visit Provider Psychiatry & Neurology Neurology
DX: R26.89 Other abnormalities of gait and mobility (principal)
CPT/HCPCS: 36415; 80053; 82175; 82607; 83655; 83825; 84156; 84166; 84443; 85652; 86140; 86335; 86431

== ENCOUNTER → 2020-11-25 15:10 | Outpatient (CLI) | payer OTHER, SELFPAY ==
[2020-11-30 11:28] LABS: Arsenic 7245 4 ug/L (2-23); Lead, Blood 1 ug/dL (0-4); Mercury, Blood 85324 < 1.0 ug/L (0.0-14.9)
== END ==
PROVIDERS: PCP Family Medicine; Referring Provider Family Medicine; Visit Provider Psychiatry & Neurology Neurology
DX: R26.89 Other abnormalities of gait and mobility (principal)
CPT/HCPCS: 82175; 83655; 83825

== ENCOUNTER 2020-12-06 09:08 | Inpatient (IN) | payer OTHER, SELFPAY ==
[2020-12-06] VITALS (10 sets, daily range): BP systolic 132–173; BP diastolic 75–113; PULSE 105–119; RESP 16–28; TEMP 35.7–37.6; O2SAT 86–98; BMI 27.0; BMI 27.1
--- NOTE | 2020-12-06 10:05 | EKG12_ITS ---
Test Reason : CP Blood Pressure : / mmHG Vent. Rate : 105 BPM Atrial Rate : 105 BPM P-R Int : 152 ms QRS Dur : 094 ms QT Int : 326 ms P-R-T Axes : 039 -23 025 degrees QTc Int : 430 ms Sinus tachycardia Inferior infarct , age undetermined Abnormal ECG Confirmed by CHARITY ELIZABETH, BAKARI ([id number]), food editor SWATHI MONIQUE ([id number]) on 12/08/2020 8:59:01 AM Referred By: JOSE/PRAVEEN Confirmed By:BAKARI NASH MD
--- NOTE | 2020-12-06 10:06 | ED.VIS.GEN ---
History of Present Illness Chief Complaint: Chest Pain Informant: Patient Narrative: 65-year-old male states for the past 36 hours he has had a very severe pain in his right anterior chest and his right mid back. States it hurts worse to take a deep breath and he feels an air hunger because of that. He states that his abdomen does not hurt but it is just above the abdomen on the lower ribs that does. No fevers. No significant cough but he does note a slight cough that comes from my bronchioles. No DVT PE risk factors. He has had a TIA. He notes that he has had an enlarged thyroid gland in the past. He states that he has had [address] Packer and by Dr. Crow and they have come back negative for cancer.. - Past Medical History (1) Multiple thyroid nodules Status: Chronic (2) Benign prostatic hyperplasia Status: Chronic Past Medical History - Allergies and Home Meds Allergies/Adverse Reactions: Allergies Penicillins Allergy (Verified 12/06/20 09:09) Anaphylaxis Primary Care Physician: Erwin Bae MD [Primary Care Provider] - Past Medical History: - - TIA Surgical History: no surgical history Smoking Status: Former smoker Drugs: None - Family History Maternal Family History: Reports: Stroke, - - Multiple myeloma. Paternal Family History: Reports: Hypertension Review of Systems General: Denies: Chills, Fever, Sweats Eyes: Denies: Visual changes - bilaterally, Diplopia ENT: Denies: Rhinorrhea, Sore throat Cardiovascular: Reports: Chest pain. Denies: Palpitations Respiratory: Reports: Dyspnea, Cough. Denies: Dyspnea on exertion Gastrointestinal: Denies: Abdominal pain, Nausea, Vomiting, Diarrhea, Melena, Hematochezia Genitourinary: Denies: Dysuria, Hematuria, Frequency Musculoskeletal: Reports: Back pain. Denies: Extremity Pain Skin: Denies: Rash, Wounds Neurological: Denies: Headache, Weakness, Numbness Physical Exam Vital Signs/Narrative: Vital Signs Temp Pulse Resp BP Pulse Ox 12/06/20 09:10 96.2 F L 111 H 16 132/86 H 95 Inital Vital Signs reviewed: Yes General: Well nourished, Well developed, No Acute Distress Head: Normocephalic, Atraumatic Eyes: Perrl, EOMI ENT: Moist mucous membranes, No rhinorrhea Neck: Supple, Nontender Cardiovascular: Regular rate, No murmurs, Tachycardia Respiratory: No distress, CTA bilaterally, Chest nontender Abdomen: Soft, Nontender, Nondistended, Normal bowel sounds Back: Nontender, Normal Inspection Extremities: Nontender, No edema Skin: Normal color, No rash Neurological: Alert, Oriented x3, Cranial nerves II-XII grossly intact, Normal Strength, Normal Sensation Psychological: Normal affect, Normal Mood Diagnostic/Tx/Re-eval Clinical Impression(s) from Imaging Studies Chest X-Ray 12/06/20 10:22 IMPRESSION: Patchy area of atelectasis versus infiltrate in the right middle lobe. Follow-up is recommended. Findings suggestive of enlargement of the left lobe of the thyroid. Electronically Signed: Jorge Ellis MD at 11:04 EDT , Service support , Chest CTA 12/06/20 12:05 IMPRESSION: Multiple bilateral pulmonary emboli. Right lower lobe infiltrate. Mild increased markings in the left lower lobe. Stable enlargement of the thyroid more prominent on the left side Electronically Signed: Jorge Ellis MD at 12:50 EDT , Service support , Laboratory Last Values WBC 12.4 K/mm3 (4.4-11.0) H 12/06/20 10:20 RBC 5.10 M/mm3 (4.6-6.2) 12/06/20 10:20 Hgb 15.2 g/dL (13.0-16.5) 12/06/20 10:20 Hct 47.3 % (40-54) 12/06/20 10:20 MCV 92.7 fL (80-94) 12/06/20 10:20 MCH 29.8 pg (27.0-32.0) 12/06/20 10:20 MCHC 32.1 g/dL (32-36) 12/06/20 10:20 RDW Std Deviation 46.0 fl (35.1-43.9) H 12/06/20 10:20 RDW Coeff of Inés 13.2 % (11.6-14.6) 12/06/20 10:20 Plt Count 188 K/mm3 (150-450) 12/06/20 10:20 MPV 9.4 fl (6.2-12.0) 12/06/20 10:20 Immature Gran % (Auto) 0.500 % (0.0-0.9) 12/06/20 10:20 Neut % (Auto) 81.6 % (47-70) H 12/06/20 10:20 Lymph % (Auto) 7.4 % (19-41) L 12/06/20 10:20 Cochran % (Auto) 10.1 % (0-10) H 12/06/20 10:20 Eos % (Auto) 0.2 % (0-5) 12/06/20 10:20 Baso % (Auto) 0.2 % (0-1) 12/06/20 10:20 Absolute Neuts (auto) 10.1 X10^3/uL (2.0-7.7) H 12/06/20 10:20 Absolute Lymphs (auto) 0.91 X10^3/uL (0.83-4.51) 12/06/20 10:20 Nucleated RBC % 0 % (0-5) 12/06/20 10:20 PT 13.9 SECONDS (11.7-14.9) 12/06/20 11:00 INR 1.1 12/06/20 11:00 APTT 29.3 Seconds (24.1-36.2) 12/06/20 11:00 Sodium 136 mmol/L (136-145) 12/06/20 11:00 Potassium 4.0 mmol/L (3.5-5.1) 12/06/20 11:00 Chloride 103 mmol/L (98-107) 12/06/20 11:00 Carbon Dioxide 24.0 mmol/L (21.0-32.0) 12/06/20 11:00 Anion Gap 9 (5-15) 12/06/20 11:00 BUN 22 mg/dL (7-18) H 12/06/20 11:00 Creatinine 1.20 mg/dL (0.70-1.30) 12/06/20 11:00 Estim Creat Clear Calc 66.24 ml/min 12/06/20 11:00 Est GFR (MDRD) Af Amer 78 mL/min (>60) 12/06/20 11:00 Est GFR (MDRD) Non-Af 65 mL/min (>60) 12/06/20 11:00 BUN/Creatinine Ratio 18.3 RATIO (10-20) 12/06/20 11:00 Glucose 99 mg/dL (74-106) 12/06/20 11:00 Calcium 8.5 mg/dL (8.5-10.1) 12/06/20 11:00 Total Bilirubin 2.00 mg/dL (0.20-1.00) H 12/06/20 11:00 AST 20 U/L (15-37) 12/06/20 11:00 ALT 35 U/L (16-61) 12/06/20 11:00 Alkaline Phosphatase 98 U/L (45-117) 12/06/20 11:00 Troponin I < 0.015 ng/mL (<0.045) 12/06/20 11:00 Total Protein 7.3 g/dL (6.4-8.2) 12/06/20 11:00 Albumin 3.2 g/dL (3.2-5.0) 12/06/20 11:00 Globulin 4.1 g/dL (2.2-4.2) 12/06/20 11:00 Albumin/Globulin Ratio 0.8 RATIO (0.9-2.4) L 12/06/20 11:00 Lipase 93 U/L (73-393) 12/06/20 11:00 - EKG Initial EKG Interpretation: Sinus Tachycardia - EKG demonstrates sinus tachycardia at a rate of 105. No concerning features of ACS or ectopy noted. - Medical Decision Making Basic blood work showed a leukocytosis at 12.. His EKG is a sinus tachycardia at a rate of 105. CTA of the chest demonstrates multiple pulmonary embolisms and enlargement of the thyroid gland. Also noted to have possible pneumonia on the right. This does coincide with the patient's cough and the lower anterior chest pain. Blood cultures will be obtained and he will receive Rocephin and azithromycin. Just standing at the patient's bedside he is heart rate increases to almost 140. The plan will be to admit the patient for further management I will speak with the hospitalist. ED Disposition - Plan for ED Patient: Disposition: Acute Care [facility] Diagnosis: Bilateral pulmonary embolism, Pneumonia, Thyroid enlargement Referrals: Erwin Bae MD [Primary Care Provider] -
--- NOTE | 2020-12-06 10:22 | RAD_ITS ---
STUDY: X-RAY CHEST REASON FOR EXAM: Male, 65 years old. 36 hour history of chest pain. TECHNIQUE: Single AP portable view of the chest. COMPARISON: Comparison is made with prior study dated 09/04/2018. FINDINGS: EKG electrodes are seen. Questionable enlargement of the left lobe of the thyroid with deviation of the trachea towards the right side. Patchy atelectasis and/or infiltrate in the right middle lobe. There is no demonstrated pleural abnormality. Normal size heart. Normal mediastinum and anthony. Normal visualized pulmonary arteries. There is atherosclerotic tortuosity of the aortic arch and descending thoracic aorta. There are diffuse degenerative changes of the visualized thoracic spine. Normal visualized ribs, clavicles, and shoulders. There is no demonstrated abnormality of the visualized soft tissue structures of the upper abdomen. RAD/Chest 1 View (Portable) IMPRESSION: Patchy area of atelectasis versus infiltrate in the right middle lobe. Follow-up is recommended. Findings suggestive of enlargement of the left lobe of the thyroid. Electronically Signed: Jorge Ellis MD at 11:04 EDT , Service support ,
[2020-12-06 10:24] LABS: Absolute Lymphocyte Count 0.91 X10^3/uL (0.83-4.51); Absolute Neutrophil Count 10.1 X10^3/uL (2.0-7.7); Basophil# 0.02 X10^3/uL; Basophil% 0.2 % (0-1); Eosinophil# 0.03 X10^3/uL; Eosinophils% 0.2 % (0-5); Hematocrit 47.3 % (40-54); Hemoglobin 15.2 g/dL (13.0-16.5); Lymphocyte # 0.91 X10^3/ul (0.83-4.51); Lymphocyte % 7.4 % (19-41); Mean Corp Hgb Conc 32.1 g/dL (32-36); Mean Corpuscular Hgb 29.8 pg (27.0-32.0); Mean Corpuscular Volume 92.7 fL (80-94); Mean Platelet Vol. 9.4 fl (6.2-12.0); Monocyte# 1.25 X10^3/uL; Monocyte% 10.1 % (0-10); NRBC Flagged by Analyzer 0 % (0-5); Neutrophil # 10.09 X10^3/uL (2.7-7.7); Neutrophil % 81.6 % (47-70); Platelet Count 188 K/mm3 (150-450); RBC Distribution Width CV 13.2 % (11.6-14.6); White Blood Count 12.4 K/mm3 (4.4-11.0)
[2020-12-06] MEDS: Ondansetron 4 MG/2 ML Vial IV (10:25)
[2020-12-06] MEDS: 0.9% Normal Saline 1,000 ML 1000 ML IV (10:25)
[2020-12-06] MEDS: Morphine 4 MG/ML Syringe IV (10:25)
[2020-12-06 11:20] LABS: International Normalized Ratio 1.1; Prothrombin Time (Protime)PT. 13.9 SECONDS (11.7-14.9)
[2020-12-06 11:21] LABS: Partial Thromboplast Time 29.3 Seconds (24.1-36.2)
[2020-12-06 11:24] LABS: ALB/GLOB Ratio 0.8 RATIO (0.9-2.4); AST(SGOT) 20 U/L (15-37); Alanine Aminotransfer ALT/SGPT 35 U/L (16-61); Albumin, Serum 3.2 g/dL (3.2-5.0); Alkaline Phosphatase 98 U/L (45-117); Anion Gap 9 (5-15); BUN 22 mg/dL (7-18); BUN/Creat Ratio 18.3 RATIO (10-20); Calcium,Total 8.5 mg/dL (8.5-10.1); Chloride 103 mmol/L (98-107); EST Glomerular Filtration Rate 65 mL/min (>60); Est Glom Filt Rate - Afr Amer 78 mL/min (>60); Estimated Creatinine Clearance 66.24 ml/min; Globulin 4.1 g/dL (2.2-4.2); Glucose 99 mg/dL (74-106); Lipase 93 U/L (73-393); Protein, Total 7.3 g/dL (6.4-8.2); Sodium Level 136 mmol/L (136-145)
--- NOTE | 2020-12-06 12:05 | CT_ITS ---
STUDY: CTA CHEST REASON FOR EXAM: Male, 65 years old. high pretest prob for pe RADIATION DOSAGE (If Supplied By Facility): CTDIvol = ( 11.25 ) mGy, DLP = ( 383.43 ) mGycm TECHNIQUE: The examination was performed with the intravenous administration of IV 100mL [id number]-370. Post-processing of the angiographic images was performed, with multiplanar reformation and 3D reconstruction. Individualized dose optimization techniques were used for this CT. COMPARISON: Comparison is made with prior CT scan of the thorax dated 09/12/2018 and prior chest radiograph done earlier today. FINDINGS: Once again, the left lobe of the thyroid gland is markedly enlarged with evidence of substernal extension and displacement of the trachea towards the right side of the midline. Mildly enlarged and heterogeneous appearance of the right lobe of the thyroid. Multiple bilateral pulmonary arterial emboli seen. Small amount of thrombus is also seen in the distal portion of the left mainstem bronchus. Normal thoracic aorta and visualized great vessels. There is no demonstrated aortic dissection. Normal heart and pericardium. There are visualized mediastinal lymph nodes, which are within normal size limits, and with normal morphology. Mildly enlarged right hilar lymph nodes. Normal visualized trachea and bronchi. The lungs are well expanded. Infiltrate in the right lower lobe. Mild degree of increased markings in the left lower Normal pleura. Normal chest wall structures. There are degenerative changes of thoracic spine. Right renal atrophy. 1.8 cm cyst in the anterior aspect of the right kidney. Multiple small gallstones. CT/CTA Chest W/WO Contrast IMPRESSION: Multiple bilateral pulmonary emboli. Right lower lobe infiltrate. Mild increased markings in the left lower lobe. Stable enlargement of the thyroid more prominent on the left side Electronically Signed: Jorge Ellis MD at 12:50 EDT , Service support ,
--- NOTE | 2020-12-06 13:54 | HP.PCM_ITS ---
Problem List (1) Hyperlipidemia Status: Chronic (2) Hypertension Status: Chronic (3) Bilateral pulmonary embolism Status: Acute (4) Pneumonia Status: Acute (5) Thyroid enlargement Status: Chronic (6) Multiple thyroid nodules Status: Chronic (7) Benign prostatic hyperplasia Status: Chronic History of Present Illness Date of Admission: 12/06/20 Chief Complaint: Chest pain. The patient is a 65 year old M with past medical history as mentioned above presented to the emergency room because of chest pain. Symptoms started 2 days ago with chest pain, right-sided chest pain, sharp pain, anywhere from 2-6 out of 10 in severity, intermittent, goes around the right lateral chest, associated with mild shortness of breath as well as cough with minimal sputum, aggravated by movement and no relieving factors. He denies fever or chills. He denied recent travel or sick contacts. He stated that he was vaccinated for COVID-19 a month ago and he completed 2 doses. He denied left-sided chest pain. He denied leg pain or swelling. In the emergency department, patient was afebrile, tachycardic, blood pressure stable, pulse ox was 95% on room air. Routine blood work was remarkable for mild leukocytosis, otherwise unremarkable. Bilirubin was 2, other LFT was unremarkable. EKG revealed sinus tachycardia, no acute ischemic changes. Troponin was negative. Lipase was normal. Chest x-ray revealed patchy area of possible infiltrate on the right middle lobe. CTA chest revealed bilateral multiple PEs, right lower lobe infiltrate and stable enlargement of the thyroid gland. COVID-19 antigen is negative. Patient is being admitted for acute bilateral pulmonary emboli and community-acquired pneumonia. Past Medical History Past Medical History (Chronic Problems): Chronic Problems (Last Updated 12/06/20 @ 13:[address] Edith Rodriguez MD) Hyperlipidemia (Chronic) Hypertension (Chronic) Thyroid enlargement (Chronic) Lymph node enlargement (Chronic) Multiple thyroid nodules (Chronic) Benign prostatic hyperplasia (Chronic) Medical History: Medical History (Last Updated 12/06/20 @ 13:[address] Edith Rodriguez MD) Lymph node enlargement (Chronic) R59.9 Multiple thyroid nodules (Chronic) E04.2 BPH (benign prostatic hyperplasia) N40.0 GI bleed K92.2 Nephrolithiasis N20.0 TIA (transient ischemic attack) G45.9 Ulcerative colitis K51.90 Allergies Penicillins Allergy (Verified 12/06/20 09:09) Anaphylaxis Home Medications: Ambulatory Orders Medication Instructions Recorded Melatonin/Pyridoxine [Melatonin 5 10 mg PO QHS 05/28/18 mg Tablet] Tamsulosin HCl [Flomax] 0.4 mg PO DAILY 05/28/18 Ubidecarenone [Co Q-10] 100 mg PO DAILY 05/28/18 cranberry extract 250 mg capsule 400 mg PO DAILY cap 06/28/20 dipyridamole 25 mg tablet 25 mg PO TID 06/28/20 famotidine 20 mg tablet 20 mg PO BID 06/28/20 ferrous sulfate 27 mg iron tablet 18 mg PO DAILY tab 06/28/20 irbesartan 75 mg tablet 75 mg PO DAILY 06/28/20 magnesium oxide 400 mg PO BID cap 06/28/20 metoprolol succinate 25 mg 25 mg PO DAILY 06/28/20 tablet,extended release 24 hr Atorvastatin Calcium 40 mg PO QHS 12/06/20 Multivitamin with Minerals 1 tablet PO DAILY 12/06/20 [Multiple Vitamin] Surgical History: Surgical History (Last Updated 07/07/20 @ 12:52 by Jen Pak) S/P fine needle aspiration Z98.890 bilateral thyroid Status post biopsy of thyroid gland Onset Date: ~09/2018 Z98.890 Surgical History: no surgical history Psychiatric History: No pertinent psych hx Lives: Spouse/ Significant Other Smoking Status: Current every day smoker Tobacco Use: Vapor Alcohol: None Drugs: None - *Family History Maternal History Items: Stroke, - - Multiple myeloma. Paternal History Items: Hypertension Review of Systems Constitutional: Denies: Anorexia, Chills, Fever, Weakness Eyes: Denies: Blurred vision, Double vision, Drainage, Redness HEENT: Denies: Difficulty Hearing, Ear Pain, Eye Pain, Nasal Congestion, Sore Throat Cardiovascular: Reports: Chest Pain. Denies: Chest Pressure, Chest Tightness, Heaviness, Palpitations, Syncope Respiratory: Reports: Cough, Shortness of Breath, Sputum production. Denies: Wheezing Gastrointestinal: Denies: Abdominal Pain, Constipation, Diarrhea, Nausea, Vomiting Genitourinary: Denies: Dysuria, Frequency, Hematuria Musculoskeletal: Denies: Arm Pain, Back Pain, Foot Pain Skin: Denies: Dryness, Rash Neurological: Denies: Balance problems, Double vision, Change in Speech, Slurred speech, Confusion, Headaches, Incoordination Psychiatric: Denies: Anxiety, Depression Endocrine: Denies: Change in Body Habitus, Polydipsia, Polyuria VTE Information - Inpt Only VTE Present on Admission: Yes VTE Mechan Device Prophylaxis: None VTE Pharm Prophylaxis ordered?: No Patient Problems: Active and Suspected Problems (Last Updated 12/06/20 @ 13:[address] Edith Rodriguez MD) Bilateral pulmonary embolism (Acute) Pneumonia (Acute) - Physical Exam Vitals/I&O's: Vital Signs Temp Pulse Resp BP Pulse Ox 96.2 F L 111 H 16 132/86 H 95 12/06/20 09:10 12/06/20 09:10 12/06/20 09:10 12/06/20 09:10 12/06/20 09:10 Oxygen Delivery Method Room Air Weight: 194 lb 0.108 oz Body Mass Index (BMI) 27.0 Finger Stick Blood Glucose 98 Intake and Output for Last 24 Hours 12/04/20 12/05/20 12/06/20 23:59 23:59 23:59 Intake Total 1000 / 1000 Balance 1000 / 1000 General: Alert, Oriented x3, Cooperative, No apparent distress HEENT: Atraumatic, PERRLA, EOMI, Normocephalic Oral: Moist Mucosa, No Gingival or Mucosal Lesions/ Ulcerations Neck: Supple, No JVD, Negative Carotid Bruits, Trachea Midline, Thyroid Normal Size and Texture Lungs: Clear to auscultation, No rhonchi, No wheeze, No rales, Diminished Cardiovascular: Regular rate, Regular Rhythm, Normal S1, Normal S2, PMI Normal, Tachycardic Abdomen: Bowel Sounds Present, Soft, Non Tender, Non-Distended, No Hepato- splenomegaly Extremities: No clubbing, No cyanosis, No edema Skin: No rashes, No breakdown Lymphatic: No Cervical, Supraclavicular, or Inguinal Adenopathy Neurological: Cranial nerves II-XII grossly intact, Motor Exam 5/5 strength throughout Psych/Mental Status: Normal Affect, Appropriate, Alert and oriented to time, place, person, mood and affect Laboratory Results 12/06/20 10:20: WBC 12.4 H, RBC 5.10, Hgb 15.2, Hct 47.3, MCV 92.7, MCH 29.8, MCHC 32.1, RDW Std Deviation 46.0 H, RDW Coeff of Inés 13.2, Plt Count 188, MPV 9.4, Immature Gran % (Auto) 0.500, Neut % (Auto) 81.6 H, Lymph % (Auto) 7.4 L, [place] % (Auto) 10.1 H, Eos % (Auto) 0.2, Baso % (Auto) 0.2, Absolute Neuts (auto) 10.1 H, Absolute Lymphs (auto) 0.91, Nucleated RBC % 0 12/06/20 10:20: PT Cancelled, INR Cancelled, APTT Cancelled 12/06/20 10:20: Sodium Cancelled, Potassium Cancelled, Chloride Cancelled, Carbon Dioxide Cancelled, Anion Gap Cancelled, BUN Cancelled, Creatinine Cancelled, Estim Creat Clear Calc Cancelled, Est GFR (MDRD) Af Amer Cancelled, Est GFR (MDRD) Non-Af Cancelled, BUN/Creatinine Ratio Cancelled, Glucose Cancelled, Calcium Cancelled, Total Bilirubin Cancelled, AST Cancelled, ALT Cancelled, Alkaline Phosphatase Cancelled, Troponin I Cancelled, Total Protein Cancelled, Albumin Cancelled, Globulin Cancelled, Albumin/Globulin Ratio Cancelled, Lipase Cancelled 12/06/20 11:00: PT 13.9, INR 1.1, APTT 29.3 12/06/20 11:00: Sodium 136, Potassium 4.0, Chloride 103, Carbon Dioxide 24.0, Anion Gap 9, BUN 22 H, Creatinine 1.20, Estim Creat Clear Calc 66.24, Est GFR (MDRD) Af Amer 78, Est GFR (MDRD) Non-Af 65, BUN/Creatinine Ratio 18.3, Glucose 99, Calcium 8.5, Total Bilirubin 2.00 H, AST 20, ALT 35, Alkaline Phosphatase 98, Troponin I < 0.015, Total Protein 7.3, Albumin 3.2, Globulin 4.1, Albumin/Globulin Ratio 0.8 L, Lipase 93 Clinical Impression(s) from Imaging Studies Chest X-Ray 12/06/20 10:22 IMPRESSION: Patchy area of atelectasis versus infiltrate in the right middle lobe. Follow-up is recommended. Findings suggestive of enlargement of the left lobe of the thyroid. Electronically Signed: Jorge Ellis MD at 11:04 EDT , Service support , Chest CTA 12/06/20 12:05 IMPRESSION: Multiple bilateral pulmonary emboli. Right lower lobe infiltrate. Mild increased markings in the left lower lobe. Stable enlargement of the thyroid more prominent on the left side Electronically Signed: Jorge Ellis MD at 12:50 EDT , Service support , Current Medications Azithromycin 500 mg/ Dextrose 255 mls @ 250 mls/hr IV X1 ONE Stop: 12/06/20 14:14 Assessment/Plan All Active Problems (Last Updated 12/06/20 @ 13:[address] Edith Rodriguez MD) Bilateral pulmonary embolism (Acute) Pneumonia (Acute) This is a 65 years old male patient presented to the emergency room because of right-sided chest pain associated with mild shortness of breath and cough, found to have multiple bilateral PEs and right lower lobe infiltrate on CTA chest and he is being admitted for unprovoked bilateral pulmonary emboli and community- acquired pneumonia. #1 acute unprovoked multiple bilateral pulmonary emboli: No history of DVTs. Patient is active and doing his daily activities without restrictions. No personal or family history of clotting disorders. He had no recent surgery and no history of cancer. He had a history of benign multinodular goiter. Cancer is a still a possibility. Currently, he is tachycardic, on room air. Plan: Admit to PCU, cardiac monitoring, hypercoagulable Work-up, oncology/hematology consult, CT scan abdomen and pelvis with IV contrast to rule out malignancy, start therapeutic Lovenox twice daily, IV fluids, IV morphine as needed for pain, Tylenol as needed, Zofran as needed, repeat CBC and CMP tomorrow morning, PT OT evaluation and treatment. #2 acute community-acquired pneumonia: It is on the right side. COVID-19 antigen was negative. Plan: Start IV Rocephin and Zithromax, IV fluids, Tylenol as needed, repeat CBC and CMP tomorrow morning. #3 history of multinodular goiter/large left thyroid nodule: Status post fine- needle aspiration on June, that showed benign colloid nodule. On the CTA chest today, there is markedly enlarged left lobe of the thyroid with substernal extension and displacement of the trachea towards the right side of the midline, mildly enlarged right hilar lymph nodes. Plan: Oncology/hematology consult, TSH, T4 and T3. #4 hypertension: Stable, continue irbesartan and metoprolol. #5 hyperlipidemia: Stable, continue statins. #6 benign prostatic hypertrophy: Continue Flomax. #7 DVT prophylaxis: Therapeutic Lovenox twice daily. This note was generated with [employer] dictation software. It may contain incorrect words, spelling, and punctuation that were not noted in checking the note before signing. Inpatient E&M: 24759 Init Hosp L3
[2020-12-06 14:58] LABS: T4 Free Direct 1.49 ng/dL (0.76-1.46); Thyroid Stim Hormone (TSH) 0.05 uIU/mL (0.358-3.74)
[2020-12-06 15:02] LABS: Lactic Acid 1.8 mmol/L (0.4-1.9)
[2020-12-06] MEDS: Ceftriaxone 1 GM/50 ML BAG IV (15:14)
[2020-12-06] MEDS: Enoxaparin 100 MG/ML Syringe 90 MG SC ×2 (15:18→23:07)
[2020-12-06] MEDS: 0.9% Normal Saline 1,000 ML 100 ML IV (15:55)
[2020-12-06 17:02] LABS: Free T3 2.2 pg/mL (2.18-3.98); T4 Total, Thyroxin 11.4 ug/dL (4.5-12.1)
[2020-12-06 17:48] LABS: PSA,Total- Diagnostic 3.14 ng/mL (0.0-4.0)
[2020-12-06] MEDS: Atorvastatin Calcium 40 MG Tablet PO (20:35)
[2020-12-06] MEDS: Famotidine 20 MG Tablet PO (20:35)
[2020-12-06] MEDS: MELATONIN 10 MG TABLET PO (23:07)
[2020-12-07] VITALS (10 sets, daily range): BP systolic 120–164; BP diastolic 58–80; PULSE 84–106; RESP 14–20; TEMP 37.2–37.5; O2SAT 96–97
[2020-12-07] MEDS: 0.9% Normal Saline 1,000 ML 100 ML IV (02:15)
[2020-12-07 07:48] LABS: ALB/GLOB Ratio 0.7 RATIO (0.9-2.4); AST(SGOT) 32 U/L (15-37); Alanine Aminotransfer ALT/SGPT 37 U/L (16-61); Albumin, Serum 2.7 g/dL (3.2-5.0); Alkaline Phosphatase 100 U/L (45-117); Anion Gap 8 (5-15); BUN 15 mg/dL (7-18); BUN/Creat Ratio 15.8 RATIO (10-20); Calcium,Total 8.1 mg/dL (8.5-10.1); Chloride 104 mmol/L (98-107); Creatinine, Serum 0.95 mg/dL (0.70-1.30); EST Glomerular Filtration Rate 85 mL/min (>60); Est Glom Filt Rate - Afr Amer 102 mL/min (>60); Estimated Creatinine Clearance 83.67 ml/min; Globulin 4.1 g/dL (2.2-4.2); Glucose 102 mg/dL (74-106); Potassium 3.9 mmol/L (3.5-5.1); Protein, Total 6.8 g/dL (6.4-8.2); Sodium Level 135 mmol/L (136-145)
[2020-12-07 07:55] LABS: Absolute Lymphocyte Count 0.81 X10^3/uL (0.83-4.51); Absolute Neutrophil Count 9.2 X10^3/uL (2.0-7.7); Basophil# 0.03 X10^3/uL; Basophil% 0.3 % (0-1); Eosinophil# 0.03 X10^3/uL; Eosinophils% 0.3 % (0-5); Hematocrit 43.1 % (40-54); Hemoglobin 13.4 g/dL (13.0-16.5); Lymphocyte # 0.81 X10^3/ul (0.83-4.51); Lymphocyte % 7.1 % (19-41); Mean Corp Hgb Conc 31.1 g/dL (32-36); Mean Corpuscular Hgb 29.5 pg (27.0-32.0); Mean Corpuscular Volume 94.7 fL (80-94); Mean Platelet Vol. 9.7 fl (6.2-12.0); Monocyte# 1.23 X10^3/uL; Monocyte% 10.8 % (0-10); NRBC Flagged by Analyzer 0 % (0-5); Neutrophil % 81.1 % (47-70); Platelet Count 164 K/mm3 (150-450); RBC Distribution Width CV 13.1 % (11.6-14.6); RBC Distribution Width SD 45.5 fl (35.1-43.9); Red Blood Count 4.55 M/mm3 (4.6-6.2); White Blood Count 11.4 K/mm3 (4.4-11.0)
[2020-12-07] MEDS: Ceftriaxone 1 GM/50 ML BAG IV (10:20)
[2020-12-07] MEDS: Famotidine 20 MG Tablet PO ×2 (10:31→21:14)
[2020-12-07] MEDS: Tamsulosin HCl 0.4 MG Capsule PO (10:31)
[2020-12-07] MEDS: Ferrous Sulfate 325 MG Tablet PO (10:31)
[2020-12-07] MEDS: Enoxaparin 100 MG/ML Syringe 90 MG SC ×2 (10:31→21:13)
[2020-12-07] MEDS: Metoprolol(XL)Succ 25 MG Tablet PO (10:31)
[2020-12-07] MEDS: Losartan Potassium 25 MG Tablet PO (10:31)
--- NOTE | 2020-12-07 10:55 | CASEMGMT ---
JUVE BARTHOLOMEW Assessment: Face to Face with pt for initial transition planning/care coordination assessment. JUVE BARTHOLOMEW introduced self and role at [facility], pt voices understanding and consents to assessment. Pt is A/O x4 and answers all questions appropriately at this time. Care providers, pharmacy, and demographics verified/updated. Admitting Dx: PE's, pna PCP: [facility] Specialists: Judith, neuro; SUZI Monsalve Preferred [facility]acy[facility] Insurance: MMO Prescription Benefit: yes LW/HPOA: Pt states he does have a LW and DPOA. His DPOA is his , Miesha Wooten. Pt is aware that is not on file at [facility] and he may bring in. LNOK: Miesha Wooten, Living Arrangements: Pt lives with in a two story house with 4 steps to enter with a rail. Pt states he was I in ADL's. States since Sunday he has felt extremely weak. Pt denies concerns at home. Transportation: Pt drives self and has no concerns with transportation. DME/HHC/SNF: Pt reports having a cane, walker, grab bar in the shower with a shower seat, handles over toilet and BIPAP through [facility]. Pt denies any previous HHC or SNF stays. Pt states he care for his at home and she depends on him. Pt states no concerns with going home at time of dc unless his weakness does not improve. States he may need some therapy. Pt states his balance has not been normal for awhile now. Pt states no further concerns/needs. CM to follow for therapy needs. Advised pt to ask CM if any further question/concerns/needs arise, voices understanding. Pt Goal: Home Plan: Home with family support
--- NOTE | 2020-12-07 12:00 | CT_ITS ---
STUDY: CT ABDOMEN AND PELVIS WITH CONTRAST REASON FOR EXAM: Male, 65 years old. Unprovoked PEs, history of benign thyroid nodule -- Rule out malignancy RADIATION DOSAGE (If Supplied By Facility): CTDIvol = ( 14.36 ) mGy, DLP = ( 1682.88 ) mGycm TECHNIQUE: Transaxial images were obtained from the dome of the diaphragm to the symphysis pubis without oral contrast. IV 100mL Isovue-300 was administered. Sagittal and coronal images were reconstructed. Individualized dose optimization techniques were used for this CT. COMPARISON: None. FINDINGS: Small right pleural effusion with right basilar atelectasis and/or infiltrate. Minimal left pleural thickening with the mild left basilar atelectasis. The visualized portions of the heart are within normal limits. There is decreased attenuation of the liver consistent with steatosis. Multiple small gallstones are layering. Normal spleen. Normal pancreas. Normal bilateral adrenal glands. Atrophy of the right kidney. Punctate calculus in the lower pole of the right kidney. 2 cm cyst in the anterior upper aspect of the left kidney. 2 mm nonobstructive calculus in the lower pole of the left kidney. Nonspecific mild degree of bilateral perinephric stranding. Normal visualized stomach. Normal small intestine. There are multiple colonic diverticula consistent with diverticulosis. The appendix is visualized and appears normal. Normal abdominal aorta. Normal inferior vena cava. Normal retroperitoneum. Tiny calculus is seen at the base of the bladder on the right side. There is a 1.3 cm x 1 cm calculus at the right ureterovesical junction. There is enlargement of the prostate gland. It measures 4.4 cm x 5.5 cm. This causes indentation at the bladder base. Questionable 2.2 cm x 2.4 cm polypoid mass at the base of the bladder more prominent on the left side. Normal abdominal wall. There are diffuse degenerative changes of the visualized lumbar spine. CT/Abdomen/Pelvis W IV Cont ONLY IMPRESSION: Small right pleural effusion with right basilar atelectasis and/or infiltrate. Minimal left pleural thickening and mild left basilar atelectasis. Multiple small gallstones. Atrophy of the right kidney with a punctate calculus in the lower pole calyx of the right kidney. 2. Sinus cyst in the anterior upper aspect of the left kidney. 2 mm nonobstructive cup is in the lower pole calyx of the left kidney. 1.3 cm x 1 cm calculus at the right ureterovesical junction. The static enlargement with indentation at the bladder base and possible polypoid mass at the recent the bladder. Electronically Signed: Jorge Ellis MD at 13:06 EDT , Service support ,
[2020-12-07] MEDS: Acetaminophen 325 MG Tablet 650 MG PO (16:19)
--- NOTE | 2020-12-07 17:17 | PCM.PN.HOSP ---
Documented by User: Blank Lloyd NP, DIGITAL MEDIA DIRECTOR-C 12/07/20 17:25 Subjective Subjective: Patient seen and examined. Reports improvement in shortness of breath. Complains of intermittent abdominal pain. No other symptoms or complaints. Objective Data Objective Data Vital Signs: Vital Signs Temp Pulse Resp BP Pulse Ox 99.1 F 98 18 147/73 H 97 12/07/20 15:05 12/07/20 15:05 12/07/20 15:05 12/07/20 15:05 12/07/20 16:06 Oxygen Flow Rate (L/min) 3 Oxygen Delivery Method Nasal Cannula Weight: 194 lb 0.108 oz Body Mass Index (BMI) 27.0 Finger Stick Blood Glucose 98 Intake & Output: Intake and Output for Last 24 Hours 12/05/20 12/06/20 12/07/20 23:59 23:59 23:59 Intake Total 1305 / 1305 2305 / 2305 Output Total 250 / 250 350 / 350 Balance 1055 / 1055 1955 / 1955 Lab / Micro Data Result Diagrams: 12/08/20 05:18 12/08/20 05:18 Labs: Laboratory Results - last 24 hr 12/06/20 12/07/20 12/07/20 11:00 06:03 06:03 WBC 11.4 H RBC 4.55 L Hgb 13.4 Hct 43.1 MCV 94.7 H MCH 29.5 MCHC 31.1 L RDW Std Deviation 45.5 H RDW Coeff of Inés 13.1 Plt Count 164 MPV 9.7 Immature Gran % (Auto) 0.400 Neut % (Auto) 81.1 H Lymph % (Auto) 7.1 L [place] % (Auto) 10.8 H Eos % (Auto) 0.3 Baso % (Auto) 0.3 Absolute Neuts (auto) 9.2 H Absolute Lymphs (auto) 0.81 L Nucleated RBC % 0 Sodium 135 L Potassium 3.9 Chloride 104 Carbon Dioxide 23.0 Anion Gap 8 BUN 15 Creatinine 0.95 Estim Creat Clear Calc 83.67 Est GFR (MDRD) Af Amer 102 Est GFR (MDRD) Non-Af 85 BUN/Creatinine Ratio 15.8 Glucose 102 Calcium 8.1 L Total Bilirubin 1.60 H AST 32 ALT 37 Alkaline Phosphatase 100 Total Protein 6.8 Albumin 2.7 L Globulin 4.1 Albumin/Globulin Ratio 0.7 L Total PSA 3.14 Micro: Microbiology 12/06/20 14:13 Mucosa - Nose SARS-CoV-2 Antigen (Rapid) - Final Radiography Diagnostic Testing: Radiology Impression Abdomen/Pelvis CT 12/07/20 12:00 IMPRESSION: Small right pleural effusion with right basilar atelectasis and/or infiltrate. Minimal left pleural thickening and mild left basilar atelectasis. Multiple small gallstones. Atrophy of the right kidney with a punctate calculus in the lower pole calyx of the right kidney. 2. Sinus cyst in the anterior upper aspect of the left kidney. 2 mm nonobstructive cup is in the lower pole calyx of the left kidney. 1.3 cm x 1 cm calculus at the right ureterovesical junction. The static enlargement with indentation at the bladder base and possible polypoid mass at the recent the bladder. Electronically Signed: Jorge Ellis MD at 13:06 EDT , Service support , Physical Exam Const alert, oriented x3 and no apparent distress Eyes PERRL, EOMs intact bilaterally and conjunctivae normal Neck no lymphadenopathy Resp normal respiratory effort and clear to auscultation bilaterally Cardio regular rate, regular rhythm and no murmurs Peripheral Pulses: pulses 2+ throughout GI normal to inspection, nondistended, normoactive bowel sounds Extremity normal to inspection Peripheral Pulses: Yes pulses 2+ throughout Skin no rashes or lesions noted Neuro oriented x3, no focal motor deficits and no sensory deficits noted Sensorium / Orientation: awake and alert Psych affect normal Assessment & Plan Assessment/Plan (1) Bilateral pulmonary embolism: Status: Acute Code(s): I26.99 - Other pulmonary embolism without acute cor pulmonale (2) Pneumonia: Status: Acute Code(s): J18.9 - Pneumonia, unspecified organism (3) Thyroid enlargement: Status: Chronic Code(s): E04.9 - Nontoxic goiter, unspecified Plan: 1. Multiple bilateral acute PE, unprovoked-on therapeutic Lovenox. Plan to transition to oral anticoagulation in a.m. 2. Acute community-acquired pneumonia-on IV Rocephin and IV azithromycin. Albuterol DuoNeb aerosols. 3. Acute hypoxic respiratory insufficiency-secondary to #1/#2. Continue treatment per above. Supplemental oxygen to maintain O2 at above 90%. Walking pulse ox prior to discharge. 4. History of multinodular goiter-CTA showed markedly enlarged left lobe of the thyroid. Oncology consulted. CT abdomen for further cancer eval demonstrated possible polypoid mass of the bladder. Will need further outpatient follow up. 5. Hypertension-stable, continue beta-norma, ARB. 6. Hyperlipidemia-continue statin. 7. BPH-continue Flomax. DVT prophylaxis-Lovenox subcu This patient was seen by DMITRY LopezC under the supervision of Dr. Garibay. Documented by User: Dr. Pb Garibay MD 12/08/20 13:15 Objective Data Lab / Micro Data Result Diagrams: 12/08/20 05:18 12/08/20 05:18 Addendum: Dr. Garibay I personally examined the patient and reviewed the chart. I agree with the above. 65-year-old male with enlarged thyroid that has had a FNA in the past and said that it was benign presents to the hospital with acute shortness of breath. He was found to have a right lower lobe pneumonia as well as bilateral pulmonary embolisms. He was started on therapeutic Lovenox and is doing well today. There was some concern for possible cancer so heme-onc were consulted for evaluation. CT of the abdomen pelvis are pending. He is breathing well today maintaining his oxygen sats on 2 to 3 L nasal cannula. Inpatient E&M: 90138 Subs Hosp L2
[2020-12-07] MEDS: Atorvastatin Calcium 40 MG Tablet PO (21:14)
[2020-12-07] MEDS: MELATONIN 10 MG TABLET PO (21:14)
[2020-12-08] VITALS (7 sets, daily range): BP systolic 128–148; BP diastolic 72–76; PULSE 70–102; RESP 16–18; TEMP 36.7–36.9; O2SAT 95–99
[2020-12-08] MEDS: Acetaminophen 325 MG Tablet 650 MG PO (03:27)
[2020-12-08 05:37] LABS: Absolute Lymphocyte Count 0.98 X10^3/uL (0.83-4.51); Absolute Neutrophil Count 5.4 X10^3/uL (2.0-7.7); Basophil# 0.03 X10^3/uL; Basophil% 0.4 % (0-1); Eosinophil# 0.17 X10^3/uL; Eosinophils% 2.2 % (0-5); Hemoglobin 13.1 g/dL (13.0-16.5); Lymphocyte # 0.98 X10^3/ul (0.83-4.51); Lymphocyte % 12.9 % (19-41); Mean Corpuscular Hgb 29.4 pg (27.0-32.0); Mean Corpuscular Volume 92.1 fL (80-94); Mean Platelet Vol. 9.4 fl (6.2-12.0); Monocyte# 1.04 X10^3/uL; Monocyte% 13.7 % (0-10); NRBC Flagged by Analyzer 0 % (0-5); Neutrophil # 5.35 X10^3/uL (2.7-7.7); Neutrophil % 70.5 % (47-70); Platelet Count 185 K/mm3 (150-450); RBC Distribution Width CV 12.8 % (11.6-14.6); RBC Distribution Width SD 43.6 fl (35.1-43.9); Red Blood Count 4.45 M/mm3 (4.6-6.2); White Blood Count 7.6 K/mm3 (4.4-11.0)
[2020-12-08 05:58] LABS: Anion Gap 5 (5-15); BUN 13 mg/dL (7-18); BUN/Creat Ratio 13.3 RATIO (10-20); Calcium,Total 8.3 mg/dL (8.5-10.1); Chloride 105 mmol/L (98-107); Creatinine, Serum 0.98 mg/dL (0.70-1.30); EST Glomerular Filtration Rate 82 mL/min (>60); Est Glom Filt Rate - Afr Amer 99 mL/min (>60); Estimated Creatinine Clearance 81.11 ml/min; Glucose 104 mg/dL (74-106); Potassium 3.4 mmol/L (3.5-5.1); Sodium Level 136 mmol/L (136-145)
[2020-12-08] MEDS: Losartan Potassium 25 MG Tablet PO (09:00)
[2020-12-08] MEDS: Ferrous Sulfate 325 MG Tablet PO (09:00)
[2020-12-08] MEDS: Ceftriaxone 1 GM/50 ML BAG IV (09:00)
[2020-12-08] MEDS: Famotidine 20 MG Tablet PO (09:00)
[2020-12-08] MEDS: Tamsulosin HCl 0.4 MG Capsule PO (09:00)
[2020-12-08] MEDS: Metoprolol(XL)Succ 25 MG Tablet PO (09:00)
--- NOTE | 2020-12-08 09:00 | CON.PCM.ON_ITS ---
Assessment & Plan Assessment/Plan (1) Bilateral pulmonary embolism: Status: Acute Code(s): I26.99 - Other pulmonary embolism without acute cor pulmonale Plan: -Not clear if provoked but will require minimum 6 months of anticoagulation. Can reevaluate at that time. -Will follow up with PCP for age and gender appropriate cancer screening. -Recommended urologic evaluation for potential bladder polyp/mass. -Recommended endocrinology evaluation for left goiter. (2) Pneumonia: Status: Acute Code(s): J18.9 - Pneumonia, unspecified organism (3) Thyroid enlargement: Status: Chronic Code(s): E04.9 - Nontoxic goiter, unspecified HPI Consult Data Date of Service:: 12/08/20 PCP / Referring Provider: Dr. Erwin Bae MD Attending: Dr. Pb Garibay MD Chief Complaint Chief Complaint: Pulmonary emboli History of Present Illness History of Present Illness: The patient is a 65 yo male with PMH significant for TIA, GI bleed (occurred 06/2018 when on ASA and Plavix; EGD/colonoscopy and capsule endoscopy significant for old blood and clots in colon and terminal ilium; bleeding attributed to diverticular bleeding) and ulcerative colitis (was on sulfasalazine for ~15 years but stopped quite a while ago). Admitted this week after presenting with c/o feeling poorly and chest pain. CTA results noted and images personally reviewed. Endorses today that for the last 2 months he's been sleeping in his office chair/recliner in order to help his who broke her arm in September from a fall on the stairs. Feeling much better today after having a night sweat last evening--feels like the, pneumonia broke. Chest pain resolved. No bleeding issues currenly. Not feeling short of breath at rest. Advanced Directives Power of Oncology Account Specialist: No Living Will: No [facility] Medical History (Updated 12/06/20 @ 14:[address] Edith Rodriguez MD) BPH (benign prostatic hyperplasia) GI bleed Lymph node enlargement Multiple thyroid nodules Nephrolithiasis TIA (transient ischemic attack) Ulcerative colitis Home Medications coenzyme Q10 100 mg PO DAILY 05/28/18 [History Last Taken 12/05/20] melatonin-pyridoxine (vit B6) 10 mg PO QHS 05/28/18 [History Last Taken 12/05/20] tamsulosin 0.4 mg PO DAILY 05/28/18 [History Last Taken 12/05/20] cranberry extract 250 mg capsule 400 mg PO DAILY cap 06/28/20 [History Last Taken 12/04/20] dipyridamole 25 mg tablet 25 mg PO TID 06/28/20 [History Last Taken 12/05/20] famotidine 20 mg tablet 20 mg PO BID 06/28/20 [History Last Taken 12/05/20] ferrous sulfate 27 mg iron tablet 18 mg PO DAILY tab 06/28/20 [History Last Taken 12/05/20] irbesartan 75 mg tablet 75 mg PO DAILY 06/28/20 [History Last Taken 12/05/20] magnesium oxide 400 mg PO BID cap 06/28/20 [History Last Taken 12/05/20] metoprolol succinate 25 mg tablet,extended release 24 hr 25 mg PO DAILY 06/28/20 [History Last Taken 12/05/20] atorvastatin 40 mg PO QHS 12/06/20 [History Last Taken 12/05/20] multivitamin with minerals 1 tablet PO DAILY 12/06/20 [History Last Taken 12/04/20] apixaban [Eliquis] 10 mg PO BID #72 tab 12/08/20 [Rx Last Taken Unknown] levofloxacin 750 mg PO DAILY #5 tab 12/08/20 [Rx Last Taken Unknown] Allergy/AdvReac Type Severity Reaction Status Date / Time Penicillins Allergy Anaphylaxis Verified 12/06/20 09:09 Surgical History (Updated 12/06/20 @ 10:[address] Roscoe Barger DO) S/P fine needle aspiration Status post biopsy of thyroid gland (~09/2018) Social History (Updated 12/08/20 @ 16:[address] Gordy Lai DO) Smoking Status: Former smoker how long ago did patient quit smoking: Vapes alcohol intake: never substance use type: does not use Physical Exam Chest Chest Narrative: Normal respiratory excursion Cardio Rhythm: regular rhythm Extremity no clubbing, cyanosis or edema Vital Signs: Vital Signs Temperature 98.4 F 12/08/20 03:00 Temperature Source Oral 12/08/20 03:00 Pulse Rate 72 12/08/20 03:00 Pulse Strength Normal (2+) 12/07/20 20:15 Respiratory Rate 16 12/08/20 03:00 Respiratory Effort 12/08/20 03:45 Respiratory Depth Normal 12/08/20 03:45 Respiratory Pattern Normal 12/08/20 03:45 Blood Pressure 141/72 H 12/08/20 03:00 Blood Pressure Mean 95 12/08/20 03:00 Blood Pressure Source Monitor 12/08/20 03:00 Blood Pressure Position Supine 12/08/20 03:00 Blood Pressure Location Right Arm 12/08/20 03:00 Pulse Ox 95 12/08/20 07:10 Oxygen Delivery Method Nasal Cannula 12/08/20 07:10 Oxygen Flow Rate (L/min) 2.5 12/08/20 07:10 Laboratory Data: Microbiology 12/06/20 14:13 SARS-CoV-2 Antigen (Rapid) - Final Mucosa - Nose Laboratory Tests 12/08/20 12/08/20 Range/Units 05:18 05:18 WBC 7.6 (4.4-11.0) K/mm3 RBC 4.45 L (4.6-6.2) M/mm3 Hgb 13.1 (13.0-16.5) g/dL Hct 41.0 (40-54) % MCV 92.1 (80-94) fL MCH 29.4 (27.0-32.0) pg MCHC 32.0 (32-36) g/dL RDW Std Deviation 43.6 (35.1-43.9) fl RDW Coeff of Inés 12.8 (11.6-14.6) % Plt Count 185 (150-450) K/mm3 MPV 9.4 (6.2-12.0) fl Immature Gran % (Auto) 0.300 (0.0-0.9) % Neut % (Auto) 70.5 H (47-70) % Lymph % (Auto) 12.9 L (19-41) % [place] % (Auto) 13.7 H (0-10) % Eos % (Auto) 2.2 (0-5) % Baso % (Auto) 0.4 (0-1) % Absolute Neuts (auto) 5.4 (2.0-7.7) X10^3/uL Absolute Lymphs (auto) 0.98 (0.83-4.51) X10^3/uL Nucleated RBC % 0 (0-5) % Sodium 136 (136-145) mmol/L Potassium 3.4 L (3.5-5.1) mmol/L Chloride 105 (98-107) mmol/L Carbon Dioxide 26.0 (21.0-32.0) mmol/L Anion Gap 5 (5-15) BUN 13 (7-18) mg/dL Creatinine 0.98 (0.70-1.30) mg/dL Estim Creat Clear Calc 81.11 ml/min Est GFR (MDRD) Af Amer 99 (>60) mL/min Est GFR (MDRD) Non-Af 82 (>60) mL/min BUN/Creatinine Ratio 13.3 (10-20) RATIO Glucose 104 (74-106) mg/dL Calcium 8.3 L (8.5-10.1) mg/dL Diagnostic Data: Diagnostic Data Chest X-Ray 12/06/20 10:22 IMPRESSION: Patchy area of atelectasis versus infiltrate in the right middle lobe. Follow-up is recommended. Findings suggestive of enlargement of the left lobe of the thyroid. Electronically Signed: Jorge Ellis MD at 11:04 EDT , Service support , Chest CTA 12/06/20 12:05 IMPRESSION: Multiple bilateral pulmonary emboli. Right lower lobe infiltrate. Mild increased markings in the left lower lobe. Stable enlargement of the thyroid more prominent on the left side Electronically Signed: Jorge Ellis MD at 12:50 EDT , Service support , Abdomen/Pelvis CT 12/07/20 12:00 IMPRESSION: Small right pleural effusion with right basilar atelectasis and/or infiltrate. Minimal left pleural thickening and mild left basilar atelectasis. Multiple small gallstones. Atrophy of the right kidney with a punctate calculus in the lower pole calyx of the right kidney. 2. Sinus cyst in the anterior upper aspect of the left kidney. 2 mm nonobstructive cup is in the lower pole calyx of the left kidney. 1.3 cm x 1 cm calculus at the right ureterovesical junction. The static enlargement with indentation at the bladder base and possible polypoid mass at the recent the bladder. Electronically Signed: Jorge Ellis MD at 13:06 EDT , Service support ,
[2020-12-08] MEDS: APIXABAN 5 MG TABLET 10 MG PO (10:47)
--- NOTE | 2020-12-08 11:35 | PCM.DC ---
Discharge Instructions Outpatient Procedure Reason For Visit: PE'S, PNEUMONIA Diet Discharge Diet: No restrictions Activity Discharge Activity: Return to Normal Activity May resume sexual activity in: No Restrictions Dressing / Incision Call your doctor if you observe: Fever of 101 or Higher, Shortness of breath, Dizziness and Chest pain Follow Up Care Test Results: Test results from this visit will be discussed in further detail at your follow-up appointment, if applicable. Discharge Plan Admission Admit Date/Time: 12/06/20 13:47 Attending Provider: Pb Garibay Primary Care Provider: Erwin Bae Consulting Providers: Gordy Lai Discharge Orders/Prescriptions Prescriptions: New Eliquis 5 mg tablet 10 mg PO BID Qty: 72 RF: 0 levofloxacin 750 mg tablet 750 mg PO DAILY Qty: 5 RF: 0 Continued magnesium oxide 400 mg magnesium capsule 400 mg PO BID RF: 0 dipyridamole 25 mg tablet 25 mg PO TID RF: 0 famotidine [Pepcid] 20 mg tablet 20 mg PO BID RF: 0 ferrous sulfate 27 mg iron tablet 18 mg PO DAILY RF: 0 metoprolol succinate 25 mg tablet extended release 24 hr 25 mg PO DAILY RF: 0 irbesartan 75 mg tablet 75 mg PO DAILY RF: 0 tamsulosin 0.4 MG capsule 0.4 mg PO DAILY RF: 0 coenzyme Q10 100 MG capsule 100 mg PO DAILY RF: 0 melatonin-pyridoxine (vit B6) 1 EACH tablet 10 mg PO QHS RF: 0 cranberry extract 250 mg capsule 400 mg PO DAILY RF: 0 atorvastatin 40 MG tablet 40 mg PO QHS RF: 0 multivitamin with minerals 1 EACH tablet 1 tablet PO DAILY RF: 0 Referrals: Erwin Bae MD [Primary Care Provider] - Alonso Caruso MD [STAFF PHYSICIAN] - In 1 Week Gordy Lai DO [STAFF PHYSICIAN] - Within 2 Weeks Disposition Patient Disposition: Home, self care
--- NOTE | 2020-12-08 12:46 | PCM.DC.SUM ---
Documented by User: Blank Lloyd NP, GUIDE EXCURSION-C 12/08/20 12:53 Providers Date of Admission: 12/06/20 Primary Care Physician: Dr. Erwin Bae MD Consultations 12/06/20 15:47 Physician Consult Routine Consulting Provider: Gordy Lai Consulted Physician Type:: Oncology - [facility] Reason for Consult: Unprovoked PEs, history of benign thyroid nodule, rule out cancer MD Notified: Yes Date Notified:: 12/06/20 Time Notified: 16:05 Method of Notification:: telephone Reason For Visit: PE'S, PNEUMONIA Diagnosis Discharge Diagnosis (1) Bilateral pulmonary embolism: Status: Acute Code(s): I26.99 - Other pulmonary embolism without acute cor pulmonale (2) Pneumonia: Status: Acute Code(s): J18.9 - Pneumonia, unspecified organism (3) Thyroid enlargement: Status: Chronic Code(s): E04.9 - Nontoxic goiter, unspecified Medications at Discharge Home Medications coenzyme Q10 100 mg PO DAILY 05/28/18 melatonin-pyridoxine (vit B6) 10 mg PO QHS 05/28/18 tamsulosin 0.4 mg PO DAILY 05/28/18 cranberry extract 250 mg capsule 400 mg PO DAILY cap 06/28/20 dipyridamole 25 mg tablet 25 mg PO TID 06/28/20 famotidine 20 mg tablet 20 mg PO BID 06/28/20 ferrous sulfate 27 mg iron tablet 18 mg PO DAILY tab 06/28/20 irbesartan 75 mg tablet 75 mg PO DAILY 06/28/20 magnesium oxide 400 mg PO BID cap 06/28/20 metoprolol succinate 25 mg tablet,extended release 24 hr 25 mg PO DAILY 06/28/20 atorvastatin 40 mg PO QHS 12/06/20 multivitamin with minerals 1 tablet PO DAILY 12/06/20 apixaban [Eliquis] 10 mg PO BID #72 tab 12/08/20 levofloxacin 750 mg PO DAILY #5 tab 12/08/20 Hospital Course Operations None Procedures None Summary of Care Provided Minutes Spent on Discharge: 35 Hospital Course: Patient is a 65-year-old male admitted 12/06/2020 due to chest pain. 1. Multiple bilateral acute PE, unprovoked-therapeutic Lovenox during admission. Transition to Eliquis 10 mg twice daily for 7 days followed by 5 mg twice daily. Follow-up with PCP and oncology at discharge. 2. Acute community-acquired pneumonia-on IV Rocephin and IV azithromycin during admission. Discharged on oral Levaquin to complete course given penicillin allergy. 3. Acute hypoxic respiratory insufficiency-secondary to #1/#2. Weaned off of supplemental oxygen. Walking pulse ox completed prior to discharge and patient did not require further supplemental oxygen 4. History of multinodular goiter/bladder polyp-CTA showed markedly enlarged left lobe of the thyroid. Oncology consulted. CT abdomen for further cancer eval demonstrated possible polypoid mass of the bladder. Patient will follow up with oncology and urology at discharge for further outpatient evaluation. 5. Hypertension-stable, continue beta-norma, ARB. 6. Hyperlipidemia-continue statin. 7. BPH-continue Flomax. Physical Exam Const alert, oriented x3 and no apparent distress Eyes PERRL, EOMs intact bilaterally and conjunctivae normal Neck no lymphadenopathy Resp normal respiratory effort and clear to auscultation bilaterally Cardio regular rate, regular rhythm and no murmurs Peripheral Pulses: pulses 2+ throughout GI normal to inspection, nondistended, normoactive bowel sounds Extremity normal to inspection Peripheral Pulses: Yes pulses 2+ throughout Skin no rashes or lesions noted Neuro oriented x3, no focal motor deficits and no sensory deficits noted Sensorium / Orientation: awake and alert Psych affect normal Patient seen and examined prior to discharge. Physical assessment as noted above. Patient is stable for discharge with follow up recommendations as noted above. This patient was seen by SAMAN Lopez under the supervision of Dr. Garibay. ABG / Lab / Microbiology Data Result Diagrams: 12/08/20 05:18 12/08/20 05:18 Laboratory: Laboratory Results - last 24 hr 12/08/20 12/08/20 05:18 05:18 WBC 7.6 RBC 4.45 L Hgb 13.1 Hct 41.0 MCV 92.1 MCH 29.4 MCHC 32.0 RDW Std Deviation 43.6 RDW Coeff of Inés 12.8 Plt Count 185 MPV 9.4 Immature Gran % (Auto) 0.300 Neut % (Auto) 70.5 H Lymph % (Auto) 12.9 L [place] % (Auto) 13.7 H Eos % (Auto) 2.2 Baso % (Auto) 0.4 Absolute Neuts (auto) 5.4 Absolute Lymphs (auto) 0.98 Nucleated RBC % 0 Sodium 136 Potassium 3.4 L Chloride 105 Carbon Dioxide 26.0 Anion Gap 5 BUN 13 Creatinine 0.98 Estim Creat Clear Calc 81.11 Est GFR (MDRD) Af Amer 99 Est GFR (MDRD) Non-Af 82 BUN/Creatinine Ratio 13.3 Glucose 104 Calcium 8.3 L Microbiology: Microbiology 12/06/20 14:13 Mucosa - Nose SARS-CoV-2 Antigen (Rapid) - Final Radiography Diagnostic Testing: Radiology Impression Abdomen/Pelvis CT 12/07/20 12:00 IMPRESSION: Small right pleural effusion with right basilar atelectasis and/or infiltrate. Minimal left pleural thickening and mild left basilar atelectasis. Multiple small gallstones. Atrophy of the right kidney with a punctate calculus in the lower pole calyx of the right kidney. 2. Sinus cyst in the anterior upper aspect of the left kidney. 2 mm nonobstructive cup is in the lower pole calyx of the left kidney. 1.3 cm x 1 cm calculus at the right ureterovesical junction. The static enlargement with indentation at the bladder base and possible polypoid mass at the recent the bladder. Electronically Signed: Jorge Ellis MD at 13:06 EDT , Service support , D/C Instructions Discharge Diet: No restrictions Discharge Activity: Return to Normal Activity May resume sexual activity in: No Restrictions Call your doctor if you observe: Fever of 101 or Higher, Shortness of breath, Dizziness and Chest pain Meaningful Use Info Meaningful Use Diagnoses (Choose all that apply): VTE VTE Anticoag overlap given w/in hospital stay or rx'd at tn?: Yes Pt receive overlap for 5 days?: Yes Discharge Plan Admission Admit Date/Time: 12/06/20 13:47 Attending Provider: Pb Garibay Primary Care Provider: Erwin Bae Consulting Providers: Gordy Lai Discharge Orders/Prescriptions Prescriptions: New Eliquis 5 mg tablet 10 mg PO BID Qty: 72 RF: 0 levofloxacin 750 mg tablet 750 mg PO DAILY Qty: 5 RF: 0 Continued magnesium oxide 400 mg magnesium capsule 400 mg PO BID RF: 0 dipyridamole 25 mg tablet 25 mg PO TID RF: 0 famotidine [Pepcid] 20 mg tablet 20 mg PO BID RF: 0 ferrous sulfate 27 mg iron tablet 18 mg PO DAILY RF: 0 metoprolol succinate 25 mg tablet extended release 24 hr 25 mg PO DAILY RF: 0 irbesartan 75 mg tablet 75 mg PO DAILY RF: 0 tamsulosin 0.4 MG capsule 0.4 mg PO DAILY RF: 0 coenzyme Q10 100 MG capsule 100 mg PO DAILY RF: 0 melatonin-pyridoxine (vit B6) 1 EACH tablet 10 mg PO QHS RF: 0 cranberry extract 250 mg capsule 400 mg PO DAILY RF: 0 atorvastatin 40 MG tablet 40 mg PO QHS RF: 0 multivitamin with minerals 1 EACH tablet 1 tablet PO DAILY RF: 0 Referrals: Ewrin Bae MD [Primary Care Provider] - Alonso Caruso MD [STAFF PHYSICIAN] - In 1 Week Gordy Lai DO [STAFF PHYSICIAN] - Within 2 Weeks Disposition Patient Disposition: Home, self care Documented by User: Dr. Pb Garibay MD 12/08/20 13:23 Providers Date of Admission: 12/06/20 Reason For Visit: PE'S, PNEUMONIA Medications at Discharge Home Medications coenzyme Q10 100 mg PO DAILY 05/28/18 melatonin-pyridoxine (vit B6) 10 mg PO QHS 05/28/18 tamsulosin 0.4 mg PO DAILY 05/28/18 cranberry extract 250 mg capsule 400 mg PO DAILY cap 06/28/20 dipyridamole 25 mg tablet 25 mg PO TID 06/28/20 famotidine 20 mg tablet 20 mg PO BID 06/28/20 ferrous sulfate 27 mg iron tablet 18 mg PO DAILY tab 06/28/20 irbesartan 75 mg tablet 75 mg PO DAILY 06/28/20 magnesium oxide 400 mg PO BID cap 06/28/20 metoprolol succinate 25 mg tablet,extended release 24 hr 25 mg PO DAILY 06/28/20 atorvastatin 40 mg PO QHS 12/06/20 multivitamin with minerals 1 tablet PO DAILY 12/06/20 apixaban [Eliquis] 10 mg PO BID #72 tab 12/08/20 levofloxacin 750 mg PO DAILY #5 tab 12/08/20 ABG / Lab / Microbiology Data Result Diagrams: 12/08/20 05:18 12/08/20 05:18 Discharge Plan Admission Admit Date/Time: 12/06/20 13:47 Attending Provider: Pb Garibay Primary Care Provider: Erwin Bae Consulting Providers: Gordy Lai Discharge Orders/Prescriptions Prescriptions: New Eliquis 5 mg tablet 10 mg PO BID Qty: 72 RF: 0 levofloxacin 750 mg tablet 750 mg PO DAILY Qty: 5 RF: 0 Continued magnesium oxide 400 mg magnesium capsule 400 mg PO BID RF: 0 dipyridamole 25 mg tablet 25 mg PO TID RF: 0 famotidine [Pepcid] 20 mg tablet 20 mg PO BID RF: 0 ferrous sulfate 27 mg iron tablet 18 mg PO DAILY RF: 0 metoprolol succinate 25 mg tablet extended release 24 hr 25 mg PO DAILY RF: 0 irbesartan 75 mg tablet 75 mg PO DAILY RF: 0 tamsulosin 0.4 MG capsule 0.4 mg PO DAILY RF: 0 coenzyme Q10 100 MG capsule 100 mg PO DAILY RF: 0 melatonin-pyridoxine (vit B6) 1 EACH tablet 10 mg PO QHS RF: 0 cranberry extract 250 mg capsule 400 mg PO DAILY RF: 0 atorvastatin 40 MG tablet 40 mg PO QHS RF: 0 multivitamin with minerals 1 EACH tablet 1 tablet PO DAILY RF: 0 Referrals: Erwin Bae MD [Primary Care Provider] - Alonso Caruso MD [STAFF PHYSICIAN] - In 1 Week Gordy Lai DO [STAFF PHYSICIAN] - Within 2 Weeks Disposition Patient Disposition: Home, self care Addendum: Dr. Garibay I personally examined the patient and reviewed the chart. I agree with the above. 65-year-old male with enlarged thyroid that has had a FNA in the past and said that it was benign presents to the hospital with acute shortness of breath. He was found to have a right lower lobe pneumonia as well as bilateral pulmonary embolisms. He was started on therapeutic Lovenox and is doing well today. There was some concern for possible cancer so heme-onc were consulted for evaluation. CT of the abdomen pelvis are pending. He is breathing well today maintaining his oxygen sats on 2 to 3 L nasal cannula. 12/08/2020: Feeling much better today than he did yesterday. He is currently on room air and oxygenating well. He ambulated on room air to 97%. He will be transitioned from his therapeutic Lovenox to Eliquis 10 mg p.o. twice daily for 7 days and then transition to 5 mg p.o. twice daily. He will need to follow-up with hematology as an outpatient. He also had a CT scan of his abdomen and pelvis to evaluate for possible mass he does have a indentation with a possible bladder polyp that he will need to follow-up with urology as an outpatient for cystoscopy and evaluation. I discussed with him plan for discharge today and he expressed understanding of the risks and benefits of going home and would like to go home today. Inpatient E&M: [id number] Disch Hosp
--- NOTE | 2020-12-08 12:58 | CASEMGMT ---
RN [place] noted pt to be dc'd on eliquis. TC to [facility] pharmacy for copay. Copay is $470.24. JUVE BARTHOLOMEW in to pt room to discuss and provide with copay card. Pt appreciative. He states he can afford the med but does not want to pay that much. Pt denies any concerns with going home. No further needs.
--- NOTE | 2020-12-08 14:20 | PHA.DC.MC ---
Pharmacy Service has performed discharge medication reconciliation and counseling for this patient. 1. APIXABAN 10MG PO BID FOR 7 DAYS, THEN 5MG PO BID THEREAFTER 2. LEVOFLOXACIN 750MG PO DAILY FOR 5 DAYS The patient's discharge medication list was reviewed for discrepancies and discrepancies were resolved. Home Medications coenzyme Q10 100 mg PO DAILY 05/28/18 melatonin-pyridoxine (vit B6) 10 mg PO QHS 05/28/18 tamsulosin 0.4 mg PO DAILY 05/28/18 cranberry extract 250 mg capsule 400 mg PO DAILY cap 06/28/20 dipyridamole 25 mg tablet 25 mg PO TID 06/28/20 famotidine 20 mg tablet 20 mg PO BID 06/28/20 ferrous sulfate 27 mg iron tablet 18 mg PO DAILY tab 06/28/20 irbesartan 75 mg tablet 75 mg PO DAILY 06/28/20 magnesium oxide 400 mg PO BID cap 06/28/20 metoprolol succinate 25 mg tablet,extended release 24 hr 25 mg PO DAILY 06/28/20 atorvastatin 40 mg PO QHS 12/06/20 multivitamin with minerals 1 tablet PO DAILY 12/06/20 apixaban [Eliquis] 10 mg PO BID #72 tab 12/08/20 levofloxacin 750 mg PO DAILY #5 tab 12/08/20 The patient was counseled on the following discharge medications and changes in medications for homegoing were reviewed. The Reason for Use, instructions for use, and potential side effects were reviewed for all new medications. The patient's questions regarding all of their medications were answered. The patient was able to verbally demonstrate an understanding of their discharge medications.
[2020-12-08 17:13] LABS: Anti-Cardiolipin Ab, IgG, Qn < 9 GPL U/mL (0-14); Anti-Cardiolipin Ab, IgM, Qn < 9 MPL U/mL (0-12)
[2020-12-09 19:45] LABS: Antithrombin 3 Function 101 % (75-135); Beta-2-Glycoprotein I IgA >150 (0-25); Beta-2-Glycoprotein I IgG 84 (0-20); Beta-2-Glycoprotein I IgM <9 (0-32)
[2020-12-10 20:08] LABS: Protein C Antigen 88 % (60-150); Protein C, Functional 92 % (73-180)
[2020-12-10 20:26] LABS: Protein S, Free 105 % (57-157); Protein S, Funtional 80 % (63-140); Protein S, Total 87 % (60-150)
== END 2020-12-08 14:26 | disposition home or self-care (01) | DRG 175 ==
LOC: ED 13:27 → PCU 14:31
PROVIDERS: Nurse Practitioner Family; Admitting Provider Hospitalist; Emergency Provider Emergency Medicine; PCP Family Medicine; Visit Provider Family Medicine
DX: I26.99 Other pulmonary embolism without acute cor pulmonale (principal); J18.9 Pneumonia, unspecified organism; K51.90 Ulcerative colitis, unspecified, without complications; E04.1 Nontoxic single thyroid nodule; D41.4 Neoplasm of uncertain behavior of bladder; R09.02 Hypoxemia; R06.89 Other abnormalities of breathing; I10 Essential (primary) hypertension; E78.5 Hyperlipidemia, unspecified; N40.0 Benign prostatic hyperplasia without lower urinary tract symptoms; Z86.73 Personal history of transient ischemic attack (TIA), and cerebral infarction without residual deficits; Z87.442 Personal history of urinary calculi; Z87.19 Personal history of other diseases of the digestive system; F17.290 Nicotine dependence, other tobacco product, uncomplicated; Z79.899 Other long term (current) drug therapy
CPT/HCPCS: 36415; 71045; 71275; 74177; 80048; 80053; 81241; 83605; 83690; 84153; 84436; 84439; 84443; 84481; 84484; 85025; 85300; 85302; 85303; 85305; 85306; 85610; 85730; 86146; 86147; 87040; 87426; 93005; 97162; 97166; 99251; 99285; J7030; Q9967; A4216; G0463; J2405

== ENCOUNTER 2020-12-14 16:08 | Emergency (ER) | payer OTHER, SELFPAY ==
[2020-12-06 14:41] VITALS: BMI 27.0
[2020-12-14] VITALS (8 sets, daily range): BP systolic 125–141; BP diastolic 67–82; PULSE 96–119; RESP 14–20; TEMP 35.8–37; O2SAT 98–100; BMI 27.7
--- NOTE | 2020-12-14 16:14 | EKG12_ITS ---
Test Reason : SYNCOPE Blood Pressure : / mmHG Vent. Rate : 098 BPM Atrial Rate : 098 BPM P-R Int : 158 ms QRS Dur : 090 ms QT Int : 344 ms P-R-T Axes : 056 -12 043 degrees QTc Int : 439 ms Normal sinus rhythm Inferior infarct , age undetermined Abnormal ECG Confirmed by BRIAN ELIZABETH, LUCAS ([id number]), scientific editor SWATHI MONIQUE ([id number]) on 12/15/2020 9:26:52 AM Referred By: ARTEMIO Confirmed By:LUCAS TORRES MD
--- NOTE | 2020-12-14 16:15 | EX.ED.DYSGE1 ---
HPI History of Present Illness Chief Complaint: Syncope Informant: patient and EMS Onset/Context/Timing Onset: Hours Context: Sudden Onset Timing: Intermittent Current Severity: Mild Maximum Severity: Severe Worsened by: Saw on the floor after mechanical fall Relieved by: Nothing Associated Symptoms Associated Symptoms: Hypotension, pallor, diaphoresis and unresponsiveness Narrative Narrative: Patient is a 65-year-old male who was admitted last week for community-acquired pneumonia and pulmonary embolus. He is presently on Eliquis. He was in a chair when he became unresponsive. There is no history of fall to the ground. He did not hit his head. He did not experience chest pain or shortness of breath prior to this. Prehospital EKG reveals slight J-point elevation and abnormal ST segment with loss of concavity in lead II only. This was compared to EKG performed prehospital by EMS and EKG once upon patient's arrival. When the prehospital EKG was obtained he was hypotensive. He does report dyspnea on exertion and mild chest pain on exertion past week which he attributed to the pulmonary embolus. He denies headache. He denies visual, ocular auditory symptoms. Has trouble speech or swallowing. He denies chest pain, shortness of breath. He denies black or maroon-colored stool. He denies any leg pain, swelling or discoloration. Prior similar symptoms: No Recent Illness/Hospitalization: Yes [facility] Medical History BPH (benign prostatic hyperplasia) GI bleed Lymph node enlargement Multiple thyroid nodules Nephrolithiasis TIA (transient ischemic attack) Ulcerative colitis Home Medications coenzyme Q10 100 mg PO DAILY 05/28/18 [History Last Taken 12/05/20] melatonin-pyridoxine (vit B6) 10 mg PO QHS 05/28/18 [History Last Taken 12/05/20] tamsulosin 0.4 mg PO DAILY 05/28/18 [History Last Taken 12/05/20] cranberry extract 250 mg capsule 400 mg PO DAILY cap 06/28/20 [History Last Taken 12/04/20] dipyridamole 25 mg tablet 25 mg PO TID 06/28/20 [History Last Taken 12/05/20] famotidine 20 mg tablet 20 mg PO BID 06/28/20 [History Last Taken 12/05/20] ferrous sulfate 27 mg iron tablet 18 mg PO DAILY tab 06/28/20 [History Last Taken 12/05/20] irbesartan 75 mg tablet 75 mg PO DAILY 06/28/20 [History Last Taken 12/05/20] magnesium oxide 400 mg PO BID cap 06/28/20 [History Last Taken 12/05/20] metoprolol succinate 25 mg tablet,extended release 24 hr 25 mg PO DAILY 06/28/20 [History Last Taken 12/05/20] atorvastatin 40 mg PO QHS 12/06/20 [History Last Taken 12/05/20] multivitamin with minerals 1 tablet PO DAILY 12/06/20 [History Last Taken 12/04/20] apixaban [Eliquis] 10 mg PO BID #72 tab 12/08/20 [Rx Last Taken Unknown] Allergy/AdvReac Type Severity Reaction Status Date / Time Penicillins Allergy Anaphylaxis Verified 12/06/20 09:09 Surgical History S/P fine needle aspiration Status post biopsy of thyroid gland (~09/2018) no surgical history Social History household members: spouse housing: house number of children: 3 Smoking Status: Current every day smoker how long ago did patient quit smoking: Vapes alcohol intake: never substance use type: does not use ROS ROS ED Constitutional Constitutional ED: Denies chills, fever(s) or subjective Eyes Eyes: Denies blurry vision, change in vision or diplopia ENT ENT ED: Reports other Details: Denies epistaxis. ; Denies ear pain, rhinorrhea or sore throat Cardiovascular Cardiovascular: Denies chest pain, palpitations or racing heartbeat Respiratory/Chest Respiratory/Chest: Reports dyspnea on exertion; Denies cough, dyspnea or sputum Gastrointestinal Gastrointestinal: Denies abdominal pain, diarrhea, melena, nausea, vomiting or other Genitourinary Genitourinary ED: Denies dysuria, hematuria or urinary frequency Musculoskeletal Musculoskeletal: Denies arthralgias, myalgias or neck pain Integumentary Denies rash Neurologic Neurologic: Denies headache(s) or weakness Allergic/Immunologic Allergic/Immunologic ED: Denies mouth swelling, tongue swelling or urticaria EXAM Physical Exam Const Vital Signs: 12/14/20 16:10 12/14/20 16:14 12/14/20 17:05 Temperature 96.4 F L Temperature Source Temporal Pulse Rate 98 96 97 Respiratory Rate 16 16 14 Respiratory Effort Normal Respiratory Pattern Normal Blood Pressure 125/67 H 125/67 H 137/67 H Blood Pressure Mean 86 86 90 Pulse Ox 99 98 100 Oxygen Delivery Method Room Air Room Air Room Air 12/14/20 18:07 12/14/20 19:14 12/14/20 19:43 Temperature 98.6 F Temperature Source Oral Pulse Rate 105 H 112 H 108 H Respiratory Rate 15 20 H 18 Respiratory Effort Respiratory Pattern Blood Pressure 130/80 H 126/77 H 141/82 H Blood Pressure Mean 96 93 101 Pulse Ox 98 99 98 Oxygen Delivery Method Room Air Room Air Room Air 12/14/20 20:21 Temperature Temperature Source Pulse Rate 115 H Respiratory Rate 18 Respiratory Effort Respiratory Pattern Blood Pressure 134/77 H Blood Pressure Mean 96 Pulse Ox 99 Oxygen Delivery Method Room Air Positive well nourished and well developed General Appearance ED: well developed, diaphoretic, pallor and other Patient is very pale in appearance. HEENT Reports moist mucous membranes Negative for trauma or tenderness Eyes PERRL and EOMs intact bilaterally General Eye ED: Negative for pale conjunctiva or scleral icterus Neck No no lymphadenopathy, No supple and No no JVD Chest Wall inspection of chest normal and palpation of chest normal Resp normal respiratory effort and clear to auscultation bilaterally Effort and Inspection: Negative for pain with movement Cardio regular rate, regular rhythm, S1 normal heart sound, S2 normal heart sound and no murmurs GI normal to inspection, nondistended, normoactive bowel sounds; Negative for hepatosplenomegaly Palpation: soft Back/Spine no CVA tenderness Cervical Spine: Negative for cervical spine tenderness Extremity normal to inspection General Extremety ED: Negative for edema or tenderness General Extremity: Negative for edema Neuro oriented x3, CN's II-XII intact bilaterally and no sensory deficits noted Sensorium / Orientation: alert Motor Exam: strength 5/5 throughout Psych mental status grossly normal Skin no rashes or lesions noted General Skin Exam: pallor MDM MDM MDM Narrative Medical decision making narrative: Since there is no history of trauma or concern for head trauma CT of the head is not indicated. Since there is concern for ST segment abnormality in lead II and this may represent cardiac ischemia since he was hypotensive the time EKG was obtained upon arrival as well as appropriate blood work to assess for anemia, renal function and troponin. Will obtain a 3-hour troponin and then discuss case with cardiology. Suspect patient had a vasovagal episode because of his 's fall and and he seeing her unresponsive based on his vital signs and description. I was informed when patient attempted to stand up to use the restroom he became pale diaphoretic and almost passed out. Patient's labs were reviewed again and compared to most recent labs from last week. There is no significant drop in his H&H and there is a rise in BUN and creatinine however his ratio is less than 20-1. Patient did use the restroom and has maroon-red watery stool. He denies abdominal pain or nausea and is had no vomiting. Suspect he is lower GI bleed due to diverticulosis. 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 Reluctant to reverse Eliquis because of recent pulmonary embolus diagnosed last week and the fact that he has pneumonia as well. His repeat troponin is normal. Patient appears much better after lying down in supine position. He was informed that he will require transfer. Will discuss with accepting gauger delivery reversing Eliquis in light of his recent pulmonary embolus. Spoke with gauger delivery on-call at [facility]. She has accepted patient. She did not wish for patient be reversed. She was informed of his last set of vital signs. He will receive an additional fluid bolus. He is tachycardic. Lab Data Labs: Laboratory Results - last 24 hr 12/14/20 12/14/20 12/14/20 16:15 16:15 19:12 WBC 8.9 RBC 4.20 L Hgb 12.5 L Hct 39.4 L MCV 93.8 MCH 29.8 MCHC 31.7 L RDW Std Deviation 46.3 H RDW Coeff of Inés 13.3 Plt Count 350 MPV 9.0 Immature Gran % (Auto) 0.400 Neut % (Auto) 68.0 Lymph % (Auto) 20.2 [place] % (Auto) 9.0 Eos % (Auto) 2.0 Baso % (Auto) 0.4 Absolute Neuts (auto) 6.1 Absolute Lymphs (auto) 1.80 Nucleated RBC % 0 PT INR APTT Sodium 140 Potassium 4.2 Chloride 108 H Carbon Dioxide 27.0 Anion Gap 5 BUN 24 H Creatinine 1.41 H Estim Creat Clear Calc 56.37 Est GFR (MDRD) Af Amer 65 Est GFR (MDRD) Non-Af 54 L BUN/Creatinine Ratio 17.0 Glucose 115 H Calcium 8.5 Troponin I < 0.015 < 0.015 12/14/20 19:55 WBC RBC Hgb Hct MCV MCH MCHC RDW Std Deviation RDW Coeff of Inés Plt Count MPV Immature Gran % (Auto) Neut % (Auto) Lymph % (Auto) [place] % (Auto) Eos % (Auto) Baso % (Auto) Absolute Neuts (auto) Absolute Lymphs (auto) Nucleated RBC % PT 19.1 H INR 1.7 APTT 37.5 H Sodium Potassium Chloride Carbon Dioxide Anion Gap BUN Creatinine Estim Creat Clear Calc Est GFR (MDRD) Af Amer Est GFR (MDRD) Non-Af BUN/Creatinine Ratio Glucose Calcium Troponin I Critical Care Time Critical care time (excluding procedures): 30-74 minutes (Total critical care time 37 minutes which included obtaining history, physical exam, documentation review of prior records), Discussing w/Patient &/or Family/Ultrasound Spec, Discussing w/Consultants and Arranging Admission or Transfer Discharge Plan Triage Chief Complaint: Syncope ED Provider: Raoul Roussaeu Dx/Rx/DC Orders Clinical Impression: Nontraumatic hemorrhagic shock, Acute lower gastrointestinal hemorrhage, Pulmonary emboli, Sinus tachycardia, Acute kidney insufficiency, Anticoagulant causing adverse effect in therapeutic use Prescriptions: No Action magnesium oxide 400 mg magnesium capsule 400 mg PO BID RF: 0 dipyridamole 25 mg tablet 25 mg PO TID RF: 0 famotidine [Pepcid] 20 mg tablet 20 mg PO BID RF: 0 ferrous sulfate 27 mg iron tablet 18 mg PO DAILY RF: 0 metoprolol succinate 25 mg tablet extended release 24 hr 25 mg PO DAILY RF: 0 irbesartan 75 mg tablet 75 mg PO DAILY RF: 0 tamsulosin 0.4 MG capsule 0.4 mg PO DAILY RF: 0 coenzyme Q10 100 MG capsule 100 mg PO DAILY RF: 0 melatonin-pyridoxine (vit B6) 1 EACH tablet 10 mg PO QHS RF: 0 cranberry extract 250 mg capsule 400 mg PO DAILY RF: 0 atorvastatin 40 MG tablet 40 mg PO QHS RF: 0 multivitamin with minerals 1 EACH tablet 1 tablet PO DAILY RF: 0 Eliquis 5 mg tablet 10 mg PO BID Qty: 72 RF: 0 Primary Care Provider: Erwin Bae Referrals: Erwin Bae MD [Primary Care Provider] - Disposition Disposition: Acute Care Hospital Discharge Location: [facility]
[2020-12-14 16:46] LABS: Absolute Neutrophil Count 6.1 X10^3/uL (2.0-7.7); Basophil# 0.04 X10^3/uL; Basophil% 0.4 % (0-1); Eosinophil# 0.18 X10^3/uL; Hematocrit 39.4 % (40-54); Hemoglobin 12.5 g/dL (13.0-16.5); Lymphocyte % 20.2 % (19-41); Mean Corp Hgb Conc 31.7 g/dL (32-36); Mean Corpuscular Hgb 29.8 pg (27.0-32.0); Mean Corpuscular Volume 93.8 fL (80-94); NRBC Flagged by Analyzer 0 % (0-5); Neutrophil # 6.05 X10^3/uL (2.7-7.7); Platelet Count 350 K/mm3 (150-450); RBC Distribution Width CV 13.3 % (11.6-14.6); RBC Distribution Width SD 46.3 fl (35.1-43.9); White Blood Count 8.9 K/mm3 (4.4-11.0)
[2020-12-14 17:04] LABS: Anion Gap 5 (5-15); BUN 24 mg/dL (7-18); Calcium,Total 8.5 mg/dL (8.5-10.1); Chloride 108 mmol/L (98-107); Creatinine, Serum 1.41 mg/dL (0.70-1.30); EST Glomerular Filtration Rate 54 mL/min (>60); Est Glom Filt Rate - Afr Amer 65 mL/min (>60); Estimated Creatinine Clearance 56.37 ml/min; Glucose 115 mg/dL (74-106); Potassium 4.2 mmol/L (3.5-5.1); Sodium Level 140 mmol/L (136-145)
[2020-12-14 20:20] LABS: International Normalized Ratio 1.7; Prothrombin Time (Protime)PT. 19.1 SECONDS (11.7-14.9)
[2020-12-14 20:21] LABS: Partial Thromboplast Time 37.5 Seconds (24.1-36.2)
[2020-12-14 20:37] LABS: Lactic Acid 2.4 mmol/L (0.4-1.9)
[2020-12-14] MEDS: 0.9% Normal Saline 1,000 ML 1000 ML IV (20:41)
--- NOTE | 2020-12-14 21:24 | ED.RN ---
Updated on admission to [facility].
[2020-12-14 23:44] LABS: Reflex Lactate? N
== END 2020-12-14 21:00 | disposition short-term general hospital (02) ==
PROVIDERS: Emergency Provider Emergency Medicine; PCP Family Medicine
DX: R57.8 Other shock (principal); K92.2 Gastrointestinal hemorrhage, unspecified; I26.99 Other pulmonary embolism without acute cor pulmonale; R00.0 Tachycardia, unspecified; N28.9 Disorder of kidney and ureter, unspecified; T45.515A Adverse effect of anticoagulants, initial encounter; Y92.9 Unspecified place or not applicable; N40.0 Benign prostatic hyperplasia without lower urinary tract symptoms; E04.2 Nontoxic multinodular goiter; K51.90 Ulcerative colitis, unspecified, without complications; Z86.73 Personal history of transient ischemic attack (TIA), and cerebral infarction without residual deficits; Z87.01 Personal history of pneumonia (recurrent); Z79.01 Long term (current) use of anticoagulants; Z79.899 Other long term (current) drug therapy; F17.200 Nicotine dependence, unspecified, uncomplicated
CPT/HCPCS: 36415; 80048; 83605; 84484; 85025; 85610; 85730; 86850; 86900; 86901; 93005; 96360; 99285; J7030; J7040; A4216

== ENCOUNTER → 2021-03-29 | Outpatient (CLI) | payer OTHER, SELFPAY ==
[2020-12-14 16:10] VITALS: BMI 27.7
[2021-03-29 15:06] LABS: International Normalized Ratio 1.4
== END | disposition home or self-care (01) ==
LOC: LABSPEC 14:51
PROVIDERS: PCP Family Medicine; Referring Provider Internal Medicine Hematology & Oncology; Visit Provider Internal Medicine Hematology & Oncology
DX: D68.61 Antiphospholipid syndrome (principal)
CPT/HCPCS: 85610

== ENCOUNTER 2021-10-20 11:27 | Outpatient (CLI) | payer MEDICARE, BC, OTHER, SELFPAY ==
[2021-10-20 15:43] LABS: Hemoglobin A1c 5.5 % (3.8-5.6)
== END 2021-10-20 23:59 | disposition home or self-care (01) ==
PROVIDERS: PCP Family Medicine; Referring Provider Family Medicine; Visit Provider Nurse Practitioner Family
DX: Z13.1 Encounter for screening for diabetes mellitus (principal)
CPT/HCPCS: 36415; 83036

== ENCOUNTER 2021-11-01 07:06 | Outpatient (CLI) | payer MEDICARE, BC, SELFPAY ==
--- NOTE | 2021-11-01 19:00 | MRI_ITS ---
STUDY: MRA OF THE HEAD WITHOUT CONTRAST REASON FOR EXAM: Male, 66 years old. change in speech and coordination, acute onset, concdern tumor/in TECHNIQUE: 3-D [id number] (TOF) imaging was performed with MIPs. The study was performed unenhanced. COMPARISON: None. FINDINGS: Normal bilateral petrous carotid arteries. Normal right cavernous carotid artery with a normal supraclinoid bifurcation. Normal left cavernous carotid artery with a normal supraclinoid bifurcation. Normal right A1 segments of the anterior cerebral artery. Nonvisualized left A1 segments of the anterior cerebral artery which may be consistent with normal variant. Normal intact anterior communicating artery (ACOM). Normal bilateral A2 segments of the anterior cerebral arteries. Normal right M1 and M2 segments of the middle cerebral arteries, with a normal M1 bifurcation. Normal left M1 and M2 segments of the middle cerebral arteries, with a normal M1 bifurcation. Right posterior communicating artery not visualized which may be consistent with normal variant Normal left posterior communicating artery (PCOM). Normal bilateral vertebral arteries. Normal basilar artery with a normal basilar bifurcation. The visualized bilateral superior cerebellar (SCA) arteries are normal. Normal right posterior cerebral artery. Hypoplastic left posterior cerebral consistent with normal variant There is no demonstrated aneurysm of the [place] of [place]. There is no major vessel occlusion or hemodynamically significant stenosis. There is no demonstrated abnormality of the visualized brain. MRI/MRA Head ONLY without Contrast IMPRESSION: Normal MRA of the head Electronically Signed: Cameron Rosenbaum MD at 21:04 EDT ,
--- NOTE | 2021-11-01 19:14 | MRI_ITS ---
STUDY: MRI BRAIN WITHOUT CONTRAST REASON FOR EXAM: Male, 66 years old. speech change, dysarthria, ataxia, tremor - copy to Dr. Palmer TECHNIQUE: Standardized multiplanar fat and water weighted pulse sequences were obtained. COMPARISON: None. FINDINGS: Mild to moderate cortical atrophy. Normal white matter tracts of the supratentorial brain. Normal bilateral basal ganglia. Normal thalami. There is no extra-axial fluid accumulation. Normal flow voids within the major intracranial circulation suggesting patency by spin echo criteria. Empty sella deformity likely of no significance., Normal infundibular stalk, optic chiasm and hypothalamus. Normal tectal plate and pineal gland. Normal midbrain, lake and medulla. Normal cerebellum. Normal basal cisterns. Normal bilateral temporal bones. Normal bilateral internal auditory canals. No demonstrated orbital abnormality, within the constraints of a routine brain study. Normal visualized paranasal sinuses. Normal calvarium and skull base. Normal visualized soft tissue structures. Normal visualized upper cervical spine. MRI/Brain without Contrast IMPRESSION: Mild to moderate cortical atrophy without evidence for significant white matter disease or acute infarct. Empty sella deformity likely of no significance Electronically Signed: Cameron Rosenbaum MD at 21:02 EDT ,
== END 2021-11-01 23:59 | disposition home or self-care (01) ==
LOC: MRI 07:09
PROVIDERS: PCP Family Medicine; Referring Provider Family Medicine; Visit Provider Family Medicine
DX: R47.9 Unspecified speech disturbances (principal)
CPT/HCPCS: 70544; 70551

== ENCOUNTER 2021-11-17 17:43 | Outpatient (CLI) | payer MEDICARE, BC, SELFPAY ==
--- NOTE | 2021-11-17 18:05 | MRI_ITS ---
STUDY: MRI CERVICAL SPINE WITHOUT CONTRAST REASON FOR EXAM: Male, 66 years old. UPPER MOTOR NEURON DISEASE TECHNIQUE: Standardized fat and water weighted pulse sequences were obtained in the sagittal and axial planes. COMPARISON: No prior cervical spine imaging. FINDINGS: Normal foramen magnum and brainstem-cervical cord junction. Normal craniovertebral junction. Normal anterior atlantoaxial articulation. Normal odontoid process. Normal cervical lordosis. Normal vertebral bodies and posterior osseous elements. C2-3: Normal endplates. Normal disc height, signal and morphology. Normal central canal intervertebral neural foramina. Posterior ligamentum flavum buckling completely effaces CSF signal posterior to the cord at this level, worsened by lordosis at this level. C3-4: Normal endplates. Normal disc height, signal and morphology. Normal central canal. Right-sided facet arthropathy does appear to result in some mild neuroforaminal narrowing. Posterior ligamentum flavum buckling completely effaces CSF signal posterior to the cord at this level, worsened by lordosis at this level. C4-5: Significant disc desiccation and height loss and degenerative endplate changes. Mild posterior osteophytosis effaces CSF signal anterior cord, almost completely and there is some anterior cord flattening. CSF space posteriorly is maintained. This represents mild to moderate central canal stenosis. No neuroforaminal narrowing. C5-6: Significant disc desiccation and height loss and degenerative endplate changes. Posterior osteophytosis and mild uncovertebral joint arthropathy as well as small posterior disc herniation almost completely effaces CSF signal into the cord and conus maintained CSF signal posterior to the cord consistent with mild to moderate central canal stenosis. There is also uncovertebral joint arthropathy resulting in moderate bilateral neural foraminal narrowing with some impingement on the exiting left nerve root. C6-7: Advanced degenerative disc disease and posterior broad-based disc herniation partially effaces CSF signal anterior the cord resulting in mild central canal stenosis. Minimal uncovertebral joint arthropathy and no significant neural foraminal narrowing. No facet arthropathy. C7-T1: Disc desiccation and height loss with no significant disc bulge or herniation and no degenerative endplate changes. No central canal or neural foraminal narrowing. Normal cervical cord. No epidural fluid. Large thyroid mass primarily involving the left lobe appears to have some mass effect on the trachea. This is probably not significantly changed compared to prior imaging 05/28/2018. This was described on a report from a CTA chest on 12/06/2020. Normal T2 flow voids within the carotid and vertebral arteries. MRI/Spine Cervical (Routine) IMPRESSION: Advanced degenerative changes C4-5, C5-6 and C6-7, most notable at C5-6 where small posterior disc herniation as well as posterior osteophyte and uncovertebral joint arthropathy results in mild to moderate central canal narrowing and moderate bilateral neural foraminal narrowing. Less notable central canal and neural foraminal narrowing at C4-5 and C6-7. Asymmetric facet arthropathy at C3-4 on the right with mild right neural foraminal narrowing. C2-3 and C3-4 posterior ligamentum flavum buckling, associated with focal lordosis completely effaces CSF signal posterior to the cord. No cord compression. Heterogeneous thyroid mass appears chronic. Correlate with prior imaging. Electronically Signed: Luis Felipe Blood DO at 23:01 EDT ,
== END 2021-11-17 23:59 | disposition home or self-care (01) ==
LOC: MRI 17:43
PROVIDERS: PCP Family Medicine; Visit Provider Psychiatry & Neurology Neurology
DX: G12.29 Other motor neuron disease (principal)
CPT/HCPCS: 72141

== ENCOUNTER 2022-03-30 12:00 | Outpatient (RCR) | payer MEDICARE, BC, SELFPAY ==
--- NOTE | 2022-01-02 17:42 | HP.PTEVAL_ITS ---
Patient's Visit Information FRANCISCA VELASQUEZ is a 66 year old M referred to Physical Therapy by Dr. Jos Wong MD with a diagnosis of SPINOCEREBELLAR ATAXIA. Date of Evaluation: 01/02/22 Physical Therapist: Faby Urbina PT, Cert MDT - Visit Plan Frequency: 2-3x /Week Duration: 4-6 Weeks Plan: GAIT AND BALANCE TRAINING. POSTURE CORRECTION/STRENGTHENING, INSTRUCTION IN APPROPRIATE BODY MECHANICS AND ACTIVITY MODIFICATIONS. DLS STARTING WITH A NEUTRAL SPINE PROGRESSING ROM TOLERATED. MARLA LE ROM, STRETCHING AND STRENGTHENING. HEP INSTRUCTION. 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 PATIENT REPORTS HE IS IN BETTER HEALTH THAN HIS AND DOES MEAL PREP, MOWING, ETC. Present symptoms: MARLA LBP - MOSTLY LEFT LBP. PAIN IN LEGS AND KNEES WITH PROLONGED STANDING - ACHE AND TREMORS. WEAKNESS. FELL 2 WEEKS AGO AT [facility] TRYING TO WALK UP STEPS WITHOUT A HANDRAIL. HIT LEFT THIGH ON CONCRETE CORNER. ALSO HAD A FALL TAKING TRASH CANS UP TO HOUSE WHEN SNOWY. Present since: COUPLE YEARS AGO STARTED GETTING OFF BALANCE ALONG WITH SPEECH AND HAND PROBLEMS. CHRONIC LBP. Pain Scale: WORSE 3/10, LEAST 0/10. Currently: 0/10. Commenced as a result of: DX'D WITH UPPER MOTOR NEURON DISEASE AND SPINOCEREBELLAR ATAXIA. Worse: TRYING TO LIFT SOMETHING HEAVY, IF I FALL AND IT HURTS IN THE MORNING. Better: STRETCHING OUT AND SOMETIMES TYLONOL. Disturbed sleep: NO. Previous history/Previous t reatment: H/O PAINFUL BACK SPASMS. GI BLEED 3.5 YEARS AGO - SEVERE. A TIA A MONTH BEFORE THE GI BLEED. PULMONARY EMBOLISM [facility] NOVEMBER 2020 FOLLOWED BY ANOTHER GI BLEED. NO PROBLEMS WITH BALANCE PRIOR TO TIA. BALANCE GOT WORSE AFTER GI BLEED. NO PT FOR ABOUT 15 YEARS OR SO. NO BACK SURGERY. NO DIMITRY'S. Gait: PATIENT REPORTS HE TAKES SMALL STEPS. CAN'T RUN. SLOW. HARD TO TURN AROUND IN A SMALL SPACE - CAN NOT PIVOT. HAS TO HAVE A HANDRAIL AND CAN USUALLY GO STEP OVER STEP. RARELY USES AD BUT DOES SOMETIMES USE WALKING STICK. Bowel or Bladder Dysfunction: DIVERTICULOSIS. Unexplained weight loss: NONE RECENT. Imagin EMG'S AND 3 MRI'S - PATIENT REPORTS THE CAUSE IS QUESTIONABLE TO THE BEST OF HIS UNDERSTANDING. - Objective Sitting/Standing Posture: POOR. INCREASED TRUNK FLEXION. NO RELEVANT LATERAL SHIFT. Other Observations: THIS PATIENT AMBULATES INDEP'LY INTO PT WITHOUT ANY ASSISTIVE DEVICES, WITH DECREASED MARLA STRIDE LENGTH, INCREASED HIP HIKING, DECREASED CADANCE AND LURCH FROM SIDE TO SIDE. NO LOB. Sensory deficit: HYPERSENSATIVITY OR RIGHT THIGH WITH LIGHT TOUCH SENSATION TESTING COMPARED TO LEFT. ROM deficit: TIGHTNESS MARLA HS'S AND GASTROC SOLEUS COMPLEX'S. Motor deficit: MARLA LE'S GROSSLY 5/5 WITH MMT'ING EXCEPT HIPS 4/5. Dural Signs: NEGATIVE MARLA LE'S. Lumbar mvmt loss: flex - NIL. ext - DANY. R SG - MOD. L SG - MOD. Core strength: POOR TO FAIR. Palpation: NO ACUTE LUMBAR OR HIP TENDERNESS - Balance/Special Test Scores Oswestry Low Back Score: 7 Lower Extremity Functional Score: 43 TUG Test Time Seconds: 15.49 30 Second Chair Rise Test Seconds: 5 - Goals Goal 1:: DECREASE C/O LBP Goal Time Frame: 4-6 Weeks Goal 2:: PATIENT WILL COMPLETE TUG IN < 12 SECS TO DEMONSTRATE IMPROVED GAIT STABILITY Goal Time Frame: 4-6 Weeks Goal 3:: PATIENT WILL COMPLETE 8 STANDS IN 30 SECS TO DEMONSTRATE IMPROVED FUNCTIONAL STRENGTH Goal Time Frame: 4-6 Weeks Goal 4:: INDEP AND SAFE GAIT ON LEVEL SURFACES AND UP AND DOWN STEPS WITH LEAST ASSISTIVE DEVICE Goal Time Frame: 4-6 Weeks Goal 5:: PATIENT WILL BE INDEP WITH A HEP FOR CONTINUED IMPROVEMENT ONCE FORMAL PHYSICAL THERAPY CONCLUDES. Goal Time Frame: 4-6 Weeks - Anticipated Interventions Patient/Client Instruction: Educate patient on: Condition, Plan of Care, Risk Factors For the Purpose of:: To improve self management Therapeutic Exercise to Include: Strength training, Balance training, Body mechanics, Postural training, Flexibilty training, Gait and locomotor training, Neuromotor development, Dynamic Lumbar Stabilization For the Purpose of:: To decrease pain, To increase ROM, To improve muscle performance and motor function, To increase tolerance to activity/conditi on/position, To improve ability of physical actions for home/community/work/leisure, To improve gait and locomotor functions Thank you for the opportunity to evaluate your patient. For Medicare and Medicare HMO plans, please review the plan of care and approve it. It will need to be FAXED BACK to us at [phone] for Medicare purposes. For Medicare only, by signing this I certify the plan of care. Please let me know if there are questions or concerns regarding this plan of care. Physician Signature: Date:
--- NOTE | 2022-03-02 15:33 | HP.PTREVAL ---
Dr. 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 Please see the progress note below for an update on the physical therapy plan of care! Subjective: PATIENT REPORTS HIS STRIDE IS INCREASING. HE ALSO REPORTS HE CAN ALSO WALK FURTHER WITH LESS FEELING OF BEING OFF BALANCE. ALSO REPORTS BEING BETTER AT PICKING UP PACKAGES. AM LOW BACK PAIN AND STIFFNESS THAT DECREASES WITH STRETCHES AND MUSCLE RELAXER. GETS LBP WITH CERTAIN MVMTS BUT NOT BAD. Objective/Function: PATIENT WAS SEEN TODAY FOR RE-ASSESSMENT OF PROGRESS TOWARD THE SET PT GOALS AND THE NEED FOR FURTHER PHYSICAL THERAPY VS READINESS FOR DISCHARGE. UPON EXAM TODAY PATIENT DEMONSTRATES IMPROVED STS, TUG AND FUNCTIONAL SCREEN SCORES. HE STILL HAS DECREASED CONFIDENCE WITH LE FORWARD WEIGHT SHIFTING (R>L) AND MOTOR PLANNING (R>L) BUT THIS IS IMPROVING AND HIS STRIDE LENGTH IS IMPROVING. HE IS MAKING GOOD PROGRESS TOWARD ALL PT GOALS AND IS A GOOD CANDIDATE TO CONTINUE PT BASED ON PROGRESS MADE AND ROOM FOR FUTHER IMPROVEMENT. HE IS AGREEABLE. Plan Plan: CONT PT 2X'S A WK X 5-6 VISITS. *MAIN FOCUS AT THIS POINT SHOULD BE ON HELPING PATIENT TRANSITION TO SAFE HOME PROGRAM FOR CONTINUED IMPROVEMENT INDEP'LY BY NEXT RE-CHECK. INCLUDE MORE ACTIVITIES TO INCREASE PATIENTS CONFIDENCE WITH FORWARD WEIGHT SHIFT. TRY LUNGE FORWARD ONTO BOX ENCOURAGING TRUNK FLEXION. SEE NOTES IN THER EX 01/11 - AVOID SUPINE EX DUE TO DIZZINESS. FOCUS MORE ON BALANCE THAN STRENGTH.. GAIT AND BALANCE TRAINING. POSTURE CORRECTION/STRENGTHENING, INSTRUCTION IN APPROPRIATE BODY MECHANICS AND ACTIVITY MODIFICATIONS. DLS STARTING WITH A NEUTRAL SPINE PROGRESSING ROM TOLERATED. MARLA LE ROM, STRETCHING AND STRENGTHENING. HEP INSTRUCTION. Balance/Gait/Functional tests - Balance/Special Test Scores Oswestry Low Back Score: 6 Lower Extremity Functional Score: 52 TUG Test Time Seconds: 9.75 Tug Test: <10 sec.=free mobile 30 Second Chair Rise Test Seconds: 11 Goals Goal 1:: DECREASE C/O LBP Goal Time Frame: 4-6 Weeks Goal Progress: Progressing Goal 2:: PATIENT WILL COMPLETE TUG IN < 12 SECS TO DEMONSTRATE IMPROVED GAIT STABILITY Goal Time Frame: 4-6 Weeks Goal Progress: Goal Met Goal 3:: PATIENT WILL COMPLETE 8 STANDS IN 30 SECS TO DEMONSTRATE IMPROVED FUNCTIONAL STRENGTH Goal Time Frame: 4-6 Weeks Goal Progress: Goal Met Goal 4:: INDEP AND SAFE GAIT ON LEVEL SURFACES AND UP AND DOWN STEPS WITH LEAST ASSISTIVE DEVICE Goal Time Frame: 4-6 Weeks Goal Progress: Progressing Goal 5:: PATIENT WILL BE INDEP WITH A HEP FOR CONTINUED IMPROVEMENT ONCE FORMAL PHYSICAL THERAPY CONCLUDES. Goal Time Frame: 4-6 Weeks Goal Progress: Progressing Anticipated Interventions Patient/Client Instruction: Educate patient on: Condition, Plan of Care, Risk Factors For the Purpose of:: To improve self management Therapeutic Exercise to Include: Strength training, Balance training, Body mechanics, Postural training, Flexibilty training, Gait and locomotor training, Neuromotor development, Dynamic Lumbar Stabilization For the Purpose of:: To decrease pain, To increase ROM, To improve muscle performance and motor function, To increase tolerance to activity/condition/position, To improve ability of physical actions for home/community/work/leisure, To improve gait and locomotor functions Please do not hesitate to contact me at [phone] by phone or if you have questions or concerns regarding this new plan of care! Sincerely, Faby Urbina, PT, Cert MDT
--- NOTE | 2022-03-30 12:30 | HP.PTDCSUM ---
It has been my pleasure to treat FRANCISCA VELASQUEZ referred by Dr. Jos Wong MD, with the diagnosis of SPINOCEREBELLAR ATAXIA for a total of 23 visit(s). Discharge Date: Please see the following information for a summary of their discharge status. Subjective: PATIENT REPORTS HIS BACK IS GETTING BETTER SLOWLY. REPORTS 1/10 PAIN RIGHT NOW BUT BENDING AND LIFTING CAN CAUSE SPASMS (FOR A SECOND OR TWO 6/10) IF HE ISN'T CAREFUL. REPORTS HE CAN FOLLOW UP ABOUT HIS BACK WITH DR. TREVIN BARNARD HIS PCP NEEDED BUT HE WANTS TO GIVE IT MORE TIME. LIKES HIS CURRENT GYM PROGRAM AND PLANS TO CONTINUE INDEP'LY AT THIS TIME. HAS INSTABILITY PAD TO WORK ON BALANCE AT HOME. PATIENT REPORTS DECREASED BACK PAIN AFTER LAST PT SESSION. LBP Pain Intensity (Out of 10): 1 % Improvement: 65 Objective/Function: PATIENT WAS SEEN TODAY FOR RE-ASSESSMENT OF PROGRESS TOWARD THE SET PT GOALS AND THE NEED FOR FURTHER PHYSICAL THERAPY VS READINESS FOR DISCHARGE. PATIENT TUG TIME AND STS SCORE HAS BOTH IMPROVED AGAIN. HE IS INDEP WITH A GYM PROGRAM AND APPROPRIATE FOR DISCHARGE TO INDEP EX PROGRAM. PATIENT IS AGREEABLE. UPON EXAM TODAY: Dural Signs: NEGATIVE MARLA LE'S. Lumbar mvmt loss: flex - NIL. ext - MOD. R SG - MOD. L SG - MOD. PATIENT DENIES INCREASED PAIN WITH LUMBAR ROM TESTING ALL PLANES EXCEPT THE VERY END RANGE OF LUMBAR FLEXION. Goal 1:: DECREASE C/O LBP Goal Progress: Progressing Goal 2:: PATIENT WILL COMPLETE TUG IN < 12 SECS TO DEMONSTRATE IMPROVED GAIT STABILITY Goal Progress: Goal Met Goal 3:: PATIENT WILL COMPLETE 8 STANDS IN 30 SECS TO DEMONSTRATE IMPROVED FUNCTIONAL STRENGTH Goal Progress: Goal Met Goal 4:: INDEP AND SAFE GAIT ON LEVEL SURFACES AND UP AND DOWN STEPS WITH LEAST ASSISTIVE DEVICE Goal Progress: Goal Met Goal 5:: PATIENT WILL BE INDEP WITH A HEP FOR CONTINUED IMPROVEMENT ONCE FORMAL PHYSICAL THERAPY CONCLUDES. Goal Progress: Goal Met Plan: D/C If there are questions or concerns regarding this patient's physical therapy, please feel free to call me at [phone]. Thank you for the referral of this patient. Sincerely, Faby Urbina, PT, Cert MDT Balance/Gait/Functional tests - Balance/Special Test Scores Oswestry Low Back Score: 9 Lower Extremity Functional Score: 58 TUG Test Time Seconds: 9.40 Tug Test: <10 sec.=free mobile 30 Second Chair Rise Test Seconds: 13
== END 2022-03-30 13:18 | disposition home or self-care (01) ==
LOC: PT 12:00
PROVIDERS: PCP Family Medicine; Referring Provider Psychiatry & Neurology Neurology; Visit Provider Psychiatry & Neurology Neurology
DX: G11.8 Other hereditary ataxias (principal)
CPT/HCPCS: 97110; 97162; 97164; 97530

== ENCOUNTER 2022-07-18 12:51 | Outpatient (CLI) | payer MEDICARE, BC, SELFPAY ==
--- NOTE | 2022-07-18 13:50 | ST.MBS ---
Modified Barium Swallow - Patient Information Study Date: 07/18/22 Study Time: 12:48 Direct Billable Minutes: 105 Total Minutes procedure & reportin Diagnosis: Dysphagia, unspecified (R13.10) Referring Physician: Erwin Bae Reason for Referral: Objectively assess swallow function, risk for aspiration, and determine recommendations for least restrictive diet textures and compensatory strategies to improve safety of swallow. Medical History: The patient is a 67-year-old male with PMH significant for spinocerebellar ataxia who was referred for MBSS to assess concerns for dysphagia due to patient reporting difficulty swallowing of smaller pills. He is currently being followed by OP speech therapy to address dysarthria. Additional PMH from EMR includes TIA, GI bleed, lymph node enlargement, acute PNA (12/06/2020), and multiple thyroid nodules (SEE EMR for full PMH). Current Diet Ordered: Regular textures / Thin liquids Dentition: Upper Dentures, Lower Dentures Mental Status: WNL Respiratory Status: Oxygenating on Room Air - Penetration-Aspiration Scale Penetration-Aspiration Scale: OBJECTIVE ASSESSMENT OF SWALLOW FUNCTION (QUANTITATIVE ? PER TRIAL): PENETRATION / ASPIRATION SCALE (MANN): 1 = does not enter airway 2 = enters airway/above vocal folds/ejected 3 = enters airway/above vocal folds/not ejected 4 = enters airway/contacts vocal folds/ejected 5 = enters airway/contacts vocal folds/not ejected 6 = enters airway/below vocal folds/ejected 7 = enters airway/below vocal folds/not ejected despite effort 8 = enters airway/below vocal folds/no effort VIDEOFLOROSCOPIC SCALE SCORE (MANN): Grade I = aspiration of material that has penetrated into the laryngeal vestibule, intact cough reflex Grade II = aspiration < 10 % of the bolus, intact cough reflex Grade III = aspiration of < 10 % of the bolus, reduced cough reflex or aspiration of > 10 % of the bolus, intact cough reflex Grade IV = aspiration of > 10 % of the bolus, reduced cough reflex - Penetration-Aspiration Scale Score Thin Liquid via teaspoon Result: 1= does not enter airway Thin Liquid via teaspoon Trial 2 Result: 1= does not enter airway Thin Liquid via sequential sips from cup Result: 7= enters airways/below vocal folds/not ejected despite effort Thin Liquid via large single sip from cup Result: 8= enters airway/below vocal folds/no effort - CHEMICAL MILLING PROCESSOR cued the patient for small sip but he took a large sip. Thin Liquid via small single sip from cup Result: 3= enters airways/above vocal folds/not ejected [place] Thick Liquid via small single sip from cup Result: 1= does not enter airway Honey Thick Liquid via small single sip from cup Result: 1= does not enter airway Pudding via teaspoon with esophageal screen Result: 1= does not enter airway 1/2 Cookie Result: 1= does not enter airway Thin Liquid via single sip from straw Result: 7= enters airways/below vocal folds/not ejected despite effort Barium Tablet with barium pudding Result: 1= does not enter airway Thin Liquid via small single sip from cup Trial 2 Result: 1= does not enter airway Thin Liquid via small single sip from cup Trial 3 Result: 1= does not enter airway - Oral Phase Labial Seal: No Labial Escape Tongue Control During Bolus Hold: Posterior escape of greater than half of bolus Bolus Preparation/Mastication: Timely and efficient chewing and mashing Bolus Transport/Lingual Motion: Slowed tongue motion Oral Residue: Residue collection on oral structures - Pharyngeal Phase Initiation of Pharyngeal Swallow: Bolus head in pyriforms Soft Palate Elevation: Trace column of contrast/air between soft palate and pharyngeal wall Laryngeal Elevation: Partial superior movement thyroid cart/partial apprx aryt-epig petiole Anterior Hyoid Excursion: Partial anterior movement Epiglottic Movement: Complete inversion Laryngeal Vestibule Closure at Height of Swallow: Incomplete; narrow column of air/contrast in laryngeal vestibule Pharyngeal Stripping Wave: Present - diminished Pharyngoesophageal Segment Opening: Complete distension and complete duration; no obstruction of flow Tongue Base Retraction: Narrow column of contrast between tongue base & post. pharyngeal wall Pharyngeal Residue: Trace residue within or on pharyngeal structures - Esophageal Phase Esophageal Clearance: Complete clearance - Diagnosis/Impression Diagnosis: Mild-moderate oropharyngeal phase dysphagia (R13.12) Impression: The oral phase is primarily marked by... -Decreased bolus control with >1/2 of the bolus spilling posteriorly to the pyriforms prior to swallow onset observed with thin liquids via straw and sequential sips of thin liquids especially. Thin liquids via straw spilled to the vocal folds prior to swallow onset resulting in aspiration during the swallow. -Slowed tongue motion for A-P transport -Mild oral residue after the swallow, which cleared with independent initiation of multiple swallows. -Timely mastication of cookie with piecemeal deglutition observed. The pharyngeal phase is primarily marked by... -Delayed swallow onset, especially observed with thin liquids via sequential cup and single straw. -Mildly decreased airway closure during the swallow due to mildly decreased anterior hyoid excursion and laryngeal elevation. -Mildly decreased tongue base retraction and pharyngeal stripping wave with trace pharyngeal residues after the swallow. -Aspiration of thin liquids sequential cup and tsp. SILENT aspiration of large sip of thin liquids via cup. Trace laryngeal penetration of one trial of thin liquid via small cup sip, which did not reliably eject from the laryngeal vestibule after the swallow - trace residue in the laryngeal vestibule after the swallow. Use of SMALL, SINGLE SIPS was most effective in decreasing laryngeal penetration and aspiration risk during the swallow. - Recommendations Diet: Regular Textures, Thin Liquids Comment: Pills whole in puree (applesauce/yogurt/pudding). Oral care after meals. Compensatory Strategies: Small Bites, Small Sips - CHEMICAL MILLING PROCESSOR cued pt think small sips like the tsp sips, as he initially had difficulty demonstrating a small sip during trials, Slow Rate, Sitting upright, Remain sitting upright for 30 minutes after PO intake Recommend Repeat Modified Barium Swallow: Yes Comment: Recommend repeat MBSS every 1-2 years to monitor risk for worsening dysphagia given progressive nature of spinocerebellar ataxia. If worsening s/s of aspiration or worsening pulmonary status, will recommend repeat MBSS sooner. Need for Skilled Speech Therapy Services: Yes Comment: Will recommend the patient for outpatient dysphagia therapy to address mild-moderate deficits in oropharyngeal swallow function. Will recommend the patient for oropharyngeal strengthening to improve lingual strength/coordination, laryngeal elevation, hyoid excursion, and swallow onset (lingual coordination and resistance exercises, Samina, CTAR, effortful breath hold and swallow). The patient would benefit from thorough education regarding diet recommendations and recommended compensatory strategies to decrease his risk for aspiration. If concerns for poor hydration provided pt's need for small, single sips of thin liquids to decrease his risk for aspiration, would strongly consider implementing a Perez Free Water Protocol (FFWP) to encourage hydration and promote increased opportunities for swallowing throughout the day. If pt has difficulty controlling sip size, would consider use of 10cc provale cup. Education Completed: 1. Described result of evaluation., 7. Pt requires further education on strategies & risks. - Status Active ST Patient: Active - Contact Information [facility] Speech Therapy:: Eliane Greenwood M.A. [facility]-CHEMICAL MILLING PROCESSOR Speech-Language Pathologist [facility] [address] [place] [address] [email or web address] [phone] 07/18/22 14:08
== END 2022-07-18 23:59 | disposition home or self-care (01) ==
PROVIDERS: PCP Family Medicine; Referring Provider Family Medicine; Visit Provider Family Medicine
DX: F80.0 Phonological disorder (principal)
CPT/HCPCS: 74230; 92611

== ENCOUNTER 2022-09-20 14:00 | Outpatient (RCR) | payer MEDICARE, BC, SELFPAY ==
--- NOTE | 2022-06-27 16:44 | HP.SP.EV_ITS ---
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 Francisca has participated in PT at this facility from December 2021 to March 2022. Pt reporting difficulty with /st/ blends and /dj/. Pt reporting little difference with his speech intelligibility when he is fatigued. Pt confirms difficulty with smaller pills compared to large ones. Following education, Pt willing to participate in MBSS to determine baseline swallowing status. Medications related to this diagnosis: Carbidopa-Levodopa, Atorvastatin, Tamsulosin, Warfarin, Metoprolol, Irbesartan Smoking Status: Never smoker Hx Smoking: Yes Hx Tobacco Use: No - Pain Is pain an issue with your current prescribed condition?: No Patient Allergies - Allergies Allergies Penicillins Allergy (Verified 12/06/20 09:09) Anaphylaxis Subjective Dysphagia - Comments Modified Barium Swallow Study -: Direct education provided re: purpose of determining a baseline swallowing function with a MBSS to have a comparison for future studies as his ataxia progresses. Pt willing to participate in study. Pt reporting no current difficulties except with smaller pills getting stuck in his oral cavity. He reports benefiting from a lubricant such as water, applesauce, pudding. Objective Dysphagia - Results Swallowing Diagnosis: Dysphagia Unspecified (R13.10) Objective Oral Motor - Oral Status Dentition: Upper Dentures, Lower Dentures - Lingual Impairment: Mild Protrusion: Mild Retraction: Mild Lateralization: Mild - Oral Motor Comments Comments: Pt produced /puhpuhpuh/ with appropriate rate and accuracy. Pt produced /tuhtuhtuh/ and /kuhkuhkuh/ w/slow rate and increased processing time to produce. Pt completed [facility] w/ slow rate, halting lingual coordination, and intermittent poor breath support. - Respiratory Status Respiratory Status: Room Air Objective Dysarthira/Motor - Speech Intelligibility Phonemes: Mild Single Words: Mild Phrases: Mild Sentences: Mild Paragraphs: Moderate Conversation: Moderate - Volume Loudness: Variable loudness - Sounds Sounds in Error: /st/ and /sw/ blends, /sh/, /dj/, and /ch/; Pt also observed to reduce the middle syllable in multi-syllabic words with 3 or more syllables. - Observation Observation of Apraxia of Speech: No Oral Groping for Placement: No Inconsistent Errors: No - Awareness/Strategy Use Uses strategies intermittently to improve intelligibility or listener's understanding of message: Yes Plan - Plan Plan: Will recommend Pt for weekly outpatient speech therapy intervention address severe dysarthria. Pt would benefit from oral motor exercises, verbal and visual modeling, verbal/visual and tactile cuing, repeated practice, and immediate feedback to improve articulation and coordination. Without skilled intervention, Pt is at risk for difficulty communicating basic, medical, emergen t, social wants & needs, and interacting with family/friends at home, during social interactions, and at work. - Recommendations Treatment Warranted: Yes Treatment Warranted: Speech Sound Production, Dysphagia - Progress Prognosis: Good - Frequency Frequency: 2x /Week Duration: 4 Weeks - Goals that are Established Determination:: Goals will be added/modified as deemed necessary and appropria te. Therapy will be discontinued when results of re-evaluation indicate therapy is no longer needed or lack of progress has been documented. - Goal #1-5 Goal #1: Francisca will demonstrate and utilize speech intelligibility techniques (increased loudness, reduced rate of speech, exaggerated articulation, increased jaw ROM) 90% of the time during conversational speech independently across 3 consecutive sessions to facilitate increased expressive communication abilities in the home and social environments. Goal #2: Francisca will produce single and multisyllable words (ST/SW blends, CH, DJ) with the use of strategies demonstrating errors on less than 10% of words produced given minimal verbal cues across 3 consecutive sessions to improve speech clarity. Goal #3: Francisca will establish volitional control of respiration evidenced by utilization of diaphragmatic breathing during structured tasks within 4 weeks with 100% accuracy independently. Goal #4: Francisca will participate in Modified Barium Swallow (MBS) study to objectively assess Francisca's oropharyngeal swallow function to determine the least restrictive means of nutrition and progress from participating in pharyngeal strengthening exercises. Education - Patient has Indicated that the Following Identified Educational Needs: None The Patient has indicated that they have no educational or learning abilities that may effect their care.: Yes - Patient Instruction Patient Education: Diagnosis, Treatment Plan, Goals Person Taught: Patient Teaching Method: Discussion, Demonstration, Handout Response to teaching: Return demonstration, Verbalize understanding
--- NOTE | 2022-08-22 16:10 | HP.SP.REEV ---
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 Francisca has participated in PT at this facility from December 2021 to March 2022. Pt reporting difficulty with /st/ blends and /dj/. Pt reporting little difference with his speech intelligibility when he is fatigued. Pt confirms difficulty with smaller pills compared to large ones. Following education, Pt willing to participate in MBSS to determine baseline swallowing status. Medications related to this diagnosis: Carbidopa-Levodopa, Atorvastatin, Tamsulosin, Warfarin, Metoprolol, Irbesartan Smoking Status: Never smoker Hx Smoking: Yes Hx Tobacco Use: No - Pain Is pain an issue with your current prescribed condition?: No Patient Allergies - Allergies Allergies Penicillins Allergy (Verified 12/06/20 09:09) Anaphylaxis Previous/Current Goals - Goals 1-5 Previous Goal #1: Francisca will demonstrate and utilize speech intelligibility techniques (increased loudness, reduced rate of speech, exaggerated articulation, increased jaw ROM) 90% of the time during conversational speech independently across 3 consecutive sessions to facilitate increased expressive communication abilities in the home and social environments. Goal 1 Status: GOAL MET: Pt uses speech intelligibility strategies independently during structured and unstructured tasks including increasing loudness, exaggerated articulation, and reduced rate of speech. Previous Goal #2: Francisca will produce single and multisyllable words (ST/SW blends, CH, DJ) with the use of strategies demonstrating errors on less than 10% of words produced given minimal verbal cues across 3 consecutive sessions to improve speech clarity. Goal 2 Status: GOAL MET: SBlend in the word medial position: less than 10% of errors with slow rate of speech. Less than 10% of errors with medium rate of speech. DJ in word initial position @ word level: less than 10% of errors. DJ in word initial position @ phrase level: less than 10% of errors. DJ in word initial position @ sentence level: errors on 20% of words. DJ in word final position @ word level: errors on 75% of words via devoicing to CH Previous Goal #3: Francisca will establish volitional control of respiration evidenced by utilization of diaphragmatic breathing during structured tasks within 4 weeks with 100% accuracy independently. Goal 3 Status: GOAL MET: Direct education provided re: diaphragmatic breathing with handout and demonstration provided. Pt initially implementing clavicular breathing and improving to diaphragmatic breathing with min verbal cues. Previous Goal #4: Francisca will participate in Modified Barium Swallow (MBS) study to objectively assess Francisca's oropharyngeal swallow function to determine the least restrictive means of nutrition and progress from participating in pharyngeal strengthening exercises. Goal 4 Status: GOAL MET: MBSS completed on 07/18/22. MBSS completed yesterday with the following recommendations below. Pt does aspirate thin liquids with large and sequential sips however benefits greatly from smaller sips (tsp size) to prevent premature spillage to piriform sinuses. Reviewed study with Pt who showed understanding of recommendations. Diet: Regular Textures, Thin Liquids, Pills whole in puree (applesauce/yogurt/pudding). Oral care after meals. Compensatory Strategies: Small Bites, Small Sips - EQUIPMENT DRIVER cued pt think small sips like the tsp sips, as he initially had difficulty demonstrating a small sip during trials, Slow Rate, Sitting upright, Remain sitting upright for 30 minutes after PO intake. Recommend Repeat Modified Barium Swallow: Yes. Comment: Recommend repeat MBSS every 1-2 years to monitor risk for worsening dysphagia given progressive nature of spinocerebellar ataxia. If worsening s/s of aspiration or worsening pulmonary status, will recommend repeat MBSS sooner. Need for Skilled Speech Therapy Services: Yes. Comment: Will recommend the patient for outpatient dysphagia therapy to address mild-moderate deficits in oropharyngeal swallow function. Will recommend the patient for oropharyngeal strengthening to improve lingual strength/coordination, laryngeal elevation, hyoid excursion, and swallow onset (lingual coordination and resistance exercises, Samina, CTAR, effortful breath hold and swallow). The patient would benefit from thorough education regarding diet recommendations and recommended compensatory strategies to decrease his risk for aspiration. If concerns for poor hydration provided pt's need for small, single sips of thin liquids to decrease his risk for aspiration, would strongly consider implementing a Perez Free Water Protocol (FFWP) to encourage hydration and promote increased opportunities for swallowing throughout the day. If pt has difficulty controlling sip size, would consider use of 10cc provale cup. Pt enjoys drinking: Brittni, Green Tea, Kambucha. Direct education provided re: adhering the safe swallowing recommendations. Print out of a Provale 10cc cup provided should Pt wish to pursue a portion controlled cup. Direct education provided re: oral motor and lingual strengthening exercises to improve lingual ROM. Pt completing trials of all exercises independently - handout provided. Subjective Dysphagia - Comments Modified Barium Swallow Study -: SEE PATIENT'S CHART FOR MBSS RESULTS Objective Dysphagia - Results Swallowing Diagnosis: Dysphagia Unspecified (R13.10) Objective Oral Motor - Oral Status Dentition: Upper Dentures, Lower Dentures - Lingual Impairment: Mild Protrusion: Mild Retraction: Mild Lateralization: Mild - Oral Motor Comments Comments: Pt improving DDK productions of /puhpuhpuh/ and /tuhtuhtuh/ and /kuhkuhkuh/ with appropriate rate and mildly reduced accuracy when producing with a slower, more controlled rate of speech. - Respiratory Status Respiratory Status: Room Air Objective Dysarthira/Motor - Speech Intelligibility Phonemes: Mild Single Words: Mild Phrases: Mild Sentences: Mild Paragraphs: Moderate Conversation: Moderate - Volume Loudness: Variable loudness - Sounds Sounds in Error: /st/ and /sw/ blends, /sh/, /dj/, and /ch/; Pt also observed to reduce the middle syllable in multi-syllabic words with 3 or more syllables. - Observation Observation of Apraxia of Speech: No Oral Groping for Placement: No Inconsistent Errors: No - Awareness/Strategy Use Uses strategies intermittently to improve intelligibility or listener's understanding of message: Yes Plan - Plan Plan: Will recommend Pt for weekly outpatient speech therapy intervention to monitor dysarthria and dysphagia. Pt would benefit from oral motor exercises, verbal and visual modeling, verbal/visual and tactile cuing, repeated practice, immediate feedback to improve articulation and coordination, and implementation of oropharyngeal exercises. Without skilled intervention, Pt is at risk for difficulty communicating basic, medical, emergent, social wants & needs, and interacting with family/friends at home, during social interactions, and at work. - Recommendations MBS: Yes Treatment Warranted: Yes Treatment Warranted: Speech Sound Production, Dysphagia - Progress Prognosis: Good - Frequency Frequency: Monthly Duration: 3 Months - Goals that are Established Determination:: Goals will be added/modified as deemed necessary and appropriate. Therapy will be discontinued when results of re-evaluation indicate therapy is no longer needed or lack of progress has been documented. - Goal #1-5 Goal #1: Pt will utilize swallowing strategies (multiple swallows) and tolerate least restrictive diet with no overt s/s of aspiration/penetration to aid in safe consumption of solid/liquids independently. Goal #2: Pt will complete oropharyngeal exercises for 10 reps, 3x/day independently to improve tongue base retraction, PES opening/distention, and hyolaryngeal elevation and excursion. Goal #3: Pt will complete oral motor exercises to aid in bolus manipulation, oral strengthening, and ROM with no cues. Goal #4: . Education - Patient has Indicated that the Following Identified Educational Needs: None The Patient has indicated that they have no educational or learning abilities that may effect their care.: Yes - Patient Instruction Patient Education: Diagnosis, Treatment Plan, Goals Person Taught: Patient Teaching Method: Discussion, Demonstration, Handout Response to teaching: Return demonstration, Verbalize understanding
--- NOTE | 2022-09-27 12:08 | HP.SP.DC ---
ST Discharge Summary - Discharged: Discharge: FRANCISCA VELASQUEZ is a 67 year old male who was seen for initial speech therapy ataxic dysarthria and dysphagia evaluation at [facility] on 06/27/23 secondary to suspected dx of spinocerebellar ataxia. Pt attended initial evaluation and 11 follow up appointments to discuss speech clarity strategies, identify which sounds require additional emphasis in his speech, diaphragmatic breathing, and oropharyngeal and oral motor exercises to complete as a home program. Pt also participated in MBSS which revealed silent aspiration with straws, large cup sips, and sequential cup sips with thin liquids. It was recommended Pt continue with regular solids and thin liquids, SMALL drinks/bites, Provale cup with sip size is difficult to manage, and repeat MBSS every 1-2 years to monitor swallowing function. Pt is being d/c from OP speech therapy on this date, 09/27/22, d/t meeting therapy goals and participating in home program as able. Thank you for allowing me to participate the care of your Pt. Will reevaluate at Pt?s request following script from physician.
== END 2022-09-20 19:00 | disposition home or self-care (01) ==
LOC: SP 14:00
PROVIDERS: PCP Family Medicine; Referring Provider Family Medicine; Visit Provider Family Medicine
DX: G11.19 Other early-onset cerebellar ataxia (principal); R47.89 Other speech disturbances
CPT/HCPCS: 92507; 92522

== ENCOUNTER → 2023-10-05 | Outpatient (CLI) | payer MEDICARE, BC, SELFPAY ==
[2023-10-05 14:45] LABS: Absolute Lymphocyte Count 1.74 X10^3/uL (0.83-4.51); Absolute Neutrophil Count 4.1 X10^3/uL (2.0-7.7); Basophil# 0.03 X10^3/uL; Basophil% 0.5 % (0-1); Eosinophil# 0.19 X10^3/uL; Eosinophils% 2.9 % (0-5); Hematocrit 42.9 % (40-54); Hemoglobin 13.8 g/dL (13.0-16.5); Lymphocyte # 1.74 X10^3/ul (0.83-4.51); Lymphocyte % 26.2 % (19-41); Mean Corp Hgb Conc 32.2 g/dL (32-36); Mean Corpuscular Hgb 29.2 pg (27.0-32.0); Mean Corpuscular Volume 90.7 fL (80-94); Mean Platelet Vol. 8.5 fl (6.2-12.0); Monocyte# 0.56 X10^3/uL; Monocyte% 8.4 % (0-10); NRBC Flagged by Analyzer 0 % (0-5); Neutrophil % 61.7 % (47-70); Platelet Count 274 K/mm3 (150-450); RBC Distribution Width CV 13.3 % (11.6-14.6); RBC Distribution Width SD 44.5 fl (35.1-43.9); Red Blood Count 4.73 M/mm3 (4.6-6.2); White Blood Count 6.6 K/mm3 (4.4-11.0)
[2023-10-05 15:01] LABS: Microalbumin,Random Urine 24.2 mg/L (NO RANGE EST.); Microalbumin:Creatinine Ratio 13.2 mg/g CRE (<30 mg/g CRE)
[2023-10-05 15:22] LABS: ALB/GLOB Ratio 0.8 RATIO (0.9-2.4); AST(SGOT) 26 U/L (15-37); Alanine Aminotransfer ALT/SGPT 39 U/L (16-61); Alkaline Phosphatase 91 U/L (45-117); Anion Gap 4 (5-15); BUN 18 mg/dL (7-18); BUN/Creat Ratio 18.4 RATIO (10-20); Chloride 111 mmol/L (98-107); Cholesterol 120 mg/dL (200); Creatinine, Serum 0.98 mg/dL (0.70-1.30); EST Glomerular Filtration Rate 81 mL/min (>60); Est Glom Filt Rate - Afr Amer 98 mL/min (>60); Globulin 3.9 g/dL (2.2-4.2); Glucose 104 mg/dL (74-106); High Density Lipoprotein 35 mg/dL; PSA,Total - Annual Screen 6.81 ng/mL (0.00-4.00); Potassium 3.9 mmol/L (3.5-5.1); Protein, Total 6.9 g/dL (6.4-8.2); Sodium Level 141 mmol/L (136-145); Thyroid Stim Hormone (TSH) 0.01 uIU/mL (0.358-3.74); Triglycerides 91 mg/dL; Very Low Density Lipoprotein 18 mg/dL (5-40)
[2023-10-14 10:07] LABS: Testosterone, % Free 2.53 % (1.50-4.20); Testosterone, Free 17.71 ng/dL (5.00-21.00); Testosterone, Total 700 ng/dL (264-916)
== END | disposition home or self-care (01) ==
PROVIDERS: PCP Family Medicine; Referring Provider Family Medicine; Visit Provider Family Medicine
DX: E04.2 Nontoxic multinodular goiter (principal); M62.84 Sarcopenia; Z12.5 Encounter for screening for malignant neoplasm of prostate; I10 Essential (primary) hypertension
CPT/HCPCS: 36415; 80053; 80061; 82043; 82570; 84153; 84402; 84403; 84443; 85025; G0103

== ENCOUNTER → 2023-10-19 | Outpatient (CLI) | payer MEDICARE, BC, SELFPAY ==
[2023-10-19 18:17] LABS: Free T3 3.4 pg/mL (2.18-3.98); T4 Free Direct 1.32 ng/dL (0.76-1.46); Thyroid Stim Hormone (TSH) 0.01 uIU/mL (0.358-3.74)
[2023-10-21 08:08] LABS: Thyroid Peroxidase AB 11 IU/mL (0-34)
[2023-10-28 13:07] LABS: Testosterone, % Free 1.78 % (1.50-4.20); Testosterone, Free 12.57 ng/dL (5.00-21.00); Testosterone, Total 706 ng/dL (264-916)
== END | disposition home or self-care (01) ==
PROVIDERS: PCP Family Medicine; Referring Provider Family Medicine; Visit Provider Family Medicine
DX: M62.84 Sarcopenia (principal); E04.2 Nontoxic multinodular goiter
CPT/HCPCS: 36415; 84402; 84403; 84439; 84443; 84481; 86376

== ENCOUNTER → 2023-11-02 | Outpatient (CLI) | payer MEDICARE, BC, SELFPAY ==
--- NOTE | 2023-11-02 15:06 | US_ITS ---
EXAM: US SOFT TISSUES HEAD AND NECK, THYROID CLINICAL INDICATION: NODULES TECHNIQUE: Suazo scale and color doppler imaging was performed of the thyroid gland. COMPARISON: US Thyroid dated 06/18/2020 FINDINGS: LEFT THYROID LOBE: Left thyroid lobe measures 10.6 x 5.0 x 4.1 cm. Multiple complex cystic and solid nodules seen unchanged from prior study. Homogeneous echotexture with normal vascularity. RIGHT THYROID LOBE: Right thyroid lobe measures 6.0 x 3.3 x 2.8 cm. Multinodular echotexture noted without significant interval change. Dominant 17 mm nodule noted. This nodule is mixed cystic and solid, hyperechoic or isoechoic, [id number], smoothly marginated and contains no echogenic foci. TI-RADS points: 2. TI-RADS category: TR2. This nodule is not suspicious and no FNA or follow-up is necessary. ISTHMUS: Isthmus measures 6 mm in AP dimension. 4 mm colloid cyst. US/Thyroid IMPRESSION: No significant change in the multinodular goiter. Electronically Signed: Sanjeev Pace MD at 14:39 EDT ,
== END | disposition home or self-care (01) ==
LOC: US 15:04
PROVIDERS: PCP Family Medicine; Referring Provider Family Medicine; Visit Provider Family Medicine
DX: E04.2 Nontoxic multinodular goiter (principal)
CPT/HCPCS: 76536

== ENCOUNTER → 2023-11-15 | Outpatient (CLI) | payer MEDICARE, BC, SELFPAY ==
[2023-11-15 18:10] LABS: ALB/GLOB Ratio 0.9 RATIO (0.9-2.4); AST(SGOT) 28 U/L (15-37); Alanine Aminotransfer ALT/SGPT 34 U/L (16-61); Albumin, Serum 3.4 g/dL (3.2-5.0); Alkaline Phosphatase 84 U/L (45-117); Anion Gap 6 (5-15); BUN 14 mg/dL (7-18); BUN/Creat Ratio 13.7 RATIO (10-20); CRP < 2.90 mg/L (0.0-3.0); Calcium,Total 8.8 mg/dL (8.5-10.1); Chloride 110 mmol/L (98-107); Creatinine, Serum 1.02 mg/dL (0.70-1.30); EST Glomerular Filtration Rate 77 mL/min (>60); Est Glom Filt Rate - Afr Amer 94 mL/min (>60); Free T3 3.6 pg/mL (2.18-3.98); Globulin 3.9 g/dL (2.2-4.2); Glucose 102 mg/dL (74-106); Potassium 3.8 mmol/L (3.5-5.1); Prolactin 6.6 ng/mL; Protein, Total 7.3 g/dL (6.4-8.2); Sodium Level 141 mmol/L (136-145); T4 Free Direct 1.37 ng/dL (0.76-1.46); Thyroid Stim Hormone (TSH) < 0.01 uIU/mL (0.358-3.74)
[2023-11-15 18:12] LABS: PTHIN 88.4 pg/mL (18.4-80.1)
== END | disposition home or self-care (01) ==
LOC: MFPLAB 15:32
PROVIDERS: PCP Family Medicine; Visit Provider Family Medicine
DX: R79.89 Other specified abnormal findings of blood chemistry (principal); E04.2 Nontoxic multinodular goiter
CPT/HCPCS: 36415; 80053; 82024; 83970; 84146; 84439; 84443; 84481; 86140

== ENCOUNTER → 2024-02-01 | Outpatient (CLI) | payer MEDICARE, BC, SELFPAY ==
[2024-02-01 14:24] LABS: Calcium,Total 9.3 mg/dL (8.5-10.1)
[2024-02-01 14:29] LABS: PTHIN 67.4 pg/mL (18.4-80.1)
[2024-02-05 14:11] LABS: Vitamin D 1,25-Dihydroxy 52.7 pg/mL (24.8-81.5)
[2024-02-05 18:09] LABS: Thyroid Stim Immunoglob <0.10 IU/L (0.00-0.55)
== END | disposition home or self-care (01) ==
LOC: LAB 13:50
PROVIDERS: PCP Family Medicine; Referring Provider Surgery; Visit Provider Surgery
DX: E04.1 Nontoxic single thyroid nodule (principal); R59.9 Enlarged lymph nodes, unspecified
CPT/HCPCS: 36415; 82310; 82652; 83970; 84445

== ENCOUNTER → 2024-04-24 | Outpatient (CLI) | payer MEDICARE, BC, SELFPAY ==
[2024-04-24 18:12] LABS: ALB/GLOB Ratio 0.8 RATIO (0.9-2.4); AST(SGOT) 34 U/L (15-37); Alanine Aminotransfer ALT/SGPT 40 U/L (16-61); Albumin, Serum 3.3 g/dL (3.2-5.0); Alkaline Phosphatase 80 U/L (45-117); Anion Gap 3 (5-15); BUN 15 mg/dL (7-18); BUN/Creat Ratio 14.4 RATIO (10-20); Chloride 107 mmol/L (98-107); Creatinine, Serum 1.04 mg/dL (0.70-1.30); EST Glomerular Filtration Rate 76 mL/min (>60); Est Glom Filt Rate - Afr Amer 91 mL/min (>60); Free T3 2.9 pg/mL (2.18-3.98); Globulin 4.1 g/dL (2.2-4.2); Glucose 103 mg/dL (74-106); Potassium 4.1 mmol/L (3.5-5.1); Protein, Total 7.4 g/dL (6.4-8.2); Sodium Level 138 mmol/L (136-145); T4 Free Direct 1.08 ng/dL (0.76-1.46); Thyroid Stim Hormone (TSH) 0.169 uIU/mL (0.358-3.740)
[2024-04-24 19:00] LABS: PSA,Total- Diagnostic 4.62 ng/mL (0.0-4.0)
[2024-04-25 15:06] LABS: Vitamin D,25 Hydroxy 57.7 ng/mL
== END | disposition home or self-care (01) ==
LOC: MFPLAB 15:04
PROVIDERS: Internal Medicine Endocrinology, Diabetes & Metabolism; PCP Family Medicine; Visit Provider Family Medicine
DX: E55.9 Vitamin D deficiency, unspecified (principal); E05.20 Thyrotoxicosis with toxic multinodular goiter without thyrotoxic crisis or storm; R97.20 Elevated prostate specific antigen [PSA]
CPT/HCPCS: 36415; 80053; 82306; 84153; 84439; 84443; 84481

== ENCOUNTER → 2024-07-16 | Outpatient (CLI) | payer MEDICARE, BC, SELFPAY ==
[2024-07-16 16:28] LABS: T4 Free Direct 0.99 ng/dL (0.76-1.46)
== END | disposition home or self-care (01) ==
LOC: LAB 15:26
PROVIDERS: PCP Family Medicine; Referring Provider Internal Medicine Endocrinology, Diabetes & Metabolism; Visit Provider Internal Medicine Endocrinology, Diabetes & Metabolism
DX: E05.20 Thyrotoxicosis with toxic multinodular goiter without thyrotoxic crisis or storm (principal)
CPT/HCPCS: 36415; 84439; 84443; 84481

== ENCOUNTER → 2024-12-25 | Outpatient (CLI) | payer MEDICARE, BC, SELFPAY ==
[2024-12-25 17:51] LABS: Absolute Lymphocyte Count 1.16 X10^3/uL (0.83-4.51); Absolute Neutrophil Count 5.4 X10^3/uL (2.0-7.7); Basophil# 0.05 X10^3/uL; Basophil% 0.7 % (0-1); Eosinophil# 0.14 X10^3/uL; Eosinophils% 1.9 % (0-5); Lymphocyte # 1.16 X10^3/ul (0.83-4.51); Lymphocyte % 15.7 % (19-41); Mean Corp Hgb Conc 31.8 g/dL (32-36); Mean Corpuscular Hgb 29.8 pg (27.0-32.0); Mean Corpuscular Volume 93.6 fL (80-94); Mean Platelet Vol. 9.4 fl (6.2-12.0); Monocyte# 0.66 X10^3/uL; Monocyte% 8.9 % (0-10); NRBC Flagged by Analyzer 0 % (0-5); Neutrophil # 5.36 X10^3/uL (2.7-7.7); Neutrophil % 72.5 % (47-70); Platelet Count 257 K/mm3 (150-450); RBC Distribution Width CV 14.1 % (11.6-14.6); RBC Distribution Width SD 49.1 fl (35.1-43.9); White Blood Count 7.4 K/mm3 (4.4-11.0)
[2024-12-25 18:09] LABS: ALB/GLOB Ratio 1.3 RATIO (0.9-2.4); AST(SGOT) 28 U/L (<=37); Alanine Aminotransfer ALT/SGPT 20 U/L (<=46); Albumin, Serum 4.1 g/dL (3.4-4.8); Alkaline Phosphatase 104 U/L (40-129); Anion Gap 11 (5-15); BUN 15 mg/dL (4-19); BUN/Creat Ratio 12.8 RATIO (10-20); CRP 5.77 mg/L (0.0-3.0); Calcium,Total 9.4 mg/dL (7.6-11.0); Carbon Dioxide 23.1 mmol/L (21.0-32.0); Chloride 107 mmol/L (98-108); Creatinine, Serum 1.16 mg/dL (0.70-1.20); EST Glomerular Filtration Rate 69 (>60); Globulin 3.2 g/dL (2.2-4.2); Glucose 94 mg/dL (70-99); Potassium 4.2 mmol/L (3.3-5.1); Protein, Total 7.3 g/dL (5.9-8.4); Sodium Level 142 mmol/L (133-145); Total Bilirubin 1.44 mg/dL (0.00-1.30)
== END | disposition home or self-care (01) ==
LOC: MFPLAB 15:39
PROVIDERS: PCP Family Medicine; Referring Provider Family Medicine; Visit Provider Family Medicine
DX: R39.89 Other symptoms and signs involving the genitourinary system (principal)
CPT/HCPCS: 36415; 80053; 85025; 86140

== ENCOUNTER → 2024-12-25 | Outpatient (CLI) | payer MEDICARE, BC, SELFPAY | END | disposition home or self-care (01) | LOC: MFPLAB 14:54 → LABSPEC 14:55 | PROVIDERS: PCP Family Medicine; Referring Provider Family Medicine; Visit Provider Family Medicine | DX: R39.89 Other symptoms and signs involving the genitourinary system (principal) | CPT/HCPCS: 87086; 87088 ==

== ENCOUNTER 2025-01-15 14:31 | Outpatient (CLI) | payer MEDICARE, BC, SELFPAY ==
[2025-01-15 15:10] LABS: Absolute Lymphocyte Count 1.77 X10^3/uL (0.83-4.51); Absolute Neutrophil Count 4.8 X10^3/uL (2.0-7.7); Basophil# 0.05 X10^3/uL; Basophil% 0.6 % (0-1); Eosinophils% 3.9 % (0-5); Hematocrit 44.3 % (40-54); Hemoglobin 14.5 g/dL (13.0-16.5); Lymphocyte # 1.77 X10^3/ul (0.83-4.51); Lymphocyte % 22.9 % (19-41); Mean Corp Hgb Conc 32.7 g/dL (32-36); Mean Corpuscular Hgb 29.9 pg (27.0-32.0); Mean Corpuscular Volume 91.3 fL (80-94); Mean Platelet Vol. 9.1 fl (6.2-12.0); Monocyte# 0.78 X10^3/uL; Monocyte% 10.1 % (0-10); NRBC Flagged by Analyzer 0 % (0-5); Neutrophil % 62.1 % (47-70); Platelet Count 224 K/mm3 (150-450); RBC Distribution Width CV 13.8 % (11.6-14.6); RBC Distribution Width SD 46.8 fl (35.1-43.9); Red Blood Count 4.85 M/mm3 (4.6-6.2); White Blood Count 7.7 K/mm3 (4.4-11.0)
[2025-01-15 16:07] LABS: PSA,Total - Annual Screen 3.83 ng/mL (0.02-4.00); PSA,Total- Diagnostic 3.83 ng/mL (0.00-4.00)
[2025-01-15 16:12] LABS: ALB/GLOB Ratio 1.4 RATIO (0.9-2.4); AST(SGOT) 28 U/L (<=37); Alanine Aminotransfer ALT/SGPT 21 U/L (<=46); Albumin, Serum 4.1 g/dL (3.4-4.8); Alkaline Phosphatase 94 U/L (40-129); Anion Gap 11 (5-15); BUN 16 mg/dL (4-19); BUN/Creat Ratio 12.6 RATIO (10-20); Calcium,Total 9.3 mg/dL (7.6-11.0); Carbon Dioxide 23.4 mmol/L (21.0-32.0); Chloride 107 mmol/L (98-108); Creatinine, Serum 1.24 mg/dL (0.70-1.20); EST Glomerular Filtration Rate 63 (>60); Globulin 2.9 g/dL (2.2-4.2); Glucose 89 mg/dL (70-99); Potassium 3.9 mmol/L (3.3-5.1); Protein, Total 7.1 g/dL (5.9-8.4); Sodium Level 142 mmol/L (133-145); Total Bilirubin 1.25 mg/dL (0.00-1.30); Vitamin D,25 Hydroxy 43.1 ng/mL (30-100)
[2025-01-15 16:16] LABS: Microalbumin,Random Urine 27.9 mg/L (NO RANGE EST.)
[2025-01-15 16:23] LABS: CRP < 3.00 mg/L (0.0-3.0); Cholesterol 137 mg/dL (<=200); High Density Lipoprotein 42 mg/dL; Low Density Lipoprotein Calc. 83 mg/dL; Magnesium 2.1 mg/dL (1.5-2.2); Triglycerides 63 mg/dL; Very Low Density Lipoprotein 13 mg/dL (5-40); cholesterol:hdl ratio screen 3.29
== END 2025-01-15 23:59 | disposition home or self-care (01) ==
LOC: LAB 14:32
PROVIDERS: PCP Family Medicine; Referring Provider Internal Medicine Endocrinology, Diabetes & Metabolism; Visit Provider Internal Medicine Endocrinology, Diabetes & Metabolism
DX: Z00.00 Encounter for general adult medical examination without abnormal findings (principal); G11.8 Other hereditary ataxias; D68.61 Antiphospholipid syndrome; R39.89 Other symptoms and signs involving the genitourinary system; E05.20 Thyrotoxicosis with toxic multinodular goiter without thyrotoxic crisis or storm; I10 Essential (primary) hypertension; Z12.5 Encounter for screening for malignant neoplasm of prostate
CPT/HCPCS: 36415; 80053; 80061; 82043; 82306; 82570; 83735; 84153; 84439; 84443; 84481; 85025; 86140; G0103

== ENCOUNTER → 2025-07-28 | Outpatient (CLI) | payer MEDICARE, BC, SELFPAY ==
[2025-07-28 15:15] LABS: Free T3 2.9 pg/mL (2.18-3.98)
== END | disposition home or self-care (01) ==
LOC: LAB 13:58
PROVIDERS: PCP Family Medicine; Referring Provider Internal Medicine Endocrinology, Diabetes & Metabolism; Visit Provider Internal Medicine Endocrinology, Diabetes & Metabolism
DX: E05.90 Thyrotoxicosis, unspecified without thyrotoxic crisis or storm (principal)
CPT/HCPCS: 36415; 84439; 84443; 84481